=== PATIENT | female | born 1945 | race Caucasian/White ===

== ENCOUNTER → 2017-12-18 18:27 | Outpatient (CLI) | payer MEDICARE, OTHER, SELFPAY | PROVIDERS: Family Provider Internal Medicine; Visit Provider Physician Assistant Surgical | DX: J02.9 Acute pharyngitis, unspecified (principal) | CPT/HCPCS: 87081 ==

== ENCOUNTER → 2018-01-30 14:07 | Outpatient (CLI) | payer MEDICARE, OTHER, SELFPAY ==
--- NOTE | 2018-01-30 14:12 | RAD_ITS ---
STUDY: X-RAY - RIGHT HAND REASON FOR EXAM: Female, 72 years old. Right hand pain TECHNIQUE: 3 view(s) of the hand. COMPARISON: None. FINDINGS: No acute fracture or dislocation. Moderate to severe degenerative changes of the DIP joints throughout the hand with suggestion of erosive osteoarthritis. Degenerative change of the first carpometacarpal joint. Normal mineralization. Normal soft tissues. RAD/Hand Min 3 Views IMPRESSION: Significant degenerative changes as above Electronically Signed: Fernando Oliva DO at 9:08 EDT Tel , Service support ,
== END ==
PROVIDERS: Family Provider Internal Medicine; PCP Internal Medicine; Visit Provider Internal Medicine
DX: M79.641 Pain in right hand (principal)
CPT/HCPCS: 73130

== ENCOUNTER → 2018-04-09 14:56 | Outpatient (CLI) | payer MEDICARE, OTHER, SELFPAY ==
--- NOTE | 2018-04-09 14:56 | DT_ITS ---
This patient was seen during an EMR downtime April 02, 2018 - April 09, 2018. This patient may have a combination of paper and electronic documentation or all paper documentation. All documentation is viewable within the e-chart portion of [facility] for each patient visit.
--- NOTE | 2018-04-09 14:59 | BI_ITS ---
MAMMOGRAPHY - BILATERAL SCREENING REASON FOR EXAM: Female, 72 years old. Routine annual screening examination. PERTINENT HISTORY: JULIET HESTER GMA AGE 79 LOST 10# NO SX RT CYST ASPIRATION IN DR MORROW OFFICE 2013 TECHNIQUE: Digital bilateral breast starr (3D mammographic acquisition) in the CC and MLO projections. 2-D mediolateral oblique (MLO) and craniocaudad (CC) views of both breasts were obtained. CAD: Full Field Digital Mammography with Computer Added Detection was performed. COMPARISON: 03/22/2017, 10/28/2015 and 10/27/2014 FINDINGS: Breast Composition: The breasts are heterogeneously dense, which may obscure small masses. There are no dominant masses or suspicious calcifications. No other significant abnormalities are identified. BI/SCREENING MAMM (CAD), BILAT IMPRESSION: Stable bilateral screening mammogram. Yearly follow-up mammogram recommended. (A) ASSESSMENT CATEGORY: BIRADS Category 2: Benign. A letter regarding these results will be sent to the patient by the facility within 30 days. Approximately 10% of breast cancers are not detected by mammography. A normal mammogram should not delay biopsy of a clinically suspicious abnormality. [id number] Electronically Signed: Valentín Gross MD at 14:15 EDT Tel , Service support ,
== END ==
PROVIDERS: Family Provider Internal Medicine; PCP Internal Medicine; Visit Provider Internal Medicine
DX: Z12.31 Encounter for screening mammogram for malignant neoplasm of breast (principal)
CPT/HCPCS: 77063; 77067

== ENCOUNTER → 2018-04-17 13:22 | Outpatient (CLI) | payer MEDICARE, OTHER, SELFPAY ==
[2018-04-17 13:45] VITALS: BP 139/52; PULSE 63; RESP 16; O2SAT 94
--- NOTE | 2018-04-17 14:05 | CT_ITS ---
STUDY: CT CHEST WITHOUT CONTRAST REASON FOR EXAM: Female, 72 years old. Calcium scoring. This is a CT chest over read. RADIATION DOSAGE (If Supplied By Facility): CTDIvol = ( 8.99 ) mGy, DLP = ( 179.71 ) mGycm TECHNIQUE: Transaxial imaging was performed without the administration of intravenous contrast material. Individualized dose optimization techniques were used for this CT. COMPARISON: None. FINDINGS: There is a 2.1 cm x 2.2 cm rounded mass in the left upper lobe. A linear soft tissue density most likely a scar is seen emanating from the anterior portion of this nodular density. Correlation with a PET scan is recommended and tissue diagnosis is recommended as well. There is no demonstrated pleural abnormality. There are calcifications of the coronary arteries. Normal mediastinum. Normal hilar regions. Normal unenhanced pulmonary arteries. There is atherosclerotic calcification of the aortic arch. There are multi-level degenerative changes of the thoracic spine. Gallstones. CT/Limited Chest CT w/CCTA IMPRESSION: 2.1 cm x 2.2 cm mass in the left upper lobe. Correlation with a PET scan is recommended. Electronically Signed: Mikey Pierre MD at 15:38 EDT Tel [phone], Service support ,
[2018-04-17 14:39] VITALS: BP 132/78; PULSE 64; RESP 16; O2SAT 96
--- NOTE | 2018-04-18 09:38 | CA.SCORE ---
Calcium Scoring Date of Study:: 04/18/18 Coronary Calcium Scoring: Coronary calcium scoring. High-resolution computed tomography imaging of the chest was performed on 04/17/2018 with particular attention paid to the coronary arteries. Images from the examination were analyzed for the presence and extent of coronary artery calcification using coronary calcifications software. The patient tolerated the procedure well there were no complications. The results demonstrated evidence of mild calcification noted in the left anterior descending artery and the right coronary artery the total Wilton score was 30.4 which ranked the patient between the 25th and 50th percentile. The above is suggestive of mild plaque burden which suggests mild or minimal coronary stenosis based on the standard calcium score interpretation. Conclusion: Mild coronary calcification involving the right coronary artery predominantly.
== END ==
PROVIDERS: Family Provider Internal Medicine; PCP Internal Medicine; Visit Provider Internal Medicine
DX: E78.5 Hyperlipidemia, unspecified (principal); R89.2 Abnormal level of other drugs, medicaments and biological substances in specimens from other organs, systems and tissues
CPT/HCPCS: 75571; 76380

== ENCOUNTER → 2018-04-24 12:24 | Outpatient (CLI) | payer MEDICARE, OTHER, SELFPAY ==
--- NOTE | 2018-04-24 12:29 | BD_ITS ---
STUDY: DUAL ENERGY X-RAY ABSORPTIOMETRY / DXA REASON FOR EXAM: Female, 72 years old. The patient is postmenopausal. Loss of height. TECHNIQUE: Bone Mineral Density (BMD) measurements of lumbar spine and bilateral hips were obtained. COMPARISON: Comparison is made with prior study dated October 28, 2015. FINDINGS: Lumbar Spine (L1-L4): g/cm2 (1.445) / T-score (2.2) / Z-score (3.9) Findings are suggestive of normal bone density with a low fracture risk. Left Femur Total: g/cm2 (0.994) / T-score (0.1) / Z-score (1.5) Left Femoral Neck: g/cm2 (0.867) / T-score (-1.2) / Z-score (0.6) Right Femur Total: g/cm2 (1.006) / T-score (0.0) / Z-score (1.6) Right Femoral Neck: g/cm2 (0.895) / T-score (-1.0) / Z-score (0.8) The T-Scores on the most recent prior examination were: Lumbar Spine (L1-L4): There has been worsening of bone density since the previous examination. Left Femur Total: which represents a worsening of 9.2%. Right Femur Total: which represents a worsening of 80%. BD/Dexa Bone Density Study IMPRESSION: The patient is considered osteopenic as outlined below according to World [place] Organization (WHO) criteria with a moderate fracture risk. There has been worsening of bone density since the previous examination. Reference Information: The T-score is the number of standard deviations above or below the standard which is normal for young adults at their peak bone mineral density. The World Health Organization (WHO) interprets the T-scores as follows: Above -1 Normal bone density Between -1 and -2.5 Osteopenia Equal to / or below -2.5 Osteoporosis As a practical clinical guideline, osteopenia may be graded as follows: Mild -1 through -1.5 Moderate -1.6 through -2.0 Severe -2.1 through -2.4 The Z-score is the number of standard deviations above or below age-matched controls. A Z-score of less than -1.5 would be considered abnormal. References: 1. NIH Osteoporosis and Related Bone Diseases http://www.osteo.org 2. International Society for Clinical Densitometry http://www.iscd.org 3. National Osteoporosis Foundation http://www.nof.org Electronically Signed: Mikey Pierre MD at 14:05 EDT Tel [phone], Service support ,
== END ==
PROVIDERS: Family Provider Internal Medicine; PCP Internal Medicine; Visit Provider Internal Medicine
DX: Z78.0 Asymptomatic menopausal state (principal)
CPT/HCPCS: 77080

== ENCOUNTER → 2018-04-30 09:30 | Outpatient (CLI) | payer MEDICARE, OTHER, SELFPAY ==
--- NOTE | 2018-04-30 09:00 | PET_ITS ---
EXAMINATION: FDG PET/CT INDICATIONS: A 72-year-old female with reported history of pulmonary nodularity. COMPARISON EXAMINATION: CT of the chest report dated 04/17/18 INDEX LESION SIZE SUV INTERPRETATION Left upper hemithorax pulmonary parenchyma, left upper lobe 22.8 x 26.5-mm (frame 186) 1.1 Quantitative criteria for viable neoplasm are not fulfilled, sequential radiologic investigation recommended TECHNIQUE: Following the intravenous administration of 15.76 mCi of F-18 deoxyglucose via the left antecubital fossa, multiplanar image acquisitions of the neck, chest, abdomen and pelvis to level of mid thigh, obtained at one hour post radiopharmaceutical administration contemporaneously interpreted with the current CT of the neck, chest, abdomen and pelvis to level of mid thigh, dated 04/30/[address] of the chest report dated 04/17/18 reveal: SERUM GLUCOSE LEVEL: 112 mg/dl. HEIGHT: 61 inches. WEIGHT: 167 lbs. FINDINGS: 1. Mild increased glucose metabolism is defined in the left upper anterior hemithorax pulmonary parenchyma, left upper lobe, generating a corrected maximum calculated standard uptake value of 1.1. The maximal axial diameter of the corresponding non-calcified parenchymal density on review of CT of the thorax dated 04/30/18 is 22.8-mm (transverse) x 26.5-mm (AP). 2. Normal physiologic distribution of the radiopharmaceutical is apparent in the hepatic (3.3) and splenic parenchyma, both renal units, bladder and visualized intestinal tract. The visualized portion of the cerebral cortex, cerebellar hemispheres and basal ganglia demonstrates uniform and preserved glucose metabolism. Diffuse radiopharmaceutical concentration is noted in all four quadrants of the abdomen and pelvis. Prominent glucose concentration is observed in the anterior neck, laryngeal structures contiguous to the cricoids cartilage, cricopharyngeus musculature without evidence of soft tissue thickening most consistent with physiologic distribution of the radiopharmaceutical. Prominent glucose metabolism is defined in the descending thoracic aorta. Pertinent CT findings are as follows: CHEST: There are no additional parenchymal densities-nodules noted in the right-left hemithorax demonstrating discernible increased glucose metabolism. There is atherosclerotic calcification defined in the thoracic aorta without evidence of dilatation-aneurysm formation. Right-left subcentimeter axillary soft tissue densities are ametabolic. ABDOMEN AND PELVIS: Cholelithiasis is defined. There is atherosclerotic calcification defined in the abdominal aorta without evidence of dilatation-aneurysm formation. Pelvic arterial calcification is observed. Right-left inguinal soft tissue densities with fatty hilus formation are ametabolic. SKELETAL: Degenerative changes are noted in the cervical, thoracic and lumbar spine. PET/PET/CT Tumor Base -Thigh Init IMPRESSION: 1. NEGATIVE EXAMINATION. There is no definitive quantitative scintigraphic evidence of viable neoplasm. 2. Increased glucose concentration observed in the left upper hemithorax pulmonary parenchyma, left upper lobe, does not fulfill quantitative criteria for viable neoplasm. (Álvarez et al, Annals of Internal Medicine, 138:724, 2003). 3. Metabolic and/or anatomic stability may be ensured in the left hemithorax mild metabolic pulmonary parenchymal abnormality with repeat FDG PET study and/or CT of the thorax in three months. (Xiu, Journal of Nuclear Medicine 45:88, P2004 [place]illa, Seminars in Thoracic and Cardiovascular Surgery 14:292, 2002). 4. Prominent glucose concentration observed in the descending thoracic aorta is commensurate with activated leukocytes associated with atherosclerotic plaque formation. ([place] et al, Clinical Nuclear Medicine 29:93, 2004). Electronic Signature Blane Monzon D.O. Electronically Signed: Blane Monzon DO at 23:12 EDT Tel , Service support ,
== END ==
PROVIDERS: Family Provider Internal Medicine; PCP Internal Medicine; Visit Provider Internal Medicine
DX: R91.8 Other nonspecific abnormal finding of lung field (principal)
CPT/HCPCS: 78815; A9552

== ENCOUNTER → 2018-05-24 14:20 | Outpatient (CLI) | payer MEDICARE, OTHER, SELFPAY ==
--- NOTE | 2018-05-24 14:46 | RAD_ITS ---
STUDY: X-RAY CHEST REASON FOR EXAM: Female, 72 years old. Substernal chest pain TECHNIQUE: PA and lateral views of the chest. COMPARISON: CT scan from 04/17/2018 FINDINGS: There is a 2.19 x 2.27 cm nodule in the left suprahilar region. The lungs are clear and expanded. There is no demonstrated pleural abnormality. Normal size heart. Normal mediastinum and solo. Normal visualized pulmonary arteries. Normal visualized aortic arch and descending thoracic aorta. Normal visualized thoracic spine. Normal visualized ribs, clavicles, and shoulders. There is no demonstrated abnormality of the visualized soft tissue structures of the upper abdomen. RAD/Chest PA and Lateral IMPRESSION: No acute pulmonary process Stable 2.2 cm left suprahilar nodule Electronically Signed: Elijah Campbell MD at 15:19 EDT , Service support ,
[2018-05-24 16:14] LABS: CRP 5.31 mg/L (0.0-3.0)
[2018-05-24 16:16] LABS: Erythrocyte Sedimentation Rate 3 mm/hr (0-30)
[2018-05-29 08:24] LABS: Carcinoembryonic Antigen 1.4 ng/mL (0.0-4.7)
== END ==
PROVIDERS: Family Provider Internal Medicine; PCP Internal Medicine; Visit Provider Internal Medicine Pulmonary Disease
DX: R91.1 Solitary pulmonary nodule (principal); I10 Essential (primary) hypertension
CPT/HCPCS: 36415; 71046; 82378; 85652; 86140; 87385

== ENCOUNTER → 2018-09-03 09:54 | Outpatient (CLI) | payer MEDICARE, OTHER, SELFPAY ==
[2018-09-03 13:03] LABS: Triglycerides 117 mg/dL
[2018-09-04 13:39] LABS: LDL, Direct 120295 147 mg/dL (0-99)
== END ==
PROVIDERS: Family Provider Internal Medicine; PCP Internal Medicine; Referring Provider Internal Medicine; Visit Provider Internal Medicine
DX: E78.00 Pure hypercholesterolemia, unspecified (principal)
CPT/HCPCS: 36415; 83721; 84478

== ENCOUNTER → 2018-09-19 14:27 | Outpatient (CLI) | payer MEDICARE, OTHER, SELFPAY ==
--- NOTE | 2018-09-19 14:31 | US_ITS ---
STUDY: THYROID ULTRASOUND REASON FOR EXAM: Female, 72 years old. Difficulty swallowing TECHNIQUE: Ultrasound evaluation of the thyroid was performed with real-time and static rashid-scale imaging. COMPARISON: None. FINDINGS: RIGHT LOBE: The right lobe of the thyroid gland measures 5.3 x 2.1 x 2.0 cm. There is a homogeneous echotexture. Solitary calcification of the upper right thyroid lobe measures 3 mm. No soft tissue nodules. LEFT LOBE: The left lobe of the thyroid gland measures 4.3 x 2.1 x 1.5 cm. There is a homogeneous echotexture. There are no demonstrated solid, cystic or complex lesions. ISTHMUS: The isthmus measures 3.0 mm. The regional lymph nodes are normal. US/Thyroid IMPRESSION: 1. No solid or cystic nodules. 2. Enlarged right thyroid lobe. 3. Probable dystrophic calcification of the right thyroid lobe, doubtful significance. Electronically Signed: Hugo Ventura MD at 9:15 EST , Service support ,
== END ==
PROVIDERS: Family Provider Internal Medicine; PCP Internal Medicine; Referring Provider Internal Medicine; Visit Provider Internal Medicine
DX: M54.2 Cervicalgia (principal)
CPT/HCPCS: 76536

== ENCOUNTER → 2018-10-16 08:50 | Outpatient (CLI) | payer MEDICARE, OTHER, SELFPAY ==
--- NOTE | 2018-10-16 08:52 | RAD_ITS ---
STUDY: X-RAY - ESOPHAGUS (BARIUM SWALLOW) WITH FLUOROSCOPY REASON FOR EXAM: Female, 72 years old. Dysphagia. Goiter. TECHNIQUE: 16 view(s) of the esophagus were obtained following swallowing of barium. FLUOROSCOPY TIME (if supplied): (0:34) minutes/seconds COMPARISON: None. FINDINGS: There is no demonstrated esophageal foreign body. There is no demonstrated stricture or mucosal abnormality. Normal gastroesophageal junction, without a demonstrated hiatal hernia. The patient ingested a 12 mm tablet of barium. The tablet is trapped at the gastroesophageal junction. Normal visualized aortic arch and descending thoracic aorta. Normal visualized pulmonary parenchyma. There are diffuse degenerative changes of the visualized thoracic spine. RAD/Esophagus Only IMPRESSION: Normal plain film x-ray examination (barium swallow) of the esophagus. The 12 mm tablet of barium is trapped at the gastroesophageal junction. Electronically Signed: Mikey Pierre MD at 13:36 EST Tel [phone], Service support ,
--- OUTSIDE RECORDS SUMMARY | 2019-01-17 14:42 | XMS RPT_ITS | Continuity of Care Document ---
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 [address] Downtime Report MR#: [id number] Acct: [id number] Name: SACHIN SCHUSTER Rep #: [id number] : 1945 72 From: Donte De Jesus PCP: Sade Ocampo MD Status: REG CLI This patient was seen during an EMR downtime April 02, 2018 - April 09, 2018. This patient may have a combination of p aper and electronic documentation or all paper documentation. All documentation is viewable within the e-chart portion of [employer] for each patient visit. 17-Apr-[address] w/CCTA Result: Comments: See Note; NOTES: [facility] Imaging Services [address] [place] [address] w/CCTA MR#: [id number] Acct: [id number] Name: SACHIN SCHUSTER Rep #: [id number] : 1945 F 72 From: Mikey Pierre MD PCP: Sade Ocampo MD Status: REG CLI Study: Limited Chest CT w/CCTA Date of Exam: 04/17/18 Exam# [id number] Ordering Dr: Sade Ocampo MD STUDY: CT CHEST WITHOUT CONTRAST REASON FOR EXAM: Female, 72 years old. Calcium scoring. This is a CT chest over read. RADIATION DOSAGE (If Supplied By Facility): CTDIvol = ( 8.99 ) mGy, DLP = ( 179.71 ) mGy cm TECHNIQUE: Transaxial imaging was performed without the administration of intravenous contrast material. Individualized dose optimization techniques were used for this CT. COMPARISON: None. FINDINGS: There is a 2.1 cm x 2.2 cm rounded mass in the left upper lobe. A linear soft tissue density most likely a scar is seen emanating from the anterior portion of t his nodular density. Correlation with a PET scan is recommended and tissue diagnosis is recommended as well. There is no demonstrated pleural abnormality. There are calcifications of the coronary arter ies. Normal mediastinum. Normal hilar regions. Normal unenhanced pulmonary arteries. There is atherosclerotic calcification of the aortic arch. There are multi- level degenerative changes of the thorac ic spine. Gallstones. CT/Limited Chest CT w/CCTA IMPRESSION: 2.1 cm x 2.2 cm mass in the left upper lobe. Correlation with a PET scan is recomme nded. Electronically Signed: Mikey Pierre MD at 15:38 EDT Tel [phone], Service support , CC: Sade Ocampo MD Paradi Tender: Signed 09-Apr-2018 SCREENING MAMM (CAD), BILAT Result: Comments: See Note; NOTES: [facility] Imaging Services [address] [place] [address] SCREENING MAMM (CAD), BILAT MR#: [id number] Acct: [id number] Name: SACHIN SCHUSTER Rep #: [id number] : 1945 F 72 From: Valentín Gross MD PCP: Sade Ocampo MD Status: REG CLI Study: SCREENING MAMM (CAD), BILAT Date of Exam: 04/09/18 Exam# [id number] Ordering Dr: Sade Ocampo MD MAMM OGRAPHY - BILATERAL SCREENING REASON FOR EXAM: Female, 72 years old. Routine annual screening examination. PERTINENT HISTORY: FAM HX PAT GMA AGE 79 LOST 10# NO SX RT CYST ASPIRATION IN DR MORROW OFFIC E 2013 TECHNIQUE: Digital bilateral breast starr (3D mammographic acquisition) in the CC and MLO projections. 2-D mediolateral oblique (MLO) and craniocaudad (CC) views of both breasts were obtained. CA D: Full Field Digital Mammography with Computer Added Detection was performed. COMPARISON: 03/22/2017, 10/28/2015 and 10/27/2014 FINDINGS: Breast Composition: The br easts are heterogeneously dense, which may obscure small masses. There are no dominant masses or suspicious calcifications. No other significant abnormalities are identified. BI/SCREENING MAMM (CAD), BILAT IMPRESSION: Stable bilateral screening mammogram. Yearly follow-up mammogram recommended. (A) ASSESSM ENT CATEGORY: BIRADS Category 2: Benign. A letter regarding these results will be sent to the patient by the facility within 30 days. Approximately 10% of breast cancers are not detected by mammography . A normal mammogram should not delay biopsy of a clinically suspicious abnormality. [id number] Electronically Signed: Valentín Gross MD at 14:15 EDT Tel , Service support [phone], CC: Sade Ocampo MD Paradi Tender: Signed 30-Jan-2018 Hand Min 3 Views Result: Comments: See Note; NOTES: [facility] Imaging Services [address] [place] [id number] Hand Min 3 Views MR#: [id number] Acct: [id number] Name: SACHIN SCHUSTER Rosana Rep #: [id number] D OB: 1945 F 72 From: Fernando Oliva DO PCP: Sade Ocampo MD Status: REG CLI Study: Hand Min 3 Views Date of Exam: 01/30/18 Exam# [id number] Ordering Dr: Sade Ocampo MD STUDY: X-RAY - RIGHT HAND R KEON FOR EXAM: Female, 72 years old. Right hand pain TECHNIQUE: 3 view(s) of the hand. COMPARISON: None. FINDINGS: No acute fracture or dislocation. Moderate to s evere degenerative changes of the DIP joints throughout the hand with suggestion of erosive osteoarthritis. Degenerative change of the first carpometacarpal joint. Normal mineralization. Normal soft tis sues. RAD/Hand Min 3 Views IMPRESSION: Significant degenerative changes as above Electronically Signed: Fernando Oliva DO at 9:08 EDT T el , Service support , CC: Sade Ocampo MD Paradi Tender: Signed 18-Dec-2017 Urgent Care Visit Report Result: Comments: See Note; NOTES: [facility] [address] [place] [address] OFFICE VISIT Date of Service: 12/18/17 MR#: [id number] Acct: [id number] Name: SACHIN SCHUSTER Rosana braga #: [id number] : 1945 Provider: Kyle JIMENEZ Age/Sex: 72/F Location: [facility] Status: Signed Intake Vital Signs12/18/17 Height 5 ft 2 in 12/18/17 Weight: 170 lb 8 oz Intake Visit Reasons: SO RE THROAT Health Science Specialist Required: No Accompanied by: None Is patient in pain?: No Allergies No Known Allergies Allergy (Unverified 12/18/17 11:08) Medications losartan 100 mg-hydrochlorothiazide 12. 5 mg tablet PO 60 Days #60 12/18/17 [History Confirmed 12/18/17] pantoprazole 40 mg tablet,delayed release PO 60 Days #60 12/18/17 [History Confirmed 12/18/17] PFSH Medical History Arthritis (Acute) knee pain (Acute) HTN (hypertension) (Chronic) Surgical History History of hysterectomy (Acute) History of tonsillectomy (Acute) Family History Father Parkinson disease Social History Smoking St atus: Never smoker alcohol intake: never HPI HPI Details: SACHIN SCHUSTER, is a 72 F who presents to the office today for sore throat and nasal congestion for the past 2 days. Patient states that he r sore throat has been increasingly worsening and describes it as feeling like raw meat. She denies fever, chills, sweats. No known ill contacts. No nausea, vomiting, diarrhea. No other associated sympt oms or alleviating/aggravating factors. ROS Const Constitutional: No fever(s), headache(s), anorexia, chills or abnormal sleep pattern ENT ENT: Positive for post nasal drip and sore throat; no headach e(s) Resp Respiratory: No shortness of breath Cardio Cardiology: No irregular heart rhythm or palpitations Gastro GI: No nausea/dyspepsia Neuro Neurology: No headache(s) or behavioral changes Psych Psyc hiatric: No behavioral changes, No abnormal sleep pattern Exam Const General: cooperative, healthy appearing HENMT Head: normal to inspection Ears: hearing grossly normal bilaterally, TM's normal bila terally Nose: external nose normal, nasal discharge clear Mouth: oral mucosae normal Throat: abnormal tonsil bilaterally Resp Effort AND Inspection: normal respiratory effort Auscultation: Bilateral: Cl ear to Auscultation Cardio Palpation: normal PMI Rate: regular rate Rhythm: regular rhythm Neuro General: CN's II-XI intact bilaterally Psych Appearance: grossly normal Mental Status: mental status patricio sly normal Assessment AND Plan Problems 1. Acute pharyngitis, unspecified etiology J02.9 Status Acute Plan A strep test in the office today was negative. Encouraged to get plenty of rest, drink lots of clear liquids, and use Tylenol or Ibuprofen (unless contraindicated) for fever and comfort. Patient also educated on other symptomatic management techniques. To be seen in 7-10 days if no improvement ; sooner if worsening of symptoms. Patient advised of potential red flags and when appropriate report to the ED. Patient verbalized understanding of all the above. This note was generated with [employer] software. It may contain incorrect words, spelling, and punctuation that were not noted in checking the note before signing. Coding Level of Care Code Off vis,new,level 3 Diagnoses Acute ph aryngitis, unspecified etiology J02.9 Pharyngitis/tonsillitis etiology: unspecified etiology 12/18/17 1154 <Electronically signed by Kyle JIMENEZ> Date Kyle JIMENEZ Cosigner Signature: Date (if applicable) CC: 12-May-2017 Hip 2-3 Views with Pelvis Result: Comments: See Note; NOTES: [facility] Imaging Services [address] [place] [address] Verdana 4d Hip 2-3 Views with Pelvis MR#: [id number] Acct: [id number] Name: LEAHSACHIN J Rep #: [id number] : 1945 F 71 From: Mikey Pierre MD PCP: Sade Ocampo MD Status: [facility] CLI Study: Hip 2-3 Views with Pelvis Date of Exam: 05/12/17 Exam# [id number] Ordering Dr: Kodi Ocampo MD STUDY: X-RAY - PELVIS AND LEFT HIP REASON FOR EXAM: Female, 71 years old. Left hip pain. TECHNIQUE: Radiological exam, hip, unilateral, with pelvis when performed; 2 or 3 views. COMPARISON: N one. FINDINGS: There is a non-specific bowel gas pattern. There are multiple calcified phleboliths. Normal bilateral iliac wings, sacroiliac joints and visualized s acrum. Normal bilateral superior and inferior pubic rami. Normal pubic symphysis. Normal bilateral ischial tuberosities. Normal visualized femoral head. Normal acetabulum. Normal hip joint. RAD/Hip 2-3 Views with Pelvis IMPRESSION: Normal x-ray examination of the pelvis and hip. Electronically Signed: Mikey Pierre MD at 12:44 EDT Tel [phone], Service support , CC: Sade Ocampo MD Paradi Tender: Signed 12-May-2017 L/S Spine Min 4 Views Result: Comments: See Note; NOTES: [facility] Imaging Services [address] [place] [address] Verdana 4d L/S Spine Min 4 Views MR#: [id number] Acct: [id number] Name: SACHIN SCHUSTER p #: [id number] : 1945 F 71 From: Mikey Pierre MD PCP: Sade Ocampo MD Status: REG CLI Study: L/S Spine Min 4 Views Date of Exam: 05/12/17 Exam# [id number] Ordering Dr: Sade Ocampo MD STUDY: X-RAY - LUMBAR SPINE REASON FOR EXAM: Female, 71 years old. Low back and left leg pain. TECHNIQUE: 5 view(s) of the lumbar spine were obtained including oblique views. COMPARISON: None FINDINGS: Normal lumbar lordosis. There is no substantial scoliosis. Minimal anterior listhesis of L4 on L5. Normal vertebral bodies and endplates. Mild degree of disc spa ce narrowing at the L4-L5 and L5-S1 levels. Facet joint osteoarthritis. Facet joint osteoarthritis. There is atherosclerotic calcification of the abdominal aorta without a demonstrated aneurysm. RAD/L/S Spine Min 4 Views IMPRESSION: Degenerative changes of the spine, as detailed above. Electronically Signed: Mikey Pierre MD a t 12:43 EDT Tel [phone], Service support , CC: Sade Ocampo MD Paradi Tender: Signed 29-Mar-2017 Breast Limited Unilateral Result: Comments: See Note; NOTES: [facility] Imaging Services [address] [place] [address] Lillie 4d Breast Limited Unilateral MR#: [id number] Acct: [id number] Name: SACHIN SCHUSTER Rep #: [id number] : 1945 F 71 From: Mikey Pierre MD PCP: Sade Ocampo MD Status: REG CLI Study: Breast Limited Unilateral Date of Exam: 03/29/17 Exam# [id number] Ordering Dr: Kodi Ocampo MD STUDY: ULTRASOUND BREAST - RIGHT REASON FOR EXAM: Female, 71 years old. Abnormal screening mammogram. TECHNIQUE: Axial and longitudinal images of the RIGHT breast were performed with a high re solution ultrasound transducer. COMPARISON: Comparison is made with prior mammogram dated March 22, 2017 and prior right breast ultrasound dated May 21, 2014. FINDIN GS: RIGHT Breast: There is evidence of a retroareolar ductal dilatation. Adjacent to the nipple, there is an 8 mm x 3 mm x 2 mm hypoechoic nodule. This may be a dilated duct with debris within it. This is unchanged. US/Breast Limited Unilateral IMPRESSION: Mildly dilated retroareolar ducts. Stable 8 mm x 2 mm x 2 mm hypoechoic nodule most likel y representing a dilated duct with debris within it. This is unchanged. ASSESSMENT CATEGORY: BIRADS Category 2: Benign. A letter regarding these results will be sent to the patient by the facility within 30 days. Electronically Signed: Mikey Pierre MD at 15:51 EDT Tel [phone], Service support , CC: Sade Ocampo MD Paradi Tender: Signed 22-Mar-2017 SCREENING MAMM (CAD), BILAT Result: Comments: See Note; NOTES: [facility] Imaging Services [address] [place] [address] Florindana 4d SCREENING MAMM (CAD), BILAT MR#: [id number] Acct: [id number] Name: HELLEN SCHUSTER Rep #: [id number] : 1945 F 71 From: Mikey Pierre MD PCP: Sade Ocampo MD Status: REG CLI Study: SCREENING MAMM (CAD), BILAT Date of Exam: 03/22/17 Exam# [id number] Ordering Dr: Sade Ocampo MD MAMMOGRAPHY - BILATERAL SCREENING REASON FOR EXAM: Female, 71 years old. Routine annual screening examination. PERTINENT HISTORY: Grandmother with breast cancer. TECHNIQUE: Digital bilate ral breast starr (3D mammographic acquisition) in the CC and MLO projections. 2- D mediolateral oblique (MLO) and craniocaudad (CC) views of both breasts were obtained. CAD: Full Field Digital Mammography with Computer Added Detection was performed. COMPARISON: Comparison is made with prior study dated October 28, 2015 and October 27, 2014. FINDINGS: Breast Compos ition: There are scattered areas of fibroglandular density. I suspect a 1 cm nodular density along the inferior medial portion of the right breast. Correlation with ultrasound is recommended. No other significant abnormalities are identified. HPBI/SCREENING MAMM (CAD), BILAT IMPRESSION: I suspect a 1 cm nodular density along the inferior media l portion of the right breast as described. Correlation with ultrasound is recommended. ASSESSMENT CATEGORY: BIRADS Category 0: Incomplete. Need additional imaging evaluation. A letter regarding these results will be sent to the patient by the facility within 30 days. Approximately 10% of breast cancers are not detected by mammography. A normal mammogram should n ot delay biopsy of a clinically suspicious abnormality. [id number] Electronically Signed: Mikey Pierre MD at 8:05 EDT Tel [phone], Service support , CC: Sade Ocampo MD Paradi Tender: Signed 21-Jun-2016 PT D/C Summary (1) Result: Comments: See Note; NOTES: [facility] [address] [place] [address] Fax REHABILITATION SERVICES [employer] JOSE SUMMARY MR#: [id number] Acct: [id number] Name: SACHIN SCHUSTER Rep #: [id number] : 1945 70 From: Dora Cunningham MPT Referring Dr.: OUT OF TOWN DOCTOR Status: REG RCR Insurance: MEDICARE P ART A B AETNA HP - PT D/C Summary It has been my pleasure to treat SACHIN SCHUSTER under orders from Out of Town Doctor, RADHA COTTRELL for the diagnosis of Chondroplasty and medial menisectomy for a total of 13 visit(s). Discharge Date: Please see the following information for a summary of their discharge status. - Subjective Subjective: Pt reports that she has been having less pain sinc e walking better with heel to toe pattern. said to continue with PT for another 4 weeks. Pt conmplains of a little bit of burning below the incision. If pt stands very long it bothers her still but t hat is still much better. Has done 2 round of the exercises today. - Pain R knee pain Pain Intensity (Out of 10): 1 - Objective Objective/Function: Pt had increase discomfort with foam rolling and palpation on the R Quad. Improved knee ext with gait - Goals Goal 1:: I HEP Goal Progress: Goal Met Goal 2:: Stand long enough to get her hair done or complete meal prep without having to sit down. Goa l Progress: Goal Met Goal 3:: Up and down stairs recip with 1 rail with ease and no pain Goal Progress: Progressing Goal 4:: Increase R hip and knee strength by 1/2 muscle. Goal Progress: Progressing Go al 5:: Decrease pain and stiffness to 1/10 by DC and walk normally. Goal Progress: Not Progressing - Plan Plan: Continue to progress R knee ROM AND STRENGTH AND KNEE EXT. ENCOURAGE PROPER GAIT VISION REHABILITATION THERAPIST S - D/C Information If there are questions or concerns regarding this patient's physical therapy, please feel free to call me at [phone]. Thank you for the referral of this patient. Sincerely, An carmel Cunningham <Electronically signed by Dora DODSON> 06/21/16 9928 CC: RADHA COTTRELL; Sade Ocampo MD; OUT OF TOWN DOCTOR Signed 25-May-2016 Re-Evaluation - PT (1) Result: Comments: See Note; NOTES: [facility] [place] [address] Fax REEVALUATION / ME DICARE RECERTIFICATION [place] [facility] PHYSICAL THERAPY MR#: [id number] Acct: [id number] Name: SACHIN SCHUSTER Rep #: [id number] : 1945 70 From: Dora DODSON Referring : OUT OF TOWN DOCTOR Status: REG RCR Insurance: MEDICARE PART A B AETNA Out of Town Doctor, RADHA COTTRELL It has been my pleasure to treat SACHIN SCHUSTER over the last 11 visits for Chondroplasty an d medial menisectomy. Please see the progress note below for an update on the physical therapy plan of care! Subjective: I could not sleep on Monday after PT and this morning every step I take it is painful along the joint and under the patella. I think we ar doing something here to aggrevate it. Objective/Function: Pt still walks with a bent knee. Feels that could be why she is having infra pa tellar pain Plan Plan: Pt willcontinue to do SLR etc at home. and rest until next Monday and resume PT. Goals Goal 1:: I HEP Goal Time Frame: 4-6 Weeks Goal Progress: Goal Met Goal 2:: Stand lo ng enough to get her hair done or complete meal prep without having to sit down. Goal Time Frame: 4-6 Weeks Goal Progress: Goal Met Goal 3:: Up and down stairs recip with 1 rail with ease and no clara n Goal Time Frame: 4-6 Weeks Goal Progress: Progressing Goal 4:: Increase R hip and knee strength by 1/2 muscle. Goal Time Frame: 4-6 Weeks Goal Progress: Progressing Goal 5:: Decrease pain and st iffness to 1/10 by DC and walk normally. Goal Time Frame: 4-6 Weeks Goal Progress: Not Progressing Anticipated Interventions Therapeutic Exercise to Include: Strength training, Flexibilty training, Gait and locomotor training, Active ROM Functional Training to Include: Gait training Comments: stairs Cryotherapy (ice pack, ice massage): Yes Ultrasound (thermal/non thermal): Yes Please do not hesitate to contact me at [phone] by phone or if you have questions or concerns regarding this new plan of care! Sincerely, Dora Cunningham <Electronically signed by Dora Cunningham MPT> 05/25/161916 CC: RADHA COTTRELL; Sade Ocampo MD; OUT OF TOWN DOCTOR Signed For Medicare only, by signing this I certify the pl an of care. Physicians Signature Date 29-Apr-2016 Inital Evaluation (1) - PT Result: Comments: See Note; NOTES: [facility] [address] [place] [address] Rd[address] [place] [address] Fax REHABILITATION SE RVICES INITIAL EVALUATION MR#: [id number] Acct: [id number] Name: SACHIN SCHUSTER Rep #: [id number] : 1945 70 From: Dora DODSON Referring Dr.: OUT OF TOWN DOCTOR Status: REG RCR Insurance: MEDICARE PART A B AETNA Patient's Visit Information SACHIN SCHUSTER is a 70 year old F referred to Physical Therapy by Out of Town Doctor RADHA COTTRELL with a diagnosis of Kevyn droplasty and medial menisectomy. Date of Evaluation: 04/29/16 Physical Therapist: Dora Cunningham - Visit Plan Frequency: 3x /Week Duration: 4 Weeks - Subjective Subjective: Pt likes to go by [place]. Pt reports that 3 weeks ago toagnesshelley pt had menisuc surgery. Pt reports that she has a lot of arthritis and Dr suggested PT. She reports that her knee is still sore and stiff. Pt has trouble with s tanding for long periods of time and causes increase stiffness and pain. Pt has not tried stairs. Pt [place]. Pt had trouble going down stairs before the meniscal tear. Pt reports that her R knee is full or arthritis. Pt is no longer using her walker. Pt had a chondroplasty and menisectomy 3 weeks ago. - Pain R knee pain Pain Intensity (Out of 10): 3 - Objective R LE girth measurements: 36.5 Tibial tuberosity, 37.7, 43. L LE girth measurements: 36.4 cm , 38.6, 41cm. R knee AROM: -3 degrees to 92 degrees. L knee AROM: 0-115 degrees. SLR R knee 2 X 10 with slight lag and weakness present. Increase discomfort for QS under the knee cap. Stairs: up and down recip with 2 handrails with slight antalgic gait. Gait: ambulates with slight de creased stance time on the R. - Goals Goal 1:: I HEP Goal Time Frame: 4-6 Weeks Goal 2:: Stand long enough to get her hair done or complete meal prep without having to sit down. Goal Time Frame: 4-6 Weeks Goal 3:: Up and down stairs recip with 1 rail with ease and no pain Goal Time Frame: 4-6 Weeks Goal 4:: Increase R hip and knee strength by 1/2 muscle. Goal Time Frame: 4-6 Weeks Goal 5:: Decrease pain and stiffness to 1/10 by DC and walk normally. Goal Time Frame: 4-6 Weeks - Rehabilitation Potential Rehabilitation Potential: Good - Anticipated Interventions Therapeutic Exercise to Include: Strength training, Flexibilty training, Gait and locomotor training, Active ROM For the Purpose of:: To decrease pain, To decrease swelling/inflammation, To increase ROM, To improve nutr ient delivery to tissue, To improve muscle performance and motor function, To improve ability to perform ADL's, To improve ability of physical actions for home/community/ work/leisure, To improve gait and locomotor functions, To improve health of tissue, To decrease soft tissue restriction, To increase flexibility/ROM Functional Training to Include: Gait training Comments: stairs For the Purpose o f:: To improve ability of physical actions for home/community/work/leisure, To improve gait and locomotor functions Cryotherapy (ice pack, ice massage): Yes Ultrasound (thermal/non thermal): Yes For the Purpose of:: To decrease pain, To decrease swelling/inflammation, To increase ROM, To improve nutrient delivery to tissue, To increase oxygenation perfusion Thank you for the opportunity to ev aluate your patient. For Medicare and Medicare HMO plans, please review the plan of care and approve it. It will need to be FAXED BACK to us at [phone] for Medicare purposes. Please let me kn ow if there are questions or concerns regarding this plan of care. Physician Signature: Date: <Electronically signed by Dora coyle MPT> 04/29/16 1338 CC: RADHA COTTRELL; Sade Ocampo MD; OUT OF TOWN DOCTOR Signed For Medicare only, by signing this I certify the plan of care . Physicians Signature Date 09-Mar-2016 Lower Ext Joint Only (Routine) Result: Comments: See Note; NOTES: [facility] Imaging Services [address] [place] [address] Verdana 4d Lower Ext Joint Only (Routine) MR#: [id number] Acct: [id number] Na me: SACHIN SCHUSTER Rep #: [id number] : 1945 F 70 From: Hermann Inman MD PCP: Sade Ocampo MD Status: REG CLI Study: Lower Ext Joint Only (Routine) Date of Exam: 03/09/16 Exam# [id number] O rdering Dr: Marck Armendariz STUDY: MRI RIGHT KNEE REASON FOR EXAM: Female, 70 years old. Right knee pain, swelling and difficulty bearing weight TECHNIQUE: Standardized fat and water weighted pu lse sequences were obtained in all 3 orthogonal planes. COMPARISON: None. FINDINGS: There is a horizontal tear of the posterior horn of the medial meniscus, e xtending to the inferior articular surface sagittal proton density series 3 image 3). There is no displaced fragment. There is meniscal extrusion The body and anterior horn of the medial meniscus are normal. Normal meniscal root ligaments.. There is diffuse, greater than 50% thickness articular cartilage loss of the medial femorotibial compartment. Normal medial femoral condyle and tibial plateau . Normal medial collateral ligamentous complex (MCL). Normal distal semimembranosus, gracilis and semitendinosus tendons. Normal lateral meniscus. Normal hyaline cartilage of the lateral femorotib ial compartment. Normal lateral femoral condyle and tibial plateau. Normal proximal tibiofibular articulation. Normal lateral collateral (fibular) ligament. Normal popliteus tendon . Normal biceps femoris tendon. Normal anterior cruciate ligament (ACL). Normal posterior cruciate ligament (PCL). Normal congruent patellofemoral articulation. There is diffuse, greater than 50% thickness articular cartilage loss of the patellofemoral compartment. Normal medial and lateral patellar retinaculum. Normal quadriceps tendon. Normal patellar tendon. Normal Hoffa's fat pad. Ther e is a small volume joint effusion. There is a small popliteal cyst The soft tissues are unremarkable. The otherwise visualized osseous structures are unremarkable. __ IMPRESSION: Horizontal tear of the posterior horn of the medial meniscus with meniscal extrusion. 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 Small volume joint eff usion with small popliteal cyst. Electronically Signed: Hermann Inman MD, FACR at 8:04 EDT , Service support [phone], CC: MARCK ARMENDARIZ; Sade Ocampo MD Paradi Tender: Signed 28-Oct-2015 Bilat Scrn Digital AND CAD Result: Comments: See Note; NOTES: [facility] Imaging Services [address] [place] [address] Verdana 4d Bilat Scrn Digital AND CAD MR#: [id number] Acct: [id number] Name: SACHIN SCHUSTER Rep #: [id number] : 1945 F 69 From: Jose Elias Campbell MD PCP: Sade Ocampo MD Status: REG CLI Study: Bilat Scrn Digital AND CAD Date of Exam: 10/28/15 Exam# [id number] Ordering Dr: Sade Ocampo MD MAMMOGRAPHY - BILATERAL SCREENING REASON FOR EXAM: Female, 69 years old. Routine annual screening examination. PERTINENT HISTORY: Grandmother with breast cancer. TECHNIQUE: Digital examination. Mediolateral oblique (MLO) and craniocaudad (CC) views of both breasts were obtained. CAD: CAD was performed on this study. COMPARISON: 10/27/14 ____ FINDINGS: Breast Composition: There are scattered areas of fibroglandular density. There are no dominant masses or suspicious calcifications. Scattered benign punctate calcifications No oth er significant abnormalities are identified. There has been no significant change since the prior study. IMPRESSION: Stable bilateral screening mammogram. Yearly follow-up recommended. (A) ASSESSMENT CATEGORY: BIRADS Category 2: Benign. A letter regarding these results will be sent to the patient by the facility within 30 days. BR2 Approximately 10% of breast cancers are not detected by mammography. A normal mammogram should not delay biopsy of a clinically suspicious abnormality. [id number] Electronically Betsy d: Elijah Campbell MD at 11:23 EST Tel , Service support [phone], CC: Sade Ocampo MD Paradi Tender: Signed 28-Oct-2015 Dexa Bone Density Study (HP) Result: Comments: See Note; NOTES: [facility] Imaging Services [address] [place] [address] Verdana 4d Dexa Bone Density Study (HP) MR#: [id number] Acct: [id number] Name : SACHIN SCHUSTER Rep #: [id number] : 1945 F 69 From: Mikey Pierre MD PCP: Sade Ocampo MD Status: REG CLI Study: Dexa Bone Density Study (HP) Date of Exam: 10/28/15 Exam# [id number] Ella staples Dr: Sade Ocampo MD STUDY: DUAL ENERGY X-RAY ABSORPTIOMETRY / DXA REASON FOR EXAM: Female, 69 years old. The patient is postmenopausal. Loss of height. TECHNIQUE: Bone Mineral Density (BMD) measurements of lumbar spine and bilateral hips were obtained. COMPARISON: Comparison is made with prior study dated May 06, 2004. FINDINGS: Lumbar Spin e (L1-L4): g/cm2 (1.490) / T-score (2.6) / Z-score (4.2) Findings are suggestive of normal bone density with a low fracture risk. Left Femur Total: g/cm2 (1.095) / T-score (0.7) / Z-score (2.1) Left Femoral Neck: g/cm2 (0.950) / T-score (-0.6) / Z-score (1.0) Right Femur Total: g/cm2 (1.093) / T-score (0.7) / Z-score (2.1) Right Femoral Neck: g/cm2 (0.945) / T-score (-0.7) / Z-score (1.0) The T-Scores on the most recent prior examination were: Lumbar Spine (L1-L4): There has been improvement of bone density since the previous examination. Left Femur Total: which represents a worsening o f 0.5%. IMPRESSION: The patient is considered normal as outlined below according to World Bal[place] Organization (WHO) criteria with a low fracture risk. There has been improvement of bone density since the previous examination. Reference Information: The T-score is the number of standard deviations above or below the sta ndard which is normal for young adults at their peak bone mineral density. The World Health Organization (WHO) interprets the T-scores as follows: Above -1 Normal bone density Between -1 and -2.5 O steopenia Equal to / or below -2.5 Osteoporosis As a practical clinical guideline, osteopenia may be graded as follows: Mild -1 through -1.5 Moderate -1.6 through -2.0 Severe -2.1 through -2.4 T he Z-score is the number of standard deviations above or below age-matched controls. A Z-score of less than -1.5 would be considered abnormal. References: 1. NIH Osteoporosis and Related Bone Diseas es http://www.osteo.org 2. International Society for Clinical Densitometry http://www.iscd.org 3. National Osteoporosis Foundation http://www.nof.org Electronically Signed: Mikey Pierre MD at 8:33 EST Tel [phone], Service support [phone], CC: Sade Ocampo MD Paradi Tender: Signed 27-Oct-2014 Bilat Scrn Digital AND CAD Result: Comments: See Note; NOTES: [facility] Imaging Services [address] [place] [address] Breast Imaging Report MR#: [id number] Acct: [id number] Name: Leigh Ann SCHUSTER Rep #: [id number] : 1945 F 68 From: Jose Elias Campbell MD PCP: Sade Ocampo MD Status: REG CLI Study: Elizabeth Kuldip Digital AND CAD Date of Exam: 10/27/14 Exam# [id number] Ordering Dr: Sade Ocampo MD MAMM OGRAPHY - BILATERAL SCREENING REASON FOR EXAM: Female, 68 years old. Routine annual screening examination. PERTINENT HISTORY: Grandmother with breast cancer. TECHNIQUE: Digital examination. Medio lateral oblique (MLO) and craniocaudad (CC) views of both breasts were obtained. CAD: CAD was performed on this study. COMPARISON: 10/11/13 FINDINGS: Breast C omposition: There are scattered areas of fibroglandular density. There are no dominant masses or suspicious calcifications. No other significant abnormalities are identified. There has been no sign ificant change since the prior study. IMPRESSION: Stable bilateral screening mammogram. Yearly follow-up recommended. (A) A SSESSMENT CATEGORY: BIRADS Category 2: Benign. A letter regarding these results will be sent to the patient by the facility within 30 days. BR2 Approximately 10% of breast cancers are not detected by mammography. A normal mammogram should not delay biopsy of a clinically suspicious abnormality. Electronically Signed: Elijah Campbell MD at 14:42 EST Tel [phone], Service supp ort [phone], CC: Sade Ocampo MD Paradi Tender: Signed 17-Oct-2014 EKG (40037) Comments: see scanned document of test done to see results reviewed today with patient Result: [MEASUREMENTS ANALYSIS] Date of Test: 10/17/2014 10:58:06; Heart Rate: 77; [place] Interval: 142; QRS: 96; QT Interval: 382; Corrected QT Interval (QTc): 411; P Wave Gardner: 43; QRS Wave Gardner: 10; T Wave Gardner: -1; Blood Pressure: 120/80 [ECG DIAGNOSTIC STATEMENTS] Date of Test: 10/17/2014 10:58:06; Summary: Sinus Rhythm WITHIN NORMAL LIMITS 21-May-2014 Breast Unilateral Result: Comments: See Note; NOTES: [facility] Imaging Services [address] [place] [address] Ultrasound Report MR#: [id number] Acct: [id number] Name: Leigh Ann SCHUSTER Rep #: [id number] : 1945 F 68 From: Valentín Gross MD PCP: Sade Ocampo MD Status: REG CLI Study: Breast Unilateral Date of Exam: 05/21/14 Exam# [id number] Ordering Dr: Teodoro Humphries MD STUDY: ULTRAS OUND BREAST(S) - RIGHT REASON FOR EXAM: Female, 68 years old. TECHNIQUE: Axial and longitudinal images of the RIGHT breast were performed with a high resolution ultrasound transducer. COMPARISON: None. FINDINGS: RIGHT BREAST: The lower inner aspect of the right breast was examined. There is a 0.4x0.7x0.4 cm hypo- echoic lesion has decreased in size sinc e the previous study it measured previously 1.2 cm x 1.3 cm x 0.4 cm at the 6:00 position of the breast at 2 cm from nipple. There is also evidence of a 5x5x4 mm hypoechoic probably cystic structure in that has remained stable in size since earlier study it measured previously 5 mm x 6 mm x 4 mm this may represent focally dilated ducts with debris within it. Diagnostic aspiration is recommended . IMPRESSION: Findings in the inferior medial aspect of the right breast as described. These may represent dilated ducts with debris the lesion at 6:00 N+2 has decreased in size. The lesion at 3:00 N +1 remains stable ASSESSMENT CATEGORY: BIRADS Category 3: Probably Benign Finding - Initial Short-Interval Follow-up Granados ggested. Electronically Signed: Bree Gross MD at 17:35 EDT Tel , Service support [phone], CC: Sade Ocampo MD; Teodoro Humphries MD Paradi Tender: Signed 25-Feb-2014 Upper Ext Joint Only(Routine) Result: Comments: See Note; NOTES: [facility] Services [address] [place] [address] MRI Report MR#: [id number] Acct: [id number] Name: Leigh Ann SCHUSTER Rep #: [id number] : 1945 F 68 From: Hossein Matos MD PCP: Sade Ocampo MD Status: REG CLI Study: Upper Ext Joint Only(Routine) Date of Exam: 02/25/14 Exam# [id number] Ordering Dr: Christian Beard DO STUDY: MRI L EFT SHOULDER REASON FOR EXAM: Female, 68 years old. Shoulder pain. TECHNIQUE: Standardized fat and water weighted pulse sequences were obtained in all 3 orthogonal planes. COMPARISON: Radiographs dated February 14, 2014 showing osteoarthritic changes. FINDINGS: There is supraspinatus tendinosis with articular surface fraying of the anterior fibers and thin nidia/attenuation of the mid and posterior fibers (coronal series 4 images 9-13). There is infraspinatus tendinosis with a small partial articular surface tear of the tendon measuring 6 mm in diameter and occupying approximately 30% of tendon thickness (coronal series 4 image 8). There is mild subscapularis tendinosis with thickening without a full- thickness tear (axial series 3 images 9-14). Norm al teres minor tendon. Normal supraspinatus muscle. Normal infraspinatus muscle. Normal subscapularis muscle. Normal teres minor muscle. There is moderate glenohumeral joint arthrosis with loss of articular cartilage and osteophyte formation and a small glenohumeral joint effusion (axial series 3 images 8-14). There is cystic change in the lateral aspect of the humeral head (axial series 3 im age 8). Normal biceps labral complex. Normal intracapsular long biceps tendon. Normal labrum. Normal capsulo- ligamentous complex. Normal rotator interval. There is acromioclavicular joint hypertrop hy with marked narrowing of the subacromial space (sagittal series 6 images 4- 10). There is a Type II morphology (curved), with a neutral orientation. There is a small amount of fluid in the subacrom ial-subdeltoid bursa (coronal series 4 images 8-10). Normal visualized coracohumeral and coracoacromial ligaments. Normal quadrilateral space. Normal axillary space. Normal deltoid muscle. Normal t rapezius muscle. IMPRESSION: Supraspinatus and subscapularis tendinosis without a full-thickness tear. Infraspinatus tendinosis with a partial articular surface tear as described. Moderate glenohumeral joint arthrosis. Cystic change in the humeral head. Acromioclavicular joint hypertrophy with marked narrowing of the subacromial space. Small glenohum eral joint effusion with fluid in the subacromial-subdeltoid bursa. Electronically Signed: Hossein Matos MD at 11:58 EDT , Service support [phone], CC: Sade Ocampo MD; Christian Beard Paradi Tender: Signed 14-Feb-2014 Shoulder min 2 Views Result: Comments: See Note; NOTES: [facility] Imaging Services [facility] [place] [address] Radiology Report MR#: [id number] Acct: [id number] Name: Leigh Ann SCHUSTER Rep #: [id number] : 1945 F 68 From: Mikey Pierre MD PCP: Sade Ocampo MD Status: REG CLI Study: Shoulder min 2 Views Date of Exam: 02/14/14 Exam# [id number] Ordering Dr: Christian Beard DO STUDY: X -RAY - LEFT SHOULDER REASON FOR EXAM: Female, 68 years old. History of shoulder dislocations. TECHNIQUE: 3 view(s) of the shoulder. COMPARISON: None. FINDING S: Normal glenohumeral articulation. There is degenerative arthrosis of the acromioclavicular joint without inferior osseous spur formation. Normal acromion. There is an enthesopathic erosion of th e humeral head. The soft tissue structures are unremarkable. Normal visualized pulmonary apex. IMPRESSION: Degenerative changes of the acromioclavicular joint . Electronically Signed: Mikey Pierre MD at 14:06 EDT Tel [phone], Service support [phone], 0055 RAD/Shoulder min 2 Views IMPRESSION: Degenerative changes of the acromioclavicular joint. Electronically Signed: Mikey Pierre MD at 14:06 EDT Tel [phone], Service support [phone], CC : Sade Ocampo MD; Christian Beadr Paradi Tender: Signed 16-Oct-2013 Breast Unilateral Result: Comments: See Note; NOTES: [facility] Imaging Services [address] [place] [address] Ultrasound Report MR#: [id number] Acct: [id number] Name: LEAHLeigh AnnAN Rep #: [id number] : 1945 F 67 From: Mikey Pierre MD PCP: Sade Ocampo MD Status: REG CLI Study: Breast Unilateral Date of Exam: 10/16/13 Exam# [id number] Ordering Dr: Sade Ocampo MD STUDY: ULT RASOUND BREAST(S) - RIGHT REASON FOR EXAM: Female, 67 years old. Asymmetrical breast tissue in the right breast. TECHNIQUE: Axial and longitudinal images of the RIGHT breast were performed with a high resolution ultrasound transducer. COMPARISON: Comparison is made with prior mammogram dated October 11, 2013. FINDINGS: RIGHT BREAST: The lower inner a spect of the right breast was examined. There is a 1.2 cm x 1.3 cm x 0.4 cm hypoechoic nearly cystic structure with low-level echoes within the at the 6:00 position of the breast at 2 cm from nipple. A linear lucent extension is seen. There is also evidence of a 5 mm x 6 mm x 4 mm hypoechoic mostly cystic structure at the 3:00 position of the breast at 1 cm from the nipple. These may represent fo emy dilated ducts with debris within it. Diagnostic aspiration is recommended. IMPRESSION: Findings in the inferior medial aspect of the right breast as descr ibed. These may represent dilated ducts with debris within them. Diagnostic aspiration is recommended. ASSESSMENT CATEGORY: BIRADS Category 4: Suspicious Abnorm ality - Biopsy Should Be Considered. Electronically Signed: Mikey Pierre M.D. at 16:45 EST , Service support [phone], CC: Sade Ocampo MD Paradi Tender: Signed 11-Oct-2013 Bilat Scrn Digital & CAD Result: Comments: See Note; NOTES: [facility] Imaging Services [address] [place] [address] Breast Imaging Report MR#: [id number] Acct: [id number] Name: Leigh Ann SCHUSTER Rep #: [id number] : 1945 F 67 From: Mikey Pierre MD PCP: Sade Ocampo MD Status: REG CLI Exam# [id number] Ordering Dr: Sade Ocampo MD MAMMOGRAPHY - BILATERAL SCREENING REASON FOR EXAM: Nader gutiérrez, 67 years old. Routine annual screening examination. PERTINENT HISTORY: Grandmother with breast cancer. TECHNIQUE: Digital examination. Mediolateral oblique (MLO) and craniocaudad (CC) views of both breasts were obtained. CAD: CAD was performed on this study. COMPARISON: Comparison is made with prior examination dated October 09, 2012 and October 04, 2011. FINDINGS: The breast composition is composed of scattered fibroglandular tissues ranging from 25% to 50% of the breast. Asymmetry of breast tissue in the inferior medial aspect of the rig ht breast. Correlation with ultrasound is recommended. No other significant abnormalities are identified. There has been no significant change since the prior study. ____ IMPRESSION: Asymmetry of breast tissue along the inferior medial aspect of the right breast. This was visualized on prior studies. Correlation with ultrasound is recommended. ASSESSMENT CATEGORY: BIRADS Category 0: Incomplete. Need additional imaging evaluation. A letter regarding these results will be sent to the patient by the facility within 30 da ys. Approximately 10% of breast cancers are not detected by mammography. A normal mammogram should not delay biopsy of a clinically suspicious abnormality. Electronically Signed: Mikey hernandez M.D. at 15:33 EST , Service support [phone], CC: Sade Ocampo MD Paradi Tender: Signed Immunization Name Dates Details Influenza (3 years and up) on: 13-Oct-2006 Influenza (3 years and up) on: 22-Aug-2007 Comments: lot #[id number] exp- 02/04 RDLT patient tolerated well Pneumococcal (2 years and up) on: 22-Aug-2007 Comments: lot # [id number] exp- 09/06 LDLT patient tolerated well Family History Unknown Family Member Name Dates Details Daughter 1 Status: Active Daughter 2 Status: Active Father Comments: carotid artery disease, Parkinson's, dementia 2009 91 yo Status: Active Maternal Grandfather Comments: 69 yo emphysema. sudden . nonsmoker but chew tobacco Status: Active Maternal Grandmother Comments: cancer of jaw from snuff. 80's Status: Active Mother Comments: Arthritis, severe PVD/stent dx 87yo when had knee replacemetn, stage IV CKD. dementia now stillalive in [place] 92 yo. Status: Active paternal cousins breast cancer ( late 40's) Status: Active Paternal Grandfather Comments: strokes late 60's Status: Active Paternal Grandmother Comments: lung cancer. breast cancer. 81 yo nonsmoker snuff Status: Active Social History Name Dates Details Current Work/Study Status: Unemployed not looking for work. Status: Active Exercise History: Exercises occasionally. Status: Active Living Situation: Lives with spouse. Comments: , [employer] SARA schuster [phone] Status: Active No Caffeine Use Status: Active No Drug Use Status: Active Non Drinker/No Alcohol Use Status: Active Non Smoker/No Tobacco Use Status: Active nutrition Comments: does 4-5 water a day. stopped her sweet tea. not alot sweets. veggie at lunch and dinner.2 serving of fruit Status: Active Tobacco use: Never smoker. Status: Active Tobacco Use: Never smoker. Status: Inactive Smoking Status Name Dates Details Never smoker Vital Signs Date Test Result Details :48 Temperature 97.6 f Comments: Method: Temporal Pulse 104 /min Comments: Pattern: Regular Respiration Rate 16 /min Comments: Pattern: Unlabored BP Systolic 152 mm[Hg] Comments: Patient Position: Sitting; Cuff Location: Left Arm; Cuff Size: Standard BP Diastolic 80 mm[Hg] Comments: Patient Position: Sitting; Cuff Location: Left Arm; Cuff Size: Standard Weight 168 lb Height 62 in Body Mass Index Calculated 30.73 kg/m2 Body Surface Area Calculated 1.78 m2 :58 Temperature 98.1 f Comments: Method: Temporal Pulse 87 /min Comments: Pattern: Regular Respiration Rate 16 /min Comments: Pattern: Unlabored O2 SAT 98 % Comments: Room air BP Systolic 140 mm[Hg] Comments: Patient Position: Sitting; Cuff Location: Left Arm; Cuff Size: Standard BP Diastolic 80 mm[Hg] Comments: Patient Position: Sitting; Cuff Location: Left Arm; Cuff Size: Standard Weight 168 lb Height 62 in Body Mass Index Calculated 30.73 kg/m2 Body Surface Area Calculated 1.78 m2 :58 Temperature 97.4 f Comments: Method: Temporal Pulse 100 /min Comments: Pattern: Regular Respiration Rate 20 /min Comments: Pattern: Unlabored O2 SAT 98 % Comments: Room air BP Systolic 142 mm[Hg] Comments: Patient Position: Sitting; Cuff Location: Left Arm; Cuff Size: Standard BP Diastolic 80 mm[Hg] Comments: Patient Position: Sitting; Cuff Location: Left Arm; Cuff Size: Standard Weight 167 lb Height 62 in Body Mass Index Calculated 30.54 kg/m2 Body Surface Area Calculated 1.77 m2 :32 Temperature 97.6 f Comments: Method: Temporal Pulse 62 /min Comments: Pattern: Regular Respiration Rate 20 /min Comments: Pattern: Unlabored O2 SAT 97 % Comments: Room air BP Systolic 136 mm[Hg] Comments: Patient Position: Sitting; Cuff Location: Left Arm; Cuff Size: Standard BP Diastolic 80 mm[Hg] Comments: Patient Position: Sitting; Cuff Location: Left Arm; Cuff Size: Standard Weight 177 lb Height 62 in Body Mass Index Calculated 32.37 kg/m2 Body Surface Area Calculated 1.81 m2 :24 Temperature 97.6 f Comments: Method: Temporal Pulse 74 /min Comments: Pattern: Regular Respiration Rate 18 /min Comments: Pattern: Unlabored O2 SAT 97 % Comments: Room air BP Systolic 126 mm[Hg] Comments: Patient Position: Sitting; Cuff Location: Left Arm; Cuff Size: Standard BP Diastolic 80 mm[Hg] Comments: Patient Position: Sitting; Cuff Location: Left Arm; Cuff Size: Standard Weight 177 lb Height 62 in Body Mass Index Calculated 32.37 kg/m2 Body Surface Area Calculated 1.81 m2 :45 Temperature 97.6 f Comments: Method: Temporal Pulse 84 /min Comments: Pattern: Regular Respiration Rate 22250 /min Comments: Pattern: Unlabored O2 SAT 98 % Comments: Room air BP Systolic 140 mm[Hg] Comments: Patient Position: Sitting; Cuff Location: Left Arm; Cuff Size: Standard BP Diastolic 80 mm[Hg] Comments: Patient Position: Sitting; Cuff Location: Left Arm; Cuff Size: Standard Weight 177 lb Height 62 in Body Mass Index Calculated 32.37 kg/m2 Body Surface Area Calculated 1.81 m2 :06 Temperature 97.2 f Pulse 84 /min Comments: Pattern: Regular Respiration Rate 16 /min Comments: Pattern: Unlabored O2 SAT 97 % Comments: Room air BP Systolic 136 mm[Hg] Comments: Patient Position: Sitting; Cuff Location: Left Arm; Cuff Size: Standard BP Diastolic 82 mm[Hg] Comments: Patient Position: Sitting; Cuff Location: Left Arm; Cuff Size: Standard Weight 185.125 lb Height 62 in Body Mass Index Calculated 33.86 kg/m2 Body Surface Area Calculated 1.85 m2 :31 Pulse 97 /min Comments: Pattern: Regular Respiration Rate 20 /min Comments: Pattern: Unlabored O2 SAT 97 % Comments: Room air BP Systolic 148 mm[Hg] Comments: Patient Position: Sitting; Cuff Location: Left Arm; Cuff Size: Large BP Diastolic 82 mm[Hg] Comments: Patient Position: Sitting; Cuff Location: Left Arm; Cuff Size: Large Weight 185.125 lb Height 62 in Body Mass Index Calculated 33.86 kg/m2 Body Surface Area Calculated 1.85 m2 :09 Temperature 97.6 f Comments: Method: Temporal Pulse 80 /min Comments: Pattern: Regular Respiration Rate 20 /min Comments: Pattern: Unlabored O2 SAT 97 % Comments: Room air BP Systolic 160 mm[Hg] Comments: Patient Position: Sitting; Cuff Location: Left Arm; Cuff Size: Standard BP Diastolic 100 mm[Hg] Comments: Patient Position: Sitting; Cuff Location: Left Arm; Cuff Size: Standard Weight 185 lb Height 62 in Body Mass Index Calculated 33.84 kg/m2 Body Surface Area Calculated 1.85 m2 [id number] Temperature 97.6 f Comments: Method: Temporal Pulse 86 /min Comments: Pattern: Regular Respiration Rate 18 /min Comments: Pattern: Unlabored O2 SAT 97 % Comments: Room air BP Systolic 120 mm[Hg] Comments: Patient Position: Sitting; Cuff Location: Left Arm; Cuff Size: Standard BP Diastolic 80 mm[Hg] Comments: Patient Position: Sitting; Cuff Location: Left Arm; Cuff Size: Standard Weight 178 lb Height 62 in Body Mass Index Calculated 32.56 kg/m2 Body Surface Area Calculated 1.82 m2 :36 Temperature 97.8 f Comments: Method: Oral Pulse 72 /min Comments: Pattern: Regular Respiration Rate 18 /min Comments: Pattern: Unlabored BP Systolic 122 mm[Hg] Comments: Patient Position: Sitting; Cuff Location: Left Arm; Cuff Size: Standard BP Diastolic 78 mm[Hg] Comments: Patient Position: Sitting; Cuff Location: Left Arm; Cuff Size: Standard Weight 178 lb Height 62 in Body Mass Index Calculated 32.56 kg/m2 Body Surface Area Calculated 1.82 m2 :00 Temperature 98 f Comments: Method: Oral Pulse 70 /min Comments: Pattern: Regular Respiration Rate 18 /min Comments: Pattern: Unlabored BP Systolic 122 mm[Hg] Comments: Patient Position: Sitting; Cuff Location: Left Arm; Cuff Size: Standard BP Diastolic 78 mm[Hg] Comments: Patient Position: Sitting; Cuff Location: Left Arm; Cuff Size: Standard Weight 178 lb Height 62 in Body Mass Index Calculated 32.56 kg/m2 Body Surface Area Calculated 1.82 m2 :22 Temperature 98.2 f :33 Temperature 97.8 f Comments: Method: Oral Pulse 74 /min Comments: Pattern: Regular Respiration Rate 20 /min Comments: Pattern: Unlabored BP Systolic 120 mm[Hg] Comments: Patient Position: Sitting; Cuff Location: Left Arm; Cuff Size: Standard BP Diastolic 78 mm[Hg] Comments: Patient Position: Sitting; Cuff Location: Left Arm; Cuff Size: Standard Weight 178 lb Height 62 in Body Mass Index Calculated 32.56 kg/m2 Body Surface Area Calculated 1.82 m2 :14 Temperature 97.1 f Comments: Method: Oral Pulse 80 /min Comments: Pattern: Regular Respiration Rate 17 /min BP Systolic 122 mm[Hg] Comments: Patient Position: Sitting; Cuff Location: Left Arm; Cuff Size: Standard BP Diastolic 84 mm[Hg] Comments: Patient Position: Sitting; Cuff Location: Left Arm; Cuff Size: Standard Weight 177 lb Height 62 in Body Mass Index Calculated 32.37 kg/m2 Body Surface Area Calculated 1.81 m2 :07 Comments: pt refused weight/height today Temperature 97.6 f Comments: Method: Oral Pulse 80 /min Comments: Pattern: Regular Respiration Rate 16 /min Comments: Pattern: Unlabored BP Systolic 140 mm[Hg] Comments: Patient Position: Sitting; Cuff Location: Left Arm; Cuff Size: Large BP Diastolic 82 mm[Hg] Comments: Patient Position: Sitting; Cuff Location: Left Arm; Cuff Size: Large :14 Temperature 97.2 f Comments: Method: Oral Pulse 68 /min Comments: Pattern: Regular Respiration Rate 18 /min Comments: Pattern: Unlabored BP Systolic 140 mm[Hg] Comments: Patient Position: Sitting; Cuff Location: Left Arm; Cuff Size: Standard BP Diastolic 78 mm[Hg] Comments: Patient Position: Sitting; Cuff Location: Left Arm; Cuff Size: Standard Weight 177 lb Height 62 in Body Mass Index Calculated 32.37 kg/m2 Body Surface Area Calculated 1.81 m2 :45 Temperature 97.7 f Comments: Method: Oral Pulse 68 /min Comments: Pattern: Regular Respiration Rate 18 /min Comments: Pattern: Unlabored BP Systolic 124 mm[Hg] Comments: Patient Position: Sitting; Cuff Location: Left Arm; Cuff Size: Standard BP Diastolic 80 mm[Hg] Comments: Patient Position: Sitting; Cuff Location: Left Arm; Cuff Size: Standard Weight 177 lb Height 62 in Body Mass Index Calculated 32.37 kg/m2 Body Surface Area Calculated 1.81 m2 : Temperature 97.9 f Comments: Method: Oral Pulse 64 /min Comments: Pattern: Regular Respiration Rate 18 /min Comments: Pattern: Unlabored BP Systolic 126 mm[Hg] Comments: Patient Position: Sitting; Cuff Location: Left Arm; Cuff Size: Standard BP Diastolic 86 mm[Hg] Comments: Patient Position: Sitting; Cuff Location: Left Arm; Cuff Size: Standard Weight 176 lb Height 62 in Body Mass Index Calculated 32.19 kg/m2 Body Surface Area Calculated 1.81 m2 :56 Temperature 98.2 f Comments: Method: Oral Pulse 72 /min Comments: Pattern: Regular Respiration Rate 18 /min Comments: Pattern: Unlabored BP Systolic 124 mm[Hg] Comments: Patient Position: Sitting; Cuff Location: Left Arm; Cuff Size: Standard BP Diastolic 80 mm[Hg] Comments: Patient Position: Sitting; Cuff Location: Left Arm; Cuff Size: Standard Weight 176 lb Height 62 in Body Mass Index Calculated 32.19 kg/m2 Body Surface Area Calculated 1.81 m2 :36 Temperature 98.2 f Comments: Method: Oral Pulse 72 /min Comments: Pattern: Regular Respiration Rate 18 /min Comments: Pattern: Unlabored BP Systolic 120 mm[Hg] Comments: Patient Position: Sitting; Cuff Location: Left Arm; Cuff Size: Standard BP Diastolic 80 mm[Hg] Comments: Patient Position: Sitting; Cuff Location: Left Arm; Cuff Size: Standard Weight 176 lb :21 Pulse 70 /min Comments: Pattern: Regular Respiration Rate 16 /min Comments: Pattern: Unlabored BP Systolic 134 mm[Hg] Comments: Patient Position: Sitting; Cuff Location: Left Arm; Cuff Size: Standard BP Diastolic 78 mm[Hg] Comments: Patient Position: Sitting; Cuff Location: Left Arm; Cuff Size: Standard Weight 0 lb Height 0 in Head Circumference 0.00 cm :48 Pulse 68 /min Comments: Pattern: Regular Respiration Rate 20 /min Comments: Pattern: Unlabored BP Systolic 124 mm[Hg] Comments: Patient Position: Sitting; Cuff Location: Left Arm; Cuff Size: Large BP Diastolic 80 mm[Hg] Comments: Patient Position: Sitting; Cuff Location: Left Arm; Cuff Size: Large Weight 180 lb Height 0 in Head Circumference 0.00 cm :38 Temperature 97.6 f Comments: Method: Oral Pulse 80 /min Comments: Pattern: Regular Respiration Rate 20 /min Comments: Pattern: Unlabored BP Systolic 136 mm[Hg] Comments: Patient Position: Sitting; Cuff Location: Left Arm; Cuff Size: Large BP Diastolic 84 mm[Hg] Comments: Patient Position: Sitting; Cuff Location: Left Arm; Cuff Size: Large Weight 180 lb Height 0 in Head Circumference 0.00 cm :14 Pulse 66 /min Comments: Pattern: Regular Respiration Rate 16 /min Comments: Pattern: Unlabored Weight 180 lb Height 0 in Head Circumference 0.00 cm :37 Temperature 98.1 f Comments: Method: Oral Pulse 96 /min Comments: Pattern: Regular Respiration Rate 16 /min Comments: Pattern: Unlabored BP Systolic 140 mm[Hg] Comments: Patient Position: Sitting; Cuff Location: Right Arm; Cuff Size: Standard BP Diastolic 66 mm[Hg] Comments: Patient Position: Sitting; Cuff Location: Right Arm; Cuff Size: Standard Weight 0 lb Height 0 in Head Circumference 0.00 cm :49 Pulse 80 /min Comments: Pattern: Regular Respiration Rate 17 /min Comments: Pattern: Unlabored BP Systolic 132 mm[Hg] Comments: Patient Position: Sitting; Cuff Location: Left Arm; Cuff Size: Standard BP Diastolic 78 mm[Hg] Comments: Patient Position: Sitting; Cuff Location: Left Arm; Cuff Size: Standard Weight 180 lb Height 0 in Head Circumference 0.00 cm :42 Temperature 98.2 f Comments: Method: Oral Pulse 80 /min Comments: Pattern: Regular Respiration Rate 20 /min Comments: Pattern: Unlabored O2 SAT 98 % Comments: Room air BP Systolic 140 mm[Hg] Comments: Patient Position: Sitting; Cuff Location: Left Arm; Cuff Size: Standard BP Diastolic 80 mm[Hg] Comments: Patient Position: Sitting; Cuff Location: Left Arm; Cuff Size: Standard Weight 0 lb Height 0 in Head Circumference 0.00 cm :24 Temperature 97.2 f Comments: Method: Oral Pulse 82 /min Comments: Pattern: Regular Respiration Rate 18 /min Comments: Pattern: Unlabored BP Systolic 118 mm[Hg] Comments: Patient Position: Sitting; Cuff Location: Left Arm; Cuff Size: Standard BP Diastolic 74 mm[Hg] Comments: Patient Position: Sitting; Cuff Location: Left Arm; Cuff Size: Standard Weight 180 lb Height 0 in Head Circumference 0.00 cm :07 Temperature 97 f Comments: Method: Oral Pulse 76 /min Comments: Pattern: Regular Respiration Rate 17 /min Comments: Pattern: Unlabored BP Systolic 120 mm[Hg] Comments: Patient Position: Sitting; Cuff Location: Left Arm; Cuff Size: Standard BP Diastolic 82 mm[Hg] Comments: Patient Position: Sitting; Cuff Location: Left Arm; Cuff Size: Standard Weight 180 lb Height 0 in Head Circumference 0.00 cm :32 Temperature 98.5 f Comments: Method: Oral Pulse 84 /min Comments: Pattern: Regular Respiration Rate 18 /min Comments: Pattern: Unlabored O2 SAT 97 % Comments: Room air BP Systolic 124 mm[Hg] Comments: Patient Position: Sitting; Cuff Location: Right Arm; Cuff Size: Standard BP Diastolic 84 mm[Hg] Comments: Patient Position: Sitting; Cuff Location: Right Arm; Cuff Size: Standard Weight 0 lb Height 0 in Head Circumference 0.00 cm :41 Temperature 97.6 f Comments: Method: Oral Pulse 80 /min Comments: Pattern: Regular Respiration Rate 20 /min Comments: Pattern: Unlabored BP Systolic 124 mm[Hg] Comments: Patient Position: Sitting; Cuff Location: Left Arm; Cuff Size: Standard BP Diastolic 84 mm[Hg] Comments: Patient Position: Sitting; Cuff Location: Left Arm; Cuff Size: Standard Weight 180 lb Height 0 in Head Circumference 0.00 cm 29-Ckr-[id number]:13 Temperature 98.6 f Comments: Method: Oral Pulse 76 /min Comments: Pattern: Regular Respiration Rate 20 /min Comments: Pattern: Unlabored BP Systolic 126 mm[Hg] Comments: Patient Position: Sitting; Cuff Location: Left Arm; Cuff Size: Standard BP Diastolic 78 mm[Hg] Comments: Patient Position: Sitting; Cuff Location: Left Arm; Cuff Size: Standard Weight 180 lb Height 0 in Head Circumference 0.00 cm Results Date Description Value Details :27 Carcinoembryonic Antigen Comments: [facility] (refer to report for specific site)refer to report for address and phone number CEA 1.4 ng/mL (Normal) Range: 0.0-4.7 Comments: Caroline ECLIA methodology Nonsmokers <3.9 Smokers <5.6Performed at: [facility] [id number] Director: Steve Carey PhD, Phone: [phone] 31-Ynv-736090:27 CRP Comments: [facility] [address] [facility] [place], [address] C-REACTIVE PROT 5.31 mg/L (Abnormal) Range: 0.0-3.0 Comments: C-Reactive Protein (CRP) provides useful information for thediagnosis, therapy and monitoring of inflammatory processesand associated diseases. For the evaluation of Relative Riskfor Cardiovascular Dise ase, a High Sensitivity CRP (HSCRP)should be ordered. :27 Erythrocyte Sed Rate Comments: [facility] [address] [facility] [place], [address] SED RATE 3 mm/h (Normal) Range: 0-30 :27 URINE HISTOPLASMA ANTIGEN Comments: [facility] (refer to report for specific site)refer to report for address and phone number UR Comments: TEST RESULT LIMITSHistoplasma Gal'krys Ag Ur <0.5 <0.5 ng/mLDisclaimer: This test was developed and its performance characteristics determined by [facility] Ackerman (Normal). It has not been cleared or approved by the Food and Drug Administration. TESTING PERFORMED AT [facility]. ORIGINAL REPORT ON FILE IN LAB AG CONTAINS ADDITIONAL TEST SITE INFORMATION. 4-Tio-172306:26 Metabolic Panel, Basic (44952) Comments: PATIENT NOT FASTINGPERFORMED BY: [employer] Nyyiag9634 CesarThe Frankfurt Group & HoldingsAtrium Health Union [id number] Calcium 10.0 mg/dL (Normal) Range: 8.7-10.3 Carbon Dioxide, Total 28 mmol/L (Normal) Range: 18-29 Chloride 99 mmol/L (Normal) Range: 96-106 Potassium 4.4 mmol/L (Normal) Range: 3.5-5.2 Sodium 143 mmol/L (Normal) Range: 134-144 BUN/Creatinine Ratio 28 (Normal) Range: 12-28 eGFR If Africn Am 79 mL/min/1.73 (Normal) eGFR If NonAfricn Am 69 mL/min/1.73 (Normal) Creatinine 0.85 mg/dL (Normal) Range: 0.57-1.00 BUN 24 mg/dL (Normal) Range: 8-27 Glucose 113 mg/dL (Abnormal) Range: 65-99 22-Ieb-610591:23 Metabolic Panel, Comprehensive Comments: PATIENT NOT FASTINGPERFORMED BY: [employer] Msmzpl7082 [facility]ristonesAt[facility] Union [id number] ([id number]) ALT (SGPT) 23 [iU]/L (Normal) Range: 0-32 AST (SGOT) 22 [iU]/L (Normal) Range: 0-40 Alkaline Phosphatase 89 [iU]/L (Normal) Range: 39-117 Bilirubin, Total 0.5 mg/dL (Normal) Range: 0.0-1.2 A/G Ratio 2.4 (Abnormal) Range: 1.2-2.2 Globulin, Total 2.0 g/dL (Normal) Range: 1.5-4.5 Albumin 4.7 g/dL (Normal) Range: 3.5-4.8 Protein, Total 6.7 g/dL (Normal) Range: 6.0-8.5 Calcium 9.5 mg/dL (Normal) Range: 8.7-10.3 Carbon Dioxide, Total 25 mmol/L (Normal) Range: 18-29 Chloride 101 mmol/L (Normal) Range: 96-106 Potassium 3.9 mmol/L (Normal) Range: 3.5-5.2 Sodium 144 mmol/L (Normal) Range: 134-144 BUN/Creatinine Ratio 28 (Normal) Range: 12-28 eGFR If Africn Am 101 mL/min/1.73 (Normal) eGFR If NonAfricn Am 88 mL/min/1.73 (Normal) Creatinine 0.68 mg/dL (Normal) Range: 0.57-1.00 BUN 19 mg/dL (Normal) Range: 8-27 Glucose 94 mg/dL (Normal) Range: 65-99 25-Mxg-141337:23 CBC WITH MANUAL DIFF Comments: PATIENT NOT FASTINGPERFORMED BY: [facility] Ipavxr0401 [facility] [id number] Information: NURSE DRAW; fu DB 6-8 ([id number]) Immature Grans (Abs) 0.0 {x10E3/uL} (Normal) Range: 0.0-0.1 Immature Granulocytes 0 % (Normal) Baso (Absolute) 0.0 {x10E3/uL} (Normal) Range: 0.0-0.2 Eos (Absolute) 0.0 {x10E3/uL} (Normal) Range: 0.0-0.4 Monocytes(Absolute) 0.2 {x10E3/uL} (Normal) Range: 0.1-0.9 Lymphs (Absolute) 1.2 {x10E3/uL} (Normal) Range: 0.7-3.1 Neutrophils (Absolute) 1.8 {x10E3/uL} (Normal) Range: 1.4-7.0 Basos 0 % (Normal) Eos 1 % (Normal) Monocytes 7 % (Normal) Lymphs 36 % (Normal) Neutrophils 56 % (Normal) Platelets 182 {x10E3/uL} (Normal) Range: 150-379 RDW 13.1 % (Normal) Range: 12.3-15.4 MCHC 35.2 g/dL (Normal) Range: 31.5-35.7 MCH 33.8 pg (Abnormal) Range: 26.6-33.0 MCV 96 fL (Normal) Range: 79-97 Hematocrit 42.0 % (Normal) Range: 34.0-46.6 Hemoglobin 14.8 g/dL (Normal) Range: 11.1-15.9 RBC 4.38 {x10E6/uL} (Normal) Range: 3.77-5.28 WBC 3.2 {x10E3/uL} (Abnormal) Range: 3.4-10.8 52-Hlb-929829:23 MICROALBUMIN: CREATININE RATIO Comments: PATIENT NOT FASTINGPERFORMED BY: [employer] [id number] [facility] [id number] ([id number]) AND (23720) Alb/Creat Ratio 5.3 {mg/g_creat} (Normal) Range: 0.0-30.0 Albumin, Urine 3.7 ug/mL (Normal) Creatinine, Urine 70.0 mg/dL (Normal) 82-Ogr-097318:23 URINALYSIS (74187) Comments: PATIENT NOT FASTINGPERFORMED BY: HII TechnologiesGallup Indian Medical CenterGjbqef1206 [facility] [id number] Microscopic Examination MICNIP (Normal) Comments: Microscopic not indicated and not performed. Nitrite, Urine Negative (Normal) Urobilinogen,Semi-Qn 0.2 mg/dL (Normal) Range: 0.2-1.0 Bilirubin Negative (Normal) Occult Blood Negative (Normal) Ketones Negative (Normal) Glucose Negative (Normal) Protein Negative (Normal) WBC Esterase Negative (Normal) Appearance Clear (Normal) Urine-Color Yellow (Normal) pH 6.5 (Normal) Range: 5.0-7.5 Specific Brutus 1.018 (Normal) Range: 1.005-1.030 20-Ssp-749231:30 Culture, R/O Strep A Comments: [facility] [address] [place], [place], [address] CUSTREPA See Note (Normal) Comments: AVERY CultureNo Group A Beta Streptococcus isolated. * This cultures intended use is to screen for Beta Streptococcus A only. All other pathogens and potential pathogens will not be screened for or rep orted. If a complete workup of all potential pathogens is indicated an order for a routine throat culture is required. 6-Lvi-393937:10 ANTINUCLEAR ANTIBODIES DIRECT Comments: [facility] (refer to report for specific site)refer to report for address and phone number MILTON-DIRECT Negative (Normal) Comments: Performed at: [facility] [employer] [id number] Director: Steve Carey PhD, Phone: [phone] 5-Axv-506502:10 Ferritin Comments: [facility] [address] [place], [address] FERRITIN 251 ng/mL (Normal) Range: 8-252 04-Huj-919380:40 Methymalonic Acid, Serum Comments: today; PATIENT NOT FASTINGPERFORMED BY: [employer] [id number] BY: Artifact TechnologiesRiverview Medical CenterUcqqwn8528[address] [place] [address] [id number] ([id number]) Methylmalonic Acid, Serum 198 nmol/L (Normal) Range: 0-378 37-Jrq-677989:40 Vitamin B-12 Comments: today; PATIENT NOT FASTINGPERFORMED BY: [employer] [address] [id number] BY: Artifact TechnologiesRiverview Medical CenterBvuoug939[address] [place] [address] [id number] (cyanocobalamin) (54976) Vitamin B12 353 pg/mL (Normal) Range: 211-946 20-Ery-453773:23 HEPATITIS C ANTIBODY Comments: PATIENT NOT FASTINGPERFORMED BY: Artifact TechnologiesRiverview Medical CenterAukmpv9909[address] [place] [address] [id number] Information: NURSE DRAW (43507) Hep C Virus Ab <0.1 {s/co_ratio} (Normal) Range: 0.0-0.9 Comments: Negative: < 0.8 Indeterminate: 0.8 - 0.9 Positive: > 0.9 . The CDC recommends that a positive HCV antibody result be followed up with a HCV Nucleic Acid Amplification test (603070). :57 Alanine Aminotransferas (SGPT) Comments: DR.CHARLICK VERDIN.[facility] [address] [place], [address] ALT 32 U/L (Normal) Range: 12-78 :57 ALB/GLOB Ratio Comments: DR.CHARLICK VERDIN.[facility] [address] [place], [address] A/G 1.2 {RATIO} (Normal) Range: 0.9-2.4 :57 Albumin, Serum Comments: DR.CHARLICK VERDIN.[facility] [address] [place], [address] ALB 3.7 g/dL (Normal) Range: 3.4-5.0 :57 Alkaline Phosphatase Comments: DR.CHARLICK VERDIN.[facility] [address] [place], [address] ALK P 93 U/L (Normal) Range: 50-136 :57 AST(SGOT) Comments: DR.CHARLICK VERDIN.[facility] [address] [place], [address] AST 22 U/L (Normal) Range: 15-37 :57 Basic Metabolic Profile (BMP) Comments: DR.CHARLICK VERDIN.[facility] [address] [place], [address] GAP 8 (Normal) Range: 5-15 CO2 26.0 mmol/L (Normal) Range: 21.0-32.0 CL 105 mmol/L (Normal) Range: 98-107 K 3.8 mmol/L (Normal) Range: 3.5-5.1 NA 139 mmol/L (Normal) Range: 136-145 CA 8.9 mg/dL (Normal) Range: 8.5-10.1 BUN/CRE 26.1 {RATIO} (Abnormal) Range: 10-20 EST GFR - AA 108 mL/min (Normal) Comments: GFR Calc EST GFR 89 mL/min (Normal) Comments: Non- GFR Calc CREAT,SERUM 0.69 mg/dL (Normal) Range: 0.55-1.20 Comments: The validity of the calculated GFR AND GFRAA in patients over70 years has not been determined. Clinical correlation isessential. BUN 18 mg/dL (Normal) Range: 7-18 GLU 85 mg/dL (Normal) Range: 70-110 :57 Bilirubin, Total Comments: DR.CHARLICK VERDIN.[facility] [address] [place] [address], [address] T BILI 0.50 mg/dL (Normal) Range: 0.20-1.00 :57 Globulin Comments: DR.CHARLICK VERDIN.[facility] [address]qcji[address] [place], [place], [id number] GLOB 3.1 g/dL (Normal) Range: 2.3-3.5 :57 Lipid Profile Comments: DR.CHARLICK VERDIN.[facility] [address] [place], [place], [phone]) VLDL 17 mg/dL (Normal) Range: 5-40 LDL 117 mg/dL (Normal) Range: 0-130 HDL 57 mg/dL (Normal) Comments: Reference Range HDL <40 mg/dL Low HDL Cholesterol HDL >or= 60 mg/dL High HDL Cholesterol TRIG 83 mg/dL (Normal) Comments: Serum Triglycerides Reference Interval Normal <150 mg/dL Borderline high 150 - 199 mg/dL High 200 - 499 mg/dL Very High > or = 500 mg/dL CHOL 191 mg/dL (Normal) Comments: <200 mg/dL Desirable 200-240 mg/dL Borderline >240 mg/dL High Risk :57 Protein, Total Comments: DR.CHARLICK VERDIN.[facility] [address] [place], [place], [id number] T PROT 6.8 g/dL (Normal) Range: 6.4-8.2 21-Ceo-95981:57 Thyroid Stim Hormone (TSH) Comments: DR.CHARLICK VERDIN.[facility] [address] [place], [address] TSH 1.36 {uIU/mL} (Normal) Range: 0.358-3.74 90-Anr-333280:40 Rapid Flu (79232 x 2) Comments: neg Influenza A Ag negative (Normal) :47 CBC W/Diff, Automated Comments: [facility] [address] [place], [place], [phone] ; [address] Absolute Lymph 1.25 {X10_3/ul} (Normal) Range: 0.83-4.51 Absolute Neut 1.9 {X10_3/uL} (Abnormal) Range: 2.0-7.7 IM GRAN % 0.000 % (Normal) Range: 0.0-0.9 Comments: IG% - Immature Granulocytes (promyelocytes, myelocytes andmetamyelocytes) > 1% indicates that a LEFT SHIFT is Present. BASO% 0.6 % (Normal) Range: 0-1 EO% 2.0 % (Normal) Range: 0-5 MONO% 8.0 % (Normal) Range: 0-10 LY% 35.8 % (Normal) Range: 19-41 NEUT% 53.6 % (Normal) Range: 47-70 MPV 10.5 fL (Normal) Range: 6.2-12.0 PLT 184 K/mm3 (Normal) Range: 150-450 RDW SD 43.8 fL (Normal) Range: 35.1-43.9 RDW CV 12.1 % (Normal) Range: 11.6-14.6 MCHC 34.9 {g/gl} (Normal) Range: 32-36 MCH 34.4 pg (Abnormal) Range: 27.0-32.0 MCV 98.6 fL (Normal) Range: 81-99 HCT 43.6 % (Normal) Range: 37-47 HGB 15.2 g/dL (Abnormal) Range: 12.0-15.0 RBC 4.42 {M/mm3} (Normal) Range: 4.2-5.4 WBC 3.5 K/mm3 (Abnormal) Range: 4.4-11.0 06-Spr-01763:47 Comprehensive Metabolic Profil Comments: [facility] [address] [place], [place], [phone] GAP 9 (Normal) Range: 5-15 CO2 25.0 mmol/L (Normal) Range: 21.0-32.0 CL 106 mmol/L (Normal) Range: 98-107 K 3.9 mmol/L (Normal) Range: 3.5-5.1 NA 140 mmol/L (Normal) Range: 136-145 T BILI 0.40 mg/dL (Normal) Range: 0.20-1.00 ALT 57 U/L (Normal) Range: 12-78 ALK P 101 U/L (Normal) Range: 50-136 AST 32 U/L (Normal) Range: 15-37 CA 8.5 mg/dL (Normal) Range: 8.5-10.1 A/G 1.2 {RATIO} (Normal) Range: 0.9-2.4 GLOB 3.1 g/dL (Normal) Range: 2.3-3.5 ALB 3.7 g/dL (Normal) Range: 3.4-5.0 T PROT 6.8 g/dL (Normal) Range: 6.4-8.2 BUN/CRE 26.2 {RATIO} (Abnormal) Range: 10-20 EST GFR - AA 109 mL/min (Normal) Comments: GFR Calc EST GFR 90 mL/min (Normal) Comments: Non- GFR Calc CREAT,SERUM 0.69 mg/dL (Normal) Range: 0.55-1.20 Comments: The validity of the calculated GFR AND GFRAA in patients over70 years has not been determined. Clinical correlation isessential. BUN 18 mg/dL (Normal) Range: 7-18 GLU 95 mg/dL (Normal) Range: 70-110 :47 Lipid Profile Comments: [facility] [address] [place], [phone] VLDL 28 mg/dL (Normal) Range: 5-40 LDL 109 mg/dL (Normal) Range: 0-130 HDL 45 mg/dL (Normal) Comments: Reference Range HDL <40 mg/dL Low HDL Cholesterol HDL >or= 60 mg/dL High HDL Cholesterol TRIG 141 mg/dL (Normal) Comments: Serum Triglycerides Reference Interval Normal <150 mg/dL Borderline high 150 - 199 mg/dL High 200 - 499 mg/dL Very High > or = 500 mg/dL CHOL 182 mg/dL (Normal) Comments: <200 mg/dL Desirable 200-240 mg/dL Borderline >240 mg/dL High Risk :47 Thyroid Stim Hormone (TSH) Comments: [facility] [address] [place], [id number] TSH 1.13 {uIU/mL} (Normal) Range: 0.358-3.74 :47 Vitamin D,25 Hydroxy Comments: [facility] [address] [place], [id number] Vitamin D 25-OH 41.2 ng/mL (Normal) Comments: Vitamin D 25(OH) Status Range Deficiency <20 ng/mL (50nmol/L) Insuffciency 20 - 30 ng/mL (50 - 75 nmol/L) Sufficiency 30 - 100 ng/mL (75 - 250 nmol/L) Toxicity >100 ng/mL (>250 nmol/L) 9-Vho-242909:53 URINALYSIS (97634) Comments: PATIENT NOT FASTINGPERFORMED BY: [facility]CoRiverview Medical CenterPlftsd5422 [facility] [id number] Information: [id number] Microscopic Examination MICNIP (Normal) Comments: Microscopic not indicated and not performed. Nitrite, Urine Negative (Normal) Urobilinogen,Semi-Qn 0.2 mg/dL (Normal) Range: 0.0-1.9 Bilirubin Negative (Normal) Occult Blood Negative (Normal) Ketones Negative (Normal) Glucose Negative (Normal) Protein Negative (Normal) WBC Esterase Negative (Normal) Appearance Clear (Normal) Urine-Color Yellow (Normal) pH 7.5 (Normal) Range: 5.0-7.5 Specific Brutus 1.015 (Normal) Range: 1.005-1.030 0-Kjt-990301:53 URINE LIBBY CULTURE-IDENTIFICATN Comments: PATIENT NOT FASTINGPERFORMED BY: [facility] [id number] [facility] [id number] ([id number]) Result 1 NG36 (Normal) Comments: No growth in 36 - 48 hours. Urine Culture,Comprehensive Final report (Normal) 12-For-96741:22 CBC W/Diff, Automated Comments: Test performed at:[facility] [address] [place] [address] Absolute Lymph 1.45 {X10_3/ul} (Normal) Range: 0.83-4.51 Absolute Neut 2.8 {X10_3/uL} (Normal) Range: 2.0-7.7 IM GRAN % 0.000 % (Normal) Range: 0.0-0.9 Comments: IG% - Immature Granulocytes (promyelocytes, myelocytes andmetamyelocytes) > 1% indicates that a LEFT SHIFT is Present. BASO% 0.4 % (Normal) Range: 0-1 EO% 1.1 % (Normal) Range: 0-5 MONO% 8.1 % (Normal) Range: 0-10 LY% 30.7 % (Normal) Range: 19-41 NEUT% 59.7 % (Normal) Range: 47-70 MPV 10.4 fL (Normal) Range: 6.2-12.0 PLT 181 K/mm3 (Normal) Range: 150-450 RDW SD 40.5 fL (Normal) Range: 35.1-43.9 RDW CV 12.0 % (Normal) Range: 11.6-14.6 MCHC 35.4 {g/gl} (Normal) Range: 32-36 MCH 33.9 pg (Abnormal) Range: 27.0-32.0 MCV 95.9 fL (Normal) Range: 81-99 HCT 42.1 % (Normal) Range: 37-47 HGB 14.9 g/dL (Normal) Range: 12.0-15.0 RBC 4.39 {M/mm3} (Normal) Range: 4.2-5.4 WBC 4.7 K/mm3 (Normal) Range: 4.4-11.0 :22 Comprehensive Metabolic Profil Comments: Test performed at:[facility] [address] [place] [address] GAP 6 (Normal) Range: 5-15 CO2 28.0 mmol/L (Normal) Range: 21.0-32.0 CL 104 mmol/L (Normal) Range: 98-107 K 3.6 mmol/L (Normal) Range: 3.5-5.1 NA 138 mmol/L (Normal) Range: 136-145 T BILI 0.50 mg/dL (Normal) Range: 0.00-4.00 ALT 35 U/L (Normal) Range: 12-78 ALK P 106 U/L (Normal) Range: 50-136 AST 18 U/L (Normal) Range: 15-37 CA 8.6 mg/dL (Normal) Range: 8.5-10.1 A/G 1.1 {RATIO} (Normal) Range: 0.9-2.4 GLOB 3.3 g/dL (Normal) Range: 2.7-4.2 ALB 3.6 g/dL (Normal) Range: 3.4-5.0 T PROT 6.9 g/dL (Normal) Range: 6.4-8.2 BUN/CRE 22.5 {RATIO} (Abnormal) Range: 10-20 EST GFR - AA 92 mL/min (Normal) EST GFR 76 mL/min (Normal) CREAT,SERUM 0.8 mg/dL (Normal) Range: 0.6-1.0 BUN 18 mg/dL (Normal) Range: 7-18 GLU 100 mg/dL (Normal) Range: 70-110 :22 Lipid Profile Comments: Test performed at:[facility] [address] [place] [address] VLDL 27 mg/dL (Normal) Range: 5-40 LDL 128 mg/dL (Normal) Range: 0-130 HDL 47 mg/dL (Normal) Comments: Reference Range HDL <40 mg/dL Low HDL Cholesterol HDL >or= 60 mg/dL High HDL Cholesterol TRIG 134 mg/dL (Normal) Range: 0-199 Comments: Serum Triglycerides Reference Interval Normal <150 mg/dL Borderline high 150 - 199 mg/dL High 200 - 499 mg/dL Very High > or = 500 mg/dL CHOL 202 mg/dL (Abnormal) Comments: <200 mg/dL Desirable 200-240 mg/dL Borderline >240 mg/dL High Risk :22 Microalb:Creat Ratio,Random UR Comments: Test performed at:[facility] [address] [place] [address] MALB:CREAT 7.1 {mg/g_CRE} (Normal) MICROALBUMIN,UR 18.2 mg/L (Normal) UR CREAT 256.0 mg/dL (Normal) :22 Urinalysis, Complete Comments: How was Urine Obtained? CLEAN CATCHTest performed at:[facility] [address] [facility] [place] [address] CA OX CRYSTAL 1+ {/hpf} (Normal) MUCUS, URINE 0 SEEN {/hpf} (Normal) BACTERIA 2+ {/hpf} (Normal) SQUAM EPI 5-10 SEEN {/hpf} (Normal) Range: 5-10 RBC-UA 0-5 SEEN {/hpf} (Normal) Range: 0-5 WBC 0-5 SEEN {/hpf} (Normal) Range: 0-5 LEUK ESTERASE 25 /ul (Abnormal) OCCULT BLOOD-UR 25 /ul (Abnormal) NITRITE UR Negative (Normal) UROBILI 1 mg/dL (Abnormal) PROT DIPSTX Negative mg/dL (Normal) pH UR 6.0 (Normal) Range: 5.0 - 8.0 SP.GR. DIPSTX 1.025 (Normal) Range: 1.002-1.030 KETONE UR Negative mg/dL (Normal) BILIRUBIN URINE Negative mg/dL (Normal) GLUCOSE, UR Normal mg/dL (Normal) CLARITY Sl. Cloudy (Normal) COLOR Yellow (Normal) :22 Vitamin D,25 Hydroxy Comments: Test performed at:[facility] [address] [place] [address] Vitamin D 25-OH 44.6 ng/mL (Normal) Comments: Vitamin D 25(OH) Status Range Deficiency <20 ng/mL (50nmol/L) Insuffciency 20 - 30 ng/mL (50 - 75 nmol/L) Sufficiency 30 - 100 ng/mL (75 - 250 nmol/L) Toxicity >100 ng/mL (>250 nmol/L) :55 CBCD ANC 2.4 {X10_3/uL} (Normal) Range: 2.0-7.7 B% 0.2 % (Normal) Range: 0-1 IG% 0.200 % (Normal) Range: 0.0-0.9 Comments: IG% - Immature Granulocytes (promyelocytes, myelocytes andmetamyelocytes) > 1% indicates that a LEFT SHIFT is Present. E% 1.1 % (Normal) Range: 0-5 M% 8.3 % (Normal) Range: 0-10 L% 36.0 % (Normal) Range: 19-41 N% 54.2 % (Normal) Range: 47-70 MPV 10.6 fL (Normal) Range: 6.2-12.0 PLT 182 K/mm3 (Normal) Range: 150-450 RDWSD 41.5 fL (Normal) Range: 35.1-43.9 RDWCV 12.1 % (Normal) Range: 11.6-14.6 MCHC 35.3 {g/gl} (Normal) Range: 32-36 MCH 33.6 pg (Abnormal) Range: 27.0-32.0 HCT 41.4 % (Normal) Range: 37-47 MCV 95.4 fL (Normal) Range: 81-99 HGB 14.6 g/dL (Normal) Range: 12.0-15.0 RBC 4.34 {M/mm3} (Normal) Range: 4.2-5.4 WBC 4.4 K/mm3 (Normal) Range: 4.4-11.0 :55 CMP GAP 8 (Normal) Range: 5-15 CL 104 mmol/L (Normal) Range: 98-107 CO2 29.0 mmol/L (Normal) Range: 21.0-32.0 K 3.8 mmol/L (Normal) Range: 3.5-5.1 NA 141 mmol/L (Normal) Range: 136-145 BIT 0.40 mg/dL (Normal) Range: 0.00-1.00 ALT 39 U/L (Normal) Range: 12-78 ALK 109 U/L (Normal) Range: 50-136 AST 24 U/L (Normal) Range: 15-37 CA 9.2 mg/dL (Normal) Range: 8.5-10.1 AG 1.7 {RATIO} (Normal) Range: 0.9-2.4 GLOB 2.5 g/dL (Abnormal) Range: 2.7-4.2 ALB 4.3 g/dL (Normal) Range: 3.4-5.0 TPROT 6.8 g/dL (Normal) Range: 6.4-8.2 BC 28.6 {RATIO} (Abnormal) Range: 10-20 GFRAA 108 mL/min (Normal) GFR 89 mL/min (Normal) CREAT 0.7 mg/dL (Normal) Range: 0.6-1.0 BUN 20 mg/dL (Abnormal) Range: 7-18 GLU 94 mg/dL (Normal) Range: 70-110 41-Pjf-[id number]:55 UA Comments: How was Urine Obtained? CLEAN CATCH ANA 100 /ul (Abnormal) UOB 10 /ul (Abnormal) PRATEEK Negative (Normal) UROBU Normal mg/dL (Normal) VASQUEZ 6.0 (Normal) Range: 5.0 - 8.0 uPROTU Negative mg/dL (Normal) SGU 1.020 (Normal) Range: 1.002-1.030 KETU Negative mg/dL (Normal) BILIU Negative mg/dL (Normal) GLUR Normal mg/dL (Normal) UCLAR Clear (Normal) UCOL Yellow (Normal) 20-Jqn-186791:23 Microscopic Examination Comments: PATIENT WAS FASTINGPERFORMED BY: [facility] [id number] [facility] [id number] Bacteria None seen (Normal) Mucus Threads Present (Normal) Epithelial Cells (non renal) 0-10 {/hpf} (Normal) Range: 0 - 10 RBC None seen {/hpf} (Normal) Range: 0 - 3 WBC 0-5 {/hpf} (Normal) Range: 0 - 5 21-Qcl-319748:51 BILAT SCRN DIGITAL & CAD Radiology Report See Note (Normal) Comments: MAMMOGRAPHY - BILATERAL SCREENING REASON FOR EXAM: Female, 66 years old. Routine annual screeningexamination. PERTINENT HISTORY: Grandmother with breast cancer. TECHNIQUE: Digital exa mination. M ediolateral oblique (MLO) andcraniocaudad (CC) views of both breasts were obtained. CAD: CAD wasperformed on this study. COMPARISON: Comparison is made with prior studies dated October 04 Dece mb2009. FINDINGS:The breast composition is composed of scattered fibroglandular densities. There are no dominant masses or suspicious calcifications. No other significant abnormalities are identif ied. There has been nosignificant change since the prior study. IMPRESSION:Stable bilateral screening mammogram. Yearly follow-up recommended. (A) ASSESSMENT CATEGORY:BIRADS Category 2: Benign find ing(s). A letter regarding these resultswill be sent to the patient by the facility within 30 days. Approximately 10% of breast cancers are not detected by mammography. Anormal mammogram should not de lay biopsy of a clinically suspiciousabnormality. Signed:Mikey Pierre M.D.October 09, 2012 at 12:29:05 PM [phone] Signed GP/GP If you are the referring physician and would like to consult with theradiologist who provided this interpretation, please contact Santos Chatterjee at [phone]. If this radiologist is unavailable, youwill be directed to another radiologi st to assist. If you are a patient with a question regarding this report, pleasecontactyour referring physician directly. Professional Interpretation Provided By: [email or web address], Phone ,Fax These documents contain legally protected and confidential healthinformation intended only for the use of the individual or entity namedabove. If you are not the intended recipient, you are hereby notifiedthatany disclosure, copying, distribution, or other use of these documents isstrictly prohibited. If you have received this information in error,pleasenotify the sender immediately and ar range for the return or destructionofthese documents. Dictated on 10/09/12 1152 by Gabby TERRY,Nishascribed on 10/09/12 1234 by ITS IMPORTSign by Mikey Pierre MD on 10/09/12 1235 Si gn by: Mikey Pierre MD [id number]-Vux-[id number]:23 URINALYSIS, W/ MICRO ([id number]) Comments: PATIENT WAS FASTINGPERFORMED BY: [employer] [id number] [facility] [id number] Microscopic Examination See below: (Normal) Microscopic Examination MICRON (Normal) Comments: Microscopic follows if indicated. Nitrite, Urine Negative (Normal) Urobilinogen,Semi-Qn 1.0 mg/dL (Normal) Range: 0.0-1.9 Bilirubin Negative (Normal) Occult Blood Negative (Normal) Ketones Negative (Normal) Glucose Negative (Normal) Protein Negative (Normal) WBC Esterase Negative (Normal) Appearance Clear (Normal) Urine-Color Yellow (Normal) pH 7.5 (Normal) Range: 5.0-7.5 Specific Brutus 1.021 (Normal) Range: 1.005-1.030 27-Mxc-648381:23 MICROALBUMIN: CREATININE RATIO Comments: PATIENT WAS FASTINGPERFORMED BY: [employer] [id number] [facility] [id number] ([id number]) AND ([id number]) Microalb/Creat Ratio 3.0 {mg/g_creat} (Normal) Range: 0.0-30.0 Microalbumin, Urine 2.5 ug/mL (Normal) Range: 0.0-17.0 Creatinine, Urine 82.1 mg/dL (Normal) Range: 15.0-278.0 93-Hpn-879353:23 METABOLIC PANEL, COMPREHENSIVE Comments: PATIENT WAS FASTINGPERFORMED BY: [employer] [id number] [facility] [id number] ([id number]) ALT (SGPT) 29 [iU]/L (Normal) Range: 0-32 AST (SGOT) 24 [iU]/L (Normal) Range: 0-40 Alkaline Phosphatase, S 87 [iU]/L (Normal) Range: 25-165 Bilirubin, Total 0.5 mg/dL (Normal) Range: 0.0-1.2 A/G Ratio 2.2 (Normal) Range: 1.1-2.5 Globulin, Total 2.1 g/dL (Normal) Range: 1.5-4.5 Albumin, Serum 4.6 g/dL (Normal) Range: 3.6-4.8 Protein, Total, Serum 6.7 g/dL (Normal) Range: 6.0-8.5 Calcium, Serum 9.4 mg/dL (Normal) Range: 8.6-10.2 Carbon Dioxide, Total 23 mmol/L (Normal) Range: 20-32 Chloride, Serum 101 mmol/L (Normal) Range: 97-108 Potassium, Serum 4.3 mmol/L (Normal) Range: 3.5-5.2 Sodium, Serum 140 mmol/L (Normal) Range: 134-144 BUN/Creatinine Ratio 35 (Abnormal) Range: 11-26 eGFR If Africn Am 105 mL/min/1.73 (Normal) eGFR If NonAfricn Am 91 mL/min/1.73 (Normal) Creatinine, Serum 0.69 mg/dL (Normal) Range: 0.57-1.00 BUN 24 mg/dL (Normal) Range: 8-27 Glucose, Serum 93 mg/dL (Normal) Range: 65-99 91-Lng-199031:23 LIPID PANEL ([id number]) Comments: PATIENT WAS FASTINGPERFORMED BY: [employer] [facility] [id number] LDL/HDL Ratio 3.0 {ratio_units} (Normal) Range: 0.0-3.2 LDL Cholesterol Calc 145 mg/dL (Abnormal) Range: 0-99 HDL Cholesterol 49 mg/dL (Normal) Comments: According to ATP-III Guidelines, HDL-C >59 mg/dL is considered anegative risk factor for CHD. VLDL Cholesterol Brayden 22 mg/dL (Normal) Range: 5-40 Triglycerides 110 mg/dL (Normal) Range: 0-149 Cholesterol, Total 216 mg/dL (Abnormal) Range: 100-199 54-Vyc-242031:23 CBC WITH MANUAL DIFF Comments: PATIENT WAS FASTINGPERFORMED BY: [employer] [id number] Information: [id number] ([id number]) Immature Grans (Abs) 0.0 {x10E3/uL} (Normal) Range: 0.0-0.1 Immature Granulocytes 0 % (Normal) Range: 0-2 Baso (Absolute) 0.0 {x10E3/uL} (Normal) Range: 0.0-0.2 Eos (Absolute) 0.1 {x10E3/uL} (Normal) Range: 0.0-0.4 Monocytes(Absolute) 0.3 {x10E3/uL} (Normal) Range: 0.1-1.0 Lymphs (Absolute) 1.4 {x10E3/uL} (Normal) Range: 0.7-4.5 Neutrophils (Absolute) 1.8 {x10E3/uL} (Normal) Range: 1.8-7.8 Basos 1 % (Normal) Range: 0-3 Eos 1 % (Normal) Range: 0-7 Monocytes 8 % (Normal) Range: 4-13 Lymphs 39 % (Normal) Range: 14-46 Neutrophils 51 % (Normal) Range: 40-74 Platelets 186 {x10E3/uL} (Normal) Range: 140-415 RDW 12.7 % (Normal) Range: 12.3-15.4 MCHC 35.5 g/dL (Normal) Range: 31.5-35.7 MCH 34.4 pg (Abnormal) Range: 26.6-33.0 MCV 97 fL (Normal) Range: 79-97 Hematocrit 41.7 % (Normal) Range: 34.0-46.6 Hemoglobin 14.8 g/dL (Normal) Range: 11.1-15.9 RBC 4.30 {x10E6/uL} (Normal) Range: 3.77-5.28 WBC 3.6 {x10E3/uL} (Abnormal) Range: 4.0-10.5 1-Yfe-931372:23 KNEE,4 OR MORE VIEWS Radiology Report See Note (Normal) Comments: PROCEDURES: X-RAY - LEFT KNEE REASON FOR EXAM: Female, 66 years old. Anterior and medial pain. TECHNIQUE: Four views of the knee. COMPARISON: None. FINDINGS:There is mild degenerati ve arthrosis of the medial femorotibialcompartment. Normal lateral femorotibial compartment. Normalpatellofemoral articulation. Normal visualized distal femur. Small osteophytes at the tibial spines.There also a ppears to be an osteophyte extending posteriorly andsuperiorlyfrom the tibial plateau on the lateral view. Normal proximal tibiofibulararticulation. IMPRESSION:Degenerative arthrosis. To consult with a radiologist regarding this report, please call our [id number] line @ Dictated on 12/30/11 1234 by WALTER KAY MDTranscribed on 12/30/115 by ITS IMPORTSign by WALTER KAY MD on 12/30/111655 Sign by: WALTER KAY MD 86-Yik-542424:59 Microscopic Examination Comments: PATIENT WAS FASTINGPERFORMED BY: [employer] [place] [id number] Bacteria None seen (Normal) Mucus Threads Present (Normal) Epithelial Cells (non renal) 0-10 {/hpf} (Normal) Range: 0 - 10 RBC 0-3 {/hpf} (Normal) Range: 0 - 3 WBC 0-5 {/hpf} (Normal) Range: 0 - 5 21-Ysl-578446:59 URINALYSIS, W/ MICRO ([id number]) Comments: PATIENT WAS FASTINGPERFORMED BY: [employer] [place] [id number] Microscopic Examination See below: (Normal) Microscopic Examination MICRON (Normal) Comments: Microscopic follows if indicated. Nitrite, Urine Negative (Normal) Urobilinogen,Semi-Qn 0.2 mg/dL (Normal) Range: 0.0-1.9 Bilirubin Negative (Normal) Occult Blood Negative (Normal) Ketones Negative (Normal) Glucose Negative (Normal) Protein Negative (Normal) WBC Esterase Negative (Normal) Appearance Clear (Normal) Urine-Color Yellow (Normal) pH 6.0 (Normal) Range: 5.0-7.5 Specific Brutus 1.018 (Normal) Range: 1.005-1.030 09-Tjp-103612:59 MICROALBUMIN: CREATININE RATIO Comments: PATIENT WAS FASTINGPERFORMED BY: [employer] [place] [id number] ([id number]) AND ([id number]) Microalb/Creat Ratio 4.3 {mg/g_creat} (Normal) Range: 0.0-30.0 Creatinine, Urine 98.4 mg/dL (Normal) Range: 15.0-278.0 Microalbumin, Urine 4.2 ug/mL (Normal) Range: 0.0-17.0 85-Ftk-451093:59 METABOLIC PANEL, COMPREHENSIVE Comments: PATIENT WAS FASTINGPERFORMED BY: [facility] [id number] ([id number]) ALT (SGPT) 29 [iU]/L (Normal) Range: 0-40 AST (SGOT) 25 [iU]/L (Normal) Range: 0-40 Alkaline Phosphatase, S 90 [iU]/L (Normal) Range: 25-165 Bilirubin, Total 0.5 mg/dL (Normal) Range: 0.0-1.2 A/G Ratio 2.5 (Normal) Range: 1.1-2.5 Globulin, Total 2.0 g/dL (Normal) Range: 1.5-4.5 Albumin, Serum 4.9 g/dL (Abnormal) Range: 3.6-4.8 Protein, Total, Serum 6.9 g/dL (Normal) Range: 6.0-8.5 Calcium, Serum 9.4 mg/dL (Normal) Range: 8.6-10.2 Carbon Dioxide, Total 22 mmol/L (Normal) Range: 20-32 Chloride, Serum 104 mmol/L (Normal) Range: 97-108 Potassium, Serum 4.1 mmol/L (Normal) Range: 3.5-5.2 Sodium, Serum 140 mmol/L (Normal) Range: 134-144 Comments: Please note reference interval change BUN/Creatinine Ratio 31 (Abnormal) Range: 11-26 eGFR If Africn Am 108 mL/min/1.73 (Normal) Comments: Note: A persistent eGFR <60 mL/min/1.73 m2 (3 months or more) mayindicate chronic kidney disease. An eGFR >59 mL/min/1.73 m2 with anelevated urine protein also may indicate chronic kidney disease.Calculated using CKD-EPI formula. eGFR If NonAfricn Am 93 mL/min/1.73 (Normal) Creatinine, Serum 0.65 mg/dL (Normal) Range: 0.57-1.00 BUN 20 mg/dL (Normal) Range: 8-27 Glucose, Serum 99 mg/dL (Normal) Range: 65-99 :59 LIPID PANEL ([id number]) Comments: PATIENT WAS FASTINGPERFORMED BY: [employer] [facility] [id number] LDL/HDL Ratio 3.0 {ratio_units} (Normal) Range: 0.0-3.2 LDL Cholesterol Calc 146 mg/dL (Abnormal) Range: 0-99 VLDL Cholesterol Brayden 20 mg/dL (Normal) Range: 5-40 HDL Cholesterol 48 mg/dL (Normal) Comments: According to ATP-III Guidelines, HDL-C >59 mg/dL is considered anegative risk factor for CHD. Cholesterol, Total 214 mg/dL (Abnormal) Range: 100-199 Triglycerides 102 mg/dL (Normal) Range: 0-149 :59 CBC WITH MANUAL DIFF ([id number]) Comments: PATIENT WAS FASTINGPERFORMED BY: [employer]370 [facility] [id number] Immature Grans (Abs) 0.0 {x10E3/uL} (Normal) Range: 0.0-0.1 Immature Granulocytes 0 % (Normal) Range: 0-2 Baso (Absolute) 0.0 {x10E3/uL} (Normal) Range: 0.0-0.2 Eos (Absolute) 0.1 {x10E3/uL} (Normal) Range: 0.0-0.4 Monocytes(Absolute) 0.3 {x10E3/uL} (Normal) Range: 0.1-1.0 Lymphs (Absolute) 1.4 {x10E3/uL} (Normal) Range: 0.7-4.5 Neutrophils (Absolute) 1.9 {x10E3/uL} (Normal) Range: 1.8-7.8 Basos 0 % (Normal) Range: 0-3 Eos 2 % (Normal) Range: 0-7 Monocytes 7 % (Normal) Range: 4-13 Lymphs 38 % (Normal) Range: 14-46 Neutrophils 53 % (Normal) Range: 40-74 Platelets 193 {x10E3/uL} (Normal) Range: 140-415 RDW 12.6 % (Normal) Range: 11.7-15.0 MCHC 34.6 g/dL (Normal) Range: 32.0-36.0 MCH 33.6 pg (Normal) Range: 27.0-34.0 MCV 97 fL (Normal) Range: 80-98 Hematocrit 42.5 % (Normal) Range: 34.0-44.0 Hemoglobin 14.7 g/dL (Normal) Range: 11.5-15.0 RBC 4.37 {x10E6/uL} (Normal) Range: 3.80-5.10 WBC 3.7 {x10E3/uL} (Abnormal) Range: 4.0-10.5 1-Pvj-519458:15 BILAT SCRN DIGITAL & CAD Radiology Report See Note (Normal) Comments: MAMMOGRAPHY - BILATERAL SCREENING REASON FOR EXAM: Female, 65 years old. Routine annual screeningexamination. PERTINENT HISTORY: Grandmother with breast cancer. TECHNIQUE: Digital exa mination. M ediolateral oblique (MLO) andcraniocaudad (CC) views of both breasts were obtained. CAD: CAD wasperformed on this study. COMPARISON: Comparison is made with prior study dated October 01, 2010. FINDING S:The breast composition is composed of scattered fibroglandular densities. There are no masses or suspicious microcalcifications. No other significant abnormalities are identified. There has been nosi gnificant change since the prior study. IMPRESSION:Normal bilateral screening mammogram. One year follow-up recommended. (A) ASSESSMENT CATEGORY:BIRADS Category 2: Benign finding(s). A letter regardi ng these resultswill be sent to the patient by the facility within 30 days. Approximately 10% of breast cancers are not detected by mammography. Anormal mammogram should not delay biopsy of a clinicall y suspiciousabnormality. Dictated on 10/04/11 1137 by Kanchan Pierre MDranscribed on 10/04/11 1601 by ITS IMPORTSign by Mikey Pierre MD on 10/04/11 1602 Sign by: Mikey Pierre MD 23-Xyb-751840:06 BMP Comments: appt 04/12/11 GAP 8 (Normal) Range: 5-15 CL 102 mmol/L (Normal) Range: 98-107 CO2 30.0 mmol/L (Normal) Range: 21.0-32.0 K 4.0 mmol/L (Normal) Range: 3.5-5.1 NA 140 mmol/L (Normal) Range: 136-145 BUN/CRE 31.4 {RATIO} (Abnormal) Range: 10-20 CA 9.4 mg/dL (Normal) Range: 8.5-10.1 EST GFR 89 mL/min (Normal) EST GFR - AA 108 mL/min (Normal) BUN 22 mg/dL (Abnormal) Range: 7-18 CREAT,SERUM 0.7 mg/dL (Normal) Range: 0.6-1.0 GLU 84 mg/dL (Normal) Range: 70-110 01-Oct-20100:00 BILAT SCRN DIGITAL & CAD Radiology Report See Note (Normal) Comments: MAMMOGRAPHY - BILATERAL SCREENING INDICATION:Routine annual screening examination. PERTINENT HISTORY:This examination. Mediolateral oblique (MLO) and craniocaudad (CC)viewsof both breasts were obtained . CAD was performed on this study. COMPARISON:September 26, 2008, October 05, 2009FINDINGS:The breast composition is heterogeneously dense.There are areas of asymmetric parenchymal density which have no tsignificantly changed.There are no new masses or suspicious microcalcifications. No other significant abnormalities are identified. IMPRESSION:Normal bilateral screening mammogram. Yearly follow-up re commended. ASSESSMENT CATEGORY:Category 2: Benign finding(s) Approximately 10% of breast cancers are not detected by mammography. Anormal mammogram should not delay biopsy of a clinically suspiciousab normality. Dictated on 10/01/101533 by ANANYA ORTIZTranscribed on 10/01/101533 by MAIN WAGNERSicain by ANANYA ORTIZ on 10/04/10 1405 Sign by: ANANYA ORTIZ :40 CBCD ABSOLUTE NEUT 1.8 3/uL (Abnormal) Range: 2.0-7.7 BASO% 0.6 % (Normal) Range: 0-1 EO% 1.6 % (Normal) Range: 0-5 LY% 39.0 % (Normal) Range: 19-41 MONO% 7.3 % (Normal) Range: 0-10 NEUT% 51.5 % (Normal) Range: 47-70 MPV 8.7 fL (Normal) Range: 6.5-12.0 PLT 171 K/mm3 (Normal) Range: 150-450 MCH 35.8 pg (Abnormal) Range: 27.0-32.0 MCHC 36.3 g/dL (Abnormal) Range: 32-36 RDW 12.6 % (Normal) Range: 11.6-14.6 HCT 39.7 % (Normal) Range: 37-47 HGB 14.4 g/dL (Normal) Range: 12.0-16.0 MCV 98.8 fL (Normal) Range: 81-99 RBC 4.06 {M/mm3} (Abnormal) Range: 4.2-5.4 WBC 3.5 K/mm3 (Abnormal) Range: 4.4-11.0 :40 COMP METABOLIC CO2 30.0 mmol/L (Normal) Range: 21.0-32.0 GAP 8 (Normal) Range: 5-15 CL 104 mmol/L (Normal) Range: 98-107 K 4.2 mmol/L (Normal) Range: 3.5-5.1 ALT 36 U/L (Normal) Range: 12-78 NA 142 mmol/L (Normal) Range: 136-145 T BILI 0.50 mg/dL (Normal) Range: 0.00-1.00 ALK P 97 U/L (Normal) Range: 50-136 AST 16 U/L (Normal) Range: 15-37 CA 9.9 mg/dL (Normal) Range: 8.5-10.1 A/G 1.3 {RATIO} (Normal) Range: 0.9-2.4 GLOB 3.0 g/dL (Normal) Range: 2.7-4.2 ALB 4.0 g/dL (Normal) Range: 3.4-5.0 BUN/CRE 34.0 {RATIO} (Abnormal) Range: 10-20 T PROT 7.0 g/dL (Normal) Range: 6.4-8.2 EST GFR - AA 160 mL/min (Normal) EST GFR 132 mL/min (Normal) CREAT,SERUM 0.5 mg/dL (Abnormal) Range: 0.6-1.0 BUN 17 mg/dL (Normal) Range: 7-18 GLU 92 mg/dL (Normal) Range: 70-110 :40 LIPID VLDL 25 mg/dL (Normal) Range: 5-40 HDL 44 mg/dL (Normal) Comments: Reference Range HDL <40 mg/dL Low HDL Cholesterol HDL >or= 60 mg/dL High HDL Cholesterol LDL 145 mg/dL (Abnormal) Range: 0-130 TRIG 126 mg/dL (Normal) Comments: Serum Triglycerides Reference Interval Normal <150 mg/dL Borderline high 150 - 199 mg/dL High 200 - 499 mg/dL Very High > or = 500 mg/dL CHOL 214 mg/dL (Abnormal) Comments: <200 mg/dL Desirable 200-240 mg/dL Borderline >240 mg/dL High Risk :40 MICROALB:CRE UR MALB:CREAT 6.5 {mg/g_CRE} (Normal) MICROALBUMIN,UR 7.0 mg/L (Normal) UR CREAT 107.3 mg/dL (Normal) :40 ROUTINE UA LEUK ESTERASE SeeNote (Normal) Comments: Result: NEGATIVE OCCULT BLOOD-UR SeeNote (Abnormal) Comments: Result: TRACE-INTACT NITRITE UR SeeNote (Normal) Comments: Result: NEGATIVE PROT DIPSTX SeeNote (Normal) Comments: Result: NEGATIVE UROBILI 1.0 EU/dl (Normal) Range: 0.2 - 1.0 pH UR 6.0 (Normal) Range: 5.0-8.0 SP.GR. DIPSTX 1.015 (Normal) Range: 1.002-1.030 KETONE UR SeeNote mg/dL (Normal) Comments: Result: NEGATIVE BILIRUBIN URINE SeeNote (Normal) Comments: Result: NEGATIVE CLARITY CLEAR (Normal) GLUCOSE, UR SeeNote (Normal) Comments: Result: NEGATIVE COLOR YELLOW (Normal) 64-Kpr-824008:54 CBCD,SMEAR DIFF RED CELL MORPH SeeNote {NORMAL} (Normal) Comments: Result: NORM C+C CELLS COUNTED 100 (Normal) EOS 3 % (Normal) Range: 0-5 HCT 42.0 % (Normal) Range: 37-47 HGB 14.5 g/dL (Normal) Range: 12.0-16.0 LYMPH 42 % (Abnormal) Range: 19-41 MCH 34.2 pg (Abnormal) Range: 27.0-32.0 MCHC 34.5 g/dL (Normal) Range: 32-36 MCV 99.1 fL (Abnormal) Range: 81-99 MONOCYTE 9 % (Normal) Range: 0-10 PLT 161 K/mm3 (Normal) Range: 150-450 PLT EST SeeNote (Normal) Comments: Result: ADEQUATE RBC 4.23 {M/mm3} (Normal) Range: 4.2-5.4 RDW 12.4 % (Normal) Range: 11.6-14.6 SEGS 46 % (Abnormal) Range: 47-70 WBC 3.2 K/mm3 (Abnormal) Range: 4.4-11.0 :54 COMP METABOLIC GAP 12 (Normal) Range: 5-15 A/G 1.4 {RATIO} (Normal) Range: 0.9-2.4 ALB 3.9 g/dL (Normal) Range: 3.4-5.0 ALK P 79 U/L (Normal) Range: 50-136 ALT 37 U/L (Normal) Range: 12-78 AST 18 U/L (Normal) Range: 15-37 CA 8.9 mg/dL (Normal) Range: 8.5-10.1 CL 104 mmol/L (Normal) Range: 98-107 CO2 25.0 mmol/L (Normal) Range: 21.0-32.0 GLOB 2.7 g/dL (Normal) Range: 2.7-4.2 K 3.7 mmol/L (Normal) Range: 3.5-5.1 NA 141 mmol/L (Normal) Range: 136-145 T BILI 0.30 mg/dL (Normal) Range: 0.00-1.00 T PROT 6.6 g/dL (Normal) Range: 6.4-8.2 BUN 17 mg/dL (Normal) Range: 7-18 BUN/CRE 28.3 {RATIO} (Abnormal) Range: 10-20 CREAT,SERUM 0.6 mg/dL (Normal) Range: 0.6-1.0 EST GFR 107 mL/min (Normal) EST GFR - AA 130 mL/min (Normal) GLU 89 mg/dL (Normal) Range: 70-110 :54 COMPLETE UA BACTERIA 0 SEEN {/hpf} (Normal) LEUK ESTERASE SeeNote (Normal) Comments: Result: NEGATIVE MUCUS, URINE 0 SEEN {/hpf} (Normal) OCCULT BLOOD-UR SeeNote (Normal) Comments: Result: NEGATIVE RBC-UA 0 SEEN {/hpf} (Normal) Range: 0-5 SQUAM EPI SeeNote {/hpf} (Normal) Range: 5-10 Comments: Result: 0-5 SEEN WBC SeeNote {/hpf} (Normal) Range: 0-5 Comments: Result: 0-5 SEEN BILIRUBIN URINE SeeNote (Normal) Comments: Result: NEGATIVE CLARITY CLEAR (Normal) COLOR YELLOW (Normal) GLUCOSE, UR SeeNote (Normal) Comments: Result: NEGATIVE KETONE UR SeeNote mg/dL (Normal) Comments: Result: NEGATIVE NITRITE UR SeeNote (Normal) Comments: Result: NEGATIVE pH UR 7.0 (Normal) Range: 5.0-8.0 PROT DIPSTX SeeNote (Normal) Comments: Result: NEGATIVE SP.GR. DIPSTX <=1.005 (Normal) Range: 1.002-1.030 UROBILI 0.2 EU/dl (Normal) Range: 0.2 - 1.0 :54 LIPID CHOL 207 mg/dL (Abnormal) Comments: <200 mg/dL [id number] mg/dL Borderline>240 mg/dL High Risk HDL 46 mg/dL (Normal) Comments: Reference RangeHDL <40 mg/dL Low HDL CholesterolHDL >or= 60 mg/dL High HDL Cholesterol LDL 124 mg/dL (Normal) Range: 0-130 TRIG 186 mg/dL (Normal) Comments: Serum Triglycerides Reference IntervalNormal <150 mg/dLBorderline high 150 - 199 mg/dLHigh 200 - 499 mg/ dLVery High > or = 500 mg/dL VLDL 37 mg/dL (Normal) Range: 5-40 :54 MICROALB:CRE UR MALB:CREAT <TEST NOT PERFORMED> {mg/g_CRE} (Normal) MICROALBUMIN,UR < 5.0 mg/L (Normal) UR CREAT 27.6 mg/dL (Normal) [id number] BILAT SCRN DIGITAL & CAD Radiology Report See Note (Normal) Comments: Exam Number: [id number] MAMMOGRAM, BILATERAL SCREENING DIGITAL AND CAD HISTORYRoutine screening. Full field digital images were obtained in mediolateral oblique andcraniocaudal projections. CAD images w ere reviewed. The current study is compared to the examinations of September, October 22, 2007 and September 26, 2008. There is a moderate extent of fibroglandular parenchyma present.There is no skin thickening or retraction, architectural distortion,or cluster of suspicious microcalcifications. There is an unusualappearing density in the lower inner quadrant of the right breastwhich has been stable compared to the previous examinations. There susan somewhat similar though smaller density in the lower inner quadrantof the left breast. There is no skin thickening or retraction,architectural d istortion or cluster of suspicious microcalcifications.There are a few scattered benign calcifications present.If there is no suspicious palpable abnormality, followup mammogram in1 year is recommended. IMPRESSIONThere is no radiographic evidence of malignancy identified. FINAL ASSESSMENTBenign findings. BIRADS Category 2. A letter regarding these results has been sent to the patient. This interpret ation was rendered by a radiologist certified under theMammography Quality Standards Act of 1992 (MQSA). The mammograms werealso examined with computer- aided detection software (Lumavita.). Reported By: ANANYA ORTIZ M.D. 50-Rmy-533714:28 LOWER EXT/JT ONLY (ROUTINE) Radiology Report See Note (Normal) Comments: Exam Number: [id number] CLINICAL:63-year-old female with a 5-week history of anterior and medial right knee pain post fall. MRI RIGHT KNEE COMPARISON:None. TECHNIQUE: Standardized fat and water weighted pulse sequences were obtained in all 3 orthogonal planes. FINDINGS: There is prominent intrasubstance degeneration and surface irregularity of the medial meniscus without a discrete surfacing meniscal t ear. There is greater than a 50% loss of hyaline cartilage thickness, without exposure of the subchondral bone of the medial femorotibial compartment (Grade III, Outerbridge classification). There is mi ld osteoarthritic spur formation of the medial femoral condyle and medial tibial plateau. The medial collateral ligamentous complex is normal without a ligamentous sprain. Normal distal semimembranosus, gracilis and semitendinosus tendons. Normal lateral meniscus without a meniscal tear. There is abnormal intrachondral signal (signal increase on the T2 weighted images), but a normal chondral surface o f the hyaline cartilage of the lateral femorotibial compartment (Grade I, Outerbridge classification). There is mild osteoarthritic spur formation of the lateral femoral condyle and lateral tibial plate au. There is a normal iliotibial band. The lateral collateral fibular ligament is normal without a ligamentous sprain. The popliteus tendon is normal. Normal biceps femoris tendon. The proximal tibiof ibular articulation is normal. The anterior cruciate ligament is normal without a sprain. Normal posterior cruciate ligament. Normal congruent patellofemoral articulation with subchondral reactive edema . There is greater than a 50% loss of hyaline cartilage thickness, without exposure of the subchondral bone of the medial and lateral patellar facets (Grade III, Outerbridge classification). Normal hyal ine cartilage of the medial and lateral trochlear condyles. The medial and lateral patellar retinaculum are normal. There is enthesophyte formation the superior pole of the patella. Normal patellar tend on. Normal Hoffa's infrapatellar fat pad. There is no joint effusion. There is no popliteal cyst. There is no extravasated joint effusion. The visualized osseous structures, including the distal femur, proximal tibia and fibula are otherwise normal. The visualized muscle groups of the distal thigh and proximal leg are normal. IMPRESSION:Degeneration and surface irregularity of the medial meniscus with out a surfacing tear. Tricompartmental chondromalacia and degenerative arthrosis. Reported By: ISABELLA ROLLE M.D. 01-Oct-20089:26 CBCD BASO% 0.3 % (Normal) Range: 0-1 EO% 1.6 % (Normal) Range: 0-5 HCT 40.8 % (Normal) Range: 37-47 HGB 14.6 g/dL (Normal) Range: 12.0-16.0 LY% 35.4 % (Normal) Range: 19-41 MCH 34.6 pg (Abnormal) Range: 27.0-32.0 MCHC 35.7 g/dL (Normal) Range: 32-36 MCV 96.9 fL (Normal) Range: 81-99 MONO% 5.8 % (Normal) Range: 0-10 MPV 8.6 fL (Normal) Range: 6.5-12.0 NEUT% 56.9 % (Normal) Range: 47-70 PLT 179 K/mm3 (Normal) Range: 150-450 RBC 4.21 {M/mm3} (Normal) Range: 4.2-5.4 RDW 12.7 % (Normal) Range: 11.6-14.6 WBC 3.6 K/mm3 (Abnormal) Range: 4.4-11.0 :26 COMP METABOLIC A/G 1.5 {RATIO} (Normal) Range: 0.9-2.4 ALB 4.1 g/dL (Normal) Range: 3.4-5.0 ALK P 105 U/L (Normal) Range: 50-136 ALT 53 U/L (Normal) Range: 30-65 AST 31 U/L (Normal) Range: 15-37 BUN 16 mg/dL (Normal) Range: 7-18 BUN/CRE 40.0 {RATIO} (Abnormal) Range: 10-20 CA 9.2 mg/dL (Normal) Range: 8.5-10.1 CL 107 mmol/L (Normal) Range: 98-107 CO2 26.1 mmol/L (Normal) Range: 21.0-32.0 CREAT,SERUM 0.4 mg/dL (Abnormal) Range: 0.6-1.0 GAP 7 (Normal) Range: 5-15 GLOB 2.8 g/dL (Normal) Range: 2.7-4.2 GLU 92 mg/dL (Normal) Range: 70-110 K 3.7 mmol/L (Normal) Range: 3.5-5.1 NA 140 mmol/L (Normal) Range: 136-145 T BILI 0.52 mg/dL (Normal) Range: 0.00-1.00 T PROT 6.9 g/dL (Normal) Range: 6.4-8.2 :26 LIPID CHOL 224 mg/dL (Abnormal) Comments: <200 mg/dL Desirable 200-240 mg/dL Borderline >240 mg/dL High Risk HDL 47 mg/dL (Normal) Comments: Reference Range HDL <40 mg/dL Low HDL Cholesterol HDL >or= 60 mg/dL High HDL Cholesterol LDL 157 mg/dL (Abnormal) Range: 0-130 TRIG 99 mg/dL (Normal) Comments: Serum Triglycerides Reference Interval Normal <150 mg/dL Borderline high 150 - 199 mg/dL High 200 - 499 mg/dL Very High > or = 500 mg/dL VLDL 20 mg/dL (Normal) Range: 5-40 27-Qzf-624147:00 BILAT SCRN DIGITAL & CAD Radiology Report See Note (Normal) Comments: Exam Number: [id number] MAMMOGRAM, BILATERAL SCREENING DIGITAL AND CAD HISTORYRoutine screening. Full field digital images were obtained in mediolateral oblique andcraniocaudal projections. CAD images w ere reviewed. The current study is compared to the examinations of September 2006 andSeptember 2007. There is moderately dense fibroglandular parenchyma present. There isno skin thickening or retraction , architectural distortion, or clusterof suspicious microcalcifications. There are areas of asymmetricparenchymal density which have not significantly changed. There arealso scattered benign-appearing calcifications. There is no dominantmass or significant interval change identified. If there is nosuspicious palpable abnormality, followup mammogram in 1 year isrecommended. IMPRESSIONThere is no rad iographic evidence of malignancy identified. FINAL ASSESSMENTBenign findings. BIRADS Category 2. A letter regarding these results has been sent to the patient. This interpretation was rendered by a ra diologist certified under theMammography Quality Standards Act of 1992 (MQSA). The mammograms werealso examined with computer-aided detection software ([employer].). Reported By: ANANYA ORTIZ M.D. 02-Nov-20078:51 BMP BUN 18 mg/dL (Normal) Range: 7-18 BUN/CRE 30.0 {RATIO} (Abnormal) Range: 10-20 CA 8.8 mg/dL (Normal) Range: 8.5-10.1 CL 104 mmol/L (Normal) Range: 98-107 CO2 27.6 mmol/L (Normal) Range: 21.0-32.0 Comments: Please Note Reference Interval Change CREAT,SERUM 0.6 mg/dL (Normal) Range: 0.6-1.0 GAP 10 (Normal) Range: 5-15 GLU 89 mg/dL (Normal) Range: 70-110 K 3.9 mmol/L (Normal) Range: 3.5-5.1 NA 142 mmol/L (Normal) Range: 136-145 39-Uwk-805445:13 Urinalysis, Office ([id number]) UA - BILIRUBIN Negative (Normal) UA - BLOOD Non Hemolyzed Trace (Normal) UA - GLUCOSE Negative (Normal) UA - KETONES Negative mg/dL (Normal) UA - LEUKOCYTE ESTERASE Trace (Normal) UA - NITRITE Negative (Normal) UA - PH 6.0 (Normal) UA - PROTEIN Negative mg/dL (Normal) UA - SPECIFIC GRAVITY 1.020 (Normal) URINE UROBILINGN PAKO TIMED 2 mg/dL (Normal) 17-Sab-529778:11 BILAT SCRN DIGITAL & CAD Radiology Report See Note (Normal) Comments: Exam Number: [id number] MAMMOGRAM, BILATERAL SCREENING DIGITAL AND CAD HISTORYRoutine screening. Full field digital images were obtained in mediolateral oblique andcraniocaudal projections. CAD images w ere reviewed. The current study is compared to the examinations of August 2005 andSeptember 2006. There is moderately dense fibroglandular parenchyma present. There isno skin thickening or retraction, architectural distortion, or clusterof suspicious microcalcifications. There are areas of asymmetricparenchymal density which have not significantly changed. If there isno suspicious palpable abnorma lity, follow-up mammogram in 1 year isrecommended. IMPRESSIONThere is no radiographic evidence of malignancy identified. FINAL ASSESSMENT: Benign findings.BIRADS Category 2. A letter regarding these re sults has been sent to the patient. This interpretation was rendered by a radiologist certified under theMammography Quality Standards Act of 1992 (MQSA). The mammograms werealso examined with compute r-aided detection software (Lumavita.). Reported By: ANANYA ORTIZ M.D. 58-Shd-256417:24 Microscopic Examination Comments: PATIENT NOT FASTINGPERFORMED BY: [facility] [id number] [facility] [id number] Bacteria Moderate (Abnormal) Crystal Type Calcium Oxalate (Normal) Comments: Amorphous Sediment Crystals Present (Abnormal) Epithelial Cells (non renal) >10 {/hpf} (Abnormal) Range: 0 - 10 Mucus Threads Present (Abnormal) RBC None seen {/hpf} (Normal) Range: 0 - 3 WBC 0-5 {/hpf} (Normal) Range: 0 - 5 Yeast Present (Abnormal) 57-Zou-731736:24 URINALYSIS W/O MICRO ([id number]) Comments: PATIENT NOT FASTINGPERFORMED BY: [facility] [id number] Appearance Clear (Normal) Bilirubin Negative (Normal) Glucose Negative (Normal) Ketones Negative (Normal) Microscopic Examination See below: (Normal) Nitrite, Urine Negative (Normal) Occult Blood Negative (Normal) pH 5.5 (Normal) Range: 5.0-7.5 Protein Negative (Normal) Specific Brutus 1.023 (Normal) Range: 1.005-1.030 Urine-Color Yellow (Normal) Urobilinogen,Semi-Qn 0.2 mg/dL (Normal) Range: 0.0-1.9 WBC Esterase 1+ (Abnormal) 81-Zhb-481407:24 METABOLIC PANEL, COMPREHENSIVE Comments: PATIENT NOT FASTINGPERFORMED BY: [facility] Pwhylf5451 [facility] [id number] ([id number]) A/G Ratio 2.0 (Normal) Range: 1.1-2.5 Albumin, Serum 4.5 g/dL (Normal) Range: 3.6-4.8 Alkaline Phosphatase, S 129 [iU]/L (Normal) Range: 25-165 ALT (SGPT) 33 [iU]/L (Normal) Range: 0-40 AST (SGOT) 21 [iU]/L (Normal) Range: 0-40 Bilirubin, Total 0.3 mg/dL (Normal) Range: 0.1-1.2 BUN 14 mg/dL (Normal) Range: 5-26 BUN/Creatinine Ratio 23 (Normal) Range: 8-27 Calcium, Serum 9.2 mg/dL (Normal) Range: 8.5-10.6 Carbon Dioxide, Total 27 mmol/L (Normal) Range: 20-32 Chloride, Serum 105 mmol/L (Normal) Range: 96-109 Creatinine, Serum 0.6 mg/dL (Normal) Range: 0.5-1.5 Globulin, Total 2.3 g/dL (Normal) Range: 1.5-4.5 Glucose, Serum 104 mg/dL (Abnormal) Range: 65-99 Potassium, Serum 4.1 mmol/L (Normal) Range: 3.5-5.5 Protein, Total, Serum 6.8 g/dL (Normal) Range: 6.0-8.5 Sodium, Serum 143 mmol/L (Normal) Range: 135-148 82-Hmd-601291:24 CBC WITH MANUAL DIFF ([id number]) Comments: PATIENT NOT FASTINGClinical Information: ADD DRAW FEE [id number] ADD J 38020 PERFORMED BY: [facility] [id number] [facility] [id number] Baso (Absolute) 0.0 {x10E3/uL} (Normal) Range: 0.0-0.2 Basos 0 % (Normal) Range: 0-3 Eos 3 % (Normal) Range: 0-7 Eos (Absolute) 0.1 {x10E3/uL} (Normal) Range: 0.0-0.4 Hematocrit 41.8 % (Normal) Range: 34.0-44.0 Hemoglobin 14.8 g/dL (Normal) Range: 11.5-15.0 Lymphs 32 % (Normal) Range: 14-46 Lymphs (Absolute) 1.0 {x10E3/uL} (Normal) Range: 0.7-4.5 MCH 34.2 pg (Abnormal) Range: 27.0-34.0 MCHC 35.5 g/dL (Normal) Range: 32.0-36.0 MCV 96 fL (Normal) Range: 80-98 Monocytes 6 % (Normal) Range: 4-13 Monocytes(Absolute) 0.2 {x10E3/uL} (Normal) Range: 0.1-1.0 Neutrophils 59 % (Normal) Range: 40-74 Neutrophils (Absolute) 1.8 {x10E3/uL} (Normal) Range: 1.8-7.8 Platelets 198 {x10E3/uL} (Normal) Range: 140-415 RBC 4.34 {x10E6/uL} (Normal) Range: 3.80-5.10 RDW 12.5 % (Normal) Range: 11.7-15.0 WBC 3.1 {x10E3/uL} Range: 4.0-10.5 (Abnormal) 37-Ztq-52883:00 CULTURE, THROAT See Note (Normal) Comments: Normal throat fredo isolated. No beta-hemolyticstreptococcus isolated. 74-Lbr-547800:20 CHEST, PA AND LATERAL Radiology Report See Note (Normal) Comments: Exam Number: [id number] PA AND LATERAL CHEST HISTORYShortness of breath, chest heaviness. Cardiac configuration is normal. No acute infiltrate, effusion orpneumothorax is noted. There is spur formatio n in the mid dorsalspine. There is mild overinflation of the lungs. Further clinicalcorrelation needed. IMPRESSION1. No acute change noted in the lungs. Reported By: TRU SUNSHINE M.D. :01 CBCD,SMEAR DIFF CELLS COUNTED 100 (Normal) EOS 2 % (Normal) Range: 0-5 LYMPH 42 % (Abnormal) Range: 19-41 MONOCYTE 7 % (Normal) Range: 0-10 PLT EST SeeNote (Normal) Comments: Result: ADEQUATE RED CELL MORPH SeeNote {NORMAL} (Normal) Comments: Result: NORM C&C SEGS 49 % (Normal) Range: 47-70 HCT 40.5 % (Normal) Range: 37-47 HGB 14.5 g/dL (Normal) Range: 12.0-16.0 MCH 34.3 pg (Abnormal) Range: 27.0-32.0 MCHC 35.8 g/dL (Normal) Range: 32-36 MCV 95.9 fL (Normal) Range: 81-99 PLT 202 K/mm3 (Normal) Range: 150-450 RBC 4.22 {M/mm3} (Normal) Range: 4.2-5.4 RDW 12.3 % (Normal) Range: 11.6-14.6 WBC 3.3 K/mm3 (Abnormal) Range: 4.4-11.0 :01 COMP METABOLIC A/G 1.5 {RATIO} (Normal) Range: 0.9-2.4 ALB 4.3 g/dL (Normal) Range: 3.4-5.0 ALK P 117 U/L (Normal) Range: 50-136 ALT 39 [iU]/L (Normal) Range: 30-65 AST 17 U/L (Normal) Range: 15-37 BUN 16 mg/dL (Normal) Range: 7-18 BUN/CRE 26.7 {RATIO} (Abnormal) Range: 10-20 CA 9.1 mg/dL (Normal) Range: 8.5-10.1 CL 105 mmol/L (Normal) Range: 98-107 CO2 28.6 mmol/L (Normal) Range: 22.0-29.0 CREAT,SERUM 0.6 mg/dL (Normal) Range: 0.6-1.0 GAP 8 (Normal) Range: 5-15 GLOB 2.8 g/dL (Normal) Range: 2.3-3.5 GLU 84 mg/dL (Normal) Range: 70-110 K 3.9 mmol/L (Normal) Range: 3.5-5.1 NA 142 mmol/L (Normal) Range: 136-145 T BILI 0.55 mg/dL (Normal) Range: 0.00-1.00 T PROT 7.1 g/dL (Normal) Range: 6.4-8.2 80-Voc-38325:01 PFLIP CHOL 219 mg/dL (Abnormal) Comments: <200 mg/dL Desirable 200-240 mg/dL Borderline >240 mg/dL High Risk HDL 43 mg/dL (Normal) Comments: Reference Range HDL <40 mg/dL Low HDL Cholesterol HDL >or= 60 mg/dL High HDL Cholesterol LDL 153 mg/dL (Abnormal) Range: 0-130 TRIG 116 mg/dL (Normal) Comments: Serum Triglycerides Reference Interval Normal <150 mg/dL Borderline high 150 - 199 mg/dL High 200 - 499 mg/dL Very High > or = 500 mg/dL VLDL 23 mg/dL (Normal) Range: 5-40 Plan of Care Name Dates Details Instructions Mass of left lung : Eprescribed prescriptions (G8553) Indication: Mass of left lung Inflamed skin tag : Skin Tags Indication: Inflamed skin tag Encounter for Medicare annual wellness exam : Eprescribed prescriptions (G8553) Indication: Encounter for Medicare annual wellness exam Alteration of body temperature : Follow up if no improvement or if symptoms worsen Indication: Alteration of body temperature Laryngitis : Laryngitis Education Indication: Laryngitis Acute bronchitis due to other specified organisms : *URI Symptoms Indication: Acute bronchitis due to other specified organisms Acute bronchitis due to other specified organisms : *Antibiotic Usage Education - Female Indication: Acute bronchitis due to other specified organisms Hypertension : Follow up in 2 week Indication: Hypertension Hypertension : BP MONITORING - SELF Indication: Hypertension Allergic rhinitis : Allergic Rhinitis *: allergic rhinitis Indication: Allergic rhinitis Knee pain : Follow up in 2 weeks Indication: Knee pain Other sites of candidiasis : Follow up as needed Indication: Other sites of candidiasis Acute sinusitis, unspecified : URI Symptoms Indication: Acute sinusitis, unspecified Acute sinusitis, unspecified : URI treament Indication: Acute sinusitis, unspecified Acute sinusitis, unspecified : Antibiotic Usage Education - Female Indication: Acute sinusitis, unspecified Pharyngitis, acute : URI treament Indication: Pharyngitis, acute Bronchitis : Solu Medrol Injection/ Education Indication: Bronchitis Wheezing : Follow up monday Indication: Wheezing Acute sinusitis, unspecified : URI treament Indication: Acute sinusitis, unspecified Wheezing : MDI Education Indication: Wheezing Bronchitis : Antibiotic Usage Education - Female Indication: Bronchitis Bronchitis : URI Symptoms Indication: Bronchitis Planned Observations TRIGLYCERIDES ([id number])Indication: Hypercholesterolemia On: 3-Kcm-902020:21 Request LDL CHOLESTEROL-DIRECT (72594)Indication: Hypercholesterolemia On: 6-Wqw-050886:21 Request Metabolic Panel, Basic (66161)Indication: Hypertension On: 25-Fsj-110275:19 Request Metabolic Panel, Comprehensive (83606)Indication: Hypertension On: 53-Fzy-918802:05 Request Comments: in six months (approximately) CBC, Platelets & Auto Diff (29031)Indication: Hypertension On: : Request CALCIFIDIOL (78268) VIT D 25Indication: Preoperative clearance On: :32 Request Lipid Panel (81350)Indication: Preoperative clearance On: :32 Request Metabolic Panel, Comprehensive (86018)Indication: Preoperative clearance On: 45-Buj-423089:32 Request TSH (37092)Indication: Preoperative clearance On: :32 Request CBC WITH MANUAL DIFF (07391)Indication: Preoperative clearance On: :32 Request CBC, Platelets & Auto Diff (85530)Indication: Alteration of body temperature On: 04-Rhv-414107:02 Request Metabolic Panel, Basic (54892)Indication: Hypertension On: :43 Request URINALYSIS, W/ MICRO (65543)Indication: Hypertension On: :03 Request METABOLIC PANEL, COMPREHENSIVE (16629)Indication: Hypertension On: :03 Request LIPID PANEL (37460)Indication: Hypertension On: :02 Request CBC with auto diff (44253)Indication: Hypertension On: :02 Request CALCIFEDIOL (94077)Indication: Hypertension On: 26-Jji-045821:17 Request TSH (13620)Indication: Hypertension On: 01-Rdq-857156:16 Request CBC WITH MANUAL DIFF (47640)Indication: Hypertension On: 31-Asw-498262:16 Request Lipid Panel (55589)Indication: Hypercholesterolemia On: 74-Bum-509477:16 Request Metabolic Panel, Comprehensive (95854)Indication: Hypertension On: 45-Tbl-643030:16 Request CALCIFIDIOL (58737) VIT D 25Indication: Benign breast cyst in female On: :39 Request URINALYSIS, W/ MICRO (58789)Indication: Hypertension On: :38 Request MICROALBUMIN: CREATININE RATIO (88174) AND ([id number])Indication: Hypertension On: :38 Request METABOLIC PANEL, COMPREHENSIVE (31830)Indication: Hypertension On: :38 Request LIPID PANEL (12470)Indication: Hypertension On: :38 Request CBC WITH MANUAL DIFF (05916)Indication: Hypertension On: :38 Request URINALYSIS (80262)Indication: Hypertension On: 75-Zkd-618841:12 Request CBC with manual diff ([id number])Indication: Hypertension On: :53 Request Lipid Panel (05121)Indication: Hypertension On: :52 Request Metabolic Panel, Comprehensive (91152)Indication: Hypertension On: :52 Request Metabolic Panel, Basic (42706)Indication: Hypertension On: 97-Ueq-091868:12 Request METABOLIC PANEL, BASIC (17392)Indication: Hypertension On: 13-Jza-407309:27 Request MICROALBUMIN: CREATININE RATIO (60437) AND ([id number])Indication: Hypercholesterolemia On: :39 Request CBC, PLATELETS & AUT DIFF ([id number])Indication: Hypercholesterolemia On: :39 Request URINALYSIS (13384)Indication: Hypercholesterolemia On: :39 Request LIPID PANEL ([id number])Indication: Hypercholesterolemia On: :39 Request METABOLIC PANEL, COMPREHENSIVE (31485)Indication: Hypercholesterolemia On: :39 Request URINALYSIS, W/ MICRO (62711)Indication: Hypertension On: :58 Request MICROALBUMIN: CREATININE RATIO (01924) AND (63782)Indication: Hypertension On: 67-Qri-453327:58 Request METABOLIC PANEL, COMPREHENSIVE (32714)Indication: Hypertension On: 22-Ysq-902599:58 Request LIPID PANEL (40548)Indication: Hypertension On: 72-Aso-491169:58 Request CBC WITH MANUAL DIFF ([id number])Indication: Hypertension On: 25-Fwo-535642:58 Request Rapid Strep Test, Office (25671)Indication: Pharyngitis, acute On: :54 Request LIBBY CULTURE-OTHER ([id number])Indication: Pharyngitis, acute On: :54 Request LIPID PANEL ([id number])Indication: Hypercholesterolemia On: 9-Dhn-256780:11 Request HEPATIC FUNCTION PANEL ([id number])Indication: Hypercholesterolemia On: 3-Vwz-430054:11 Request Comments: in six months CBC WITH MANUAL DIFF ([id number])Indication: Hypertension On: 48-Mom-629336:35 Request LIPID PANEL (19089)Indication: Hypertension On: 73-Hkx-877078:34 Request METABOLIC PANEL, COMPREHENSIVE (70412)Indication: Hypertension On: 80-Xix-635188:34 Request Planned Encounters Medical; [facility] 3 Month FU - On: 11-Sep-2018 11:30 [facility] Damaris TERRY, Sade Butt MD Planned Procedures DEXA SCAN AXIAL SKELETON (58873)By: On: 06-Apr-2018 Intent Sade Ocampo MD, MD, Dana M MAMMOGRAM BREAST BILATERAL On: 16-Mar-2018 Intent SCREENING DIGITAL (27312)By: Sade Ocampo MD, MD, Dana M EKG (67340)By: Sade Ocampo MD On: 13-Feb-2018 Intent Sade Ocampo MD Radiology - Hand - RightBy: Damaris On: 29-Jan-2018 Intent Sade TERRY MD, Dana M Radiology - Hip - LeftBy: Damaris On: 12-May-2017 Intent Sade TERRY MD, Dana M Radiology - Lumbar SpineBy: Damaris On: 12-May-2017 Intent Sade TERRY MD, Dana M MAMMOGRAM BREAST BILATERAL On: 13-Mar-2017 Intent SCREENING DIGITAL (60437)By: Sade Ocampo MD, MD, Dana M Aerosol Treatment (35142)By: Lydiarb On: 20-Jan-2016 Intent Dora RG MAMMOGRAM, SCREENING, BOTH BREAST On: 02-Oct-2015 Intent (43972)By: Sade Ocampo MD, MD, Dana M Bone Density StudyBy: Damaris TERRY, On: 02-Oct-2015 Intent Sade Butt MD BILATERAL MAMMOGRAMS (53823)By: On: 21-Sep-2015 Intent Sade Ocampo MD, MD, Dana M Prevnar 13 (23872)By: Damaris TERRY, On: 17-Oct-2014 Intent Sade Butt MD BILATERAL MAMMOGRAMS (48915)By: On: 16-Sep-2014 Intent Sade Ocampo MD, MD, Dana M Breast Screening - BilateralBy: On: 16-Sep-2013 Intent Sade Ocampo MD, MD, Dana M Rocephon Injection, 1 Gm On: 20-Nov-2012 Intent (J0696)By: Sade Ocampo MD Comments: Lot #[id number]-bilateral hipsDose- 2 gramsgiven by: IFRAH Anderson MD, Dana M THER/PROPH/DIAG INJ, SC/IM On: 20-Nov-2012 Intent (52306)By: Sade Ocampo MD, MD, Dana M Eprescribed prescriptions On: 08-Nov-2012 Intent (G8553)By: Sade Ocampo MD, MD, Dana M PNEUM VAC ADLT/IMUMNOSPR, SBC/INTRM On: 15-Oct-2012 Intent (26707)By: Jacquelyn Steven LPN Comments: Lot: [id number]: [id number]: 0.5mlRoute: IMSite: L deltoidGiven by: IFRAH Suh IMMUNIZ ADMNIN, 1 VAC, SNGL/COMBO On: 15-Oct-2012 Intent (42019)By: Jacquelyn Steven LPN Breast Screening - BilateralBy: On: 08-Oct-2012 Intent Sade Ocampo MD, MD, Sade CORONA ADMNIN, 1 VAC, SNGL/COMBO On: 08-Oct-2012 Intent (50476)By: Sade Ocampo MD, MD, Sade Barbosa PNEUM VAC ADLT/IMUMNOSPR, SBC/INTRM On: 08-Oct-2012 Intent (78989)By: Sade Ocampo MD, MD, Sade CORONA ADMNIN, 1 VAC, SNGL/COMBO On: 08-Oct-2012 Intent (27634)By: DAVID Nina FLU VAC, SPLIT, >3 YEARS, INTRAMUSC On: 08-Oct-2012 Intent (56024)By: DAVID Nina MRI - Knee(s) - LeftBy: Donovan KIDD, On: 30-Dec-2011 Intent Alissa Garcia PHYSICAL THERAPY EVALUATION On: 30-Dec-2011 Intent (71541)By: Alissa Man CNP Doppler Ultrasound OtherBy: Donovan On: 30-Dec-2011 Intent Alissa KIDD Radiology - Knee - LeftBy: Donovan On: 30-Dec-2011 Intent Alissa KIDD Breast Screening - BilateralBy: On: 04-Aug-2011 Intent Sade Ocampo MD, MD, Dana M Eprescribed prescriptions On: 10-Jan-2011 Intent (G8553)By: Sade Ocampo MD, MD, Dana M EKG (50461)By: DAVID Nina On: 12-Oct-2010 Intent MAMMOGRAM, SCREENING, BOTH BREASTS On: 20-Sep-2010 Intent (62558)By: Haley Chaparro DO EKG (11431)By: Sade Ocampo MD On: 17-Sep-2009 Intent Sade Ocampo MD MAMMOGRAM, SCREENING, BOTH BREASTS On: 17-Sep-2009 Intent (90618)By: Sade Ocampo MD, MD, Dana M MAMMOGRAM, SCREENING, BOTH BREASTS On: 23-Sep-2008 Intent (79173)By: Lara Iglesias Nuclear Stress Test/Stress On: 19-Oct-2007 Intent SPECT/TreadmillBy: Haley Chaparro DO A EKG (27824)By: Haley Chaparro DO On: 19-Oct-2007 Intent Comments: ekg showed normal sinus rhythym, normal axis, no acute st/t wave changes nsivcd Bio Z ([id number])By: Haley Chaparro DO On: 19-Oct-2007 Intent Comments: good paremeterss IMMUNIZ ADMNIN, 1 VAC, SNGL/COMBO On: 22-Aug-2007 Intent ([id number])By: Shruthi Louis LPN PNEUM VAC ADLT/IMUMNOSPR, SBC/INTRM On: 22-Aug-2007 Intent ([id number])By: Shruthi Louis LPN Comments: lot # [id number] exp- 09/06 LDLT patient tolerated well Flu Vaccine, Split IM ([id number])By: On: 22-Aug-2007 Intent Shruthi Louis LPN Comments: lot #[id number] exp- 02/04 RDLT patient tolerated well SPECIMEN HNDLNG/TRNSPRT, OFFC > LAB On: 18-Jun-2007 Intent ([id number])By: NAYELI DIAMOND CNP Pulse Oximetry ([id number])By: [place] On: 18-Jun-2007 Intent DAVID Radiology - Chest- PA and LatBy: On: 09-Feb-2007 Intent Lacey Sherman DO Aerosol Treatment ([id number])By: Lane On: 09-Feb-2007 Intent Lacey SALAZAR Comments: more air exchange-- softer rhonchi no wheeze Solu- Medrol Injection, 125mg On: 09-Feb-2007 Intent ([id number])By: Lacey Sherman DO Comments: lot # [id number] 08/07 LGLT Radiology - ChestBy: Lane SALAZAR, On: 07-Feb-2007 Intent Lacey Solu -Medrol Injection, 125 mg On: 07-Feb-2007 Intent ([id number])By: Wanda Kaur RN Comments: Lot #: [id number] date:08/07Amount given: 125 mg/2 mlRoute: IMSite given: Right glutealGiven by: Magalys Michael LPN Inhaler Demo ([id number])By: DARA KIDD, On: 07-Feb-2007 Intent NAYELI Aerosol Treatment ([id number])By: DARA On: 07-Feb-2007 Intent MARTINAYELI Comments: moderate improvement after treatment--still tons of wheezing diffuse inspir and exp IMMUNIZ ADMNIN, 1 VAC, SNGL/COMBO On: 13-Oct-2006 Intent ([id number])By: Sade Ocampo MD, MD, Dana M FLU VAC, SPLIT, >3 YEARS, INTRAMUSC On: 13-Oct-2006 Intent ([id number])By: Sade Ocampo MD, MD, Dana M MAMMOGRAM, SCREENING, BOTH BREASTS On: 13-Oct-2006 Intent ([id number])By: Sade Ocampo MD, MD, Dana M EKG ([id number])By: Sade Ocampo MD On: 13-Oct-2006 Intent Sade Ocampo MD Bio Z ([id number])By: Sade Ocampo MD On: 13-Oct-2006 Intent Sade Ocampo MD Planned Medications INJECTION, CEFTRIAXONE SODIUM, PER 250 MG Ordered: 20-Nov-2012 Pending Sade Ocampo MD, MD, Dana M Instructions Name Dates Details Mass of left lung : How to access health information online Indication: Mass of left lung Mass of left lung : How to access health information online - Detail Indication: Mass of left lung Mass of left lung : Patient Instructions Indication: Mass of left lung Encounter for Medicare annual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 The sinusitis/ has no relieving factors. Associated features include The symptoms have been associated with End: 18-Jun-2007 9:18 cough ,nasal discharge/stuffy nose ,sinus pain and sore throat. Note for Sinusitis/: throat is burning- no exposure. Mild coughEncounter Diagnosis: SOB (786.05), ACUTE PHARYNGITIS (462.), Acute sinusitis, unspecified (461.9) [facility] Office Visit On: 12-Feb-2007 13:19 Encounter Reason: Follow up acute care visit - The patient feels the same and has decreased energy level. Patient has been compliant with instructions. Current medication use: no side effects ,compliant with dosing regim End: 12-Feb-2007 13:32 en and considered effective by patient. Patient sleeps 6 (monday, last night awake every hour) hours per night. Nutrition: balanced diet. The medical issues the patient is following up for include All identified problems below and other (bronchitis/sinusitis). Encounter Diagnosis: Wheezing (786.07), BRONCHITIS, NOT SPECIFIED ACUTE OR CHRONIC (490.) [facility] Office Visit On: 09-Feb-2007 13:05 Encounter Reason: Follow up acute care visit - The patient feeling better since last seen (tired, myalgia) and improving. Patient has been compliant with instructions. Current medication use: no side effects ,compliant w End: 09-Feb-2007 14:04 ith dosing regimen and considered effective by patient. Patient sleeps 6 (with tylenol PM) hours per night. Impact of disease: no overall impact. Nutrition: balanced diet. The medical issues the patient is following up for include other (sinitis). Encounter Diagnosis: Wheezing (786.07), BRONCHITIS, NOT SPECIFIED ACUTE OR CHRONIC (490.) [facility] Office Visit On: 07-Feb-2007 8:32 Encounter Reason: Cough - The onset of the cough has been acute (10 days). The cough is characterized as productive of mucoid sputum. The amount of sputum produced is scanty. The cough occurs mainly at night. The symptom End: 07-Feb-2007 10:00 s are aggravated by supine posture. The symptoms have been associated with runny nose and wheezing. the color of the sputum is yellowish. Encounter Diagnosis: BRONCHITIS, NOT SPECIFIED ACUTE OR CHRONIC (490.), Wheezing (786.07), Acute sinusitis, unspecified (461.9) [facility] Refill Request On: 31-Jan-2007 11:29 Encounter Diagnosis: Unspecified Diagnosis End: 31-Jan-2007 11:32 [facility] Office Visit On: 02-Nov-2006 14:41 Encounter Reason: Follow up, Laboratory Test Results - Lab results: abnormal blood lipids and abnormal CBC. Date: (10-04). Current symptoms/reason for visit include/s Follow up visit with no current symptoms. Past medica End: 02-Nov-2006 15:13 l history includes cardiovascular disease ,elevated cholesterol ,elevated triglycerides and other (osteoarthiritis, IBS, DDD). Encounter Diagnosis: Hypercholesterolemia (272.0), SOB (786.05) [facility] Office Visit On: 13-Oct-2006 13:06 Encounter Diagnosis: Need for prophylactic vaccination and inoculation against influenza (V04.81) End: 13-Oct-2006 19:40 [facility] Office Visit On: 13-Oct-2006 12:12 Encounter Reason: Follow up for chronic medical issues - The patient feels well with no complaints. Patient has been compliant with instructions. Current medication use: no side effects. Patient sleeps 7 hours per night. End: 13-Oct-2006 12:49 Impact of disease: no overall impact. Nutrition: balanced diet. The medical issues the patient is following up for include gastric reflux ,high blood pressure ,high cholesterol ,osteoarthritis and othe r (DDD, IBS ). 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
--- OUTSIDE RECORDS SUMMARY | 2019-01-17 14:43 | XMS RPT_ITS | Continuity of Care Document ---
:1945 Author Organization [facility] Address [address] [place] [address] Phone Care Team Providers Name Role Phone Saed Ocampo MD Unavailable Sade Ocampo MD Unavailable Teodoro Sanchez Unavailable Josefina Parsons Unavailable DAVID Nina Unavailable Unavailable Unavailable Unavailable Problems Name Dates Details Abnormal RBC indices (R71.8, 790.09) Comments: MCV elevated...will check vitamin b12 Status: Active Allergic rhinitis (J30.9, 477.9) Comments: use saline nasa anita Status: Active BMI 30.0-30.9,adult (Z68.30, V85.30) Status: Active Carotid stenosis (I65.29, 433.10) Comments: mild-mod 7-18 Status: Active Coronary artery disease (I25.10, 414.00) Comments: mild in RCA and LAD by calcium coronary score Status: Active Current nonsmoker (Renamed from Current non-smoker) (Z78.9, V49.89) Status: Active Encounter for Medicare annual wellness exam (Z00.00, V70.0) Comments: 04/06/18 [facility] Wellness physical. colonoscopy 6-17 3 polyps recheck 3 years, mammogram due [...] patient recent tests and LDL up 145. she had atherosclerosis asa a day. want her on statin and tell side effects but she worry about aches so talk about zetia talk about vegan. will read Dr. sharri de leon reversing heart disease and zetia Status: Active Hypertension (I10, 401.9) Comments: had weight loss will check at home over 140/90 call. Status: Active Inflamed skin tag (L91.8, 701.9) Comments: has 4 around neck that get caught in necklace so removeed Status: Active Influenza vaccination declined (Renamed from Refused influenza vaccine) (Z28.21, V64.06) Status: Active Irritable bowel syndrome (K58.9, 564.1) [...] degenerative disc disease (M53.9, 722.6) Status: Active Neck discomfort (M54.2, 723.1) Comments: when touch and swallow on right side of throat feel get caught. years ago EGD because had this signs and symptoms and okay Status: Active Obesity, unspecified (E66.9, 278.00) Comments: done well loosing weight. takl about this and diet increase exercise cn log will get fitbit Status: Active Osteoarthritis, chronic (M19.90, 715.90) Comments: see Dr. noble white and not psoriatic. limit walking her knees. [...] out. Status: Active Medications Name Dates Details Losartan Potassium-HCTZ 100-25 MG Oral Tablet 1 (one) Tablet qd for 0 days Quantity: 60 {Tablet} Refills: 6 Ordered:11-Sep-2018 Damaris TERRY, Sade Vasquez MD Start : 11-Sep-2018 Active Pantoprazole Sodium 40 MG Oral Tablet Delayed Release 1 (one) Tablet DR qd for 0 days Quantity: 60 {Tablet} Refills: 4 Ordered:05-Mar-2018 Damaris TERRY, Sade Vasquez MD Start : 05-Mar-2018 Active Zetia 10 MG Oral Tablet 1 (one) Tablet in am for 0 days Quantity: 30 {Tablet} Refills: 5 Ordered:11-Sep-2018 Damaris TERRY, Sade Vasquez MD Start : 11-Sep-2018 Active ALTACE, 10MG (Oral Capsule) 1 Capsule [...] days Quantity: 60 {Tablet} Refills: 4 Ordered:01-Oct-2012 Long PATTERN CHECKER, Karly L Start : 07-Sep-2012 End : 01-Oct-2012 Inactive DIOVAN HCT, 80-12.5MG (Oral Tablet) 1 Tablet qd for 0 days Quantity: 30 {Tablet} Refills: 6 Ordered:01-Oct-2012 Long PATTERN CHECKER, Karly L Start : 07-Sep-2012 End : 01-Oct-2012 Inactive [...] : 27-Jun-2017 Inactive Comments:can use cheaper generic Lidoderm 5 % External Patch uad Patch on 12 hours off 12 hours to affected area(s) for 0 days Quantity: 1 {Box} Refills: 3 Ordered:11-Sep-2018 DAVID Nina Start : 15-May-2018 End : 11-Sep-2018 Inactive LOPRESSOR, 50MG (Oral Tablet) 1/2 Tablet bid [...] : 06-Nov-2008 End : 30-Mar-2009 Inactive NYSTATIN, [id number]/GM (External Powder) uad Powder bid to affected area (s) prn for 0 days Quantity: 1 {Bottle} Refills: 2 Ordered:17-Oct-2014 DAVID Nina Start : 01-Jul-2014 End : 17-Oct-2014 Inactive Olmesartan Medoxomil-HCTZ 40-25 MG Oral Tablet 1 (one) Tablet qd for 0 days Quantity: 60 {Tablet} Refills: 4 Ordered:04-Jun-2018 Damaris TERRY, Sade Olson MD, Sade Barbosa Start : 04-Jun-2018 End [...] (R68.89, 780.99) Status: Inactive as of 12-May-2017 Benign breast cyst in female (N60.09, 610.0) Comments: getting biopsy 11-12Referral for Dr. humphries Status: Resolved as of 11-Sep-2018 BMI 32.0-32.9,adult (Z68.32, V85.32) Status: Resolved as of 11-Sep-2018 BMI 33.0-33.9,adult (Z68.33, V85.33) Status: Resolved as of 11-Sep-2018 Bronchitis (J40, 490) Status: Inactive as of [...] Unspecified Diagnosis Status: Inactive as of 17-Oct-2014 Urinary frequency (R35.0, 788.41) Status: Resolved as [...] and Lateral Result: Comments: See Note; NOTES: [facility] Imaging Services [address] [place] [address] Chest PA and Lateral MR#: [id number] Acct: [id number] Name: SACHIN SCHUSTER Rosana Rep #: [id number] : 1945 F 72 From: Jose Elias Campbell MD PCP: Sade Ocampo MD Status: REG CLI Study: Chest PA and Lateral Date of Exam: 05/24/18 Exam# [id number] Ordering Dr: Teodoro Sanchez MD STUDY: X-RAY TROY REASON FOR EXAM: Female, 72 years old. [...] CC: Sade Ocampo MD; Teodoro Sanchez MD Executive Cyber Leader: Signed 30-Apr-2018 PET/CT Tumor Base -Thigh Init Result: Comments: See Note; NOTES: [facility] Imaging Services [address] [place] [address] PET/CT Tumor Base -Thigh Init MR#: [id number] Acct: [id number] Name: SACHIN SCHUSTER Rep # : [id number] : 1945 F 72 From: Walter Monzon DO PCP: Sade Ocampo MD Status: REG CLI Study: PET/CT Tumor Base -Thigh Init Date of Exam: 04/30/18 Exam# [id number] Ordering Dr: Sade Ocampo MD EXAMINATION: FDG [...] Nuclear Medicine 29:93, 2003). Electronic Signature [facility] Signed: Walter Monzon DO at 23:12 EDT Tel , Service support , CC: Sade Ocampo MD Executive Cyber Leader: Signed 24-Apr-2018 Dexa Bone Density Study Result: Comments: See Note; NOTES: [facility] Imaging Services [address] [place] [address] Dexa Bone Density Study MR#: [id number] Acct: [id number] Name: SACHIN SCHUSTER Rep #: [id number] : 1945 F 72 From: Mikey Pierre MD PCP: Sade Ocampo MD Status: REG CLI Study: Dexa Bone Density Study Date of Exam: 04/24/18 Exam# [id number] Ordering Dr: Sade Ocampo MD STUDY: DUAL [...] Mikey Pierre MD at 14:05 EDT Tel [phone], Service support , CC: Sade Ocampo MD Executive Cyber Leader: Signed 19-Apr-2018 Downtime Report Result: Comments: See Note; NOTES: [facility] Medical Records Department [address] [place] [address] Downtime Report MR#: [id number] Acct: [id number] Name: LEAHSCAHIN J Rep #: [id number] : 1945 72 From: Donte De Jesus PCP: Sade Ocampo MD Status: REG CLI This patient was seen during an EMR downtime April 02, 2018 - April 09, 2018. This patient may have a combination of p aper and electronic documentation or all paper documentation. All documentation is viewable within the e-chart portion of [employer] for each patient visit. 17-Apr-[address] w/CCTA Result: Comments: See Note; NOTES: [facility] Imaging Services [address] [place] [address] w/CCTA MR#: [id number] Acct: [id number] Name: SACHIN SCHUSTER Rep #: [id number] : 1945 F 72 From: Mikey Pierre MD PCP: Sade Ocampo MD Status: REG CLI Study: Limited Chest CT w/CCTA Date of Exam: 04/17/18 Exam# [id number] Ordering Dr: Sade Ocampo MD STUDY: CT [...] Mikey Pierre MD at 15:38 EDT Tel [phone], Service support , CC: Sade Ocampo MD Executive Cyber Leader: Signed 09-Apr-2018 SCREENING MAMM (CAD), BILAT Result: Comments: See Note; NOTES: [facility] Imaging Services [address] [place] [address] SCREENING MAMM (CAD), BILAT MR#: [id number] Acct: [id number] Name: SACHIN SCHUSTER Rep #: [id number] : 1945 F 72 From: Valentín Gross MD PCP: Sade Ocampo MD Status: REG CLI Study: SCREENING MAMM (CAD), BILAT Date of Exam: 04/09/18 Exam# [id number] Ordering Dr: Sade Ocampo MD MAMM OGRAPHY - BILATERAL SCREENING REASON FOR EXAM: Female, 72 years old. Routine annual screening examination. PERTINENT HISTORY: FAM HX PAT GMA AGE 79 LOST 10# NO SX RT CYST ASPIRATION IN DR MORROW OFFIC 2013 TECHNIQUE: Digital bilateral breast starr (3D [...] delay biopsy of a clinically suspicious abnormality. [id number] Electronically Signed: Valentín Gross MD at 14:15 EDT Tel , Service support [phone], CC: Sade Ocampo MD Executive Cyber Leader: Signed 30-Jan-2018 Hand Min 3 Views Result: Comments: See Note; NOTES: [facility] Imaging Services [address] [place] [address] [place] [address] Hand Min 3 Views MR#: [id number] Acct: [id number] Name: SACHIN SCHUSTER Rep #: [id number] D OB: 1945 F 72 From: Fernando Oliva DO PCP: Sade Ocampo MD Status: REG CLI Study: Hand Min 3 Views Date of Exam: 01/30/18 Exam# [id number] Ordering Dr: Sade Ocampo MD STUDY: X-RAY [...] Service support , CC: Sade Ocampo MD Executive Cyber Leader: Signed 18-Dec-2017 Urgent Care Visit Report Result: Comments: See Note; NOTES: [facility] [address] [place] [address] OFFICE VISIT Date of Service: 12/18/17 MR#: [id number] Acct: [id number] Name: SACHIN SCHUSTER Re p #: [id number] : 1945 Provider: Kyle JIMENEZ Age/Sex: 72/F Location: [facility] [place] Status: Signed Intake Vital Signs12/18/17 Height 5 ft 2 in 12/18/17 Weight: 170 lb 8 oz Intake Visit Reasons: SO RE THROAT Pattern Maker Required: No Accompanied by: None Is patient [...] pattern Exam Const General: cooperative, healthy appearing HENUT Head: normal to inspection Ears: hearing grossly [...] the above. This note was generated with NanoGram software. It may contain incorrect words, spelling, [...] with Pelvis Result: Comments: See Note; NOTES: [facility] Imaging Services [address] [place] [address] Verdana 4d Hip 2-3 Views with Pelvis MR#: [id number] Acct: [id number] Name: SACHIN SCHUSTER Rep #: [id number] : 1945 F 71 From: Mikey Pierre MD PCP: Sade Ocampo MD Status: [facility] Study: Hip 2-3 Views with Pelvis Date of Exam: 05/12/17 Exam# [id number] Ordering Dr: Kodi Ocampo MD STUDY: X-RAY [...] Mikey Pierre MD at 12:44 EDT Tel [phone], Service support , CC: Sade Ocampo MD Executive Cyber Leader: Signed 12-May-2017 L/S Spine Min 4 Views Result: Comments: See Note; NOTES: [facility] Imaging Services [address] [place] [address] Verwoolrich 4d L/S Spine Min 4 Views MR#: [id number] Acct: [id number] Name: SACHIN SCHUSTER p #: [id number] : 1945 F 71 From: Mikey Pierre MD PCP: Sade Ocampo MD Status: REG CLI Study: L/S Spine Min 4 Views Date of Exam: 05/12/17 Exam# [id number] Ordering Dr: Sade Ocampo MD STUDY: X-RAY [...] Pierre MD a t 12:43 EDT Tel [phone], Service support , CC: Sade Ocampo MD Executive Cyber Leader: Signed 29-Mar-2017 Breast Limited Unilateral Result: Comments: See Note; NOTES: [facility] Imaging Services [address] [place] [address] Verdasonia 4d Breast Limited Unilateral MR#: [id number] Acct: [id number] Name: SACHIN SCHUSTER Rep #: [id number] : 1945 F 71 From: Mikey Pierre MD PCP: Sade Ocampo MD Status: REG CLI Study: Breast Limited Unilateral Date of Exam: 03/29/17 Exam# [id number] Ordering Dr: Kodi Ocampo MD STUDY: ULTRASOUND [...] Mikey Pierre MD at 15:51 EDT Tel [phone], Service support , CC: Sade Ocampo MD Executive Cyber Leader: Signed 22-Mar-2017 SCREENING MAMM (CAD), BILAT Result: Comments: See Note; NOTES: [facility] Imaging Services [address] [place] [address] Verda 4d SCREENING MAMM (CAD), BILAT MR#: [id number] Acct: [id number] Name: HELLEN SCHUSTER Rep #: [id number] : 1945 F 71 From: Mieky Pierre MD PCP: Sade Ocampo MD Status: REG CLI Study: SCREENING MAMM (CAD), BILAT Date of Exam: 03/22/17 Exam# [id number] Ordering Dr: Sade Ocampo MD MAMMOGRAPHY - [...] delay biopsy of a clinically suspicious abnormality. [id number] Electronically Signed: Mikey Pierre MD at 8:05 EDT Tel [phone], Service support , CC: Sade Ocampo MD Executive Cyber Leader: Signed 21-Jun-2016 PT D/C Summary (1) Result: Comments: See Note; NOTES: [facility] Physical Therapy [facility] [facility]. [address] [place] [address] Fax REHABILITATION SERVICES [place]ISS JOSE SUMMARY MR#: [id number] Acct: [id number] Name: SACHIN SCHUSTER Rep #: [id number] : 1945 70 From: Dora Cunningham MPT Referring DrHien: OUT OF TOWN DOCTOR Status: REG RCR [...] walking better with heel to toe pattern. Dr said to continue with PT for another [...] STRENGTH AND KNEE EXT. 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 Thank you for the referral of this patient. Sincerely, An carmel Cunningham <Electronically signed by Dora DODSON> 06/21/16 3700 CC: RADHA COTTRELL; Sade Ocampo MD; OUT OF TOWN DOCTOR Signed 25-May-2016 Re-Evaluation - PT (1) Result: Comments: See Note; NOTES: [facility] Physical Therapy [facility] [address] [place] [address]. [address] [place] [address] Fax REEVALUATION / ME DICARE RECERTIFICATION [place] 4d PHYSICAL THERAPY MR#: [id number] Acct: [id number] Name: SACHIN SCHUSTER Rep #: [id number] : 1945 70 From: Dora DODSON Referring DrHien: OUT OF TOWN DOCTOR Status: REG RCR [...] do not hesitate to contact me at [phone] by phone or if you have questions or concerns regarding this new plan of care! Sincerely, Dora Cunningham <Electronically signed by Dora Cunningham MPT> 05/25/16 1917 CC: RADHA COTTRELL; Sade Ocampo MD; OUT OF TOWN DOCTOR Signed For Medicare only, by signing this I certify the pl an of care. Physicians Signature Date 29-Apr-2016 Inital Evaluation (1) - PT Result: Comments: See Note; NOTES: [facility] Physical Therapy [facility] [address] [facility] [place] [address] Fax REHABILITATION [place]ADE INITIAL EVALUATION MR#: [id number] Acct: [id number] Name: SACHIN SCHUSTER Rep #: [id number] : 1945 70 From: Dora Cunningham MPT Referring Dr.: OUT OF [facility] DOCTOR Status: REG RCR Insurance: MEDICARE PART A B AETNA Patient's Visit Information SACHIN SCHUSTER is a 70 year old F referred to Physical Therapy by Out of [facility] Doctor RADHA COTTRELL with a diagnosis of Kevyn droplasty and medial menisectomy. Date of Evaluation: 04/29/16 Physical Therapist: Dora Cunningham - Visit Plan Frequency: 3x /Week Duration: 4 Weeks - Subjective Subjective: Pt likes to go by Danyelle. Pt reports that 3 weeks ago torigo pt had menisuc surgery. Pt reports that she has a lot of arthritis and Dr suggested PT. She reports that her knee is still sore and stiff. Pt has trouble with s tanding for long periods of time and causes increase stiffness and pain. Pt has not tried stairs. Pt has been walking in the [place] or at the [place] to see her mom. Pt had trouble [...] to be FAXED BACK to us at [phone] for Medicare purposes. Please let me kn [...] Only (Routine) Result: Comments: See Note; NOTES: [facility] Imaging Services [address] [place] [address] Verdana 4d Lower Ext Joint Only (Routine) MR#: [id number] Acct: [id number] Na me: SACHIN SCHUSTER Rosana Rep #: [id number] : 1945 F 70 From: Hermann Inman MD PCP: Sade Ocampo MD Status: REG CLI Study: Lower Ext Joint Only (Routine) Date of Exam: 03/09/16 Exam# [id number] O jhoan Dr: Marck Armendariz STUDY: MRI RIGHT KNEE [...] FACR at 8:04 EDT , Service support [phone], CC: MARCK ARMENDARIZ; Sade Ocampo MD Executive Cyber Leader: Signed 28-Oct-2015 Bilat Scrn Digital AND CAD Result: Comments: See Note; NOTES: [facility] Imaging Services [address] [place] [address] Verdana 4d Bilat Scrn Digital AND CAD MR#: [id number] Acct: [id number] Name: SACHIN SCHUSTER Rep #: [id number] : 1945 F 69 From: Jose Elias Campbell MD PCP: Sade Ocampo MD Status: REG CLI Study: Bilat Scrn Digital AND CAD Date of Exam: 10/28/15 Exam# [id number] Ordering Dr: Sade Ocampo MD MAMMOGRAPHY - [...] delay biopsy of a clinically suspicious abnormality. [id number] Electronically Betsy d: Elijah Campbell MD at 11:23 EST Tel , Service support [phone], CC: Sade Ocampo MD Executive Cyber Leader: Signed 28-Oct-2015 Dexa Bone Density Study (HP) Result: Comments: See Note; NOTES: [facility] Imaging Services [address] [place] [address] Verdana 4d Dexa Bone Density Study (HP) MR#: [id number] Acct: [id number] Name : SACHIN SCHUSTER Rep #: [id number] : 1945 F 69 From: Mikey Pierre MD PCP: Sade Ocampo MD Status: [facility] Study: Dexa Bone Density Study (HP) Date of Exam: 10/28/15 Exam# [id number] Ella staples Dr: Sade Ocampo MD STUDY: [...] Mikey Pierre MD at 8:33 EST Tel [phone], Service support [phone], CC: Sade Ocampo MD Executive Cyber Leader: Signed 27-Oct-2014 Bilnubia Scrn Digital AND CAD Result: Comments: See Note; NOTES: [facility] Imaging Services [address] [place] [address] Breast Imaging Report MR#: [id number] Acct: [id number] Name: Leigh Ann SCHUSTER Rep #: [id number] : 1945 F 68 From: Jose Elias Campbell MD PCP: Sade Ocampo MD Status: REG CLI Study: Elizabeth Christiansen Digital AND CAD Date of Exam: 10/27/14 Exam# [id number] Ordering Dr: Sade Ocampo MD MAMM OGRAPHY [...] Elijah Campbell MD at 14:42 EST Tel [phone], Service supp ort [phone], CC: Sade Ocampo MD Executive Cyber Leader: Signed 17-Oct-2014 EKG (37731) Comments: see scanned document of test done to see results reviewed today with patient Result: [MEASUREMENTS ANALYSIS] Date of Test: 10/17/2014 10:58:06; Heart Rate: 77; FL Interval: 142; QRS: 96; QT Interval: 382; Corrected QT Interval (QTc): 411; P Wave [place]: 43; QRS Wave [place]: 10; T Wave [place]: -1; Blood Pressure: 120/80 [ECG DIAGNOSTIC STATEMENTS] Date of Test: 10/17/2014 10:58:06; Summary: Sinus Rhythm WITHIN NORMAL LIMITS 21-May-2014 Breast Unilateral Result: Comments: See Note; NOTES: [facility] Imaging Services [address] [place] [address] Ultrasound Report MR#: [id number] Acct: [id number] Name: Leigh Ann SCHUSTER Rep #: [id number] : 1945 F 68 From: Valentín Gross MD PCP: Sade Ocampo MD Status: REG CLI Study: Breast Unilateral Date of Exam: 05/21/14 Exam# [id number] Ordering Dr: Teodoro Humphries MD STUDY: ULTRAS [...] at 17:35 EDT Tel , Service support [phone], CC: Sade Ocampo MD; Teodoro Humphries MD Executive Cyber Leader: Signed 25-Feb-2014 Upper Ext Joint Only(Routine) Result: Comments: See Note; NOTES: [facility] Imaging Services [address] [place] [address] MRI Report MR#: [id number] Acct: [id number] Name: Leigh Ann SCHUSTER Rep #: [id number] : 1945 F 68 From: Hossein Matos MD PCP: Sade Ocampo MD Status: REG CLI Study: Upper Ext Joint Only(Routine) Date of Exam: 02/25/14 Exam# [id number] Ordering Dr: Christian Beard DO STUDY: MRI [...] MD at 11:58 EDT , Service support [phone], CC: Sade Ocampo MD; Christian Beard Executive Cyber Leader: Signed 14-Feb-2014 Shoulder min 2 Views Result: Comments: See Note; NOTES: [facility] Imaging Services [address] [place] [address] Radiology Report MR#: [id number] Acct: [id number] Name: Leigh Ann SCHUSTER Rep #: [id number] : 1945 F 68 From: Mikey Pierre MD PCP: Sade Ocampo MD Status: REG CLI Study: Shoulder min 2 Views Date of Exam: 02/14/14 Exam# [id number] Ordering Dr: Christian Beard DO STUDY: X [...] Mikey Pierre MD at 14:06 EDT Tel [phone], Service support [phone], 0055 RAD/Shoulder min 2 Views IMPRESSION: Degenerative changes of the acromioclavicular joint. Electronically Signed: Mikey Pierre MD at 14:06 EDT Tel [phone], Service support [phone], CC : Sade Ocampo MD; Christian Beard Executive Cyber Leader: Signed 16-Oct-2013 Breast Unilateral Result: Comments: See Note; NOTES: [facility] Imaging Services [address] [place] [address] Ultrasound Report MR#: [id number] Acct: [id number] Name: Leigh Ann SCHUSTER Rep #: [id number] : 1945 F 67 From: Mikey Pierre MD PCP: Sade Ocampo MD Status: REG CLI Study: Breast Unilateral Date of Exam: 10/16/13 Exam# [id number] Ordering Dr: Sade Ocampo MD STUDY: ULT [...] M.D. at 16:45 EST , Service support [phone], CC: Sade Ocampo MD Executive Cyber Leader: Signed 11-Oct-2013 Elizabeth Christiansen Digital & CAD Result: Comments: See Note; NOTES: [facility] Imaging Services [address] [place] [address] Breast Imaging Report MR#: [id number] Acct: [id number] Name: Leigh Ann SCHUSTER Rep #: [id number] : 1945 F 67 From: Mikey Pierre MD PCP: Sade Ocampo MD Status: REG CLI Exam# [id number] Ordering Dr: Sade Ocampo MD MAMMOGRAPHY - [...] M.D. at 15:33 EST , Service support [phone], CC: Sade Ocampo MD Executive Cyber Leader: Signed Immunization Name Dates Details Influenza (3 years and up) on: 13-Oct-2006 Influenza (3 years and up) on: 22-Aug-2007 Comments: lot #[id number] exp- 02/04 RDLT patient tolerated well Pneumococcal [...] Living Situation: Lives with spouse. Comments: , [employer]ology andimportant DPSHAMEKA schuster [phone] Status: Active No Caffeine Use Status: Active [...] smoker Vital Signs Date Test Result Details 04-Zhn-702224:30 Comments: 130/70's at home Temperature 97.9 f Comments: Method: Temporal Pulse 86 /min Comments: Pattern: Regular Respiration Rate 18 /min Comments: Pattern: Unlabored O2 SAT 98 % Comments: Room air BP Systolic 155 mm[Hg] Comments: Patient Position: Sitting; Cuff Location: Left Arm; Cuff Size: Standard BP Diastolic 84 mm[Hg] Comments: Patient Position: Sitting; Cuff Location: Left Arm; Cuff Size: Standard Weight 168 lb Height 62 in Body Mass Index Calculated 30.73 kg/m2 Body Surface Area Calculated 1.78 m2 :48 Temperature 97.6 f Comments: Method: Temporal [...] 84 /min Comments: Pattern: Regular Respiration Rate 38022 /min Comments: Pattern: Unlabored O2 SAT 98 [...] kg/m2 Body Surface Area Calculated 1.85 m2 35-Uin-497471:05 Temperature 97.6 f Comments: Method: Temporal Pulse [...] kg/m2 Body Surface Area Calculated 1.81 m2 :01 Temperature 97.9 f Comments: Method: Oral Pulse [...] Height 0 in Head Circumference 0.00 cm 8-Rxf-184074:38 Temperature 97.6 f Comments: Method: Oral Pulse [...] Height 0 in Head Circumference 0.00 cm :13 Temperature 98.6 f Comments: Method: Oral Pulse [...] 0.00 cm Results Date Description Value Details 0-Kyb-681088:09 LDL, Direct Comments: Comments: [facility] (refer to report for specific site)refer to report for address and phone number; 09-11-18 db COMMENT Test not performed (Normal) LDL,DIR 826771 147 mg/dL (Abnormal) Range: 0-99 Comments: Performed at: [address] [place], [place] [id number] Director: Steve Carey PhD, Phone: [phone] 5-Kss-650066:09 Triglycerides Comments: Comments: [facility] [id number] [place], [address] TRIG 117 mg/dL (Normal) Comments: The drugs N-Acetylcysteine and Metamizole may falselydepress this assay.Serum Triglycerides Reference Interval Normal <150 mg/dL Borderline high 150 - 199 mg/dL High 200 - 499 mg/dL Very High > or = 500 mg/dL 14-Mep-441583:27 Carcinoembryonic Antigen Comments: [facility] (refer to report for specific site)refer to report for address and phone number CEA 1.4 ng/mL (Normal) Range: 0.0-4.7 Comments: Caroline ECLIA methodology Nonsmokers <3.9 Smokers <5.6Performed at: [address] [id number] Director: Steve Carey PhD, Phone: [phone] 24-Kwb-836539:27 CRP Comments: [facility] [id number] [place], [address] C-REACTIVE PROT 5.31 mg/L (Abnormal) Range: 0.0-3.0 Comments: C-Reactive Protein (CRP) provides useful information for thediagnosis, therapy and monitoring of inflammatory processesand associated diseases. For the evaluation of Relative Riskfor Cardiovascular Dise ase, a High Sensitivity CRP (HSCRP)should be ordered. 97-Jip-324456:27 Erythrocyte Sed Rate Comments: [facility] [facility] [address] [place], [place], [id number] SED RATE 3 mm/h (Normal) Range: 0-30 64-Uiq-639299:27 URINE HISTOPLASMA ANTIGEN Comments: [facility] (refer to report for specific site)refer to report for address and phone number UR Comments: TEST RESULT LIMITSHistoplasma Gal'krys Ag Ur <0.5 <0.5 ng/mLDisclaimer: This test was developed and its performance characteristics determined by [facility] (Normal) [facility]. It has not been cleared or approved by the Food and Drug Administration. TESTING PERFORMED AT [facility]. ORIGINAL REPORT ON FILE IN LAB AG CONTAINS ADDITIONAL TEST SITE INFORMATION. 0-Ovd-681981:26 Metabolic Panel, Basic (26148) Comments: PATIENT NOT FASTINGPERFORMED BY: [facility] HoldingsM[facility]6370 [facility] [id number] Calcium 10.0 mg/dL (Normal) Range: 8.7-10.3 Carbon [...] 8-27 Glucose 113 mg/dL (Abnormal) Range: 65-99 82-Idc-153142:23 Metabolic Panel, Comprehensive Comments: PATIENT NOT FASTINGPERFORMED BY: [facility]6370 [facility] [id number] (05168) ALT (SGPT) 23 [iU]/L (Normal) Range: 0-32 [...] 8-27 Glucose 94 mg/dL (Normal) Range: 65-99 52-Pea-020423:23 CBC WITH MANUAL DIFF Comments: PATIENT NOT FASTINGPERFORMED BY: [facility]Mxswuj9935 [facility] [id number] Information: NURSE DRAW; fu DB 6-8 (24975) Immature Grans (Abs) 0.0 {x10E3/uL} (Normal) Range: [...] 3.77-5.28 WBC 3.2 {x10E3/uL} (Abnormal) Range: 3.4-10.8 09-Vjk-015788:23 MICROALBUMIN: CREATININE RATIO Comments: PATIENT NOT FASTINGPERFORMED BY: [address] [id number] (59740) AND (42597) Alb/Creat Ratio 5.3 {mg/g_creat} (Normal) Range: 0.0-30.0 Albumin, Urine 3.7 ug/mL (Normal) Creatinine, Urine 70.0 mg/dL (Normal) 46-Puf-853600:23 URINALYSIS (12318) Comments: PATIENT NOT FASTINGPERFORMED BY: [facility] HoldingsM[facility]6370 [facility] [id number] Microscopic Examination MICNIP (Normal) Comments: Microscopic not indicated and not performed. Nitrite, Urine Negative (Normal) Urobilinogen,Semi-Qn 0.2 mg/dL (Normal) Range: 0.2-1.0 Bilirubin Negative (Normal) Occult Blood Negative (Normal) Ketones Negative (Normal) Glucose Negative (Normal) Protein Negative (Normal) WBC Esterase Negative (Normal) Appearance Clear (Normal) Urine-Color Yellow (Normal) pH 6.5 (Normal) Range: 5.0-7.5 Specific Laporte 1.018 (Normal) Range: 1.005-1.030 23-Flr-444616:30 Culture, R/O Strep A Comments: [facility] [address] [place], [address] CUSTREPA See Note (Normal) Comments: AVERY CultureNo Group A Beta Streptococcus isolated. * This cultures intended use is to screen for Beta Streptococcus A only. All other pathogens and potential pathogens will not be screened for or rep orted. If a complete workup of all potential pathogens is indicated an order for a routine throat culture is required. 7-Dpt-900906:10 ANTINUCLEAR ANTIBODIES DIRECT Comments: [facility] (refer to report for specific site)refer to report for address and phone number MILTON-DIRECT Negative (Normal) Comments: Performed at: [address] [id number] Director: Steve Carey PhD, Phone: [phone] 9-Mkv-808679:10 Ferritin Comments: [facility] [address] [place], [place], [address] FERRITIN 251 ng/mL (Normal) Range: 8-252 15-Ino-002264:40 Methymalonic Acid, Serum Comments: today; PATIENT NOT FASTINGPERFORMED BY: [address]el[address] [id number] BY: [address] [id number] (25403) Methylmalonic Acid, Serum 198 nmol/L (Normal) Range: 0-378 31-Vkb-271106:40 Vitamin B-12 Comments: today; PATIENT NOT FASTINGPERFORMED BY: [employer] [id number] BY: [address] [id number] (cyanocobalamin) (03548) Vitamin B12 353 pg/mL (Normal) Range: 211-946 47-Gbo-827065:23 HEPATITIS C ANTIBODY Comments: PATIENT NOT FASTINGPERFORMED BY: [address] [id number] Information: NURSE DRAW (44712) Hep C Virus Ab <0.1 {s/co_ratio} (Normal) Range: 0.0-0.9 Comments: Negative: < 0.8 Indeterminate: 0.8 - 0.9 Positive: > 0.9 . The CDC recommends that a positive HCV antibody result be followed up with a HCV Nucleic Acid Amplification test (047958). :57 Alanine Aminotransferas (SGPT) Comments: DR.CHARLICK VERDIN.[facility] [address] [place], [address] ALT 32 U/L (Normal) Range: 12-78 :57 ALB/GLOB Ratio Comments: DR.CHARLICK VERDIN.[facility] [address] [place], [address] A/G 1.2 {RATIO} (Normal) Range: 0.9-2.4 :57 Albumin, Serum Comments: DR.CHARLICK VERDIN.[facility] [address] [place], [address] ALB 3.7 g/dL (Normal) Range: 3.4-5.0 :57 Alkaline Phosphatase Comments: DR.CHARLICK VERDIN.[facility] [address] [place], [address] ALK P 93 U/L (Normal) Range: 50-136 :57 AST(SGOT) Comments: DR.CHARLICK VERDIN.[facility] [address] [place], [address] AST 22 U/L (Normal) Range: 15-37 :57 Basic Metabolic Profile (BMP) Comments: DR.CHARLICK VREDIN.[facility] [address] [place], [address] GAP 8 (Normal) Range: 5-15 CO2 26.0 [...] Range: 70-110 :57 Bilirubin, Total Comments: DR.CHARLICK VERDIN.[facility] [address] [place], [place], [id number](180) T BILI 0.50 mg/dL (Normal) Range: 0.20-1.00 :57 Globulin Comments: DR.CHARLICK VERDIN.[facility] [address] [place], [place], [id number] GLOB 3.1 g/dL (Normal) Range: 2.3-3.5 :57 Lipid Profile Comments: DR.CHARLICK VERDIN.[facility] Lvihbrwyjo8264 [facility] [place], [place], [address] VLDL 17 mg/dL (Normal) Range: 5-40 LDL [...] High Risk :57 Protein, Total Comments: DR.CHARLICK VERDIN.[facility] [address] [place], [address] T PROT 6.8 g/dL (Normal) Range: 6.4-8.2 15-Beo-81609:57 Thyroid Stim Hormone (TSH) Comments: DR.CHARLICK VERDIN.[facility] [address] [place], [address] TSH 1.36 {uIU/mL} (Normal) Range: 0.358-3.74 42-Fii-682217:40 Rapid Flu (04343 x 2) Comments: neg Influenza A Ag negative (Normal) :47 CBC W/Diff, Automated Comments: [facility] [address] [place], [address] ; [address] Absolute Lymph 1.25 {X10_3/ul} [...] 4.2-5.4 WBC 3.5 K/mm3 (Abnormal) Range: 4.4-11.0 :47 Comprehensive Metabolic Profil Comments: [facility] [address] [place], [place], [address] GAP 9 (Normal) Range: 5-15 CO2 25.0 [...] (Normal) Range: 70-110 :47 Lipid Profile Comments: [facility] [address] [place] [address], [address] VLDL 28 mg/dL (Normal) Range: 5-40 LDL [...] Risk :47 Thyroid Stim Hormone (TSH) Comments: [facility] [address] [place] [address], [address] TSH 1.13 {uIU/mL} (Normal) Range: 0.358-3.74 :47 Vitamin D,25 Hydroxy Comments: [facility] [address] [place] [address], [id number] Vitamin D 25-OH 41.2 ng/mL (Normal) Comments: Vitamin D 25(OH) Status Range Deficiency <20 ng/mL (50nmol/L) Insuffciency 20 - 30 ng/mL (50 - 75 nmol/L) Sufficiency 30 - 100 ng/mL (75 - 250 nmol/L) Toxicity >100 ng/mL (>250 nmol/L) 2-Nhe-052453:53 URINALYSIS (40229) Comments: PATIENT NOT FASTINGPERFORMED BY: [facility]Ztmpnr1148 [facility] [id number] Information: [id number] Microscopic Examination MICNIP (Normal) Comments: Microscopic not indicated and not performed. Nitrite, Urine Negative (Normal) Urobilinogen,Semi-Qn 0.2 mg/dL (Normal) Range: 0.0-1.9 Bilirubin Negative (Normal) Occult Blood Negative (Normal) Ketones Negative (Normal) Glucose Negative (Normal) Protein Negative (Normal) WBC Esterase Negative (Normal) Appearance Clear (Normal) Urine-Color Yellow (Normal) pH 7.5 (Normal) Range: 5.0-7.5 Specific Laporte 1.015 (Normal) Range: 1.005-1.030 8-Tqp-068485:53 URINE LIBBY CULTURE-IDENTIFICATN Comments: PATIENT NOT FASTINGPERFORMED BY: [facility] [address] [place] [id number] ([address]) Result 1 NG36 (Normal) Comments: No growth in 36 - 48 hours. Urine Culture,Comprehensive Final report (Normal) :22 CBC W/Diff, Automated Comments: Test performed at:[facility] [address] [place] [address] Absolute Lymph 1.45 {X10_3/ul} (Normal) Range: 0.83-4.51 [...] :22 Comprehensive Metabolic Profil Comments: Test performed at:[facility] [address] [place] [address] GAP 6 (Normal) Range: 5-15 [...] 70-110 :22 Lipid Profile Comments: Test performed at:[facility] [address] [place], [place] [id number] VLDL 27 mg/dL (Normal) Range: 5-40 LDL [...] :22 Microalb:Creat Ratio,Random UR Comments: Test performed at:[facility] [address] [place] [address] MALB:CREAT 7.1 {mg/g_CRE} (Normal) MICROALBUMIN,UR 18.2 mg/L (Normal) UR CREAT 256.0 mg/dL (Normal) :22 Urinalysis, Complete Comments: How was Urine Obtained? CLEAN CATCHTest performed at:[facility] [address] [place] [address] CA OX CRYSTAL 1+ {/hpf} (Normal) [...] :22 Vitamin D,25 Hydroxy Comments: Test performed at:[facility] [address] [place] [address] Vitamin D 25-OH 44.6 ng/mL (Normal) Comments: [...] 7-18 GLU 94 mg/dL (Normal) Range: 70-110 79-Gyz-413130:55 UA Comments: How was Urine Obtained? CLEAN CATCH ANA 100 /ul (Abnormal) UOB 10 /ul (Abnormal) PRATEEK Negative (Normal) UROBU Normal mg/dL (Normal) VASQUEZ 6.0 (Normal) Range: 5.0 - 8.0 uPROTU Negative mg/dL (Normal) SGU 1.020 (Normal) Range: 1.002-1.030 KETU Negative mg/dL (Normal) BILIU Negative mg/dL (Normal) GLUR Normal mg/dL (Normal) UCLAR Clear (Normal) UCOL Yellow (Normal) 22-Wju-599587:23 Microscopic Examination Comments: PATIENT WAS FASTINGPERFORMED BY: [facility]6370 [facility] [id number] Bacteria None seen (Normal) Mucus Threads Present (Normal) Epithelial Cells (non renal) 0-10 {/hpf} (Normal) Range: 0 - 10 RBC None seen {/hpf} (Normal) Range: 0 - 3 WBC 0-5 {/hpf} (Normal) Range: 0 - 5 47-Llg-307349:51 BILAT SCRN DIGITAL & CAD Radiology Report See Note (Normal) Comments: MAMMOGRAPHY - BILATERAL SCREENING REASON FOR EXAM: Female, 66 years old. Routine annual screeningexamination. PERTINENT HISTORY: Grandmother with breast cancer. TECHNIQUE: Digital exa mination. M ediolateral oblique (MLO) andcraniocaudad (CC) views of both breasts were obtained. CAD: CAD wasperformed on this study. COMPARISON: Comparison is made with prior studies dated October 04nd Dece mb2009. FINDINGS:The breast composition is composed [...] Pierre M.D.October 09, 2012 at 12:29:05 PM [id number] Signed GP/GP If you are the referring physician and would like to consult with theradiologist who provided this interpretation, please contact Santos Chatterjee at [phone]. If this radiologist is unavailable, youwill be directed to another radiologi st to assist. If you are a patient with a question regarding this report, pleasecontactyour referring physician directly. Professional Interpretation Provided By: Yorder, Phone ,Fax These documents contain legally protected [...] destructionofthese documents. Dictated on 10/09/12 1152 by Kanchan Pierre MDranscribed on 10/09/12 1234 by ITS IMPORTSign by Mikey Pierre MD on 10/09/12 1235 Si gn by: Gabby TERRY,Mikey 34-Lkh-265369:23 URINALYSIS, W/ MICRO (56074) Comments: PATIENT WAS FASTINGPERFORMED BY: [facility] Zquyhq7932 [facility] [id number] Microscopic Examination See below: (Normal) Microscopic Examination MICRON (Normal) Comments: Microscopic follows if indicated. Nitrite, Urine Negative (Normal) Urobilinogen,Semi-Qn 1.0 mg/dL (Normal) Range: 0.0-1.9 Bilirubin Negative (Normal) Occult Blood Negative (Normal) Ketones Negative (Normal) Glucose Negative (Normal) Protein Negative (Normal) WBC Esterase Negative (Normal) Appearance Clear (Normal) Urine-Color Yellow (Normal) pH 7.5 (Normal) Range: 5.0-7.5 Specific Lap[place] 1.021 (Normal) Range: 1.005-1.030 52-Vde-450691:23 MICROALBUMIN: CREATININE RATIO Comments: PATIENT WAS FASTINGPERFORMED BY: [employer]6370 [facility] [id number] (76777) AND (79262) Microalb/Creat Ratio 3.0 {mg/g_creat} (Normal) Range: 0.0-30.0 Microalbumin, Urine 2.5 ug/mL (Normal) Range: 0.0-17.0 Creatinine, Urine 82.1 mg/dL (Normal) Range: 15.0-278.0 69-Ceh-141680:23 METABOLIC PANEL, COMPREHENSIVE Comments: PATIENT WAS FASTINGPERFORMED BY: GRUZOBZORlin6370 [facility] [id number] (98869) ALT (SGPT) 29 [iU]/L (Normal) Range: 0-32 [...] Glucose, Serum 93 mg/dL (Normal) Range: 65-99 77-Yoh-515578:23 LIPID PANEL (98459) Comments: PATIENT WAS FASTINGPERFORMED BY: [employer]70 [facility] [id number] LDL/HDL Ratio 3.0 {ratio_units} (Normal) Range: 0.0-3.2 LDL Cholesterol Calc 145 mg/dL (Abnormal) Range: 0-99 HDL Cholesterol 49 mg/dL (Normal) Comments: According to ATP-III Guidelines, HDL-C >59 mg/dL is considered anegative risk factor for CHD. VLDL Cholesterol Brayden 22 mg/dL (Normal) Range: 5-40 Triglycerides 110 mg/dL (Normal) Range: 0-149 Cholesterol, Total 216 mg/dL (Abnormal) Range: 100-199 14-Equ-985851:23 CBC WITH MANUAL DIFF Comments: PATIENT WAS FASTINGPERFORMED BY: [facility]Atgezn4025 [facility] [id number] Information: [id number] (52559) Immature Grans (Abs) 0.0 {x10E3/uL} (Normal) Range: [...] 3.77-5.28 WBC 3.6 {x10E3/uL} (Abnormal) Range: 4.0-10.5 6-Qhl-102912:23 KNEE,4 OR MORE VIEWS Radiology Report See [...] radiologist regarding this report, please call our 65G5orwzgvy line @ Dictated on 12/30/11 1234 by WALTER KAY MDTranscribed on 12/30/115 by ITS IMPORTSign by WALTER KAY MD on 12/30/111655 Sign by: WALTER KAY MD 32-Hpn-532376:59 Microscopic Examination Comments: PATIENT WAS FASTINGPERFORMED BY: [employer]70 [facility] [id number] Bacteria None seen (Normal) Mucus Threads Present (Normal) Epithelial Cells (non renal) 0-10 {/hpf} (Normal) Range: 0 - 10 RBC 0-3 {/hpf} (Normal) Range: 0 - 3 WBC 0-5 {/hpf} (Normal) Range: 0 - 5 :59 URINALYSIS, W/ MICRO (02317) Comments: PATIENT WAS FASTINGPERFORMED BY: [employer]70 [facility] [id number] Microscopic Examination See below: (Normal) Microscopic Examination MICRON (Normal) Comments: Microscopic follows if indicated. Nitrite, Urine Negative (Normal) Urobilinogen,Semi-Qn 0.2 mg/dL (Normal) Range: 0.0-1.9 Bilirubin Negative (Normal) Occult Blood Negative (Normal) Ketones Negative (Normal) Glucose Negative (Normal) Protein Negative (Normal) WBC Esterase Negative (Normal) Appearance Clear (Normal) Urine-Color Yellow (Normal) pH 6.0 (Normal) Range: 5.0-7.5 Specific Laporte 1.018 (Normal) Range: 1.005-1.030 :59 MICROALBUMIN: CREATININE RATIO Comments: PATIENT WAS FASTINGPERFORMED BY: [employer] [id number] (67232) AND (12170) Microalb/Creat Ratio 4.3 {mg/g_creat} (Normal) Range: 0.0-30.0 Creatinine, Urine 98.4 mg/dL (Normal) Range: 15.0-278.0 Microalbumin, Urine 4.2 ug/mL (Normal) Range: 0.0-17.0 :59 METABOLIC PANEL, COMPREHENSIVE Comments: PATIENT WAS FASTINGPERFORMED BY: [facility]Orxrxj2698 [facility] [id number] (72645) ALT (SGPT) 29 [iU]/L (Normal) Range: 0-40 [...] mg/dL (Normal) Range: 65-99 :59 LIPID PANEL (98964) Comments: PATIENT WAS FASTINGPERFORMED BY: [facility]Nawjyr6837 [facility] [id number] LDL/HDL Ratio 3.0 {ratio_units} (Normal) Range: 0.0-3.2 LDL Cholesterol Calc 146 mg/dL (Abnormal) Range: 0-99 VLDL Cholesterol Brayden 20 mg/dL (Normal) Range: 5-40 HDL Cholesterol 48 mg/dL (Normal) Comments: According to ATP-III Guidelines, HDL-C >59 mg/dL is considered anegative risk factor for CHD. Cholesterol, Total 214 mg/dL (Abnormal) Range: 100-199 Triglycerides 102 mg/dL (Normal) Range: 0-149 28-Lwr-855133:59 CBC WITH MANUAL DIFF (15980) Comments: PATIENT WAS FASTINGPERFORMED BY: [facility]Dqjrxk1737 [facility] [id number] Immature Grans (Abs) 0.0 {x10E3/uL} (Normal) Range: [...] 3.80-5.10 WBC 3.7 {x10E3/uL} (Abnormal) Range: 4.0-10.5 9-Hau-929862:15 BILAT SCRN DIGITAL & CAD Radiology Report [...] 10/04/11 1602 Sign by: Mikey Pierre MD 18-Yen-832815:06 BMP Comments: appt 04/12/11 GAP 8 (Normal) [...] Dictated on 10/01/101533 by ANANYA ORTIZTranscribed on 10/01/10 153 by INTERFACE,MCKESSONSign by ANANYA ORTIZ on 10/04/10 1405 Sign by: ANANYA ORTIZ 86-Xmm-17733:40 CBCD ABSOLUTE NEUT 1.8 3/uL (Abnormal) Range: [...] (Normal) Comments: Result: NEGATIVE COLOR YELLOW (Normal) 67-Gwr-248399:54 CBCD,SMEAR DIFF RED CELL MORPH SeeNote {NORMAL} [...] 0.2 EU/dl (Normal) Range: 0.2 - 1.0 66-Nge-550014:54 LIPID CHOL 207 mg/dL (Abnormal) Comments: <200 mg/dL Ipitohahm456-803 mg/dL Borderline>240 mg/dL High Risk HDL 46 mg/dL (Normal) Comments: Reference RangeHDL <40 mg/dL Low HDL CholesterolHDL >or= 60 mg/dL High HDL Cholesterol LDL 124 mg/dL (Normal) Range: 0-130 TRIG 186 mg/dL (Normal) Comments: Serum Triglycerides Reference IntervalNormal <150 mg/dLBorderline high 150 - 199 mg/dLHigh 200 - 499 mg/ dLVery High > or = 500 mg/dL VLDL 37 mg/dL (Normal) Range: 5-40 39-Png-607503:54 MICROALB:CRE UR MALB:CREAT <TEST NOT PERFORMED> {mg/g_CRE} (Normal) MICROALBUMIN,UR < 5.0 mg/L (Normal) UR CREAT 27.6 mg/dL (Normal) 6-Qjd-208081:53 BILAT SCRN DIGITAL & CAD Radiology Report See Note (Normal) Comments: Exam Number: [id number] MAMMOGRAM, BILATERAL SCREENING DIGITAL AND CAD HISTORYRoutine [...] werealso examined with computer- aided detection software (ImageJ[employer].). Reported By: ANANYA ORTIZ M.D. 04-Mhv-591340:28 LOWER EXT/JT ONLY (ROUTINE) Radiology Report See Note (Normal) Comments: Exam Number: [id number] CLINICAL:63-year-old female with a 5-week history of [...] degenerative arthrosis. Reported By: ISABELLA ROLLE M.D. :26 CBCD BASO% 0.3 % (Normal) Range: 0-1 [...] mg/dL VLDL 20 mg/dL (Normal) Range: 5-40 52-Zou-142524:00 BILAT SCRN DIGITAL & CAD Radiology Report See Note (Normal) Comments: Exam Number: [id number] MAMMOGRAM, BILATERAL SCREENING DIGITAL AND CAD HISTORYRoutine [...] mammograms werealso examined with computer-aided detection software ([employer], [employer].). Reported By: ANANYA ORTIZ M.D. 02-Nov-20078:51 BMP [...] 3.5-5.1 NA 142 mmol/L (Normal) Range: 136-145 18-Zkk-113791:13 Urinalysis, Office (03246) UA - BILIRUBIN Negative (Normal) UA - BLOOD Non Hemolyzed Trace (Normal) UA - GLUCOSE Negative (Normal) UA - KETONES Negative mg/dL (Normal) UA - LEUKOCYTE ESTERASE Trace (Normal) UA - NITRITE Negative (Normal) UA - PH 6.0 (Normal) UA - PROTEIN Negative mg/dL (Normal) UA - SPECIFIC GRAVITY 1.020 (Normal) URINE UROBILINGN PAKO TIMED 2 mg/dL (Normal) 58-Snv-573125:11 BILAT SCRN DIGITAL & CAD Radiology Report See Note (Normal) Comments: Exam Number: [id number] MAMMOGRAM, BILATERAL SCREENING DIGITAL AND CAD HISTORYRoutine [...] werealso examined with compute r-aided detection software ([employer].). Reported By: ANANYA ORTIZ M.D. 23-Kbt-299859:24 Microscopic Examination Comments: PATIENT NOT FASTINGPERFORMED BY: [facility]6370 [facility] [id number] Bacteria Moderate (Abnormal) Crystal Type Calcium Oxalate (Normal) Comments: Amorphous Sediment Crystals Present (Abnormal) Epithelial Cells (non renal) >10 {/hpf} (Abnormal) Range: 0 - 10 Mucus Threads Present (Abnormal) RBC None seen {/hpf} (Normal) Range: 0 - 3 WBC 0-5 {/hpf} (Normal) Range: 0 - 5 Yeast Present (Abnormal) 55-Tph-710344:24 URINALYSIS W/O MICRO (19115) Comments: PATIENT NOT FASTINGPERFORMED BY: GRUZOBZORlin6370 [facility] [id number] Appearance Clear (Normal) Bilirubin Negative (Normal) Glucose Negative (Normal) Ketones Negative (Normal) Microscopic Examination See below: (Normal) Nitrite, Urine Negative (Normal) Occult Blood Negative (Normal) pH 5.5 (Normal) Range: 5.0-7.5 Protein Negative (Normal) Specific Laporte 1.023 (Normal) Range: 1.005-1.030 Urine-Color Yellow (Normal) Urobilinogen,Semi-Qn 0.2 mg/dL (Normal) Range: 0.0-1.9 WBC Esterase 1+ (Abnormal) 58-Eom-804230:24 METABOLIC PANEL, COMPREHENSIVE Comments: PATIENT NOT FASTINGPERFORMED BY: [facility] Bnzucd2623 [facility] [id number] (07253) A/G Ratio 2.0 (Normal) Range: 1.1-2.5 Albumin, [...] Sodium, Serum 143 mmol/L (Normal) Range: 135-148 87-Fvg-442239:24 CBC WITH MANUAL DIFF (81401) Comments: PATIENT NOT FASTINGClinical Information: ADD DRAW FEE [id number] ADD J 79405 PERFORMED BY: [facility]Mwcmvo4676 [facility] [id number] Baso (Absolute) 0.0 {x10E3/uL} (Normal) Range: 0.0-0.2 [...] 11.7-15.0 WBC 3.1 {x10E3/uL} Range: 4.0-10.5 (Abnormal) :00 CULTURE, THROAT See Note (Normal) Comments: Normal throat fredo isolated. No beta-hemolyticstreptococcus isolated. 55-Hsx-120275:20 CHEST, PA AND LATERAL Radiology Report See Note (Normal) Comments: Exam Number: [id number] PA AND LATERAL CHEST HISTORYShortness of breath, [...] T PROT 7.1 g/dL (Normal) Range: 6.4-8.2 28-Fpk-86130:01 PFLIP CHOL 219 mg/dL (Abnormal) Comments: <200 [...] Plan of Care Name Dates Details Instructions Hypertension : Eprescribed prescriptions (G8553) Indication: Hypertension Mass of left lung : Eprescribed prescriptions [...] : URI Symptoms Indication: Bronchitis Planned Observations LIPID PANEL (02730)Indication: Hypercholesterolemia On: 77-Abt-620552:09 Request METABOLIC PANEL, COMPREHENSIVE (60442)Indication: Hypercholesterolemia On: :09 Request TRIGLYCERIDES (41528)Indication: Hypercholesterolemia On: : Request LDL CHOLESTEROL-DIRECT (85229)Indication: Hypercholesterolemia On: : Request Metabolic Panel, Basic (73484)Indication: Hypertension On: 80-Acz-435560:19 Request Metabolic Panel, Comprehensive (02439)Indication: Hypertension On: 93-Hmn-214097:05 Request Comments: in six months (approximately) CBC, Platelets & Auto Diff (82659)Indication: Hypertension On: : Request CALCIFIDIOL (41149) VIT D 25Indication: Preoperative clearance On: :32 Request Lipid Panel (17732)Indication: Preoperative clearance On: 51-Ggo-764998:32 Request Metabolic Panel, Comprehensive (70284)Indication: Preoperative clearance On: :32 Request TSH (55720)Indication: Preoperative clearance On: :32 Request CBC WITH MANUAL DIFF (70304)Indication: Preoperative clearance On: :32 Request CBC, Platelets & Auto Diff (72394)Indication: Alteration of body temperature On: :02 Request Metabolic Panel, Basic (72923)Indication: Hypertension On: :43 Request URINALYSIS, W/ MICRO (83917)Indication: Hypertension On: :03 Request METABOLIC PANEL, COMPREHENSIVE (46075)Indication: Hypertension On: 5-Bfe-929378:03 Request LIPID PANEL (32114)Indication: Hypertension On: :02 Request CBC with auto diff (39376)Indication: Hypertension On: 5-Zfu-806586:02 Request CALCIFEDIOL (27243)Indication: Hypertension On: 56-Guh-851344:17 Request TSH (49376)Indication: Hypertension On: 27-Vhn-473766:16 Request CBC WITH MANUAL DIFF (51164)Indication: Hypertension On: 79-Cos-067890:16 Request Lipid Panel (14699)Indication: Hypercholesterolemia On: 83-Cmj-804474:16 Request Metabolic Panel, Comprehensive (45853)Indication: Hypertension On: 59-Kxr-243537:16 Request CALCIFIDIOL (41715) VIT D 25Indication: Benign breast cyst in female On: :39 Request URINALYSIS, W/ MICRO (06158)Indication: Hypertension On: :38 Request MICROALBUMIN: CREATININE RATIO (70332) AND (04530)Indication: Hypertension On: :38 Request METABOLIC PANEL, COMPREHENSIVE (30464)Indication: Hypertension On: :38 Request LIPID PANEL (89850)Indication: Hypertension On: :38 Request CBC WITH MANUAL DIFF (91572)Indication: Hypertension On: :38 Request URINALYSIS ([id number])Indication: Hypertension On: 44-Nop-355634:12 Request CBC with manual diff ([id number])Indication: Hypertension On: :53 Request Lipid Panel ([id number])Indication: Hypertension On: :52 Request Metabolic Panel, Comprehensive ([id number])Indication: Hypertension On: :52 Request Metabolic Panel, Basic ([id number])Indication: Hypertension On: 02-Liv-382885:12 Request METABOLIC PANEL, BASIC ([id number])Indication: Hypertension On: 10-Nvh-798714:27 Request MICROALBUMIN: CREATININE RATIO ([id number]) AND ([id number])Indication: Hypercholesterolemia On: :39 Request CBC, PLATELETS & AUT DIFF ([id number])Indication: Hypercholesterolemia On: :39 Request URINALYSIS ([id number])Indication: Hypercholesterolemia On: :39 Request LIPID PANEL ([id number])Indication: Hypercholesterolemia On: :39 Request METABOLIC PANEL, COMPREHENSIVE ([id number])Indication: Hypercholesterolemia On: :39 Request URINALYSIS, W/ MICRO ([id number])Indication: Hypertension On: 76-Fxj-919834:58 Request MICROALBUMIN: CREATININE RATIO ([id number]) AND ([id number])Indication: Hypertension On: 35-Dnh-158506:58 Request METABOLIC PANEL, COMPREHENSIVE ([id number])Indication: Hypertension On: 56-Alj-265775:58 Request LIPID PANEL ([id number])Indication: Hypertension On: 61-Tkv-953569:58 Request CBC WITH MANUAL DIFF ([id number])Indication: Hypertension On: 64-Tti-480350:58 Request Rapid Strep Test, Office ([id number])Indication: Pharyngitis, acute On: :54 Request LIBBY CULTURE-OTHER ([id number])Indication: Pharyngitis, acute On: 35-Djo-80009:54 Request LIPID PANEL ([id number])Indication: Hypercholesterolemia On: 5-Pno-935878:11 Request HEPATIC FUNCTION PANEL ([id number])Indication: Hypercholesterolemia On: :11 Request Comments: in six months CBC WITH MANUAL DIFF ([id number])Indication: Hypertension On: 23-Ftb-028825:35 Request LIPID PANEL ([id number])Indication: Hypertension On: :34 Request METABOLIC PANEL, COMPREHENSIVE ([id number])Indication: Hypertension On: 74-Sif-701229:34 Request Planned Encounters Medical; [facility] - On: 15-Jan-2019 11:30 [facility] Damaris TERRY, Sade Butt MD Planned Procedures Ultrasound - ThyroidBy: Damaris TERRY, On: 11-Sep-2018 Intent Sade Butt MD DEXA SCAN AXIAL SKELETON ([id number])By: On: 06-Apr-2018 Intent Sade Ocampo MD, MD, Dana M MAMMOGRAM BREAST BILATERAL On: 16-Mar-2018 Intent SCREENING DIGITAL ([id number])By: Sade Ocampo MD, MD, Dana M EKG ([id number])By: Sade Ocampo MD On: 13-Feb-2018 Intent Sade Ocampo MD Radiology - Hand - RightBy: Damaris On: 29-Jan-2018 Intent Sade TERRY MD, Dana M Radiology - Hip - LeftBy: Damaris On: 12-May-2017 Intent Sade TERRY MD, Dana M Radiology - Lumbar SpineBy: Damaris On: 12-May-2017 Intent Sade TERRY MD, Dana M MAMMOGRAM BREAST BILATERAL On: 13-Mar-2017 Intent SCREENING DIGITAL ([id number])By: Damaris TERRY, Sade Butt MD Aerosol Treatment ([id number])By: Slarb On: 20-Jan-2016 Intent Dora RG MAMMOGRAM, SCREENING, BOTH BREAST On: 02-Oct-2015 Intent ([id number])By: Sade Ocampo MD, MD, Dana M Bone Density StudyBy: Damaris TERRY, On: 02-Oct-2015 Intent Sade Butt MD BILATERAL MAMMOGRAMS ([id number])By: On: 21-Sep-2015 Intent Sade Ocampo MD, MD, Dana M Prevnar 13 ([id number])By: Damaris TERRY, On: 17-Oct-2014 Intent Sade Butt MD BILATERAL MAMMOGRAMS ([id number])By: On: 16-Sep-2014 Intent Sade Ocampo MD, MD, Dana M Breast Screening - BilateralBy: On: 16-Sep-2013 Intent Sade Ocampo MD, MD, Dana M Rocephon Injection, 1 Gm On: 20-Nov-2012 Intent ([id number])By: Sade Ocampo MD Comments: Lot #[id number]-bilateral hipsDose- 2 gramsgiven by: IFRAH Anderson MD, Dana M THER/PROPH/DIAG INJ, SC/IM On: 20-Nov-2012 Intent ([id number])By: Sade Ocampo MD, MD, Dana M Eprescribed prescriptions On: 08-Nov-2012 Intent ([id number])By: Sade Ocampo MD, MD, Dana M PNEUM VAC ADLT/IMUMNOSPR, SBC/INTRM On: 15-Oct-2012 Intent ([id number])By: Jacquelyn Steven LPN Comments: Lot: [id number]: 32Gbl05Xos: 0.5mlRoute: IMSite: L deltoidGiven by: IFRAH Suh IMMUNIZ ADMNIN, 1 VAC, SNGL/COMBO On: 15-Oct-2012 Intent ([id number])By: Jacquelyn Steven LPN Breast Screening - BilateralBy: On: 08-Oct-2012 Intent Sade Ocampo MD, MD, Sade Barbosa IMMUNIZ ADMNIN, 1 VAC, SNGL/COMBO On: 08-Oct-2012 Intent ([id number])By: Sade Ocampo MD, MD, Sade Barbosa PNEUM VAC ADLT/IMUMNOSPR, SBC/INTRM On: 08-Oct-2012 Intent ([id number])By: Sade Ocampo MD, MD, Sade Barbosa IMMUNIZ ADMNIN, 1 VAC, SNGL/COMBO On: 08-Oct-2012 Intent ([id number])By: DAVID Nina FLU VAC, SPLIT, >3 YEARS, INTRAMUSC On: 08-Oct-2012 Intent ([id number])By: DAVID Nina MRI - Knee(s) - LeftBy: Donovan KIDD, On: 30-Dec-2011 Intent Alissa Garcia PHYSICAL THERAPY EVALUATION On: 30-Dec-2011 Intent ([id number])By: Alissa Man CNP Doppler Ultrasound OtherBy: Donovan On: 30-Dec-2011 Intent Alissa KIDD Radiology - Knee - LeftBy: Donovan On: 30-Dec-2011 Intent Alissa KIDD Breast Screening - BilateralBy: On: 04-Aug-2011 Intent Sade Ocampo MD, MD, Dana M Eprescribed prescriptions On: 10-Jan-2011 Intent ([id number])By: Sade Ocampo MD, MD, Dana M EKG ([id number])By: DAVID Nina On: 12-Oct-2010 Intent MAMMOGRAM, SCREENING, BOTH BREASTS On: 20-Sep-2010 Intent ([id number])By: Haley Chaparro DO EKG ([id number])By: Sade Ocampo MD On: 17-Sep-2009 Intent Sade Ocampo MD MAMMOGRAM, SCREENING, BOTH BREASTS On: 17-Sep-2009 Intent ([id number])By: Sade Ocampo MD, MD, Dana M MAMMOGRAM, SCREENING, BOTH BREASTS On: 23-Sep-2008 Intent ([id number])By: Lara Iglesias Nuclear Stress Test/Stress On: 19-Oct-2007 Intent SPECT/TreadmillBy: Haley Chaparro DO EKG ([id number])By: Haley Chaparro DO On: 19-Oct-2007 Intent Comments: ekg showed normal sinus rhythym, normal axis, no acute st/t wave changes nsivcd Bio Z ([id number])By: Haley Chaparro DO On: 19-Oct-2007 Intent Comments: good paremeterss IMMUNIZ ADMNIN, 1 VAC, SNGL/COMBO On: 22-Aug-2007 Intent ([id number])By: Shruthi Louis LPN PNEUM VAC ADLT/IMUMNOSPR, SBC/INTRM On: 22-Aug-2007 Intent ([id number])By: Shruthi Louis LPN Comments: lot # [id number] exp- 09/06 LDLT patient tolerated well Flu Vaccine, Split IM ([id number])By: On: 22-Aug-2007 Intent Shruthi Louis LPN Comments: lot #[id number] exp- 02/04 RDLT patient tolerated well SPECIMEN HNDLNG/TRNSPRT, OFFC > LAB On: 18-Jun-2007 Intent ([id number])By: NAYELI DIAMOND CNP Pulse Oximetry ([id number])By: Maico On: 18-Jun-2007 Intent DAVID Radiology - Chest- PA and LatBy: On: 09-Feb-2007 Intent Lacey Sherman DO Aerosol Treatment ([id number])By: Lane On: 09-Feb-2007 Lacey Walker DO Comments: more air exchange-- softer rhonchi no [...] glutealGiven by: Magalys Michael LPN Inhaler Demo ([id number])By: DARA KIDD, On: 07-Feb-2007 Intent NAYELI Aerosol Treatment ([id number])By: DARA On: 07-Feb-2007 Intent NAYELI KIDD Comments: moderate improvement after treatment--still tons of wheezing diffuse inspir and exp IMMUNIZ ADMNIN, 1 VAC, SNGL/COMBO On: 13-Oct-2006 Intent ([id number])By: Sade Ocampo MD, MD, Dana M FLU VAC, SPLIT, >3 YEARS, INTRAMUSC On: 13-Oct-2006 Intent ([id number])By: Sade Ocampo MD, MD, Dana M MAMMOGRAM, SCREENING, BOTH BREASTS On: 13-Oct-2006 Intent ([id number])By: Sade Ocampo MD, MD, Dana M EKG ([id number])By: Sade Ocampo MD On: 13-Oct-2006 Intent Sade Ocampo MD Bio Z ([id number])By: Sade Ocampo MD On: 13-Oct-2006 Intent Sade Ocampo MD Planned Medications INJECTION, CEFTRIAXONE SODIUM, PER 250 MG Ordered: 20-Nov-2012 Pending Sade Ocampo MD, MD, Dana M Instructions Name Dates Details Hypertension : How to access health information online Indication: Hypertension Hypertension : How to access health information online - Detail Indication: Hypertension Hypertension : Patient Instructions Indication: Hypertension Mass of left lung : How to [...] diagnosis and treatment Indication: Pharyngitis, acute Encounters Office Visit On: 11-Sep-2018 11:29 Encounter Reason: Follow up for chronic medical issues - The patient feels well with minor complaints and has decreased energy level. Patient has been compliant with instructions. Current medication use: no side effects End: 11-Sep-2018 13:13 and compliant with dosing regimen. Patient sleeps 7 hours per night. Impact of disease: emotional impact-mild. Nutrition: balanced diet and supplemental vitamins. The medical issues the patient is follo wing up for include cardiac issues, gastric reflux, high blood pressure, osteoarthritis and other (DDD, IBS, hx. mass of lung).Encounter Diagnosis: BMI 30.0- 30.9,adult, Current nonsmoker (Renamed from Current non-smoker), Hypertension, Leukopenia, unspecified type, Multilevel degenerative disc disease, Family history of dementia, Abnormal RBC indices, GERD (gastroesophageal reflux disease), Irritable bowel syndrome (564.1), Osteoarthritis, chronic, Allergic rhinitis, Mass of left lung, Coronary artery disease, Carotid stenosis, Obesity, unspecified, Postmenopausal (Renamed from Postmenopausal status), Hypercholesterolemia, Inflamed skin tag, Rash, Neck discomfort, Influenza vaccination declined (Renamed from Refused influenza vaccine) [facility] Phone Encounter On: 04-Jun-2018 14:40 Encounter Diagnosis: [...] 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 The patient h as noticed nothing from the geriatic depression scale. Other providers contributing to the patient's care are beam machine operator, gastrologist (Dr. Pabon ) and other: ([facility]Encounter Diagnosis: Encounter for Medicare annual wellness [...] Nutrition: balanced diet and supplemental vitamins. The ri dical issues the patient is following up [...] [facility] End: 13-Sep-2006 7:17 Payers MedicareAetna/mcare supplement Harmeet garcia guarantor
--- OUTSIDE RECORDS SUMMARY | 2019-01-17 14:45 | XMS RPT_ITS | Continuity of Care Document ---
:1945 Author Organization [facility] Address [address] [facility] [address] [place] [address] Phone Care Team Providers Name Role Phone Sade Ocampo MD Unavailable Sade Oacmpo MD Unavailable Teodoro Sanchez Unavailable Josefina Parsons [...] 0 days Quantity: 60 {Tablet} Refills: 6 Ordered:24-Sep-2018 Damaris TERRY, Sade Vasquez MD Start : 24-Sep-2018 Active Pantoprazole Sodium 40 MG Oral Tablet Delayed Release 1 (one) Tablet DR qd for 0 days Quantity: 60 {Tablet} Refills: 4 Ordered:05-Mar-2018 Damaris TERRY, Sade Vasquez MD Start : 05-Mar-2018 Active Zetia 10 MG Oral Tablet 1 (one) Tablet in am for 0 days Quantity: 60 {Tablet} Refills: 6 Ordered:24-Sep-2018 Damaris TERRY, Sade Vasquez MD Start : 24-Sep-2018 Active ALTACE, 10MG (Oral Capsule) 1 Capsule [...] Quantity: 30 {Tablet} Refills: 6 Ordered:01-Oct-2012 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, 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 L Start : 07-Sep-2012 End : 01-Oct-2012 Inactive Comments:LEONARDO DIOVAN HCT, 80-12.5MG (Oral Tablet) 1 Tablet qd for 0 days Quantity: 60 {Tablet} Refills: 4 Ordered:01-Oct-2012 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, 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 L Start : 07-Sep-2012 End : 01-Oct-2012 Inactive DRYSOL, 20% (External Solution) apply once daily [...] days Quantity: 30 {Capsule} Refills: 0 Ordered:19-Nov-2013 DAIVD Nina Start : 20-Nov-2012 End : 19-Nov-2013 [...] : 06-Nov-2008 End : 30-Mar-2009 Inactive NYSTATIN, [id number]/GM (External Powder) uad Powder bid to affected [...] Comments: repaired Tonsillectomy Completed Date Value Details 19-Sep-2018 Thyroid Result: Comments: See Note; NOTES: [facility] Imaging Services [address] [place] [address] Thyroid MR#: [id number] Acct: [id number] Name: SACHIN SCHUSTER Rep #: [id number] : [birth year] F 72 From: Hugo Ventura MD PCP: Sade Ocampo MD Status: REG CLI Study: Thyroid Date of Exam: 09/19/18 Exam# [id number] Ordering Dr: Sade Ocampo MD STUDY: THYROID ULTRASOUND REASON FOR EXAM: Female, 72 years old. Difficulty swallowing TECHNIQUE: Ultrasound evaluation of the thyroid was performed with real-time and static rashid-scale imaging. COMPARISON: None. FINDINGS: RIGHT LOBE: The right lobe of the thyroid gland measures 5.3 x 2.1 x 2.0 cm. There is a homogeneous echotexture. Solitary calcification of the upper right thyroid lobe measures 3 mm. N o soft tissue nodules. LEFT LOBE: The left lobe of the thyroid gland measures 4.3 x 2.1 x 1.5 cm. There is a homogeneous echotexture. There are no demonstrated solid, cystic or complex lesions. ISTHMU S: The isthmus measures 3.0 mm. The regional lymph nodes are normal. US/Thyroid IMPRESSION: 1. No solid or cystic nodules. 2. Enlarged right th yroid lobe. 3. Probable dystrophic calcification of the right thyroid lobe, doubtful significance. Electronically Signed: Hugo Ventura MD at 9:15 EST , Service support [phone], CC: Sade Ocampo MD Bay Stocker: Signed 24-May-2018 Chest PA and Lateral Result: Comments: See Note; NOTES: [facility] Imaging Services [address] [place] [address] Chest PA and Lateral MR#: [id number] Acct: [id number] Name: SACHIN SCHUSTER Rep #: [id number] : 1945 F 72 From: Jose Elias Campbell MD PCP: Sade Ocampo MD Status: REG CLI Study: Chest PA and Lateral Date of Exam: 05/24/18 Exam# [id number] Ordering Dr: Teodoro Sanchez MD STUDY: X-RAY TROY ST REASON FOR EXAM: Female, 72 years old. [...] CC: Sade Ocampo MD; Teodoro Sanchez MD Bay Stocker: Signed 30-Apr-2018 PET/CT Tumor Base -Thigh Init Result: Comments: See Note; NOTES: [facility] Imaging Services [address] [place] [address] PET/CT Tumor Base -Thigh Init MR#: [id number] Acct: [id number] Name: SACHIN SCHUSTER Rep # : [id number] : 1945 F 72 From: Walter Monzon DO PCP: Sade Ocampo MD Status: REG CLI Study: PET/CT Tumor Base -Thigh Init Date of Exam: 04/30/18 Exam# [id number] Ordering Dr: Sade Ocampo MD EXAMINATION: FDG [...] not fulfill quantitative criteria for viable neoplasm. (Álvarez et al, Annals of Internal Medicin e, [...] leukocytes associated with atherosclerotic plaque formation. (Virginia cruz al, Clinical Nuclear Medicine 29:93, 2003). Electronic Signature Prerna Chanel Signed: Walter Monzon DO at 23:12 EDT Tel , Service support , CC: Sade Ocampo MD Bay Stocker: Signed 24-Apr-2018 Dexa Bone Density Study Result: Comments: See Note; NOTES: [facility] Imaging Services [address] [place] [address] Dexa Bone Density Study MR#: [id number] Acct: [id number] Name: SACHIN SCHUSTER Rep #: [id number] : 1945 F 72 From: Mikey Pierre MD PCP: Sade Ocampo MD Status: REG CLI Study: Dexa Bone Density Study Date of Exam: 04/24/18 Exam# [id number] Ordering Dr: Sade Ocampo MD STUDY: DUAL [...] Mikey Pierre MD at 14:05 EDT Tel [phone], Service support , CC: Sade Ocampo MD Bay Stocker: Signed 19-Apr-2018 Downtime Report Result: Comments: See Note; NOTES: [facility] Medical Records Department [address] [place] [address] Downtime Report MR#: [id number] Acct: [id number] Name: SACHIN SCHUSTER Rep #: [id number] : 1945 72 From: Donte De Jesus PCP: Sade Ocampo MD Status: REG CLI This patient was seen during an EMR downtime April 02, 2018 - April 09, 2018. This patient may have a combination of p aper and electronic documentation or all paper documentation. All documentation is viewable within the e-chart portion of [employer] for each patient visit. 17-Apr-[address] w/CCTA Result: Comments: See Note; NOTES: [facility] Imaging Services [address] [place] [address] w/CCTA MR#: [id number] Acct: [id number] Name: SACHIN SCHUSTER Rep #: [id number] : 1945 F 72 From: Mikey Pierre MD PCP: Sade Ocampo MD Status: REG CLI Study: Limited Chest CT w/CCTA Date of Exam: 04/17/18 Exam# [id number] Ordering Dr: Sade Ocampo MD STUDY: CT [...] Mikey Pierre MD at 15:38 EDT Tel [phone], Service support , CC: Sade Ocampo MD Bay Stocker: Signed 09-Apr-2018 SCREENING MAMM (CAD), BILAT Result: Comments: See Note; NOTES: [facility] Imaging Services [address] [place] [address] SCREENING MAMM (CAD), BILAT MR#: [id number] Acct: [id number] Name: SACHIN SCHUSTER Rep #: [id number] : 1945 F 72 From: Valentín Gross MD PCP: Sade Ocampo MD Status: [facility] Study: SCREENING MAMM (CAD), BILAT Date of Exam: 04/09/18 Exam# [id number] Ordering Dr: Sade Ocampo MD MAMM OGRAPHY - BILATERAL SCREENING REASON FOR EXAM: Female, 72 years old. Routine annual screening examination. PERTINENT HISTORY: FAM HX PAT GMA AGE 79 LOST 10# NO SX RT CYST ASPIRATION IN DR MORROW 2013 TECHNIQUE: Digital bilateral breast starr (3D [...] delay biopsy of a clinically suspicious abnormality. [id number] Electronically Signed: Valentín Gross MD at 14:15 EDT Tel , Service support [phone], CC: Sade Ocampo MD Bay Stocker: Signed 30-Jan-2018 Hand Min 3 Views Result: Comments: See Note; NOTES: [facility] Imaging Services [address] [place] [address] Hand Min 3 Views MR#: [id number] Acct: [id number] Name: SACHIN SCHUSTER Rep #: [id number] D OB: 1945 F 72 From: Fernando Oliva DO PCP: Sade Ocampo MD Status: REG CLI Study: Hand Min 3 Views Date of Exam: 01/30/18 Exam# [id number] Ordering Dr: Sade Ocampo MD STUDY: X-RAY [...] Service support , CC: Sade Ocampo MD Bay Stocker: Signed 18-Dec-2017 Urgent Care Visit Report Result: Comments: See Note; NOTES: [facility] [address] [place] [address] OFFICE VISIT Date of Service: 12/18/17 MR#: [id number] Acct: [id number] Name: SACHIN SCHUSTER Kendra p #: [id number] : 1945 Provider: Kyle JIMENEZ Age/Sex: 72/F Location: [facility] Status: Signed Intake Vital Signs12/18/17 Height 5 ft 2 in 12/18/17 Weight: 170 lb 8 oz Intake Visit Reasons: SO RE THROAT Ladler Required: No Accompanied by: None Is patient in pain?: No Allergies No Known Allergies Allergy (Unverified 12/18/17 11:08) Medications losartan 100 mg-hydrochlorothiazide 12. 5 mg tablet PO 60 Days #60 12/18/17 [History Confirmed 12/18/17] pantoprazole 40 mg tablet,delayed release PO 60 Days #60 12/18/17 [History Confirmed 12/18/17] PFS Medical History Arthritis (Acute) knee pain (Acute) [...] pattern Exam Const General: cooperative, healthy appearing [facility] Head: normal to inspection Ears: hearing grossly [...] the above. This note was generated with [employer] software. It may contain incorrect words, spelling, [...] with Pelvis Result: Comments: See Note; NOTES: [facility] Imaging Services [address] [place] [address] Verdana 4d Hip 2-3 Views with Pelvis MR#: [id number] Acct: [id number] Name: SACHIN SCHUSTER Rep #: [id number] : 1945 F 71 From: Mikey Pierre MD PCP: Sade Ocampo MD Status: REG CLI Study: Hip 2-3 Views with Pelvis Date of Exam: 05/12/17 Exam# [id number] Ordering Dr: Kodi Ocampo MD STUDY: X-RAY [...] Mikey Pierre MD at 12:44 EDT Tel [phone], Service support , CC: Sade Ocampo MD Bay Stocker: Signed 12-May-2017 L/S Spine Min 4 Views Result: Comments: See Note; NOTES: [facility] Imaging Services [address] [place] [address] Verdana 4d L/S Spine Min 4 Views MR#: [id number] Acct: [id number] Name: SACHIN SCHUSTER Kendra p #: [id number] : 1945 F 71 From: Mikey Pierre MD PCP: Sade Ocampo MD Status: REG CLI Study: L/S Spine Min 4 Views Date of Exam: 05/12/17 Exam# [id number] Ordering Dr: Sade Ocampo MD STUDY: X-RAY [...] Pierre MD a t 12:43 EDT Tel [phone], Service support , CC: Sade Ocampo MD Bay Stocker: Signed 29-Mar-2017 Breast Limited Unilateral Result: Comments: See Note; NOTES: [facility] Imaging Services [address] [place] [address] Verdana 4d Breast Limited Unilateral MR#: [id number] Acct: [id number] Name: SACHIN SCHUSTER Rep #: [id number] : 1945 F 71 From: Mikey Pierre MD PCP: Sade Ocampo MD Status: REG CLI Study: Breast Limited Unilateral Date of Exam: 03/29/17 Exam# [id number] Ordering Dr: Kodi Ocampo MD STUDY: ULTRASOUND [...] Mikey Pierre MD at 15:51 EDT Tel [phone], Service support , CC: Sade Ocampo MD Bay Stocker: Signed 22-Mar-2017 SCREENING MAMM (CAD), BILAT Result: Comments: See Note; NOTES: [facility] Imaging Services [address] [place] [address] Verdana 4d SCREENING MAMM (CAD), BILAT MR#: [id number] Acct: [id number] Name: HELLEN SCHUSTER Rep #: [id number] : 1945 F 71 From: Mikey Pierre MD PCP: Sade Ocampo MD Status: REG CLI Study: SCREENING MAMM (CAD), BILAT Date of Exam: 03/22/17 Exam# [id number] Ordering Dr: Sade Ocampo MD MAMMOGRAPHY - [...] delay biopsy of a clinically suspicious abnormality. [id number] Electronically Signed: Mikey Pierre MD at 8:05 EDT Tel [phone], Service support , CC: Sade Ocampo MD Bay Stocker: Signed 21-Jun-2016 PT D/C Summary (1) Result: Comments: See Note; NOTES: [facility] [address] [place] [address]. 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 Thank you for the referral of this patient. Sincerely, An carmel Cunningham <Electronically signed by Dora Cunningham MPT> 06/21/16 6660 CC: RADHA COTTRELL; Sade Ocampo MD; OUT OF [facility] DOCTOR Signed 25-May-2016 Re-Evaluation - PT (1) Result: Comments: See Note; NOTES: [facility] [facility] [place] [address] Fax REEVALUATION / ME DICARE RECERTIFICATION [place] 4d PHYSICAL THERAPY MR#: [id number] Acct: [id number] Name: SACHIN SCHUSTER Rep #: [id number] : 1945 70 From: Dora DODSON Referring [...] do not hesitate to contact me at [phone] by phone or if you have questions [...] - PT Result: Comments: See Note; NOTES: [facility] [address] [place] [address]. [address] [place] [address] Fax REHABILITATION SE RVICES INITIAL EVALUATION MR#: [id number] Acct: [id number] Name: SACHIN SCHUSTER Rep #: [id number] : 1945 70 From: Dora Cunningham MPT [...] Danyelle. Pt reports that 3 weeks ago long pt had menisuc surgery. Pt reports that she has a lot of arthritis and suggested PT. She reports that her knee is still sore and stiff. Pt has trouble with s tanding for long periods of time and causes increase stiffness and pain. Pt has not tried stairs. Pt has been walking in the house or at the MD to see her mom. Pt had trouble [...] to be FAXED BACK to us at [phone] for Medicare purposes. Please let me kn [...] Only (Routine) Result: Comments: See Note; NOTES: [facility] Imaging Services [address] [place] [address] Verdana 4d Lower Ext Joint Only (Routine) MR#: [id number] Acct: [id number] Na me: SACHIN SCHUSTER Rep #: [id number] : 1945 F 70 From: Hermann Inman MD PCP: Sade Ocampo MD Status: REG CLI Study: Lower Ext Joint Only (Routine) Date of Exam: 03/09/16 Exam# [id number] O jhoan Dr: Marck Armendariz STUDY: MRI [...] FACR at 8:04 EDT , Service support [phone], CC: MARCK ARMENDARIZ; Sade Ocampo MD Bay Stocker: Signed 28-Oct-2015 Bilat Scrn Digital AND CAD Result: Comments: See Note; NOTES: [facility] Imaging Services [address] [place] [address] Verdana 4d Bilat Scrn Digital AND CAD MR#: [id number] Acct: [id number] Name: SACHIN SCHUSTER Rep #: [id number] : 1945 F 69 From: Jose Elias Campbell MD PCP: Sade Ocampo MD Status: REG CLI Study: Bilat Scrn Digital AND CAD Date of Exam: 10/28/15 Exam# [id number] Ordering Dr: Sade Ocampo MD MAMMOGRAPHY - [...] delay biopsy of a clinically suspicious abnormality. [id number] Electronically Betsy d: Elijah Campbell MD at 11:23 EST Tel , Service support [phone], CC: Sade Ocampo MD Bay Stocker: Signed 28-Oct-2015 Dexa Bone Density Study (HP) Result: Comments: See Note; NOTES: [facility] Imaging Services [address] [place] [address] Verdana 4d Dexa Bone Density Study () MR#: [id number] Acct: [id number] Name : SACHIN SCHUSTER Rep #: [id number] : 1945 F 69 From: Mikey Pierre MD PCP: Sade Ocampo MD Status: REG CLI Study: Dexa Bone Density Study (HP) Date of Exam: 10/28/15 Exam# [id number] O lori Dr: Sade Ocampo MD STUDY: DUAL ENERGY [...] Mikey Pierre MD at 8:33 EST Tel [phone], Service support [phone], CC: Sade Ocampo MD Bay Stocker: Signed 27-Oct-2014 Elizabeth Christiansen Digital AND CAD Result: Comments: See Note; NOTES: [facility] Imaging Services [address] [place] [address] Breast Imaging Report MR#: [id number] Acct: [id number] Name: Leigh Ann SCHUSTER Rep #: [id number] : 1945 F 68 From: Jose Elias Campbell MD PCP: Sade Ocampo MD Status: REG CLI Study: Elizabeth Christiansen Digital AND CAD Date of Exam: 10/27/14 Exam# [id number] Ordering Dr: Sade Ocampo MD MAMM OGRAPHY [...] Elijah Campbell MD at 14:42 EST Tel [phone], Service supp ort [phone], CC: Sade Ocampo MD Bay Stocker: Signed 17-Oct-2014 EKG (17238) Comments: see scanned document of test done to see results reviewed today with patient Result: [MEASUREMENTS ANALYSIS] Date of Test: 10/17/2014 10:58:06; Heart Rate: 77; ID Interval: 142; QRS: 96; QT Interval: 382; Corrected QT Interval (QTc): 411; P Wave Dyer: 43; QRS Wave Dyer: 10; T Wave Dyer: -1; Blood Pressure: 120/80 [ECG DIAGNOSTIC STATEMENTS] Date of Test: 10/17/2014 10:58:06; Summary: Sinus Rhythm WITHIN NORMAL LIMITS 21-May-2014 Breast Unilateral Result: Comments: See Note; NOTES: [facility] Imaging Services [address] [place] [address] Ultrasound Report MR#: [id number] Acct: [id number] Name: Leigh Ann SCHUSTER Rep #: [id number] : 1945 F 68 From: Valentín Gross MD PCP: Sade Ocampo MD Status: REG CLI Study: Breast Unilateral Date of Exam: 05/21/14 Exam# [id number] Ordering Dr: Teodoro Humphries MD STUDY: ULTRAS [...] at 17:35 EDT Tel , Service support [phone], CC: Sade Ocampo MD; Teodoro Humphries MD Bay Stocker: Signed 25-Feb-2014 Upper Ext Joint Only(Routine) Result: Comments: See Note; NOTES: [facility] Imaging Services [address] [place] [address] MRI Report MR#: [id number] Acct: [id number] Name: Leigh Ann SCHUSTER Rep #: [id number] : 1945 F 68 From: Hossein Matos MD PCP: Sade Ocampo MD Status: REG CLI Study: Upper Ext Joint Only(Routine) Date of Exam: 02/25/14 Exam# [id number] Ordering Dr: Christian Beard DO STUDY: MRI [...] MD at 11:58 EDT , Service support [phone], CC: Sade Ocampo MD; Christian Beard Bay Stocker: Signed 14-Feb-2014 Shoulder min 2 Views Result: Comments: See Note; NOTES: [facility] Imaging Services [address] [place] [address] Radiology Report MR#: [id number] Acct: [id number] Name: Leigh Ann SCHUSTER Rep #: [id number] : 1945 F 68 From: Mikey Pierre MD PCP: Sade Ocampo MD Status: REG CLI Study: Shoulder min 2 Views Date of Exam: 02/14/14 Exam# [id number] Ordering Dr: Christian Beard DO STUDY: X [...] Mikey Pierre MD at 14:06 EDT Tel [phone], Service support [phone], 0055 RAD/Shoulder min 2 Views IMPRESSION: Degenerative changes of the acromioclavicular joint. Electronically Signed: Mikey Pierre MD at 14:06 EDT Tel [phone], Service support [phone], CC : Sade Ocampo MD; Christian Beard Bay Stocker: Signed 16-Oct-2013 Breast Unilateral Result: Comments: See Note; NOTES: [facility] Imaging Services [address] [place] [address] Ultrasound Report MR#: [id number] Acct: [id number] Name: Leigh Ann SCHUSTER Rep #: [id number] : 1945 F 67 From: Mikey Pierre MD PCP: Sade Ocampo MD Status: REG CLI Study: Breast Unilateral Date of Exam: 10/16/13 Exam# [id number] Ordering Dr: Sade Ocampo MD STUDY: ULT [...] M.D. at 16:45 EST , Service support [phone], CC: Sade Ocampo MD Bay Stocker: Signed 11-Oct-2013 Bilat Scrn Digital & CAD Result: Comments: See Note; NOTES: [facility] Imaging Services [address] [place] [address] Breast Imaging Report MR#: [id number] Acct: [id number] Name: Leigh Ann SCHUSTER Rep #: [id number] : 1945 F 67 From: Mikey Pierre MD PCP: Sade Ocampo MD Status: REG CLI Exam# [id number] Ordering Dr: Sade Ocampo MD MAMMOGRAPHY - [...] M.D. at 15:33 EST , Service support [phone], CC: Sade Ocampo MD Bay Stocker: Signed Immunization Name Dates Details Influenza (3 years and up) on: 13-Oct-2006 Influenza (3 years and up) on: 22-Aug-2007 Comments: lot #[id number] exp- 02/04 RDLT patient tolerated well Pneumococcal [...] Living Situation: Lives with spouse. Comments: , Cheondoism andimportant SARA schuster [phone] Status: Active No Caffeine Use Status: Active [...] smoker Vital Signs Date Test Result Details 86-Exe-187501:30 Comments: 130/70's at home Temperature 97.9 f [...] 84 /min Comments: Pattern: Regular Respiration Rate 04026 /min Comments: Pattern: Unlabored O2 SAT 98 [...] kg/m2 Body Surface Area Calculated 1.85 m2 26-Ees-976467:05 Temperature 97.6 f Comments: Method: Temporal Pulse [...] 0.00 cm Results Date Description Value Details :09 LDL, Direct Comments: Comments: [facility] (refer to report for specific site)refer to report for address and phone number; 09-11-18 db COMMENT Test not performed (Normal) LDL,DIR 307133 147 mg/dL (Abnormal) Range: 0-99 Comments: Performed at: [facility] [address] [id number] Director: Steve Carey PhD, Phone: [phone] 2-Stc-875057:09 Triglycerides Comments: Comments: [facility] [address] [place], [address] TRIG 117 mg/dL (Normal) Comments: The drugs N-Acetylcysteine and Metamizole may falselydepress this assay.Serum Triglycerides Reference Interval Normal <150 mg/dL Borderline high 150 - 199 mg/dL High 200 - 499 mg/dL Very High > or = 500 mg/dL 65-Vjm-278798:27 Carcinoembryonic Antigen Comments: [facility] (refer to report for specific site)refer to report for address and phone number CEA 1.4 ng/mL (Normal) Range: 0.0-4.7 Comments: Caroline ECLIA methodology Nonsmokers <3.9 Smokers <5.6Performed at: [address] [id number] Director: Steve Carey PhD, Phone: [phone] 84-Fqj-488322:27 CRP Comments: [facility] [address] [place], [address] C-REACTIVE PROT 5.31 mg/L (Abnormal) Range: 0.0-3.0 Comments: C-Reactive Protein (CRP) provides useful information for thediagnosis, therapy and monitoring of inflammatory processesand associated diseases. For the evaluation of Relative Riskfor Cardiovascular Dise ase, a High Sensitivity CRP (HSCRP)should be ordered. :27 Erythrocyte Sed Rate Comments: [facility] [address] [place], [place], [id number] SED RATE 3 mm/h (Normal) Range: 0-30 16-Lwu-574239:27 URINE HISTOPLASMA ANTIGEN Comments: [facility] (refer to report for specific site)refer to report for address and phone number UR Comments: TEST RESULT LIMITSHistoplasma Gal'krys Ag Ur <0.5 <0.5 ng/mLDisclaimer: This test was developed and its performance characteristics determined by [facility] (Normal). It has not been cleared or approved by the Food and Drug Administration. TESTING PERFORMED AT [facility]. ORIGINAL REPORT ON FILE IN LAB AG CONTAINS ADDITIONAL TEST SITE INFORMATION. 3-Jox-733568:26 Metabolic Panel, Basic (79112) Comments: PATIENT NOT FASTINGPERFORMED BY: [facility] [id number] Calcium 10.0 mg/dL (Normal) Range: 8.7-10.3 Carbon [...] 8-27 Glucose 113 mg/dL (Abnormal) Range: 65-99 46-Voy-570654:23 Metabolic Panel, Comprehensive Comments: PATIENT NOT FASTINGPERFORMED BY: [facility] [id number] (74324) ALT (SGPT) 23 [iU]/L (Normal) Range: 0-32 [...] 8-27 Glucose 94 mg/dL (Normal) Range: 65-99 09-Zxt-021819:23 CBC WITH MANUAL DIFF Comments: PATIENT NOT FASTINGPERFORMED BY: [facility] [id number] Information: NURSE DRAW; fu DB 6-8 (18276) Immature Grans (Abs) 0.0 {x10E3/uL} (Normal) Range: [...] 3.77-5.28 WBC 3.2 {x10E3/uL} (Abnormal) Range: 3.4-10.8 01-Gvo-171456:23 MICROALBUMIN: CREATININE RATIO Comments: PATIENT NOT FASTINGPERFORMED BY: [facility] [id number] (56265) AND (05056) Alb/Creat Ratio 5.3 {mg/g_creat} (Normal) Range: 0.0-30.0 Albumin, Urine 3.7 ug/mL (Normal) Creatinine, Urine 70.0 mg/dL (Normal) 52-Sln-001858:23 URINALYSIS (62946) Comments: PATIENT NOT FASTINGPERFORMED BY: [facility] [id number] Microscopic Examination MICNIP (Normal) Comments: Microscopic not indicated and not performed. Nitrite, Urine Negative (Normal) Urobilinogen,Semi-Qn 0.2 mg/dL (Normal) Range: 0.2-1.0 Bilirubin Negative (Normal) Occult Blood Negative (Normal) Ketones Negative (Normal) Glucose Negative (Normal) Protein Negative (Normal) WBC Esterase Negative (Normal) Appearance Clear (Normal) Urine-Color Yellow (Normal) pH 6.5 (Normal) Range: 5.0-7.5 Specific Douds 1.018 (Normal) Range: 1.005-1.030 84-Lfs-602760:30 Culture, R/O Strep A Comments: [facility] [address] [place], [place], [address] CUSTREPA See Note (Normal) Comments: AVERY CultureNo Group A Beta Streptococcus isolated. * This cultures intended use is to screen for Beta Streptococcus A only. All other pathogens and potential pathogens will not be screened for or rep orted. If a complete workup of all potential pathogens is indicated an order for a routine throat culture is required. 4-Yln-000386:10 ANTINUCLEAR ANTIBODIES DIRECT Comments: [facility] (refer to report for specific site)refer to report for address and phone number MILTON-DIRECT Negative (Normal) Comments: Performed at: [address] [id number] Director: Steve Carey PhD, Phone: [phone] 2-Ged-991499:10 Ferritin Comments: [facility] [address] [place], [place], [address] FERRITIN 251 ng/mL (Normal) Range: 8-252 85-Lku-690758:40 Methymalonic Acid, Serum Comments: today; PATIENT NOT FASTINGPERFORMED BY: [address] [id number] BY: [address] [id number] (24048) Methylmalonic Acid, Serum 198 nmol/L (Normal) Range: 0-378 72-Ovt-130609:40 Vitamin B-12 Comments: today; PATIENT NOT FASTINGPERFORMED BY: [address] [id number] BY: [address] [id number] (cyanocobalamin) (13315) Vitamin B12 353 pg/mL (Normal) Range: 211-946 80-Dfh-023442:23 HEPATITIS C ANTIBODY Comments: PATIENT NOT FASTINGPERFORMED BY: [address] [id number] Information: NURSE DRAW (08558) Hep C Virus Ab <0.1 {s/co_ratio} (Normal) Range: 0.0-0.9 Comments: Negative: < 0.8 Indeterminate: 0.8 - 0.9 Positive: > 0.9 . The CDC recommends that a positive HCV antibody result be followed up with a HCV Nucleic Acid Amplification test (506848). 54-Asa-37992:57 Alanine Aminotransferas (SGPT) Comments: DR.CHARLICK VERDIN.[facility] [address] [place], [address] ALT 32 U/L (Normal) Range: 12-78 :57 ALB/GLOB Ratio Comments: DR.CHARLICK VERDIN.[facility] [address] [place], [address] A/G 1.2 {RATIO} (Normal) Range: 0.9-2.4 :57 Albumin, Serum Comments: DR.CHARLICK VERDIN.[facility] [address] [place], [address] ALB 3.7 g/dL (Normal) Range: 3.4-5.0 :57 Alkaline Phosphatase Comments: DR.CHARLICK VERDIN.[facility] [address] [place], [address] ALK P 93 U/L (Normal) Range: 50-136 :57 AST(SGOT) Comments: DR.CHARLICK VERDIN.[facility] [address] [place], [address] AST 22 U/L (Normal) Range: 15-37 :57 Basic Metabolic Profile (BMP) Comments: DR.CHARLICK VERDIN.[facility] [address] [place], [address] GAP 8 (Normal) Range: 5-15 CO2 26.0 [...] Range: 70-110 :57 Bilirubin, Total Comments: DR.CHARLICK VERDIN.[facility] [address] [place], [place], [address] T BILI 0.50 mg/dL (Normal) Range: 0.20-1.00 :57 Globulin Comments: DR.CHARLICK VERDIN.[facility] [address] [place], [place], [address] GLOB 3.1 g/dL (Normal) Range: 2.3-3.5 :57 Lipid Profile Comments: [facility]ADRAAden[facility] [address] [place], [place], [address] VLDL 17 mg/dL (Normal) Range: 5-40 LDL [...] High Risk :57 Protein, Total Comments: DR.CHARLICK VERDIN.[facility] Kw[address]ap[address] [place], [place], [address] T PROT 6.8 g/dL (Normal) Range: 6.4-8.2 :57 Thyroid Stim Hormone (TSH) Comments: DR.CHARLICK VERDIN.[facility] [address] [place], [address] TSH 1.36 {uIU/mL} (Normal) Range: 0.358-3.74 17-Nzc-029018:40 Rapid Flu (09308 x 2) Comments: neg Influenza A Ag negative (Normal) :47 CBC W/Diff, Automated Comments: [facility] [address] [place], [address] ; [address] Absolute Lymph 1.25 [...] Range: 4.4-11.0 :47 Comprehensive Metabolic Profil Comments: [facility] [address] [place], [place], [address] GAP 9 (Normal) Range: 5-15 CO2 25.0 [...] (Normal) Range: 70-110 :47 Lipid Profile Comments: [facility] [address] [place], [place], [address] VLDL 28 mg/dL (Normal) Range: 5-40 LDL [...] Risk :47 Thyroid Stim Hormone (TSH) Comments: [facility] [address] [place], [place], [address] TSH 1.13 {uIU/mL} (Normal) Range: 0.358-3.74 :47 Vitamin D,25 Hydroxy Comments: [facility] [address] [place], [place], [address] Vitamin D 25-OH 41.2 ng/mL (Normal) Comments: Vitamin D 25(OH) Status Range Deficiency <20 ng/mL (50nmol/L) Insuffciency 20 - 30 ng/mL (50 - 75 nmol/L) Sufficiency 30 - 100 ng/mL (75 - 250 nmol/L) Toxicity >100 ng/mL (>250 nmol/L) :53 URINALYSIS (48114) Comments: PATIENT NOT FASTINGPERFORMED BY: [facility]CoThe [facility] HospitalEysyxi4222 [facility] [id number] Information: [id number] Microscopic Examination MICNIP (Normal) Comments: Microscopic not indicated and not performed. Nitrite, Urine Negative (Normal) Urobilinogen,Semi-Qn 0.2 mg/dL (Normal) Range: 0.0-1.9 Bilirubin Negative (Normal) Occult Blood Negative (Normal) Ketones Negative (Normal) Glucose Negative (Normal) Protein Negative (Normal) WBC Esterase Negative (Normal) Appearance Clear (Normal) Urine-Color Yellow (Normal) pH 7.5 (Normal) Range: 5.0-7.5 Specific Douds 1.015 (Normal) Range: 1.005-1.030 :53 URINE LIBBY CULTURE-IDENTIFICATN Comments: PATIENT NOT FASTINGPERFORMED BY: [facility] [address] [place] [id number] ([id number]) Result 1 NG36 (Normal) Comments: No growth in 36 - 48 hours. Urine Culture,Comprehensive Final report (Normal) :22 CBC W/Diff, Automated Comments: Test performed at:[facility] [address] [place] [address] Absolute Lymph 1.45 {X10_3/ul} (Normal) Range: 0.83-4.51 [...] 4.2-5.4 WBC 4.7 K/mm3 (Normal) Range: 4.4-11.0 85-Kpq-25282:22 Comprehensive Metabolic Profil Comments: Test performed at:[facility] [address] [place] [address] GAP 6 (Normal) Range: 5-15 [...] 7-18 GLU 100 mg/dL (Normal) Range: 70-110 70-Dzw-06562:22 Lipid Profile Comments: Test performed at:[facility] [address]xsq[address] [place], [place] [address] VLDL 27 mg/dL (Normal) Range: 5-40 LDL [...] :22 Microalb:Creat Ratio,Random UR Comments: Test performed at:[facility] [address] [place] [address] MALB:CREAT 7.1 {mg/g_CRE} (Normal) MICROALBUMIN,UR 18.2 mg/L (Normal) UR CREAT 256.0 mg/dL (Normal) :22 Urinalysis, Complete Comments: How was Urine Obtained? CLEAN CATCHTest performed at:[facility] [address] [place] [address] CA OX CRYSTAL 1+ {/hpf} [...] :22 Vitamin D,25 Hydroxy Comments: Test performed at:[facility] [address] [place] [address] Vitamin D 25-OH 44.6 ng/mL (Normal) Comments: Vitamin D 25(OH) Status Range Deficiency <20 ng/mL (50nmol/L) Insuffciency 20 - 30 ng/mL (50 - 75 nmol/L) Sufficiency 30 - 100 ng/mL (75 - 250 nmol/L) Toxicity >100 ng/mL (>250 nmol/L) 66-Qhe-607281:55 CBCD ANC 2.4 {X10_3/uL} (Normal) Range: 2.0-7.7 [...] 7-18 GLU 94 mg/dL (Normal) Range: 70-110 91-Adm-378760:55 UA Comments: How was Urine Obtained? CLEAN CATCH ANA 100 /ul (Abnormal) UOB 10 /ul (Abnormal) PRATEEK Negative (Normal) UROBU Normal mg/dL (Normal) VASQUEZ 6.0 (Normal) Range: 5.0 - 8.0 uPROTU Negative mg/dL (Normal) SGU 1.020 (Normal) Range: 1.002-1.030 KETU Negative mg/dL (Normal) BILIU Negative mg/dL (Normal) GLUR Normal mg/dL (Normal) UCLAR Clear (Normal) UCOL Yellow (Normal) 46-Vhn-792839:23 Microscopic Examination Comments: PATIENT WAS FASTINGPERFORMED BY: [facility]CoThe [facility] HospitalHpjrna2961 [facility] [id number] Bacteria None seen (Normal) Mucus Threads Present (Normal) Epithelial Cells (non renal) 0-10 {/hpf} (Normal) Range: 0 - 10 RBC None seen {/hpf} (Normal) Range: 0 - 3 WBC 0-5 {/hpf} (Normal) Range: 0 - 5 83-Hif-381682:51 BILAT SCRN DIGITAL & CAD Radiology Report [...] Pierre M.D.October 09, 2012 at 12:29:05 PM [id number] Signed GP/GP If you are the referring physician and would like to consult with theradiologist who provided this interpretation, please contact Santos Chatterjee at [phone]. If this radiologist is unavailable, youwill be directed to another radiologi st to assist. If you are a patient with a question regarding this report, pleasecontactyour referring physician directly. Professional Interpretation Provided By: [employer], Phone ,Fax These documents contain legally protected [...] destructionofthese documents. Dictated on 10/09/12 1152 by Nisha Pierre MDscribed on 10/09/12 1234 by ITS IMPORTSign by Mikey Pierre MD on 10/09/12 1235 Si gn by: Mikey Pierre MD 68-Gpp-736745:23 URINALYSIS, W/ MICRO (02928) Comments: PATIENT WAS FASTINGPERFORMED BY: [facility]6370 [facility] [id number] Microscopic Examination See below: (Normal) Microscopic Examination MICRON (Normal) Comments: Microscopic follows if indicated. Nitrite, Urine Negative (Normal) Urobilinogen,Semi-Qn 1.0 mg/dL (Normal) Range: 0.0-1.9 Bilirubin Negative (Normal) Occult Blood Negative (Normal) Ketones Negative (Normal) Glucose Negative (Normal) Protein Negative (Normal) WBC Esterase Negative (Normal) Appearance Clear (Normal) Urine-Color Yellow (Normal) pH 7.5 (Normal) Range: 5.0-7.5 Specific Douds 1.021 (Normal) Range: 1.005-1.030 :23 MICROALBUMIN: CREATININE RATIO Comments: PATIENT WAS FASTINGPERFORMED BY: [facility] [id number] ([id number]) AND (36020) Microalb/Creat Ratio 3.0 {mg/g_creat} (Normal) Range: 0.0-30.0 Microalbumin, Urine 2.5 ug/mL (Normal) Range: 0.0-17.0 Creatinine, Urine 82.1 mg/dL (Normal) Range: 15.0-278.0 32-Amt-085774:23 METABOLIC PANEL, COMPREHENSIVE Comments: PATIENT WAS FASTINGPERFORMED BY: [place] 9336070 [facility] [id number] (67391) ALT (SGPT) 29 [iU]/L (Normal) Range: 0-32 [...] Glucose, Serum 93 mg/dL (Normal) Range: 65-99 77-Lzv-026410:23 LIPID PANEL (11421) Comments: PATIENT WAS FASTINGPERFORMED BY: [facility]70 [facility] [id number] LDL/HDL Ratio 3.0 {ratio_units} (Normal) Range: 0.0-3.2 LDL Cholesterol Calc 145 mg/dL (Abnormal) Range: 0-99 HDL Cholesterol 49 mg/dL (Normal) Comments: According to ATP-III Guidelines, HDL-C >59 mg/dL is considered anegative risk factor for CHD. VLDL Cholesterol Brayden 22 mg/dL (Normal) Range: 5-40 Triglycerides 110 mg/dL (Normal) Range: 0-149 Cholesterol, Total 216 mg/dL (Abnormal) Range: 100-199 17-Khv-489146:23 CBC WITH MANUAL DIFF Comments: PATIENT WAS FASTINGPERFORMED BY: Mgv70 [facility] [id number] Information: [id number] (97163) Immature Grans (Abs) 0.0 {x10E3/uL} (Normal) Range: [...] 3.77-5.28 WBC 3.6 {x10E3/uL} (Abnormal) Range: 4.0-10.5 7-Mdi-989493:23 KNEE,4 OR MORE VIEWS Radiology Report See [...] radiologist regarding this report, please call our 14X1ocfwlsz line @ Dictated on 03/02/12 1234 by Yessi KAY MDcribed on 12/30/11 1655 by ITS IMPORTSign by WALTER KAY MD on 12/30/11 1656 Sign by: WALTER KAY MD :59 Microscopic Examination Comments: PATIENT WAS FASTINGPERFORMED BY: Mgv70 [facility] [id number] Bacteria None seen (Normal) Mucus Threads Present (Normal) Epithelial Cells (non renal) 0-10 {/hpf} (Normal) Range: 0 - 10 RBC 0-3 {/hpf} (Normal) Range: 0 - 3 WBC 0-5 {/hpf} (Normal) Range: 0 - 5 :59 URINALYSIS, W/ MICRO (76147) Comments: PATIENT WAS FASTINGPERFORMED BY: Mgv70 [facility] [id number] Microscopic Examination See below: (Normal) Microscopic Examination MICRON (Normal) Comments: Microscopic follows if indicated. Nitrite, Urine Negative (Normal) Urobilinogen,Semi-Qn 0.2 mg/dL (Normal) Range: 0.0-1.9 Bilirubin Negative (Normal) Occult Blood Negative (Normal) Ketones Negative (Normal) Glucose Negative (Normal) Protein Negative (Normal) WBC Esterase Negative (Normal) Appearance Clear (Normal) Urine-Color Yellow (Normal) pH 6.0 (Normal) Range: 5.0-7.5 Specific Douds 1.018 (Normal) Range: 1.005-1.030 :59 MICROALBUMIN: CREATININE RATIO Comments: PATIENT WAS FASTINGPERFORMED BY: [facility]6370 [facility] [id number] (21377) AND (53547) Microalb/Creat Ratio 4.3 {mg/g_creat} (Normal) Range: 0.0-30.0 Creatinine, Urine 98.4 mg/dL (Normal) Range: 15.0-278.0 Microalbumin, Urine 4.2 ug/mL (Normal) Range: 0.0-17.0 :59 METABOLIC PANEL, COMPREHENSIVE Comments: PATIENT WAS FASTINGPERFORMED BY: wufoo [facility]CR[facility]SRO[facility] SYSTEMS6370 [facility] [id number] (95146) ALT (SGPT) 29 [iU]/L (Normal) Range: 0-40 [...] Glucose, Serum 99 mg/dL (Normal) Range: 65-99 12-Wyn-916654:59 LIPID PANEL (75155) Comments: PATIENT WAS FASTINGPERFORMED BY: LabSoevolvedThe Valley HospitalTubgcb2763 [facility] [id number] LDL/HDL Ratio 3.0 {ratio_units} (Normal) Range: 0.0-3.2 LDL Cholesterol Calc 146 mg/dL (Abnormal) Range: 0-99 VLDL Cholesterol Brayden 20 mg/dL (Normal) Range: 5-40 HDL Cholesterol 48 mg/dL (Normal) Comments: According to ATP-III Guidelines, HDL-C >59 mg/dL is considered anegative risk factor for CHD. Cholesterol, Total 214 mg/dL (Abnormal) Range: 100-199 Triglycerides 102 mg/dL (Normal) Range: 0-149 61-Vuk-240696:59 CBC WITH MANUAL DIFF (76162) Comments: PATIENT WAS FASTINGPERFORMED BY: LabCo Rroqtj7563 [facility] [id number] Immature Grans (Abs) 0.0 {x10E3/uL} (Normal) Range: [...] 3.80-5.10 WBC 3.7 {x10E3/uL} (Abnormal) Range: 4.0-10.5 2-Pay-577377:15 [facility]ELLE [facility]ERE[facility] DIGITAL & CAD Radiology Report See Note [...] 10/04/11 1602 Sign by: Mikey Pierre MD 23-Klh-911270:06 BMP Comments: appt 04/12/11 GAP 8 (Normal) [...] by ANANYA ORTIZTranscribed on 10/01/101533 by MAIN WAGNERSign by ANANYA ORTIZ on 10/04/10 1405 Sign by: ANANYA ORTIZ 94-Fni-79721:40 CBCD ABSOLUTE NEUT 1.8 3/uL (Abnormal) Range: [...] (Normal) Comments: Result: NEGATIVE COLOR YELLOW (Normal) 70-Lug-478705:54 CBCD,SMEAR DIFF RED CELL MORPH SeeNote {NORMAL} [...] 0.2 EU/dl (Normal) Range: 0.2 - 1.0 22-Jnw-239458:54 LIPID CHOL 207 mg/dL (Abnormal) Comments: <200 mg/dL Obgmlfodj931-635 mg/dL Borderline>240 mg/dL High Risk HDL 46 [...] mg/L (Normal) UR CREAT 27.6 mg/dL (Normal) 1-Zvt-232360:53 BILAT SCRN DIGITAL & CAD Radiology Report See Note (Normal) Comments: Exam Number: [id number] MAMMOGRAM, BILATERAL SCREENING DIGITAL AND CAD HISTORYRoutine [...] werealso examined with computer- aided detection software ([employer].). Reported By: ANANYA ORTIZ M.D. 47-Aia-358265:28 LOWER EXT/JT ONLY (ROUTINE) Radiology Report See Note (Normal) Comments: Exam Number: [id number] CLINICAL:63-year-old female with a 5-week history of [...] T PROT 6.9 g/dL (Normal) Range: 6.4-8.2 01-Oct-20089:26 LIPID CHOL 224 mg/dL (Abnormal) Comments: <200 [...] mg/dL VLDL 20 mg/dL (Normal) Range: 5-40 60-Uoe-863857:00 BILAT SCRN DIGITAL & CAD Radiology Report See Note (Normal) Comments: Exam Number: [id number] MAMMOGRAM, BILATERAL SCREENING DIGITAL AND CAD HISTORYRoutine [...] mammograms werealso examined with computer-aided detection software ([employer].). Reported By: ANANYA ORTIZ M.D. 02-Nov-20078:51 BMP [...] 3.5-5.1 NA 142 mmol/L (Normal) Range: 136-145 06-Vqu-501344:13 Urinalysis, Office (68039) UA - BILIRUBIN Negative (Normal) UA - BLOOD Non Hemolyzed Trace (Normal) UA - GLUCOSE Negative (Normal) UA - KETONES Negative mg/dL (Normal) UA - LEUKOCYTE ESTERASE Trace (Normal) UA - NITRITE Negative (Normal) UA - PH 6.0 (Normal) UA - PROTEIN Negative mg/dL (Normal) UA - SPECIFIC GRAVITY 1.020 (Normal) URINE UROBILINGN PAKO TIMED 2 mg/dL (Normal) 39-Eiq-764798:11 BILAT SCRN DIGITAL & CAD Radiology Report See Note (Normal) Comments: Exam Number: [id number] MAMMOGRAM, BILATERAL SCREENING DIGITAL AND CAD HISTORYRoutine [...] werealso examined with compute r-aided detection software ([employer].). Reported By: ANANYA ORTIZ M.D. 76-Wtn-445773:24 Microscopic Examination Comments: PATIENT NOT FASTINGPERFORMED BY: wufoo [facility] Mlvust9204 [facility] [id number] Bacteria Moderate (Abnormal) Crystal Type Calcium Oxalate (Normal) Comments: Amorphous Sediment Crystals Present (Abnormal) Epithelial Cells (non renal) >10 {/hpf} (Abnormal) Range: 0 - 10 Mucus Threads Present (Abnormal) RBC None seen {/hpf} (Normal) Range: 0 - 3 WBC 0-5 {/hpf} (Normal) Range: 0 - 5 Yeast Present (Abnormal) 71-Wgp-517544:24 URINALYSIS W/O MICRO (27942) Comments: PATIENT NOT FASTINGPERFORMED BY: wufoo LabCoThe Valley HospitalIkjfch8011 [facility] [id number] Appearance Clear (Normal) Bilirubin Negative (Normal) Glucose Negative (Normal) Ketones Negative (Normal) Microscopic Examination See below: (Normal) Nitrite, Urine Negative (Normal) Occult Blood Negative (Normal) pH 5.5 (Normal) Range: 5.0-7.5 Protein Negative (Normal) Specific Douds 1.023 (Normal) Range: 1.005-1.030 Urine-Color Yellow (Normal) Urobilinogen,Semi-Qn 0.2 mg/dL (Normal) Range: 0.0-1.9 WBC Esterase 1+ (Abnormal) 27-Kfm-798520:24 METABOLIC PANEL, COMPREHENSIVE Comments: PATIENT NOT FASTINGPERFORMED BY: PAYAL LabCoThe Valley HospitalAacvez4711 [facility] [id number] (98076) A/G Ratio 2.0 (Normal) Range: 1.1-2.5 Albumin, [...] Sodium, Serum 143 mmol/L (Normal) Range: 135-148 12-Oye-004565:24 CBC WITH MANUAL DIFF (93577) Comments: PATIENT NOT FASTINGClinical Information: ADD DRAW FEE [id number] ADD J 71031 PERFORMED BY: PAYAL CellmemoreCoThe Valley HospitalErulqe5836 [facility] [id number] Baso (Absolute) 0.0 {x10E3/uL} (Normal) Range: 0.0-0.2 [...] 11.7-15.0 WBC 3.1 {x10E3/uL} Range: 4.0-10.5 (Abnormal) 87-Byc-72634:00 CULTURE, THROAT See Note (Normal) Comments: Normal throat fredo isolated. No beta-hemolyticstreptococcus isolated. 88-Egv-886651:20 CHEST, PA AND LATERAL Radiology Report See Note (Normal) Comments: Exam Number: [id number] PA AND LATERAL CHEST HISTORYShortness of breath, chest heaviness. Cardiac configuration is normal. No acute infiltrate, effusion orpneumothorax is noted. There is spur formatio n in the mid dorsalspine. There is mild overinflation of the lungs. Further clinicalcorrelation needed. IMPRESSION1. No acute change noted in the lungs. Reported By: TRU SUNSHINE M.D. 24-Wpm-45079:01 CBCD,SMEAR DIFF CELLS COUNTED 100 (Normal) EOS [...] T PROT 7.1 g/dL (Normal) Range: 6.4-8.2 90-Cnd-93034:01 PFLIP CHOL 219 mg/dL (Abnormal) Comments: <200 [...] Symptoms Indication: Bronchitis Planned Observations LIPID PANEL (35681)Indication: Hypercholesterolemia On: 58-Tkd-706208:09 Request METABOLIC PANEL, COMPREHENSIVE (25113)Indication: Hypercholesterolemia On: :09 Request TRIGLYCERIDES (84192)Indication: Hypercholesterolemia On: 3-Ile-530943: Request LDL CHOLESTEROL-DIRECT (68052)Indication: Hypercholesterolemia On: 4-Wnj-389116: Request Metabolic Panel, Basic (33700)Indication: Hypertension On: 16-Gcn-645928:19 Request Metabolic Panel, Comprehensive (62486)Indication: Hypertension On: 95-Zxu-199222:05 Request Comments: in six months (approximately) CBC, Platelets & Auto Diff (92716)Indication: Hypertension On: 68-Dij-343564: Request CALCIFIDIOL (67241) VIT D 25Indication: Preoperative clearance On: :32 Request Lipid Panel (31797)Indication: Preoperative clearance On: :32 Request Metabolic Panel, Comprehensive (34934)Indication: Preoperative clearance On: :32 Request TSH (58389)Indication: Preoperative clearance On: :32 Request CBC WITH MANUAL DIFF (65741)Indication: Preoperative clearance On: :32 Request CBC, Platelets & Auto Diff (95173)Indication: Alteration of body temperature On: 71-Iac-371322:02 Request Metabolic Panel, Basic (12553)Indication: Hypertension On: 06-Oct-20158:43 Request URINALYSIS, W/ MICRO (15441)Indication: Hypertension On: :03 Request METABOLIC PANEL, COMPREHENSIVE (49160)Indication: Hypertension On: 7-Irq-267891:03 Request LIPID PANEL (66702)Indication: Hypertension On: :02 Request CBC with auto diff (57092)Indication: Hypertension On: :02 Request CALCIFEDIOL (14982)Indication: Hypertension On: 08-Erw-392171:17 Request TSH (52512)Indication: Hypertension On: :16 Request CBC WITH MANUAL DIFF (73294)Indication: Hypertension On: :16 Request Lipid Panel (16838)Indication: Hypercholesterolemia On: 21-Gqk-155921:16 Request Metabolic Panel, Comprehensive (24311)Indication: Hypertension On: 41-Daz-316465:16 Request CALCIFIDIOL (61220) VIT D 25Indication: Benign breast cyst in female On: 59-Vke-241130:39 Request URINALYSIS, W/ MICRO (24604)Indication: Hypertension On: :38 Request MICROALBUMIN: CREATININE RATIO (67577) AND (91863)Indication: Hypertension On: :38 Request METABOLIC PANEL, COMPREHENSIVE (43620)Indication: Hypertension On: :38 Request LIPID PANEL (08902)Indication: Hypertension On: :38 Request CBC WITH MANUAL DIFF (67791)Indication: Hypertension On: :38 Request URINALYSIS (87628)Indication: Hypertension On: 47-Uvq-577930:12 Request CBC with manual diff (02157)Indication: Hypertension On: :53 Request Lipid Panel (94361)Indication: Hypertension On: :52 Request Metabolic Panel, Comprehensive (71118)Indication: Hypertension On: :52 Request Metabolic Panel, Basic (98494)Indication: Hypertension On: 14-Yak-747968:12 Request METABOLIC PANEL, BASIC (10760)Indication: Hypertension On: 64-Ney-627942:27 Request MICROALBUMIN: CREATININE RATIO (64597) AND (23737)Indication: Hypercholesterolemia On: :39 Request CBC, PLATELETS & AUT DIFF (42479)Indication: Hypercholesterolemia On: :39 Request URINALYSIS (97541)Indication: Hypercholesterolemia On: :39 Request LIPID PANEL (34680)Indication: Hypercholesterolemia On: :39 Request METABOLIC PANEL, COMPREHENSIVE (53948)Indication: Hypercholesterolemia On: :39 Request URINALYSIS, W/ MICRO (66099)Indication: Hypertension On: :58 Request MICROALBUMIN: CREATININE RATIO (02758) AND (70289)Indication: Hypertension On: :58 Request METABOLIC PANEL, COMPREHENSIVE (54030)Indication: Hypertension On: 35-Qnz-022702:58 Request LIPID PANEL (94927)Indication: Hypertension On: 64-Yia-076466:58 Request CBC WITH MANUAL DIFF (27764)Indication: Hypertension On: 35-Eha-544196:58 Request Rapid Strep Test, Office (01380)Indication: Pharyngitis, acute On: :54 Request LIBBY CULTURE-OTHER (83172)Indication: Pharyngitis, acute On: :54 Request LIPID PANEL (28653)Indication: Hypercholesterolemia On: :11 Request HEPATIC FUNCTION PANEL (11934)Indication: Hypercholesterolemia On: 3-Wra-551738:11 Request Comments: in six months CBC WITH MANUAL DIFF (12923)Indication: Hypertension On: :35 Request LIPID PANEL (49781)Indication: Hypertension On: :34 Request METABOLIC PANEL, COMPREHENSIVE (63870)Indication: Hypertension On: :34 Request Planned Encounters Medical; [facility] 4 Month Fu - On: 15-Jan-2019 11:30 [facility] Damaris TERRY, Sade Butt MD Planned Procedures Ultrasound - ThyroidBy: Damaris TERRY, On: 11-Sep-2018 Intent Sade Butt MD DEXA SCAN AXIAL SKELETON (07736)By: On: 06-Apr-2018 Intent Sade Ocampo MD, MD, Dana M MAMMOGRAM BREAST BILATERAL On: 16-Mar-2018 Intent SCREENING DIGITAL (81491)By: Sade Ocampo MD, MD, Dana M EKG (32636)By: Sade Ocampo MD On: 13-Feb-2018 Intent Sade Ocampo MD Radiology - Hand - RightBy: Damaris On: 29-Jan-2018 Intent Sade TERRY MD, Dana M Radiology - Hip - LeftBy: Damaris On: 12-May-2017 Intent Sade TERRY MD, Dana M Radiology - Lumbar SpineBy: Damaris On: 12-May-2017 Intent Sade TERRY MD, Dana M MAMMOGRAM BREAST BILATERAL On: 13-Mar-2017 Intent SCREENING DIGITAL (04505)By: Sade Ocampo MDi MD, Sade M Aerosol Treatment (66160)By: Lydiarb On: 20-Jan-2016 Intent Dora RG MAMMOGRAM, SCREENING, BOTH BREAST On: 02-Oct-2015 Intent (37524)By: Damaris TERRY, Sade Butt MD Bone Density StudyBy: Damaris TERRY, On: 02-Oct-2015 Intent Sade Butt MD BILATERAL MAMMOGRAMS (05866)By: On: 21-Sep-2015 Intent Damaris TERRY, Sade Butt MD Prevnar 13 (34267)By: Damaris TERRY, On: 17-Oct-2014 Intent Sade Butt MD BILATERAL MAMMOGRAMS (76894)By: On: 16-Sep-2014 Intent Sade Ocampo MD, MD, Dana M Breast Screening - BilateralBy: On: 16-Sep-2013 Intent Sade Ocampo MD, MD, Dana M Rocephon Injection, 1 Gm On: 20-Nov-2012 Intent (J0696)By: Sade Ocampo MD Comments: Lot #[id number]-bilateral hipsDose- 2 gramsgiven by: IFRAH Anderson MD, Dana M THER/PROPH/DIAG INJ, SC/IM On: 20-Nov-2012 Intent ([id number])By: Sade Ocampo MD, MD, Dana M Eprescribed prescriptions On: 08-Nov-2012 Intent ([id number])By: Sade Ocampo MD, MD, Dana M PNEUM VAC ADLT/IMUMNOSPR, SBC/INTRM On: 15-Oct-2012 Intent ([id number])By: Jacquelyn Steven LPN Comments: Lot: [id number]: [id number]: 0.5mlRoute: IMSite: L deltoidGiven by: IFRAH Suh IMMUNIZ ADMNIN, 1 VAC, SNGL/COMBO On: 15-Oct-2012 Intent ([id number])By: Jacquelyn Steven LPN Breast Screening - BilateralBy: On: 08-Oct-2012 Intent Sade Ocampo MD, MD, Sade CORONA ADMNIN, 1 VAC, SNGL/COMBO On: 08-Oct-2012 Intent ([id number])By: Sade Ocampo MD, MD, Dana M PNEUM VAC ADLT/IMUMNOSPR, SBC/INTRM On: 08-Oct-2012 Intent ([id number])By: Sade Ocampo MD, MD, Sade CORONA ADMNIN, 1 VAC, SNGL/COMBO On: 08-Oct-2012 Intent ([id number])By: DAVID Nina FLU VAC, SPLIT, >3 YEARS, INTRAMUSC On: 08-Oct-2012 Intent ([id number])By: DAVID Nina MRI - Knee(s) - LeftBy: Donovan KIDD, On: 30-Dec-2011 Intent Alissa Garcia PHYSICAL THERAPY EVALUATION On: 30-Dec-2011 Intent ([id number])By: Alissa Mna CNP Doppler Ultrasound OtherBy: Donovan On: 30-Dec-2011 Intent Alissa KIDD Radiology - Knee - LeftBy: Donovan On: 30-Dec-2011 Intent Alissa KIDD Breast Screening - BilateralBy: On: 04-Aug-2011 Intent Sade Ocampo MD, MD, Dana M Eprescribed prescriptions On: 10-Jan-2011 Intent ([id number])By: Sade Ocampo MD, MD, Dana M EKG ([id number])By: DAVID Nina On: 12-Oct-2010 Intent MAMMOGRAM, SCREENING, BOTH BREASTS On: 20-Sep-2010 Intent ([id number])By: Haley Chaparro DO EKG ([id number])By: Sade Ocampo MD On: 17-Sep-2009 Intent Sade Ocampo MD MAMMOGRAM, SCREENING, BOTH BREASTS On: 17-Sep-2009 Intent ([id number])By: Sade Ocampo MD, MD, Dana M MAMMOGRAM, SCREENING, BOTH BREASTS On: 23-Sep-2008 Intent ([id number])By: Lara Iglesias Nuclear Stress Test/Stress On: 19-Oct-2007 Intent SPECT/TreadmillBy: Haley Chaparro DO EKG ([id number])By: Haley Chaparro DO On: 19-Oct-2007 Intent Comments: ekg showed normal sinus rhythym, normal axis, no acute st/t wave changes nsivcd Bio Z ([id number])By: Haley Chaparro DO On: 19-Oct-2007 Intent Comments: good paremeterss IMMUNIZ ADMNIN, 1 VAC, SNGL/COMBO On: 22-Aug-2007 Intent ([id number])By: Shruthi Louis LPN PNEUM VAC ADLT/IMUMNOSPR, SBC/INTRM On: 22-Aug-2007 Intent ([id number])By: Shruthi Louis LPN Comments: lot # [id number] exp- 09/06 LDLT patient tolerated well Flu Vaccine, Split IM ([id number])By: On: 22-Aug-2007 Intent Shruthi Louis LPN Comments: lot #[id number] exp- 02/04 RDLT patient tolerated well SPECIMEN HNDLNG/TRNSPRT, OFFC > LAB On: 18-Jun-2007 Intent ([id number])By: NAYELI DIAMOND CNP Pulse Oximetry ([id number])By: Maico On: 18-Jun-2007 Intent DAVID Radiology - Chest- PA and LatBy: On: 09-Feb-2007 Intent Lacey Sherman DO Aerosol Treatment ([id number])By: Lane On: 09-Feb-2007 Intent Lacey SALAZAR Comments: [...] glutealGiven by: Magalys Michael LPN Inhaler Demo ([id number])By: DARA KIDD, On: 07-Feb-2007 Intent NAYELI Aerosol Treatment ([id number])By: DARA On: 07-Feb-2007 Intent NAYELI KIDD Comments: moderate improvement after treatment--still tons of wheezing diffuse inspir and exp IMMUNIZ ADMNIN, 1 VAC, SNGL/COMBO On: 13-Oct-2006 Intent ([id number])By: Sade Ocampo MD, MD, Dana M FLU VAC, SPLIT, >3 YEARS, INTRAMUSC On: 13-Oct-2006 Intent ([id number])By: Sade Ocampo MD, MD, Dana M MAMMOGRAM, SCREENING, BOTH BREASTS On: 13-Oct-2006 Intent ([id number])By: Sade Ocampo MD, MD, Dana M EKG ([id number])By: Sade Ocampo MD On: 13-Oct-2006 Intent Sade Ocampo MD Bio Z ([id number])By: Sade Ocampo MD On: 13-Oct-2006 Intent Sade [...] The patient does have durable power of privacy attorney and living will. The patient h as noticed nothing from the geriatic depression scale. Other providers contributing to the patient's care are oiler and greaser, gastrologist (Dr. Pabon ) and other: [facility]Encounter Diagnosis: Encounter for Medicare annual wellness [...] [facility] End: 13-Sep-2006 7:17 Payers MedicareLynette/shraddha supplement Harmeet garcia guarantor
--- OUTSIDE RECORDS SUMMARY | 2019-01-17 14:46 | XMS RPT_ITS | Continuity of Care Document ---
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 [id number] Information: SRC:TH Result 1 RRF (Normal) Comments: Routine respiratory fredo Upper Respiratory Culture Final report (Normal) 82-Nly-588328:52 Rapid Strep Test, Office (03017) Rapid Strep Test, Office Negative (Normal) :51 FLU A+B DIRECT AG, (RAPID) (54361) FLU A+B DIRECT AG, (RAPID) negative (Normal) 6-Ral-253853:09 LDL, Direct Comments: Comments: [facility] (refer to report for specific site)refer to report for address and phone number; fu 18 db COMMENT Test not performed (Normal) LDL,DIR 908846 147 mg/dL (Abnormal) Range: 0-99 Comments: Performed at: [facility] [employer] [id number] Director: Steve Carey PhD, Phone: [phone] Triglycerides Comments: Comments: [facility] [address] [place], [address] TRIG 117 mg/dL (Normal) Comments: The drugs N-Acetylcysteine and Metamizole may falselydepress this assay.Serum Triglycerides Reference Interval Normal <150 mg/dL Borderline high 150 - 199 mg/dL High 200 - 499 mg/dL Very High > or = 500 mg/dL :27 Carcinoembryonic Antigen Comments: [facility] (refer to report for specific site)refer to report for address and phone number CEA 1.4 ng/mL (Normal) Range: 0.0-4.7 Comments: Caroline ECLIA methodology Nonsmokers <3.9 Smokers <5.6Performed at: [employer] [id number] Director: Steve Carey PhD, Phone: [phone] 49-Otv-325092:27 CRP Comments: [facility] [address] [place], [address] C-REACTIVE PROT 5.31 mg/L (Abnormal) Range: 0.0-3.0 Comments: C-Reactive Protein (CRP) provides useful information for thediagnosis, therapy and monitoring of inflammatory processesand associated diseases. For the evaluation of Relative Riskfor Cardiovascular Dise ase, a High Sensitivity CRP (HSCRP)should be ordered. 42-Yzd-273331:27 Erythrocyte Sed Rate Comments: [facility] [address] [place], [place], [id number] SED RATE 3 mm/h (Normal) Range: 0-30 91-Szb-814496:27 URINE HISTOPLASMA ANTIGEN Comments: [facility] (refer to report for specific site)refer to report for address and phone number UR Comments: TEST RESULT LIMITSHistoplasma Gal'krys Ag Ur <0.5 <0.5 ng/mLDisclaimer: This test was developed and its performance characteristics determined by Sagar RIZO (Ana) Tyron. It has not been cleared or approved by the Food and Drug Administration. [facility]. ORIGINAL REPORT ON FILE IN LAB AG CONTAINS ADDITIONAL TEST SITE INFORMATION. 7-Nsf-895393:26 Metabolic Panel, Basic (61718) Comments: PATIENT NOT FASTINGPERFORMED BY: [facility] Ejwnne1290 [facility] [id number] Calcium 10.0 mg/dL (Normal) Range: 8.7-10.3 Carbon [...] 8-27 Glucose 113 mg/dL (Abnormal) Range: 65-99 22-Cdr-302772:23 Metabolic Panel, Comprehensive Comments: PATIENT NOT FASTINGPERFORMED BY: CommitChangeAcuteCare Health SystemTukkrm7769 [facility] [id number] (78156) ALT (SGPT) 23 [iU]/L (Normal) Range: 0-32 [...] 8-27 Glucose 94 mg/dL (Normal) Range: 65-99 56-Ybj-517230:23 CBC WITH MANUAL DIFF Comments: PATIENT NOT FASTINGPERFORMED BY: [facility]CoAc[facility]Care Health SystemPscwgs6874 [facility] [id number] Information: NURSE DRAW; fu DB 6-8 (95482) Immature Grans (Abs) 0.0 {x10E3/uL} (Normal) Range: [...] 3.77-5.28 WBC 3.2 {x10E3/uL} (Abnormal) Range: 3.4-10.8 07-Jip-719098:23 MICROALBUMIN: CREATININE RATIO Comments: PATIENT NOT FASTINGPERFORMED BY: [facility] Wcrroz9975 [facility] [id number] (17683) AND (53139) Alb/Creat Ratio 5.3 {mg/g_creat} (Normal) Range: 0.0-30.0 Albumin, Urine 3.7 ug/mL (Normal) Creatinine, Urine 70.0 mg/dL (Normal) 33-Ikn-888648:23 URINALYSIS (26719) Comments: PATIENT NOT FASTINGPERFORMED BY: [facility] Bokztp3470 [facility] [id number] Microscopic Examination MICNIP (Normal) Comments: Microscopic not indicated and not performed. Nitrite, Urine Negative (Normal) Urobilinogen,Semi-Qn 0.2 mg/dL (Normal) Range: 0.2-1.0 Bilirubin Negative (Normal) Occult Blood Negative (Normal) Ketones Negative (Normal) Glucose Negative (Normal) Protein Negative (Normal) WBC Esterase Negative (Normal) Appearance Clear (Normal) Urine-Color Yellow (Normal) pH 6.5 (Normal) Range: 5.0-7.5 Specific [place] 1.018 (Normal) Range: 1.005-1.030 90-Kys-544005:30 Culture, R/O Strep A Comments: [facility] [address] [place], [place], [address] CUSTREPA See Note (Normal) Comments: AVERY CultureNo Group A Beta Streptococcus isolated. * This cultures intended use is to screen for Beta Streptococcus A only. All other pathogens and potential pathogens will not be screened for or rep orted. If a complete workup of all potential pathogens is indicated an order for a routine throat culture is required. 9-Wkr-552725:10 ANTINUCLEAR ANTIBODIES DIRECT Comments: [facility] (refer to report for specific site)refer to report for address and phone number MILTON-DIRECT Negative (Normal) Comments: Performed at: [address] [id number] Director: Steve Carey PhD, Phone: [phone] 0-Tzh-898043:10 Ferritin Comments: [facility] [address] [place], [place], [address] FERRITIN 251 ng/mL (Normal) Range: 8-252 48-Ygj-559173:40 Methymalonic Acid, Serum Comments: today; PATIENT NOT FASTINGPERFORMED BY: CommitChange[address] [id number] BY: [address] [id number] (21100) Methylmalonic Acid, Serum 198 nmol/L (Normal) Range: 0-378 93-Dij-975454:40 Vitamin B-12 Comments: today; PATIENT NOT FASTINGPERFORMED BY: CommitChange[address] [id number] BY: CommitChange[address] [id number] (cyanocobalamin) (82968) Vitamin B12 353 pg/mL (Normal) Range: 211-946 27-Hkm-502969:23 HEPATITIS C ANTIBODY Comments: PATIENT NOT FASTINGPERFORMED BY: PAYAL [facility] Fzesfc4697 [facility] [id number] Information: NURSE DRAW (89633) Hep C Virus Ab <0.1 {s/co_ratio} (Normal) Range: 0.0-0.9 Comments: Negative: < 0.8 Indeterminate: 0.8 - 0.9 Positive: > 0.9 . The CDC recommends that a positive HCV antibody result be followed up with a HCV Nucleic Acid Amplification test (012352). :57 Alanine Aminotransferas (SGPT) Comments: DR.CHARLICK VERDIN.[facility] [address] [place], [address] ALT 32 U/L (Normal) Range: 12-78 :57 ALB/GLOB Ratio Comments: DR.CHARLICK VERDIN.[facility] [address]pzc45[address] [place], [address] A/G 1.2 {RATIO} (Normal) Range: 0.9-2.4 :57 Albumin, Serum Comments: DR.CHARLICK VERDIN.[facility] M[address]fs[address]xdxlx[address] [place], [address] ALB 3.7 g/dL (Normal) Range: 3.4-5.0 :57 Alkaline Phosphatase Comments: DR.CHARLICK VERDIN.[facility] Ityarestoc[address] [place], [address] ALK P 93 U/L (Normal) Range: 50-136 :57 AST(SGOT) Comments: DR.CHARLICK VERDIN.[facility] [address]yxi[address] [place], [place], [address] AST 22 U/L (Normal) Range: 15-37 :57 Basic Metabolic Profile (BMP) Comments: DR.CHARLICK VERDIN.[facility] [address]azzr[address] [place], [place], [address] GAP 8 (Normal) Range: 5-15 CO2 26.0 [...] Range: 70-110 :57 Bilirubin, Total Comments: DR.CHARLICK VERDIN.[facility] [address] [place], [place], [address] T BILI 0.50 mg/dL (Normal) Range: 0.20-1.00 :57 Globulin Comments: DR.CHARLICK VERDIN.[facility] Wiiwufjmsp34[address] [place], [place], [address] GLOB 3.1 g/dL (Normal) Range: 2.3-3.5 :57 Lipid Profile Comments: DR.CHARLICK VERDIN.[facility] [address]yrjviv[address] [place], [place], [phone]) VLDL 17 mg/dL (Normal) Range: 5-40 LDL [...] High Risk :57 Protein, Total Comments: DR.CHARLICK VERDIN.[facility] Txnmdqjpxd3905 [facility] [place], [address] T PROT 6.8 g/dL (Normal) Range: 6.4-8.2 :57 Thyroid Stim Hormone (TSH) Comments: DR.CHARLICK VERDIN.[facility] [address]hwvez24[address] [place], [address] TSH 1.36 {uIU/mL} (Normal) Range: 0.358-3.74 10-Xpa-613990:40 Rapid Flu (55186 x 2) Comments: neg Influenza A Ag negative (Normal) 45-Yal-75223:47 CBC W/Diff, Automated Comments: [facility] [address] [place] [address], [address] ; [address] Absolute Lymph 1.25 [...] 4.2-5.4 WBC 3.5 K/mm3 (Abnormal) Range: 4.4-11.0 53-Pir-88602:47 Comprehensive Metabolic Profil Comments: [facility] [address] [place], [address] GAP 9 (Normal) Range: 5-15 CO2 25.0 [...] (Normal) Range: 70-110 :47 Lipid Profile Comments: [facility] [address] [place], [place], [address] VLDL 28 mg/dL (Normal) Range: 5-40 LDL [...] Risk :47 Thyroid Stim Hormone (TSH) Comments: [facility] [address] [place], [address] TSH 1.13 {uIU/mL} (Normal) Range: 0.358-3.74 :47 Vitamin D,25 Hydroxy Comments: [facility] [address] [place], [address] Vitamin D 25-OH 41.2 ng/mL (Normal) Comments: Vitamin D 25(OH) Status Range Deficiency <20 ng/mL (50nmol/L) Insuffciency 20 - 30 ng/mL (50 - 75 nmol/L) Sufficiency 30 - 100 ng/mL (75 - 250 nmol/L) Toxicity >100 ng/mL (>250 nmol/L) 5-Nac-352924:53 URINALYSIS (68872) Comments: PATIENT NOT FASTINGPERFORMED BY: [facility]6370 [facility] [id number] Information: [id number] Microscopic Examination MICNIP (Normal) Comments: Microscopic not indicated and not performed. Nitrite, Urine Negative (Normal) Urobilinogen,Semi-Qn 0.2 mg/dL (Normal) Range: 0.0-1.9 Bilirubin Negative (Normal) Occult Blood Negative (Normal) Ketones Negative (Normal) Glucose Negative (Normal) Protein Negative (Normal) WBC Esterase Negative (Normal) Appearance Clear (Normal) Urine-Color Yellow (Normal) pH 7.5 (Normal) Range: 5.0-7.5 Specific [place] 1.015 (Normal) Range: 1.005-1.030 2-Nvn-782678:53 URINE LIBBY CULTURE-IDENTIFICATN Comments: PATIENT NOT FASTINGPERFORMED BY: [facility]6370 [facility] [id number] (06475) Result 1 NG36 (Normal) Comments: No growth in 36 - 48 hours. Urine Culture,Comprehensive Final report (Normal) 54-Zdy-17310:22 CBC W/Diff, Automated Comments: Test performed at:[facility] [address] [place], [place] [address] Absolute Lymph 1.45 {X10_3/ul} (Normal) Range: 0.83-4.51 [...] :22 Comprehensive Metabolic Profil Comments: Test performed at:[facility] [address] [place] [address] GAP 6 (Normal) Range: 5-15 CO2 28.0 [...] 70-110 :22 Lipid Profile Comments: Test performed at:[facility] [address] [place] [address] VLDL 27 mg/dL (Normal) Range: [...] :22 Microalb:Creat Ratio,Random UR Comments: Test performed at:[facility] [address] [place] [address] MALB:CREAT 7.1 {mg/g_CRE} (Normal) MICROALBUMIN,UR 18.2 mg/L (Normal) UR CREAT 256.0 mg/dL (Normal) :22 Urinalysis, Complete Comments: How was Urine Obtained? CLEAN CATCHTest performed at:[facility] [address]kot[address] [place] [address] CA OX CRYSTAL 1+ {/hpf} [...] CLARITY Sl. Cloudy (Normal) COLOR Yellow (Normal) 10-Bfe-36225:22 Vitamin D,25 Hydroxy Comments: Test performed at:[facility] [address] [place] [address] Vitamin D 25-OH 44.6 ng/mL (Normal) Comments: Vitamin D 25(OH) Status Range Deficiency <20 ng/mL (50nmol/L) Insuffciency 20 - 30 ng/mL (50 - 75 nmol/L) Sufficiency 30 - 100 ng/mL (75 - 250 nmol/L) Toxicity >100 ng/mL (>250 nmol/L) 43-Wfp-660642:55 CBCD ANC 2.4 {X10_3/uL} (Normal) Range: 2.0-7.7 [...] 4.2-5.4 WBC 4.4 K/mm3 (Normal) Range: 4.4-11.0 93-Vlp-687684:55 CMP GAP 8 (Normal) Range: 5-15 CL [...] 7-18 GLU 94 mg/dL (Normal) Range: 70-110 39-Xxd-446957:55 UA Comments: How was Urine Obtained? CLEAN CATCH ANA 100 /ul (Abnormal) UOB 10 /ul (Abnormal) PRATEEK Negative (Normal) UROBU Normal mg/dL (Normal) VASQUEZ 6.0 (Normal) Range: 5.0 - 8.0 uPROTU Negative mg/dL (Normal) SGU 1.020 (Normal) Range: 1.002-1.030 KETU Negative mg/dL (Normal) BILIU Negative mg/dL (Normal) GLUR Normal mg/dL (Normal) UCLAR Clear (Normal) UCOL Yellow (Normal) 99-Fgc-420099:23 Microscopic Examination Comments: PATIENT WAS FASTINGPERFORMED BY: [facility] SystemQyeiuv5539 [facility] [id number] Bacteria None seen (Normal) Mucus Threads Present (Normal) Epithelial Cells (non renal) 0-10 {/hpf} (Normal) Range: 0 - 10 RBC None seen {/hpf} (Normal) Range: 0 - 3 WBC 0-5 {/hpf} (Normal) Range: 0 - 5 42-Jdf-407180:51 BILAT SCRN DIGITAL & CAD Radiology Report [...] Pierre M.D.October 09, 2012 at 12:29:05 PM [id number] Signed GP/GP If you are the referring physician and would like to consult with theradiologist who provided this interpretation, please contact Santos Chatterjee at [phone]. If this radiologist is unavailable, youwill be directed to another radiologi st to assist. If you are a patient with a question regarding this report, pleasecontactyour referring physician directly. Professional Interpretation Provided By: [employer], Phone ,Fax These documents contain legally protected [...] documents. Dictated on 10/09/12 1152 by Gabby TERRY,MatiasriJeannineranscribed on 10/09/12 1234 by ITS IMPORTSign by Gabby TERRY,Mikey on 10/09/12 1235 Si gn by: Mikey Pierre MD 89-Fjf-489158:23 URINALYSIS, W/ MICRO (84739) Comments: PATIENT WAS FASTINGPERFORMED BY: [facility] [id number] Microscopic Examination See below: (Normal) Microscopic Examination MICRON (Normal) Comments: Microscopic follows if indicated. Nitrite, Urine Negative (Normal) Urobilinogen,Semi-Qn 1.0 mg/dL (Normal) Range: 0.0-1.9 Bilirubin Negative (Normal) Occult Blood Negative (Normal) Ketones Negative (Normal) Glucose Negative (Normal) Protein Negative (Normal) WBC Esterase Negative (Normal) Appearance Clear (Normal) Urine-Color Yellow (Normal) pH 7.5 (Normal) Range: 5.0-7.5 Specific [place] 1.021 (Normal) Range: 1.005-1.030 77-Imc-709851:23 MICROALBUMIN: CREATININE RATIO Comments: PATIENT WAS FASTINGPERFORMED BY: [facility]6370 [facility] [id number] ([id number]) AND (40629) Microalb/Creat Ratio 3.0 {mg/g_creat} (Normal) Range: 0.0-30.0 Microalbumin, Urine 2.5 ug/mL (Normal) Range: 0.0-17.0 Creatinine, Urine 82.1 mg/dL (Normal) Range: 15.0-278.0 07-Cce-466976:23 METABOLIC PANEL, COMPREHENSIVE Comments: PATIENT WAS FASTINGPERFORMED BY: [employer]70 [facility] [id number] (50547) ALT (SGPT) 29 [iU]/L (Normal) Range: 0-32 [...] Glucose, Serum 93 mg/dL (Normal) Range: 65-99 08-Uwt-273172:23 LIPID PANEL (31121) Comments: PATIENT WAS FASTINGPERFORMED BY: PAYAL [facility] Smzhhb1281 [facility] [id number] LDL/HDL Ratio 3.0 {ratio_units} (Normal) Range: 0.0-3.2 LDL Cholesterol Calc 145 mg/dL (Abnormal) Range: 0-99 HDL Cholesterol 49 mg/dL (Normal) Comments: According to ATP-III Guidelines, HDL-C >59 mg/dL is considered anegative risk factor for CHD. VLDL Cholesterol Brayden 22 mg/dL (Normal) Range: 5-40 Triglycerides 110 mg/dL (Normal) Range: 0-149 Cholesterol, Total 216 mg/dL (Abnormal) Range: 100-199 49-Syg-815441:23 CBC WITH MANUAL DIFF Comments: PATIENT WAS FASTINGPERFORMED BY: [facility] SystemXxospq4069 [facility] [id number] Information: [id number] (53173) Immature Grans (Abs) 0.0 {x10E3/uL} (Normal) Range: [...] 3.77-5.28 WBC 3.6 {x10E3/uL} (Abnormal) Range: 4.0-10.5 6-Mjp-878547:23 KNEE,4 OR MORE VIEWS Radiology Report See [...] radiologist regarding this report, please call our 35P7mwnqdoi line @ Dictated on 12/30/11 1234 by WALTER KAY MDTranscribed on 12/30/11 1655 by ITS IMPORTSign by WALTER KAY MD on 12/30/111655 Sign by: WALTER KAY MD 18-Bxm-817622:59 Microscopic Examination Comments: PATIENT WAS FASTINGPERFORMED BY: [facility]6370 [facility] [id number] Bacteria None seen (Normal) Mucus Threads Present (Normal) Epithelial Cells (non renal) 0-10 {/hpf} (Normal) Range: 0 - 10 RBC 0-3 {/hpf} (Normal) Range: 0 - 3 WBC 0-5 {/hpf} (Normal) Range: 0 - 5 38-Zax-374163:59 URINALYSIS, W/ MICRO (99030) Comments: PATIENT WAS FASTINGPERFORMED BY: [facility]ama6370 [facility] [id number] Microscopic Examination See below: (Normal) Microscopic Examination MICRON (Normal) Comments: Microscopic follows if indicated. Nitrite, Urine Negative (Normal) Urobilinogen,Semi-Qn 0.2 mg/dL (Normal) Range: 0.0-1.9 Bilirubin Negative (Normal) Occult Blood Negative (Normal) Ketones Negative (Normal) Glucose Negative (Normal) Protein Negative (Normal) WBC Esterase Negative (Normal) Appearance Clear (Normal) Urine-Color Yellow (Normal) pH 6.0 (Normal) Range: 5.0-7.5 Specific [place] 1.018 (Normal) Range: 1.005-1.030 :59 MICROALBUMIN: CREATININE RATIO Comments: PATIENT WAS FASTINGPERFORMED BY: CommitChangeAcuteCare Health SystemRenqir6735 [facility] [id number] (33863) AND (56317) Microalb/Creat Ratio 4.3 {mg/g_creat} (Normal) Range: 0.0-30.0 Creatinine, Urine 98.4 mg/dL (Normal) Range: 15.0-278.0 Microalbumin, Urine 4.2 ug/mL (Normal) Range: 0.0-17.0 :59 METABOLIC PANEL, COMPREHENSIVE Comments: PATIENT WAS FASTINGPERFORMED BY: CommitChangeAcuteCare Health SystemQgnkdb9708 [facility] [id number] (58344) ALT (SGPT) 29 [iU]/L (Normal) Range: 0-40 [...] mg/dL (Normal) Range: 65-99 :59 LIPID PANEL (43248) Comments: PATIENT WAS FASTINGPERFORMED BY: [employer]70 [facility] [id number] LDL/HDL Ratio 3.0 {ratio_units} (Normal) Range: 0.0-3.2 LDL Cholesterol Calc 146 mg/dL (Abnormal) Range: 0-99 VLDL Cholesterol Brayden 20 mg/dL (Normal) Range: 5-40 HDL Cholesterol 48 mg/dL (Normal) Comments: According to ATP-III Guidelines, HDL-C >59 mg/dL is considered anegative risk factor for CHD. Cholesterol, Total 214 mg/dL (Abnormal) Range: 100-199 Triglycerides 102 mg/dL (Normal) Range: 0-149 :59 CBC WITH MANUAL DIFF (68076) Comments: PATIENT WAS FASTINGPERFORMED BY: [employer] [facility] Nidzit5067 [facility] [id number] Immature Grans (Abs) 0.0 {x10E3/uL} (Normal) Range: [...] 3.80-5.10 WBC 3.7 {x10E3/uL} (Abnormal) Range: 4.0-10.5 9-Abr-372139:15 BILAT SCRN DIGITAL & CAD Radiology Report [...] y suspiciousabnormality. Dictated on 10/04/11 1137 by Gabby TERRY,GabrieleTranscribed on 10/04/11 1601 by ITS IMPORTSign by Mikey Pierre MD on 10/04/11 1602 Sign by: Mikey Pierre MD 43-Jyq-054899:06 BMP Comments: appt 04/12/11 GAP 8 (Normal) [...] 10/01/101533 by ANANYA ORTIZTranscribed on 10/01/101533 by INTERFACE,MCKESSONSign by ANANYA ORTIZ on 10/04/10 [...] (Normal) Comments: Result: NEGATIVE COLOR YELLOW (Normal) 76-Isj-761332:54 CBCD,SMEAR DIFF RED CELL MORPH SeeNote {NORMAL} [...] 47-70 WBC 3.2 K/mm3 (Abnormal) Range: 4.4-11.0 29-Dmt-076701:54 COMP METABOLIC GAP 12 (Normal) Range: 5-15 [...] CHOL 207 mg/dL (Abnormal) Comments: <200 mg/dL Avwnodkmy341-909 mg/dL Borderline>240 mg/dL High Risk HDL 46 [...] mg/L (Normal) UR CREAT 27.6 mg/dL (Normal) 5-Kos-934636:53 BILAT SCRN DIGITAL & CAD Radiology Report See Note (Normal) Comments: Exam Number: [id number] MAMMOGRAM, BILATERAL SCREENING DIGITAL AND CAD HISTORYRoutine [...] werealso examined with computer- aided detection software (Image[employer], [employer] Reported By: ANANYA ORTIZ M.D. 98-Ygb-330489:28 LOWER EXT/JT ONLY (ROUTINE) Radiology Report See Note (Normal) Comments: Exam Number: [id number] CLINICAL:63-year-old female with a 5-week history of [...] mg/dL VLDL 20 mg/dL (Normal) Range: 5-40 63-Oce-288499:00 BILAT SCRN DIGITAL & CAD Radiology Report See Note (Normal) Comments: Exam Number: [id number] MAMMOGRAM, BILATERAL SCREENING DIGITAL AND CAD HISTORYRoutine [...] mammograms werealso examined with computer-aided detection software (V[employer]ch, [employer] Reported By: ANANYA ORTIZ M.D. 02-Nov-20078:51 BMP [...] 3.5-5.1 NA 142 mmol/L (Normal) Range: 136-145 28-Ltk-078256:13 Urinalysis, Office (50799) UA - BILIRUBIN Negative (Normal) UA - BLOOD Non Hemolyzed Trace (Normal) UA - GLUCOSE Negative (Normal) UA - KETONES Negative mg/dL (Normal) UA - LEUKOCYTE ESTERASE Trace (Normal) UA - NITRITE Negative (Normal) UA - PH 6.0 (Normal) UA - PROTEIN Negative mg/dL (Normal) UA - SPECIFIC GRAVITY 1.020 (Normal) URINE UROBILINGN PAKO TIMED 2 mg/dL (Normal) 50-Tne-842518:11 BILAT SCRN DIGITAL & CAD Radiology Report See Note (Normal) Comments: Exam Number: [id number] MAMMOGRAM, BILATERAL SCREENING DIGITAL AND CAD HISTORYRoutine [...] werealso examined with compute r-aided detection software ([employer], [employer] Reported By: ANANYA ORTIZ M.D. 62-Mwg-861958:24 Microscopic Examination Comments: PATIENT NOT FASTINGPERFORMED BY: [facility] Mhlneo4385 [facility] [id number] Bacteria Moderate (Abnormal) Crystal Type Calcium Oxalate (Normal) Comments: Amorphous Sediment Crystals Present (Abnormal) Epithelial Cells (non renal) >10 {/hpf} (Abnormal) Range: 0 - 10 Mucus Threads Present (Abnormal) RBC None seen {/hpf} (Normal) Range: 0 - 3 WBC 0-5 {/hpf} (Normal) Range: 0 - 5 Yeast Present (Abnormal) 19-Xlm-683695:24 URINALYSIS W/O MICRO (21368) Comments: PATIENT NOT FASTINGPERFORMED BY: [facility]6370 [facility] [id number] Appearance Clear (Normal) Bilirubin Negative (Normal) Glucose Negative (Normal) Ketones Negative (Normal) Microscopic Examination See below: (Normal) Nitrite, Urine Negative (Normal) Occult Blood Negative (Normal) pH 5.5 (Normal) Range: 5.0-7.5 Protein Negative (Normal) Specific [place] 1.023 (Normal) Range: 1.005-1.030 Urine-Color Yellow (Normal) Urobilinogen,Semi-Qn 0.2 mg/dL (Normal) Range: 0.0-1.9 WBC Esterase 1+ (Abnormal) 76-Vbh-706245:24 METABOLIC PANEL, COMPREHENSIVE Comments: PATIENT NOT FASTINGPERFORMED BY: CommitChangeAcuteCare Health SystemXdigod2812 [facility] [id number] (29858) A/G Ratio 2.0 (Normal) Range: 1.1-2.5 Albumin, [...] Sodium, Serum 143 mmol/L (Normal) Range: 135-148 10-Grb-179140:24 CBC WITH MANUAL DIFF (01876) Comments: PATIENT NOT FASTINGClinical Information: ADD DRAW FEE [id number] ADD J 20454 PERFORMED BY: LabCoPeter Ville 9706770 [facility] [id number] Baso (Absolute) 0.0 {x10E3/uL} (Normal) Range: 0.0-0.2 [...] Normal throat fredo isolated. No beta-hemolyticstreptococcus isolated. 76-Jus-664192:20 CHEST, PA AND LATERAL Radiology Report See Note (Normal) Comments: Exam Number: [id number] PA AND LATERAL CHEST HISTORYShortness of breath, [...] T PROT 7.1 g/dL (Normal) Range: 6.4-8.2 42-Rvh-04495:01 PFLIP CHOL 219 mg/dL (Abnormal) Comments: <200 [...] Symptoms Indication: Bronchitis Planned Observations LIPID PANEL (39939)Indication: Hypercholesterolemia On: 32-Kjc-415984:09 Request METABOLIC PANEL, COMPREHENSIVE (96405)Indication: Hypercholesterolemia On: 52-Csz-607427:09 Request TRIGLYCERIDES (96376)Indication: Hypercholesterolemia On: 6-Aeg-086134:21 Request LDL CHOLESTEROL-DIRECT (14620)Indication: Hypercholesterolemia On: 4-Bmh-421891:21 Request Metabolic Panel, Basic ([id number])Indication: Hypertension On: 75-Frf-044419:19 Request Metabolic Panel, Comprehensive ([id number])Indication: Hypertension On: 43-Ljh-099079:05 Request Comments: in six months (approximately) CBC, Platelets & Auto Diff ([id number])Indication: Hypertension On: 88-Xzf-023398:05 Request CALCIFIDIOL ([id number]) VIT D 25Indication: Preoperative clearance On: :32 Request Lipid Panel ([id number])Indication: Preoperative clearance On: :32 Request Metabolic Panel, Comprehensive ([id number])Indication: Preoperative clearance On: :32 Request TSH ([id number])Indication: Preoperative clearance On: :32 Request CBC WITH MANUAL DIFF ([id number])Indication: Preoperative clearance On: :32 Request CBC, Platelets & Auto Diff ([id number])Indication: Alteration of body temperature On: 38-Fhb-276747:02 Request Metabolic Panel, Basic ([id number])Indication: Hypertension On: 8-Dec-96434:43 Request URINALYSIS, W/ MICRO ([id number])Indication: Hypertension On: :03 Request METABOLIC PANEL, COMPREHENSIVE ([id number])Indication: Hypertension On: :03 Request LIPID PANEL ([id number])Indication: Hypertension On: :02 Request CBC with auto diff ([id number])Indication: Hypertension On: :02 Request CALCIFEDIOL ([id number])Indication: Hypertension On: :17 Request TSH ([id number])Indication: Hypertension On: :16 Request CBC WITH MANUAL DIFF ([id number])Indication: Hypertension On: :16 Request Lipid Panel ([id number])Indication: Hypercholesterolemia On: :16 Request Metabolic Panel, Comprehensive ([id number])Indication: Hypertension On: :16 Request CALCIFIDIOL ([id number]) VIT D 25Indication: Benign breast cyst in female On: 03-Uwi-114892:39 Request URINALYSIS, W/ MICRO ([id number])Indication: Hypertension On: 48-Mnf-583542:38 Request MICROALBUMIN: CREATININE RATIO ([id number]) AND ([id number])Indication: Hypertension On: 41-Hlj-400583:38 Request METABOLIC PANEL, COMPREHENSIVE ([id number])Indication: Hypertension On: 87-Zrv-852514:38 Request LIPID PANEL ([id number])Indication: Hypertension On: :38 Request CBC WITH MANUAL DIFF ([id number])Indication: Hypertension On: :38 Request URINALYSIS ([id number])Indication: Hypertension On: 87-Gks-964072:12 Request CBC with manual diff ([id number])Indication: Hypertension On: :53 Request Lipid Panel ([id number])Indication: Hypertension On: :52 Request Metabolic Panel, Comprehensive ([id number])Indication: Hypertension On: :52 Request Metabolic Panel, Basic ([id number])Indication: Hypertension On: 53-Lto-057555:12 Request METABOLIC PANEL, BASIC ([id number])Indication: Hypertension On: 73-Dbn-996626:27 Request MICROALBUMIN: CREATININE RATIO ([id number]) AND ([id number])Indication: Hypercholesterolemia On: :39 Request CBC, PLATELETS & AUT DIFF ([id number])Indication: Hypercholesterolemia On: :39 Request URINALYSIS ([id number])Indication: Hypercholesterolemia On: :39 Request LIPID PANEL ([id number])Indication: Hypercholesterolemia On: :39 Request METABOLIC PANEL, COMPREHENSIVE ([id number])Indication: Hypercholesterolemia On: :39 Request URINALYSIS, W/ MICRO ([id number])Indication: Hypertension On: 95-Ait-417582:58 Request MICROALBUMIN: CREATININE RATIO ([id number]) AND ([id number])Indication: Hypertension On: :58 Request METABOLIC PANEL, COMPREHENSIVE ([id number])Indication: Hypertension On: :58 Request LIPID PANEL ([id number])Indication: Hypertension On: :58 Request CBC WITH MANUAL DIFF ([id number])Indication: Hypertension On: :58 Request Rapid Strep Test, Office ([id number])Indication: Pharyngitis, acute On: 07-Jdc-81391:54 Request LIBBY CULTURE-OTHER ([id number])Indication: Pharyngitis, acute On: 41-Szw-94319:54 Request LIPID PANEL ([id number])Indication: Hypercholesterolemia On: :11 Request HEPATIC FUNCTION PANEL ([id number])Indication: Hypercholesterolemia On: 5-Iio-645399:11 Request Comments: in six months CBC WITH MANUAL DIFF ([id number])Indication: Hypertension On: 03-Opw-742834:35 Request LIPID PANEL ([id number])Indication: Hypertension On: 37-Vvc-884111:34 Request METABOLIC PANEL, COMPREHENSIVE ([id number])Indication: Hypertension On: 37-Awp-563126:34 Request Planned Encounters Medical; [facility] 4 Month Fu - On: 15-Jan-2019 11:30 [facility] Damaris TERRY, Sade Butt MD Planned Procedures EsophagramBy: Sade Ocampo MD On: 26-Sep-2018 Intent Sade Ocampo MD Comments: with a 12 mm tablet swallow Ultrasound - ThyroidBy: Damaris TERRY, On: 11-Sep-2018 Intent Sade Butt MD DEXA SCAN AXIAL SKELETON ([id number])By: On: 06-Apr-2018 Intent Sade Ocampo MD, MD, Dana M MAMMOGRAM BREAST BILATERAL On: 16-Mar-2018 Intent SCREENING DIGITAL ([id number])By: Sade Ocampo MD, MD, Dana M EKG ([id number])By: Sade Ocampo MD On: 13-Feb-2018 Intent Sade Ocampo MD Radiology - Hand - RightBy: Damaris On: 29-Jan-2018 Intent Sade TERRY MD, Dana M Radiology - Hip - LeftBy: Damaris On: 12-May-2017 Intent Sade TERRY MD, Dana M Radiology - Lumbar SpineBy: Damaris On: 12-May-2017 Intent Sade TERYR MD, Dana M MAMMOGRAM BREAST BILATERAL On: 13-Mar-2017 Intent SCREENING DIGITAL ([id number])By: Sade Ocampo MD, MD, Dana M Aerosol Treatment ([id number])By: Bianca On: 20-Jan-2016 Intent IFRAH Dora MAMMOGRAM, SCREENING, BOTH BREAST On: 02-Oct-2015 Intent ([id number])By: Sade Ocampo MD, MD, Dana M Bone Density StudyBy: Damaris TERRY, On: 02-Oct-2015 Intent Sade Butt MD BILATERAL MAMMOGRAMS ([id number])By: On: 21-Sep-2015 Intent Sade Ocampo MD, MD, Dana M Prevnar 13 ([id number])By: Damaris TERRY, On: 17-Oct-2014 Intent Sade Butt MD BILATERAL MAMMOGRAMS ([id number])By: On: 16-Sep-2014 Intent Sade Ocampo MD, MD, Dana M Breast Screening - BilateralBy: On: 16-Sep-2013 Intent Sade Ocampo MD, MD, Dana M Rocephon Injection, 1 Gm On: 20-Nov-2012 Intent ([id number])By: Sade Ocampo MD Comments: Lot #[id number]-bilateral hipsDose- 2 gramsgiven by: IFRAH Anderson MD, Dana M THER/PROPH/DIAG INJ, SC/IM On: 20-Nov-2012 Intent ([id number])By: Damaris TERRY, Sade Ocampo MD, Sade Barbosa Eprescribed prescriptions On: 08-Nov-2012 Intent ([id number])By: Damaris TERRY, Sade Ocampo MD, Sade Barbosa PNEUM VAC ADLT/IMUMNOSPR, SBC/INTRM On: 15-Oct-2012 Intent ([id number])By: Jacquelyn Steven LPN Comments: Lot: [id number]: [id number]: 0.5mlRoute: IMSite: L deltoidGiven by: IFRAH Suh IMMUNIZ ADMNIN, 1 VAC, SNGL/COMBO On: 15-Oct-2012 Intent ([id number])By: Jacquelyn Steven LPN Breast Screening - BilateralBy: On: 08-Oct-2012 Intent Damaris TERRY, Sade Ocampo MD, Sade Barbosa IMMUNIZ ADMNIN, 1 VAC, SNGL/COMBO On: 08-Oct-2012 Intent ([id number])By: Damrais TERRY, Sade Ocampo MD, Sade Barbosa PNEUM VAC ADLT/IMUMNOSPR, SBC/INTRM On: 08-Oct-2012 Intent ([id number])By: Sade Ocampo MD, MD, Sade Barbosa IMMUNIZ ADMNIN, 1 VAC, SNGL/COMBO On: 08-Oct-2012 Intent ([id number])By: DAVID Nina FLU VAC, SPLIT, >3 YEARS, INTRAMUSC On: 08-Oct-2012 Intent ([id number])By: DAVID Nina MRI - Knee(s) - LeftBy: Donovan KIDD, On: 30-Dec-2011 Intent Alissa Garcia PHYSICAL THERAPY EVALUATION On: 30-Dec-2011 Intent ([id number])By: Alissa Man CNP Doppler Ultrasound OtherBy: Donovan On: 30-Dec-2011 Intent Alissa KIDD Radiology - Knee - LeftBy: Donovan On: 30-Dec-2011 Intent Alissa KIDD Breast Screening - BilateralBy: On: 04-Aug-2011 Intent Damaris TERRY, Sade Butt MD Eprescribed prescriptions On: 10-Jan-2011 Intent ([id number])By: Sade Ocampo MD, MD, Dana M EKG ([id number])By: DAVID Nina On: 12-Oct-2010 Intent MAMMOGRAM, SCREENING, BOTH BREASTS On: 20-Sep-2010 Intent ([id number])By: Haley Chaparro DO EKG ([id number])By: Sade Ocampo MD On: 17-Sep-2009 Intent Sade Ocampo MD MAMMOGRAM, SCREENING, BOTH BREASTS On: 17-Sep-2009 Intent ([id number])By: Sade Ocampo MD, MD, Dana M MAMMOGRAM, SCREENING, BOTH BREASTS On: 23-Sep-2008 Intent ([id number])By: Lara Iglesias Nuclear Stress Test/Stress On: 19-Oct-2007 Intent SPECT/TreadmillBy: Haley Chaparro DO EKG ([id number])By: Haley Chaparro DO On: 19-Oct-2007 Intent Comments: ekg showed normal sinus rhythym, normal axis, no acute st/t wave changes nsivcd Bio Z ([id number])By: Haley Chaparro DO On: 19-Oct-2007 Intent Comments: good paremeterss IMMUNIZ ADMNIN, 1 VAC, SNGL/COMBO On: 22-Aug-2007 Intent ([id number])By: Shruthi Louis LPN PNEUM VAC ADLT/IMUMNOSPR, SBC/INTRM On: 22-Aug-2007 Intent ([id number])By: Shruthi Louis LPN Comments: lot # [id number] exp- 09/06 LDLT patient tolerated well Flu Vaccine, Split IM ([id number])By: On: 22-Aug-2007 Intent Shruthi Louis LPN Comments: lot #[id number] exp- 02/04 RDLT patient tolerated well SPECIMEN HNDLNG/TRNSPRT, OFFC > LAB On: 18-Jun-2007 Intent ([id number])By: NAYELI DIAMOND CNP Pulse Oximetry ([id number])By: Maico, On: 18-Jun-2007 Intent DAVID Radiology - Chest- PA and LatBy: On: 09-Feb-2007 Intent Lacey Sherman DO Aerosol Treatment ([id number])By: Lane On: 09-Feb-2007 Intent Lacey SALAZAR Comments: more air exchange-- softer rhonchi no wheeze Solu- Medrol Injection, 125mg On: 09-Feb-2007 Intent ([id number])By: Lacey Sherman DO Comments: lot # [id number] 08/07 LGLT Radiology - ChestBy: Lane SALAZAR, On: 07-Feb-2007 Intent Lacey Solu -Medrol Injection, 125 mg On: 07-Feb-2007 Intent ([id number])By: Mast RNWanda Comments: Lot #: [id number] date:08/07Amount given: 125 mg/2 mlRoute: IMSite given: Right glutealGiven by: Magalys Michael LPN Inhaler Demo ([id number])By: DARA KIDD, On: 07-Feb-2007 Intent NAYELI Aerosol Treatment ([id number])By: DARA On: 07-Feb-2007 Intent NAYELI KIDD Comments: moderate improvement after treatment--still tons of wheezing diffuse inspir and exp IMMUNIZ ADMNIN, 1 VAC, SNGL/COMBO On: 13-Oct-2006 Intent ([id number])By: Sade Ocampo MD, MD, Dana M FLU VAC, SPLIT, >3 YEARS, INTRAMUSC On: 13-Oct-2006 Intent ([id number])By: Sade Ocampo MD, MD, Dana M MAMMOGRAM, SCREENING, BOTH BREASTS On: 13-Oct-2006 Intent ([id number])By: Sade Ocampo MD, MD, Dana M EKG ([id number])By: Sade Ocampo MD On: 13-Oct-2006 Intent Sade Ocampo MD Bio Z ([id number])By: Sade Ocampo MD On: 13-Oct-2006 Intent Sade [...] Indication: Pharyngitis, acute Encounters Office Visit On: 16-Oct-2018 17:23 Encounter Diagnosis: Abnormality of esophagus End: 16-Oct-2018 20:01 [facility] Office Visit On: 26-Sep-2018 10:47 Encounter Diagnosis: Alteration of body temperature, Pharyngitis, acute, BMI 30.0- 30.9,adult, Current nonsmoker (Renamed from Current non-smoker), Goiter, Dysphagia, Obesity, unspecified End: 26-Sep-2018 11:18 [facility] Office Visit On: 11-Sep-2018 11:29 Encounter Reason: [...] The patient does have durable power of customer engineer and living will. The patient h as noticed nothing from the geriatic depression scale. Other providers contributing to the patient's care are diesel engine i pipe fitter, gastrologist (Dr. Pabon ) and other: [facility]Encounter Diagnosis: Encounter for Medicare [...] Nutrition: balanced diet and supplemental vitamins. The ma dical issues the patient is following up [...] (150's/70's). Note for high blood pressure: got bells palsey and parents are not healthy so she [...] for neck and DDD using traction machine, lizbeth santiago Encounter Diagnosis: Hypertension (401.0), GERD (530.81), Hypercholesterolemia (272.0), Degenerative Disc Disease (722.6), Irritable bowel syndrome (564.1), Osteoarthritis (715.96), AGRANULOCYTOSIS (288.0), SOB (786.05), Well Women Exam, No Pap (V72.31) (Mammo) [facility] Historical Summary On: 13-Sep-2006 7:09 [facility] End: 13-Sep-2006 7:17 [place] Harmeet garcia guarantor
--- OUTSIDE RECORDS SUMMARY | 2019-01-17 14:47 | XMS RPT_ITS | Continuity of Care Document ---
:1945 Author Organization [facility] Address [address] [facility] [address] [place] [address] Phone Care Team Providers Name Role Phone [...] annual wellness exam (Z00.00, V70.0) Comments: [facility]. colonoscopy 6-17 3 polyps recheck [...] out. Status: Active Medications Name Dates Details Biaxin 500 MG Oral Tablet 1 (one) Tablet bid for 10 days Quantity: 20 {Tablet} Refills: 0 Ordered:28-Sep-2018 Damaris TERRY, Sade Vasquez MD Start : 28-Sep-2018 Active Cyclobenzaprine HCl 10 MG Oral Tablet 1 (one) Tablet tid prn for 0 days Quantity: 60 {Tablet} Refills: 1 Ordered:02-Oct-2018 Damaris TERRY, Sade Vasquez MD Start : 02-Oct-2018 End : 15-May-2018 Active Losartan Potassium-HCTZ 100-25 MG Oral Tablet 1 (one) Tablet qd for 0 days Quantity: 60 {Tablet} Refills: 6 Ordered:24-Sep-2018 Damaris TERRY, Sade Olson MD, Sade Barbosa Start : 24-Sep-2018 Active Pantoprazole Sodium 40 MG Oral Tablet Delayed Release 1 (one) Tablet DR qd for 0 days Quantity: 60 {Tablet} Refills: 4 Ordered:05-Mar-2018 Damaris TERRY, Sade Olson MD, Sade Barbosa Start : 05-Mar-2018 Active Zetia 10 MG Oral Tablet 1 (one) Tablet Tablet in am for 0 days Quantity: 60 {Tablet} Refills: 6 Ordered:24-Sep-2018 Damaris TERRY, Sade Olson MD, Sade Barbosa Start : 24-Sep-2018 Active ALTACE, 10MG (Oral [...] : 07-Sep-2012 End : 01-Oct-2012 Inactive Comments:LEONARDO DIODENVER HCT, 80-12.5MG (Oral Tablet) 1 Tablet qd for 0 days Quantity: 60 {Tablet} Refills: 4 Ordered:01-Oct-2012 Long Karly RG Start : 07-Sep-2012 End : 01-Oct-2012 Inactive [...] : 06-Nov-2008 End : 30-Mar-2009 Inactive NYSTATIN, 304728BRLY/GM (External Powder) uad Powder bid to affected [...] days Quantity: 60 {Tablet} Refills: 6 Ordered:12-Oct-2010 BonezzSade flynn MD, MD, Dana M Start : 12-Oct-2010 End : 12-Oct-2010 Discontinued LEVAQUIN, 500MG (Oral Tablet) 1 (one) Tablet daily for 0 days Quantity: 10 {Tablet} Refills: 0 Ordered:17-Oct-2011 Mast RORYWanda Start : 17-Oct-2011 End : 16-Nov-2011 Discontinued [...] OF FACE WITHOUT INFECTION (910.0) Comments: warren owHien fell at movie theater Status: Resolved as [...] 19-Mar-2009 Well woman exam (Z01.419, V72.31) Comments: [facility] BSO bd 2012 good. mamm 7-14 with [...] 19-Sep-2018 Thyroid Result: Comments: See Note; NOTES: [facility] Imaging Services [address] [place] [address] Thyroid MR#: [id number] Acct: [id number] Name: SACHIN SCHUSTER Rep #: [id number] : [birth year] F 72 From: Hugo Ventura MD PCP: Sade Ocampo MD Status: REG CLI Study: Thyroid Date of Exam: 09/19/18 Exam# [id number] Ordering Dr: Sade Ocampo MD STUDY: THYROID [...] MD at 9:15 EST , Service support [phone], CC: Sade Ocampo MD Bioinformatics Team Member: Signed 24-May-2018 Chest PA and Lateral Result: Comments: See Note; NOTES: [facility] Imaging Services [address] [place] [address] Chest PA and Lateral MR#: [id number] Acct: [id number] Name: SACHIN SCHUSTER Rep #: [id number] : 1945 F 72 From: Jose Elias Campbell MD PCP: Sade Ocampo MD Status: REG CLI Study: Chest PA and Lateral Date of Exam: 05/24/18 Exam# [id number] Ordering Dr: Teodoro Sanchez MD STUDY: X-RAY [...] CC: Sade Ocampo MD; Teodoro Sanchez MD Bioinformatics Team Member: Signed 30-Apr-2018 PET/CT Tumor Base -Thigh Init Result: Comments: See Note; NOTES: [facility] Imaging Services [address] [place] [address] PET/CT Tumor Base -Thigh Init MR#: [id number] Acct: [id number] Name: SACHIN SCHUSTER Rep # : [id number] : 1945 F 72 From: Walter Monzon DO PCP: Sade Ocampo MD Status: REG CLI Study: PET/CT Tumor Base -Thigh Init Date of Exam: 04/30/18 Exam# [id number] Ordering Dr: Sade Ocampo MD EXAMINATION: FDG [...] Service support , CC: Sade Ocampo MD Bioinformatics Team Member: Signed 24-Apr-2018 Dexa Bone Density Study Result: Comments: See Note; NOTES: [facility] Imaging Services [address] [place] [address] Dexa Bone Density Study MR#: [id number] Acct: [id number] Name: SACHIN SCHUSTER Rep #: [id number] : 1945 F 72 From: Mkiey Pierre MD PCP: Sade Ocampo MD Status: REG CLI Study: Dexa Bone Density Study Date of Exam: 04/24/18 Exam# [id number] Ordering Dr: Sade Ocampo MD STUDY: DUAL [...] Mikey Pierre MD at 14:05 EDT Tel [phone], Service support , CC: Sade Ocampo MD Bioinformatics Team Member: Signed 19-Apr-2018 Downtime Report Result: Comments: See Note; NOTES: [facility] Medical Records Department [address] [place] [address] Downtime Report MR#: [id number] Acct: [id number] Name: SACHIN SCHUSTER Rep #: [id number] : 1945 72 From: Donte De Jesus PCP: Sade Ocampo MD Status: REG CLI This patient was seen during an EMR downtime April 02, 2018 - April 09, 2018. This patient may have a combination of p aper and electronic documentation or all paper documentation. All documentation is viewable within the e-chart portion of [employer] for each patient visit. 17-Apr-[address] w/CCTA Result: Comments: See Note; NOTES: [facility] Imaging Services [address] [place] [address] w/CCTA MR#: [id number] Acct: [id number] Name: SACHIN SCHUSTER Rep #: [id number] : 1945 F 72 From: Mikey Pierre MD PCP: Sade Ocampo MD Status: REG CLI Study: Limited Chest CT w/CCTA Date of Exam: 04/17/18 Exam# [id number] Ordering Dr: Sade Ocampo MD STUDY: CT [...] Mikey Pierre MD at 15:38 EDT Tel [phone], Service support , CC: Sade Ocampo MD Bioinformatics Team Member: Signed 09-Apr-2018 SCREENING MAMM (CAD), BILAT Result: Comments: See Note; NOTES: [facility] Imaging Services [address] [place] [address], [place] [address] SCREENING MAMM (CAD), BILAT MR#: [id number] Acct: [id number] Name: SACHIN SCHUSTER Rep #: [id number] : 1945 F 72 From: Valentín Gross MD PCP: Sade Ocampo MD Status: REG CLI Study: SCREENING MAMM (CAD), BILAT Date of Exam: 04/09/18 Exam# [id number] Ordering Dr: Sade Ocampo MD MAMM OGRAPHY [...] delay biopsy of a clinically suspicious abnormality. [id number] Electronically Signed: Valentín Gross MD at 14:15 EDT Tel , Service support [phone], CC: Sade Ocampo MD Bioinformatics Team Member: Signed 30-Jan-2018 Hand Min 3 Views Result: Comments: See Note; NOTES: [facility] Imaging Services [address] [place] [address] Hand Min 3 Views MR#: [id number] Acct: [id number] Name: SACHIN SCHUSTER Rep #: [id number] D OB: 1945 F 72 From: Fernando Oliva DO PCP: Sade Ocampo MD Status: REG CLI Study: Hand Min 3 Views Date of Exam: 01/30/18 Exam# [id number] Ordering Dr: Sade Ocampo MD STUDY: X-RAY [...] Service support , CC: Sade Ocampo MD Bioinformatics Team Member: Signed 18-Dec-2017 Urgent Care Visit Report Result: Comments: See Note; NOTES: [address] [place], [place] [address] OFFICE VISIT Date of Service: 12/18/17 MR#: [id number] Acct: [id number] Name: SACHIN SCHUSTER p #: [id number] : 1945 Provider: Kyle JIMENEZ Age/Sex: 72/F Location: [facility] Status: Signed Intake Vital Signs12/18/17 Height 5 ft 2 in 12/18/17 Weight: 170 lb 8 oz 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 This note was generated with [employer] software. It may contain incorrect words, spelling, [...] with Pelvis Result: Comments: See Note; NOTES: [facility] Imaging Services [address] [place] [address] Verdana 4d Hip 2-3 Views with Pelvis MR#: [id number] Acct: [id number] Name: SACHIN SCHUSTER Rep #: [id number] : 1945 F 71 From: Mikey Pierre MD PCP: Sade Ocampo MD Status: [facility] CL Study: Hip 2-3 Views with Pelvis Date of Exam: 05/12/17 Exam# [id number] Ordering Dr: Kodi Ocampo MD STUDY: X-RAY [...] Mikey Pierre MD at 12:44 EDT Tel [phone], Service support , CC: Sade Ocampo MD Bioinformatics Team Member: Signed 12-May-2017 L/S Spine Min 4 Views Result: Comments: See Note; NOTES: [facility] Imaging Services [address] [place] [address] Verdana 4d L/S Spine Min 4 Views MR#: [id number] Acct: [id number] Name: SACHIN SCHUSTER p #: [id number] : 1945 F 71 From: Mkiey Pierre MD PCP: Sade Ocampo MD Status: REG CLI Study: L/S Spine Min 4 Views Date of Exam: 05/12/17 Exam# [id number] Ordering Dr: Sade Ocampo MD STUDY: X-RAY [...] Pierre MD a t 12:43 EDT Tel [phone], Service support , CC: Sade Ocampo MD Bioinformatics Team Member: Signed 29-Mar-2017 Breast Limited Unilateral Result: Comments: See Note; NOTES: [facility] Imaging Services [address] [place] [address] Verdana 4d Breast Limited Unilateral MR#: [id number] Acct: [id number] Name: SACHIN SCHUSTER Rep #: [id number] : 1945 F 71 From: Mikey Pierre MD PCP: Sade Ocampo MD Status: REG CLI Study: Breast Limited Unilateral Date of Exam: 03/29/17 Exam# [id number] Ordering Dr: Kodi Ocampo MD STUDY: ULTRASOUND [...] Mikey Pierre MD at 15:51 EDT Tel [phone], Service support , CC: Sade Ocampo MD Bioinformatics Team Member: Signed 22-Mar-2017 SCREENING MAMM (CAD), BILAT Result: Comments: See Note; NOTES: [facility] Imaging Services [address] [place] [address] Verdana 4d SCREENING MAMM (CAD), BILAT MR#: [id number] Acct: [id number] Name: HELLEN SCHUSTER Rep #: [id number] : 1945 F 71 From: Mikey Pierre MD PCP: Sade Ocampo MD Status: REG CLI Study: SCREENING MAMM (CAD), BILAT Date of Exam: 03/22/17 Exam# [id number] Ordering Dr: Sade Ocampo MD MAMMOGRAPHY - [...] delay biopsy of a clinically suspicious abnormality. [id number] Electronically Signed: Mikey Pierre MD at 8:05 EDT Tel [phone], Service support , CC: Sade Ocampo MD Bioinformatics Team Member: Signed 21-Jun-2016 PT D/C Summary (1) Result: Comments: See Note; NOTES: [facility] Physical Therapy Health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 Thank you for the referral of this patient. Sincerely, An carmel Cunningham <Electronically signed by Dora DODSON> 06/21/16 1695 CC: RADHA COTTRELL; Sade Ocampo MD; OUT OF TOWN DOCTOR Signed 25-May-2016 Re-Evaluation - PT (1) Result: Comments: See Note; NOTES: [facility] Physical Therapy [facility] [address] [place] [address] Fax [facility] MR#: [id number] Acct: [id number] Name: SACHIN SCHUSTER Rep #: [id number] : 1945 70 From: Dora DODSON Referring DrHien: OUT OF TOWN DOCTOR Status: REG RCR Insurance: MEDICARE PART A B AETNA Out of [facility] Doctor, RADHA COTTRELL It has been my [...] do not hesitate to contact me at [phone] by phone or if you have questions or concerns regarding this new plan of care! Sincerely, Dora Cunningham <Electronically signed by Dora Cunningham MPT> 05/25/16 191 CC: RADHA COTTRELL; Sade Ocampo MD; OUT OF [facility] DOCTOR Signed For Medicare only, by signing this I certify the pl an of care. Physicians Signature Date 29-Apr-2016 Inital Evaluation (1) - PT Result: Comments: See Note; NOTES: [facility] Physical Therapy [facility] [address] [place], [place] [address] Fax REHABILITATION SE RVICES INITIAL EVALUATION MR#: [id number] Acct: [id number] Name: SACHIN SCHUSTER Rep #: [id number] : 1945 70 From: Dora Cunningham MPT [...] walking in the house or at the [place] to see her mom. Pt had trouble [...] to be FAXED BACK to us at [phone] for Medicare purposes. Please let me kn [...] Only (Routine) Result: Comments: See Note; NOTES: [facility] Imaging Services [address] [facility] [place] [place] [address] Verdana 4d Lower Ext Joint Only (Routine) MR#: [id number] Acct: [id number] Na me: SACHIN SCHUSTER Rep #: [id number] : 1945 F 70 From: Hermann Inman MD PCP: Sade Ocampo MD Status: REG CLI Study: Lower Ext Joint Only (Routine) Date of Exam: 03/09/16 Exam# [id number] O jhoan Dr: Marck Armendariz STUDY: MRI [...] FACR at 8:04 EDT , Service support [phone], CC: MARCK ARMENDARIZ; Sade Ocampo MD Bioinformatics Team Member: Signed 28-Oct-2015 Bilat Scrn Digital AND CAD Result: Comments: See Note; NOTES: [facility] Imaging Services [address] [place] [address] Verdana 4d Bilat Scrn Digital AND CAD MR#: [id number] Acct: [id number] Name: SACHIN SCHUSTER Rep #: [id number] : 1945 F 69 From: Jose Elias Campbell MD PCP: Sade Ocampo MD Status: REG CLI Study: Bilat Scrn Digital AND CAD Date of Exam: 10/28/15 Exam# [id number] Ordering Dr: Sade Ocampo MD MAMMOGRAPHY - [...] delay biopsy of a clinically suspicious abnormality. [id number] Electronically Betsy d: Elijah Campbell MD at 11:23 EST Tel , Service support [phone], CC: Sade Ocampo MD Bioinformatics Team Member: Signed 28-Oct-2015 Dexa Bone Density Study (HP) Result: Comments: See Note; NOTES: [facility] Imaging Services [address] [place] [address] Verdana 4d Dexa Bone Density Study (HP) MR#: [id number] Acct: [id number] Name : SACHIN SCHUSTER Rep #: [id number] : 1945 F 69 From: Mikey Pierre MD PCP: Sade Ocampo MD Status: [facility] CL Study: Dexa Bone Density Study (HP) Date of Exam: 10/28/15 Exam# [id number] Ella lori Dr: Sade Ocampo MD STUDY: DUAL [...] Mikey Pierre MD at 8:33 EST Tel [phone], Service support [phone], CC: Sade Ocampo MD Bioinformatics Team Member: Signed 27-Oct-2014 Bilat Scrn Digital AND CAD Result: Comments: See Note; NOTES: [facility] Imaging Services [address] [place] [address] Breast Imaging Report MR#: [id number] Acct: [id number] Name: Leigh Ann SCHUSTER Rep #: [id number] : 1945 F 68 From: Jose Elias Campbell MD PCP: Sade Ocampo MD Status: REG CLI Study: Bilat Scrn Digital AND CAD Date of Exam: 10/27/14 Exam# [id number] Ordering Dr: Sade Ocampo MD MAMM OGRAPHY [...] Elijah Campbell MD at 14:42 EST Tel [phone], Service supp ort [phone], CC: Sade Ocampo MD Bioinformatics Team Member: Signed 17-Oct-2014 EKG (95857) Comments: see scanned document of test done to see results reviewed today with patient Result: [MEASUREMENTS ANALYSIS] Date of Test: 10/17/2014 10:58:06; Heart Rate: 77; MT Interval: 142; QRS: 96; QT Interval: 382; Corrected QT Interval (QTc): 411; P Wave [place]: 43; QRS Wave [place]: 10; T Wave [place]: -1; Blood Pressure: 120/80 [ECG DIAGNOSTIC STATEMENTS] Date of Test: 10/17/2014 10:58:06; Summary: Sinus Rhythm WITHIN NORMAL LIMITS 21-May-2014 Breast Unilateral Result: Comments: See Note; NOTES: [facility] Imaging Services [address] [place] [address] Ultrasound Report MR#: [id number] Acct: [id number] Name: Leigh Ann SCHUSTER Rep #: [id number] : 1945 F 68 From: Valentín Gross MD PCP: Sade Ocampo MD Status: REG CLI Study: Breast Unilateral Date of Exam: 05/21/14 Exam# [id number] Ordering Dr: Teodoro Humphries MD STUDY: ULTRAS [...] at 17:35 EDT Tel , Service support [phone], CC: Sade Ocampo MD; Teodoro Humphries MD Bioinformatics Team Member: Signed 25-Feb-2014 Upper Ext Joint Only(Routine) Result: Comments: See Note; NOTES: [facility] Imaging Services [address] [place] [address] MRI Report MR#: [id number] Acct: [id number] Name: Leigh Ann SCHUSTER Rep #: [id number] : 1945 F 68 From: Hossein Matos MD PCP: Sade Ocampo MD Status: REG CLI Study: Upper Ext Joint Only(Routine) Date of Exam: 02/25/14 Exam# [id number] Ordering Dr: Christian Beard DO STUDY: MRI [...] MD at 11:58 EDT , Service support [phone], CC: Sade Ocampo MD; Christian Beard Bioinformatics Team Member: Signed 14-Feb-2014 Shoulder min 2 Views Result: Comments: See Note; NOTES: [facility] Imaging Services [address] [facility] [address] Radiology Report MR#: [id number] Acct: [id number] Name: Leigh Ann SCHUSTER Rep #: [id number] : 1945 F 68 From: Mikey Pierre MD PCP: Sade Ocampo MD Status: REG CLI Study: Shoulder min 2 Views Date of Exam: 02/14/14 Exam# [id number] Ordering Dr: Christian Beard DO STUDY: X [...] Mikey Pierre MD at 14:06 EDT Tel [phone], Service support [phone], 0055 RAD/Shoulder min 2 Views IMPRESSION: Degenerative changes of the acromioclavicular joint. Electronically Signed: Mikey Pierre MD at 14:06 EDT Tel [phone], Service support [phone], CC : Sade Ocampo MD; Christian Beard Bioinformatics Team Member: Signed 16-Oct-2013 Breast Unilateral Result: Comments: See Note; NOTES: [facility] Imaging Services [address] [place] [address] Ultrasound Report MR#: [id number] Acct: [id number] Name: Leigh Ann SCHUSTER Rep #: [id number] : 1945 F 67 From: Mikey Pierre MD PCP: Sade Ocampo MD Status: REG CLI Study: Breast Unilateral Date of Exam: 10/16/13 Exam# [id number] Ordering Dr: Sade Ocampo MD STUDY: ULT [...] M.D. at 16:45 EST , Service support [phone], CC: Sade Ocampo MD Bioinformatics Team Member: Signed 11-Oct-2013 Bilat Scrn Digital & CAD Result: Comments: See Note; NOTES: [facility] Imaging Services [address] [place] [address] Breast Imaging Report MR#: [id number] Acct: [id number] Name: Leigh Ann SCHUSTER Rep #: [id number] : 1945 F 67 From: Mikey Pierre MD PCP: Sade Ocampo MD Status: REG CLI Exam# [id number] Ordering Dr: Sade Ocampo MD MAMMOGRAPHY - [...] M.D. 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 Comments: , Pentecostalism andimportant DPSHAMEKA schuster [phone] Status: Active No Caffeine Use Status: Active [...] 84 /min Comments: Pattern: Regular Respiration Rate 71247 /min Comments: Pattern: Unlabored O2 SAT 98 [...] 0.00 cm Results Date Description Value Details 00-Zeh-697375:55 Anti TPO Antibody (11807) Comments: PATIENT NOT FASTINGPERFORMED BY: [employer] [facility] OuiPeak Behavioral Health ServicesDddwid3944 [facility] [id number] Thyroid Peroxidase (TPO) Ab 21 {IU/mL} (Normal) Range: 0-34 60-Wnq-163933:55 TSH (18732) Comments: PATIENT NOT FASTINGPERFORMED BY: Flared3DMorristown Medical CenterJczlzg9657 [facility] [id number] TSH 0.967 {uIU/mL} (Normal) Range: 0.450-4.500 19-Wqz-140582:55 T4, FREE (THYROXINE) (14631) Comments: PATIENT NOT FASTINGPERFORMED BY: [employer] Nmwsuh5137 [facility] [id number] T4,Free(Direct) 1.50 ng/dL (Normal) Range: 0.82-1.77 04-Chd-746615:55 T3, FREE (TRIDOTHYRONINE) (73647) Comments: PATIENT NOT FASTINGPERFORMED BY: [facility] TechnologiesBe[facility] Hospital6370 [facility] [id number] Triiodothyronine (T3), Free 3.3 pg/mL (Normal) Range: 2.0-4.4 :08 LIBBY CULTURE-OTHER (59820) Comments: PATIENT NOT FASTINGPERFORMED BY: [facility] Technologies[facility] Hospital6370 [facility] [id number] Information: SRC: Result 1 RRF (Normal) Comments: Routine respiratory fredo Upper Respiratory Culture Final report (Normal) 10-Fdu-211539:52 Rapid Strep Test, Office (29964) Rapid Strep Test, Office Negative (Normal) 74-Mqi-537611:51 FLU A+B DIRECT AG, (RAPID) (32258) FLU A+B DIRECT AG, (RAPID) negative (Normal) 6-Mua-477560:09 LDL, Direct Comments: Comments: [facility] (refer to report for specific site)refer to report for address and phone number; fu 18 db COMMENT Test not performed (Normal) LDL,DIR 600491 147 mg/dL (Abnormal) Range: 0-99 Comments: Performed at: [facility] [employer] [id number] Director: Steve Carey PhD, Phone: [phone] Triglycerides Comments: Comments: [facility] [address] [place], [address] TRIG 117 mg/dL (Normal) Comments: [...] ECLIA methodology Nonsmokers <3.9 Smokers <5.6Performed at: [employer] [id number] Director: Steve Carey PhD, Phone: [phone] 21-Tfm-992139:27 CRP Comments: [facility] [address] [place], [address] C-REACTIVE PROT 5.31 mg/L (Abnormal) Range: 0.0-3.0 Comments: C-Reactive Protein (CRP) provides useful information for thediagnosis, therapy and monitoring of inflammatory processesand associated diseases. For the evaluation of Relative Riskfor Cardiovascular Dise ase, a High Sensitivity CRP (HSCRP)should be ordered. 50-Twg-029269:27 Erythrocyte Sed Rate Comments: [facility] [address] [place], [place], [address] SED RATE 3 mm/h (Normal) Range: 0-30 42-Dhh-444065:27 URINE HISTOPLASMA ANTIGEN Comments: [facility] (refer to report for specific site)refer to report for address and phone number UR Comments: TEST RESULT LIMITSHistoplasma Gal'krys Ag Ur <0.5 <0.5 ng/mLDisclaimer: This test was developed and its performance characteristics determined by [employer]IZO (Ana) Tyron. It has not been cleared or approved by the Food and Drug Administration. [facility] ORIGINAL REPORT ON FILE IN LAB AG CONTAINS ADDITIONAL TEST SITE INFORMATION. 1-Uyj-783861:26 Metabolic Panel, Basic (31432) Comments: PATIENT NOT FASTINGPERFORMED BY: [facility] Tqyous1677 [facility] [id number] Calcium 10.0 mg/dL (Normal) Range: 8.7-10.3 Carbon [...] 8-27 Glucose 113 mg/dL (Abnormal) Range: 65-99 93-Xln-115089:23 Metabolic Panel, Comprehensive Comments: PATIENT NOT FASTINGPERFORMED BY: [facility]CoMor[facility] CenterVyvvur8537 [facility] [id number] (73810) ALT (SGPT) 23 [iU]/L (Normal) Range: 0-32 [...] 8-27 Glucose 94 mg/dL (Normal) Range: 65-99 65-Gst-105938:23 CBC WITH MANUAL DIFF Comments: PATIENT NOT FASTINGPERFORMED BY: [facility]CoMor[facility] CenterIpsfys1884 [facility] [id number] Information: NURSE DRAW; fu DB 6-8 (49930) Immature Grans (Abs) 0.0 {x10E3/uL} (Normal) Range: [...] 3.77-5.28 WBC 3.2 {x10E3/uL} (Abnormal) Range: 3.4-10.8 48-Len-808130:23 MICROALBUMIN: CREATININE RATIO Comments: PATIENT NOT FASTINGPERFORMED BY: [employer] Seujvy9158 [facility] [id number] (07032) AND (46667) Alb/Creat Ratio 5.3 {mg/g_creat} (Normal) Range: 0.0-30.0 Albumin, Urine 3.7 ug/mL (Normal) Creatinine, Urine 70.0 mg/dL (Normal) 52-Gwz-293241:23 URINALYSIS (78292) Comments: PATIENT NOT FASTINGPERFORMED BY: [facility] dit OuiMorristown Medical CenterVswidy8771 [facility] [id number] Microscopic Examination MICNIP (Normal) Comments: Microscopic not indicated and not performed. Nitrite, Urine Negative (Normal) Urobilinogen,Semi-Qn 0.2 mg/dL (Normal) Range: 0.2-1.0 Bilirubin Negative (Normal) Occult Blood Negative (Normal) Ketones Negative (Normal) Glucose Negative (Normal) Protein Negative (Normal) WBC Esterase Negative (Normal) Appearance Clear (Normal) Urine-Color Yellow (Normal) pH 6.5 (Normal) Range: 5.0-7.5 Specific [place] 1.018 (Normal) Range: 1.005-1.030 18-Bqg-158455:30 Culture, R/O Strep A Comments: [facility] [address] [place], [place], [id number] CUSTREPA See Note (Normal) Comments: AVERY CultureNo Group A Beta Streptococcus isolated. * This cultures intended use is to screen for Beta Streptococcus A only. All other pathogens and potential pathogens will not be screened for or rep orted. If a complete workup of all potential pathogens is indicated an order for a routine throat culture is required. 4-Mcd-654813:10 ANTINUCLEAR ANTIBODIES DIRECT Comments: [facility] (refer to report for specific site)refer to report for address and phone number MILTON-DIRECT Negative (Normal) Comments: Performed at: [address] [id number] Director: Steve Carey PhD, Phone: [phone] 2-Gkm-666243:10 Ferritin Comments: [facility] [address] [place], [place], [address] FERRITIN 251 ng/mL (Normal) Range: 8-252 09-Dbg-775573:40 Methymalonic Acid, Serum Comments: today; PATIENT NOT FASTINGPERFORMED BY: [employer] [id number] BY: [address] [id number] ([id number]) Methylmalonic Acid, Serum 198 nmol/L (Normal) Range: 0-378 03-Kqj-944621:40 Vitamin B-12 Comments: today; PATIENT NOT FASTINGPERFORMED BY: [employer] [id number] BY: [employer] [id number] (cyanocobalamin) (77275) Vitamin B12 353 pg/mL (Normal) Range: 211-946 70-Tpi-907812:23 HEPATITIS C ANTIBODY Comments: PATIENT NOT FASTINGPERFORMED BY: [facility] Ovewxk4049 Arsenio PrestonAtrium Health Steele Creek [id number] Information: NURSE DRAW (31753) Hep C Virus Ab <0.1 {s/co_ratio} (Normal) Range: 0.0-0.9 Comments: Negative: < 0.8 Indeterminate: 0.8 - 0.9 Positive: > 0.9 . The CDC recommends that a positive HCV antibody result be followed up with a HCV Nucleic Acid Amplification test (122189). :57 Alanine Aminotransferas (SGPT) Comments: DR.CHARLICK VERDIN.[facility] [address] [place], [address] ALT 32 U/L (Normal) Range: 12-78 :57 ALB/GLOB Ratio Comments: DR.CHARLICK VERDIN.[facility] [address] [place], [address] A/G 1.2 {RATIO} (Normal) Range: 0.9-2.4 :57 Albumin, Serum Comments: DR.CHARLICK VERDIN.[facility] [address] [place], [address] ALB 3.7 g/dL (Normal) Range: 3.4-5.0 :57 Alkaline Phosphatase Comments: DR.CHARLICK VERDIN.[facility] [address] [place], [address] ALK P 93 U/L (Normal) Range: 50-136 :57 AST(SGOT) Comments: DR.CHARLICK VERDIN.[facility] [address] [place], [place], [address] AST 22 U/L (Normal) Range: 15-37 :57 Basic Metabolic Profile (BMP) Comments: DR.CHARLICK VERDIN.[facility] [address] [place], [place], [address] GAP 8 (Normal) Range: 5-15 CO2 26.0 [...] Range: 70-110 :57 Bilirubin, Total Comments: DR.CHARLICK VERDIN.[facility] [address] [place], [place], [address] T BILI 0.50 mg/dL (Normal) Range: 0.20-1.00 :57 Globulin Comments: DR.CHARLICK VERDIN.[facility] [address] [place], [place], [address] GLOB 3.1 g/dL (Normal) Range: 2.3-3.5 :57 Lipid Profile Comments: DR.CHARLICK VERDIN.[facility] [address] [place], [address](465) VLDL 17 mg/dL (Normal) Range: 5-40 LDL [...] High Risk :57 Protein, Total Comments: DR.CHARLICK VERDIN.[facility] Lchrxmvirt1856 [facility] [place], [address] T PROT 6.8 g/dL (Normal) Range: 6.4-8.2 :57 Thyroid Stim Hormone (TSH) Comments: DR.CHARLICK VERDIN.[facility] Qygprfuwgu8067 [facility] [place], [address] TSH 1.36 {uIU/mL} (Normal) Range: 0.358-3.74 85-Kzl-836483:40 Rapid Flu (26542 x 2) Comments: neg Influenza A Ag negative (Normal) 66-Emc-80260:47 CBC W/Diff, Automated Comments: [facility] [address] [place] [address], [address] ; [address] Absolute Lymph 1.25 [...] 4.2-5.4 WBC 3.5 K/mm3 (Abnormal) Range: 4.4-11.0 27-Njy-72211:47 Comprehensive Metabolic Profil Comments: [facility] [address] [place], [address] GAP 9 (Normal) Range: 5-15 CO2 25.0 [...] (Normal) Range: 70-110 :47 Lipid Profile Comments: [facility] [address] [place], [place], [address] VLDL 28 mg/dL (Normal) Range: 5-40 LDL [...] Risk :47 Thyroid Stim Hormone (TSH) Comments: [facility] [address] [place], [address] TSH 1.13 {uIU/mL} (Normal) Range: 0.358-3.74 :47 Vitamin D,25 Hydroxy Comments: [facility] [address] [place], [place], [address] Vitamin D 25-OH 41.2 ng/mL (Normal) Comments: Vitamin D 25(OH) Status Range Deficiency <20 ng/mL (50nmol/L) Insuffciency 20 - 30 ng/mL (50 - 75 nmol/L) Sufficiency 30 - 100 ng/mL (75 - 250 nmol/L) Toxicity >100 ng/mL (>250 nmol/L) :53 URINALYSIS (92860) Comments: PATIENT NOT FASTINGPERFORMED BY: [facility] [id number] Information: [id number] Microscopic Examination MICNIP (Normal) Comments: Microscopic not indicated and not performed. Nitrite, Urine Negative (Normal) Urobilinogen,Semi-Qn 0.2 mg/dL (Normal) Range: 0.0-1.9 Bilirubin Negative (Normal) Occult Blood Negative (Normal) Ketones Negative (Normal) Glucose Negative (Normal) Protein Negative (Normal) WBC Esterase Negative (Normal) Appearance Clear (Normal) Urine-Color Yellow (Normal) pH 7.5 (Normal) Range: 5.0-7.5 Specific Clinton 1.015 (Normal) Range: 1.005-1.030 7-Knx-236945:53 URINE LIBBY CULTURE-IDENTIFICATN Comments: PATIENT NOT FASTINGPERFORMED BY: [facility]CoMor[facility]own Medical CenterZkvxjj2747 [facility] [id number] ([id number]) Result 1 NG36 (Normal) Comments: No growth in 36 - 48 hours. Urine Culture,Comprehensive Final report (Normal) 70-Qiz-86188:22 CBC W/Diff, Automated Comments: Test performed at:[facility] [address] [place], [place] [address] Absolute Lymph 1.45 {X10_3/ul} (Normal) Range: 0.83-4.51 [...] :22 Comprehensive Metabolic Profil Comments: Test performed at:[facility] [address] [place] [address] GAP 6 (Normal) Range: 5-15 CO2 28.0 [...] 70-110 :22 Lipid Profile Comments: Test performed at:[facility] [address] [place] [address] VLDL 27 mg/dL (Normal) Range: [...] :22 Microalb:Creat Ratio,Random UR Comments: Test performed at:[facility] [address] [place] [address] MALB:CREAT 7.1 {mg/g_CRE} (Normal) MICROALBUMIN,UR 18.2 mg/L (Normal) UR CREAT 256.0 mg/dL (Normal) :22 Urinalysis, Complete Comments: How was Urine Obtained? CLEAN CATCHTest performed at:[facility] [address] [place] [address] CA OX CRYSTAL 1+ {/hpf} [...] CLARITY Sl. Cloudy (Normal) COLOR Yellow (Normal) 04-Wbc-08219:22 Vitamin D,25 Hydroxy Comments: Test performed at:[facility] [address] [place] [address] Vitamin D 25-OH 44.6 ng/mL (Normal) Comments: Vitamin D 25(OH) Status Range Deficiency <20 ng/mL (50nmol/L) Insuffciency 20 - 30 ng/mL (50 - 75 nmol/L) Sufficiency 30 - 100 ng/mL (75 - 250 nmol/L) Toxicity >100 ng/mL (>250 nmol/L) 77-Yii-614593:55 CBCD ANC 2.4 {X10_3/uL} (Normal) Range: 2.0-7.7 [...] 4.2-5.4 WBC 4.4 K/mm3 (Normal) Range: 4.4-11.0 32-Ygp-029490:55 CMP GAP 8 (Normal) Range: 5-15 CL [...] 7-18 GLU 94 mg/dL (Normal) Range: 70-110 03-Umq-900120:55 UA Comments: How was Urine Obtained? CLEAN CATCH ANA 100 /ul (Abnormal) UOB 10 /ul (Abnormal) PRATEEK Negative (Normal) UROBU Normal mg/dL (Normal) VASQUEZ 6.0 (Normal) Range: 5.0 - 8.0 uPROTU Negative mg/dL (Normal) SGU 1.020 (Normal) Range: 1.002-1.030 KETU Negative mg/dL (Normal) BILIU Negative mg/dL (Normal) GLUR Normal mg/dL (Normal) UCLAR Clear (Normal) UCOL Yellow (Normal) 99-Rxn-957750:23 Microscopic Examination Comments: PATIENT WAS FASTINGPERFORMED BY: [facility]CoMorristown Medical CenterDczicg1551 [facility] [id number] Bacteria None seen (Normal) Mucus Threads Present (Normal) Epithelial Cells (non renal) 0-10 {/hpf} (Normal) Range: 0 - 10 RBC None seen {/hpf} (Normal) Range: 0 - 3 WBC 0-5 {/hpf} (Normal) Range: 0 - 5 56-Xpx-969457:51 BILAT SCRN DIGITAL & CAD Radiology Report [...] Pierre M.D.October 09, 2012 at 12:29:05 PM [id number] Signed GP/GP If you are the referring physician and would like to consult with theradiologist who provided this interpretation, please contact Santos Chatterjee at [phone]. If this radiologist is unavailable, youwill be directed to another radiologi st to assist. If you are a patient with a question regarding this report, pleasecontactyour referring physician directly. Professional Interpretation Provided By: [employer], Phone ,Fax These documents contain legally protected [...] documents. Dictated on 10/09/12 1152 by Gabby TERRY,GabrieleTranscribed on 10/09/12 1234 by ITS IMPORTSign by Gabby TERRY,Mikey on 10/09/12 1235 Si gn by: Mikey Pierre MD 99-Rur-809177:23 URINALYSIS, W/ MICRO (53958) Comments: PATIENT WAS FASTINGPERFORMED BY: UtiliDataAt[facility] [id number] Microscopic Examination See below: (Normal) Microscopic Examination MICRON (Normal) Comments: Microscopic follows if indicated. Nitrite, Urine Negative (Normal) Urobilinogen,Semi-Qn 1.0 mg/dL (Normal) Range: 0.0-1.9 Bilirubin Negative (Normal) Occult Blood Negative (Normal) Ketones Negative (Normal) Glucose Negative (Normal) Protein Negative (Normal) WBC Esterase Negative (Normal) Appearance Clear (Normal) Urine-Color Yellow (Normal) pH 7.5 (Normal) Range: 5.0-7.5 Specific [place] 1.021 (Normal) Range: 1.005-1.030 17-Ere-441226:23 MICROALBUMIN: CREATININE RATIO Comments: PATIENT WAS FASTINGPERFORMED BY: [employer]6370 [facility] [id number] ([id number]) AND (69352) Microalb/Creat Ratio 3.0 {mg/g_creat} (Normal) Range: 0.0-30.0 Microalbumin, Urine 2.5 ug/mL (Normal) Range: 0.0-17.0 Creatinine, Urine 82.1 mg/dL (Normal) Range: 15.0-278.0 81-Zpk-968771:23 METABOLIC PANEL, COMPREHENSIVE Comments: PATIENT WAS FASTINGPERFORMED BY: [facility] [id number] ([id number]) ALT (SGPT) 29 [iU]/L (Normal) Range: 0-32 [...] Glucose, Serum 93 mg/dL (Normal) Range: 65-99 94-Qel-290145:23 LIPID PANEL (70596) Comments: PATIENT WAS FASTINGPERFORMED BY: [facility] Tstekm4323 [facility] [id number] LDL/HDL Ratio 3.0 {ratio_units} (Normal) Range: 0.0-3.2 LDL Cholesterol Calc 145 mg/dL (Abnormal) Range: 0-99 HDL Cholesterol 49 mg/dL (Normal) Comments: According to ATP-III Guidelines, HDL-C >59 mg/dL is considered anegative risk factor for CHD. VLDL Cholesterol Brayden 22 mg/dL (Normal) Range: 5-40 Triglycerides 110 mg/dL (Normal) Range: 0-149 Cholesterol, Total 216 mg/dL (Abnormal) Range: 100-199 44-Gtp-776223:23 CBC WITH MANUAL DIFF Comments: PATIENT WAS FASTINGPERFORMED BY: [facility]6370 [facility] [id number] Information: [id number] (14030) Immature Grans (Abs) 0.0 {x10E3/uL} (Normal) Range: [...] 3.77-5.28 WBC 3.6 {x10E3/uL} (Abnormal) Range: 4.0-10.5 1-Tos-762614:23 KNEE,4 OR MORE VIEWS Radiology Report See [...] radiologist regarding this report, please call our [id number] line @ Dictated on 12/30/11 1234 by WALTER KAY MDTranscribed on 12/30/11 1655 by ITS IMPORTSign by WALTER KAY MD on 12/30/111655 Sign by: WALTER KAY MD 51-Vvd-847990:59 Microscopic Examination Comments: PATIENT WAS FASTINGPERFORMED BY: [employer]6370 [facility] CenterSolidmationAtrium Health [facility] [id number] Bacteria None seen (Normal) Mucus Threads Present (Normal) Epithelial Cells (non renal) 0-10 {/hpf} (Normal) Range: 0 - 10 RBC 0-3 {/hpf} (Normal) Range: 0 - 3 WBC 0-5 {/hpf} (Normal) Range: 0 - 5 39-Euw-458572:59 URINALYSIS, W/ MICRO (77154) Comments: PATIENT WAS FASTINGPERFORMED BY: [employer]6370 Cesar [facility]arFirstHealth [facility] [id number] Microscopic Examination See below: (Normal) Microscopic Examination MICRON (Normal) Comments: Microscopic follows if indicated. Nitrite, Urine Negative (Normal) Urobilinogen,Semi-Qn 0.2 mg/dL (Normal) Range: 0.0-1.9 Bilirubin Negative (Normal) Occult Blood Negative (Normal) Ketones Negative (Normal) Glucose Negative (Normal) Protein Negative (Normal) WBC Esterase Negative (Normal) Appearance Clear (Normal) Urine-Color Yellow (Normal) pH 6.0 (Normal) Range: 5.0-7.5 Specific Clinton 1.018 (Normal) Range: 1.005-1.030 :59 MICROALBUMIN: CREATININE RATIO Comments: PATIENT WAS FASTINGPERFORMED BY: Flared3DMorristown Medical CenterHebtod6168 [facility] [id number] (10188) AND (06710) Microalb/Creat Ratio 4.3 {mg/g_creat} (Normal) Range: 0.0-30.0 Creatinine, Urine 98.4 mg/dL (Normal) Range: 15.0-278.0 Microalbumin, Urine 4.2 ug/mL (Normal) Range: 0.0-17.0 :59 METABOLIC PANEL, COMPREHENSIVE Comments: PATIENT WAS FASTINGPERFORMED BY: [employer]6370 [facility] [id number] (88359) ALT (SGPT) 29 [iU]/L (Normal) Range: 0-40 [...] Glucose, Serum 99 mg/dL (Normal) Range: 65-99 66-Vxf-652657:59 LIPID PANEL (70476) Comments: PATIENT WAS FASTINGPERFORMED BY: [employer]70 [facility]esarSaint [facility] System [id number] LDL/HDL Ratio 3.0 {ratio_units} (Normal) Range: 0.0-3.2 LDL Cholesterol Calc 146 mg/dL (Abnormal) Range: 0-99 VLDL Cholesterol Brayden 20 mg/dL (Normal) Range: 5-40 HDL Cholesterol 48 mg/dL (Normal) Comments: According to ATP-III Guidelines, HDL-C >59 mg/dL is considered anegative risk factor for CHD. Cholesterol, Total 214 mg/dL (Abnormal) Range: 100-199 Triglycerides 102 mg/dL (Normal) Range: 0-149 :59 CBC WITH MANUAL DIFF (09024) Comments: PATIENT WAS FASTINGPERFORMED BY: [employer]6370 [facility] [id number] Immature Grans (Abs) 0.0 {x10E3/uL} (Normal) Range: [...] 3.80-5.10 WBC 3.7 {x10E3/uL} (Abnormal) Range: 4.0-10.5 8-Tig-579327:15 BILAT SCRN DIGITAL & CAD Radiology Report [...] a clinicall y suspiciousabnormality. Dictated on 10/04/11 4447 by Gabby TERRY,GabrieleTranscribed on 10/04/11 1601 by ITS IMPORTSign by Mikey Pierre MD on 10/04/11 1602 Sign by: Mikey Pierre MD 44-Wkb-797324:06 BMP Comments: appt 04/12/11 GAP 8 (Normal) [...] (Normal) Comments: Result: NEGATIVE COLOR YELLOW (Normal) 84-Wba-414348:54 CBCD,SMEAR DIFF RED CELL MORPH SeeNote {NORMAL} [...] 47-70 WBC 3.2 K/mm3 (Abnormal) Range: 4.4-11.0 96-Clr-121632:54 COMP METABOLIC GAP 12 (Normal) Range: 5-15 [...] CHOL 207 mg/dL (Abnormal) Comments: <200 mg/dL Aygimyvxi371-555 mg/dL Borderline>240 mg/dL High Risk HDL 46 [...] mg/L (Normal) UR CREAT 27.6 mg/dL (Normal) 0-Dip-385001:53 BILAT SCRN DIGITAL & CAD Radiology Report See Note (Normal) Comments: Exam Number: [id number] MAMMOGRAM, BILATERAL SCREENING DIGITAL AND CAD HISTORYRoutine [...] werealso examined with computer- aided detection software ([employer], [employer] Reported By: ANANYA ORTIZ M.D. 80-Fnu-490961:28 LOWER EXT/JT ONLY (ROUTINE) Radiology Report See Note (Normal) Comments: Exam Number: [id number] CLINICAL:63-year-old female with a 5-week history of [...] mg/dL VLDL 20 mg/dL (Normal) Range: 5-40 22-Cnx-172850:00 BILAT SCRN DIGITAL & CAD Radiology Report See Note (Normal) Comments: Exam Number: [id number] MAMMOGRAM, BILATERAL SCREENING DIGITAL AND CAD HISTORYRoutine [...] mammograms werealso examined with computer-aided detection software ([employer], [employer] Reported By: ANANYA ORTIZ M.D. 02-Nov-20078:51 [...] 3.5-5.1 NA 142 mmol/L (Normal) Range: 136-145 87-Ebr-725316:13 Urinalysis, Office (35957) UA - BILIRUBIN Negative (Normal) UA - BLOOD Non Hemolyzed Trace (Normal) UA - GLUCOSE Negative (Normal) UA - KETONES Negative mg/dL (Normal) UA - LEUKOCYTE ESTERASE Trace (Normal) UA - NITRITE Negative (Normal) UA - PH 6.0 (Normal) UA - PROTEIN Negative mg/dL (Normal) UA - SPECIFIC GRAVITY 1.020 (Normal) URINE UROBILINGN PAKO TIMED 2 mg/dL (Normal) 16-Jbv-251539:11 BILAT SCRN DIGITAL & CAD Radiology Report See Note (Normal) Comments: Exam Number: [id number] MAMMOGRAM, BILATERAL SCREENING DIGITAL AND CAD HISTORYRoutine [...] werealso examined with compute r-aided detection software ([employer], Inc.). Reported By: ANANYA ORTIZ M.D. 76-Cpw-202050:24 Microscopic Examination Comments: PATIENT NOT FASTINGPERFORMED BY: LabCoMorristown Medical CenterLblslw2142 [facility] [id number] Bacteria Moderate (Abnormal) Crystal Type Calcium Oxalate (Normal) Comments: Amorphous Sediment Crystals Present (Abnormal) Epithelial Cells (non renal) >10 {/hpf} (Abnormal) Range: 0 - 10 Mucus Threads Present (Abnormal) RBC None seen {/hpf} (Normal) Range: 0 - 3 WBC 0-5 {/hpf} (Normal) Range: 0 - 5 Yeast Present (Abnormal) 97-Twl-204534:24 URINALYSIS W/O MICRO (36589) Comments: PATIENT NOT FASTINGPERFORMED BY: Jaba TechnologiesBeaumont Hospital6370 [facility] [id number] Appearance Clear (Normal) Bilirubin Negative (Normal) Glucose Negative (Normal) Ketones Negative (Normal) Microscopic Examination See below: (Normal) Nitrite, Urine Negative (Normal) Occult Blood Negative (Normal) pH 5.5 (Normal) Range: 5.0-7.5 Protein Negative (Normal) Specific Clinton 1.023 (Normal) Range: 1.005-1.030 Urine-Color Yellow (Normal) Urobilinogen,Semi-Qn 0.2 mg/dL (Normal) Range: 0.0-1.9 WBC Esterase 1+ (Abnormal) 63-Syn-724325:24 METABOLIC PANEL, COMPREHENSIVE Comments: PATIENT NOT FASTINGPERFORMED BY: Flared3DMorristown Medical CenterCybleg6884 [facility] [id number] (21436) A/G Ratio 2.0 (Normal) Range: 1.1-2.5 Albumin, [...] Sodium, Serum 143 mmol/L (Normal) Range: 135-148 66-Vzx-472001:24 CBC WITH MANUAL DIFF (78515) Comments: PATIENT NOT FASTINGClinical Information: ADD DRAW FEE [id number] ADD J 06774 PERFORMED BY: PAYAL LabCoKristen Ville 8127170 [facility] [id number] Baso (Absolute) 0.0 {x10E3/uL} (Normal) Range: 0.0-0.2 [...] Normal throat fredo isolated. No beta-hemolyticstreptococcus isolated. 69-Aao-996231:20 CHEST, PA AND LATERAL Radiology Report See Note (Normal) Comments: Exam Number: [id number] PA AND LATERAL CHEST HISTORYShortness of breath, [...] T PROT 7.1 g/dL (Normal) Range: 6.4-8.2 17-Blu-53522:01 PFLIP CHOL 219 mg/dL (Abnormal) Comments: <200 [...] Symptoms Indication: Bronchitis Planned Observations LIPID PANEL (23898)Indication: Hypercholesterolemia On: 42-Tcz-069797:09 Request METABOLIC PANEL, COMPREHENSIVE (75193)Indication: Hypercholesterolemia On: 23-Dtu-079890:09 Request TRIGLYCERIDES (26756)Indication: Hypercholesterolemia On: 8-Gil-855236:21 Request LDL CHOLESTEROL-DIRECT (46033)Indication: Hypercholesterolemia On: 3-Rue-523664:21 Request Metabolic Panel, Basic (73895)Indication: Hypertension On: 60-Fzc-590841:19 Request Metabolic Panel, Comprehensive (70138)Indication: Hypertension On: 90-Cog-783090:05 Request Comments: in six months (approximately) CBC, Platelets & Auto Diff (58849)Indication: Hypertension On: 69-Yra-596966:05 Request CALCIFIDIOL (47733) VIT D 25Indication: Preoperative clearance On: :32 Request Lipid Panel (29171)Indication: Preoperative clearance On: 40-Rue-731759:32 Request Metabolic Panel, Comprehensive (34503)Indication: Preoperative clearance On: :32 Request TSH (83632)Indication: Preoperative clearance On: :32 Request CBC WITH MANUAL DIFF (35351)Indication: Preoperative clearance On: :32 Request CBC, Platelets & Auto Diff (63214)Indication: Alteration of body temperature On: 69-Fhg-001490:02 Request Metabolic Panel, Basic (21838)Indication: Hypertension On: 06-Oct-20158:43 Request URINALYSIS, W/ MICRO (39917)Indication: Hypertension On: 0-Jgt-246358:03 Request METABOLIC PANEL, COMPREHENSIVE (55988)Indication: Hypertension On: :03 Request LIPID PANEL (89983)Indication: Hypertension On: :02 Request CBC with auto diff (70946)Indication: Hypertension On: :02 Request CALCIFEDIOL (81804)Indication: Hypertension On: :17 Request TSH (11828)Indication: Hypertension On: :16 Request CBC WITH MANUAL DIFF (28669)Indication: Hypertension On: 37-Rzk-111737:16 Request Lipid Panel (56510)Indication: Hypercholesterolemia On: :16 Request Metabolic Panel, Comprehensive (41989)Indication: Hypertension On: 39-Dfc-746030:16 Request CALCIFIDIOL (94483) VIT D 25Indication: Benign breast cyst in female On: 29-Izh-240253:39 Request URINALYSIS, W/ MICRO (85203)Indication: Hypertension On: 02-Mab-402568:38 Request MICROALBUMIN: CREATININE RATIO (79390) AND (64291)Indication: Hypertension On: 31-Ztd-632732:38 Request METABOLIC PANEL, COMPREHENSIVE (86272)Indication: Hypertension On: 14-Azn-051774:38 Request LIPID PANEL (81555)Indication: Hypertension On: 97-Mtl-931234:38 Request CBC WITH MANUAL DIFF (50672)Indication: Hypertension On: :38 Request URINALYSIS (83884)Indication: Hypertension On: 54-Ozf-225038:12 Request CBC with manual diff (11385)Indication: Hypertension On: :53 Request Lipid Panel (58303)Indication: Hypertension On: :52 Request Metabolic Panel, Comprehensive (62449)Indication: Hypertension On: :52 Request Metabolic Panel, Basic (48230)Indication: Hypertension On: 59-Pjc-361833:12 Request METABOLIC PANEL, BASIC (90352)Indication: Hypertension On: 39-Lip-638326:27 Request MICROALBUMIN: CREATININE RATIO (52255) AND (81177)Indication: Hypercholesterolemia On: :39 Request CBC, PLATELETS & AUT DIFF (53283)Indication: Hypercholesterolemia On: :39 Request URINALYSIS (98555)Indication: Hypercholesterolemia On: :39 Request LIPID PANEL (81061)Indication: Hypercholesterolemia On: :39 Request METABOLIC PANEL, COMPREHENSIVE (39092)Indication: Hypercholesterolemia On: :39 Request URINALYSIS, W/ MICRO (69456)Indication: Hypertension On: :58 Request MICROALBUMIN: CREATININE RATIO (58401) AND (66510)Indication: Hypertension On: :58 Request METABOLIC PANEL, COMPREHENSIVE (86494)Indication: Hypertension On: :58 Request LIPID PANEL (87923)Indication: Hypertension On: :58 Request CBC WITH MANUAL DIFF (21069)Indication: Hypertension On: :58 Request Rapid Strep Test, Office (16473)Indication: Pharyngitis, acute On: 88-Mws-71129:54 Request LIBBY CULTURE-OTHER (78172)Indication: Pharyngitis, acute On: 27-Fxi-88033:54 Request LIPID PANEL (29125)Indication: Hypercholesterolemia On: :11 Request HEPATIC FUNCTION PANEL (31911)Indication: Hypercholesterolemia On: 6-Pmh-862055:11 Request Comments: in six months CBC WITH MANUAL DIFF (80496)Indication: Hypertension On: 15-Ykn-828791:35 Request LIPID PANEL (20249)Indication: Hypertension On: 81-Rwf-556436:34 Request METABOLIC PANEL, COMPREHENSIVE (63399)Indication: Hypertension On: 21-Jbp-778206:34 Request Planned Encounters Medical; [facility] 4 Month Fu - On: 15-Jan-2019 11:30 [facility] Damaris TERRY, Sade Butt MD Planned Procedures EsophagramBy: Sade Ocampo MD On: 26-Sep-2018 Intent Sade Ocampo MD Comments: with a 12 mm tablet swallow Ultrasound - ThyroidBy: Damaris TERRY, On: 11-Sep-2018 Intent Sade Butt MD DEXA SCAN AXIAL SKELETON (77475)By: On: 06-Apr-2018 Intent Sade Ocampo MD, MD, Dana M MAMMOGRAM BREAST BILATERAL On: 16-Mar-2018 Intent SCREENING DIGITAL (70449)By: Sade Ocampo MD, MD, Dana M EKG (56531)By: Sade Ocampo MD On: 13-Feb-2018 Intent Sade Ocampo MD Radiology - Hand - RightBy: Damaris On: 29-Jan-2018 Intent Sade TERRY MD, Dana M Radiology - Hip - LeftBy: Damaris On: 12-May-2017 Intent Sade TERRY MD, Dana M Radiology - Lumbar SpineBy: Damaris On: 12-May-2017 Intent Sade TERRY MD, Dana M MAMMOGRAM BREAST BILATERAL On: 13-Mar-2017 Intent SCREENING DIGITAL (82356)By: Sade Ocampo MD, MD, Dana M Aerosol Treatment (26325)By: Bianca On: 20-Jan-2016 Intent Dora RG MAMMOGRAM, SCREENING, BOTH BREAST On: 02-Oct-2015 Intent (50396)By: Sade Ocampo MD, MD, Dana M Bone Density StudyBy: Damaris TERRY, On: 02-Oct-2015 Intent Sade Butt MD BILATERAL MAMMOGRAMS ([id number])By: On: 21-Sep-2015 Intent Sade Ocampo MD, MD, Dana M Prevnar 13 ([id number])By: Damaris TERRY, On: 17-Oct-2014 Intent Sade Butt MD BILATERAL MAMMOGRAMS ([id number])By: On: 16-Sep-2014 Intent Sade Ocampo MD, MD, Dana M Breast Screening - BilateralBy: On: 16-Sep-2013 Intent Sade Ocampo MD, MD, Dana M Rocephon Injection, 1 Gm On: 20-Nov-2012 Intent ([id number])By: Sade Ocampo MD Comments: Lot #[id number]-bilateral hipsDose- 2 gramsgiven by: IFRAH Anderson MD, Dana M THER/PROPH/DIAG INJ, SC/IM On: 20-Nov-2012 Intent ([id number])By: Damaris TERRY, Sade Ocampo MD, Sade Barbosa Eprescribed prescriptions On: 08-Nov-2012 Intent ([id number])By: Damaris TERRY, Sade Ocampo MD, Sade Barbosa PNEUM VAC ADLT/IMUMNOSPR, SBC/INTRM On: 15-Oct-2012 Intent ([id number])By: Jacquelyn Steven LPN Comments: Lot: [id number]: [id number]: 0.5mlRoute: IMSite: L deltoidGiven by: IFRAH Suh IMMUNIZ ADMNIN, 1 VAC, SNGL/COMBO On: 15-Oct-2012 Intent ([id number])By: Jacquelyn Steven LPN Breast Screening - BilateralBy: On: 08-Oct-2012 Intent Damaris TERRY, Sade Ocampo MD, Sade Barbosa IMMUNIZ ADMNIN, 1 VAC, SNGL/COMBO On: 08-Oct-2012 Intent ([id number])By: Damaris TERRY, Sade Ocampo MD, Sade Barbosa PNEUM VAC ADLT/IMUMNOSPR, SBC/INTRM On: 08-Oct-2012 Intent ([id number])By: Sade Ocampo MD, MD, Sade Barbosa IMMUNIZ ADMNIN, 1 VAC, SNGL/COMBO On: 08-Oct-2012 Intent ([id number])By: DAVID Nina FLU VAC, SPLIT, >3 YEARS, INTRAMUSC On: 08-Oct-2012 Intent ([id number])By: DAVID Nina MRI - Knee(s) - LeftBy: Donovan KIDD, On: 30-Dec-2011 Intent Alissa Garcia PHYSICAL THERAPY EVALUATION On: 30-Dec-2011 Intent ([id number])By: Alissa Man CNP Doppler Ultrasound OtherBy: Donovan On: 30-Dec-2011 Intent Alissa KIDD Radiology - Knee - LeftBy: Donovan On: 30-Dec-2011 Intent Alissa KIDD Breast Screening - BilateralBy: On: 04-Aug-2011 Intent Sade Ocampo MD, MD, Sade M Eprescribed prescriptions On: 10-Jan-2011 Intent ([id number])By: Sade Ocampo MD, MD, Dana M EKG ([id number])By: DAVID Nina On: 12-Oct-2010 Intent MAMMOGRAM, SCREENING, BOTH BREASTS On: 20-Sep-2010 Intent ([id number])By: Haley Chaparro DO EKG ([id number])By: Sade Ocampo MD On: 17-Sep-2009 Intent Sade Ocampo MD MAMMOGRAM, SCREENING, BOTH BREASTS On: 17-Sep-2009 Intent ([id number])By: Sade Ocampo MD, MD, Dana M MAMMOGRAM, SCREENING, BOTH BREASTS On: 23-Sep-2008 Intent ([id number])By: Lara Iglesias Nuclear Stress Test/Stress On: 19-Oct-2007 Intent SPECT/TreadmillBy: Haley Chaparro DO EKG ([id number])By: Haley Chaparro DO On: 19-Oct-2007 Intent Comments: ekg showed normal sinus rhythym, normal axis, no acute st/t wave changes nsivcd Bio Z ([id number])By: Haley Chaparro DO On: 19-Oct-2007 Intent Comments: good paremeterss IMMUNIZ ADMNIN, 1 VAC, SNGL/COMBO On: 22-Aug-2007 Intent ([id number])By: Shruthi Louis LPN PNEUM VAC ADLT/IMUMNOSPR, SBC/INTRM On: 22-Aug-2007 Intent ([id number])By: Shruthi Louis LPN Comments: lot # [id number] exp- 09/06 LDLT patient tolerated well Flu Vaccine, Split IM ([id number])By: On: 22-Aug-2007 Intent Shruthi Louis LPN Comments: lot #[id number] exp- 02/04 RDLT patient tolerated well SPECIMEN HNDLNG/TRNSPRT, OFFC > LAB On: 18-Jun-2007 Intent ([id number])By: NAYELI DIAMOND CNP Pulse Oximetry ([id number])By: Maico, On: 18-Jun-2007 Intent DVAID Radiology - Chest- PA and LatBy: On: 09-Feb-2007 Intent Lacey Sherman DO Aerosol Treatment ([id number])By: Lane On: 09-Feb-2007 Intent Lacey SALAZAR Comments: more air exchange-- softer rhonchi no wheeze Solu- Medrol Injection, 125mg On: 09-Feb-2007 Intent ([id number])By: Lacey Sherman DO Comments: lot # [id number] 08/07 LGLT Radiology - ChestBy: Lane SALAZAR, On: 07-Feb-2007 Intent Lacey Solu -Medrol Injection, 125 mg On: 07-Feb-2007 Intent ([id number])By: Mast Wanda VALADEZ Comments: Lot #: [id number] date:08/07Amount given: 125 mg/2 mlRoute: IMSite given: Right glutealGiven by: Magalys Michael LPN Inhaler Demo ([id number])By: DARA KIDD, On: 07-Feb-2007 Intent NAYELI Aerosol Treatment ([id number])By: DARA On: 07-Feb-2007 Intent NAYELI KIDD Comments: moderate improvement after treatment--still tons of wheezing diffuse inspir and exp IMMUNIZ ADMNIN, 1 VAC, SNGL/COMBO On: 13-Oct-2006 Intent ([id number])By: Sade Ocampo MD, MD, Dana M FLU VAC, SPLIT, >3 YEARS, INTRAMUSC On: 13-Oct-2006 Intent ([id number])By: Sade Ocampo MD, MD, Dana M MAMMOGRAM, SCREENING, BOTH BREASTS On: 13-Oct-2006 Intent ([id number])By: Sade Ocampo MD, MD, Dana M EKG ([id number])By: Sade Ocampo MD On: 13-Oct-2006 Intent Sade Ocampo MD Bio Z ([id number])By: Sade Ocampo MD On: 13-Oct-2006 Intent Sade [...] Indication: Pharyngitis, acute Encounters Office Visit On: 26-Sep-2018 10:47 Encounter Diagnosis: [...] The patient does have durable power of associate attorney and living will. The patient h as noticed nothing from the geriatic depression scale. Other providers contributing to the patient's care are utility bag assembler, gastrologist (Dr. Pabon ) and other: [facility]Encounter Diagnosis: Encounter for Medicare annual [...] Nutrition: balanced diet and supplemental vitamins. The wa dical issues the patient is following up [...] note: (fell at movie [place] [place] in [place] on sat. I just went face down [...] [facility] End: 13-Sep-2006 7:17 [place] Harmeet garcia guarantor
--- OUTSIDE RECORDS SUMMARY | 2019-01-17 14:48 | XMS RPT_ITS | Continuity of Care Document ---
:1945 Author Organization [facility] Address [address] [facility] [address] [place] [address] Phone Care Team Providers Name Role Phone [...] annual wellness exam (Z00.00, V70.0) Comments: [facility]18 [facility]. colonoscopy 6-17 3 [...] Quantity: 30 {Capsule} Refills: 0 Ordered:19-Nov-2013 DAVID Nian Start : 20-Nov-2012 End : 19-Nov-2013 Inactive [...] : 06-Nov-2008 End : 30-Mar-2009 Inactive NYSTATIN, [id number]/GM (External Powder) uad Powder bid to affected area (s) prn for 0 days Quantity: 1 {Bottle} Refills: 2 Ordered:17-Oct-2014 DAVID Nina Start : 01-Jul-2014 End : 17-Oct-2014 Inactive Olmesartan Medoxomil-HCTZ 40-25 MG Oral Tablet 1 (one) Tablet qd for 0 days Quantity: 60 {Tablet} Refills: 4 Ordered:04-Jun-2018 Damaris TERRY, Sade Olson MD, Saed Barbosa Start : 04-Jun-2018 End : 04-Jun-2018 [...] 19-Mar-2009 Well woman exam (Z01.419, V72.31) Comments: [facility] BSO bd 2012 good. mamm [...] 19-Sep-2018 Thyroid Result: Comments: See Note; NOTES: [facility] Imaging Services [address] [place] [address] Thyroid MR#: [id number] Acct: [id number] Name: SACHIN SCHUSTER Rep #: [id number] : [birth year] F 72 From: Hugo Ventura MD PCP: Sade Ocampo MD Status: REG CLI Study: Thyroid Date of Exam: 09/19/18 Exam# [id number] Ordering Dr: Sade Ocampo MD STUDY: THYROID [...] MD at 9:15 EST , Service support [phone], CC: Sade Ocampo MD Biophysics Teacher: Signed 24-May-2018 Chest PA and Lateral Result: Comments: See Note; NOTES: [facility] Imaging Services [address] [place] [address] Chest PA and Lateral MR#: [id number] Acct: [id number] Name: SACHIN SCHUSTER Rep #: [id number] : 1945 F 72 From: Jose Elias Campbell MD PCP: Sade Ocampo MD Status: REG CLI Study: Chest PA and Lateral Date of Exam: 05/24/18 Exam# [id number] Ordering Dr: Teodoro Sanchez MD STUDY: X-RAY [...] CC: Sade Ocampo MD; Teodoro Sanchez MD Biophysics Teacher: Signed 30-Apr-2018 PET/CT Tumor Base -Thigh Init Result: Comments: See Note; NOTES: [facility] Imaging Services [address] [place] [address] PET/CT Tumor Base -Thigh Init MR#: [id number] Acct: [id number] Name: SACHIN SCHUSTER Rep # : [id number] : 1945 F 72 From: Walter Monzon DO PCP: Sade Ocampo MD Status: REG CLI Study: PET/CT Tumor Base -Thigh Init Date of Exam: 04/30/18 Exam# [id number] Ordering Dr: Sade Ocampo MD EXAMINATION: FDG [...] Service support , CC: Sade Ocampo MD Biophysics Teacher: Signed 24-Apr-2018 Dexa Bone Density Study Result: Comments: See Note; NOTES: [facility] Imaging Services [address] [place] [address] Dexa Bone Density Study MR#: [id number] Acct: [id number] Name: SACHIN SCHUSTER Rep #: [id number] : 1945 F 72 From: Mikey Pierre MD PCP: Sade Ocampo MD Status: REG CLI Study: Dexa Bone Density Study Date of Exam: 04/24/18 Exam# [id number] Ordering Dr: Sade Ocampo MD STUDY: DUAL [...] Mikey Pierre MD at 14:05 EDT Tel [phone], Service support , CC: Sade Ocampo MD Biophysics Teacher: Signed 19-Apr-2018 Downtime Report Result: Comments: See Note; NOTES: [facility] Medical Records Department [address] [place] [address] Downtime Report MR#: [id number] Acct: [id number] Name: SACHIN SCHUSTER Rep #: [id number] : 1945 72 From: Donte De Jesus PCP: Sade Ocampo MD Status: REG CLI This patient was seen during an EMR downtime April 02, 2018 - April 09, 2018. This patient may have a combination of p aper and electronic documentation or all paper documentation. All documentation is viewable within the e-chart portion of [employer] for each patient visit. 17-Apr-[address] w/CCTA Result: Comments: See Note; NOTES: [facility] Imaging Services [address] [place] [address] w/CCTA MR#: [id number] Acct: [id number] Name: SACHIN SCHUSTER Rep #: [id number] : 1945 F 72 From: Mikey Pierre MD PCP: Sade Ocampo MD Status: REG CLI Study: Limited Chest CT w/CCTA Date of Exam: 04/17/18 Exam# [id number] Ordering Dr: Sade Ocampo MD STUDY: CT [...] Mikey Pierre MD at 15:38 EDT Tel [phone], Service support , CC: Sade Ocampo MD Biophysics Teacher: Signed 09-Apr-2018 SCREENING MAMM (CAD), BILAT Result: Comments: See Note; NOTES: [facility] Imaging Services [address] [place] [address], [place] [address] SCREENING MAMM (CAD), BILAT MR#: [id number] Acct: [id number] Name: SACHIN SCHUSTER Rep #: [id number] : 1945 F 72 From: Valentín Gross MD PCP: Sade Ocampo MD Status: REG CLI Study: SCREENING MAMM (CAD), BILAT Date of Exam: 04/09/18 Exam# [id number] Ordering Dr: Sade Ocampo MD MAMM OGRAPHY [...] delay biopsy of a clinically suspicious abnormality. [id number] Electronically Signed: Valentín Gross MD at 14:15 EDT Tel , Service support [phone], CC: Sade Ocampo MD Biophysics Teacher: Signed 30-Jan-2018 Hand Min 3 Views Result: Comments: See Note; NOTES: [facility] Imaging Services [address] [place] [address] Hand Min 3 Views MR#: [id number] Acct: [id number] Name: SACHIN SCHUSTER Rep #: [id number] D OB: 1945 F 72 From: Fernando Oliva DO PCP: Sade Ocampo MD Status: REG CLI Study: Hand Min 3 Views Date of Exam: 01/30/18 Exam# [id number] Ordering Dr: Sade Ocampo MD STUDY: X-RAY [...] Service support , CC: Sade Ocampo MD Biophysics Teacher: Signed 18-Dec-2017 Urgent Care Visit Report Result: Comments: See Note; NOTES: [address] [place], [place] [address] OFFICE VISIT Date of Service: 12/18/17 MR#: [id number] Acct: [id number] Name: SACHIN SCHUSTER p #: [id number] : 1945 Provider: Kyle JIMENEZ Age/Sex: 72/F Location[facility] Status: Signed Intake Vital Signs12/18/17 Height 5 ft 2 in 12/18/17 Weight: 170 lb 8 oz Intake Visit Reasons: SO RE THROAT [employer] Required: No Accompanied by: None Is patient [...] the above. This note was generated with [employer] software. It may contain incorrect words, spelling, [...] with Pelvis Result: Comments: See Note; NOTES: [facility] Imaging Services [address] [place] [address] Verdana 4d Hip 2-3 Views with Pelvis MR#: [id number] Acct: [id number] Name: SACHIN SCHUSTER Rep #: [id number] : 1945 F 71 From: Mikey Pierre MD PCP: Sade Ocampo MD Status: [facility] Study: Hip 2-3 Views with Pelvis Date of Exam: 05/12/17 Exam# [id number] Ordering Dr: Kodi Ocampo MD STUDY: X-RAY [...] Mikey Pierre MD at 12:44 EDT Tel [phone], Service support , CC: Sade Ocampo MD Biophysics Teacher: Signed 12-May-2017 L/S Spine Min 4 Views Result: Comments: See Note; NOTES: [facility] Imaging Services [address] [place] [address] Verdana 4d L/S Spine Min 4 Views MR#: [id number] Acct: [id number] Name: SACHIN SCHUSTER p #: [id number] : 1945 F 71 From: Mikey Pierre MD PCP: Sade Ocampo MD Status: REG CLI Study: L/S Spine Min 4 Views Date of Exam: 05/12/17 Exam# [id number] Ordering Dr: Sade Ocampo MD STUDY: X-RAY [...] Pierre MD a t 12:43 EDT Tel [phone], Service support , CC: Sade Ocampo MD Biophysics Teacher: Signed 29-Mar-2017 Breast Limited Unilateral Result: Comments: See Note; NOTES: [facility] Imaging Services [address] [place] [address] Verdana 4d Breast Limited Unilateral MR#: [id number] Acct: [id number] Name: SACHIN SCHUSTER Rep #: [id number] : 1945 F 71 From: Mikey Pierre MD PCP: Sade Ocampo MD Status: REG CLI Study: Breast Limited Unilateral Date of Exam: 03/29/17 Exam# [id number] Ordering Dr: Kodi Ocampo MD STUDY: ULTRASOUND [...] Mikey Pierre MD at 15:51 EDT Tel [phone], Service support , CC: Sade Ocampo MD Biophysics Teacher: Signed 22-Mar-2017 SCREENING MAMM (CAD), BILAT Result: Comments: See Note; NOTES: [facility] Imaging Services [address] [place] [address] Verdana 4d SCREENING MAMM (CAD), BILAT MR#: [id number] Acct: [id number] Name: HELLEN SCHUSTER Rep #: [id number] : 1945 F 71 From: Mikey Pierre MD PCP: Sade Ocampo MD Status: REG CLI Study: SCREENING MAMM (CAD), BILAT Date of Exam: 03/22/17 Exam# [id number] Ordering Dr: Sade Ocampo MD MAMMOGRAPHY - [...] delay biopsy of a clinically suspicious abnormality. [id number] Electronically Signed: Mikey Pierre MD at 8:05 EDT Tel [phone], Service support , CC: Sade Ocampo MD Biophysics Teacher: Signed 21-Jun-2016 PT D/C Summary (1) Result: Comments: See Note; NOTES: [facility] Physical Therapy Health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 Thank you for the referral of this patient. Sincerely, An carmel Cunningham <Electronically signed by Dora DODSON> 06/21/16 1910 CC: RADHA COTTRELL; Sade Ocampo MD; OUT OF TOWN DOCTOR Signed 25-May-2016 Re-Evaluation - PT (1) Result: Comments: See Note; NOTES: [facility] Physical Therapy [facility] [address] [facility] [address] [place] [address] Fax [facility]EEVALUATION / [facility]ERAPY MR#: [id number] Acct: [id number] Name: SACHIN SCHUSTER Rep #: [id number] : 1945 70 From: Dora DODSON Referring DrHien: OUT OF TOWN DOCTOR Status: REG RCR Insurance: MEDICARE PART A B AETNA Out of [facility] Doctor, RADHA COTTRELL It has been my [...] do not hesitate to contact me at [phone] by phone or if you have questions or concerns regarding this new plan of care! Sincerely, Dora Cunningham <Electronically signed by Dora Cunningham MPT> 05/25/16 191 CC: RADHA COTTRELL; Sade Ocampo MD; OUT OF [facility] DOCTOR Signed For Medicare only, by signing this I certify the pl an of care. Physicians Signature Date 29-Apr-2016 Inital Evaluation (1) - PT Result: Comments: See Note; NOTES: [facility] Physical Therapy [facility] [address] [place], [place] [address] Fax REHABILITATION SE RVICES INITIAL EVALUATION MR#: [id number] Acct: [id number] Name: SACHIN SCHUSTER Rep #: [id number] : 1945 70 From: Dora Cunningham MPT [...] [facility]. Pt had trouble [...] to be FAXED BACK to us at [phone] for Medicare purposes. Please let me kn [...] Only (Routine) Result: Comments: See Note; NOTES: [facility] Imaging Services [address] [facility] [place] [address] Verdana 4d Lower Ext Joint Only (Routine) MR#: [id number] Acct: [id number] Na me: SACHIN SCHUSTER Rep #: [id number] : 1945 F 70 From: Hermann Inman MD PCP: Sade Ocampo MD Status: REG CLI Study: Lower Ext Joint Only (Routine) Date of Exam: 03/09/16 Exam# [id number] O jhoan Dr: Marck Armendariz STUDY: MRI [...] FACR at 8:04 EDT , Service support [phone], CC: MARCK ARMENDARIZ; Sade Ocampo MD Biophysics Teacher: Signed 28-Oct-2015 Bilat Scrn Digital AND CAD Result: Comments: See Note; NOTES: [facility] Imaging Services [address] [place] [address] Verdana 4d Bilat Scrn Digital AND CAD MR#: [id number] Acct: [id number] Name: SACHIN SCHUSTER Rep #: [id number] : 1945 F 69 From: Jose Elias Campbell MD PCP: Sade Ocampo MD Status: REG CLI Study: Bilat Scrn Digital AND CAD Date of Exam: 10/28/15 Exam# [id number] Ordering Dr: Sade Ocampo MD MAMMOGRAPHY - [...] delay biopsy of a clinically suspicious abnormality. LS1990 Electronically Betsy d: Elijah Campbell MD at 11:23 EST Tel , Service support [phone], CC: Sade Ocampo MD Biophysics Teacher: Signed 28-Oct-2015 Dexa Bone Density Study (HP) Result: Comments: See Note; NOTES: [facility] Imaging Services [address] [place] [address] Verdana 4d Dexa Bone Density Study (HP) MR#: [id number] Acct: [id number] Name : SACHIN SCHUSTER Rep #: [id number] : 1945 F 69 From: Mikey Pierre MD PCP: Sade Ocampo MD Status: [facility] Study: Dexa Bone Density Study (HP) Date of Exam: 10/28/15 Exam# [id number] Ella lori Dr: Sade Ocampo MD STUDY: [...] Mikey Pierre MD at 8:33 EST Tel [phone], Service support [phone], CC: Sade Ocampo MD Biophysics Teacher: Signed 27-Oct-2014 Bilat Scrn Digital AND CAD Result: Comments: See Note; NOTES: [facility] Imaging Services [address] [place] [address] Breast Imaging Report MR#: [id number] Acct: [id number] Name: Leigh Ann SCHUSTER Rep #: [id number] : 1945 F 68 From: Jose Elias Campbell MD PCP: Sade Ocampo MD Status: REG CLI Study: Bilat Scrn Digital AND CAD Date of Exam: 10/27/14 Exam# [id number] Ordering Dr: Sade Ocampo MD MAMM OGRAPHY [...] Elijah Campbell MD at 14:42 EST Tel [phone], Service supp ort [phone], CC: Sade Ocampo MD Biophysics Teacher: Signed 17-Oct-2014 EKG (69246) Comments: see scanned document of test done to see results reviewed today with patient Result: [MEASUREMENTS ANALYSIS] Date of Test: 10/17/2014 10:58:06; Heart Rate: 77; NH Interval: 142; QRS: 96; QT Interval: 382; Corrected QT Interval (QTc): 411; P [place]: 43; QRS [place]: 10; T [place]: -1; Blood Pressure: 120/80 [ECG DIAGNOSTIC STATEMENTS] Date of Test: 10/17/2014 10:58:06; Summary: Sinus Rhythm WITHIN NORMAL LIMITS 21-May-2014 Breast Unilateral Result: Comments: See Note; NOTES: [facility] Imaging Services [address] [place] [address] Ultrasound Report MR#: [id number] Acct: [id number] Name: Leigh Ann SCHUSTER Rep #: [id number] : 1945 F 68 From: Valentín Gross MD PCP: Sade Ocampo MD Status: REG CLI Study: Breast Unilateral Date of Exam: 05/21/14 Exam# [id number] Ordering Dr: Teodoro Humphries MD STUDY: ULTRAS [...] at 17:35 EDT Tel , Service support [phone], CC: Sade Ocampo MD; Teodoro Humphries MD Biophysics Teacher: Signed 25-Feb-2014 Upper Ext Joint Only(Routine) Result: Comments: See Note; NOTES: [facility] Imaging Services [address] [place] [address] MRI Report MR#: [id number] Acct: [id number] Name: Leigh Ann SCHUSTER Rep #: [id number] : 1945 F 68 From: Hossein Matos MD PCP: Sade Ocampo MD Status: REG CLI Study: Upper Ext Joint Only(Routine) Date of Exam: 02/25/14 Exam# [id number] Ordering Dr: Christian Beard DO STUDY: MRI [...] MD at 11:58 EDT , Service support [phone], CC: Sade Ocampo MD; Christian Beard Biophysics Teacher: Signed 14-Feb-2014 Shoulder min 2 Views Result: Comments: See Note; NOTES: [facility] Imaging Services [address] [place] [address] Radiology Report MR#: [id number] Acct: [id number] Name: Leigh Ann SCHUSTER Rep #: [id number] : 1945 F 68 From: Mikey Pierre MD PCP: Sade Ocampo MD Status: REG CLI Study: Shoulder min 2 Views Date of Exam: 02/14/14 Exam# [id number] Ordering Dr: Christian Beard DO STUDY: X [...] Mikey Pierre MD at 14:06 EDT Tel [phone], Service support [phone], 0055 RAD/Shoulder min 2 Views IMPRESSION: Degenerative changes of the acromioclavicular joint. Electronically Signed: Mikey Pierre MD at 14:06 EDT Tel [phone], Service support [phone], CC : Sade Ocampo MD; Christian Beard Biophysics Teacher: Signed 16-Oct-2013 Breast Unilateral Result: Comments: See Note; NOTES: [facility] Imaging Services [address] [place] [address] Ultrasound Report MR#: [id number] Acct: [id number] Name: Leigh Ann SCHUSTER Rep #: [id number] : 1945 F 67 From: Mikey Pierre MD PCP: Sade Ocampo MD Status: REG CLI Study: Breast Unilateral Date of Exam: 10/16/13 Exam# [id number] Ordering Dr: Sade Ocampo MD STUDY: ULT [...] M.D. at 16:45 EST , Service support [phone], CC: Sade Ocampo MD Biophysics Teacher: Signed 11-Oct-2013 Bilat Scrn Digital & CAD Result: Comments: See Note; NOTES: [facility] Imaging Services [address] [place] [address] Breast Imaging Report MR#: [id number] Acct: [id number] Name: Leigh Ann SCHUSTER Rep #: [id number] : 1945 F 67 From: Mikey Pierre MD PCP: Sade Ocampo MD Status: REG CLI Exam# [id number] Ordering Dr: Sade Ocampo MD MAMMOGRAPHY - [...] M.D. at 15:33 EST , Service support [phone], CC: Sade Ocampo MD Biophysics Teacher: Signed Immunization Name Dates Details Influenza (3 years and up) on: 13-Oct-2006 Influenza (3 years and up) on: 22-Aug-2007 Comments: lot #[id number] exp- 02/04 RDLT patient tolerated well Pneumococcal [...] Living Situation: Lives with spouse. 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 [id number] Thyroid Peroxidase (TPO) Ab 21 {IU/mL} (Normal) Range: 0-34 75-Tdp-428744:55 TSH (12172) Comments: PATIENT NOT FASTINGPERFORMED BY: [facility]Holy [facility] CenterAaaqqq6083 [facility] [id number] TSH 0.967 {uIU/mL} (Normal) Range: 0.450-4.500 35-Ube-373149:55 T4, FREE (THYROXINE) (65011) Comments: PATIENT NOT FASTINGPERFORMED BY: [facility] Utjpry5090 [facility] [id number] T4,Free(Direct) 1.50 ng/dL (Normal) Range: 0.82-1.77 35-Dxg-560314:55 T3, FREE (TRIDOTHYRONINE) (44004) Comments: PATIENT NOT FASTINGPERFORMED BY: [facility]6[address] [facility] [id number] Triiodothyronine (T3), Free 3.3 pg/mL (Normal) Range: 2.0-4.4 :08 LIBBY CULTURE-OTHER (56317) Comments: PATIENT NOT FASTINGPERFORMED BY: [facility] [facility] [id number] Information: SRC: Result 1 RRF (Normal) Comments: Routine respiratory fredo Upper Respiratory Culture Final report (Normal) 63-Tuy-255203:52 Rapid Strep Test, Office (12431) Rapid Strep Test, Office Negative (Normal) 58-Ybq-839866:51 FLU A+B DIRECT AG, (RAPID) (04893) FLU A+B DIRECT AG, (RAPID) negative (Normal) 8-Kbh-272669:09 LDL, Direct Comments: Comments: [facility] (refer to report for specific site)refer to report for address and phone number; fu 18 db COMMENT Test not performed (Normal) LDL,DIR 063258 147 mg/dL (Abnormal) Range: 0-99 Comments: Performed at: [facility] [id number] Director: Steve Carey PhD, Phone: [phone] :09 Triglycerides Comments: Comments: [facility] [address] [place], [address] TRIG 117 mg/dL (Normal) Comments: [...] ECLIA methodology Nonsmokers <3.9 Smokers <5.6Performed at: [address] [id number] Director: Steve Carey PhD, Phone: [phone] 49-Mhv-390414:27 CRP Comments: [facility] [address] [place], [address] C-REACTIVE PROT 5.31 mg/L (Abnormal) Range: 0.0-3.0 Comments: C-Reactive Protein (CRP) provides useful information for thediagnosis, therapy and monitoring of inflammatory processesand associated diseases. For the evaluation of Relative Riskfor Cardiovascular Dise ase, a High Sensitivity CRP (HSCRP)should be ordered. 12-Mwl-355665:27 Erythrocyte Sed Rate Comments: [facility] [address] [place], [place], [address] SED RATE 3 mm/h (Normal) Range: 0-30 86-Ivv-037401:27 URINE HISTOPLASMA ANTIGEN Comments: [facility] (refer to report for specific site)refer to report for address and phone number UR Comments: TEST RESULT LIMITSHistoplasma Gal'krys Ag Ur <0.5 <0.5 ng/mLDisclaimer: This test was developed and its performance characteristics determined by [facility]agar RIZO (Ana) Tyron. It has not been cleared or approved by the Food and Drug Administration. [facility] AT [facility]. ORIGINAL REPORT ON FILE IN LAB AG CONTAINS ADDITIONAL TEST SITE INFORMATION. 7-Fqp-071657:26 Metabolic Panel, Basic (59462) Comments: PATIENT NOT FASTINGPERFORMED BY: [facility] Lghooz3289 [facility] [id number] Calcium 10.0 mg/dL (Normal) Range: 8.7-10.3 Carbon [...] 8-27 Glucose 113 mg/dL (Abnormal) Range: 65-99 50-Iya-194122:23 Metabolic Panel, Comprehensive Comments: PATIENT NOT FASTINGPERFORMED BY: [facility]CoHoly [facility] CenterCrtbbk1203 [facility] [id number] (72982) ALT (SGPT) 23 [iU]/L (Normal) Range: 0-32 [...] 8-27 Glucose 94 mg/dL (Normal) Range: 65-99 91-Obs-293534:23 CBC WITH MANUAL DIFF Comments: PATIENT NOT FASTINGPERFORMED BY: [facility]CoHoly [facility] CenterAkwfwo2294 [facility] [id number] Information: NURSE DRAW; fu DB 6-8 (08287) Immature Grans (Abs) 0.0 {x10E3/uL} (Normal) Range: [...] 3.77-5.28 WBC 3.2 {x10E3/uL} (Abnormal) Range: 3.4-10.8 09-Bpa-179228:23 MICROALBUMIN: CREATININE RATIO Comments: PATIENT NOT FASTINGPERFORMED BY: [facility] Xgxsof[address] [facility] [id number] (74283) AND (43893) Alb/Creat Ratio 5.3 {mg/g_creat} (Normal) Range: 0.0-30.0 Albumin, Urine 3.7 ug/mL (Normal) Creatinine, Urine 70.0 mg/dL (Normal) 84-Ong-585332:23 URINALYSIS (06734) Comments: PATIENT NOT FASTINGPERFORMED BY: [facility] CenterUrfwkk2380 [facility] [id number] Microscopic Examination MICNIP (Normal) Comments: Microscopic not indicated and not performed. Nitrite, Urine Negative (Normal) Urobilinogen,Semi-Qn 0.2 mg/dL (Normal) Range: 0.2-1.0 Bilirubin Negative (Normal) Occult Blood Negative (Normal) Ketones Negative (Normal) Glucose Negative (Normal) Protein Negative (Normal) WBC Esterase Negative (Normal) Appearance Clear (Normal) Urine-Color Yellow (Normal) pH 6.5 (Normal) Range: 5.0-7.5 Specific [place] 1.018 (Normal) Range: 1.005-1.030 76-Tof-504231:30 Culture, R/O Strep A Comments: [facility] [address] [place], [place], [address] CUSTREPA See Note (Normal) Comments: AVERY CultureNo Group A Beta Streptococcus isolated. * This cultures intended use is to screen for Beta Streptococcus A only. All other pathogens and potential pathogens will not be screened for or rep orted. If a complete workup of all potential pathogens is indicated an order for a routine throat culture is required. 0-Rfh-854862:10 ANTINUCLEAR ANTIBODIES DIRECT Comments: [facility] (refer to report for specific site)refer to report for address and phone number MILTON-DIRECT Negative (Normal) Comments: Performed at: [address] [id number] Director: Steve Carey PhD, Phone: [phone] 2-Bjs-292951:10 Ferritin Comments: [facility] [address] [place], [place], [address] FERRITIN 251 ng/mL (Normal) Range: 8-252 80-Osz-664979:40 Methymalonic Acid, Serum Comments: today; PATIENT NOT FASTINGPERFORMED BY: Foodfly[address] [id number] BY: [address] [id number] ([address]) Methylmalonic Acid, Serum 198 nmol/L (Normal) Range: 0-378 95-Kvx-114322:40 Vitamin B-12 Comments: today; PATIENT NOT FASTINGPERFORMED BY: [facility]com[address] [id number] BY: [facility] [id number] (cyanocobalamin) (44099) Vitamin B12 353 pg/mL (Normal) Range: 211-946 95-Spo-733220:23 HEPATITIS C ANTIBODY Comments: PATIENT NOT FASTINGPERFORMED BY: [facility] Latbkd6292 Arsenio PrestonAt[facility] Health Providence [id number] Information: NURSE DRAW (64900) Hep C Virus Ab <0.1 {s/co_ratio} (Normal) Range: 0.0-0.9 Comments: Negative: < 0.8 Indeterminate: 0.8 - 0.9 Positive: > 0.9 . The CDC recommends that a positive HCV antibody result be followed up with a HCV Nucleic Acid Amplification test (446538). :57 Alanine Aminotransferas (SGPT) Comments: DR.CHARLICK VERDIN.[facility] [address] [place], [address] ALT 32 U/L (Normal) Range: 12-78 :57 ALB/GLOB Ratio Comments: DR.CHARLICK VERDIN.[facility] [address] [place], [address] A/G 1.2 {RATIO} (Normal) Range: 0.9-2.4 :57 Albumin, Serum Comments: DR.CHARLICK VERDIN.[facility] [address] [place], [address] ALB 3.7 g/dL (Normal) Range: 3.4-5.0 :57 Alkaline Phosphatase Comments: DR.CHARLICK VERDIN.[facility] [address] [place], [address] ALK P 93 U/L (Normal) Range: 50-136 :57 AST(SGOT) Comments: DR.CHARLICK VERDIN.[facility] [address] [place], [place], [id number] AST 22 U/L (Normal) Range: 15-37 :57 Basic Metabolic Profile (BMP) Comments: DR.CHARLICK VERDIN.[facility] [address] [place], [place], [id number] GAP 8 (Normal) Range: 5-15 CO2 26.0 [...] Range: 70-110 :57 Bilirubin, Total Comments: DR.CHARLICK VERDIN.[facility] [address] [place], [place], [id number] T BILI 0.50 mg/dL (Normal) Range: 0.20-1.00 :57 Globulin Comments: DR.CHARLICK VERDIN.[facility] [address] [place], [place], [id number] GLOB 3.1 g/dL (Normal) Range: 2.3-3.5 :57 Lipid Profile Comments: DR.CHARLICK VERDIN.[facility] [address] [place], [address](236) VLDL 17 mg/dL (Normal) Range: 5-40 LDL [...] High Risk :57 Protein, Total Comments: DR.CHARLICK VERDIN.[facility] Vvudngtzta3453 [facility] [place], [address] T PROT 6.8 g/dL (Normal) Range: 6.4-8.2 :57 Thyroid Stim Hormone (TSH) Comments: DR.CHARLICK VERDIN.[facility] Rsrnflakhb5962 [facility] [place], [address] TSH 1.36 {uIU/mL} (Normal) Range: 0.358-3.74 27-Uok-268258:40 Rapid Flu (77560 x 2) Comments: neg Influenza A Ag negative (Normal) 58-Ehp-23027:47 CBC W/Diff, Automated Comments: [facility] [address] [place] [address], [address] ; [address] Absolute Lymph 1.25 [...] 4.2-5.4 WBC 3.5 K/mm3 (Abnormal) Range: 4.4-11.0 42-Xfa-95819:47 Comprehensive Metabolic Profil Comments: [facility] [address] [place], [address] GAP 9 (Normal) Range: 5-15 CO2 25.0 [...] (Normal) Range: 70-110 :47 Lipid Profile Comments: [facility] [address] [place], [place], [id number] VLDL 28 mg/dL (Normal) Range: 5-40 LDL [...] Risk :47 Thyroid Stim Hormone (TSH) Comments: [facility] [address] [place], [address] TSH 1.13 {uIU/mL} (Normal) Range: 0.358-3.74 :47 Vitamin D,25 Hydroxy Comments: [facility] [address] [place], [place], [id number] Vitamin D 25-OH 41.2 ng/mL (Normal) Comments: Vitamin D 25(OH) Status Range Deficiency <20 ng/mL (50nmol/L) Insuffciency 20 - 30 ng/mL (50 - 75 nmol/L) Sufficiency 30 - 100 ng/mL (75 - 250 nmol/L) Toxicity >100 ng/mL (>250 nmol/L) :53 URINALYSIS (99373) Comments: PATIENT NOT FASTINGPERFORMED BY: [facility]6[address] [facility] [id number] Information: [id number] Microscopic Examination MICNIP (Normal) Comments: Microscopic not indicated and not performed. Nitrite, Urine Negative (Normal) Urobilinogen,Semi-Qn 0.2 mg/dL (Normal) Range: 0.0-1.9 Bilirubin Negative (Normal) Occult Blood Negative (Normal) Ketones Negative (Normal) Glucose Negative (Normal) Protein Negative (Normal) WBC Esterase Negative (Normal) Appearance Clear (Normal) Urine-Color Yellow (Normal) pH 7.5 (Normal) Range: 5.0-7.5 Specific [place] 1.015 (Normal) Range: 1.005-1.030 0-Tvl-180824:53 URINE LIBBY CULTURE-IDENTIFICATN Comments: PATIENT NOT FASTINGPERFORMED BY: [facility]CoHoly [facility] CenterUjmfea4286 [facility] [id number] ([id number]) Result 1 NG36 (Normal) Comments: No growth in 36 - 48 hours. Urine Culture,Comprehensive Final report (Normal) 07-Ybm-46362:22 CBC W/Diff, Automated Comments: Test performed at:[facility] [address] [place], [place] [address] Absolute Lymph 1.45 {X10_3/ul} (Normal) Range: 0.83-4.51 [...] :22 Comprehensive Metabolic Profil Comments: Test performed at:[facility] [address] [place] [address] GAP 6 (Normal) Range: 5-15 CO2 28.0 [...] 70-110 :22 Lipid Profile Comments: Test performed at:[facility] [address] [place] [address] VLDL 27 mg/dL (Normal) Range: [...] :22 Microalb:Creat Ratio,Random UR Comments: Test performed at:[facility] [address] [place] [address] MALB:CREAT 7.1 {mg/g_CRE} (Normal) MICROALBUMIN,UR 18.2 mg/L (Normal) UR CREAT 256.0 mg/dL (Normal) :22 Urinalysis, Complete Comments: How was Urine Obtained? CLEAN CATCHTest performed at:[facility] [address] [place] [address] CA OX CRYSTAL 1+ {/hpf} [...] CLARITY Sl. Cloudy (Normal) COLOR Yellow (Normal) 86-Pgm-04333:22 Vitamin D,25 Hydroxy Comments: Test performed at:[facility] [address] [place] [address] Vitamin D 25-OH 44.6 ng/mL (Normal) Comments: Vitamin D 25(OH) Status Range Deficiency <20 ng/mL (50nmol/L) Insuffciency 20 - 30 ng/mL (50 - 75 nmol/L) Sufficiency 30 - 100 ng/mL (75 - 250 nmol/L) Toxicity >100 ng/mL (>250 nmol/L) 81-Mnm-984670:55 CBCD ANC 2.4 {X10_3/uL} (Normal) Range: 2.0-7.7 [...] 4.2-5.4 WBC 4.4 K/mm3 (Normal) Range: 4.4-11.0 97-Xxl-072859:55 CMP GAP 8 (Normal) Range: 5-15 CL [...] 7-18 GLU 94 mg/dL (Normal) Range: 70-110 58-Xtd-875042:55 UA Comments: How was Urine Obtained? CLEAN CATCH ANA 100 /ul (Abnormal) UOB 10 /ul (Abnormal) PRATEEK Negative (Normal) UROBU Normal mg/dL (Normal) VASQUEZ 6.0 (Normal) Range: 5.0 - 8.0 uPROTU Negative mg/dL (Normal) SGU 1.020 (Normal) Range: 1.002-1.030 KETU Negative mg/dL (Normal) BILIU Negative mg/dL (Normal) GLUR Normal mg/dL (Normal) UCLAR Clear (Normal) UCOL Yellow (Normal) 27-Maq-964710:23 Microscopic Examination Comments: PATIENT WAS FASTINGPERFORMED BY: [facility]CoHoly Name [facility] CenterLuxfny5274 [facility] [id number] Bacteria None seen (Normal) Mucus Threads Present (Normal) Epithelial Cells (non renal) 0-10 {/hpf} (Normal) Range: 0 - 10 RBC None seen {/hpf} (Normal) Range: 0 - 3 WBC 0-5 {/hpf} (Normal) Range: 0 - 5 86-Tdk-483173:51 BILAT SCRN DIGITAL & CAD Radiology Report [...] Pierre M.D.October 09, 2012 at 12:29:05 PM [id number] Signed GP/GP If you are the referring physician and would like to consult with theradiologist who provided this interpretation, please contact Santos Chatterjee at [phone]. If this radiologist is unavailable, youwill be directed to another radiologi st to assist. If you are a patient with a question regarding this report, pleasecontactyour referring physician directly. Professional Interpretation Provided By: [employer], Phone ,Fax These documents contain legally protected [...] 1235 Si gn by: Mikey Pierre MD 69-Hxj-991085:23 URINALYSIS, W/ MICRO (84607) Comments: PATIENT WAS FASTINGPERFORMED BY: [facility] [id number] Microscopic Examination See below: (Normal) Microscopic Examination MICRON (Normal) Comments: Microscopic follows if indicated. Nitrite, Urine Negative (Normal) Urobilinogen,Semi-Qn 1.0 mg/dL (Normal) Range: 0.0-1.9 Bilirubin Negative (Normal) Occult Blood Negative (Normal) Ketones Negative (Normal) Glucose Negative (Normal) Protein Negative (Normal) WBC Esterase Negative (Normal) Appearance Clear (Normal) Urine-Color Yellow (Normal) pH 7.5 (Normal) Range: 5.0-7.5 Specific [place] 1.021 (Normal) Range: 1.005-1.030 66-Nfh-738615:23 MICROALBUMIN: CREATININE RATIO Comments: PATIENT WAS FASTINGPERFORMED BY: [employer] [facility] [id number] ([id number]) AND (29126) Microalb/Creat Ratio 3.0 {mg/g_creat} (Normal) Range: 0.0-30.0 Microalbumin, Urine 2.5 ug/mL (Normal) Range: 0.0-17.0 Creatinine, Urine 82.1 mg/dL (Normal) Range: 15.0-278.0 26-Jtq-785352:23 METABOLIC PANEL, COMPREHENSIVE Comments: PATIENT WAS FASTINGPERFORMED BY: [facility] [id number] (75871) ALT (SGPT) 29 [iU]/L (Normal) Range: 0-32 [...] Glucose, Serum 93 mg/dL (Normal) Range: 65-99 73-Ixq-429185:23 LIPID PANEL (04698) Comments: PATIENT WAS FASTINGPERFORMED BY: [facility] Ovhaml5154 [facility] [id number] LDL/HDL Ratio 3.0 {ratio_units} (Normal) Range: 0.0-3.2 LDL Cholesterol Calc 145 mg/dL (Abnormal) Range: 0-99 HDL Cholesterol 49 mg/dL (Normal) Comments: According to ATP-III Guidelines, HDL-C >59 mg/dL is considered anegative risk factor for CHD. VLDL Cholesterol Brayden 22 mg/dL (Normal) Range: 5-40 Triglycerides 110 mg/dL (Normal) Range: 0-149 Cholesterol, Total 216 mg/dL (Abnormal) Range: 100-199 74-Pbv-517179:23 CBC WITH MANUAL DIFF Comments: PATIENT WAS FASTINGPERFORMED BY: [facility]6[address] [facility] [id number] Information: [id number] (13184) Immature Grans (Abs) 0.0 {x10E3/uL} (Normal) Range: [...] 3.77-5.28 WBC 3.6 {x10E3/uL} (Abnormal) Range: 4.0-10.5 9-Whi-947378:23 KNEE,4 OR MORE VIEWS Radiology Report See [...] radiologist regarding this report, please call our [id number] line @ Dictated on 12/30/11 1234 by WALTER KAY MDTranscribed on 12/30/11 1655 by ITS IMPORTSign by WALTER KAY MD on 12/30/111655 Sign by: WALTER KAY MD 33-Lce-710943:59 Microscopic Examination Comments: PATIENT WAS FASTINGPERFORMED BY: [employer]6370 [facility] HospitalQu [employer] [id number] Bacteria None seen (Normal) Mucus Threads Present (Normal) Epithelial Cells (non renal) 0-10 {/hpf} (Normal) Range: 0 - 10 RBC 0-3 {/hpf} (Normal) Range: 0 - 3 WBC 0-5 {/hpf} (Normal) Range: 0 - 5 39-Vzr-814102:59 URINALYSIS, W/ MICRO (78971) Comments: PATIENT WAS FASTINGPERFORMED BY: [employer]6370 [facility] [id number] Microscopic Examination See below: (Normal) Microscopic Examination MICRON (Normal) Comments: Microscopic follows if indicated. Nitrite, Urine Negative (Normal) Urobilinogen,Semi-Qn 0.2 mg/dL (Normal) Range: 0.0-1.9 Bilirubin Negative (Normal) Occult Blood Negative (Normal) Ketones Negative (Normal) Glucose Negative (Normal) Protein Negative (Normal) WBC Esterase Negative (Normal) Appearance Clear (Normal) Urine-Color Yellow (Normal) pH 6.0 (Normal) Range: 5.0-7.5 Specific [place] 1.018 (Normal) Range: 1.005-1.030 :59 MICROALBUMIN: CREATININE RATIO Comments: PATIENT WAS FASTINGPERFORMED BY: FoodflyHoly Name Medical CenterSgtebi5142 [facility] [id number] (52792) AND (76349) Microalb/Creat Ratio 4.3 {mg/g_creat} (Normal) Range: 0.0-30.0 Creatinine, Urine 98.4 mg/dL (Normal) Range: 15.0-278.0 Microalbumin, Urine 4.2 ug/mL (Normal) Range: 0.0-17.0 :59 METABOLIC PANEL, COMPREHENSIVE Comments: PATIENT WAS FASTINGPERFORMED BY: [facility]6[address] [facility] [id number] (55940) ALT (SGPT) 29 [iU]/L (Normal) Range: 0-40 [...] Glucose, Serum 99 mg/dL (Normal) Range: 65-99 36-Hpy-244039:59 LIPID PANEL (01507) Comments: PATIENT WAS FASTINGPERFORMED BY: [employer] [id number] LDL/HDL Ratio 3.0 {ratio_units} (Normal) Range: 0.0-3.2 LDL Cholesterol Calc 146 mg/dL (Abnormal) Range: 0-99 VLDL Cholesterol Brayden 20 mg/dL (Normal) Range: 5-40 HDL Cholesterol 48 mg/dL (Normal) Comments: According to ATP-III Guidelines, HDL-C >59 mg/dL is considered anegative risk factor for CHD. Cholesterol, Total 214 mg/dL (Abnormal) Range: 100-199 Triglycerides 102 mg/dL (Normal) Range: 0-149 :59 CBC WITH MANUAL DIFF (74327) Comments: PATIENT WAS FASTINGPERFORMED BY: [employer] [facility] [id number] Immature Grans (Abs) 0.0 {x10E3/uL} (Normal) Range: [...] 3.80-5.10 WBC 3.7 {x10E3/uL} (Abnormal) Range: 4.0-10.5 8-Ozb-714318:15 BILAT SCRN DIGITAL & CAD Radiology Report [...] a clinicall y suspiciousabnormality. Dictated on 10/04/11 2177 by Gabby TERRY,GabrieleTranscribed on 10/04/11 1601 by ITS IMPORTSign by Mikey Pierre MD on 10/04/11 1602 Sign by: Mikey Pierre MD 21-Rsj-318973:06 BMP Comments: appt 04/12/11 GAP 8 (Normal) [...] (Normal) Comments: Result: NEGATIVE COLOR YELLOW (Normal) 23-Epm-798750:54 CBCD,SMEAR DIFF RED CELL MORPH SeeNote {NORMAL} [...] 47-70 WBC 3.2 K/mm3 (Abnormal) Range: 4.4-11.0 02-Dkb-093782:54 COMP METABOLIC GAP 12 (Normal) Range: 5-15 [...] CHOL 207 mg/dL (Abnormal) Comments: <200 mg/dL Fqdeprjso534-612 mg/dL Borderline>240 mg/dL High Risk HDL 46 [...] mg/L (Normal) UR CREAT 27.6 mg/dL (Normal) 2-Lae-263021:53 BILAT SCRN DIGITAL & CAD Radiology Report See Note (Normal) Comments: Exam Number: [id number] MAMMOGRAM, BILATERAL SCREENING DIGITAL AND CAD HISTORYRoutine [...] werealso examined with computer- aided detection software ([employer], [employer] Inc[employer] Reported By: ANANYA ORTIZ M.D. 69-Sky-771789:28 LOWER EXT/JT ONLY (ROUTINE) Radiology Report See Note (Normal) Comments: Exam Number: [id number] CLINICAL:63-year-old female with a 5-week history of [...] mg/dL VLDL 20 mg/dL (Normal) Range: 5-40 05-Smq-085674:00 BILAT SCRN DIGITAL & CAD Radiology Report See Note (Normal) Comments: Exam Number: [id number] MAMMOGRAM, BILATERAL SCREENING DIGITAL AND CAD HISTORYRoutine [...] mammograms werealso examined with computer-aided detection software ([employer], [employer] Inc[employer] Reported By: ANANYA ORTIZ M.D. 02-Nov-20078:51 [...] 3.5-5.1 NA 142 mmol/L (Normal) Range: 136-145 36-Vsm-263126:13 Urinalysis, Office (40163) UA - BILIRUBIN Negative (Normal) UA - BLOOD Non Hemolyzed Trace (Normal) UA - GLUCOSE Negative (Normal) UA - KETONES Negative mg/dL (Normal) UA - LEUKOCYTE ESTERASE Trace (Normal) UA - NITRITE Negative (Normal) UA - PH 6.0 (Normal) UA - PROTEIN Negative mg/dL (Normal) UA - SPECIFIC GRAVITY 1.020 (Normal) URINE UROBILINGN PAKO TIMED 2 mg/dL (Normal) 40-Yex-858857:11 BILAT SCRN DIGITAL & CAD Radiology Report See Note (Normal) Comments: Exam Number: [id number] MAMMOGRAM, BILATERAL SCREENING DIGITAL AND CAD HISTORYRoutine [...] werealso examined with compute r-aided detection software ([employer], Inc.). Reported By: ANANYA ORTIZ M.D. 88-Ewm-081431:24 Microscopic Examination Comments: PATIENT NOT FASTINGPERFORMED BY: [facility]CoHoly Name Medical CenterBlwepg9204 [facility] [id number] Bacteria Moderate (Abnormal) Crystal Type Calcium Oxalate (Normal) Comments: Amorphous Sediment Crystals Present (Abnormal) Epithelial Cells (non renal) >10 {/hpf} (Abnormal) Range: 0 - 10 Mucus Threads Present (Abnormal) RBC None seen {/hpf} (Normal) Range: 0 - 3 WBC 0-5 {/hpf} (Normal) Range: 0 - 5 Yeast Present (Abnormal) 39-Omf-793955:24 URINALYSIS W/O MICRO (81389) Comments: PATIENT NOT FASTINGPERFORMED BY: [facility]6[address] [facility] [id number] Appearance Clear (Normal) Bilirubin Negative (Normal) Glucose Negative (Normal) Ketones Negative (Normal) Microscopic Examination See below: (Normal) Nitrite, Urine Negative (Normal) Occult Blood Negative (Normal) pH 5.5 (Normal) Range: 5.0-7.5 Protein Negative (Normal) Specific [place] 1.023 (Normal) Range: 1.005-1.030 Urine-Color Yellow (Normal) Urobilinogen,Semi-Qn 0.2 mg/dL (Normal) Range: 0.0-1.9 WBC Esterase 1+ (Abnormal) 75-Ixl-131270:24 METABOLIC PANEL, COMPREHENSIVE Comments: PATIENT NOT FASTINGPERFORMED BY: FoodflyHoly Name Medical CenterTzwaqq1085 [facility] [id number] (36372) A/G Ratio 2.0 (Normal) Range: 1.1-2.5 Albumin, [...] Sodium, Serum 143 mmol/L (Normal) Range: 135-148 52-Fyw-898696:24 CBC WITH MANUAL DIFF (80223) Comments: PATIENT NOT FASTINGClinical Information: ADD DRAW FEE [id number] ADD J 88583 PERFORMED BY: PAYAL [facility]CoMary [facility] [id number] [facility] [id number] Baso (Absolute) 0.0 {x10E3/uL} (Normal) Range: 0.0-0.2 [...] Normal throat fredo isolated. No beta-hemolyticstreptococcus isolated. 56-Hwy-598935:20 CHEST, PA AND LATERAL Radiology Report See Note (Normal) Comments: Exam Number: [id number] PA AND LATERAL CHEST HISTORYShortness of breath, [...] T PROT 7.1 g/dL (Normal) Range: 6.4-8.2 66-Jbj-34096:01 PFLIP CHOL 219 mg/dL (Abnormal) Comments: <200 [...] Symptoms Indication: Bronchitis Planned Observations LIPID PANEL (41198)Indication: Hypercholesterolemia On: 89-Fcr-892224:09 Request METABOLIC PANEL, COMPREHENSIVE (85239)Indication: Hypercholesterolemia On: 09-Uda-956069:09 Request TRIGLYCERIDES (60838)Indication: Hypercholesterolemia On: 0-Izg-549579:21 Request LDL CHOLESTEROL-DIRECT (41629)Indication: Hypercholesterolemia On: 7-Jja-298656:21 Request Metabolic Panel, Basic (47447)Indication: Hypertension On: 86-Dbk-727149:19 Request Metabolic Panel, Comprehensive (12569)Indication: Hypertension On: 18-Lni-449550:05 Request Comments: in six months (approximately) CBC, Platelets & Auto Diff (83576)Indication: Hypertension On: 77-Xom-167329:05 Request CALCIFIDIOL (95167) VIT D 25Indication: Preoperative clearance On: :32 Request Lipid Panel (04193)Indication: Preoperative clearance On: 68-Xko-466801:32 Request Metabolic Panel, Comprehensive (33511)Indication: Preoperative clearance On: :32 Request TSH (48984)Indication: Preoperative clearance On: :32 Request CBC WITH MANUAL DIFF (55439)Indication: Preoperative clearance On: :32 Request CBC, Platelets & Auto Diff (70596)Indication: Alteration of body temperature On: 05-Hic-755484:02 Request Metabolic Panel, Basic (41561)Indication: Hypertension On: 06-Oct-20158:43 Request URINALYSIS, W/ MICRO (42426)Indication: Hypertension On: 4-Pdu-715638:03 Request METABOLIC PANEL, COMPREHENSIVE (39127)Indication: Hypertension On: :03 Request LIPID PANEL (94301)Indication: Hypertension On: :02 Request CBC with auto diff (53062)Indication: Hypertension On: :02 Request CALCIFEDIOL (72377)Indication: Hypertension On: :17 Request TSH (18740)Indication: Hypertension On: :16 Request CBC WITH MANUAL DIFF (86780)Indication: Hypertension On: 86-Qbz-479184:16 Request Lipid Panel (14228)Indication: Hypercholesterolemia On: :16 Request Metabolic Panel, Comprehensive (32490)Indication: Hypertension On: 16-Nzz-035681:16 Request CALCIFIDIOL (49993) VIT D 25Indication: Benign breast cyst in female On: 92-Zlg-847907:39 Request URINALYSIS, W/ MICRO (14305)Indication: Hypertension On: 07-Mhv-227816:38 Request MICROALBUMIN: CREATININE RATIO (52622) AND (33765)Indication: Hypertension On: 63-Bzo-102600:38 Request METABOLIC PANEL, COMPREHENSIVE (58991)Indication: Hypertension On: 67-Ppk-472281:38 Request LIPID PANEL (19397)Indication: Hypertension On: 22-Uca-229601:38 Request CBC WITH MANUAL DIFF (10709)Indication: Hypertension On: :38 Request URINALYSIS (06460)Indication: Hypertension On: 32-Fdg-462776:12 Request CBC with manual diff (94622)Indication: Hypertension On: :53 Request Lipid Panel (67712)Indication: Hypertension On: :52 Request Metabolic Panel, Comprehensive (98386)Indication: Hypertension On: :52 Request Metabolic Panel, Basic (66483)Indication: Hypertension On: 09-Hjw-806653:12 Request METABOLIC PANEL, BASIC (38735)Indication: Hypertension On: 61-Nda-139271:27 Request MICROALBUMIN: CREATININE RATIO (58913) AND (57053)Indication: Hypercholesterolemia On: :39 Request CBC, PLATELETS & AUT DIFF (78317)Indication: Hypercholesterolemia On: :39 Request URINALYSIS (32538)Indication: Hypercholesterolemia On: :39 Request LIPID PANEL (57831)Indication: Hypercholesterolemia On: :39 Request METABOLIC PANEL, COMPREHENSIVE (77952)Indication: Hypercholesterolemia On: :39 Request URINALYSIS, W/ MICRO (07843)Indication: Hypertension On: :58 Request MICROALBUMIN: CREATININE RATIO (68834) AND (49753)Indication: Hypertension On: :58 Request METABOLIC PANEL, COMPREHENSIVE (08091)Indication: Hypertension On: :58 Request LIPID PANEL (44027)Indication: Hypertension On: :58 Request CBC WITH MANUAL DIFF (16165)Indication: Hypertension On: :58 Request Rapid Strep Test, Office (52248)Indication: Pharyngitis, acute On: 65-Tpp-48063:54 Request LIBBY CULTURE-OTHER (48510)Indication: Pharyngitis, acute On: 65-Xxk-11543:54 Request LIPID PANEL (28204)Indication: Hypercholesterolemia On: :11 Request HEPATIC FUNCTION PANEL (68898)Indication: Hypercholesterolemia On: 1-Ttu-376320:11 Request Comments: in six months CBC WITH MANUAL DIFF (51449)Indication: Hypertension On: 45-Mfq-126329:35 Request LIPID PANEL (11937)Indication: Hypertension On: 21-Zhp-837283:34 Request METABOLIC PANEL, COMPREHENSIVE (57480)Indication: Hypertension On: 67-Rxw-133863:34 Request Planned Encounters Medical; [facility] 4 Month Fu - On: 15-Jan-2019 11:30 [facility] Damaris TERRY, Sade Butt MD Planned Procedures EsophagramBy: Sade Ocampo MD On: 26-Sep-2018 Intent Sade Ocampo MD Comments: with a 12 mm tablet swallow Ultrasound - ThyroidBy: Damaris TERRY, On: 11-Sep-2018 Intent Sade Butt MD DEXA SCAN AXIAL SKELETON (02532)By: On: 06-Apr-2018 Intent Sade Ocampo MD, MD, Dana M MAMMOGRAM BREAST BILATERAL On: 16-Mar-2018 Intent SCREENING DIGITAL (00841)By: Sade Ocampo MD, MD, Dana M EKG (70787)By: Sade Ocampo MD On: 13-Feb-2018 Intent Sade Ocampo MD Radiology - Hand - RightBy: Damaris On: 29-Jan-2018 Intent Sade TERRY MD, Dana M Radiology - Hip - LeftBy: Damaris On: 12-May-2017 Intent Sade TERRY MD, Dana M Radiology - Lumbar SpineBy: Dmaaris On: 12-May-2017 Intent Sade TERRY MD, Dana M MAMMOGRAM BREAST BILATERAL On: 13-Mar-2017 Intent SCREENING DIGITAL (52460)By: Sade Ocampo MD, MD, Dana M Aerosol Treatment (38746)By: Bianca On: 20-Jan-2016 Intent Dora RG MAMMOGRAM, SCREENING, BOTH BREAST On: 02-Oct-2015 Intent (75068)By: Sade Ocampo MD, MD, Dana M Bone Density StudyBy: Damaris TERRY, On: 02-Oct-2015 Intent Sade Butt MD BILATERAL MAMMOGRAMS (90298)By: On: 21-Sep-2015 Intent Sade Ocampo MD, MD, Dana M Prevnar 13 (35252)By: Damaris TERRY, On: 17-Oct-2014 Intent Sade Butt MD BILATERAL MAMMOGRAMS (62328)By: On: 16-Sep-2014 Intent Sade Ocampo MD, MD, Dana M Breast Screening - BilateralBy: On: 16-Sep-2013 Intent Sade Ocampo MD, MD, Dana M Rocephon Injection, 1 Gm On: 20-Nov-2012 Intent (J0696)By: Sade Ocampo MD Comments: Lot #[id number]-8/14Site-bilateral hipsDose- 2 gramsgiven by: IFRAH Anderson MD, Dana M THER/PROPH/DIAG INJ, SC/IM On: 20-Nov-2012 Intent (16874)By: Damaris TERRY, Sade Ocampo MD, Sade Barbosa Eprescribed prescriptions On: 08-Nov-2012 Intent (G8553)By: Damaris TERRY, Sade Ocampo MD, Sade Barbosa PNEUM VAC ADLT/IMUMNOSPR, SBC/INTRM On: 15-Oct-2012 Intent (58819)By: Jacquelyn Steven LPN Comments: Lot: [id number]: 63Mxo87Oer: 0.5mlRoute: IMSite: L deltoidGiven by: IFRAH Suh IMMUNIZ ADMNIN, 1 VAC, SNGL/COMBO On: 15-Oct-2012 Intent (89411)By: Jacquelyn Steven LPN Breast Screening - BilateralBy: On: 08-Oct-2012 Intent Damaris TERRY, Sade Ocampo MD, Sade Barbosa IMMUNIZ ADMNIN, 1 VAC, SNGL/COMBO On: 08-Oct-2012 Intent (99354)By: Damaris TERRY, Sade Ocampo MD, Sade Barbosa PNEUM VAC ADLT/IMUMNOSPR, SBC/INTRM On: 08-Oct-2012 Intent (02935)By: Sade Ocampo MD, MD, Sade Barbosa IMMUNIZ ADMNIN, 1 VAC, SNGL/COMBO On: 08-Oct-2012 Intent (16443)By: DAVID Nina FLU VAC, SPLIT, >3 YEARS, INTRAMUSC On: 08-Oct-2012 Intent (22941)By: DAVID Nina MRI - Knee(s) - LeftBy: Donovan KIDD, On: 30-Dec-2011 Intent Alissa Garcia PHYSICAL THERAPY EVALUATION On: 30-Dec-2011 Intent (71096)By: Alissa Man CNP Doppler Ultrasound OtherBy: Doonvan On: 30-Dec-2011 Intent Alissa KIDD Radiology - Knee - LeftBy: Donovan On: 30-Dec-2011 Intent Alissa KIDD Breast Screening - BilateralBy: On: 04-Aug-2011 Intent Sade Ocampo MD, MD, Sade M Eprescribed prescriptions On: 10-Jan-2011 Intent ([id number])By: Sade Ocampo MD, MD, Dana M EKG ([id number])By: DAVID Nina On: 12-Oct-2010 Intent MAMMOGRAM, SCREENING, BOTH BREASTS On: 20-Sep-2010 Intent ([id number])By: Haley Chaparro DO EKG ([id number])By: Sade Ocampo MD On: 17-Sep-2009 Intent Sade Ocampo MD MAMMOGRAM, SCREENING, BOTH BREASTS On: 17-Sep-2009 Intent ([id number])By: Sade Ocampo MD, MD, Dana M MAMMOGRAM, SCREENING, BOTH BREASTS On: 23-Sep-2008 Intent ([id number])By: Lara Iglesias Nuclear Stress Test/Stress On: 19-Oct-2007 Intent SPECT/TreadmillBy: Haley Chaparro DO EKG ([id number])By: Haley Chaparro DO On: 19-Oct-2007 Intent Comments: ekg showed normal sinus rhythym, normal axis, no acute st/t wave changes nsivcd Bio Z ([id number])By: Haley Chaparro DO On: 19-Oct-2007 Intent Comments: good paremeterss IMMUNIZ ADMNIN, 1 VAC, SNGL/COMBO On: 22-Aug-2007 Intent ([id number])By: Shruthi Louis LPN PNEUM VAC ADLT/IMUMNOSPR, SBC/INTRM On: 22-Aug-2007 Intent ([id number])By: Shruthi Louis LPN Comments: lot # [id number] exp- 09/06 LDLT patient tolerated well Flu Vaccine, Split IM ([id number])By: On: 22-Aug-2007 Intent Shruthi Louis LPN Comments: lot #[id number] exp- 02/04 RDLT patient tolerated well SPECIMEN HNDLNG/TRNSPRT, OFFC > LAB On: 18-Jun-2007 Intent ([id number])By: NAYELI DIAMOND CNP Pulse Oximetry ([id number])By: Maico, On: 18-Jun-2007 Intent DAVID Radiology - Chest- PA and LatBy: On: 09-Feb-2007 Intent Lacey Sherman DO Aerosol Treatment ([id number])By: Lane On: 09-Feb-2007 Intent Lacey SALAZAR Comments: [...] glutealGiven by: Magalys Michael LPN Inhaler Demo ([id number])By: DARA KIDD, On: 07-Feb-2007 Intent NAYELI Aerosol Treatment ([id number])By: DARA On: 07-Feb-2007 Intent NAYELI KIDD Comments: moderate improvement after treatment--still tons of wheezing diffuse inspir and exp IMMUNIZ ADMNIN, 1 VAC, SNGL/COMBO On: 13-Oct-2006 Intent ([id number])By: Sade Ocampo MD, MD, Dana M FLU VAC, SPLIT, >3 YEARS, INTRAMUSC On: 13-Oct-2006 Intent ([id number])By: Sade Ocampo MD, MD, Dana M MAMMOGRAM, SCREENING, BOTH BREASTS On: 13-Oct-2006 Intent ([id number])By: Sade Ocampo MD, MD, Dana M EKG ([id number])By: Sade Ocampo MD On: 13-Oct-2006 Intent Sade Ocampo MD Bio Z ([id number])By: Sade Ocampo MD On: 13-Oct-2006 Intent Sade [...] The patient does have durable 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 The patient h as noticed nothing from the geriatic depression scale. Other providers contributing to the patient's care are equal opportunity director, gastrologist (Dr. Pabon ) and other: [facility]Encounter Diagnosis: Encounter for Medicare annual [...] Nutrition: balanced diet and supplemental vitamins. The ne dical issues the patient is following up [...] [facility] End: 13-Sep-2006 7:17 [place] Harmeet garcia guarantor
--- OUTSIDE RECORDS SUMMARY | 2019-01-17 14:49 | XMS RPT_ITS | Continuity of Care Document ---
:1945 Author Organization [facility] Address [address] [facility] [address] [place] [address] Phone Care Team Providers Name Role Phone [...] annual wellness exam (Z00.00, V70.0) Comments: [facility] colon[facility]-17 3 polyps recheck [...] days Quantity: 90 {Syrup} Refills: 0 Ordered:06-Nov-2008 DVAID Nina Start : 06-Nov-2008 End : 30-Mar-2009 [...] : 06-Nov-2008 End : 30-Mar-2009 Inactive [place]STATIN, [id number]/GM (External Powder) uad Powder bid to affected [...] 19-Mar-2009 Well woman exam (Z01.419, V72.31) Comments: [facility] BSO bd 2012 good. mamm 7-14 with [...] Result: Comments: See Note; NOTES: [facility] Imaging Services [address] [place] [address] Thyroid MR#: [id number] Acct: [id number] Name: SACHIN SCHUSTER Rep #: [id number] : [birth year] F 72 From: Hugo Ventura MD PCP: Sade Ocampo MD Status: REG CLI Study: Thyroid Date of Exam: 09/19/18 Exam# [id number] Ordering Dr: Sade Ocampo MD STUDY: THYROID [...] MD at 9:15 EST , Service support [phone], CC: Sade Ocampo MD Student Development Specialist: Signed 24-May-2018 Chest PA and Lateral Result: Comments: See Note; NOTES: [facility] Imaging Services [address] [place] [address] Chest PA and Lateral MR#: [id number] Acct: [id number] Name: SACHIN SCHUSTER Rep #: [id number] : 1945 F 72 From: Jose Elias Campbell MD PCP: Sade Ocampo MD Status: REG CLI Study: Chest PA and Lateral Date of Exam: 05/24/18 Exam# [id number] Ordering Dr: Teodoro Sanchez MD STUDY: X-RAY [...] CC: Sade Ocampo MD; Teodoro Sanchez MD Student Development Specialist: Signed 30-Apr-2018 PET/CT Tumor Base -Thigh Init Result: Comments: See Note; NOTES: [facility] Imaging Services [address] [place] [address] PET/CT Tumor Base -Thigh Init MR#: [id number] Acct: [id number] Name: SACHIN SCHUSTER Rep # : [id number] : 1945 F 72 From: Walter Monzon DO PCP: Sade Ocampo MD Status: REG CLI Study: PET/CT Tumor Base -Thigh Init Date of Exam: 04/30/18 Exam# [id number] Ordering Dr: Sade Ocamop MD EXAMINATION: FDG PET/CT INDICATIONS: A 72-year-old [...] Service support , CC: Sade Ocampo MD Student Development Specialist: Signed 24-Apr-2018 Dexa Bone Density Study Result: Comments: See Note; NOTES: [facility] Imaging Services [address] [place] [address] Dexa Bone Density Study MR#: [id number] Acct: [id number] Name: SACHIN SCHUSTER Rep #: [id number] : 1945 F 72 From: Mikey Pierre MD PCP: Sade Ocampo MD Status: REG CLI Study: Dexa Bone Density Study Date of Exam: 04/24/18 Exam# [id number] Ordering Dr: Sade Ocampo MD STUDY: DUAL [...] Mikey Pierre MD at 14:05 EDT Tel [phone], Service support , CC: Sade Ocampo MD Student Development Specialist: Signed 19-Apr-2018 Downtime Report Result: Comments: See Note; NOTES: [facility] Medical Records Department [address] [place] [address] Downtime Report MR#: [id number] Acct: [id number] Name: SACHIN SCHUSTER Rep #: [id number] : 1945 72 From: Donte De Jesus PCP: Sade Ocampo MD Status: REG CLI This patient was seen during an EMR downtime April 02, 2018 - April 09, 2018. This patient may have a combination of p aper and electronic documentation or all paper documentation. All documentation is viewable within the e-chart portion of [employer] for each patient visit. 17-Apr-[address] w/CCTA Result: Comments: See Note; NOTES: [facility] Imaging Services [address] [place] [address] w/CCTA MR#: [id number] Acct: [id number] Name: SACHIN SCHUSTER Rep #: [id number] : 1945 F 72 From: Mikey Pierre MD PCP: Sade Ocampo MD Status: REG CLI Study: Limited Chest CT w/CCTA Date of Exam: 04/17/18 Exam# [id number] Ordering Dr: Sade Ocampo MD STUDY: CT [...] Mikey Pierre MD at 15:38 EDT Tel [phone], Service support , CC: Sade Ocampo MD Student Development Specialist: Signed 09-Apr-2018 SCREENING MAMM (CAD), BILAT Result: Comments: See Note; NOTES: [facility] Imaging Services [address] [place] [address], [place] [address] SCREENING MAMM (CAD), BILAT MR#: [id number] Acct: [id number] Name: SACHIN SCHUSTER Rep #: [id number] : 1945 F 72 From: Valentín Gross MD PCP: Sade Ocampo MD Status: REG CLI Study: SCREENING MAMM (CAD), BILAT Date of Exam: 04/09/18 Exam# [id number] Ordering Dr: Sade Ocampo MD MAMM OGRAPHY [...] delay biopsy of a clinically suspicious abnormality. [id number] Electronically Signed: Valentín Gross MD at 14:15 EDT Tel , Service support [phone], CC: Sade Ocampo MD Student Development Specialist: Signed 30-Jan-2018 Hand Min 3 Views Result: Comments: See Note; NOTES: [facility] Imaging Services [address] [place] [address] Hand Min 3 Views MR#: [id number] Acct: [id number] Name: SACHIN SCHUSTER Rep #: [id number] D OB: 1945 F 72 From: Fernando Oliva DO PCP: Sade Ocampo MD Status: REG CLI Study: Hand Min 3 Views Date of Exam: 01/30/18 Exam# [id number] Ordering Dr: Sade Ocampo MD STUDY: X-RAY [...] Service support , CC: Sade Ocampo MD Student Development Specialist: Signed 18-Dec-2017 Urgent Care Visit Report Result: Comments: See Note; NOTES: [address] [place], [place] [address] OFFICE VISIT Date of Service: 12/18/17 MR#: [id number] Acct: [id number] Name: SACHIN SCHUSTER p #: [id number] : 1945 Provider: Kyle JIMENEZ Age/Sex: 72/F Location: [facility] Status: Signed Intake Vital Signs12/18/17 Height 5 ft 2 in 12/18/17 Weight: 170 lb 8 oz Intake Visit 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 This note was generated with [employer] software. It may contain incorrect words, spelling, [...] Result: Comments: See Note; NOTES: [facility] Imaging Services [address] [place] [address] Verdana 4d Hip 2-3 Views with Pelvis MR#: [id number] Acct: [id number] Name: SACHIN SCHUSTER Rep #: [id number] : 1945 F 71 From: Mikey Pierre MD PCP: Sade Ocampo MD Status: [facility] CL Study: Hip 2-3 Views with Pelvis Date of Exam: 05/12/17 Exam# [id number] Ordering Dr: Kodi Ocampo MD STUDY: X-RAY [...] Mikey Pierre MD at 12:44 EDT Tel [phone], Service support , CC: Sade Ocampo MD Student Development Specialist: Signed 12-May-2017 L/S Spine Min 4 Views Result: Comments: See Note; NOTES: [facility] Imaging Services [address] [place] [address] Verdana 4d L/S Spine Min 4 Views MR#: [id number] Acct: [id number] Name: SACHIN SCHUSTER p #: [id number] : 1945 F 71 From: Mikey Pierre MD PCP: Sade Ocampo MD Status: REG CLI Study: L/S Spine Min 4 Views Date of Exam: 05/12/17 Exam# [id number] Ordering Dr: Sade Ocampo MD STUDY: X-RAY [...] Pierre MD a t 12:43 EDT Tel [phone], Service support , CC: Sade Ocampo MD Student Development Specialist: Signed 29-Mar-2017 Breast Limited Unilateral Result: Comments: See Note; NOTES: [facility] Imaging Services [address] [place] [address] Verdana 4d Breast Limited Unilateral MR#: [id number] Acct: [id number] Name: SACHIN SCHUSTER Rep #: [id number] : 1945 F 71 From: Mikey Pierre MD PCP: Sade Ocampo MD Status: REG CLI Study: Breast Limited Unilateral Date of Exam: 03/29/17 Exam# [id number] Ordering Dr: Kodi Ocampo MD STUDY: ULTRASOUND [...] Mikey Pierre MD at 15:51 EDT Tel [phone], Service support , CC: Sade Ocampo MD Student Development Specialist: Signed 22-Mar-2017 SCREENING MAMM (CAD), BILAT Result: Comments: See Note; NOTES: [facility] Imaging Services [address] [place] [address] Verdana 4d SCREENING MAMM (CAD), BILAT MR#: [id number] Acct: [id number] Name: HELLEN SCHUSTER Rep #: [id number] : 1945 F 71 From: Mikey Pierre MD PCP: Sade Ocampo MD Status: REG CLI Study: SCREENING MAMM (CAD), BILAT Date of Exam: 03/22/17 Exam# [id number] Ordering Dr: Sade Ocampo MD MAMMOGRAPHY - [...] delay biopsy of a clinically suspicious abnormality. [id number] Electronically Signed: Mikey Pierre MD at 8:05 EDT Tel [phone], Service support , CC: Sade Ocampo MD Student Development Specialist: Signed 21-Jun-2016 PT D/C Summary (1) Result: Comments: See Note; NOTES: [facility] Physical Therapy Health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 Thank you for the referral of this patient. Sincerely, An carmel Cunningham <Electronically signed by Dora DODSON> 06/21/16 9017 CC: RADHA COTTRELL; Sade Ocampo MD; OUT OF TOWN DOCTOR Signed 25-May-2016 Re-Evaluation - PT (1) Result: Comments: See Note; NOTES: [facility] [address] [place] [address] Fax [facility]EEVALUATION / [facility] MR#: [id number] Acct: [id number] Name: SACHIN SCHUSTER Rep #: [id number] : 1945 70 From: Dora DODSON Referring DrHien: OUT OF TOWN DOCTOR Status: REG RCR Insurance: MEDICARE PART A B AET[employer] Out of [facility] Doctor, RADHA COTTRELL It has been my [...] do not hesitate to contact me at [phone] by phone or if you have questions or concerns regarding this new plan of care! Sincerely, Dora Cunningham <Electronically signed by Dora Cunningham MPT> 05/25/16 191 CC: RADHA COTTRELL; Sade Ocampo MD; OUT OF [facility] DOCTOR Signed For Medicare only, by signing this I certify the pl an of care. Physicians Signature Date 29-Apr-2016 Inital Evaluation (1) - PT Result: Comments: See Note; NOTES: [facility] [address] [place], [place] [address] Fax REHABILITATION SE RVICES INITIAL EVALUATION MR#: [id number] Acct: [id number] Name: SACHIN SCHUSTER Rep #: [id number] : 1945 70 From: Dora Cunningham MPT [...] walking in the house or at the [place] to see her mom. Pt had trouble [...] to be FAXED BACK to us at [phone] for Medicare purposes. Please let me kn [...] Result: Comments: See Note; NOTES: [facility] Imaging Services [address] [facility] [place] [address] Verdana 4d Lower Ext Joint Only (Routine) MR#: [id number] Acct: [id number] Na me: SACHIN SCHUSTER Rep #: [id number] : 1945 F 70 From: Hermann Inman MD PCP: Sade Ocampo MD Status: REG CLI Study: Lower Ext Joint Only (Routine) Date of Exam: 03/09/16 Exam# [id number] O jhoan Dr: Marck Armendariz STUDY: MRI [...] FACR at 8:04 EDT , Service support [phone], CC: MARCK ARMENDARIZ; Sade Ocampo MD Student Development Specialist: Signed 28-Oct-2015 Bilat Scrn Digital AND CAD Result: Comments: See Note; NOTES: [facility] Imaging Services [address] [place] [address] Verdana 4d Bilat Scrn Digital AND CAD MR#: [id number] Acct: [id number] Name: SACHIN SCHUSTER Rep #: [id number] : 1945 F 69 From: Jose Elias Campbell MD PCP: Sade Ocampo MD Status: REG CLI Study: Bilat Scrn Digital AND CAD Date of Exam: 10/28/15 Exam# [id number] Ordering Dr: Sade Ocampo MD MAMMOGRAPHY - [...] delay biopsy of a clinically suspicious abnormality. [id number] Electronically Betsy d: Elijah Campbell MD at 11:23 EST Tel , Service support [phone], CC: Sade Ocampo MD Student Development Specialist: Signed 28-Oct-2015 Dexa Bone Density Study (HP) Result: Comments: See Note; NOTES: [facility] Imaging Services [address] [place] [address] Verdana 4d Dexa Bone Density Study (HP) MR#: [id number] Acct: [id number] Name : SACHIN SCHUSTER Rep #: [id number] : 1945 F 69 From: Mikey Pierre MD PCP: Sade Ocampo MD Status: [facility] CL Study: Dexa Bone Density Study (HP) Date of Exam: 10/28/15 Exam# [id number] Ella lori Dr: Sade Ocampo MD STUDY: [...] Mikey Pierre MD at 8:33 EST Tel [phone], Service support [phone], CC: Sade Ocampo MD Student Development Specialist: Signed 27-Oct-2014 Bilat Scrn Digital AND CAD Result: Comments: See Note; NOTES: [facility] Imaging Services [address] [place] [address] Breast Imaging Report MR#: [id number] Acct: [id number] Name: Leigh Ann SCHUSTER Rep #: [id number] : 1945 F 68 From: Jose Elias Campbell MD PCP: Sade Ocampo MD Status: REG CLI Study: Bilat Scrn Digital AND CAD Date of Exam: 10/27/14 Exam# [id number] Ordering Dr: Sade Ocampo MD MAMM OGRAPHY [...] Elijah Campbell MD at 14:42 EST Tel [phone], Service supp ort [phone], CC: Sade Ocampo MD Student Development Specialist: Signed 17-Oct-2014 EKG (61263) Comments: see scanned document of test done to see results reviewed today with patient Result: [MEASUREMENTS ANALYSIS] Date of Test: 10/17/2014 10:58:06; Heart Rate: 77; WA Interval: 142; QRS: 96; QT Interval: 382; Corrected QT Interval (QTc): 411; P Wave [place]: 43; QRS Wave [place]: 10; T Wave [place]: -1; Blood Pressure: 120/80 [ECG DIAGNOSTIC STATEMENTS] Date of Test: 10/17/2014 10:58:06; Summary: Sinus Rhythm WITHIN NORMAL LIMITS 21-May-2014 Breast Unilateral Result: Comments: See Note; NOTES: [facility] Imaging Services [address] [place] [address] Ultrasound Report MR#: [id number] Acct: [id number] Name: Leigh Ann SCHUSTER Rep #: [id number] : 1945 F 68 From: Valentín Gross MD PCP: Sade Ocampo MD Status: REG CLI Study: Breast Unilateral Date of Exam: 05/21/14 Exam# [id number] Ordering Dr: Teodoro Humphries MD STUDY: ULTRAS [...] at 17:35 EDT Tel , Service support [phone], CC: Sade Ocampo MD; Teodoro Humphries MD Student Development Specialist: Signed 25-Feb-2014 Upper Ext Joint Only(Routine) Result: Comments: See Note; NOTES: [facility] Imaging Services [address] [place] [address] MRI Report MR#: [id number] Acct: [id number] Name: Leigh Ann SCHUSTER Rep #: [id number] : 1945 F 68 From: Hossein Matos MD PCP: Sade Ocampo MD Status: REG CLI Study: Upper Ext Joint Only(Routine) Date of Exam: 02/25/14 Exam# [id number] Ordering Dr: Christian Beard DO STUDY: MRI [...] MD at 11:58 EDT , Service support [phone], CC: Sade Ocampo MD; Christian Beard Student Development Specialist: Signed 14-Feb-2014 Shoulder min 2 Views Result: Comments: See Note; NOTES: [facility] Imaging Services [address] [place] [address] Radiology Report MR#: [id number] Acct: [id number] Name: Leigh Ann SCHUSTER Rep #: [id number] : 1945 F 68 From: Mikey Pierre MD PCP: Sade Ocampo MD Status: REG CLI Study: Shoulder min 2 Views Date of Exam: 02/14/14 Exam# [id number] Ordering Dr: Christian Beard DO STUDY: X [...] Mikey Pierre MD at 14:06 EDT Tel [phone], Service support [phone], 0055 RAD/Shoulder min 2 Views IMPRESSION: Degenerative changes of the acromioclavicular joint. Electronically Signed: Mikey Pierre MD at 14:06 EDT Tel [phone], Service support [phone], CC : Sade Ocampo MD; Christian Beard Student Development Specialist: Signed 16-Oct-2013 Breast Unilateral Result: Comments: See Note; NOTES: [facility] Imaging Services [address] [place] [address] Ultrasound Report MR#: [id number] Acct: [id number] Name: Leigh Ann SCHUSTER Rep #: [id number] : 1945 F 67 From: Mikey Pierre MD PCP: Sade Ocampo MD Status: REG CLI Study: Breast Unilateral Date of Exam: 10/16/13 Exam# [id number] Ordering Dr: Sade Ocampo MD STUDY: ULT [...] M.D. at 16:45 EST , Service support [phone], CC: Sade Ocampo MD Student Development Specialist: Signed 11-Oct-2013 Bilat Scrn Digital & CAD Result: Comments: See Note; NOTES: [facility] Imaging Services [address] [place] [address] Breast Imaging Report MR#: [id number] Acct: [id number] Name: Leigh Ann SCHUSTER Rep #: [id number] : 1945 F 67 From: Mikey Pierre MD PCP: Sade Ocampo MD Status: REG CLI Exam# [id number] Ordering Dr: Sade Ocampo MD MAMMOGRAPHY - [...] M.D. at 15:33 EST , Service support [phone], CC: Sade Ocampo MD Student Development Specialist: Signed Immunization Name Dates Details Influenza (3 years and up) on: 13-Oct-2006 Influenza (3 years and up) on: 22-Aug-2007 Comments: lot #[id number] exp- 02/04 RDLT patient tolerated well Pneumococcal [...] Living Situation: Lives with spouse. Comments: , Catholic andimportant DPSHAMEKA schuster [phone] Status: Active No Caffeine Use Status: Active [...] 84 /min Comments: Pattern: Regular Respiration Rate 35687 /min Comments: Pattern: Unlabored O2 SAT 98 [...] 0.00 cm Results Date Description Value Details 17-Uap-589984:55 Anti TPO Antibody (11335) Comments: PATIENT NOT FASTINGPERFORMED BY: [facility]reetTsaile Health CenterDzktio1612 [facility] [id number] Thyroid Peroxidase (TPO) Ab 21 {IU/mL} (Normal) Range: 0-34 66-Xtj-473169:55 TSH (71011) Comments: PATIENT NOT FASTINGPERFORMED BY: [facility] InstituteKhzpaw8970 [facility] [id number] TSH 0.967 {uIU/mL} (Normal) Range: 0.450-4.500 16-Pcn-982682:55 T4, FREE (THYROXINE) (00136) Comments: PATIENT NOT FASTINGPERFORMED BY: [employer] Raqzec4656 [facility] [id number] T4,Free(Direct) 1.50 ng/dL (Normal) Range: 0.82-1.77 54-Oyu-101835:55 T3, FREE (TRIDOTHYRONINE) (14330) Comments: PATIENT NOT FASTINGPERFORMED BY: [facility] Hospital6370 [facility] [id number] Triiodothyronine (T3), Free 3.3 pg/mL (Normal) Range: 2.0-4.4 :08 LIBBY CULTURE-OTHER (22752) Comments: PATIENT NOT FASTINGPERFORMED BY: [facility] Hospital6370 [facility] [id number] Information: SRC: Result 1 RRF (Normal) Comments: Routine respiratory fredo Upper Respiratory Culture Final report (Normal) 53-Eft-511588:52 Rapid Strep Test, Office (23417) Rapid Strep Test, Office Negative (Normal) 93-Znz-706160:51 FLU A+B DIRECT AG, (RAPID) (69707) FLU A+B DIRECT AG, (RAPID) negative (Normal) 9-Xks-523635:09 LDL, Direct Comments: Comments: [facility] (refer to report for specific site)refer to report for address and phone number; fu 18 db COMMENT Test not performed (Normal) LDL,DIR 074343 147 mg/dL (Abnormal) Range: 0-99 Comments: Performed at: [facility] [id number] Director: Steve Carey PhD, Phone: [phone] :09 Triglycerides Comments: Comments: [facility] [address] [place], [address] TRIG 117 mg/dL (Normal) Comments: [...] ECLIA methodology Nonsmokers <3.9 Smokers <5.6Performed at: [facility] [id number] Director: Steve Carey PhD, Phone: [phone] 50-Jxb-295234:27 CRP Comments: [facility] [address] [place], [address] C-REACTIVE PROT 5.31 mg/L (Abnormal) Range: 0.0-3.0 Comments: C-Reactive Protein (CRP) provides useful information for thediagnosis, therapy and monitoring of inflammatory processesand associated diseases. For the evaluation of Relative Riskfor Cardiovascular Dise ase, a High Sensitivity CRP (HSCRP)should be ordered. 41-Liy-516357:27 Erythrocyte Sed Rate Comments: [facility] [address] [place], [place], [id number] SED RATE 3 mm/h (Normal) Range: 0-30 25-Xpa-893666:27 URINE HISTOPLASMA ANTIGEN Comments: [facility] (refer to report for specific site)refer to report for address and phone number UR Comments: TEST RESULT LIMITSHistoplasma Gal'krys Ag Ur <0.5 <0.5 ng/mLDisclaimer: This test was developed and its performance characteristics determined by [facility] RIZO (Ana) Tyron. It has not been cleared or approved by the Food and Drug Administration. [facility]. ORIGINAL REPORT ON FILE IN LAB AG CONTAINS ADDITIONAL TEST SITE INFORMATION. 2-Khj-074242:26 Metabolic Panel, Basic (21940) Comments: PATIENT NOT FASTINGPERFORMED BY: [facility] Pzpmwt7520 [facility] [id number] Calcium 10.0 mg/dL (Normal) Range: 8.7-10.3 Carbon [...] 8-27 Glucose 113 mg/dL (Abnormal) Range: 65-99 11-Eys-961470:23 Metabolic Panel, Comprehensive Comments: PATIENT NOT FASTINGPERFORMED BY: [facility]CoAtl[facility] InstituteIfkdvj9156 [facility] [id number] (14077) ALT (SGPT) 23 [iU]/L (Normal) Range: 0-32 [...] 8-27 Glucose 94 mg/dL (Normal) Range: 65-99 50-Inj-059024:23 CBC WITH MANUAL DIFF Comments: PATIENT NOT FASTINGPERFORMED BY: [facility]CoAtl[facility] InstituteWdrwav7852 [facility] [id number] Information: NURSE DRAW; fu DB 6-8 (25025) Immature Grans (Abs) 0.0 {x10E3/uL} (Normal) Range: [...] 3.77-5.28 WBC 3.2 {x10E3/uL} (Abnormal) Range: 3.4-10.8 26-Tna-741645:23 MICROALBUMIN: CREATININE RATIO Comments: PATIENT NOT FASTINGPERFORMED BY: Mo[facility]reet Knlmif2138 [facility] [id number] (93754) AND (87889) Alb/Creat Ratio 5.3 {mg/g_creat} (Normal) Range: 0.0-30.0 Albumin, Urine 3.7 ug/mL (Normal) Creatinine, Urine 70.0 mg/dL (Normal) 64-Bvv-077462:23 URINALYSIS (80996) Comments: PATIENT NOT FASTINGPERFORMED BY: [facility]reetAtl[facility] Rehabilitation InstituteTvtskj0468 [facility] [id number] Microscopic Examination MICNIP (Normal) Comments: Microscopic not indicated and not performed. Nitrite, Urine Negative (Normal) Urobilinogen,Semi-Qn 0.2 mg/dL (Normal) Range: 0.2-1.0 Bilirubin Negative (Normal) Occult Blood Negative (Normal) Ketones Negative (Normal) Glucose Negative (Normal) Protein Negative (Normal) WBC Esterase Negative (Normal) Appearance Clear (Normal) Urine-Color Yellow (Normal) pH 6.5 (Normal) Range: 5.0-7.5 Specific [place] 1.018 (Normal) Range: 1.005-1.030 52-Woi-469653:30 Culture, R/O Strep A Comments: [facility] [address] [place], [place], [address] CUSTREPA See Note (Normal) Comments: AVERY CultureNo Group A Beta Streptococcus isolated. * This cultures intended use is to screen for Beta Streptococcus A only. All other pathogens and potential pathogens will not be screened for or rep orted. If a complete workup of all potential pathogens is indicated an order for a routine throat culture is required. 4-Mtl-496713:10 ANTINUCLEAR ANTIBODIES DIRECT Comments: [facility] (refer to report for specific site)refer to report for address and phone number MILTON-DIRECT Negative (Normal) Comments: Performed at: [address] [id number] Director: Steve Craey PhD, Phone: [phone] 2-Gso-279913:10 Ferritin Comments: [facility] [address] [place], [place], [address] FERRITIN 251 ng/mL (Normal) Range: 8-252 70-Fyr-528671:40 Methymalonic Acid, Serum Comments: today; PATIENT NOT FASTINGPERFORMED BY: [facility] [id number] BY: [address] [id number] (387[address]) Methylmalonic Acid, Serum 198 nmol/L (Normal) Range: 0-378 80-Tgk-131157:40 Vitamin B-12 Comments: today; PATIENT NOT FASTINGPERFORMED BY: [facility] [id number] BY: [facility] [id number] (cyanocobalamin) (04618) Vitamin B12 353 pg/mL (Normal) Range: 211-946 90-Nfy-126601:23 HEPATITIS C ANTIBODY Comments: PATIENT NOT FASTINGPERFORMED BY: [facility] Mwfoen2412 [facility] [id number] Information: NURSE DRAW (99041) Hep C Virus Ab <0.1 {s/co_ratio} (Normal) Range: 0.0-0.9 Comments: Negative: < 0.8 Indeterminate: 0.8 - 0.9 Positive: > 0.9 . The CDC recommends that a positive HCV antibody result be followed up with a HCV Nucleic Acid Amplification test (336870). :57 Alanine Aminotransferas (SGPT) Comments: DR.CHARLICK VERDIN.[facility] [address] [place], [address] ALT 32 U/L (Normal) Range: 12-78 :57 ALB/GLOB Ratio Comments: DR.CHARLICK VERDIN.[facility] [facility] [address] [place], [address] A/G 1.2 {RATIO} (Normal) Range: 0.9-2.4 :57 Albumin, Serum Comments: DR.CHARLICK VERDIN.[facility] [address] [place], [address] ALB 3.7 g/dL (Normal) Range: 3.4-5.0 :57 Alkaline Phosphatase Comments: DR.CHARLICK VERDIN.[facility] [address] [place], [address] ALK P 93 U/L (Normal) Range: 50-136 :57 AST(SGOT) Comments: DR.CHARLICK VERDIN.[facility] [address] [place], [place], [id number] AST 22 U/L (Normal) Range: 15-37 :57 Basic Metabolic Profile (BMP) Comments: DR.CHARLICK VERDIN.[facility] [address] [place], [place], [address] GAP 8 (Normal) Range: 5-15 CO2 26.0 [...] Range: 70-110 :57 Bilirubin, Total Comments: DR.CHARLICK VERDIN.[facility] [address] [place], [place], [id number] T BILI 0.50 mg/dL (Normal) Range: 0.20-1.00 :57 Globulin Comments: DR.CHARLICK VERDIN.[facility] [address] [place], [place], [id number] GLOB 3.1 g/dL (Normal) Range: 2.3-3.5 :57 Lipid Profile Comments: DR.CHARLICK VERDIN.[facility] [address] [place], [address](124) VLDL 17 mg/dL (Normal) Range: 5-40 LDL [...] High Risk :57 Protein, Total Comments: DR.CHARLICK VERDIN.[facility] [address] [facility] [place], [address] T PROT 6.8 g/dL (Normal) Range: 6.4-8.2 :57 Thyroid Stim Hormone (TSH) Comments: DR.CHARLICK VERDIN.[facility] [address] [facility] [place], [address] TSH 1.36 {uIU/mL} (Normal) Range: 0.358-3.74 19-Mno-579796:40 Rapid Flu (84224 x 2) Comments: neg Influenza A Ag negative (Normal) 50-Kgm-31182:47 CBC W/Diff, Automated Comments: [facility] [address] [place] [address], [address] ; [address] Absolute Lymph 1.25 [...] 4.2-5.4 WBC 3.5 K/mm3 (Abnormal) Range: 4.4-11.0 78-Ilk-12045:47 Comprehensive Metabolic Profil Comments: [facility] [address] [place], [address] GAP 9 (Normal) Range: 5-15 CO2 25.0 [...] Range: 70-110 :47 Lipid Profile Comments: [facility] [address] [place], [place], [id number] VLDL 28 mg/dL (Normal) Range: 5-40 LDL [...] :47 Thyroid Stim Hormone (TSH) Comments: [facility] [address] [place], [address] TSH 1.13 {uIU/mL} (Normal) Range: 0.358-3.74 :47 Vitamin D,25 Hydroxy Comments: [facility] [address] [place], [place], [address] Vitamin D 25-OH 41.2 ng/mL (Normal) Comments: Vitamin D 25(OH) Status Range Deficiency <20 ng/mL (50nmol/L) Insuffciency 20 - 30 ng/mL (50 - 75 nmol/L) Sufficiency 30 - 100 ng/mL (75 - 250 nmol/L) Toxicity >100 ng/mL (>250 nmol/L) :53 URINALYSIS (71691) Comments: PATIENT NOT FASTINGPERFORMED BY: [facility] [id number] Information: [id number] Microscopic Examination MICNIP (Normal) Comments: Microscopic not indicated and not performed. Nitrite, Urine Negative (Normal) Urobilinogen,Semi-Qn 0.2 mg/dL (Normal) Range: 0.0-1.9 Bilirubin Negative (Normal) Occult Blood Negative (Normal) Ketones Negative (Normal) Glucose Negative (Normal) Protein Negative (Normal) WBC Esterase Negative (Normal) Appearance Clear (Normal) Urine-Color Yellow (Normal) pH 7.5 (Normal) Range: 5.0-7.5 Specific Erie 1.015 (Normal) Range: 1.005-1.030 2-Xwo-436255:53 URINE LIBBY CULTURE-IDENTIFICATN Comments: PATIENT NOT FASTINGPERFORMED BY: [facility]CoAtl[facility] InstituteAnrosk0328 [facility] [id number] ([id number]) Result 1 NG36 (Normal) Comments: No growth in 36 - 48 hours. Urine Culture,Comprehensive Final report (Normal) 85-Idi-35416:22 CBC W/Diff, Automated Comments: Test performed at:[facility] [address] [place], [place] [address] Absolute Lymph 1.45 {X10_3/ul} (Normal) Range: 0.83-4.51 [...] Comprehensive Metabolic Profil Comments: Test performed at:[facility] [address] [place] [address] GAP 6 (Normal) Range: 5-15 CO2 28.0 [...] :22 Lipid Profile Comments: Test performed at:[facility] [address] [place] [address] VLDL 27 mg/dL (Normal) Range: [...] Microalb:Creat Ratio,Random UR Comments: Test performed at:[facility] [address] [place] [address] MALB:CREAT 7.1 {mg/g_CRE} (Normal) MICROALBUMIN,UR 18.2 mg/L (Normal) UR CREAT 256.0 mg/dL (Normal) :22 Urinalysis, Complete Comments: How was Urine Obtained? CLEAN CATCHTest performed at:[facility] [address] [place] [address] CA OX CRYSTAL 1+ {/hpf} [...] CLARITY Sl. Cloudy (Normal) COLOR Yellow (Normal) 64-Lcj-20158:22 Vitamin D,25 Hydroxy Comments: Test performed at:[facility] [address] [place] [address] Vitamin D 25-OH 44.6 ng/mL (Normal) Comments: Vitamin D 25(OH) Status Range Deficiency <20 ng/mL (50nmol/L) Insuffciency 20 - 30 ng/mL (50 - 75 nmol/L) Sufficiency 30 - 100 ng/mL (75 - 250 nmol/L) Toxicity >100 ng/mL (>250 nmol/L) 33-Pyn-303415:55 CBCD ANC 2.4 {X10_3/uL} (Normal) Range: 2.0-7.7 [...] 4.2-5.4 WBC 4.4 K/mm3 (Normal) Range: 4.4-11.0 74-Bei-602945:55 CMP GAP 8 (Normal) Range: 5-15 CL [...] 7-18 GLU 94 mg/dL (Normal) Range: 70-110 79-Qgs-141013:55 UA Comments: How was Urine Obtained? CLEAN CATCH ANA 100 /ul (Abnormal) UOB 10 /ul (Abnormal) PRATEEK Negative (Normal) UROBU Normal mg/dL (Normal) VASQUEZ 6.0 (Normal) Range: 5.0 - 8.0 uPROTU Negative mg/dL (Normal) SGU 1.020 (Normal) Range: 1.002-1.030 KETU Negative mg/dL (Normal) BILIU Negative mg/dL (Normal) GLUR Normal mg/dL (Normal) UCLAR Clear (Normal) UCOL Yellow (Normal) 48-Htq-558421:23 Microscopic Examination Comments: PATIENT WAS FASTINGPERFORMED BY: [facility]CoAtl[facility] InstituteGsttfy8948 [facility] [id number] Bacteria None seen (Normal) Mucus Threads Present (Normal) Epithelial Cells (non renal) 0-10 {/hpf} (Normal) Range: 0 - 10 RBC None seen {/hpf} (Normal) Range: 0 - 3 WBC 0-5 {/hpf} (Normal) Range: 0 - 5 53-Irf-384226:51 BILAT SCRN DIGITAL & CAD Radiology Report [...] Pierre M.D.October 09, 2012 at 12:29:05 PM [phone] Signed GP/GP If you are the referring physician and would like to consult with theradiologist who provided this interpretation, please contact Santos Chatterjee at [phone]. If this radiologist is unavailable, youwill be directed to another radiologi st to assist. If you are a patient with a question regarding this report, pleasecontactyour referring physician directly. Professional Interpretation Provided By: Row44, Phone ,Fax These documents contain legally protected [...] 1235 Si gn by: Mikey Pierre MD 35-Xjv-342349:23 URINALYSIS, W/ MICRO (67274) Comments: PATIENT WAS FASTINGPERFORMED BY: [facility] [id number] Microscopic Examination See below: (Normal) Microscopic Examination MICRON (Normal) Comments: Microscopic follows if indicated. Nitrite, Urine Negative (Normal) Urobilinogen,Semi-Qn 1.0 mg/dL (Normal) Range: 0.0-1.9 Bilirubin Negative (Normal) Occult Blood Negative (Normal) Ketones Negative (Normal) Glucose Negative (Normal) Protein Negative (Normal) WBC Esterase Negative (Normal) Appearance Clear (Normal) Urine-Color Yellow (Normal) pH 7.5 (Normal) Range: 5.0-7.5 Specific Erie 1.021 (Normal) Range: 1.005-1.030 00-Huc-402493:23 MICROALBUMIN: CREATININE RATIO Comments: PATIENT WAS FASTINGPERFORMED BY: [employer]6370 [facility] [id number] ([id number]) AND (73614) Microalb/Creat Ratio 3.0 {mg/g_creat} (Normal) Range: 0.0-30.0 Microalbumin, Urine 2.5 ug/mL (Normal) Range: 0.0-17.0 Creatinine, Urine 82.1 mg/dL (Normal) Range: 15.0-278.0 83-Rha-775582:23 METABOLIC PANEL, COMPREHENSIVE Comments: PATIENT WAS FASTINGPERFORMED BY: [facility] [facility] [id number] ([id number]) ALT (SGPT) 29 [iU]/L (Normal) Range: 0-32 [...] Glucose, Serum 93 mg/dL (Normal) Range: 65-99 32-Jsx-825500:23 LIPID PANEL (04740) Comments: PATIENT WAS FASTINGPERFORMED BY: [facility] [address]fh6994 [facility] [id number] LDL/HDL Ratio 3.0 {ratio_units} (Normal) Range: 0.0-3.2 LDL Cholesterol Calc 145 mg/dL (Abnormal) Range: 0-99 HDL Cholesterol 49 mg/dL (Normal) Comments: According to ATP-III Guidelines, HDL-C >59 mg/dL is considered anegative risk factor for CHD. VLDL Cholesterol Brayden 22 mg/dL (Normal) Range: 5-40 Triglycerides 110 mg/dL (Normal) Range: 0-149 Cholesterol, Total 216 mg/dL (Abnormal) Range: 100-199 50-Prg-187761:23 CBC WITH MANUAL DIFF Comments: PATIENT WAS FASTINGPERFORMED BY: [facility] Hospital6370 [facility] [id number] Information: [id number] ([id number]) Immature Grans (Abs) 0.0 {x10E3/uL} (Normal) Range: [...] 3.77-5.28 WBC 3.6 {x10E3/uL} (Abnormal) Range: 4.0-10.5 2-Jbn-695434:23 KNEE,4 OR MORE VIEWS Radiology Report See [...] radiologist regarding this report, please call our [id number] line @ Dictated on 12/30/11 1234 by WALTER KAY MDTranscribed on 12/30/11 1655 by ITS IMPORTSign by WALTER KAY MD on 12/30/111655 Sign by: WALTER KAY MD 24-Fwr-207868:59 Microscopic Examination Comments: PATIENT WAS FASTINGPERFORMED BY: [employer]6370 [place] [facility] [id number] Bacteria None seen (Normal) Mucus Threads Present (Normal) Epithelial Cells (non renal) 0-10 {/hpf} (Normal) Range: 0 - 10 RBC 0-3 {/hpf} (Normal) Range: 0 - 3 WBC 0-5 {/hpf} (Normal) Range: 0 - 5 37-Lii-099200:59 URINALYSIS, W/ MICRO (56387) Comments: PATIENT WAS FASTINGPERFORMED BY: [employer]6370 [facility] [id number] Microscopic Examination See below: (Normal) Microscopic Examination MICRON (Normal) Comments: Microscopic follows if indicated. Nitrite, Urine Negative (Normal) Urobilinogen,Semi-Qn 0.2 mg/dL (Normal) Range: 0.0-1.9 Bilirubin Negative (Normal) Occult Blood Negative (Normal) Ketones Negative (Normal) Glucose Negative (Normal) Protein Negative (Normal) WBC Esterase Negative (Normal) Appearance Clear (Normal) Urine-Color Yellow (Normal) pH 6.0 (Normal) Range: 5.0-7.5 Specific Erie 1.018 (Normal) Range: 1.005-1.030 :59 MICROALBUMIN: CREATININE RATIO Comments: PATIENT WAS FASTINGPERFORMED BY: [facility]JobConnectAtl[facility] Rehabilitation InstituteGjmrfb8372 [facility] [id number] ([id number]) AND (93342) Microalb/Creat Ratio 4.3 {mg/g_creat} (Normal) Range: 0.0-30.0 Creatinine, Urine 98.4 mg/dL (Normal) Range: 15.0-278.0 Microalbumin, Urine 4.2 ug/mL (Normal) Range: 0.0-17.0 :59 METABOLIC PANEL, COMPREHENSIVE Comments: PATIENT WAS FASTINGPERFORMED BY: [employer]6370 [facility] [id number] (74177) ALT (SGPT) 29 [iU]/L (Normal) Range: 0-40 [...] Glucose, Serum 99 mg/dL (Normal) Range: 65-99 18-Jqg-528726:59 LIPID PANEL (19154) Comments: PATIENT WAS FASTINGPERFORMED BY: [employer]70 [facility] [id number] LDL/HDL Ratio 3.0 {ratio_units} (Normal) Range: 0.0-3.2 LDL Cholesterol Calc 146 mg/dL (Abnormal) Range: 0-99 VLDL Cholesterol Brayden 20 mg/dL (Normal) Range: 5-40 HDL Cholesterol 48 mg/dL (Normal) Comments: According to ATP-III Guidelines, HDL-C >59 mg/dL is considered anegative risk factor for CHD. Cholesterol, Total 214 mg/dL (Abnormal) Range: 100-199 Triglycerides 102 mg/dL (Normal) Range: 0-149 :59 CBC WITH MANUAL DIFF (02607) Comments: PATIENT WAS FASTINGPERFORMED BY: [employer]6370 [facility] [id number] Immature Grans (Abs) 0.0 {x10E3/uL} (Normal) Range: [...] 3.80-5.10 WBC 3.7 {x10E3/uL} (Abnormal) Range: 4.0-10.5 7-Meq-588329:15 BILAT SCRN DIGITAL & CAD Radiology Report [...] a clinicall y suspiciousabnormality. Dictated on 10/04/11 3397 by Gabby TERRY,GabrieleTranscribed on 10/04/11 1601 by ITS IMPORTSign by Mikey Pierre MD on 10/04/11 1602 Sign by: Mikey Pierre MD 77-Oyg-722654:06 BMP Comments: appt 04/12/11 GAP 8 (Normal) [...] (Normal) Comments: Result: NEGATIVE COLOR YELLOW (Normal) 23-Odz-319576:54 CBCD,SMEAR DIFF RED CELL MORPH SeeNote {NORMAL} [...] 47-70 WBC 3.2 K/mm3 (Abnormal) Range: 4.4-11.0 25-Igu-320097:54 COMP METABOLIC GAP 12 (Normal) Range: 5-15 [...] CHOL 207 mg/dL (Abnormal) Comments: <200 mg/dL Saspvqmjh580-009 mg/dL Borderline>240 mg/dL High Risk HDL 46 [...] mg/L (Normal) UR CREAT 27.6 mg/dL (Normal) 5-Rtr-198522:53 BILAT SCRN DIGITAL & CAD Radiology Report See Note (Normal) Comments: Exam Number: [id number] MAMMOGRAM, BILATERAL SCREENING DIGITAL AND CAD HISTORYRoutine [...] werealso examined with computer- aided detection software (Image1calendar, [employer] Reported By: ANANYA ORTIZ M.D. 92-Jqe-997013:28 LOWER EXT/JT ONLY (ROUTINE) Radiology Report See Note (Normal) Comments: Exam Number: [id number] CLINICAL:63-year-old female with a 5-week history of [...] mg/dL VLDL 20 mg/dL (Normal) Range: 5-40 17-Yxc-924244:00 BILAT SCRN DIGITAL & CAD Radiology Report See Note (Normal) Comments: Exam Number: [id number] MAMMOGRAM, BILATERAL SCREENING DIGITAL AND CAD HISTORYRoutine [...] mammograms werealso examined with computer-aided detection software (Image1calendar, [employer] Reported By: ANANYA ORTIZ M.D. 02-Nov-20078:51 [...] 3.5-5.1 NA 142 mmol/L (Normal) Range: 136-145 83-Lwx-766815:13 Urinalysis, Office (66565) UA - BILIRUBIN Negative (Normal) UA - BLOOD Non Hemolyzed Trace (Normal) UA - GLUCOSE Negative (Normal) UA - KETONES Negative mg/dL (Normal) UA - LEUKOCYTE ESTERASE Trace (Normal) UA - NITRITE Negative (Normal) UA - PH 6.0 (Normal) UA - PROTEIN Negative mg/dL (Normal) UA - SPECIFIC GRAVITY 1.020 (Normal) URINE UROBILINGN PAKO TIMED 2 mg/dL (Normal) 98-Nyb-071059:11 BILAT SCRN DIGITAL & CAD Radiology Report See Note (Normal) Comments: Exam Number: [id number] MAMMOGRAM, BILATERAL SCREENING DIGITAL AND CAD HISTORYRoutine [...] werealso examined with compute r-aided detection software ([employer], Inc[employer] Reported By: ANANYA ORTIZ M.D. 63-Pgi-475990:24 Microscopic Examination Comments: PATIENT NOT FASTINGPERFORMED BY: [facility]CoAtl[facility] Rehabilitation InstituteJfiyvq7038 [facility] [id number] Bacteria Moderate (Abnormal) Crystal Type Calcium Oxalate (Normal) Comments: Amorphous Sediment Crystals Present (Abnormal) Epithelial Cells (non renal) >10 {/hpf} (Abnormal) Range: 0 - 10 Mucus Threads Present (Abnormal) RBC None seen {/hpf} (Normal) Range: 0 - 3 WBC 0-5 {/hpf} (Normal) Range: 0 - 5 Yeast Present (Abnormal) 67-Psr-220810:24 URINALYSIS W/O MICRO (25521) Comments: PATIENT NOT FASTINGPERFORMED BY: [facility] Hospital6370 [facility] [id number] Appearance Clear (Normal) Bilirubin Negative (Normal) Glucose Negative (Normal) Ketones Negative (Normal) Microscopic Examination See below: (Normal) Nitrite, Urine Negative (Normal) Occult Blood Negative (Normal) pH 5.5 (Normal) Range: 5.0-7.5 Protein Negative (Normal) Specific Erie 1.023 (Normal) Range: 1.005-1.030 Urine-Color Yellow (Normal) Urobilinogen,Semi-Qn 0.2 mg/dL (Normal) Range: 0.0-1.9 WBC Esterase 1+ (Abnormal) 98-Yql-810948:24 METABOLIC PANEL, COMPREHENSIVE Comments: PATIENT NOT FASTINGPERFORMED BY: CollegeJobConnectAtl[facility] Rehabilitation InstituteQujrqd0299 [facility] [id number] ([id number]) A/G Ratio 2.0 (Normal) Range: 1.1-2.5 Albumin, [...] Sodium, Serum 143 mmol/L (Normal) Range: 135-148 14-Prs-323868:24 CBC WITH MANUAL DIFF (96642) Comments: PATIENT NOT FASTINGClinical Information: ADD DRAW FEE [id number] ADD J 50636 PERFORMED BY: [facility] [id number] [facility] [id number] Baso (Absolute) 0.0 {x10E3/uL} (Normal) Range: 0.0-0.2 [...] Normal throat fredo isolated. No beta-hemolyticstreptococcus isolated. 48-Wwr-770323:20 CHEST, PA AND LATERAL Radiology Report See Note (Normal) Comments: Exam Number: [id number] PA AND LATERAL CHEST HISTORYShortness of breath, [...] T PROT 7.1 g/dL (Normal) Range: 6.4-8.2 43-Ayi-08581:01 PFLIP CHOL 219 mg/dL (Abnormal) Comments: <200 [...] Symptoms Indication: Bronchitis Planned Observations LIPID PANEL (92106)Indication: Hypercholesterolemia On: 69-Pml-349226:09 Request METABOLIC PANEL, COMPREHENSIVE (17664)Indication: Hypercholesterolemia On: 57-Iem-138116:09 Request TRIGLYCERIDES (58713)Indication: Hypercholesterolemia On: 4-Njm-127424:21 Request LDL CHOLESTEROL-DIRECT (64991)Indication: Hypercholesterolemia On: 9-Xhh-993054:21 Request Metabolic Panel, Basic (41558)Indication: Hypertension On: 05-Xkd-216684:19 Request Metabolic Panel, Comprehensive (05400)Indication: Hypertension On: 13-Luw-394817:05 Request Comments: in six months (approximately) CBC, Platelets & Auto Diff (50821)Indication: Hypertension On: 52-Vlf-250082:05 Request CALCIFIDIOL (97939) VIT D 25Indication: Preoperative clearance On: :32 Request Lipid Panel (30941)Indication: Preoperative clearance On: 71-Abq-718298:32 Request Metabolic Panel, Comprehensive (71871)Indication: Preoperative clearance On: :32 Request TSH (91644)Indication: Preoperative clearance On: :32 Request CBC WITH MANUAL DIFF (29884)Indication: Preoperative clearance On: :32 Request CBC, Platelets & Auto Diff (80154)Indication: Alteration of body temperature On: 86-Sie-615234:02 Request Metabolic Panel, Basic (66036)Indication: Hypertension On: 06-Oct-20158:43 Request URINALYSIS, W/ MICRO (90881)Indication: Hypertension On: 0-Mtd-033574:03 Request METABOLIC PANEL, COMPREHENSIVE (98083)Indication: Hypertension On: :03 Request LIPID PANEL (39653)Indication: Hypertension On: :02 Request CBC with auto diff (75518)Indication: Hypertension On: :02 Request CALCIFEDIOL (94215)Indication: Hypertension On: :17 Request TSH (40989)Indication: Hypertension On: :16 Request CBC WITH MANUAL DIFF (98920)Indication: Hypertension On: 69-Tza-189370:16 Request Lipid Panel (87289)Indication: Hypercholesterolemia On: :16 Request Metabolic Panel, Comprehensive (58600)Indication: Hypertension On: 53-Jig-882048:16 Request CALCIFIDIOL (89873) VIT D 25Indication: Benign breast cyst in female On: 01-Ban-926211:39 Request URINALYSIS, W/ MICRO (89591)Indication: Hypertension On: 41-Aay-511571:38 Request MICROALBUMIN: CREATININE RATIO (59438) AND (56125)Indication: Hypertension On: 94-Ssm-144517:38 Request METABOLIC PANEL, COMPREHENSIVE (54838)Indication: Hypertension On: 97-Gpk-133921:38 Request LIPID PANEL (92113)Indication: Hypertension On: 46-Mvi-774664:38 Request CBC WITH MANUAL DIFF (51211)Indication: Hypertension On: :38 Request URINALYSIS (21833)Indication: Hypertension On: 55-Kxq-652060:12 Request CBC with manual diff (96749)Indication: Hypertension On: :53 Request Lipid Panel (77083)Indication: Hypertension On: :52 Request Metabolic Panel, Comprehensive (49293)Indication: Hypertension On: :52 Request Metabolic Panel, Basic (28185)Indication: Hypertension On: 14-Dha-169906:12 Request METABOLIC PANEL, BASIC (28159)Indication: Hypertension On: 12-Ryk-596305:27 Request MICROALBUMIN: CREATININE RATIO (09864) AND (46116)Indication: Hypercholesterolemia On: :39 Request CBC, PLATELETS & AUT DIFF (56846)Indication: Hypercholesterolemia On: :39 Request URINALYSIS (02164)Indication: Hypercholesterolemia On: :39 Request LIPID PANEL (69207)Indication: Hypercholesterolemia On: :39 Request METABOLIC PANEL, COMPREHENSIVE (48803)Indication: Hypercholesterolemia On: :39 Request URINALYSIS, W/ MICRO (05666)Indication: Hypertension On: :58 Request MICROALBUMIN: CREATININE RATIO (11921) AND (17329)Indication: Hypertension On: :58 Request METABOLIC PANEL, COMPREHENSIVE (04644)Indication: Hypertension On: :58 Request LIPID PANEL (77109)Indication: Hypertension On: :58 Request CBC WITH MANUAL DIFF (08257)Indication: Hypertension On: :58 Request Rapid Strep Test, Office (97898)Indication: Pharyngitis, acute On: 04-Yhe-98835:54 Request LIBBY CULTURE-OTHER (41045)Indication: Pharyngitis, acute On: 86-Yti-20400:54 Request LIPID PANEL (00789)Indication: Hypercholesterolemia On: :11 Request HEPATIC FUNCTION PANEL (28614)Indication: Hypercholesterolemia On: 2-Cdu-766855:11 Request Comments: in six months CBC WITH MANUAL DIFF (67334)Indication: Hypertension On: 60-Aer-652958:35 Request LIPID PANEL (99629)Indication: Hypertension On: 47-Ple-114560:34 Request METABOLIC PANEL, COMPREHENSIVE (59560)Indication: Hypertension On: 20-Swh-624269:34 Request Planned Encounters Medical; [facility] 4 Month Fu - On: 15-Jan-2019 11:30 [facility] Damaris TERRY, Sade Butt MD Planned Procedures EsophagramBy: Sade Ocampo MD On: 26-Sep-2018 Intent Sade Ocampo MD Comments: with a 12 mm tablet swallow Ultrasound - ThyroidBy: Damaris TERRY, On: 11-Sep-2018 Intent Sade Butt MD DEXA SCAN AXIAL SKELETON (49061)By: On: 06-Apr-2018 Intent Sade Ocampo MD, MD, Dana M MAMMOGRAM BREAST BILATERAL On: 16-Mar-2018 Intent SCREENING DIGITAL (15684)By: Sade Ocampo MD, MD, Dana M EKG (51142)By: Sade Ocampo MD On: 13-Feb-2018 Intent Sade Ocampo MD Radiology - Hand - RightBy: Damaris On: 29-Jan-2018 Intent Sade TERRY MD, Dana M Radiology - Hip - LeftBy: Damaris On: 12-May-2017 Intent Sade TERRY MD, Dana M Radiology - Lumbar SpineBy: Damaris On: 12-May-2017 Intent Sade TERRY MD, Dana M MAMMOGRAM BREAST BILATERAL On: 13-Mar-2017 Intent SCREENING DIGITAL (32838)By: Sade Ocampo MD, MD, Dana M Aerosol Treatment (23696)By: Bianca On: 20-Jan-2016 Intent Dora RG MAMMOGRAM, SCREENING, BOTH BREAST On: 02-Oct-2015 Intent (08898)By: Sade Ocampo MD, MD, Dana M Bone Density StudyBy: Damaris TERRY, On: 02-Oct-2015 Intent Sade Butt MD BILATERAL MAMMOGRAMS (94403)By: On: 21-Sep-2015 Intent Sade Ocampo MD, MD, Dana M Prevnar 13 (92075)By: Damaris TERRY, On: 17-Oct-2014 Intent Sade Butt MD BILATERAL MAMMOGRAMS (39335)By: On: 16-Sep-2014 Intent Sade Ocampo MD, MD, Dana M Breast Screening - BilateralBy: On: 16-Sep-2013 Intent Sade Ocampo MD, MD, Dana M Rocephon Injection, 1 Gm On: 20-Nov-2012 Intent (J0696)By: Sade Ocampo MD Comments: Lot #[id number]-bilateral hipsDose- 2 gramsgiven by: IFRAH Anderson MD, Dana M THER/PROPH/DIAG INJ, SC/IM On: 20-Nov-2012 Intent (56259)By: Damaris TERRY, Sade Ocampo MD, Sade Barbosa Eprescribed prescriptions On: 08-Nov-2012 Intent (G8553)By: Damaris TERRY, Sade Ocampo MD, Sade Barbosa PNEUM VAC ADLT/IMUMNOSPR, SBC/INTRM On: 15-Oct-2012 Intent (94169)By: Jacquelyn Steven LPN Comments: Lot: [id number]: [id number]: 0.5mlRoute: IMSite: L deltoidGiven by: IFRAH Suh IMMUNIZ ADMNIN, 1 VAC, SNGL/COMBO On: 15-Oct-2012 Intent (07830)By: Jacquelyn Steven LPN Breast Screening - BilateralBy: On: 08-Oct-2012 Intent Damaris TERRY, Sade Ocampo MD, Sade Barbosa IMMUNIZ ADMNIN, 1 VAC, SNGL/COMBO On: 08-Oct-2012 Intent (55713)By: Damaris TERRY, Sade Ocampo MD, Sade Barbosa PNEUM VAC ADLT/IMUMNOSPR, SBC/INTRM On: 08-Oct-2012 Intent (29828)By: Sade Ocampo MD, MD, Sade Barbosa IMMUNIZ ADMNIN, 1 VAC, SNGL/COMBO On: 08-Oct-2012 Intent (26125)By: DAVID Nina FLU VAC, SPLIT, >3 YEARS, INTRAMUSC On: 08-Oct-2012 Intent (85123)By: DAVID Nina MRI - Knee(s) - LeftBy: Donovan KIDD, On: 30-Dec-2011 Intent Alissa Garcia PHYSICAL THERAPY EVALUATION On: 30-Dec-2011 Intent (78316)By: Alissa Man CNP Doppler Ultrasound OtherBy: Donovan On: 30-Dec-2011 Intent Alissa KIDD Radiology - Knee - LeftBy: Donovan On: 30-Dec-2011 Intent Alissa KIDD Breast Screening - BilateralBy: On: 04-Aug-2011 Intent Sade Ocampo MD, MD, Sade M Eprescribed prescriptions On: 10-Jan-2011 Intent ([id number])By: Sade Ocampo MD, MD, Dana M EKG ([id number])By: DAVID Nina On: 12-Oct-2010 Intent MAMMOGRAM, SCREENING, BOTH BREASTS On: 20-Sep-2010 Intent ([id number])By: Haley Chaparro DO EKG ([id number])By: Sade Ocampo MD On: 17-Sep-2009 Intent Sade Ocampo MD MAMMOGRAM, SCREENING, BOTH BREASTS On: 17-Sep-2009 Intent ([id number])By: Sade Ocampo MD, MD, Dana M MAMMOGRAM, SCREENING, BOTH BREASTS On: 23-Sep-2008 Intent ([id number])By: Lara Iglesias Nuclear Stress Test/Stress On: 19-Oct-2007 Intent SPECT/TreadmillBy: Haley Chaparro DO EKG ([id number])By: Haley Chaparro DO On: 19-Oct-2007 Intent Comments: ekg showed normal sinus rhythym, normal axis, no acute st/t wave changes nsivcd Bio Z ([id number])By: Haley Chaparro DO On: 19-Oct-2007 Intent Comments: good paremeterss IMMUNIZ ADMNIN, 1 VAC, SNGL/COMBO On: 22-Aug-2007 Intent ([id number])By: Shruthi Louis LPN PNEUM VAC ADLT/IMUMNOSPR, SBC/INTRM On: 22-Aug-2007 Intent (52309)By: Shruthi Louis LPN Comments: lot # [id number] exp- 09/06 LDLT patient tolerated well Flu Vaccine, Split IM ([id number])By: On: 22-Aug-2007 Intent Shruthi Louis LPN Comments: lot #[id number] exp- 02/04 RDLT patient tolerated well SPECIMEN HNDLNG/TRNSPRT, OFFC > LAB On: 18-Jun-2007 Intent ([id number])By: NAYELI DIAMOND CNP Pulse Oximetry ([id number])By: Maico, On: 18-Jun-2007 Intent DAVID Radiology - Chest- PA and LatBy: On: 09-Feb-2007 Intent Lacey Sherman DO Aerosol Treatment ([id number])By: Lane On: 09-Feb-2007 Intent Lacey SALAZAR Comments: [...] glutealGiven by: Magalys Michael LPN Inhaler Demo ([id number])By: DARA KIDD, On: 07-Feb-2007 Intent NAYELI Aerosol Treatment ([id number])By: DARA On: 07-Feb-2007 Intent NAYELI KIDD Comments: moderate improvement after treatment--still tons of wheezing diffuse inspir and exp IMMUNIZ ADMNIN, 1 VAC, SNGL/COMBO On: 13-Oct-2006 Intent ([id number])By: Sade Ocampo MD, MD, Dana M FLU VAC, SPLIT, >3 YEARS, INTRAMUSC On: 13-Oct-2006 Intent ([id number])By: Sade Ocampo MD, MD, Dana M MAMMOGRAM, SCREENING, BOTH BREASTS On: 13-Oct-2006 Intent ([id number])By: Sade Ocampo MD, MD, Dana M EKG ([id number])By: Sade Ocampo MD On: 13-Oct-2006 Intent Sade Ocampo MD Bio Z ([id number])By: Sade Ocampo MD On: 13-Oct-2006 Intent Sade [...] The patient does have durable power of city attorney and living will. The patient h as noticed nothing from the geriatic depression scale. Other providers contributing to the patient's care are kitchen worker, gastrologist (Dr. Pabon ) and other[facility]Encounter Diagnosis: Encounter for Medicare annual [...] Nutrition: balanced diet and supplemental vitamins. The or dical issues the patient is following up [...] [facility] End: 13-Sep-2006 7:17 [place] Harmeet garcia guarantor
--- OUTSIDE RECORDS SUMMARY | 2019-01-17 14:50 | XMS RPT_ITS | Continuity of Care Document ---
:1945 Author Organization [facility] Address [address] [facility] [address] [place] [address] Phone Care Team Providers Name Role Phone [...] annual wellness exam (Z00.00, V70.0) Comments: [facility] colonoscopy 6-17 3 polyps [...] {Tablet} Refills: 0 Ordered:28-Sep-2018 Damaris TERRY, Sade Olson MD, Sade Barbosa Start : 28-Sep-2018 Active Losartan Potassium-HCTZ 100-25 MG Oral Tablet 1 (one) Tablet qd for 0 days Quantity: 60 {Tablet} Refills: 6 Ordered:24-Sep-2018 Damaris TERRY, Sade Vasqeuz MD Start : 24-Sep-2018 Active Pantoprazole Sodium [...] : 07-Sep-2012 End : 01-Oct-2012 Inactive Comments:LEONARDO LINDA HCT, 80-12.5MG (Oral Tablet) 1 Tablet qd [...] : 06-Nov-2008 End : 30-Mar-2009 Inactive NYSTATIN, 000595NTFK/GM (External Powder) uad Powder bid to affected [...] Refills: 6 Ordered:10-Jan-2011 Sade Ocampo MD, MD, Sade Barbosa Start : 10-Jan-2011 End : 10-Jan-2011 Discontinued ASPIRIN, 81MG (Oral Tablet) 1 qd for 0 days Refills: 0 Ordered:13-Feb-2018 DAVID Nina End : 13-Feb-2018 Discontinued Comments:This order discontinued per [facility]. DIOVAN, 80MG (Oral Tablet) 1 (one) Tablet qd for 0 days Quantity: 60 {Tablet} Refills: 6 Ordered:12-Oct-2010 Damaris TERRY, SadeSade Gibson MD Start : 12-Oct-2010 End : 12-Oct-2010 Discontinued [...] OF FACE WITHOUT INFECTION (910.0) Comments: warren leiHien fell at movie theater Status: Resolved as [...] 19-Mar-2009 Well woman exam (Z01.419, V72.31) Comments: [facility] BSO bd 2012 good. mamm 7-14 with [...] 19-Sep-2018 Thyroid Result: Comments: See Note; NOTES: [facility] Imaging Services [address] [place] [address] Thyroid MR#: [id number] Acct: [id number] Name: SACHIN SCHUSTER Rep #: [id number] : [birth year] F 72 From: Hugo Ventura MD PCP: Sade Ocampo MD Status: REG CLI Study: Thyroid Date of Exam: 09/19/18 Exam# [id number] Ordering Dr: Sade Ocampo MD STUDY: THYROID [...] MD at 9:15 EST , Service support [phone], CC: Sade Ocampo MD Culinary Director: Signed 24-May-2018 Chest PA and Lateral Result: Comments: See Note; NOTES: [facility] Imaging Services [address] [place] [address] Chest PA and Lateral MR#: [id number] Acct: [id number] Name: SACHIN SCHUSTER Rep #: [id number] : 1945 F 72 From: Jose Elias Campbell MD PCP: Sade Ocampo MD Status: REG CLI Study: Chest PA and Lateral Date of Exam: 05/24/18 Exam# [id number] Ordering Dr: Teodoro Sanchez MD STUDY: X-RAY [facility] REASON FOR EXAM: Female, 72 years [...] CC: Sade Ocampo MD; Teodoro Sanchez MD Culinary Director: Signed 30-Apr-2018 PET/CT Tumor Base -Thigh Init Result: Comments: See Note; NOTES: [facility] Imaging Services [address] [place] [address] PET/CT Tumor Base -Thigh Init MR#: [id number] Acct: [id number] Name: SACHIN SCHUSTER Rep # : [id number] : 1945 F 72 From: Walter Monzon DO PCP: Sade Ocampo MD Status: REG CLI Study: PET/CT Tumor Base -Thigh Init Date of Exam: 04/30/18 Exam# [id number] Ordering Dr: Sade Ocampo MD EXAMINATION: FDG [...] ([place] et al, Clinical Nuclear Medicine 29:93, 2004). Electronic Signature Prerna Chanel emy Signed: Walter Monzon DO at 23:12 EDT Tel , Service support , CC: Sade Ocampo MD Culinary Director: Signed 24-Apr-2018 Dexa Bone Density Study Result: Comments: See Note; NOTES: [facility] Imaging Services [address] [place] [address] Dexa Bone Density Study MR#: [id number] Acct: [id number] Name: SACHIN SCHUSTER Rep #: [id number] : 1945 F 72 From: Mikey Pierre MD PCP: Sade Ocampo MD Status: REG CLI Study: Dexa Bone Density Study Date of Exam: 04/24/18 Exam# [id number] Ordering Dr: Sade Ocampo MD STUDY: DUAL [...] Mikey Pierre MD at 14:05 EDT Tel [phone], Service support , CC: Sade Ocampo MD Culinary Director: Signed 19-Apr-2018 Downtime Report Result: Comments: See Note; NOTES: [facility] Medical Records Department [address] [place] [address] Downtime Report MR#: [id number] Acct: [id number] Name: SACHIN SCHUSTER Rep #: [id number] : 1945 72 From: Donte De Jesus PCP: Damaris TERRY,Sade Status: REG CLI This patient was seen during an EMR downtime April 02, 2018 - April 09, 2018. This patient may have a combination of p aper and electronic documentation or all paper documentation. All documentation is viewable within the e-chart portion of [employer] for each patient visit. 17-Apr-[address] w/CCTA Result: Comments: See Note; NOTES: [facility] Imaging Services [address] [place] [address] w/CCTA MR#: [id number] Acct: [id number] Name: SACHIN SCHUSTER Rep #: [id number] : 1945 F 72 From: Mikey Pierre MD PCP: Sade Ocampo MD Status: REG CLI Study: Limited Chest CT w/CCTA Date of Exam: 04/17/18 Exam# [id number] Ordering Dr: Sade Ocampo MD STUDY: CT [...] Mikey Pierre MD at 15:38 EDT Tel [phone], Service support , CC: Sade Ocampo MD Culinary Director: Signed 09-Apr-2018 SCREENING MAMM (CAD), BILAT Result: Comments: See Note; NOTES: [facility] Imaging Services [address] [place] [address] SCREENING MAMM (CAD), BILAT MR#: [id number] Acct: [id number] Name: SACHIN SCHUSTER Rep #: [id number] : 1945 F 72 From: Valentín Gross MD PCP: Sade Ocampo MD Status: REG CLI Study: SCREENING MAMM (CAD), BILAT Date of Exam: 04/09/18 Exam# [id number] Ordering Dr: Sade Ocampo MD MAMM OGRAPHY [...] delay biopsy of a clinically suspicious abnormality. [id number] Electronically Signed: Valentín Gross MD at 14:15 EDT Tel , Service support [phone], CC: Sade Ocampo MD Culinary Director: Signed 30-Jan-2018 Hand Min 3 Views Result: Comments: See Note; NOTES: [facility] Imaging Services [address] [place] [address] Hand Min 3 Views MR#: [id number] Acct: [id number] Name: SACHIN SCHUSTER Rep #: [id number] D OB: 1945 F 72 From: Fernando Oliva DO PCP: Sade Ocampo MD Status: REG CLI Study: Hand Min 3 Views Date of Exam: 01/30/18 Exam# [id number] Ordering Dr: Sade Ocampo MD STUDY: X-RAY [...] Service support , CC: Sade Ocampo MD Culinary Director: Signed 18-Dec-2017 Urgent Care Visit Report Result: Comments: See Note; NOTES: [address] [place] [address] OFFICE VISIT Date of Service: 12/18/17 MR#: [id number] Acct: [id number] Name: SACHIN SCHUSTER Re p #: [id number] : 1945 Provider: Kyle JIMENEZ Age/Sex: 72/F Location: [facility] Status: Signed Intake Vital Signs12/18/17 Height 5 ft 2 in 12/18/17 Weight: 170 lb 8 oz Intake Visit 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 This note was generated with [employer] software. It may contain incorrect words, [...] with Pelvis Result: Comments: See Note; NOTES: [facility] Imaging Services [address] [place] [address] Verdana 4d Hip 2-3 Views with Pelvis MR#: [id number] Acct: [id number] Name: SACHIN SCHUSTER Rep #: [id number] : 1945 F 71 From: Mikey Pierre MD PCP: Sade Ocampo MD Status: REG CLI Study: Hip 2-3 Views with Pelvis Date of Exam: 05/12/17 Exam# [id number] Ordering Dr: Kodi Ocampo MD STUDY: X-RAY [...] Mikey Pierre MD at 12:44 EDT Tel [phone], Service support , CC: Sade Ocampo MD Culinary Director: Signed 12-May-2017 L/S Spine Min 4 Views Result: Comments: See Note; NOTES: [facility] Imaging Services [address] [place] [address] Verdana 4d L/S Spine Min 4 Views MR#: [id number] Acct: [id number] Name: LEAHSACHIN Rosana Gardner p #: [id number] : 1945 F 71 From: Mikey Pierre MD PCP: Sade Ocampo MD Status: REG CLI Study: L/S Spine Min 4 Views Date of Exam: 05/12/17 Exam# [id number] Ordering Dr: Sade Ocampo MD STUDY: X-RAY [...] Pierre MD a t 12:43 EDT Tel [phone], Service support , CC: Sade Ocampo MD Culinary Director: Signed 29-Mar-2017 Breast Limited Unilateral Result: Comments: See Note; NOTES: [facility] Imaging Services [address] [place] [address] [place] [address] 4d Breast Limited Unilateral MR#: [id number] Acct: [id number] Name: SACHIN SCHUSTER Rep #: [id number] : 1945 F 71 From: Mikey Pierre MD PCP: Sade Ocampo MD Status: REG CLI Study: Breast Limited Unilateral Date of Exam: 03/29/17 Exam# [id number] Ordering Dr: Kodi Ocampo MD STUDY: ULTRASOUND [...] Mikey Pierre MD at 15:51 EDT Tel [phone], Service support , CC: Sade Ocampo MD Culinary Director: Signed 22-Mar-2017 SCREENING MAMM (CAD), BILAT Result: Comments: See Note; NOTES: [facility] Imaging Services [address] [place] [address] Verdana 4d SCREENING MAMM (CAD), BILAT MR#: [id number] Acct: [id number] Name: HELLEN SCHUSTER Rep #: [id number] : 1945 F 71 From: Mikey Pierre MD PCP: Sade Ocampo MD Status: REG CLI Study: SCREENING MAMM (CAD), BILAT Date of Exam: 03/22/17 Exam# [id number] Ordering Dr: Sade Ocampo MD MAMMOGRAPHY - [...] delay biopsy of a clinically suspicious abnormality. [id number] Electronically Signed: Mikey Pierre MD at 8:05 EDT Tel [phone], Service support , CC: Sade Ocampo MD Culinary Director: Signed 21-Jun-2016 PT D/C Summary (1) Result: Comments: See Note; NOTES: [facility] Physical Therapy [facility] [address] [place] [address]. 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 Thank you for the referral of this patient. Sincerely, An carmel Cunningham <Electronically signed by Dora DODSON> 06/21/16 9689 CC: RADHA COTTRELL; Sade Ocampo MD; OUT OF TOWN DOCTOR Signed 25-May-2016 Re-Evaluation - PT (1) Result: Comments: See Note; NOTES: [facility] Physical [facility] [facility] [place], [place] [address] Fax REEVALUATION / ME DEMI RECERTIFICATION [place] 4d PHYSICAL THERAPY MR#: [id number] Acct: [id number] Name: SACHIN SCHUSTER Rosana Rep #: [id number] : 1945 70 From: Dora DODSON Referring DrHien: OUT OF TOWN DOCTOR Status: REG RCR Insurance: MEDICARE PART A B AETNA Out of [facility] Doctor, RADHA COTTRELL It has been my [...] do not hesitate to contact me at [phone] by phone or if you have questions or concerns regarding this new plan of care! Sincerely, Dora Cunningham <Electronically signed by Dora Cunningham MPT> 05/25/16 191 CC: RADHA COTTRELL; Sade Ocampo MD; OUT OF [facility] DOCTOR Signed For Medicare only, by signing this I certify the pl an of care. Physicians Signature Date 29-Apr-2016 Inital Evaluation (1) - PT Result: Comments: See Note; NOTES: [facility] Physical Therapy [facility] [address] [facility] [place], [place] [address] Fax REHABILITATION RVICES INITIAL EVALUATION MR#: [id number] Acct: [id number] Name: SACHIN SCHUSTER Rep #: [id number] : 1945 70 From: Dora Cunningham MPT Referring Dr.: OUT OF [facility] DOCTOR Status: REG RCR Insurance: MEDICARE PART A B AETNA Patient's Visit Information SACHIN SCHUSTER is a 70 year old F referred to Physical Therapy by Out [facility] Doctor RADHA COTTRELL with a diagnosis of Kevyn droplasty and medial menisectomy. Date of Evaluation: 04/29/16 Physical Therapist: Dora Cunningham - Visit Plan Frequency: 3x /Week Duration: 4 Weeks - Subjective Subjective: Pt likes to go by [place]any[place]. Pt reports that 3 weeks ago toaday pt had menisuc surgery. Pt reports that she has a lot of arthritis and suggested PT. She reports that her knee is still sore and stiff. Pt has trouble with s tanding for long periods of time and causes increase stiffness and pain. Pt has not tried stairs. Pt has been walking in the [place] or [place] the [place] to see her mom. Pt had trouble [...] to be FAXED BACK to us at [phone] for Medicare purposes. Please let me kn [...] Only (Routine) Result: Comments: See Note; NOTES: [facility] Imaging Services [address] [place] [address] Verdana 4d Lower Ext Joint Only (Routine) MR#: [id number] Acct: [id number] Na me: SACHIN SCHUSTER Rep #: [id number] : 1945 F 70 From: Hermann Inman MD PCP: Sade Ocampo MD Status: REG CLI Study: Lower Ext Joint Only (Routine) Date of Exam: 03/09/16 Exam# [id number] O jhoan Dr: Marck Armendariz STUDY: MRI [...] FACR at 8:04 EDT , Service support [phone], CC: MARCK ARMENDARIZ; Sade Ocampo MD Culinary Director: Signed 28-Oct-2015 Bilat Scrn Digital AND CAD Result: Comments: See Note; NOTES: [facility] Imaging Services [address] [place] [address] Verdana 4d Bilat Scrn Digital AND CAD MR#: [id number] Acct: [id number] Name: SACHIN SCHUSTER Rep #: [id number] : 1945 F 69 From: Jose Elias Campbell MD PCP: Sade Ocampo MD Status: REG CLI Study: Bilat Scrn Digital AND CAD Date of Exam: 10/28/15 Exam# [id number] Ordering Dr: Sade Ocampo MD MAMMOGRAPHY - [...] delay biopsy of a clinically suspicious abnormality. [id number] Electronically Betsy d: Elijah Campbell MD at 11:23 EST Tel , Service support [phone], CC: Sade Ocampo MD Culinary Director: Signed 28-Oct-2015 Dexa Bone Density Study (HP) Result: Comments: See Note; NOTES: [facility] Imaging Services [address] [place] [address] Verdana 4d Dexa Bone Density Study (HP) MR#: [id number] Acct: [id number] Name : SACHIN SCHUSTER Rep #: [id number] : 1945 F 69 From: Mikey Pierre MD PCP: Sade Ocampo MD Status: REG CLI Study: Dexa Bone Density Study (HP) Date of Exam: 10/28/15 Exam# [id number] Ella staples Dr: Sade Ocampo MD STUDY: [...] Mikey Pierre MD at 8:33 EST Tel [phone], Service support [phone], CC: Sade Ocampo MD Culinary Director: Signed 27-Oct-2014 Bilat Scrn Digital AND CAD Result: Comments: See Note; NOTES: [facility] Imaging Services [address] [place] [address] Breast Imaging Report MR#: [id number] Acct: [id number] Name: Leigh Ann SCHUSTER Rep #: [id number] : 1945 F 68 From: Jose Elias Campbell MD PCP: Sade Ocampo MD Status: REG CLI Study: Bilat Scrn Digital AND CAD Date of Exam: 10/27/14 Exam# [id number] Ordering Dr: Sade Ocampo MD MAMM OGRAPHY [...] Elijah Campbell MD at 14:42 EST Tel [phone], Service supp ort [phone], CC: Sade Ocampo MD Culinary Director: Signed 17-Oct-2014 EKG (58467) Comments: see scanned document of test done to see results reviewed today with patient Result: [MEASUREMENTS ANALYSIS] Date of Test: 10/17/2014 10:58:06; Heart Rate: 77; NE Interval: 142; QRS: 96; QT Interval: 382; Corrected QT Interval (QTc): 411; P [place]: 43; QRS [place]: 10; T [place]: -1; Blood Pressure: 120/80 [ECG DIAGNOSTIC STATEMENTS] Date of Test: 10/17/2014 10:58:06; Summary: Sinus Rhythm WITHIN NORMAL LIMITS 21-May-2014 Breast Unilateral Result: Comments: See Note; NOTES: [facility] Imaging Services [address] [place] [address] Ultrasound Report MR#: [id number] Acct: [id number] Name: Leigh Ann SCHUSTER Rep #: [id number] : 1945 F 68 From: Valentín Gross MD PCP: Sade Ocampo MD Status: REG CLI Study: Breast Unilateral Date of Exam: 05/21/14 Exam# [id number] Ordering Dr: Teodoro Humphries MD STUDY: ULTRAS [...] at 17:35 EDT Tel , Service support [phone], CC: Sade Ocampo MD; Teodoro Humphries MD Culinary Director: Signed 25-Feb-2014 Upper Ext Joint Only(Routine) Result: Comments: See Note; NOTES: [facility] Imaging Services [address] [place] [address] MRI Report MR#: [id number] Acct: [id number] Name: Leigh Ann SCHUSTER Rep #: [id number] : 1945 F 68 From: Hossein Mtaos MD PCP: Sade Ocampo MD Status: REG CLI Study: Upper Ext Joint Only(Routine) Date of Exam: 02/25/14 Exam# [id number] Ordering Dr: Christian Beard DO STUDY: MRI [...] MD at 11:58 EDT , Service support [phone], CC: Sade Ocampo MD; Christian Beard Culinary Director: Signed 14-Feb-2014 Shoulder min 2 Views Result: Comments: See Note; NOTES: [facility] Imaging Services [address] [place] [address] Radiology Report MR#: [id number] Acct: [id number] Name: Leigh Ann SCHUSTER Rep #: [id number] : 1945 F 68 From: Mikey Pierre MD PCP: Sade Ocampo MD Status: REG CLI Study: Shoulder min 2 Views Date of Exam: 02/14/14 Exam# [id number] Ordering Dr: Christian Beard DO STUDY: X [...] Mikey Pierre MD at 14:06 EDT Tel [phone], Service support [phone], 0055 RAD/Shoulder min 2 Views IMPRESSION: Degenerative changes of the acromioclavicular joint. Electronically Signed: Mikey iPerre MD at 14:06 EDT Tel [phone], Service support [phone], CC : Sade Ocampo MD; Christian Beard Culinary Director: Signed 16-Oct-2013 Breast Unilateral Result: Comments: See Note; NOTES: [facility] Imaging Services [address] [place] [address] Ultrasound Report MR#: [id number] Acct: [id number] Name: Leigh Ann SCHUSTER Rep #: [id number] : 1945 F 67 From: Mikey Pierre MD PCP: Sade Ocampo MD Status: REG CLI Study: Breast Unilateral Date of Exam: 10/16/13 Exam# [id number] Ordering Dr: Sade Ocampo MD STUDY: ULT [...] - Biopsy Should Be Considered. Electronically Signed: iMkey Pierre M.D. at 16:45 EST , Service support [phone], CC: Sade Ocampo MD Culinary Director: Signed 11-Oct-2013 Bilat Scrn Digital & CAD Result: Comments: See Note; NOTES: [facility] Imaging Services [address] [place] [address] Breast Imaging Report MR#: [id number] Acct: [id number] Name: Leigh Ann SCHUSTER Rep #: [id number] : 1945 F 67 From: Mikey Pierre MD PCP: Sade Ocampo MD Status: REG CLI Exam# [id number] Ordering Dr: Sade Ocampo MD MAMMOGRAPHY - [...] M.D. at 15:33 EST , Service support [phone], CC: Sade Ocampo MD Culinary Director: Signed Immunization Name Dates Details Influenza (3 years and up) on: 13-Oct-2006 Influenza (3 years and up) on: 22-Aug-2007 Comments: lot #[id number] exp- 02/04 RDLT patient tolerated well Pneumococcal [...] Lives with spouse. Comments: , Cheondoism andimportant DPSHAMEKA schuster [phone] Status: Active No Caffeine Use Status: Active [...] kg/m2 Body Surface Area Calculated 1.78 m2 57-Syo-626886:30 Comments: 130/70's at home Temperature 97.9 f [...] 84 /min Comments: Pattern: Regular Respiration Rate 58181 /min Comments: Pattern: Unlabored O2 SAT 98 [...] Description Value Details :55 Anti TPO Antibody (27049) Comments: PATIENT NOT FASTINGPERFORMED BY: [employer] [facility] [id number] Thyroid Peroxidase (TPO) Ab 21 {IU/mL} (Normal) Range: 0-34 :55 TSH (38698) Comments: PATIENT NOT FASTINGPERFORMED BY: [employer] [facility] [id number] TSH 0.967 {uIU/mL} (Normal) Range: 0.450-4.500 :55 T4, FREE (THYROXINE) (10960) Comments: PATIENT NOT FASTINGPERFORMED BY: [employer] Nvcceu4927 [facility] [id number] T4,Free(Direct) 1.50 ng/dL (Normal) Range: 0.82-1.77 :55 T3, FREE (TRIDOTHYRONINE) (52333) Comments: PATIENT NOT FASTINGPERFORMED BY: [employer] Rquiao6604 [facility] [id number] Triiodothyronine (T3), Free 3.3 pg/mL (Normal) Range: 2.0-4.4 :52 Rapid Strep Test, Office (97118) Rapid Strep Test, Office Negative (Normal) :51 FLU A+B DIRECT AG, (RAPID) (66055) FLU A+B DIRECT AG, (RAPID) negative (Normal) :09 LDL, Direct Comments: Comments: [facility] (refer to report for specific site)refer to report for address and phone number; 18 db COMMENT Test not performed (Normal) LDL,DIR 635659 147 mg/dL (Abnormal) Range: 0-99 Comments: Performed at: [facility] [employer] [id number] Director: Steve Carey PhD, Phone: [phone] 0-Jol-141513:09 Triglycerides Comments: Comments: [facility] [address] [place], [address] TRIG 117 mg/dL (Normal) Comments: The drugs N-Acetylcysteine and Metamizole may falselydepress this assay.Serum Triglycerides Reference Interval Normal <150 mg/dL Borderline high 150 - 199 mg/dL High 200 - 499 mg/dL Very High > or = 500 mg/dL 22-Swr-739374:27 Carcinoembryonic Antigen Comments: [facility] (refer to report for specific site)refer to report for address and phone number CEA 1.4 ng/mL (Normal) Range: 0.0-4.7 Comments: CDC Software ECLIA methodology Nonsmokers <3.9 Smokers <5.6Performed at: [facility] [address] [id number] Director: Steve Carey PhD, Phone: [phone] 50-Ejy-476880:27 CRP Comments: [facility] [address] [place], [address] C-REACTIVE PROT 5.31 mg/L (Abnormal) Range: 0.0-3.0 Comments: C-Reactive Protein (CRP) provides useful information for thediagnosis, therapy and monitoring of inflammatory processesand associated diseases. For the evaluation of Relative Riskfor Cardiovascular Dise ase, a High Sensitivity CRP (HSCRP)should be ordered. 55-Lmc-862754:27 Erythrocyte Sed Rate Comments: [facility] [address] [place], [address] SED RATE 3 mm/h (Normal) Range: 0-30 91-Utr-487130:27 URINE HISTOPLASMA ANTIGEN Comments: [facility] (refer to report for specific site)refer to report for address and phone number UR Comments: TEST RESULT LIMITSHistoplasma Jeff Ag Ur <0.5 <0.5 ng/mLDisclaimer: This test was developed and its performance characteristics determined by [facility] (Normal). It has not been cleared or approved by the Food and Drug Administration. TESTING PERFORMED AT [facility]. ORIGINAL REPORT ON FILE IN LAB AG CONTAINS ADDITIONAL TEST SITE INFORMATION. 8-Vjf-402337:26 Metabolic Panel, Basic (57185) Comments: PATIENT NOT FASTINGPERFORMED BY: [employer] Pfgxlu3458 [facility] [id number] Calcium 10.0 mg/dL (Normal) Range: 8.7-10.3 Carbon [...] 8-27 Glucose 113 mg/dL (Abnormal) Range: 65-99 19-Hbf-956504:23 Metabolic Panel, Comprehensive Comments: PATIENT NOT FASTINGPERFORMED BY: [employer] Hptywi9171 [facility] [id number] (81198) ALT (SGPT) 23 [iU]/L (Normal) Range: 0-32 [...] 8-27 Glucose 94 mg/dL (Normal) Range: 65-99 12-Wif-797561:23 CBC WITH MANUAL DIFF Comments: PATIENT NOT FASTINGPERFORMED BY: [facility]Saint [facility] TownshipGckoir2387 [facility] [id number] Information: NURSE DRAW; fu DB 6-8 (21660) Immature Grans (Abs) 0.0 {x10E3/uL} (Normal) Range: [...] 3.77-5.28 WBC 3.2 {x10E3/uL} (Abnormal) Range: 3.4-10.8 32-Yqv-864626:23 MICROALBUMIN: CREATININE RATIO Comments: PATIENT NOT FASTINGPERFORMED BY: [facility] TechnologiesSaint [facility] Boonton TownshipWqkvmd6245 [facility] [id number] (17043) AND (69238) Alb/Creat Ratio 5.3 {mg/g_creat} (Normal) Range: 0.0-30.0 Albumin, Urine 3.7 ug/mL (Normal) Creatinine, Urine 70.0 mg/dL (Normal) 75-Gbu-239091:23 URINALYSIS (15833) Comments: PATIENT NOT FASTINGPERFORMED BY: in[facility] TechnologiesSaint [facility] Boont[facility] TownshipWacklc0936 [facility] [id number] Microscopic Examination MICNIP (Normal) Comments: Microscopic not indicated and not performed. Nitrite, Urine Negative (Normal) Urobilinogen,Semi-Qn 0.2 mg/dL (Normal) Range: 0.2-1.0 Bilirubin Negative (Normal) Occult Blood Negative (Normal) Ketones Negative (Normal) Glucose Negative (Normal) Protein Negative (Normal) WBC Esterase Negative (Normal) Appearance Clear (Normal) Urine-Color Yellow (Normal) pH 6.5 (Normal) Range: 5.0-7.5 Specific Magness 1.018 (Normal) Range: 1.005-1.030 03-Jno-888646:30 Culture, R/O Strep A Comments: [facility] [address] [place], [place], [address] CUSTREPA See Note (Normal) Comments: AVERY CultureNo Group A Beta Streptococcus isolated. * This cultures intended use is to screen for Beta Streptococcus A only. All other pathogens and potential pathogens will not be screened for or rep orted. If a complete workup of all potential pathogens is indicated an order for a routine throat culture is required. 3-Tqs-566181:10 ANTINUCLEAR ANTIBODIES DIRECT Comments: [facility] (refer to report for specific site)refer to report for address and phone number MILTON-DIRECT Negative (Normal) Comments: Performed at: [facility] [employer] [id number] Director: Steve Carey PhD, Phone: [phone] 2-Ubh-226555:10 Ferritin Comments: [facility] [address] [place], [place], [id number] FERRITIN 251 ng/mL (Normal) Range: 8-252 63-Jgy-010251:40 Methymalonic Acid, Serum Comments: today; PATIENT NOT FASTINGPERFORMED BY: [employer] [address] [id number] BY: Co[facility] SystemsSaint Clare's Hospital at Boonton TownshipGipkpm[address] [place] [address] [id number] (95846) Methylmalonic Acid, Serum 198 nmol/L (Normal) Range: 0-378 28-Awo-465950:40 Vitamin B-12 Comments: today; PATIENT NOT FASTINGPERFORMED BY: [employer] [id number] BY: Co[facility] SystemsSaint Clare's Hospital at Boonton TownshipHdzwue03[address] [place] [address] [id number] (cyanocobalamin) (03087) Vitamin B12 353 pg/mL (Normal) Range: 211-946 70-Hmi-840711:23 HEPATITIS C ANTIBODY Comments: PATIENT NOT FASTINGPERFORMED BY: Co[facility] SystemsSaint [facility] Hospital at Boont[facility] TownshipBrhadm[address] [place] [address] [id number] Information: NURSE DRAW (68891) Hep C Virus Ab <0.1 {s/co_ratio} (Normal) Range: 0.0-0.9 Comments: Negative: < 0.8 Indeterminate: 0.8 - 0.9 Positive: > 0.9 . The CDC recommends that a positive HCV antibody result be followed up with a HCV Nucleic Acid Amplification test (594595). :57 Alanine Aminotransferas (SGPT) Comments: DR.CHARLICK VERDIN.[facility] [address] [place], [address] ALT 32 U/L (Normal) Range: 12-78 :57 ALB/GLOB Ratio Comments: DR.CHARLICK VERDIN.[facility] [address] [place], [address] A/G 1.2 {RATIO} (Normal) Range: 0.9-2.4 :57 Albumin, Serum Comments: DR.CHARLICK VERDIN.[facility] [address] [place], [address] ALB 3.7 g/dL (Normal) Range: 3.4-5.0 :57 Alkaline Phosphatase Comments: DR.CHARLICK VERDIN.[facility] Ysr[address] [place], [address] ALK P 93 U/L (Normal) Range: 50-136 :57 AST(SGOT) Comments: DR.CHARLICK VERDIN.[facility] [address] [place], [address] AST 22 U/L (Normal) Range: 15-37 :57 Basic Metabolic Profile (BMP) Comments: DR.CHARLICK VERDIN.[facility] [address] [place], [address] GAP 8 (Normal) Range: 5-15 CO2 26.0 [...] Range: 70-110 :57 Bilirubin, Total Comments: DR.CHARLICK VERDIN.[facility] [address]hup18[address] [place], [place], [id number] T BILI 0.50 mg/dL (Normal) Range: 0.20-1.00 :57 Globulin Comments: DR.CHARLICK VERDIN.[facility] Kwj[address]ubxcr0072 [place], [place], [phone] GLOB 3.1 g/dL (Normal) Range: 2.3-3.5 :57 Lipid Profile Comments: DR.CHARLICK VERDIN.[facility] Wikzqehvjp1179 [place], [place], [address](323) VLDL 17 mg/dL (Normal) Range: 5-40 LDL [...] High Risk :57 Protein, Total Comments: DR.CHARLICK VERDIN.[facility] [address] [place], [address] T PROT 6.8 g/dL (Normal) Range: 6.4-8.2 :57 Thyroid Stim Hormone (TSH) Comments: DR.CHARLICK VREDIN.[facility] Zhmyzzqjxz6238 [facility] [place], [address] TSH 1.36 {uIU/mL} (Normal) Range: 0.358-3.74 53-Sdg-031601:40 Rapid Flu (65045 x 2) Comments: neg Influenza A Ag negative (Normal) :47 CBC W/Diff, Automated Comments: [facility] [address] [place], [place], [id number] ; apt. [address]-3-15 Absolute Lymph 1.25 {X10_3/ul} [...] 4.2-5.4 WBC 3.5 K/mm3 (Abnormal) Range: 4.4-11.0 89-The-60344:47 Comprehensive Metabolic Profil Comments: [facility] [address] [place], [place], [address] GAP 9 (Normal) Range: 5-15 CO2 25.0 [...] 70-110 :47 Lipid Profile Comments: [facility] [address] [place], [address] VLDL 28 mg/dL (Normal) Range: 5-40 LDL [...] Thyroid Stim Hormone (TSH) Comments: [facility] Zpilqbhlzx4732 [facility] [address]. [place], [address] TSH 1.13 {uIU/mL} (Normal) Range: 0.358-3.74 :47 Vitamin D,25 Hydroxy Comments: [facility] Bomvupiucm8936 [facility] [address]. [place], [address] Vitamin D 25-OH 41.2 ng/mL (Normal) Comments: Vitamin D 25(OH) Status Range Deficiency <20 ng/mL (50nmol/L) Insuffciency 20 - 30 ng/mL (50 - 75 nmol/L) Sufficiency 30 - 100 ng/mL (75 - 250 nmol/L) Toxicity >100 ng/mL (>250 nmol/L) 7-Zdu-010474:53 URINALYSIS (75279) Comments: PATIENT NOT FASTINGPERFORMED BY: [facility] [address] [place] [id number] Information: [id number] Microscopic Examination MICNIP (Normal) Comments: Microscopic not indicated and not performed. Nitrite, Urine Negative (Normal) Urobilinogen,Semi-Qn 0.2 mg/dL (Normal) Range: 0.0-1.9 Bilirubin Negative (Normal) Occult Blood Negative (Normal) Ketones Negative (Normal) Glucose Negative (Normal) Protein Negative (Normal) WBC Esterase Negative (Normal) Appearance Clear (Normal) Urine-Color Yellow (Normal) pH 7.5 (Normal) Range: 5.0-7.5 Specific Magness 1.015 (Normal) Range: 1.005-1.030 8-Lgc-329061:53 URINE LIBBY CULTURE-IDENTIFICATN Comments: PATIENT NOT FASTINGPERFORMED BY: [facility] Olbycf7293 [address] RoadDublin [place] [id number] ([id number]) Result 1 NG36 (Normal) Comments: No growth in 36 - 48 hours. Urine Culture,Comprehensive Final report (Normal) :22 CBC W/Diff, Automated Comments: Test performed at:[facility] [address] [place] [address] Absolute Lymph 1.45 {X10_3/ul} (Normal) Range: 0.83-4.51 [...] Metabolic Profil Comments: Test performed at:[facility] [address] [place] [address] GAP 6 (Normal) Range: 5-15 [...] Lipid Profile Comments: Test performed at:[facility] [address] [place] [address] VLDL 27 mg/dL (Normal) Range: [...] Ratio,Random UR Comments: Test performed at:[facility] Llpmnatvtq7021 [facility] [address] [place], [place] [address] MALB:CREAT 7.1 {mg/g_CRE} (Normal) MICROALBUMIN,UR 18.2 mg/L (Normal) UR CREAT 256.0 mg/dL (Normal) :22 Urinalysis, Complete Comments: How was Urine Obtained? CLEAN CATCHTest performed at:[facility] Qmwtjzlujm9777 [facility] [place], [place] [address] CA OX CRYSTAL 1+ {/hpf} (Normal) MUCUS, [...] :22 Vitamin D,25 Hydroxy Comments: Test performed at:[facility] Noagffwiyw9685 [facility] [place] [address] Vitamin D 25-OH 44.6 ng/mL (Normal) Comments: [...] 7-18 GLU 94 mg/dL (Normal) Range: 70-110 97-Gha-382312:55 UA Comments: How was Urine Obtained? CLEAN CATCH ANA 100 /ul (Abnormal) UOB 10 /ul (Abnormal) PRATEEK Negative (Normal) UROBU Normal mg/dL (Normal) VASQUEZ 6.0 (Normal) Range: 5.0 - 8.0 uPROTU Negative mg/dL (Normal) SGU 1.020 (Normal) Range: 1.002-1.030 KETU Negative mg/dL (Normal) BILIU Negative mg/dL (Normal) GLUR Normal mg/dL (Normal) UCLAR Clear (Normal) UCOL Yellow (Normal) 81-Qvl-890582:23 Microscopic Examination Comments: PATIENT WAS FASTINGPERFORMED BY: LabCoSaint [facility] Hospital [facility] Bo[facility] TownshipMszyuz3547 [facility] [id number] Bacteria None seen (Normal) Mucus Threads Present (Normal) Epithelial Cells (non renal) 0-10 {/hpf} (Normal) Range: 0 - 10 RBC None seen {/hpf} (Normal) Range: 0 - 3 WBC 0-5 {/hpf} (Normal) Range: 0 - 5 73-Wwb-180913:51 BILAT SCRN DIGITAL & CAD Radiology Report [...] Pierre M.D.October 09, 2012 at 12:29:05 PM [id number] Signed GP/GP If you are the referring physician and would like to consult with theradiologist who provided this interpretation, please contact Santos Chatterjee at [phone]. If this radiologist is unavailable, youwill be directed to another radiologi st to assist. If you are a patient with a question regarding this report, pleasecontactyour referring physician directly. Professional Interpretation Provided By: [employer], Phone ,Fax These documents contain legally protected [...] 1235 Si gn by: Mikey Pierre MD 46-Aqb-780937:23 URINALYSIS, W/ MICRO (89879) Comments: PATIENT WAS FASTINGPERFORMED BY: CloudBlue TechnologiesVid[facility]ung[facility] Hospital [id number] Microscopic Examination See below: (Normal) Microscopic Examination MICRON (Normal) Comments: Microscopic follows if indicated. Nitrite, Urine Negative (Normal) Urobilinogen,Semi-Qn 1.0 mg/dL (Normal) Range: 0.0-1.9 Bilirubin Negative (Normal) Occult Blood Negative (Normal) Ketones Negative (Normal) Glucose Negative (Normal) Protein Negative (Normal) WBC Esterase Negative (Normal) Appearance Clear (Normal) Urine-Color Yellow (Normal) pH 7.5 (Normal) Range: 5.0-7.5 Specific Magness 1.021 (Normal) Range: 1.005-1.030 46-Qry-624582:23 MICROALBUMIN: CREATININE RATIO Comments: PATIENT WAS FASTINGPERFORMED BY: [employer] CesarUniversity [facility] Medical CenterSponduuVidant Pungo Hospital [id number] (68110) AND (67628) Microalb/Creat Ratio 3.0 {mg/g_creat} (Normal) Range: 0.0-30.0 Microalbumin, Urine 2.5 ug/mL (Normal) Range: 0.0-17.0 Creatinine, Urine 82.1 mg/dL (Normal) Range: 15.0-278.0 45-Opk-566792:23 METABOLIC PANEL, COMPREHENSIVE Comments: PATIENT WAS FASTINGPERFORMED BY: [employer]70 CanvaceVidant P[facility] Hospital [id number] (55882) ALT (SGPT) 29 [iU]/L (Normal) Range: 0-32 [...] Glucose, Serum 93 mg/dL (Normal) Range: 65-99 71-Bmd-397494:23 LIPID PANEL (96231) Comments: PATIENT WAS FASTINGPERFORMED BY: [employer] [facility] [id number] LDL/HDL Ratio 3.0 {ratio_units} (Normal) Range: 0.0-3.2 LDL Cholesterol Calc 145 mg/dL (Abnormal) Range: 0-99 HDL Cholesterol 49 mg/dL (Normal) Comments: According to ATP-III Guidelines, HDL-C >59 mg/dL is considered anegative risk factor for CHD. VLDL Cholesterol Brayden 22 mg/dL (Normal) Range: 5-40 Triglycerides 110 mg/dL (Normal) Range: 0-149 Cholesterol, Total 216 mg/dL (Abnormal) Range: 100-199 62-Wyg-972094:23 CBC WITH MANUAL DIFF Comments: PATIENT WAS FASTINGPERFORMED BY: [employer]6370 [facility] [id number] Information: [id number] (66775) Immature Grans (Abs) 0.0 {x10E3/uL} (Normal) Range: [...] 3.77-5.28 WBC 3.6 {x10E3/uL} (Abnormal) Range: 4.0-10.5 1-Hgq-106107:23 KNEE,4 OR MORE VIEWS Radiology Report See [...] radiologist regarding this report, please call our 22D8aecoeco line @ Dictated on 12/30/11 1234 by WALTER KAY MDTranscribed on 12/30/111654 by ITS IMPORTSign by WALTER KAY MD on 12/30/111655 Sign by: WALTER KAY MD 70-Lpw-373314:59 Microscopic Examination Comments: PATIENT WAS FASTINGPERFORMED BY: CloudBlue TechnologiesVid[facility] P[facility] Hospital [id number] Bacteria None seen (Normal) Mucus Threads Present (Normal) Epithelial Cells (non renal) 0-10 {/hpf} (Normal) Range: 0 - 10 RBC 0-3 {/hpf} (Normal) Range: 0 - 3 WBC 0-5 {/hpf} (Normal) Range: 0 - 5 18-Byw-213451:59 URINALYSIS, W/ MICRO (77712) Comments: PATIENT WAS FASTINGPERFORMED BY: CloudBlue TechnologiesVid[facility] [id number] Microscopic Examination See below: (Normal) Microscopic Examination MICRON (Normal) Comments: Microscopic follows if indicated. Nitrite, Urine Negative (Normal) Urobilinogen,Semi-Qn 0.2 mg/dL (Normal) Range: 0.0-1.9 Bilirubin Negative (Normal) Occult Blood Negative (Normal) Ketones Negative (Normal) Glucose Negative (Normal) Protein Negative (Normal) WBC Esterase Negative (Normal) Appearance Clear (Normal) Urine-Color Yellow (Normal) pH 6.0 (Normal) Range: 5.0-7.5 Specific Magness 1.018 (Normal) Range: 1.005-1.030 70-Tfh-171238:59 MICROALBUMIN: CREATININE RATIO Comments: PATIENT WAS FASTINGPERFORMED BY: CloudBlue TechnologiesV[facility] [id number] (83189) AND (61618) Microalb/Creat Ratio 4.3 {mg/g_creat} (Normal) Range: 0.0-30.0 Creatinine, Urine 98.4 mg/dL (Normal) Range: 15.0-278.0 Microalbumin, Urine 4.2 ug/mL (Normal) Range: 0.0-17.0 65-Ixu-902097:59 METABOLIC PANEL, COMPREHENSIVE Comments: PATIENT WAS FASTINGPERFORMED BY: [facility] Ivqewd4635 [facility] [id number] (23252) ALT (SGPT) 29 [iU]/L (Normal) Range: 0-40 [...] mg/dL (Normal) Range: 65-99 :59 LIPID PANEL (56782) Comments: PATIENT WAS FASTINGPERFORMED BY: [employer]6370 [facility] [id number] LDL/HDL Ratio 3.0 {ratio_units} (Normal) Range: 0.0-3.2 LDL Cholesterol Calc 146 mg/dL (Abnormal) Range: 0-99 VLDL Cholesterol Brayden 20 mg/dL (Normal) Range: 5-40 HDL Cholesterol 48 mg/dL (Normal) Comments: According to ATP-III Guidelines, HDL-C >59 mg/dL is considered anegative risk factor for CHD. Cholesterol, Total 214 mg/dL (Abnormal) Range: 100-199 Triglycerides 102 mg/dL (Normal) Range: 0-149 :59 CBC WITH MANUAL DIFF (00519) Comments: PATIENT WAS FASTINGPERFORMED BY: [employer]6370 [facility] [id number] Immature Grans (Abs) 0.0 {x10E3/uL} (Normal) Range: [...] 3.80-5.10 WBC 3.7 {x10E3/uL} (Abnormal) Range: 4.0-10.5 5-Fnf-857657:15 BILAT SCRN DIGITAL & CAD Radiology Report [...] y suspiciousabnormality. Dictated on 10/04/11 1137 by Nisha Pierre MDscribed on 10/04/11 1601 by ITS IMPORTSign by Mikey Pierre MD on 10/04/11 1602 Sign by: Mikey Pierre MD 39-Vvu-425609:06 BMP Comments: appt 6/14/11 GAP 8 (Normal) Range: 5-15 CL 102 [...] of a clinically suspiciousab normality. Dictated on 10/01/10 153 by ANANYA ORTIZTranscribed on 10/01/10 153 by SWEETIE WAGNERSONSign by ANANYA ORTIZ on 10/04/10 1405 Sign [...] (Normal) Comments: Result: NEGATIVE COLOR YELLOW (Normal) 89-Uox-619411:54 CBCD,SMEAR DIFF RED CELL MORPH SeeNote {NORMAL} [...] CHOL 207 mg/dL (Abnormal) Comments: <200 mg/dL Pqmcfzoec901-214 mg/dL Borderline>240 mg/dL High Risk HDL 46 [...] mg/L (Normal) UR CREAT 27.6 mg/dL (Normal) :53 BILAT SCRN DIGITAL & CAD Radiology Report See Note (Normal) Comments: Exam Number: [id number] MAMMOGRAM, BILATERAL SCREENING DIGITAL AND CAD HISTORYRoutine [...] werealso examined with computer- aided detection software ([employer].). Reported By: ANANYA ORTIZ M.D. 42-Yyo-891703:28 LOWER EXT/JT ONLY (ROUTINE) Radiology Report See Note (Normal) Comments: Exam Number: [id number] CLINICAL:63-year-old female with a 5-week history of [...] mg/dL VLDL 20 mg/dL (Normal) Range: 5-40 42-Kbv-894630:00 BILAT SCRN DIGITAL & CAD Radiology Report See Note (Normal) Comments: Exam Number: [id number] MAMMOGRAM, BILATERAL SCREENING DIGITAL AND CAD HISTORYRoutine [...] mammograms werealso examined with computer-aided detection software ([employer], [employer] Reported By: ANANYA ORTIZ M.D. 02-Nov-20078:51 [...] 3.5-5.1 NA 142 mmol/L (Normal) Range: 136-145 77-Pml-714154:13 Urinalysis, Office (55241) UA - BILIRUBIN Negative (Normal) UA - BLOOD Non Hemolyzed Trace (Normal) UA - GLUCOSE Negative (Normal) UA - KETONES Negative mg/dL (Normal) UA - LEUKOCYTE ESTERASE Trace (Normal) UA - NITRITE Negative (Normal) UA - PH 6.0 (Normal) UA - PROTEIN Negative mg/dL (Normal) UA - SPECIFIC GRAVITY 1.020 (Normal) URINE UROBILINGN PAKO TIMED 2 mg/dL (Normal) 31-Zfc-891022:11 BILAT SCRN DIGITAL & CAD Radiology Report See Note (Normal) Comments: Exam Number: [id number] MAMMOGRAM, BILATERAL SCREENING DIGITAL AND CAD HISTORYRoutine [...] werealso examined with compute r-aided detection software ([employer], Inc[employer] Reported By: ANANYA ORTIZ M.D. 91-Olt-951005:24 Microscopic Examination Comments: PATIENT NOT FASTINGPERFORMED BY: PAYAL LabCloakroomrp Hymvrv0518 [facility] [id number] Bacteria Moderate (Abnormal) Crystal Type Calcium Oxalate (Normal) Comments: Amorphous Sediment Crystals Present (Abnormal) Epithelial Cells (non renal) >10 {/hpf} (Abnormal) Range: 0 - 10 Mucus Threads Present (Abnormal) RBC None seen {/hpf} (Normal) Range: 0 - 3 WBC 0-5 {/hpf} (Normal) Range: 0 - 5 Yeast Present (Abnormal) 90-Uba-079904:24 URINALYSIS W/O MICRO (08797) Comments: PATIENT NOT FASTINGPERFORMED BY: [facility] Gnnkqf2147 [facility] [id number] Appearance Clear (Normal) Bilirubin Negative (Normal) Glucose Negative (Normal) Ketones Negative (Normal) Microscopic Examination See below: (Normal) Nitrite, Urine Negative (Normal) Occult Blood Negative (Normal) pH 5.5 (Normal) Range: 5.0-7.5 Protein Negative (Normal) Specific Magness 1.023 (Normal) Range: 1.005-1.030 Urine-Color Yellow (Normal) Urobilinogen,Semi-Qn 0.2 mg/dL (Normal) Range: 0.0-1.9 WBC Esterase 1+ (Abnormal) :24 METABOLIC PANEL, COMPREHENSIVE Comments: PATIENT NOT FASTINGPERFORMED BY: LabCoSara [place] [id number] [facility] [id number] (13579) A/G Ratio 2.0 (Normal) Range: 1.1-2.5 Albumin, [...] Sodium, Serum 143 mmol/L (Normal) Range: 135-148 :24 CBC WITH MANUAL DIFF (46127) Comments: PATIENT NOT FASTINGClinical Information: ADD DRAW FEE 195835 ADD J 43406 PERFORMED BY: PAYAL LabCoSaint [facility] Hospital [facility] Boonton TownshipWbbxjx7166 [facility] [id number] Baso (Absolute) 0.0 {x10E3/uL} (Normal) Range: 0.0-0.2 [...] Normal throat fredo isolated. No beta-hemolyticstreptococcus isolated. 10-Kwo-627561:20 CHEST, PA AND LATERAL Radiology Report See Note (Normal) Comments: Exam Number: [id number] PA AND LATERAL CHEST HISTORYShortness of breath, [...] T PROT 7.1 g/dL (Normal) Range: 6.4-8.2 13-Xuz-48393:01 PFLIP CHOL 219 mg/dL (Abnormal) Comments: <200 [...] : URI Symptoms Indication: Bronchitis Planned Observations LIBBY CULTURE-OTHER (96625)Indication: Pharyngitis, acute On: 48-Tul-053508:52 Request LIPID PANEL (05326)Indication: Hypercholesterolemia On: :09 Request METABOLIC PANEL, COMPREHENSIVE (55323)Indication: Hypercholesterolemia On: :09 Request TRIGLYCERIDES (49090)Indication: Hypercholesterolemia On: 6-Ske-449189: Request LDL CHOLESTEROL-DIRECT (38010)Indication: Hypercholesterolemia On: 6-Azs-372845: Request Metabolic Panel, Basic (38329)Indication: Hypertension On: 01-Ntn-170396:19 Request Metabolic Panel, Comprehensive (30963)Indication: Hypertension On: 90-Sll-830731:05 Request Comments: in six months (approximately) CBC, Platelets & Auto Diff (37669)Indication: Hypertension On: 48-Uqj-738808:05 Request CALCIFIDIOL (88333) VIT D 25Indication: Preoperative clearance On: :32 Request Lipid Panel (46194)Indication: Preoperative clearance On: 04-Ale-653598:32 Request Metabolic Panel, Comprehensive (60351)Indication: Preoperative clearance On: :32 Request TSH (53693)Indication: Preoperative clearance On: :32 Request CBC WITH MANUAL DIFF (70747)Indication: Preoperative clearance On: 47-Ien-153864:32 Request CBC, Platelets & Auto Diff (41321)Indication: Alteration of body temperature On: :02 Request Metabolic Panel, Basic (61228)Indication: Hypertension On: 06-Oct-20158:43 Request URINALYSIS, W/ MICRO (89659)Indication: Hypertension On: 0-Imu-209448:03 Request METABOLIC PANEL, COMPREHENSIVE (37125)Indication: Hypertension On: 7-Aov-418007:03 Request LIPID PANEL (08344)Indication: Hypertension On: :02 Request CBC with auto diff (81565)Indication: Hypertension On: :02 Request CALCIFEDIOL (33743)Indication: Hypertension On: 27-Fux-810112:17 Request TSH (84506)Indication: Hypertension On: 39-Ilb-518676:16 Request CBC WITH MANUAL DIFF (11627)Indication: Hypertension On: 54-Xur-698090:16 Request Lipid Panel (00648)Indication: Hypercholesterolemia On: 51-Hda-498299:16 Request Metabolic Panel, Comprehensive (39733)Indication: Hypertension On: 64-Bxw-545255:16 Request CALCIFIDIOL (60367) VIT D 25Indication: Benign breast cyst in female On: :39 Request URINALYSIS, W/ MICRO (83398)Indication: Hypertension On: 58-Ilj-886889:38 Request MICROALBUMIN: CREATININE RATIO (35109) AND (23883)Indication: Hypertension On: 51-Rzo-885913:38 Request METABOLIC PANEL, COMPREHENSIVE (22501)Indication: Hypertension On: 08-Ntc-165952:38 Request LIPID PANEL (67378)Indication: Hypertension On: :38 Request CBC WITH MANUAL DIFF (28866)Indication: Hypertension On: :38 Request URINALYSIS (22858)Indication: Hypertension On: 52-Hfs-933154:12 Request CBC with manual diff (62206)Indication: Hypertension On: :53 Request Lipid Panel (57677)Indication: Hypertension On: :52 Request Metabolic Panel, Comprehensive (77824)Indication: Hypertension On: :52 Request Metabolic Panel, Basic (97973)Indication: Hypertension On: 07-Tiq-660125:12 Request METABOLIC PANEL, BASIC (18634)Indication: Hypertension On: 21-Gww-250654:27 Request MICROALBUMIN: CREATININE RATIO (75020) AND (66483)Indication: Hypercholesterolemia On: :39 Request CBC, PLATELETS & AUT DIFF (01469)Indication: Hypercholesterolemia On: :39 Request URINALYSIS (23795)Indication: Hypercholesterolemia On: :39 Request LIPID PANEL (13439)Indication: Hypercholesterolemia On: :39 Request METABOLIC PANEL, COMPREHENSIVE (92637)Indication: Hypercholesterolemia On: :39 Request URINALYSIS, W/ MICRO (27000)Indication: Hypertension On: :58 Request MICROALBUMIN: CREATININE RATIO (76713) AND (58676)Indication: Hypertension On: :58 Request METABOLIC PANEL, COMPREHENSIVE (52543)Indication: Hypertension On: :58 Request LIPID PANEL (97564)Indication: Hypertension On: :58 Request CBC WITH MANUAL DIFF (47488)Indication: Hypertension On: :58 Request Rapid Strep Test, Office (00147)Indication: Pharyngitis, acute On: :54 Request LIBBY CULTURE-OTHER (18698)Indication: Pharyngitis, acute On: :54 Request LIPID PANEL (06542)Indication: Hypercholesterolemia On: 5-Igz-031749:11 Request HEPATIC FUNCTION PANEL (36319)Indication: Hypercholesterolemia On: 3-Smz-777856:11 Request Comments: in six months CBC WITH MANUAL DIFF (79484)Indication: Hypertension On: :35 Request LIPID PANEL (80506)Indication: Hypertension On: :34 Request METABOLIC PANEL, COMPREHENSIVE (49122)Indication: Hypertension On: 70-Hmr-453700:34 Request Planned Encounters Medical; [facility] 4 Month Fu - On: 15-Jan-2019 11:30 [facility] Damaris TERRY, Sade Butt MD Planned Procedures EsophagramBy: Sade Ocampo MD On: 26-Sep-2018 Intent Sade Ocampo MD Comments: with a 12 mm tablet swallow Ultrasound - ThyroidBy: Damaris TERRY, On: 11-Sep-2018 Intent Sade Butt MD DEXA SCAN AXIAL SKELETON (96433)By: On: 06-Apr-2018 Intent Sade Ocampo MD, MD, Dana M MAMMOGRAM BREAST BILATERAL On: 16-Mar-2018 Intent SCREENING DIGITAL (43333)By: Bonezzi Sade TERRY MD, Dana M EKG (72550)By: Sade Ocampo MD On: 13-Feb-2018 Intent Sade Ocampo MD Radiology - Hand - RightBy: Damaris On: 29-Jan-2018 Intent Sade TERRY MD, Dana M Radiology - Hip - LeftBy: Damaris On: 12-May-2017 Intent Sade TERRY MD, Dana M Radiology - Lumbar SpineBy: Damaris On: 12-May-2017 Intent Saed TERRY MD, Dana M MAMMOGRAM BREAST BILATERAL On: 13-Mar-2017 Intent SCREENING DIGITAL (21516)By: Sade Ocampo MD, MD, Dana M Aerosol Treatment (92434)By: Slajosefina On: 20-Jan-2016 Intent Dora RG MAMMOGRAM, SCREENING, BOTH BREAST On: 02-Oct-2015 Intent (37050)By: Sade Ocampo MD, MD, Dana M Bone Density StudyBy: Damaris TERRY, On: 02-Oct-2015 Intent Sade Butt MD BILATERAL MAMMOGRAMS (56893)By: On: 21-Sep-2015 Intent Sade Ocampo MD, MD, Dana M Prevnar 13 (63696)By: Damaris TERRY, On: 17-Oct-2014 Intent Sade Butt MD BILATERAL MAMMOGRAMS (38481)By: On: 16-Sep-2014 Intent Sade Ocampo MD, MD, Dana M Breast Screening - BilateralBy: On: 16-Sep-2013 Intent Sade Ocampo MD, MD, Dana M Rocephon Injection, 1 Gm On: 20-Nov-2012 Intent ([id number])By: Sade Ocampo MD Comments: Lot #[id number]-bilateral hipsDose- 2 gramsgiven by: IFRAH Anderson MD, Dana M THER/PROPH/DIAG INJ, SC/IM On: 20-Nov-2012 Intent ([id number])By: Sade Ocampo MD, MD, Dana M Eprescribed prescriptions On: 08-Nov-2012 Intent ([id number])By: Sade Ocampo MD, MD, Sade Barbosa PNEUM VAC ADLT/IMUMNOSPR, SBC/INTRM On: 15-Oct-2012 Intent ([id number])By: Jacquelyn Steven LPN Comments: Lot: [id number]: [id number]: 0.5mlRoute: IMSite: L deltoidGiven by: IFRAH Suh IMMUNIZ ADMNIN, 1 VAC, SNGL/COMBO On: 15-Oct-2012 Intent ([id number])By: Jacquelyn Steven LPN Breast Screening - BilateralBy: On: 08-Oct-2012 Intent Damaris TERRY, Sade Ocampo MD, Sade Barbosa IMMUNIZ ADMNIN, 1 VAC, SNGL/COMBO On: 08-Oct-2012 Intent ([id number])By: Sade Ocampo MD, MD, Sade Barbosa PNEUM VAC ADLT/IMUMNOSPR, SBC/INTRM On: 08-Oct-2012 Intent ([id number])By: Sade Ocampo MD, MD, Sade Barbosa IMMUNIZ ADMNIN, 1 VAC, SNGL/COMBO On: 08-Oct-2012 Intent ([id number])By: DAVID Nina FLU VAC, SPLIT, >3 YEARS, INTRAMUSC On: 08-Oct-2012 Intent ([id number])By: DAVID Nina MRI - Knee(s) - LeftBy: Donovan KIDD, On: 30-Dec-2011 Intent Alissa Garcia PHYSICAL THERAPY EVALUATION On: 30-Dec-2011 Intent ([id number])By: Alissa Man CNP Doppler Ultrasound OtherBy: Donovan On: 30-Dec-2011 Intent Alissa KIDD Radiology - Knee - LeftBy: Donovan On: 30-Dec-2011 Intent Alissa KIDD Breast Screening - BilateralBy: On: 04-Aug-2011 Intent Damaris TERRY, Sade Butt MD Eprescribed prescriptions On: 10-Jan-2011 Intent ([id number])By: Sade Ocampo MD, MD, Sade Barbosa EKG ([id number])By: DAVID Nina On: 12-Oct-2010 Intent MAMMOGRAM, SCREENING, BOTH BREASTS On: 20-Sep-2010 Intent ([id number])By: Haley Chaparro DO EKG ([id number])By: Sade Ocampo MD On: 17-Sep-2009 Intent Sade Ocampo MD MAMMOGRAM, SCREENING, BOTH BREASTS On: 17-Sep-2009 Intent ([id number])By: Sade Ocampo MD, MD, Dana M MAMMOGRAM, SCREENING, BOTH BREASTS On: 23-Sep-2008 Intent ([id number])By: Lara Iglesias Nuclear Stress Test/Stress On: 19-Oct-2007 Intent SPECT/TreadmillBy: Haley Chaparro DO EKG ([id number])By: Haley Chaparro DO On: 19-Oct-2007 Intent Comments: ekg showed normal sinus rhythym, normal axis, no acute st/t wave changes nsivcd Bio Z ([id number])By: Haley Chaparro DO On: 19-Oct-2007 Intent Comments: good paremeterss IMMUNIZ ADMNIN, 1 VAC, SNGL/COMBO On: 22-Aug-2007 Intent ([id number])By: Shruthi Louis LPN PNEUM VAC ADLT/IMUMNOSPR, SBC/INTRM On: 22-Aug-2007 Intent ([id number])By: Shruthi Louis LPN Comments: lot # [id number] exp- 09/06 LDLT patient tolerated well Flu Vaccine, Split IM ([id number])By: On: 22-Aug-2007 Intent Shruthi Louis LPN Comments: lot #[id number] exp- 02/04 RDLT patient tolerated well SPECIMEN HNDLNG/TRNSPRT, OFFC > LAB On: 18-Jun-2007 Intent ([id number])By: NAYELI DIAMOND CNP Pulse Oximetry ([id number])By: Maico On: 18-Jun-2007 Intent DAVID Radiology - Chest- PA and LatBy: On: 09-Feb-2007 Intent Lacey Sherman DO Aerosol Treatment ([id number])By: Lane On: 09-Feb-2007 Intent Lacey SALAZAR Comments: more air exchange-- softer rhonchi no wheeze Solu- Medrol Injection, 125mg On: 09-Feb-2007 Intent ([id number])By: Lane SALAZAR Lacey Comments: lot # [id number] 08/07 LGLT Radiology - ChestBy: Lane SALAZAR, On: 07-Feb-2007 Intent Lacey Matamorosu -Medrol Injection, 125 mg On: 07-Feb-2007 Intent ([id number])By: Mast Wanda VALADEZ Comments: Lot #: [id number] date:08/07Amount given: 125 mg/2 mlRoute: IMSite given: Right glutealGiven by: Magalys Michael LPN Inhaler Demo ([id number])By: DARA KIDD, On: 07-Feb-2007 Intent NAYELI Aerosol Treatment ([id number])By: DARA On: 07-Feb-2007 Intent NAYELI KIDD Comments: moderate improvement after treatment--still tons of wheezing diffuse inspir and exp IMMUNIZ ADMNIN, 1 VAC, SNGL/COMBO On: 13-Oct-2006 Intent ([id number])By: Sade Ocampo MD, MD, Dana M FLU VAC, SPLIT, >3 YEARS, INTRAMUSC On: 13-Oct-2006 Intent ([id number])By: Sade Ocampo MD, MD, Dana M MAMMOGRAM, SCREENING, BOTH BREASTS On: 13-Oct-2006 Intent ([id number])By: Sade Ocampo MD, MD, Dana M EKG ([id number])By: Sade Ocampo MD On: 13-Oct-2006 Intent Sade Ocampo MD Bio Z ([id number])By: Sade Ocampo MD On: 13-Oct-2006 Intent Sade [...] The patient does have durable power of contract attorney and living will. The patient h as noticed nothing from the geriatic depression scale. Other providers contributing to the patient's care are client portfolio manager, gastrologist (Dr. Pabon ) and other: (Opthalm: [facility] ).Encounter Diagnosis: Encounter for Medicare [...]
--- OUTSIDE RECORDS SUMMARY | 2019-01-17 14:51 | XMS RPT_ITS ---
:1945 Author Organization OHIP Support Name Relationship Address Phone KACEY LYNN Unavailable [address] + [place] [address] R Unavailable Unavailable Unavailable GREEN, KACEY Unavailable [address] + [place] [address] R Unavailable Unavailable Unavailable GREEN, KACEY Unavailable [address] + [place] [address] R Unavailable Unavailable Unavailable GREEN, KACEY Unavailable [address] + [place] [address] R Unavailable Unavailable Unavailable GREEN, KACEY Unavailable [address] + [place] [address] R Unavailable Unavailable Unavailable GREEN, KACEY Unavailable [address] + [place] [address] R Unavailable Unavailable Unavailable GREEN, KACEY Unavailable [address] + [place] [address] R Unavailable Unavailable Unavailable GREEN, KACEY Unavailable [address] + [place] [address] R Unavailable Unavailable Unavailable GREEN, KACEY Unavailable [address] + [place] [address] R Unavailable Unavailable Unavailable GREEN, KACEY Unavailable [address] + [place] [address] R Unavailable Unavailable Unavailable GREEN, KACEY Unavailable [address] + [place] [address] R Unavailable Unavailable Unavailable GREEN, KACEY Unavailable [address] + [place] [address] R Unavailable Unavailable Unavailable GREEN, KACEY Unavailable [address] + [place] [address] R Unavailable Unavailable Unavailable GREEN, KACEY Unavailable [address] + [place] [address] R Unavailable Unavailable Unavailable Care Team Providers Name Role Phone Damaris TERRY, Sade Barbosa Attending Unavailable Bonezzi , Sade M Referring Unavailable Bonezzi , Sade Barbosa Consulting Unavailable Bonezzi, Sade Attending Unavailable Bonezzi, Sade Referring Unavailable Bonezzi, Sade Primary Care Unavailable Cebul, Teodoro Attending Unavailable Bonezzi, Sade Referring Unavailable Laurent, Kyle Attending Unavailable Bonezzi, Sade Referring Unavailable Bonezzi, Sade Primary Care Unavailable Laurent, Kyle Attending Unavailable Bonezzi, Sade Primary Care Unavailable Bonezzi, Sade Attending Unavailable Bonezzi, Sade Primary Care Unavailable Bonezzi, Sade Referring Unavailable Bonezzi, Sade Attending Unavailable Bonezzi, Sade Primary Care Unavailable Bonezzi, Sade Attending Unavailable Bonezzi, Sade Referring Unavailable Bonezzi, Sade Primary Care Unavailable Teetee, Mauricio Attending Unavailable Bonezzi, Sade Referring Unavailable Bonezzi, Sade Primary Care Unavailable Bonezzi, Sade Consulting Unavailable Bonezzi, Sade Attending Unavailable Bonezzi, Sade Primary Care Unavailable Bonezzi, Sade Attending Unavailable Bonezzi, Sade Primary Care Unavailable Bonezzi, Sade Attending Unavailable Bonezzi, Sade Primary Care Unavailable Sibilia, Teodoro Attending Unavailable Sibilia, Teodoro Referring Unavailable Bonezzi, Sade Primary Care Unavailable Bonezzi, Sade Attending Unavailable Bonezzi, Sade Referring Unavailable Bonezzi, Sade Primary Care Unavailable Bonezzi, Sade Attending Unavailable Bonezzi, Sade Referring Unavailable Bonezzi, Sade Primary Care Unavailable PROBLEMS PROBLEMS DATE TYPE CONDITION / CODE ATTENDING STATUS SOURCE 11/09/2018 Unknown R13.10 - CeTeodoro ferrell Active [place] Dysphagia, Community unspecified / Hospital R13.10(ICD-10) Repository 11/09/2018 Unknown F45.8 - Other Cebul, Teodoro Active [place] somatoform Community disorders / Hospital F45.8(ICD-10) Repository 09/03/2018 Unknown E78.00 - Pure Bonezzi, Sade Active [place] hypercholesterole Community mike, unspecified Hospital / E78.00(ICD-10) Repository 05/24/2018 Unknown R91.1 - Solitary Sibilia, Teodoro Active [place] pulmonary nodule Community / R91.1(ICD-10) Hospital Repository 04/25/2018 Unknown Z12.31 - Bonezzi, Sade Active [place] Encounter for [facility] mammogram for Repository malignant neoplasm of breast / Z12.31(ICD-10) PROCEDURES PROCEDURES No Procedure Records FoundRESULTS RESULTS SURGERY VISIT REPORT Observed: 11/09/2018 Status: F Source: [place] 1:27 PM [facility] REPOSITORY [facility] [address] [place] [address] OFFICE VISIT Date of Service: 11/09/18 MR#: [id number] Acct: [id number] Name: SACHIN LYNN Rep #: [id number] : 1945 Provider: Teodoro Humphries MD Age/Sex: 73/F Location: [facility] Status: Signed Intake Vital Signs11/09/18 Height 5 ft 2 in 11/09/18 Weight: 168 lb 4 oz 11/09/18 Body Mass Index (BMI) 30.7 11/09/18 Blood Pressure 129/80 H Intake Visit Reasons: Difficulty Swallowing Xray/US Chief Complaint: globus sensation throat, GERD Ep Technologist Required: No Is patient in pain?: No Allergies clavulanic acid [From Augmentin] Allergy (Mild, Verified 11/09/18 13:11) GI upset amoxicillin [From Augmentin] Adverse Reaction (Mild, Verified 11/09/18 13:11) GI upset levofloxacin [From Levaquin] Adverse Reaction (Mild, Verified 11/09/18 13:11) gi upset Medications losartan 100 mg-hydrochlorothiazide 12.5 mg tablet PO 60 Days #60 12/18/17 [History Confirmed 11/09/18] pantoprazole 40 mg tablet,delayed release PO 60 Days #60 12/18/17 [History Confirmed 11/09/18] cyclobenzaprine 10 mg tablet 10 mg PO TID 11/09/18 [History Confirmed 11/09/18] ezetimibe 10 mg tablet 10 mg PO DAILY 11/09/18 [History Confirmed 11/09/18] Is last menstrual period known: No Post menopausal: Yes Patient : No PFSH Medical History Globus sensation (Acute) Esophageal dysphagia (Acute) Carotid stenosis, bilateral (Acute) Dysphagia (Acute) GERD (gastroesophageal reflux disease) (Acute) Arthritis (Acute) knee pain (Acute) HTN (hypertension) (Chronic) Surgical History History of cataract extraction (Acute) History of esophagogastroduodenoscopy (EGD) (Acute) Status post debridement of bone spur (Acute) History of hysterectomy (Acute) History of tonsillectomy (Acute) Family History Father Parkinson disease Carotid stenosis, bilateral Grandfather CVA (cerebral vascular accident) Grandmother Cancer lung Social History Smoking Status: Never smoker alcohol intake: never HPI HPI HPI: SACHIN LYNN, is a 73 F who presents to the office today for surgical consultation regarding esophageal dysphasia. She also has a globus sensation. The patient was referred by her primary care's and Dr. Sade Ocampo and a written copy of my surgical consult recommendations will be returned to her. The patient does note that she has seen Dr. Bo Moreno ENT in the past for sinus issues. She also has allergies. More recently though she has been complaining of a constant pressure sensation in the anterior neck area. She states the only time it resolves is when she is asleep. As of September 19, 2018 she had a thyroid ultrasound performed at the [facility]. The right lobe measures to minimally enlarged at 5.3 x 2.1 x 2 cm. It has a homogeneous echotexture. There is a 3 mm calcification in the upper right lobe. No soft tissue nodules. The left lobe of the thyroid measures 4.3 x 2.1 x 1.5 cm. There were felt to be no clinically significant findings on this exam. On October 16, 2018 at the [facility] the patient had a barium esophagram. This demonstrated that with the barium the study was felt to be normal. No hiatal hernia. No reflux identified. However a barium tablet did become lodged at the EG junction. The patient has had a very remote upper endoscopy. She has not had any weight loss. There is been no nausea or vomiting. She does not complain of heartburn or water brash symptoms. Previously however she did report to Dr. Ocampo that food gets hung up in her lower esophagus. Her medications include a newer prescribed pantoprazole 40 mg daily ROS General General: No weight change, appetite, fatigue, colon cancer, breast cancer or weakness HEENT HEENT: No difficulty swallowing, eye injury, eye surgery, swollen glands or hoarseness Endo Endocrine: No thyroid disease, diabetes mellitus, thyroid cancer, Hair loss, heat intolerance or cold intolerance Musc Musculoskeletal: Yes arthritis; no back problems, rheumatoid arthritis, gout or joint pain Cardio Cardiovascular: Yes high blood pressure; no murmur, pacemaker, heart disease, atrial fibrillation, heart attack, heart stent, palpitations, shortness of breat with exertion or chest pain Gastro Gastrointestinal: No abdominal pain, No nausea or vomiting, No diarrhea, No constipation, No blood in stool, Yes acid reflux, No hemorrhoids, No ulcers, No gallbladder problem, No black,tarry stools Rony Hematologic: No blood thinners, No blood disorders, No bleeding, No anemia, No blood clots Neuro Neurologic: No weakness Exam Const General: cooperative, healthy appearing Nutritional Appearance: obese Orientation: alert, awake HENSC Head: normal to inspection Eyes General: appearance normal, both eyes and all related structures Resp Effort AND Inspection: normal respiratory effort Auscultation: clear to auscultation bilaterally Cardio Rate: regular rate Rhythm: regular rhythm Heart Sounds: no murmurs Other: Carotids are 2+. No carotid bruits. No cervical adenopathy The thyroid is not easily palpable GI Palpation: soft, no hepatosplenomegaly Auscultation: normal bowel sounds Skin General: no rashes or lesions noted Neuro Cranial Nerves: CN's II-XI intact bilaterally Extrem General: no calf tenderness bilaterally Psych Affect: normal affect Assessment AND Plan Problems 1. Esophageal dysphagia R13.10 2. Globus sensation F45.8 Plan 73-year-old female with a globus sensation and findings consistent with esophageal dysphasia. Barium tablet becomes lodged at the EG junction. The patient may very well have silent gastroesophageal reflux disease. The patient was appropriately initiated on a proton pump inhibitor. I do recommend to the patient a esophagogastroduodenoscopy with anticipated biopsy. Very careful inspection for possible H. pylori infection or eosinophilic esophagitis will be pursued. Evidence of any type of reflux and appropriate biopsies. If a Schatzki ring is identified then I have instructed the patient that we may pursue hydrostatic dilatation at that setting as well. She has had an opportunity to ask and have questions answered and is comfortable with this process. The globus sensation may be secondary to silent reflux. If the upper endoscopy is completely unremarkable then might consider future referral back to Dr. Bo Delgadillo ENT. I very much appreciate the kind opportunity of assisting with her surgical care CC: Dr. Sade Humphries M.D., F.A.C.S. Coding Level of Care Code Detailed, Low Diagnoses Esophageal dysphagia R13.10 Globus sensation F45.8 11/09/18 1327 <Electronically signed by Teodoro Humphries MD> Date Teodoro Humphries MD Cosigner Signature: Date (if applicable) CC: Sade Ocampo MD ESOPHAGUS ONLY Observed: 10/16/2018 Status: F Source: [place] 8:53 [facility] REPOSITORY [facility] Imaging Services [address] [place] [address] Esophagus Only MR#: [id number] Acct: [id number] Name: SACHIN LYNN Rep #: [id number] : 1945 F 72 From: Mikey Pierre MD PCP: Sade Ocampo MD Status: REG CLI Study: Esophagus Only Date of Exam: 10/16/18 Exam# [id number] Ordering Dr: Sade Ocampo MD STUDY: X-RAY - ESOPHAGUS (BARIUM SWALLOW) WITH FLUOROSCOPY REASON FOR EXAM: Female, 72 years old. Dysphagia. Goiter. TECHNIQUE: 16 view(s) of the esophagus were obtained following swallowing of barium. FLUOROSCOPY TIME (if supplied): (0:34) minutes/seconds COMPARISON: None. FINDINGS: There is no demonstrated esophageal foreign body. There is no demonstrated stricture or mucosal abnormality. Normal gastroesophageal junction, without a demonstrated hiatal hernia. The patient ingested a 12 mm tablet of barium. The tablet is trapped at the gastroesophageal junction. Normal visualized aortic arch and descending thoracic aorta. Normal visualized pulmonary parenchyma. There are diffuse degenerative changes of the visualized thoracic spine. RAD/Esophagus Only IMPRESSION: Normal plain film x-ray examination (barium swallow) of the esophagus. The 12 mm tablet of barium is trapped at the gastroesophageal junction. Electronically Signed: Mikey Pierre MD at 13:36 EST Tel [phone], Service support , CC: Sade Ocampo MD Netbackup Admin: Signed THYROID Observed: 09/19/2018 Status: F Source: [place] 2:31 PM [facility] REPOSITORY [facility] Imaging Services [address] [place] [address] Thyroid MR#: [id number] Acct: [id number] Name: SACHIN LYNN Rosana Rep #: [id number] : 1945 F 72 From: Hugo Ventura MD PCP: Sade Ocampo MD Status: REG CLI Study: Thyroid Date of Exam: 09/19/18 Exam# [id number] Ordering Dr: Sade Ocampo MD STUDY: THYROID [...] upper right thyroid lobe measures 3 mm. No soft tissue nodules. LEFT LOBE: The left lobe of the thyroid gland measures 4.3 x 2.1 x 1.5 cm. There is a homogeneous echotexture. There are no demonstrated solid, cystic or complex lesions. ISTHMUS: The isthmus measures 3.0 mm. The regional lymph nodes are normal. US/Thyroid IMPRESSION: 1. No solid or cystic nodules. 2. Enlarged right thyroid lobe. 3. Probable dystrophic calcification of the right thyroid lobe, doubtful significance. Electronically Signed: Hugo Ventura MD at 9:15 EST , Service support , CC: Sade Ocampo MD Netbackup Admin: Signed TRIGLYCERIDES Collected: 09/03/2018 Status: F Source: [place] 10:09 AM [facility] REPOSITORY Order Comment: Comments: Y TYPE CODE TESTS RESULT OUT OF RANGE REFERENCE UNITS LAB L501.5000 mg/dL Normal TRIG 117 Result Comment: The drugs N-Acetylcysteine and Metamizole may falsely depress this assay. Serum Triglycerides Reference Interval Normal <150 mg/dL Borderline high 150 - 199 mg/dL High 200 - 499 mg/dL Very High > or = 500 mg/dL Performed By: #### L501.5000 #### [facility] [address] [place], [address] LDL, DIRECT Collected: 09/03/2018 Status: F Source: [place] 10:09 AM [facility] REPOSITORY Order Comment: Comments: Y TYPE CODE TESTS RESULT OUT OF REFERENCE UNITS RANGE LAB L3300.4500 0-99 mg/dL High LDL,DIR 147 [id number] Result Comment: Performed at: [facility] [id number] Gold Miner: Steve Carey PhD, Phone: [phone] LAB L3300.7357 . Normal Test not COMMENT performed Performed By: #### L3300.4490 #### [facility] (refer to report for specific site) refer to report for address and phone number CRP Collected: 05/24/2018 Status: F Source: [place] 2:27 PM [facility] REPOSITORY TYPE CODE TESTS RESULT OUT OF RANGE REFERENCE UNITS LAB L501.6710 0.0-3.0 mg/L High 5.31 C-REACTIVE PROT Result Comment: C-Reactive Protein (CRP) provides useful information for the diagnosis, therapy and monitoring of inflammatory processes and associated diseases. For the evaluation of Relative Risk for Cardiovascular Disease, a High Sensitivity CRP (HSCRP) should be ordered. Performed By: #### L501.6710 #### [facility] [address] [place], [place], [address] ERYTHROCYTE SED RATE Collected: 05/24/2018 Status: F Source: [place] 2:27 PM [facility] REPOSITORY TYPE CODE TESTS RESULT OUT OF RANGE REFERENCE UNITS LAB L102.0000 0-30 mm/hr Normal SED RATE 3 Performed By: #### L101.9900 #### [facility] [address] [place], [place], [id number] CARCINOEMBRYONIC ANTIGEN Collected: 05/24/2018 Status: F Source: [place] 2:27 PM [facility] REPOSITORY TYPE CODE TESTS RESULT OUT OF RANGE REFERENCE UNITS LAB L3100.2300 0.0-4.7 ng/mL Normal CEA 1.4 Result Comment: Caroline ECLIA methodology Nonsmokers <3.9 Smokers <5.6 Performed at: [address] [id number] Gold Miner: Steve Carey PhD, Phone: [phone] Performed By: #### L3100.2300, L3100.0902 #### [facility] (refer to report for specific site) refer to report for address and phone number URINE HISTOPLASMA Collected: 05/24/2018 Status: F Source: [place] ANTIGEN 2:27 PM [facility] REPOSITORY TYPE CODE TESTS RESULT OUT OF RANGE REFERENCE UNITS LAB L3100.0902 Normal UR HISTO AG Result Comment: TEST RESULT LIMITS Histoplasma Gal'krys Ag Ur <0.5 <0.5 ng/mL Disclaimer: This test was developed and its performance characteristics determined by [employer]. It has not been cleared or approved by the Food and Drug Administration. TESTING PERFORMED AT [facility]. ORIGINAL REPORT ON FILE IN LAB CONTAINS ADDITIONAL TEST SITE INFORMATION. Performed By: #### L3100.2300, L3100.0902 #### [facility] (refer to report for specific site) refer to report for address and phone number CHEST PA AND LATERAL Observed: 05/24/2018 Status: F Source: [place] 2:26 PM [facility] REPOSITORY [facility] Imaging Services [address] [place] [address] Chest PA and Lateral MR#: [id number] Acct: [id number] Name: SACHIN LYNN Rep #: [id number] : 1945 F 72 From: Jose Elias Campbell MD PCP: Sade Ocampo MD Status: REG CLI Study: Chest PA and Lateral Date of Exam: 05/24/18 Exam# [id number] Ordering Dr: Teodoro Sanchez MD STUDY: X-RAY CHEST REASON FOR EXAM: Female, 72 years old. Substernal chest pain TECHNIQUE: PA and lateral views of the chest. COMPARISON: CT scan from 04/17/2018 FINDINGS: There is a 2.19 x 2.27 cm nodule in the left suprahilar region. The lungs are clear and expanded. There is no demonstrated pleural abnormality. Normal size heart. Normal mediastinum and solo. Normal visualized pulmonary arteries. Normal visualized aortic arch and descending thoracic aorta. Normal visualized thoracic spine. Normal visualized ribs, clavicles, and shoulders. There is no demonstrated abnormality of the visualized soft tissue structures of the upper abdomen. RAD/Chest PA and Lateral IMPRESSION: No acute pulmonary process Stable 2.2 cm left suprahilar nodule Electronically Signed: Elijah Campbell MD at 15:19 EDT , Service support , CC: Sade Ocampo MD; Teodoro Sanchez MD Netbackup Admin: Signed PET/CT TUMOR BASE Observed: 04/30/2018 Status: F Source: [place] -THIGH INIT 9:56 AM [facility] REPOSITORY [facility] Imaging Services [address] [place] [address] PET/CT Tumor Base -Thigh Init MR#: [id number] Acct: [id number] Name: SACHIN LYNN Rep #: [id number] : 1945 F 72 From: Blane Monzon DO PCP: Sade Ocampo MD Status: REG CLI Study: PET/CT Tumor Base -Thigh Init Date of Exam: 04/30/18 Exam# [id number] Ordering Dr: Sade Ocampo MD EXAMINATION: FDG PET/CT INDICATIONS: A 72-year-old female with reported history of pulmonary nodularity. COMPARISON EXAMINATION: CT of the chest report dated 04/17/18 INDEX LESION SIZE SUV INTERPRETATION Left upper hemithorax pulmonary parenchyma, left upper lobe 22.8 x 26.5-mm (frame 186) 1.1 Quantitative criteria for viable neoplasm are not fulfilled, sequential radiologic investigation recommended TECHNIQUE: Following the intravenous administration of 15.76 mCi of F-18 deoxyglucose via the left antecubital fossa, multiplanar image acquisitions of the neck, chest, abdomen and pelvis to level of mid thigh, obtained at one hour post radiopharmaceutical administration contemporaneously interpreted with the current CT of the neck, chest, abdomen and pelvis to level of mid thigh, dated 04/30/[address] of the chest report dated 04/17/18 reveal: SERUM GLUCOSE LEVEL: 112 mg/dl. HEIGHT: 61 inches. WEIGHT: 167 lbs. FINDINGS: 1. Mild increased glucose metabolism is defined in the left upper anterior hemithorax pulmonary parenchyma, left upper lobe, generating a corrected maximum calculated standard uptake value of 1.1. The maximal axial diameter of the corresponding non-calcified parenchymal density on review of CT of the thorax dated 04/30/18 is 22.8-mm (transverse) x 26.5-mm (AP). 2. Normal physiologic distribution of the radiopharmaceutical is apparent in the hepatic (3.3) and splenic parenchyma, both renal units, bladder and visualized intestinal tract. The visualized portion of the cerebral cortex, cerebellar hemispheres and basal ganglia demonstrates uniform and preserved glucose metabolism. Diffuse radiopharmaceutical concentration is noted in all four quadrants of the abdomen and pelvis. Prominent glucose concentration is observed in the anterior neck, laryngeal structures contiguous to the cricoids cartilage, cricopharyngeus musculature without evidence of soft tissue thickening most consistent with physiologic distribution of the radiopharmaceutical. Prominent glucose metabolism is defined in the descending thoracic aorta. Pertinent CT findings are as follows: CHEST: There are no additional parenchymal densities-nodules noted in the right-left hemithorax demonstrating discernible increased glucose metabolism. There is atherosclerotic calcification defined in the thoracic aorta without evidence of dilatation-aneurysm formation. Right-left subcentimeter axillary soft tissue densities are ametabolic. ABDOMEN AND PELVIS: Cholelithiasis is defined. There is atherosclerotic calcification defined in the abdominal aorta without evidence of dilatation-aneurysm formation. Pelvic arterial calcification is observed. Right-left inguinal soft tissue densities with fatty hilus formation are ametabolic. SKELETAL: Degenerative changes are noted in the cervical, thoracic and lumbar spine. PET/PET/CT Tumor Base -Thigh Init IMPRESSION: 1. NEGATIVE EXAMINATION. There is no definitive quantitative scintigraphic evidence of viable neoplasm. 2. Increased glucose concentration observed in the left upper hemithorax pulmonary parenchyma, left upper lobe, does not fulfill quantitative criteria for viable neoplasm. (Álvarez et al, Annals of Internal Medicine, 138:724, 2003). 3. Metabolic and/or anatomic stability may be ensured in the left hemithorax mild metabolic pulmonary parenchymal abnormality with repeat FDG PET study and/or CT of the thorax in three months. (Xiu, Journal of Nuclear Medicine 45:88, P2004 [place], Seminars in Thoracic and Cardiovascular Surgery 14:292, 2002). 4. Prominent glucose concentration observed in the descending thoracic aorta is commensurate with activated leukocytes associated with atherosclerotic plaque formation. ([place] et al, Clinical Nuclear Medicine 29:93, 2004). Electronic Signature Blane Monzon D.O. Electronically Signed: Blane Monzon DO at 23:12 EDT Tel , Service support , CC: Sade Ocampo MD Netbackup Admin: Signed DEXA BONE DENSITY Observed: 04/24/2018 Status: F Source: [place] STUDY 12:26 PM [facility] REPOSITORY [facility] Imaging Services [address] [place] [address] Dexa Bone Density Study MR#: [id number] Acct: [id number] Name: SACHIN LYNN Rep #: [id number] : 1945 F 72 From: Mikey Pierre MD PCP: Sade Ocampo MD Status: REG CLI Study: Dexa Bone Density Study Date of Exam: 04/24/18 Exam# [id number] Ordering Dr: Sade Ocampo MD STUDY: DUAL [...] Neck: g/cm2 (0.867) / T-score (-1.2) / Z- score (0.6) Right Femur Total: g/cm2 (1.006) / T-score (0.0) / Z- score (1.6) Right Femoral Neck: g/cm2 (0.895) / T-score (-1.0) / Z-score (0.8) The T-Scores on the most recent prior examination were: Lumbar Spine (L1-L4): There has been worsening of bone density since the previous examination. Left Femur Total: which represents a worsening of 9.2%. Right Femur Total: which represents a worsening of 80%. BD/Dexa Bone Density Study IMPRESSION: The patient is considered osteopenic as outlined below according to World Bal[place] Organization (WHO) criteria with a moderate fracture risk. There [...] -1.6 through -2.0 Severe -2.1 through -2.4 The Z-score is the number of standard deviations above or below age-matched controls. A Z-score of less than -1.5 would be considered abnormal. References: 1. NIH Osteoporosis and Related Bone Diseases http://www.osteo.org 2. International Society for Clinical Densitometry http://www.iscd.org 3. National Osteoporosis Foundation http://www.nof.org Electronically Signed: Mikey Pierre MD at 14:05 EDT Tel [phone], Service support , CC: Sade Ocampo MD Netbackup Admin: Signed DOWNTIME REPORT Observed: 04/19/2018 Status: F Source: [place] 12:13 PM [facility] REPOSITORY [facility] Medical Records Department [address] [place] [address] Downtime Report MR#: [id number] Acct: [id number] Name: SACHIN LYNN Rep #: [id number] : 1945 72 From: Donte De Jesus PCP: Sade Ocampo MD Status: REG CLI This patient was seen during an EMR downtime April 02, 2018 - April 09, 2018. This patient may have a combination of paper and electronic documentation or all paper documentation. All documentation is viewable within the e-chart portion of [employer] for each patient visit. LIMITED CHEST CT Observed: 04/17/2018 Status: F Source: [place]UL[place] W/CCTA 2:06 PM [facility] REPOSITORY [facility] Imaging Services [address] [place] [address] w/CCTA MR#: [id number] Acct: [id number] Name: SACHIN LYNN Rep #: [id number] : 1945 F 72 From: Mikey Pierre MD PCP: Sade Ocampo MD Status: REG CLI Study: Limited Chest CT w/CCTA Date of Exam: 04/17/18 Exam# [id number] Ordering Dr: Sade Ocampo MD STUDY: CT CHEST WITHOUT CONTRAST REASON FOR EXAM: Female, 72 years old. Calcium scoring. This is a CT chest over read. RADIATION DOSAGE (If Supplied By Facility): CTDIvol = ( 8.99 ) mGy, DLP = ( 179.71 ) mGycm TECHNIQUE: Transaxial imaging was performed without the administration of intravenous contrast material. Individualized dose optimization techniques were used for this CT. COMPARISON: None. FINDINGS: There is a 2.1 cm x 2.2 cm rounded mass in the left upper lobe. A linear soft tissue density most likely a scar is seen emanating from the anterior portion of this nodular density. Correlation with a PET scan is recommended and tissue diagnosis is recommended as well. There is no demonstrated pleural abnormality. There are calcifications of the coronary arteries. Normal mediastinum. Normal hilar regions. Normal unenhanced pulmonary arteries. There is atherosclerotic calcification of the aortic arch. There are multi-level degenerative changes of the thoracic spine. Gallstones. CT/Limited Chest CT w/CCTA IMPRESSION: 2.1 cm x 2.2 cm mass in the left upper lobe. Correlation with a PET scan is recommended. Electronically Signed: Mikey Pierre MD at 15:38 EDT Tel [phone], Service support , CC: Sade Ocampo MD Netbackup Admin: Signed SCREENING MAMM (CAD), Observed: 04/09/2018 Status: F Source: [place] BILAT 2:59 PM [facility] REPOSITORY [facility] Imaging Services [address] [place] [address] SCREENING MAMM (CAD), BILAT MR#: [id number] Acct: [id number] Name: SACHIN LYNN Rep #: [id number] : 1945 F 72 From: Valentín Gross MD PCP: Sade Ocampo MD Status: REG CLI Study: SCREENING MAMM (CAD), BILAT Date of Exam: 04/09/18 Exam# [id number] Ordering Dr: Sade Ocampo MD MAMMOGRAPHY - BILATERAL SCREENING REASON FOR EXAM: Female, 72 years old. Routine annual screening examination. PERTINENT HISTORY: FAM HX PAT GMA AGE 79 LOST 10# NO SX RT CYST ASPIRATION IN DR MORROW OFFICE 2013 TECHNIQUE: Digital bilateral breast starr (3D mammographic acquisition) in the CC and MLO projections. 2-D mediolateral oblique (MLO) and craniocaudad (CC) views of both breasts were obtained. CAD: Full Field Digital Mammography with Computer Added Detection was performed. COMPARISON: 03/22/2017, 10/28/2015 and 10/27/2014 FINDINGS: Breast Composition: The breasts are heterogeneously dense, which may obscure small masses. There are no dominant masses or suspicious calcifications. No other significant abnormalities are identified. BI/SCREENING MAMM (CAD), BILAT IMPRESSION: Stable bilateral screening mammogram. Yearly follow-up mammogram recommended. (A) ASSESSMENT CATEGORY: BIRADS Category 2: Benign. A letter regarding these results will be sent to the patient by the facility within 30 days. Approximately 10% of breast cancers are not detected by mammography. A normal mammogram should not delay biopsy of a clinically suspicious abnormality. [id number] Electronically Signed: Valentín Gross MD at 14:15 EDT Tel , Service support , CC: Sade Ocampo MD Netbackup Admin: Signed HAND MIN 3 VIEWS Observed: 01/30/2018 Status: F Source: [place] 2:12 PM [facility] REPOSITORY [facility] Imaging Services [address] [place] [address] Hand Min 3 Views MR#: [id number] Acct: [id number] Name: SACHIN LYNN Rosana Rep #: [id number] : 1945 F 72 From: Fernando Oliva DO PCP: Sade Ocampo MD Status: REG CLI Study: Hand Min 3 Views Date of Exam: 01/30/18 Exam# [id number] Ordering Dr: Sade Ocampo MD STUDY: X-RAY - RIGHT HAND REASON FOR EXAM: Female, 72 years old. Right hand pain TECHNIQUE: 3 view(s) of the hand. COMPARISON: None. FINDINGS: No acute fracture or dislocation. Moderate to severe degenerative changes of the DIP joints throughout the hand with suggestion of erosive osteoarthritis. Degenerative change of the first carpometacarpal joint. Normal mineralization. Normal soft tissues. RAD/Hand Min 3 Views IMPRESSION: Significant degenerative changes as above Electronically Signed: Fernando Oliva DO at 9:08 EDT Tel , Service support , CC: Sade Ocampo MD Netbackup Admin: Signed URGENT CARE VISIT Observed: 12/18/2017 Status: F Source: PAULA REPORT 11:54 AM [facility] REPOSITORY [facility] [address] [place] [address] [address] [place] [address] OFFICE VISIT Date of Service: 12/18/17 MR#: [id number] Acct: [id number] Name: SACHIN LYNN Rep #: [id number] : 1945 Provider: Kyle JIMENEZ Age/Sex: 72/F Location: [facility] Status: Signed Intake Vital Signs12/18/17 Height 5 ft 2 in 12/18/17 Weight: 170 lb 8 oz Intake Visit Reasons: SORE THROAT Ep Technologist Required: No Accompanied by: None Is patient in pain?: No Allergies No Known Allergies Allergy (Unverified 12/18/17 11:08) Medications losartan 100 mg-hydrochlorothiazide 12.5 mg tablet PO 60 Days #60 12/18/17 [History Confirmed 12/18/17] pantoprazole 40 mg tablet,delayed release PO 60 Days #60 12/18/17 [History Confirmed 12/18/17] PFSH Medical History Arthritis (Acute) knee pain (Acute) HTN (hypertension) (Chronic) Surgical History History of hysterectomy (Acute) History of tonsillectomy (Acute) Family History Father Parkinson disease Social History Smoking Status: Never smoker alcohol intake: never HPI HPI Details: SACHIN LYNN, is a 72 F who presents to the office today for sore throat and nasal congestion for the past 2 days. Patient states that her sore throat has been increasingly worsening and describes it as feeling like raw meat. She denies fever, chills, sweats. No known ill contacts. No nausea, vomiting, diarrhea. No other associated symptoms or alleviating/aggravating factors. ROS Const Constitutional: No fever(s), headache(s), anorexia, chills or abnormal sleep pattern ENT ENT: Positive for post nasal drip and sore throat; no headache(s) Resp Respiratory: No shortness of breath Cardio Cardiology: No irregular heart rhythm or palpitations Gastro GI: No nausea/dyspepsia Neuro Neurology: No headache(s) or behavioral changes Psych Psychiatric: No behavioral changes, No abnormal sleep pattern Exam Const General: cooperative, healthy appearing HENMT Head: normal to inspection Ears: hearing grossly normal bilaterally, TM's normal bilaterally Nose: external nose normal, nasal discharge clear Mouth: oral mucosae normal Throat: abnormal tonsil bilaterally Resp Effort AND Inspection: normal respiratory effort Auscultation: Bilateral: Clear to Auscultation Cardio Palpation: normal PMI Rate: regular rate Rhythm: regular rhythm Neuro General: CN's II-XI intact bilaterally Psych Appearance: grossly normal Mental Status: mental status grossly normal Assessment AND Plan Problems 1. Acute pharyngitis, unspecified etiology J02.9 Status Acute Plan A strep test in the office today was negative. Encouraged to get plenty of rest, drink lots of clear liquids, and use Tylenol or Ibuprofen (unless contraindicated) for fever and comfort. Patient also educated on other symptomatic management techniques. To be seen in 7-10 days if no improvement; sooner if worsening of symptoms. Patient advised of potential red flags and when appropriate report to the ED. Patient verbalized understanding of all the above. This note was generated with [facility] dictation software. It may contain incorrect words, spelling, and punctuation that were not noted in checking the note before signing. Coding Level of Care Code Off vis,new,level 3 Diagnoses Acute pharyngitis, unspecified etiology J02.9 Pharyngitis/tonsillitis etiology: unspecified etiology 12/18/17 1154 <Electronically signed by Kyle JIMENEZ> Date Kyle JIMENEZ Cosigner Signature: Date (if applicable) CC: Observed: 12/18/2017 Status: F Source: PAULA CULTURE, R/O STREP A 10:30 AM [facility] REPOSITORY [facility] Culture No Group A Beta Streptococcus isolated. * This cultures intended use is to screen for Beta Streptococcus A only. All other pathogens and potential pathogens will not be screened for or reported. If a complete workup of all potential pathogens is indicated an order for a routine throat culture is required. Performed By: #### M100.010 #### [facility] [address] [place], [address] ALLERGIES ALLERGIES DATE TYPE / CODE NAME / CODE REACTION SEVERITY SOURCE 11/09/2018 Drug clavulanic gi upset [place] Allergy/416 acid/[id number](R Community 351521([facility] ED CT) Repository 11/09/2018 Drug amoxicillin/F0060 gi upset [place] Allergy/416 76886(RXNORM) [facility] 998751([facility] ED CT) Repository 11/09/2018 Drug levofloxacin/F006 gi upset [place] Allergy/416 106889(RXNORM) [facility] 495178([facility] ED CT) Repository 12/18/2017 Drug No Known Unknown [place] Allergy/416 Allergies/G089354 [facility] 421234([facility]ository ENCOUNTERS ENCOUNTERS ADMIT/DISCHARGE ACCOUNT ADMITTING ENCOUNTER LOCATION SOURCE NUMBER CLASS 11/09/2018/ [id number] Ambulatory BMSBuilding:B [place] 9 2 MS.WSA [facility] Repository 10/16/2018 [id number] Ambulatory [place] 3 [facility] Hospital ing:RAD Repository 09/26/2018 1451 Ambulatory Building:[facility] Repository 09/19/2018 [id number] Amb[place] 0 [facility] Hospital ing:US Repository 09/03/2018 [id number] Ambulatory [place] 3 [facility] Hospital ing:MTLAB Repository 05/24/2018 [id number] Ambulatory [place] 1 [facility] Hospital ing:MTRAD Repository 05/08/2018 [id number] Ambulatory [place] 1 [facility] Hospital ing:CVS Repository 04/30/2018 [id number] Ambulatory [place] 1 [facility] Hospital ing:ONC Repository 04/24/2018 [id number] Ambulatory [place] 9 [facility] ing:OPBD Repository 04/18/2018 [id number] Ambulatory BMSBuilding:B [place] 1 MS.CF.G [facility] Repository 04/17/2018 [id number] Ambulatory [place] 6 [facility] ing:CT Repository 04/09/2018 [id number] Ambulatory [place] 9 [facility] ing:OPBI Repository 01/30/2018 [id number] Ambulatory [place] 4 [facility] ing:RAD.FUTUR Repository E 12/18/2017 [id number] Ambulatory [place] 3 [facility] ing:LABSPEC Repository 12/18/2017/ [id number] Ambulatory BMSBuilding:B [place] 8 2 MS.NOW [facility] Repository PAYERS PAYERS ENCOUNTER GUARANTOR PAYER SUBSCRIBER SOURCE 11/09/2018 SACHIN J Primary SACHIN J [place] [id number] Insurance:MEDICARE [place]: Community DIANA PART A [facility] [id number] Number: Repository [address]Wro: 330 [id number] [phone] (HP) Date:2018-10-17 11/09/2018 Secondary SACHIN J [place] Insurance:AETNA [place]: Community [facility] [id number] Hospital Number: Repository [id number] Date:9679-13-96BYHGC SENIOR SUPPLEMENT [address] [place] [address]OJ: 11/09/2018 Tertiary NOT GIVENUNK [place] Insurance:SELF PAY [facility] Number: Effective Repository Date:2018-11-07 10/16/2018 KACEY Barbosa Primary SACHIN J [place] [id number] Insurance:MEDICARE GRE[place]: Community DIANA PART A [facility] [id number] Number: Repository [id number]: [phone] [id number] [phone] (HP) Date:2018-09-26 10/16/2018 Secondary SACHIN J [place] Insurance:AETNA SR GREENDOB: Community SUPPLEMENT [facility] [id number] Hospital Number: Repository [id number] Date:5236-97-62BGPHK SENIOR SUPPLEMENT [address] [address], [place] [address]AM: 10/16/2018 Tertiary NOT GIVENUNK [place] Insurance:SELF PAY [facility] Number: Effective Repository Date:2018-09-26 09/26/2018 SACHIN J Primary SACHIN J OHIP Practices GREENDOB: Insurance:MedicarePol GREENDOB: Repository icy Number: [id number] Diana [id number] 2 [place], [place] Date:0708-53-70Nqfm [place], [place] [address]Mjh: (616) Name:[facility] [address]Eyp: 041414Vuttqjdj, [place] [phone] (HP) (HP)Tel: [phone]: [phone] 09/26/2018 Secondary SACHIN J OHIP Practices Insurance:Aetna/mcare GREENDOB: Repository supplement [facility] [id number] Number: 2 [place] [id number] [place], [place] Date:7807-33-00Vsdi [address]Gda: Name:[address] [place] [address] 30 (HP) [id number]: 09/19/2018 KACEY Barbosa Primary SACHIN J [place] [id number] Insurance:MEDICARE GRE[place]OB: Community DIANA PART A olicy [id number] Number: Repository [id number]: [phone] [id number] [phone] (HP) Date:2018-09-11 09/19/2018 Secondary SACHIN J [place] Insurance:AETNA SR GREENDOB: Community [facility] [id number] Hospital Number: Repository [id number] Date:8953-71-64DLTSX SENIOR SUPPLEMENT [address] [address], [place] [address]NU: 09/19/2018 Tertiary NOT GIVENUNK [place] Insurance:SELF PAY Community INSURANCEPolicy Hospital Number: Effective Repository Date:2018-09-11 09/03/2018 KACEY Barbosa Primary SACHIN J [place] [id number] Insurance:MEDICARE GRE[place]OB: Community DIANA PART A [facility] [id number] Number: Repository [address]Pul: 330 [id number] [phone] (HP) Date:2018-09-03 09/03/2018 Secondary SACHIN J [place] Insurance:AETNA SR GREENDOB: Community SUPPLEMENT INSPolicy [id number] Hospital Number: Repository [id number] Date:1093-18-61SWWRS SENIOR SUPPLEMENT [address] [place] [address]RY: 09/03/2018 Tertiary NOT GIVENUNK [place] Insurance:SELF PAY [facility] Number: Effective Repository Date:2018-09-03 05/24/2018 KACEY Barbosa Primary SACHIN J [place] [id number] Insurance:MEDICARE GRE[place]OB: Community DIANA PART A [facility] [id number] [facility] Number: Repository [address]Zmb: 330 [id number] [phone] (HP) Date:2018-05-24 05/24/2018 Secondary SACHIN J [place] Insurance:AETNA SR GRE[place]OB: Community SUPPLEMENT [facility] [id number] Hospital Number: Repository [id number] Date:7590-62-34SQCSA SENIOR SUPPLEMENT [address] [place] [address]IE: 05/24/2018 Tertiary NOT GIVENUNK [place] Insurance:SELF PAY [facility] Number: Effective Repository Date:2018-05-24 05/08/2018 KACEY Barbosa Primary NOT GIVENUNK [place] [id number] Insurance:SELF PAY Community DIANA [facility] Number: Effective Repository [id number]: 330) Date:2018-05-01 [phone] ([phone] 04/30/2018 KACEY Barbosa Primary SACHIN J [place] [id number] Insurance:MEDICARE GRE[place]OB: Community DIANA PART A [facility] [id number] Regional [facility] Number: Repository [address]Zqk: 330 [id number] [phone] (HP) Date:2018-04-27 04/30/2018 Secondary SACHIN J [place] Insurance:AETNA SR GREENDOB: Community SUPPLEMENT INSPolicy [id number] Hospital Number: Repository [id number] Date:7913-45-43IMNCZ SENIOR SUPPLEMENT [address] [address], [place] [address]UC: 04/30/2018 Tertiary NOT GIVENUNK [place] Insurance:SELF PAY [facility] Number: Effective Repository Date:2018-04-27 04/24/2018 KACEY Barbosa Primary SACHIN J [place] [id number] Insurance:MEDICARE GRE[place]OB: Community DIANA PART A [facility] [id number] [facility] [place] Number: Repository [address]Zoe: 330 [id number] [phone] (HP) Date:2018-04-06 04/24/2018 Secondary SACHIN J [place] Insurance:AETNA SR GREENDOB: Community SUPPLEMENT INSPolicy [id number] Hospital Number: Repository [id number] Date:2015-06-40BKQDR SENIOR SUPPLEMENT [address] [address], [place] [address]BI: 04/24/2018 Tertiary NOT GIVENUNK [place] Insurance:SELF PAY [facility] Number: Effective Repository Date:2018-04-06 04/18/2018 KACEY Barbosa Primary SACHIN J [place] [id number] Insurance:MEDICARE GRE[place]OB: Community DIANA PART A [facility] [id number] Regional [facility] Number: Repository [address]Voj: [phone]) [id number] [phone] (HP) Date:2018-04-06 04/18/2018 Secondary SACHIN J [place] Insurance:AETNA SR GREENDOB: Community SUPPLEMENT [facility] [id number] Hospital Number: Repository [id number] Date:2303-18-23CMEGI SENIOR SUPPLEMENT [address] [address], [place] [address]BF: 04/18/2018 Tertiary NOT GIVENUNK [place] Insurance:SELF PAY [facility] Number: Effective Repository Date:2018-04-18 04/17/2018 KACEY Barbosa Primary SACHIN J [place] [id number] Insurance:MEDICARE GRE[place]OB: Community DIANA PART A [facility] [id number] [facility] Number: Repository [address]Qxq: [phone] [id number] [phone] (HP) Date:2018-04-06 04/17/2018 Secondary SACHIN J [place] Insurance:AETNA SR GREENDOB: Community SUPPLEMENT [facility] [id number] Hospital Number: Repository [id number] Date:6922-32-10ACTXR SENIOR SUPPLEMENT [address] [place] [address]QQ: 04/17/2018 Tertiary NOT GIVENUNK [place] Insurance:SELF PAY [facility] Number: Effective Repository Date:2018-04-06 04/09/2018 KACEY Barbosa Primary SACHIN J [place] [id number] Insurance:MEDICARE GREENDOB: Community DIANA PART A [facility] [id number] [facility] [place] Number: Repository [address]Smy: 330 [id number] [phone] () Date:2018-03-16 04/09/2018 Secondary SACHIN J [place] Insurance:AETNA SR GREENDOB: Community SUPPLEMENT [facility] [id number] Hospital Number: Repository [id number] Date:4815-93-86AIHWL SENIOR SUPPLEMENT [address] [place] [address]CS: 04/09/2018 Tertiary NOT GIVENUNK [place] Insurance:SELF PAY [facility] Number: Effective Repository Date:2018-03-16 01/30/2018 KACEY Barbosa Primary SACHIN J [place] [id number] Insurance:MEDICARE GRE[place]OB: Community DIANA PART A [facility] [id number] Regional [facility] Number: Repository [address]Ysm: [phone]) [id number] [phone] (HP) Date:2018-01-30 01/30/2018 Secondary SACHIN J [place] Insurance:AETNA SR GREENDOB: Community SUPPLEMENT INSPolicy [id number] Hospital Number: Repository [id number] Date:1091-24-55XDWBS SENIOR SUPPLEMENT [address] [address]XTUQMRF, [place] [address]XX: 01/30/2018 Tertiary NOT GIVENUNK [place] Insurance:SELF PAY [facility] Number: Effective Repository Date:2018-01-30 12/18/2017 KACEY Barbosa Primary SACHIN J [place] [id number] Insurance:MEDICARE GREENDOB: Community DIANA PART A [facility] [id number] Number: Repository [address]Xrm: 330 [id number] [phone] () Date:2017-12-18 12/18/2017 Secondary SACHIN J [place] Insurance:AETNA SR GREENDOB: Community SUPPLEMENT [facility] [id number] Hospital Number: Repository [id number] Date:2650-53-07QJZYL SENIOR SUPPLEMENT [address] [address], [place] [address]BZ: 12/18/2017 Tertiary NOT GIVENUNK [place] Insurance:SELF PAY [facility] Number: Effective Repository Date:2017-12-18 12/18/2017 KACEY Barbosa Primary SACHIN J [place] [id number] Insurance:MEDICARE GREENDOB: Community DIANA PART A [facility] [id number], [place] Number: Repository [address]Cyn: 330 [id number] [phone] (HP) Date:2017-12-18 12/18/2017 Secondary SACHIN J [place] Insurance:AETNA SR GREENDOB: Community SUPPLEMENT [facility] [id number] Hospital Number: Repository [id number] Date:2897-38-37LKRYN SENIOR SUPPLEMENT [address] [address]TMMTSAIZ[place], [place] [address]JE: 12/18/2017 Tertiary NOT GIVENUNK [place] Insurance:SELF PAY [facility] Number: Effective Repository Date:2017-12-18
--- OUTSIDE RECORDS SUMMARY | 2019-01-17 14:51 | XMS RPT_ITS | Continuity of Care Document ---
:1945 Author Organization [facility] Address [address] [facility] [address] [place] [address] Phone Care Team Providers Name Role Phone [...] annual wellness exam (Z00.00, V70.0) Comments: 04/06/18 [facility]. colonoscopy 6-17 3 polyps recheck [...] : 06-Nov-2008 End : 30-Mar-2009 Inactive NYSTATIN, [id number]/GM (External Powder) uad Powder bid to affected [...] : 08-Sep-2016 Inactive Dispense as Written Comments:LEONARDO, ever[employer] gener[employer] Triamcinolone Acetonide 0.5 % External Cream [...] {Tablet} Refills: 6 Ordered:12-Oct-2010 Damaris TERRY, Sade Vasquez MD Start : 12-Oct-2010 End : 12-Oct-2010 [...] OF FACE WITHOUT INFECTION (910.0) Comments: warren mohr fell at movie theater Status: Resolved as [...] 19-Mar-2009 Well woman exam (Z01.419, V72.31) Comments: [facility] BSO bd 2012 good. mamm 7-14 with [...] 19-Sep-2018 Thyroid Result: Comments: See Note; NOTES: [facility] Imaging Services [address] [place] [address] Thyroid MR#: [id number] Acct: [id number] Name: SACHIN SCHUSTER Rep #: [id number] : [birth year] F 72 From: Hugo Ventura MD PCP: Sade Ocampo MD Status: REG CLI Study: Thyroid Date of Exam: 09/19/18 Exam# [id number] Ordering Dr: Sade Ocampo MD STUDY: THYROID [...] MD at 9:15 EST , Service support [phone], CC: Sade Ocampo MD Commercial Sales Consultant: Signed 24-May-2018 Chest PA and Lateral Result: Comments: See Note; NOTES: [facility] Imaging Services [address] [place] [address] Chest PA and Lateral MR#: [id number] Acct: [id number] Name: SACHIN SCHUSTER Rep #: [id number] : 1945 F 72 From: Jose Elias Campbell MD PCP: Sade Ocampo MD Status: REG CLI Study: Chest PA and Lateral Date of Exam: 05/24/18 Exam# [id number] Ordering Dr: Teodoro Sanchez MD STUDY: X-RAY [facility] REASON FOR EXAM: Female, 72 years old. [...] CC: Sade Ocampo MD; Teodoro Sanchez MD Commercial Sales Consultant: Signed 30-Apr-2018 PET/CT Tumor Base -Thigh Init Result: Comments: See Note; NOTES: [facility] Imaging Services [address] [place] [address] PET/CT Tumor Base -Thigh Init MR#: [id number] Acct: [id number] Name: SACHIN SCHUSTER Rep # : [id number] : 1945 F 72 From: Walter Monzon DO PCP: Sade Ocampo MD Status: REG CLI Study: PET/CT Tumor Base -Thigh Init Date of Exam: 04/30/18 Exam# [id number] Ordering Dr: Sade Ocampo MD EXAMINATION: FDG [...] Service support , CC: Sade Ocampo MD Commercial Sales Consultant: Signed 24-Apr-2018 Dexa Bone Density Study Result: Comments: See Note; NOTES: [facility] Imaging Services [address] [place] [address] Dexa Bone Density Study MR#: [id number] Acct: [id number] Name: SACHIN SCHUSTER Rep #: [id number] : 1945 F 72 From: Mikey Pierre MD PCP: Sade Ocampo MD Status: REG CLI Study: Dexa Bone Density Study Date of Exam: 04/24/18 Exam# [id number] Ordering Dr: Sade Ocampo MD STUDY: DUAL [...] Mikey Pierre MD at 14:05 EDT Tel [phone], Service support , CC: Sade Ocampo MD Commercial Sales Consultant: Signed 19-Apr-2018 Downtime Report Result: Comments: See Note; NOTES: [facility] Medical Records Department [address] [place] [address] Downtime Report MR#: [id number] Acct: [id number] Name: SACHIN SCHUSTER Rep #: [id number] : 1945 72 From: Donte De Jesus PCP: Damaris TERRY,Sade Status: REG CLI This patient was seen during an EMR downtime April 02, 2018 - April 09, 2018. This patient may have a combination of p aper and electronic documentation or all paper documentation. All documentation is viewable within the e-chart portion of [employer] for each patient visit. 17-Apr-[address] w/CCTA Result: Comments: See Note; NOTES: [facility] Imaging Services [address] [place] [address] w/CCTA MR#: [id number] Acct: [id number] Name: SACHIN SCHUSTER Rep #: [id number] : 1945 F 72 From: Mikey Pierre MD PCP: Sade Ocampo MD Status: REG CLI Study: Limited Chest CT w/CCTA Date of Exam: 04/17/18 Exam# [id number] Ordering Dr: Sade Ocampo MD STUDY: CT [...] Mikey Pierre MD at 15:38 EDT Tel [phone], Service support , CC: Sade Ocampo MD Commercial Sales Consultant: Signed 09-Apr-2018 SCREENING MAMM (CAD), BILAT Result: Comments: See Note; NOTES: [facility] Imaging Services [address] [place] [address] SCREENING MAMM (CAD), BILAT MR#: [id number] Acct: [id number] Name: SACHIN SCHUSTER Rep #: [id number] : 1945 F 72 From: Valentín Gross MD PCP: Sade Ocampo MD Status: REG CLI Study: SCREENING MAMM (CAD), BILAT Date of Exam: 04/09/18 Exam# [id number] Ordering Dr: Sade Ocampo MD MAMM OGRAPHY [...] delay biopsy of a clinically suspicious abnormality. [id number] Electronically Signed: Valentín Gross MD at 14:15 EDT Tel , Service support [phone], CC: Sade Ocampo MD Commercial Sales Consultant: Signed 30-Jan-2018 Hand Min 3 Views Result: Comments: See Note; NOTES: [facility] Imaging Services [address] [place] [address] Hand Min 3 Views MR#: [id number] Acct: [id number] Name: SACHIN SCHUSTER Rep #: [id number] D OB: 1945 F 72 From: Fernando Oliva DO PCP: Sade Ocampo MD Status: REG CLI Study: Hand Min 3 Views Date of Exam: 01/30/18 Exam# [id number] Ordering Dr: Sade Ocampo MD STUDY: X-RAY [...] Service support , CC: Sade Ocampo MD Commercial Sales Consultant: Signed 18-Dec-2017 Urgent Care Visit Report Result: Comments: See Note; NOTES: [address] [place] [address] OFFICE VISIT Date of Service: 12/18/17 MR#: [id number] Acct: [id number] Name: SACHIN SCHUSTER p #: [id number] : 1945 Provider: Kyle JIMENEZ Age/Sex: 72/F Location: [facility] Status: Signed Intake Vital Signs12/18/17 Height 5 ft 2 in 12/18/17 Weight: 170 lb 8 oz 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 This note was generated with [employer] software. It may contain incorrect words, spelling, and punctuation that were not noted in checking the note before signing. Coding Level of Care Code Off vis,new,level 3 Diagnoses Acute ph aryngitis, unspecified etiology J02.9 Pharyngitis/tonsillitis etiology: unspecified etiology 12/18/17 1154 <Electronically signed by Kyle JIMENEZ> Date Kyle IJMENEZ Cosigner Signature: Date (if applicable) CC: 12-May-2017 Hip 2-3 Views with Pelvis Result: Comments: See Note; NOTES: [facility] Imaging Services [address] [place] [address] Verdana 4d Hip 2-3 Views with Pelvis MR#: [id number] Acct: [id number] Name: SACHIN SCHUSTER Rep #: [id number] : 1945 F 71 From: Mikey Pierre MD PCP: Sade Ocampo MD Status: REG CLI Study: Hip 2-3 Views with Pelvis Date of Exam: 05/12/17 Exam# [id number] Ordering Dr: Kodi Ocampo MD STUDY: X-RAY [...] Mikey Pierre MD at 12:44 EDT Tel [phone], Service support , CC: Sade Ocampo MD Commercial Sales Consultant: Signed 12-May-2017 L/S Spine Min 4 Views Result: Comments: See Note; NOTES: [facility] Imaging Services [address] [place] [address] Verdana 4d L/S Spine Min 4 Views MR#: [id number] Acct: [id number] Name: SACHIN SCHUSTER Rosana Gardner p #: [id number] : 1945 F 71 From: Mikey Pierre MD PCP: Sade Ocampo MD Status: REG CLI Study: L/S Spine Min 4 Views Date of Exam: 05/12/17 Exam# [id number] Ordering Dr: Sade Ocampo MD STUDY: X-RAY [...] Pierre MD a t 12:43 EDT Tel [phone], Service support , CC: Sade Ocampo MD Commercial Sales Consultant: Signed 29-Mar-2017 Breast Limited Unilateral Result: Comments: See Note; NOTES: [facility] Imaging Services [address] [place] [address] [place] [address] 4d Breast Limited Unilateral MR#: [id number] Acct: [id number] Name: SACHIN SCHUSTER Rep #: [id number] : 1945 F 71 From: Mikey Pierre MD PCP: Sade Ocampo MD Status: REG CLI Study: Breast Limited Unilateral Date of Exam: 03/29/17 Exam# [id number] Ordering Dr: Kodi Ocampo MD STUDY: ULTRASOUND [...] Mikey Pierre MD at 15:51 EDT Tel [phone], Service support , CC: Sade Ocampo MD Commercial Sales Consultant: Signed 22-Mar-2017 SCREENING MAMM (CAD), BILAT Result: Comments: See Note; NOTES: [facility] Imaging Services [address] [place] [address] Verdana 4d SCREENING MAMM (CAD), BILAT MR#: [id number] Acct: [id number] Name: HELLEN SCHUSTER Rep #: [id number] : 1945 F 71 From: Mikey Pierre MD PCP: Sade Ocampo MD Status: REG CLI Study: SCREENING MAMM (CAD), BILAT Date of Exam: 03/22/17 Exam# [id number] Ordering Dr: Sade Ocampo MD MAMMOGRAPHY - [...] delay biopsy of a clinically suspicious abnormality. [id number] Electronically Signed: Mikey Pierre MD at 8:05 EDT Tel [phone], Service support , CC: Sade Ocampo MD Commercial Sales Consultant: Signed 21-Jun-2016 PT D/C Summary (1) Result: Comments: See Note; NOTES: [facility] Physical Therapy [facility] [address] [place] [address]. 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 Thank you for the referral of this patient. Sincerely, An carmel Cunningham <Electronically signed by Dora DODSON> 06/21/16 7822 CC: RADHA COTTRELL; Sade Ocampo MD; OUT OF TOWN DOCTOR Signed 25-May-2016 Re-Evaluation - PT (1) Result: Comments: See Note; NOTES: [facility] Physical Therapy [facility] [facility] [place], [place] [address] Fax REEVALUATION / ME DEMI RECERTIFICATION [place] 4d PHYSICAL THERAPY MR#: [id number] Acct: [id number] Name: SACHIN SCHUSTER Rep #: [id number] : 1945 70 From: Dora DODSON Referring DrHien: OUT OF TOWN DOCTOR Status: REG RCR Insurance: MEDICARE PART A B AETNA Out of [facility] Doctor, RADHA COTTRELL It has [...] do not hesitate to contact me at [phone] by phone or if you have questions or concerns regarding this new plan of care! Sincerely, Dora Cunningham <Electronically signed by Dora Cunningham MPT> 05/25/16 191 CC: RADHA COTTRELL; Sade Ocampo MD; OUT OF [facility] DOCTOR Signed For Medicare only, by signing this I certify the pl an of care. Physicians Signature Date 29-Apr-2016 Inital Evaluation (1) - PT Result: Comments: See Note; NOTES: [facility] Physical Therapy [facility] [address] [facility] [place], [place] [address] Fax REHABILITATION RVICES INITIAL EVALUATION MR#: [id number] Acct: [id number] Name: SACHIN SCHUSTER Rep #: [id number] : 1945 70 From: Dora Cunningham MPT Referring Dr.: OUT OF [facility] DOCTOR Status: REG RCR Insurance: MEDICARE PART A B AETNA Patient's Visit Information SACHIN SCHUSTER is a 70 year old F referred to Physical Therapy by Out [facility] Doctor RADHA COTTRELL with a diagnosis of [...] walking in the house or at the [place] to see her mom. Pt had trouble [...] to be FAXED BACK to us at [phone] for Medicare purposes. Please let me kn [...] Only (Routine) Result: Comments: See Note; NOTES: [facility] Imaging Services [address] [place] [address] Verdana 4d Lower Ext Joint Only (Routine) MR#: [id number] Acct: [id number] Na me: SACHIN SCHUSTER Rep #: [id number] : 1945 F 70 From: Hermann Inman MD PCP: Sade Ocampo MD Status: REG CLI Study: Lower Ext Joint Only (Routine) Date of Exam: 03/09/16 Exam# [id number] O lori Dr: Marck Armendariz STUDY: MRI [...] FACR at 8:04 EDT , Service support [phone], CC: MARCK ARMENDARIZ; Sade Ocampo MD Commercial Sales Consultant: Signed 28-Oct-2015 Bilat Scrn Digital AND CAD Result: Comments: See Note; NOTES: [facility] Imaging Services [address] [place] [address] Verdana 4d Bilat Scrn Digital AND CAD MR#: [id number] Acct: [id number] Name: SACHIN SCHUSTER Rep #: [id number] : 1945 F 69 From: Jose Elias Campbell MD PCP: Sade Ocampo MD Status: REG CLI Study: Bilat Scrn Digital AND CAD Date of Exam: 10/28/15 Exam# [id number] Ordering Dr: Sade Ocampo MD MAMMOGRAPHY - [...] delay biopsy of a clinically suspicious abnormality. [id number] Electronically Betsy d: Elijah Campbell MD at 11:23 EST Tel , Service support [phone], CC: Sade Ocampo MD Commercial Sales Consultant: Signed 28-Oct-2015 Dexa Bone Density Study (HP) Result: Comments: See Note; NOTES: [facility] Imaging Services [address] [place] [address] Verdana 4d Dexa Bone Density Study (HP) MR#: [id number] Acct: [id number] Name : SACHIN SCHUSTER Rep #: [id number] : 1945 F 69 From: Mikey Pierre MD PCP: Sade Ocampo MD Status: REG CLI Study: Dexa Bone Density Study (HP) Date of Exam: 10/28/15 Exam# [id number] Ella staples Dr: Sade Ocampo MD STUDY: [...] Mikey Pierre MD at 8:33 EST Tel [phone], Service support [phone], CC: Sade Ocampo MD Commercial Sales Consultant: Signed 27-Oct-2014 Bilat Scrn Digital AND CAD Result: Comments: See Note; NOTES: [facility] Imaging Services [address] [place] [address] Breast Imaging Report MR#: [id number] Acct: [id number] Name: Leigh Ann SCHUSTER Rep #: [id number] : 1945 F 68 From: Jose Elias Campbell MD PCP: Sade Ocampo MD Status: REG CLI Study: Bilat Scrn Digital AND CAD Date of Exam: 10/27/14 Exam# [id number] Ordering Dr: Sade Ocampo MD MAMM OGRAPHY [...] Elijah Campbell MD at 14:42 EST Tel [phone], Service supp ort [phone], CC: Sade Ocampo MD Commercial Sales Consultant: Signed 17-Oct-2014 EKG (55115) Comments: see scanned document of test done to see results reviewed today with patient Result: [MEASUREMENTS ANALYSIS] Date of Test: 10/17/2014 10:58:06; Heart Rate: 77; RI Interval: 142; QRS: 96; QT Interval: 382; Corrected QT Interval (QTc): 411; P Wave [place]: 43; QRS Wave [place]: 10; T Wave [place]: -1; Blood Pressure: 120/80 [ECG DIAGNOSTIC STATEMENTS] Date of Test: 10/17/2014 10:58:06; Summary: Sinus Rhythm WITHIN NORMAL LIMITS 21-May-2014 Breast Unilateral Result: Comments: See Note; NOTES: [facility] Imaging Services [address] [place] [address] Ultrasound Report MR#: [id number] Acct: [id number] Name: Leigh Ann SCHUSTER Rep #: [id number] : 1945 F 68 From: Valentín Gross MD PCP: Sade Ocampo MD Status: REG CLI Study: Breast Unilateral Date of Exam: 05/21/14 Exam# [id number] Ordering Dr: Teodoro Humphries MD STUDY: ULTRAS [...] at 17:35 EDT Tel , Service support [phone], CC: Sade Ocampo MD; Teodoro Humphries MD Commercial Sales Consultant: Signed 25-Feb-2014 Upper Ext Joint Only(Routine) Result: Comments: See Note; NOTES: [facility] Imaging Services [address] [place] [address] MRI Report MR#: [id number] Acct: [id number] Name: Leigh Ann SCHUSTER Rep #: [id number] : 1945 F 68 From: Hossein Matos MD PCP: Sade Ocampo MD Status: REG CLI Study: Upper Ext Joint Only(Routine) Date of Exam: 02/25/14 Exam# [id number] Ordering Dr: Christian Beard DO STUDY: MRI [...] MD at 11:58 EDT , Service support [phone], CC: Sade Ocampo MD; Christian Beard Commercial Sales Consultant: Signed 14-Feb-2014 Shoulder min 2 Views Result: Comments: See Note; NOTES: [facility] Imaging Services [address] [place] [address] Radiology Report MR#: [id number] Acct: [id number] Name: Leigh Ann SCHUSTER Rep #: [id number] : 1945 F 68 From: Mikey Pierre MD PCP: Sade Ocampo MD Status: REG CLI Study: Shoulder min 2 Views Date of Exam: 02/14/14 Exam# [id number] Ordering Dr: Christian Beard DO STUDY: X [...] Mikey Pierre MD at 14:06 EDT Tel [phone], Service support [phone], 0055 RAD/Shoulder min 2 Views IMPRESSION: Degenerative changes of the acromioclavicular joint. Electronically Signed: Mikey Pierre MD at 14:06 EDT Tel [phone], Service support [phone], CC : Sade Ocampo MD; Christian Beard Commercial Sales Consultant: Signed 16-Oct-2013 Breast Unilateral Result: Comments: See Note; NOTES: [facility] Imaging Services [address] [place] [address] Ultrasound Report MR#: [id number] Acct: [id number] Name: Leigh Ann SCHUSTER Rep #: [id number] : 1945 F 67 From: Mikey Pierre MD PCP: Sade Ocampo MD Status: REG CLI Study: Breast Unilateral Date of Exam: 10/16/13 Exam# [id number] Ordering Dr: Sade Ocampo MD STUDY: ULT [...] M.D. at 16:45 EST , Service support [phone], CC: Sade Ocampo MD Commercial Sales Consultant: Signed 11-Oct-2013 Bilat Scrn Digital & CAD Result: Comments: See Note; NOTES: [facility] Imaging Services [address] [place] [address] Breast Imaging Report MR#: [id number] Acct: [id number] Name: Leigh Ann SCHUSTER Rep #: [id number] : 1945 F 67 From: Mikey Pierre MD PCP: Sade Ocampo MD Status: REG CLI Exam# [id number] Ordering Dr: Sade Ocampo MD MAMMOGRAPHY - [...] M.D. 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 Comments: , Amish andimportant SARA schuster [phone] Status: Active No Caffeine Use Status: Active [...] 84 /min Comments: Pattern: Regular Respiration Rate 12039 /min Comments: Pattern: Unlabored O2 SAT 98 [...] Height 0 in Head Circumference 0.00 cm 79-Phc-374352:13 Temperature 98.6 f Comments: Method: Oral Pulse [...] 0.00 cm Results Date Description Value Details :52 Rapid Strep Test, Office (08315) Rapid Strep Test, Office Negative (Normal) :51 FLU A+B DIRECT AG, (RAPID) (80546) FLU A+B DIRECT AG, (RAPID) negative (Normal) 7-Foh-413212:09 LDL, Direct Comments: Comments: [facility] (refer to report for specific site)refer to report for address and phone number; 09-11-18 db COMMENT Test not performed (Normal) LDL,DIR 114645 147 mg/dL (Abnormal) Range: 0-99 Comments: Performed at: [facility] [address] [id number] Director: Steve Carey PhD, Phone: [phone] 1-Gab-288826:09 Triglycerides Comments: Comments: [facility] [address] [place], [address] TRIG 117 mg/dL (Normal) Comments: The drugs N-Acetylcysteine and Metamizole may falselydepress this assay.Serum Triglycerides Reference Interval Normal <150 mg/dL Borderline high 150 - 199 mg/dL High 200 - 499 mg/dL Very High > or = 500 mg/dL 47-Vsl-917178:27 Carcinoembryonic Antigen Comments: [facility] (refer to report for specific site)refer to report for address and phone number CEA 1.4 ng/mL (Normal) Range: 0.0-4.7 Comments: Caroline ECLIA methodology Nonsmokers <3.9 Smokers <5.6Performed at: [facility] [address] [place] [id number] Director: Steve Carey PhD, Phone: [phone] 14-Xlc-805953:27 CRP Comments: [facility] [address] [place], [address] C-REACTIVE PROT 5.31 mg/L (Abnormal) Range: 0.0-3.0 Comments: C-Reactive Protein (CRP) provides useful information for thediagnosis, therapy and monitoring of inflammatory processesand associated diseases. For the evaluation of Relative Riskfor Cardiovascular Dise ase, a High Sensitivity CRP (HSCRP)should be ordered. :27 Erythrocyte Sed Rate Comments: [facility] [address] [place], [address] SED RATE 3 mm/h (Normal) Range: 0-30 :27 URINE HISTOPLASMA ANTIGEN Comments: [facility] (refer to report for specific site)refer to report for address and phone number UR Comments: TEST RESULT LIMITSHistoplasma Gal'krys Ag Ur <0.5 <0.5 ng/mLDisclaimer: This test was developed and its performance characteristics determined by [facility]) [facility]. It has not been cleared or approved by the Food and Drug Administration. TESTING PERFORMED AT [facility]. ORIGINAL REPORT ON FILE IN [facility] CONTAINS ADDITIONAL TEST SITE INFORMATION. 3-Feh-811596:26 Metabolic Panel, Basic (00675) Comments: PATIENT NOT FASTINGPERFORMED BY: [facility] [address] [place] [id number] Calcium 10.0 mg/dL (Normal) Range: 8.7-10.3 Carbon [...] 8-27 Glucose 113 mg/dL (Abnormal) Range: 65-99 46-Nnb-536999:23 Metabolic Panel, Comprehensive Comments: PATIENT NOT FASTINGPERFORMED BY: [facility] HospitalRbdzmz6809 [facility] [id number] (72064) ALT (SGPT) 23 [iU]/L (Normal) Range: 0-32 [...] 8-27 Glucose 94 mg/dL (Normal) Range: 65-99 10-Mip-746618:23 CBC WITH MANUAL DIFF Comments: PATIENT NOT FASTINGPERFORMED BY: [facility] HospitalQbnyij9896 [facility] [id number] Information: NURSE DRAW; fu DB 6-8 (59307) Immature Grans (Abs) 0.0 {x10E3/uL} (Normal) Range: [...] 3.77-5.28 WBC 3.2 {x10E3/uL} (Abnormal) Range: 3.4-10.8 37-Ned-927192:23 MICROALBUMIN: CREATININE RATIO Comments: PATIENT NOT FASTINGPERFORMED BY: [facility] HospitalBqzvyt9845 [facility] [id number] (24244) AND (73314) Alb/Creat Ratio 5.3 {mg/g_creat} (Normal) Range: 0.0-30.0 Albumin, Urine 3.7 ug/mL (Normal) Creatinine, Urine 70.0 mg/dL (Normal) 49-Gbl-652295:23 URINALYSIS (41455) Comments: PATIENT NOT FASTINGPERFORMED BY: [facility] [id number] Microscopic Examination MICNIP (Normal) Comments: Microscopic not indicated and not performed. Nitrite, Urine Negative (Normal) Urobilinogen,Semi-Qn 0.2 mg/dL (Normal) Range: 0.2-1.0 Bilirubin Negative (Normal) Occult Blood Negative (Normal) Ketones Negative (Normal) Glucose Negative (Normal) Protein Negative (Normal) WBC Esterase Negative (Normal) Appearance Clear (Normal) Urine-Color Yellow (Normal) pH 6.5 (Normal) Range: 5.0-7.5 Specific [place] 1.018 (Normal) Range: 1.005-1.030 51-Ltj-742224:30 Culture, R/O Strep A Comments: [facility] [address] [place], [address] CUSTREPA See Note (Normal) Comments: AVERY CultureNo Group A Beta Streptococcus isolated. * This cultures intended use is to screen for Beta Streptococcus A only. All other pathogens and potential pathogens will not be screened for or rep orted. If a complete workup of all potential pathogens is indicated an order for a routine throat culture is required. 5-Ixw-591156:10 ANTINUCLEAR ANTIBODIES DIRECT Comments: [facility] (refer to report for specific site)refer to report for address and phone number MILTON-DIRECT Negative (Normal) Comments: Performed at: [address] [id number] Director: Steve Carey PhD, Phone: [phone] 8-Mzz-986298:10 Ferritin Comments: [facility] [address] [place], [address] FERRITIN 251 ng/mL (Normal) Range: 8-252 57-Mvz-701030:40 Methymalonic Acid, Serum Comments: today; PATIENT NOT FASTINGPERFORMED BY: [address] [id number] BY: [facility] HospitalKpdgas5611 [facility] [id number] (19196) Methylmalonic Acid, Serum 198 nmol/L (Normal) Range: 0-378 27-Bvq-144893:40 Vitamin B-12 Comments: today; PATIENT NOT FASTINGPERFORMED BY: [facility]1447 [facility] [id number] BY: [facility] HospitalEwkcxl2559 [facility] [id number] (cyanocobalamin) (23186) Vitamin B12 353 pg/mL (Normal) Range: 211-946 39-Uwv-967590:23 HEPATITIS C ANTIBODY Comments: PATIENT NOT FASTINGPERFORMED BY: [facility] HospitalQcynbk1184 [facility] [id number] Information: NURSE DRAW (48004) Hep C Virus Ab <0.1 {s/co_ratio} (Normal) Range: 0.0-0.9 Comments: Negative: < 0.8 Indeterminate: 0.8 - 0.9 Positive: > 0.9 . The CDC recommends that a positive HCV antibody result be followed up with a HCV Nucleic Acid Amplification test (330559). :57 Alanine Aminotransferas (SGPT) Comments: DR.CHARLICK VERDIN.[facility] [address] [place], [address] ALT 32 U/L (Normal) Range: 12-78 :57 ALB/GLOB Ratio Comments: DR.CHARLICK VERDIN.[facility] [address] [place], [address] A/G 1.2 {RATIO} (Normal) Range: 0.9-2.4 :57 Albumin, Serum Comments: DR.CHARLICK VERDIN.[facility] [address] [place], [address] ALB 3.7 g/dL (Normal) Range: 3.4-5.0 :57 Alkaline Phosphatase Comments: DR.CHARLICK VERDIN.[facility] [address] [place], [place], [address] ALK P 93 U/L (Normal) Range: 50-136 :57 AST(SGOT) Comments: DR.CHARLICK VERDIN.[facility] [address] [place], [place], [address] AST 22 U/L (Normal) Range: 15-37 :57 Basic Metabolic Profile (BMP) Comments: DR.CHARLICK VERDIN.[facility] [address] [place], [place], [address] GAP 8 (Normal) Range: 5-15 CO2 26.0 [...] Range: 70-110 :57 Bilirubin, Total Comments: DR.CHARLICK VERDIN.[facility] [address] [place], [place], [address] T BILI 0.50 mg/dL (Normal) Range: 0.20-1.00 :57 Globulin Comments: DR.CHARLICK VERDIN.[facility] [address] [place], [address] GLOB 3.1 g/dL (Normal) Range: 2.3-3.5 :57 Lipid Profile Comments: DR.CHARLICK VERDIN.[facility] [address] [place], [address] VLDL 17 mg/dL (Normal) Range: 5-40 LDL [...] High Risk :57 Protein, Total Comments: DR.CHARLICK VERDIN.[facility] [address] [place], [address] T PROT 6.8 g/dL (Normal) Range: 6.4-8.2 :57 Thyroid Stim Hormone (TSH) Comments: [facility] [address]ud[address] [place], [address] TSH 1.36 {uIU/mL} (Normal) Range: 0.358-3.74 16-Mrj-305366:40 Rapid Flu (63652 x 2) Comments: neg Influenza A Ag negative (Normal) 99-Fnd-24331:47 CBC W/Diff, Automated Comments: [facility] [address] [place], [address] ; [address] Absolute Lymph [...] 4.2-5.4 WBC 3.5 K/mm3 (Abnormal) Range: 4.4-11.0 83-Eue-18499:47 Comprehensive Metabolic Profil Comments: [facility] [address] [place], [address] GAP 9 (Normal) Range: 5-15 CO2 25.0 [...] (Normal) Range: 70-110 :47 Lipid Profile Comments: [facility] V[address]ocds[address]du[address]92 [facility]. [place], [place], [address] VLDL 28 mg/dL (Normal) Range: 5-40 LDL [...] Risk :47 Thyroid Stim Hormone (TSH) Comments: [facility] Y[address]qu[address] [facility]. [place], [place], [address] TSH 1.13 {uIU/mL} (Normal) Range: 0.358-3.74 :47 Vitamin D,25 Hydroxy Comments: [facility] Ingby[address] [facility]. [place], [place], [address] Vitamin D 25-OH 41.2 ng/mL (Normal) Comments: Vitamin D 25(OH) Status Range Deficiency <20 ng/mL (50nmol/L) Insuffciency 20 - 30 ng/mL (50 - 75 nmol/L) Sufficiency 30 - 100 ng/mL (75 - 250 nmol/L) Toxicity >100 ng/mL (>250 nmol/L) 0-Aic-577998:53 URINALYSIS (96834) Comments: PATIENT NOT FASTINGPERFORMED BY: LabCoLeslie [facility] [id number] [facility] [id number] Information: [id number] Microscopic Examination MICNIP (Normal) Comments: Microscopic not indicated and not performed. Nitrite, Urine Negative (Normal) Urobilinogen,Semi-Qn 0.2 mg/dL (Normal) Range: 0.0-1.9 Bilirubin Negative (Normal) Occult Blood Negative (Normal) Ketones Negative (Normal) Glucose Negative (Normal) Protein Negative (Normal) WBC Esterase Negative (Normal) Appearance Clear (Normal) Urine-Color Yellow (Normal) pH 7.5 (Normal) Range: 5.0-7.5 Specific [place] 1.015 (Normal) Range: 1.005-1.030 0-Dhi-460671:53 URINE LIBBY CULTURE-IDENTIFICATN Comments: PATIENT NOT FASTINGPERFORMED BY: [facility] Sdzpll8041 [facility] [id number] ([id number]) Result 1 NG36 (Normal) Comments: No growth in 36 - 48 hours. Urine Culture,Comprehensive Final report (Normal) 64-Jwk-33321:22 CBC W/Diff, Automated Comments: Test performed at:[facility] [address] [facility] [address] Absolute Lymph 1.45 {X10_3/ul} (Normal) [...] 4.2-5.4 WBC 4.7 K/mm3 (Normal) Range: 4.4-11.0 14-Zxk-05688:22 Comprehensive Metabolic Profil Comments: Test performed at:[facility] [address] [place] [address] GAP 6 (Normal) Range: 5-15 CO2 28.0 [...] 70-110 :22 Lipid Profile Comments: Test performed at:[facility] [address] [place] [address] VLDL 27 mg/dL (Normal) Range: 5-40 LDL [...] :22 Microalb:Creat Ratio,Random UR Comments: Test performed at:[facility] [address] [place] [address] MALB:CREAT 7.1 {mg/g_CRE} (Normal) MICROALBUMIN,UR 18.2 mg/L (Normal) UR CREAT 256.0 mg/dL (Normal) :22 Urinalysis, Complete Comments: How was Urine Obtained? CLEAN CATCHTest performed at:[facility] [address] [place] [address] CA OX CRYSTAL 1+ {/hpf} [...] CLARITY Sl. Cloudy (Normal) COLOR Yellow (Normal) 70-Sjq-03774:22 Vitamin D,25 Hydroxy Comments: Test performed at:[facility] [address] [place] [place], [place] [address] Vitamin D 25-OH 44.6 ng/mL (Normal) Comments: Vitamin D 25(OH) Status Range Deficiency <20 ng/mL (50nmol/L) Insuffciency 20 - 30 ng/mL (50 - 75 nmol/L) Sufficiency 30 - 100 ng/mL (75 - 250 nmol/L) Toxicity >100 ng/mL (>250 nmol/L) 26-Hae-650592:55 CBCD ANC 2.4 {X10_3/uL} (Normal) Range: 2.0-7.7 [...] 7-18 GLU 94 mg/dL (Normal) Range: 70-110 :55 UA Comments: How was Urine Obtained? CLEAN CATCH ANA 100 /ul (Abnormal) UOB 10 /ul (Abnormal) PRATEEK Negative (Normal) UROBU Normal mg/dL (Normal) VASQUEZ 6.0 (Normal) Range: 5.0 - 8.0 uPROTU Negative mg/dL (Normal) SGU 1.020 (Normal) Range: 1.002-1.030 KETU Negative mg/dL (Normal) BILIU Negative mg/dL (Normal) GLUR Normal mg/dL (Normal) UCLAR Clear (Normal) UCOL Yellow (Normal) 16-Tdl-463782:23 Microscopic Examination Comments: PATIENT WAS FASTINGPERFORMED BY: LabCoBristol-Myers Squibb Children's HospitalHkvhae7745 [facility] [id number] Bacteria None seen (Normal) Mucus Threads Present (Normal) Epithelial Cells (non renal) 0-10 {/hpf} (Normal) Range: 0 - 10 RBC None seen {/hpf} (Normal) Range: 0 - 3 WBC 0-5 {/hpf} (Normal) Range: 0 - 5 31-Rvo-443051:51 BILAT SCRN DIGITAL & CAD Radiology Report [...] Pierre M.D.October 09, 2012 at 12:29:05 PM [id number] Signed GP/GP If you are the referring physician and would like to consult with theradiologist who provided this interpretation, please contact Santos Chatterjee at [phone]. If this radiologist is unavailable, youwill be directed to another radiologi st to assist. If you are a patient with a question regarding this report, pleasecontactyour referring physician directly. Professional Interpretation Provided By: [employer], Phone ,Fax These documents contain legally protected [...] documents. Dictated on 10/09/12 1152 by Gabby TERRY,Kanchanranscribed on 10/09/12 1234 by ITS IMPORTSign by Mikey Pierre MD on 10/09/12 1235 Si gn by: Mikey Pierre MD 09-Ean-992338:23 URINALYSIS, W/ MICRO (48463) Comments: PATIENT WAS FASTINGPERFORMED BY: Shippable6370 [facility] [id number] Microscopic Examination See below: (Normal) Microscopic Examination MICRON (Normal) Comments: Microscopic follows if indicated. Nitrite, Urine Negative (Normal) Urobilinogen,Semi-Qn 1.0 mg/dL (Normal) Range: 0.0-1.9 Bilirubin Negative (Normal) Occult Blood Negative (Normal) Ketones Negative (Normal) Glucose Negative (Normal) Protein Negative (Normal) WBC Esterase Negative (Normal) Appearance Clear (Normal) Urine-Color Yellow (Normal) pH 7.5 (Normal) Range: 5.0-7.5 Specific [place] 1.021 (Normal) Range: 1.005-1.030 40-Uua-362211:23 MICROALBUMIN: CREATININE RATIO Comments: PATIENT WAS FASTINGPERFORMED BY: [employer] [employer]70 [facility] [id number] ([id number]) AND (44755) Microalb/Creat Ratio 3.0 {mg/g_creat} (Normal) Range: 0.0-30.0 Microalbumin, Urine 2.5 ug/mL (Normal) Range: 0.0-17.0 Creatinine, Urine 82.1 mg/dL (Normal) Range: 15.0-278.0 99-Zix-857116:23 METABOLIC PANEL, COMPREHENSIVE Comments: PATIENT WAS FASTINGPERFORMED BY: LabCoBristol-My[facility] Squibb Children's HospitalKofjzu0098 [facility] [id number] ([id number]) ALT (SGPT) 29 [iU]/L (Normal) Range: 0-32 [...] Glucose, Serum 93 mg/dL (Normal) Range: 65-99 08-Evl-483071:23 LIPID PANEL (97625) Comments: PATIENT WAS FASTINGPERFORMED BY: CloudVerticalBristol-Myers Squibb Children's HospitalJyzbwc2927 [facility] [id number] LDL/HDL Ratio 3.0 {ratio_units} (Normal) Range: 0.0-3.2 LDL Cholesterol Calc 145 mg/dL (Abnormal) Range: 0-99 HDL Cholesterol 49 mg/dL (Normal) Comments: According to ATP-III Guidelines, HDL-C >59 mg/dL is considered anegative risk factor for CHD. VLDL Cholesterol Brayden 22 mg/dL (Normal) Range: 5-40 Triglycerides 110 mg/dL (Normal) Range: 0-149 Cholesterol, Total 216 mg/dL (Abnormal) Range: 100-199 88-Dqq-877254:23 CBC WITH MANUAL DIFF Comments: PATIENT WAS FASTINGPERFORMED BY: CloudVerticalBristol-Myers Squib[facility] Children's HospitalWxsxas0739 [facility] [id number] Information: [id number] (91826) Immature Grans (Abs) 0.0 {x10E3/uL} (Normal) Range: [...] 3.77-5.28 WBC 3.6 {x10E3/uL} (Abnormal) Range: 4.0-10.5 7-Nwb-528617:23 KNEE,4 OR MORE VIEWS Radiology Report See [...] radiologist regarding this report, please call our 22V4gbvgqve line @ Dictated on 12/30/11 1234 by WALTER KAY MDTranscribed on 12/30/11 1655 by ITS IMPORTSign by WALTER KAY MD on 12/30/11 1656 Sign by: WALTER KAY MD 48-Wtj-505935:59 Microscopic Examination Comments: PATIENT WAS FASTINGPERFORMED BY: [employer]70 [facility] [id number] Bacteria None seen (Normal) Mucus Threads Present (Normal) Epithelial Cells (non renal) 0-10 {/hpf} (Normal) Range: 0 - 10 RBC 0-3 {/hpf} (Normal) Range: 0 - 3 WBC 0-5 {/hpf} (Normal) Range: 0 - 5 57-Jjo-368840:59 URINALYSIS, W/ MICRO (14163) Comments: PATIENT WAS FASTINGPERFORMED BY: Sparkplay Mediaox RoadDublin [place] [id number] Microscopic Examination See below: (Normal) Microscopic Examination MICRON (Normal) Comments: Microscopic follows if indicated. Nitrite, Urine Negative (Normal) Urobilinogen,Semi-Qn 0.2 mg/dL (Normal) Range: 0.0-1.9 Bilirubin Negative (Normal) Occult Blood Negative (Normal) Ketones Negative (Normal) Glucose Negative (Normal) Protein Negative (Normal) WBC Esterase Negative (Normal) Appearance Clear (Normal) Urine-Color Yellow (Normal) pH 6.0 (Normal) Range: 5.0-7.5 Specific [place] 1.018 (Normal) Range: 1.005-1.030 :59 MICROALBUMIN: CREATININE RATIO Comments: PATIENT WAS FASTINGPERFORMED BY: [facility]6370 [facility] [id number] (58506) AND (19231) Microalb/Creat Ratio 4.3 {mg/g_creat} (Normal) Range: 0.0-30.0 Creatinine, Urine 98.4 mg/dL (Normal) Range: 15.0-278.0 Microalbumin, Urine 4.2 ug/mL (Normal) Range: 0.0-17.0 :59 METABOLIC PANEL, COMPREHENSIVE Comments: PATIENT WAS FASTINGPERFORMED BY: [facility]6370 [facility] [id number] (45915) ALT (SGPT) 29 [iU]/L (Normal) Range: 0-40 [...] Glucose, Serum 99 mg/dL (Normal) Range: 65-99 46-Kbx-774518:59 LIPID PANEL (57487) Comments: PATIENT WAS FASTINGPERFORMED BY: [employer]70 [facility] [id number] LDL/HDL Ratio 3.0 {ratio_units} (Normal) Range: 0.0-3.2 LDL Cholesterol Calc 146 mg/dL (Abnormal) Range: 0-99 VLDL Cholesterol Brayden 20 mg/dL (Normal) Range: 5-40 HDL Cholesterol 48 mg/dL (Normal) Comments: According to ATP-III Guidelines, HDL-C >59 mg/dL is considered anegative risk factor for CHD. Cholesterol, Total 214 mg/dL (Abnormal) Range: 100-199 Triglycerides 102 mg/dL (Normal) Range: 0-149 :59 CBC WITH MANUAL DIFF (88099) Comments: PATIENT WAS FASTINGPERFORMED BY: Shipp[employer]6370 [facility]OnWayNov[facility] [id number] Immature Grans (Abs) 0.0 {x10E3/uL} (Normal) Range: [...] 3.80-5.10 WBC 3.7 {x10E3/uL} (Abnormal) Range: 4.0-10.5 6-Dbv-366855:15 [facility] Radiology Report See Note [...] 10/04/11 1602 Sign by: Mikey Pierre MD 84-Slu-865693:06 BMP Comments: appt 04/12/11 GAP 8 (Normal) [...] (Normal) Comments: Result: NEGATIVE COLOR YELLOW (Normal) 20-Lqa-407649:54 CBCD,SMEAR DIFF RED CELL MORPH SeeNote {NORMAL} [...] 47-70 WBC 3.2 K/mm3 (Abnormal) Range: 4.4-11.0 04-Lzf-816874:54 COMP METABOLIC GAP 12 (Normal) Range: 5-15 [...] CHOL 207 mg/dL (Abnormal) Comments: <200 mg/dL Aszmjzymo780-661 mg/dL Borderline>240 mg/dL High Risk HDL 46 mg/dL (Normal) Comments: Reference RangeHDL <40 mg/dL Low HDL CholesterolHDL >or= 60 mg/dL High HDL Cholesterol LDL 124 mg/dL (Normal) Range: 0-130 TRIG 186 mg/dL (Normal) Comments: Serum Triglycerides Reference IntervalNormal <150 mg/dLBorderline high 150 - 199 mg/dLHigh 200 - 499 mg/ dLVery High > or = 500 mg/dL VLDL 37 mg/dL (Normal) Range: 5-40 61-Yax-820911:54 MICROALB:CRE UR MALB:CREAT <TEST NOT PERFORMED> {mg/g_CRE} (Normal) MICROALBUMIN,UR < 5.0 mg/L (Normal) UR CREAT 27.6 mg/dL (Normal) 7-Xlt-953461:53 BILAT SCRN DIGITAL & CAD Radiology Report See Note (Normal) Comments: Exam Number: [id number] MAMMOGRAM, BILATERAL SCREENING DIGITAL AND CAD HISTORYRoutine [...] werealso examined with computer- aided detection software ([employer], [employer] Reported By: ANANYA ORTIZ M.D. 36-Rka-026627:28 LOWER EXT/JT ONLY (ROUTINE) Radiology Report See Note (Normal) Comments: Exam Number: [id number] CLINICAL:63-year-old female with a 5-week history of [...] mg/dL VLDL 20 mg/dL (Normal) Range: 5-40 50-Rxv-632764:00 BILAT SCRN DIGITAL & CAD Radiology Report See Note (Normal) Comments: Exam Number: [id number] MAMMOGRAM, BILATERAL SCREENING DIGITAL AND CAD HISTORYRoutine [...] mammograms werealso examined with computer-aided detection software ([employer], [employer] Reported By: ANANYA ORTIZ M.D. :51 BMP BUN 18 mg/dL (Normal) Range: 7-18 [...] 3.5-5.1 NA 142 mmol/L (Normal) Range: 136-145 76-Amk-214153:13 Urinalysis, Office (23934) UA - BILIRUBIN Negative (Normal) UA - BLOOD Non Hemolyzed Trace (Normal) UA - GLUCOSE Negative (Normal) UA - KETONES Negative mg/dL (Normal) UA - LEUKOCYTE ESTERASE Trace (Normal) UA - NITRITE Negative (Normal) UA - PH 6.0 (Normal) UA - PROTEIN Negative mg/dL (Normal) UA - SPECIFIC GRAVITY 1.020 (Normal) URINE UROBILINGN PAKO TIMED 2 mg/dL (Normal) 18-Uzj-565461:11 BILAT SCRN DIGITAL & CAD Radiology Report See Note (Normal) Comments: Exam Number: [id number] MAMMOGRAM, BILATERAL SCREENING DIGITAL AND CAD HISTORYRoutine [...] werealso examined with compute r-aided detection software ([employer] Reported By: ANANYA ORTIZ M.D. 21-Lpv-287021:24 Microscopic Examination Comments: PATIENT NOT FASTINGPERFORMED BY: CloudVerticalAdvanced Care Hospital of Southern New MexicoDaloyy8269 [facility] [id number] Bacteria Moderate (Abnormal) Crystal Type Calcium Oxalate (Normal) Comments: Amorphous Sediment Crystals Present (Abnormal) Epithelial Cells (non renal) >10 {/hpf} (Abnormal) Range: 0 - 10 Mucus Threads Present (Abnormal) RBC None seen {/hpf} (Normal) Range: 0 - 3 WBC 0-5 {/hpf} (Normal) Range: 0 - 5 Yeast Present (Abnormal) 69-Cng-484848:24 URINALYSIS W/O MICRO (97064) Comments: PATIENT NOT FASTINGPERFORMED BY: [facility] Ilzbqa8154 [facility] [id number] Appearance Clear (Normal) Bilirubin Negative (Normal) Glucose Negative (Normal) Ketones Negative (Normal) Microscopic Examination See below: (Normal) Nitrite, Urine Negative (Normal) Occult Blood Negative (Normal) pH 5.5 (Normal) Range: 5.0-7.5 Protein Negative (Normal) Specific [place] 1.023 (Normal) Range: 1.005-1.030 Urine-Color Yellow (Normal) Urobilinogen,Semi-Qn 0.2 mg/dL (Normal) Range: 0.0-1.9 WBC Esterase 1+ (Abnormal) 58-Yse-754900:24 METABOLIC PANEL, COMPREHENSIVE Comments: PATIENT NOT FASTINGPERFORMED BY: [facility]6370 [facility] [id number] (38357) A/G Ratio 2.0 (Normal) Range: 1.1-2.5 Albumin, [...] Sodium, Serum 143 mmol/L (Normal) Range: 135-148 18-Ryx-139121:24 CBC WITH MANUAL DIFF (92323) Comments: PATIENT NOT FASTINGClinical Information: ADD DRAW FEE [id number] ADD J 20488 PERFORMED BY: LabCoLeslie [facility] [id number] [facility] [id number] Baso (Absolute) 0.0 {x10E3/uL} (Normal) Range: 0.0-0.2 [...] 11.7-15.0 WBC 3.1 {x10E3/uL} Range: 4.0-10.5 (Abnormal) 27-Dzs-30900:00 CULTURE, THROAT See Note (Normal) Comments: Normal throat fredo isolated. No beta-hemolyticstreptococcus isolated. 67-Fqo-593237:20 CHEST, PA AND LATERAL Radiology Report See Note (Normal) Comments: Exam Number: [id number] PA AND LATERAL CHEST HISTORYShortness of breath, chest heaviness. Cardiac configuration is normal. No acute infiltrate, effusion orpneumothorax is noted. There is spur formatio n in the mid dorsalspine. There is mild overinflation of the lungs. Further clinicalcorrelation needed. IMPRESSION1. No acute change noted in the lungs. Reported By: TRU SUNSHINE M.D. 93-Joj-29460:01 CBCD,SMEAR DIFF CELLS COUNTED 100 (Normal) EOS [...] T PROT 7.1 g/dL (Normal) Range: 6.4-8.2 :01 PFLIP CHOL 219 mg/dL (Abnormal) Comments: <200 [...] : URI Symptoms Indication: Bronchitis Planned Observations Anti TPO Antibody (10863)Indication: Goiter On: 23-Duo-155527:06 Request TSH (91030)Indication: Goiter On: 58-How-901233:05 Request T4, FREE (THYROXINE) (41516)Indication: Goiter On: 10-Gna-283871:05 Request T3, FREE (TRIDOTHYRONINE) (34809)Indication: Goiter On: 55-Inb-951347:05 Request LIBBY CULTURE-OTHER (17796)Indication: Pharyngitis, acute On: 39-Nue-841672:52 Request LIPID PANEL (11553)Indication: Hypercholesterolemia On: 45-Drd-587833:09 Request METABOLIC PANEL, COMPREHENSIVE (29971)Indication: Hypercholesterolemia On: 16-Kik-136636:09 Request TRIGLYCERIDES (08950)Indication: Hypercholesterolemia On: 2-Ruf-702534:21 Request LDL CHOLESTEROL-DIRECT (45207)Indication: Hypercholesterolemia On: 4-Omt-480222:21 Request Metabolic Panel, Basic (59993)Indication: Hypertension On: 00-Hla-005493:19 Request Metabolic Panel, Comprehensive (98995)Indication: Hypertension On: 78-Exy-831355:05 Request Comments: in six months (approximately) CBC, Platelets & Auto Diff (40108)Indication: Hypertension On: 71-Nmb-646645:05 Request CALCIFIDIOL (07282) VIT D 25Indication: Preoperative clearance On: :32 Request Lipid Panel (87558)Indication: Preoperative clearance On: : Request Metabolic Panel, Comprehensive (09947)Indication: Preoperative clearance On: : Request TSH (10104)Indication: Preoperative clearance On: : Request CBC WITH MANUAL DIFF (27448)Indication: Preoperative clearance On: : Request CBC, Platelets & Auto Diff (36191)Indication: Alteration of body temperature On: 12-Pce-560615:02 Request Metabolic Panel, Basic (11160)Indication: Hypertension On: 06-Oct-20158:43 Request URINALYSIS, W/ MICRO (94175)Indication: Hypertension On: 3-Gjh-069667:03 Request METABOLIC PANEL, COMPREHENSIVE (40304)Indication: Hypertension On: 0-Snj-720410:03 Request LIPID PANEL (21295)Indication: Hypertension On: 0-Nit-389419:02 Request CBC with auto diff (81701)Indication: Hypertension On: 3-Dua-029097:02 Request CALCIFEDIOL (75511)Indication: Hypertension On: 76-Vpf-546569:17 Request TSH (99596)Indication: Hypertension On: 28-Usk-356858:16 Request CBC WITH MANUAL DIFF (79169)Indication: Hypertension On: 93-Iuv-233745:16 Request Lipid Panel (92577)Indication: Hypercholesterolemia On: :16 Request Metabolic Panel, Comprehensive (26020)Indication: Hypertension On: 00-Svv-090998:16 Request CALCIFIDIOL (78363) VIT D 25Indication: Benign breast cyst in female On: 30-Ugs-899439:39 Request URINALYSIS, W/ MICRO (25984)Indication: Hypertension On: 21-Npt-585571:38 Request MICROALBUMIN: CREATININE RATIO (88361) AND (51963)Indication: Hypertension On: 37-Tou-009520:38 Request METABOLIC PANEL, COMPREHENSIVE (16843)Indication: Hypertension On: :38 Request LIPID PANEL (03779)Indication: Hypertension On: :38 Request CBC WITH MANUAL DIFF (95678)Indication: Hypertension On: :38 Request URINALYSIS (82370)Indication: Hypertension On: 75-Bqz-389079:12 Request CBC with manual diff (20383)Indication: Hypertension On: :53 Request Lipid Panel (57149)Indication: Hypertension On: :52 Request Metabolic Panel, Comprehensive (45480)Indication: Hypertension On: :52 Request Metabolic Panel, Basic (52495)Indication: Hypertension On: 46-Aon-493252:12 Request METABOLIC PANEL, BASIC (01204)Indication: Hypertension On: 19-Ivb-623595:27 Request MICROALBUMIN: CREATININE RATIO (84893) AND (36444)Indication: Hypercholesterolemia On: :39 Request CBC, PLATELETS & AUT DIFF (76345)Indication: Hypercholesterolemia On: :39 Request URINALYSIS (26309)Indication: Hypercholesterolemia On: :39 Request LIPID PANEL (00813)Indication: Hypercholesterolemia On: :39 Request METABOLIC PANEL, COMPREHENSIVE (85192)Indication: Hypercholesterolemia On: :39 Request URINALYSIS, W/ MICRO (47014)Indication: Hypertension On: 65-Fko-914518:58 Request MICROALBUMIN: CREATININE RATIO (21090) AND (48028)Indication: Hypertension On: 80-Kcb-848929:58 Request METABOLIC PANEL, COMPREHENSIVE (15607)Indication: Hypertension On: 19-Zxb-493666:58 Request LIPID PANEL (27725)Indication: Hypertension On: 75-Lpc-511068:58 Request CBC WITH MANUAL DIFF (98012)Indication: Hypertension On: 86-Jya-730421:58 Request Rapid Strep Test, Office (68591)Indication: Pharyngitis, acute On: :54 Request LIBBY CULTURE-OTHER (57379)Indication: Pharyngitis, acute On: 62-Jer-68619:54 Request LIPID PANEL (48050)Indication: Hypercholesterolemia On: 7-Ugy-417707:11 Request HEPATIC FUNCTION PANEL (16397)Indication: Hypercholesterolemia On: 1-Vbv-978250:11 Request Comments: in six months CBC WITH MANUAL DIFF (60953)Indication: Hypertension On: 55-Qhr-050525:35 Request LIPID PANEL (53089)Indication: Hypertension On: :34 Request METABOLIC PANEL, COMPREHENSIVE (09316)Indication: Hypertension On: :34 Request Planned Encounters Medical; [facility] 4 Month Fu - On: 15-Jan-2019 11:30 [facility] Damaris TERRY, Sade Butt MD Planned Procedures EsophagramBy: Sade Ocampo MD On: 26-Sep-2018 Intent Sade Ocampo MD Comments: with a 12 mm tablet swallow Ultrasound - ThyroidBy: Damaris TERRY, On: 11-Sep-2018 Intent Sade Butt MD DEXA SCAN AXIAL SKELETON (17423)By: On: 06-Apr-2018 Intent Sade Ocampo MD, MD, Dana M MAMMOGRAM BREAST BILATERAL On: 16-Mar-2018 Intent SCREENING DIGITAL (73676)By: Sade Ocampo MD, MD, Dana M EKG (67685)By: Sade Ocampo MD On: 13-Feb-2018 Intent Sade Ocampo MD Radiology - Hand - RightBy: Damaris On: 29-Jan-2018 Intent Sade TERRY MD, Dana M Radiology - Hip - LeftBy: Damaris On: 12-May-2017 Intent Sade TERRY MD, Dana M Radiology - Lumbar SpineBy: Damaris On: 12-May-2017 Intent Sade TERRY MD, Dana M MAMMOGRAM BREAST BILATERAL On: 13-Mar-2017 Intent SCREENING DIGITAL ([id number])By: Sade Ocampo MD, MD, Dana M Aerosol Treatment ([id number])By: Bianca On: 20-Jan-2016 Intent Dora RG MAMMOGRAM, SCREENING, BOTH BREAST On: 02-Oct-2015 Intent ([id number])By: Sade Ocampo MD, MD, Dana M Bone Density StudyBy: Damaris TERRY, On: 02-Oct-2015 Intent Sade Butt MD BILATERAL MAMMOGRAMS ([id number])By: On: 21-Sep-2015 Intent Sade Ocampo MD, MD, Dana M Prevnar 13 ([id number])By: Damaris TERRY, On: 17-Oct-2014 Intent Sade Butt MD BILATERAL MAMMOGRAMS ([id number])By: On: 16-Sep-2014 Intent Sade Ocampo MD, MD, Dana M Breast Screening - BilateralBy: On: 16-Sep-2013 Intent Sade Ocampo MD, MD, Dana M Rocephon Injection, 1 Gm On: 20-Nov-2012 Intent ([id number])By: Sade Ocampo MD Comments: Lot #[id number]-bilateral hipsDose- 2 gramsgiven by: IFRAH Anderson MD, Dana M THER/PROPH/DIAG INJ, SC/IM On: 20-Nov-2012 Intent ([id number])By: Sade Ocampo MD, MD, Dana M Eprescribed prescriptions On: 08-Nov-2012 Intent ([id number])By: Sade Ocampo MD, MD, Dana M PNEUM VAC ADLT/IMUMNOSPR, SBC/INTRM On: 15-Oct-2012 Intent ([id number])By: Jacquelyn Steven LPN Comments: Lot: [id number]: [id number]: 0.5mlRoute: IMSite: L deltoidGiven by: IFRAH Suh IMMUNIZ ADMNIN, 1 VAC, SNGL/COMBO On: 15-Oct-2012 Intent ([id number])By: Jacquelyn Steven LPN Breast Screening - BilateralBy: On: 08-Oct-2012 Intent Sade Ocampo MD, MD, Sade Barbosa IMMUNIZ ADMNIN, 1 VAC, SNGL/COMBO On: 08-Oct-2012 Intent ([id number])By: Sade Ocampo MD, MD, Dana M PNEUM VAC ADLT/IMUMNOSPR, SBC/INTRM On: 08-Oct-2012 Intent ([id number])By: Sade Ocampo MD, MD, Dana M IMMUNIZ ADMNIN, 1 VAC, SNGL/COMBO On: 08-Oct-2012 Intent ([id number])By: DAVID Nina FLU VAC, SPLIT, >3 YEARS, INTRAMUSC On: 08-Oct-2012 Intent ([id number])By: DAVID Nina MRI - Knee(s) - LeftBy: Donovan KIDD, On: 30-Dec-2011 Intent Alissa Garcia PHYSICAL THERAPY EVALUATION On: 30-Dec-2011 Intent ([id number])By: Alissa Man CNP Doppler Ultrasound OtherBy: Donovan On: 30-Dec-2011 Intent Alissa KIDD Radiology - Knee - LeftBy: Donovan On: 30-Dec-2011 Intent Alissa KIDD Breast Screening - BilateralBy: On: 04-Aug-2011 Intent Sade Ocampo MD, MD, Dana M Eprescribed prescriptions On: 10-Jan-2011 Intent ([id number])By: Sade Ocampo MD, MD, Dana M EKG ([id number])By: DAVID Nina On: 12-Oct-2010 Intent MAMMOGRAM, SCREENING, BOTH BREASTS On: 20-Sep-2010 Intent ([id number])By: Haley Chaparro DO EKG ([id number])By: Sade Ocampo MD On: 17-Sep-2009 Intent Sade Ocampo MD MAMMOGRAM, SCREENING, BOTH BREASTS On: 17-Sep-2009 Intent ([id number])By: Sade Ocampo MD, MD, Dana M MAMMOGRAM, SCREENING, BOTH BREASTS On: 23-Sep-2008 Intent ([id number])By: Lara Iglesias Nuclear Stress Test/Stress On: 19-Oct-2007 Intent SPECT/TreadmillBy: Fast DO, Haley A EKG ([id number])By: Haley Chaparro DO On: 19-Oct-2007 Intent Comments: ekg showed normal sinus rhythym, normal axis, no acute st/t wave changes nsivcd Bio Z ([id number])By: Haley Chaparro DO On: 19-Oct-2007 Intent Comments: good paremeterss IMMUNIZ ADMNIN, 1 VAC, SNGL/COMBO On: 22-Aug-2007 Intent ([id number])By: Shruthi Louis LPN PNEUM VAC ADLT/IMUMNOSPR, SBC/INTRM On: 22-Aug-2007 Intent ([id number])By: Shruthi Louis LPN Comments: lot # [id number] exp- 09/06 LDLT patient tolerated well Flu Vaccine, Split IM ([id number])By: On: 22-Aug-2007 Intent Shruthi Louis LPN Comments: lot #[id number] exp- 02/04 RDLT patient tolerated well SPECIMEN HNDLNG/TRNSPRT, OFFC > LAB On: 18-Jun-2007 Intent ([id number])By: NAYELI DIAMOND CNP Pulse Oximetry ([id number])By: Maico On: 18-Jun-2007 Intent DAVID Radiology - Chest- PA and LatBy: On: 09-Feb-2007 Intent Lacey Sherman DO Aerosol Treatment ([id number])By: Lane On: 09-Feb-2007 Lacey Walker DO Comments: [...] glutealGiven by: Magalys Michael LPN Inhaler Demo ([id number])By: DARA KIDD, On: 07-Feb-2007 Intent NAYELI Aerosol Treatment ([id number])By: DARA On: 07-Feb-2007 Intent NAYELI KIDD Comments: moderate improvement after treatment--still tons of wheezing diffuse inspir and exp IMMUNIZ ADMNIN, 1 VAC, SNGL/COMBO On: 13-Oct-2006 Intent ([id number])By: Sade Ocampo MD, MD, Dana M FLU VAC, SPLIT, >3 YEARS, INTRAMUSC On: 13-Oct-2006 Intent ([id number])By: Sade Ocampo MD, MD, Dana M MAMMOGRAM, SCREENING, BOTH BREASTS On: 13-Oct-2006 Intent ([id number])By: Sade Ocampo MD, MD, Dana M EKG ([id number])By: Sade Ocampo MD On: 13-Oct-2006 Intent Sade Ocampo MD Bio Z ([id number])By: Sade Ocampo MD On: 13-Oct-2006 Intent Sade [...] The patient does have durable power of commonwealth attorney and living will. The patient h as noticed nothing from the geriatic depression scale. Other providers contributing to the patient's care are bioinformatics engineer, gastrologist (Dr. Pabon ) and other: ([facility]: [facility] ).Encounter Diagnosis: Encounter for Medicare annual [...] Nutrition: balanced diet and supplemental vitamins. The ks dical issues the patient is following up [...]
== END ==
PROVIDERS: Family Provider Internal Medicine; PCP Internal Medicine; Referring Provider Internal Medicine; Visit Provider Internal Medicine
DX: R13.10 Dysphagia, unspecified (principal)
CPT/HCPCS: 74220

== ENCOUNTER → 2019-01-09 09:47 | Outpatient (CLI) | payer MEDICARE, OTHER, SELFPAY ==
[2018-11-09 13:09] VITALS: BMI 30.7
[2019-01-09 12:51] LABS: ALB/GLOB Ratio 1.3 RATIO (0.9-2.4); AST(SGOT) 25 U/L (15-37); Alanine Aminotransfer ALT/SGPT 38 U/L (13-56); Albumin, Serum 3.9 g/dL (3.2-5.0); Alkaline Phosphatase 99 U/L (45-117); Anion Gap 8 (5-15); BUN 20 mg/dL (7-18); BUN/Creat Ratio 29.8 RATIO (10-20); Calcium,Total 8.8 mg/dL (8.5-10.1); Chloride 105 mmol/L (98-107); Cholesterol 181 mg/dL (200); Creatinine, Serum 0.67 mg/dL (0.55-1.02); EST Glomerular Filtration Rate 92 mL/min (>60); Est Glom Filt Rate - Afr Amer 111 mL/min (>60); Globulin 3.1 g/dL (2.2-4.2); Glucose 88 mg/dL (74-106); High Density Lipoprotein 52 mg/dL; Potassium 3.7 mmol/L (3.5-5.1); Sodium Level 142 mmol/L (136-145); Triglycerides 145 mg/dL; Very Low Density Lipoprotein 29 mg/dL (5-40)
== END ==
PROVIDERS: Family Provider Internal Medicine; PCP Internal Medicine; Referring Provider Internal Medicine; Visit Provider Internal Medicine
DX: E78.00 Pure hypercholesterolemia, unspecified (principal)
CPT/HCPCS: 36415; 80053; 80061

== ENCOUNTER 2019-01-22 05:58 | Day surgery (SDC) | payer MEDICARE, OTHER, SELFPAY ==
[2018-11-09 13:09] VITALS: BMI 30.7
[2019-01-22] VITALS (13 sets, daily range): BP systolic 109–162; BP diastolic 45–77; PULSE 74–84; RESP 14–16; TEMP 35.8–36.7; O2SAT 92–99; BMI 31.8
--- NOTE | 2019-01-22 06:10 | PCM.HP.STD ---
Problem List (1) Esophageal dysphagia Status: Acute History of Present Illness Date of Admission: 01/22/19 The patient is a 73 year old F who I had previously seen in the office on November 09, 2018. We previously had her scheduled for an upper endoscopy however last minute she canceled. She has now rescheduled for a esophageal gastroduodenoscopy. She is been complaining of a globus sensation and difficulty swallowing and food getting stuck. She has already been seen by Dr. Juan Moreno ENT for sinus issues. She had a thyroid ultrasound performed September 19, 2018 which did not demonstrate a focal lesion. On October 16 she had a barium esophagram which was felt to be normal. No hiatal hernia and no reflux a barium tablet however became lodged at the EG junction. She states that she has had a very remote upper GI endoscopy as well. She does not complain of heartburn or water brash. She does complain that food gets hung up in the lower esophagus. She was more recently prescribed pantoprazole by Dr. Ocampo. Past Medical History Medical History: Medical History (Last Updated 11/09/18 @ 13:08 by Michelle Martinez) Globus sensation (Acute) F45.8 Esophageal dysphagia (Acute) R13.10 Arthritis M19.90 Carotid stenosis, bilateral I65.23 Dysphagia R13.10 GERD (gastroesophageal reflux disease) K21.9 knee pain HTN (hypertension) I10 Allergies clavulanic acid [From Augmentin] Allergy (Mild, Verified 11/09/18 13:11) GI upset amoxicillin [From Augmentin] Adverse Reaction (Mild, Verified 11/09/18 13:11) GI upset levofloxacin [From Levaquin] Adverse Reaction (Mild, Verified 11/09/18 13:11) gi upset Home Medications: Ambulatory Orders Medication Instructions Recorded losartan 100 PO 60 Days #60 12/18/17 mg-hydrochlorothiazide 12.5 mg tablet pantoprazole 40 mg tablet,delayed PO 60 Days #60 12/18/17 release cyclobenzaprine 10 mg tablet 10 mg PO TID 11/09/18 ezetimibe 10 mg tablet 10 mg PO DAILY 11/09/18 Surgical History: Surgical History (Last Updated 11/09/18 @ 13:08 by Michelle Martinez) History of cataract extraction Z98.49 History of esophagogastroduodenoscopy (EGD) Z98.890 History of hysterectomy Z98.890, Z90.710 History of tonsillectomy Z98.890, Z90.89 Status post debridement of bone spur Z98.890 Smoking Status: Never smoker Review of Systems Constitutional: Denies: Anorexia HEENT: Reports: Difficulty Swallowing, Dysphasia Cardiovascular: Denies: Chest Pain Gastrointestinal: Denies: Abdominal Pain Endocrine: Denies: Change in Body Habitus VTE Information - Inpt Only VTE Present on Admission: No - Physical Exam General: Alert, Oriented x3, Cooperative HEENT: Atraumatic Oral: Moist Mucosa Lungs: Clear to auscultation, Normal air movement Cardiovascular: Regular rate, Regular Rhythm Abdomen: Bowel Sounds Present, Soft, Non Tender Body Mass Index (BMI) 30.7 Assessment/Plan All Active Problems (Last Updated 11/09/18 @ 13:08 by Michelle Martinez) Globus sensation (Acute) Esophageal dysphagia (Acute) Pharyngitis, acute (Acute) I anticipate a esophagogastroduodenoscopy with careful inspection for possible H. pylori or eosinophilic esophagitis or Schatzki's ring. If a Schatzki ring is identified and the patient has consented to pursue hydrostatic dilatation. If no acute findings are identified and recommendations referral back to Dr. Juan Moreno ENT would be made. She has had an opportunity to ask and have questions answered. We will proceed as noted. Teodoro Humphries M.D., F.A.C.S.
--- NOTE | 2019-01-22 07:00 | IMM_PTH ---
PATIENT: SACHIN LYNN LOC: EN U#:[id number] AGE/SX: 73/F ROOM: RE01/22/[address]: Dr. Teodoro Humphries MD : 1945 BED: DIS: 01/22/2019 SPEC #: [id number] RECD: 01/22/19 11:49 STATUS: RONALD CYNTHIA #: [id number] BRISEIDA: 01/22/19 07:[address]: Teodoro Humphries DEPT: IMMUNOHISTOCHEMISTRY RECD BY: Sosa Alan ENTERED: 01/22/19 11:50 SP TYPE: IMMUNO OTHR DR: Dr. Sade Ocampo MD Tissues: B - Stomach, NOS Procedures: H Pylori (initial) PHYSICIAN & INSTITUTION [place] [address] SPECIMEN INFORMATION: Tissue Source: B - Gastric antrum biopsy Clinical Info: Possible dilatation Specimen Number: [id number] CPT code: 57280 METHODOLOGY: Deparaffinized sections of prefer/formalin-fixed tissue or PAP/DQ stained slides are incubated with monoclonal/polyclonal antibodies/oligonucleotide probes. Localization is made via biotin free immunoperoxidase method. Appropriate controls are performed and reacted as expected. Results on target cell population are indicated in the following table: RESULTS: ANTIBODY / CLONE RESULT Block B H Pylori (polyclonal) negative These tests were developed and their performance characteristics determined by [facility]. They may not have been cleared or approved by the U.S. Food and Drug Administration. The FDA has determined that such clearance or approval is not necessary. INTERPRETATION: B. Gastric antrum, biopsy: Negative for Helicobacter pylori organisms. AM:mendy 01/23/19
--- NOTE | 2019-01-22 07:00 | EGD_PTH ---
PATIENT: SACHIN LYNN LOC: EN U#:[id number] AGE/SX: 73/F ROOM: RE01/22/[address]: Dr. Teodoro Humphries MD : 1945 BED: DIS: 01/22/2019 SPEC #: [id number] RECD: 01/22/19 09:21 STATUS: RONALD CYNTHIA #: [id number] BRISEIDA: 01/22/19 07:[address]: Teodoro Humphries DEPT: SURGICAL PATHOLOGY RECD BY: Sadie Arango ENTERED: 01/22/19 11:28 SP TYPE: EGD BIOPSY OTHR DR: Dr. Sade Ocampo MD Tissues: A - Duodenum, NOS B - Gastric mucous membrane C - Gastric mucous membrane D - Gastric mucous membrane E - Esophagus, NOS Procedures: Special Stain Group II Surgery Specimen Level IV Alcian Blue/PAS (control) HEADER OPERATION: EGD (MOD), possible dilation PRE-OP DIAGNOSIS: Possible dilation TISSUE SUBMITTED: A. Biopsy duodenum, B. Biopsy gastric antrum, H. pylori and path, C. Biopsy polyp body of stomach, D. Biopsy E-G junction, E. Biopsy mid esophagus MICROSCOPIC DIAGNOSIS A. Duodenum, biopsy: No significant pathologic change. No evidence of enteritis. B. Gastric antrum, biopsy: Minimal chronic inflammation. See comment. C. Gastric polyp, biopsy: Fundic gland polyp. D. Gastroesophageal junction, biopsy: Chronic inflammation. No evidence of dysplasia. See comment. E. Mid esophagus, biopsy: Fragments of benign squamous mucosa. No evidence of inflammation. AM:mendy 01/23/19 COMMENT B. The results of immunohistochemistry for Helicobacter pylori will be reported separately ([id number]). D. Alcian blue/PAS stain with matched control supports the above diagnosis. MICROSCOPIC DESCRIPTION Slides are reviewed. GROSS DESCRIPTION A - Received in fixative is one container labeled with the patient's name and designated duodenum biopsy. The specimen consists of one irregular fragment of light solo soft tissue that measures 0.5 x 0.2 x 0.1 cm. The specimen is totally submitted in one cassette. B - Received in fixative is one container labeled with the patient's name and designated biopsy gastric antrum. The specimen consists of one irregular fragment of light solo soft tissue that measures 0.3 x 0.3 x 0.1 cm. The specimen is totally submitted in one cassette. C - Received in fixative is one container labeled with the patient's name and designated polyp body of stomach. The specimen consists of two irregular fragments of light solo soft tissue that in aggregate measure 0.3 x 0.3 x 0.1 cm and 0.1 cm in greatest dimension. The specimen is totally submitted in one cassette. D - Received in fixative is one container labeled with the patient's name and designated EG junction. The specimen consists of multiple irregular fragments of light solo soft tissue that in aggregate measure 1 x 0.4 x 0.1 cm. The specimen is totally submitted in one cassette. E - Received in fixative is one container labeled with the patient's name and designated biopsy mid esophagus. The specimen consists of multiple irregular fragments of light solo soft tissue that in aggregate measure 0.7 x 0.2 x 0.1 cm. The specimen is totally submitted in one cassette. / SJ:rg 01/22/19 TC:3 CPT: 33710 x5, 33377
--- NOTE | 2019-01-22 07:20 | OP.ENDO_ITS ---
01/22/2019 Sade Ocampo Re : Upper GI endoscopy procedure for Emeli Rojas Damaris This procedure was performed on Tuesday, January 22, 2019. My impressions and recommendations are as follows: Impressions : - Z-line regular, 36 cm from the incisors. Biopsied. - Normal mid esophagus. Biopsied. - Erythematous mucosa in the antrum. Biopsied. - Multiple gastric polyps. Resected and retrieved. - Normal examined duodenum. Biopsied. Recommendations : - Discharge patient to home. - Resume previous diet. - Continue present medications. - Telephone my office for pathology results in 1 week. My findings are described in the full procedure note, which is enclosed. If I can be of further assistance, please feel free to contact me at Doctor phone number(s): Work: . Sincerely, Teodoro Humphries MD 01/22/2019 7:19:51 AM This report has been signed electronically.
[2019-01-22] MEDS: Ondansetron ODT 4 MG Tablet PO (08:39)
== END 2019-01-22 09:27 | disposition home or self-care (01) ==
LOC: EN 05:59 → AC 05:59
PROVIDERS: Family Provider Internal Medicine; PCP Internal Medicine; Referring Provider Surgery; Visit Provider Surgery
PROC: (CPT 43239; principal; 2019-01-22 06:55)
DX: K29.50 Unspecified chronic gastritis without bleeding (principal); K31.7 Polyp of stomach and duodenum; Z79.899 Other long term (current) drug therapy
CPT/HCPCS: 43239; 88305; 88313; 88342; 99152; 99153; J7120

== ENCOUNTER → 2019-01-29 13:29 | Outpatient (CLI) | payer MEDICARE, OTHER, SELFPAY ==
[2018-11-09 13:09] VITALS: BMI 30.7
[2019-01-22 06:29] VITALS: BMI 31.8
--- NOTE | 2019-01-29 13:31 | CT_ITS ---
STUDY: CT CHEST WITHOUT CONTRAST REASON FOR EXAM: Female, 73 years old. Follow-up for left upper lobe mass. RADIATION DOSAGE (If Supplied By Facility): CTDIvol = ( 15.78 ) mGy, DLP = ( 556.13 ) mGycm TECHNIQUE: Transaxial imaging was performed without the administration of intravenous contrast material. Multiplanar coronal and sagittal images were reformatted. Individualized dose optimization techniques were used for this CT. COMPARISON: Comparison is made with prior examination dated April 17, 2018. FINDINGS: There is a 2.3 cm x 2.3 cm mass once again seen in the left upper lobe. Linear stranding is seen along its anterior aspect. This is essentially unchanged. There is no demonstrated pleural abnormality. There are calcifications of the coronary arteries. Normal mediastinum. Normal hilar regions. Normal unenhanced pulmonary arteries. There is atherosclerotic calcification of the aortic arch . There are multi-level degenerative changes of the thoracic spine. Multiple gallstones. Fatty infiltration of the liver. CT/Chest without Contrast IMPRESSION: Stable 2.3 cm x 2.3 cm rounded soft tissue mass in the left upper lobe with anterior stranding. There has been essentially no change since prior study. Electronically Signed: Mikey Pierre, at 9:10 EDT , Service support ,
== END ==
PROVIDERS: Family Provider Internal Medicine; PCP Internal Medicine; Referring Provider Internal Medicine; Visit Provider Internal Medicine
DX: R91.8 Other nonspecific abnormal finding of lung field (principal)
CPT/HCPCS: 71250

== ENCOUNTER → 2019-04-11 | Outpatient (CLI) | payer MEDICARE, OTHER, SELFPAY ==
[2019-01-22 06:29] VITALS: BMI 31.8
--- NOTE | 2019-04-11 11:55 | BI_ITS ---
MAMMOGRAPHY - BILATERAL SCREENING REASON FOR EXAM: Female, 73 years old. Routine annual screening examination. PERTINENT HISTORY: Grandmother with breast cancer. TECHNIQUE: Digital bilateral breast lj (3D mammographic acquisition) in the CC and MLO projections. 2-D mediolateral oblique (MLO) and craniocaudad (CC) views of both breasts were obtained. CAD: Full Field Digital Mammography with Computer Added Detection was performed. COMPARISON: Comparison is made with the prior examination dated April 09, 2018 and March 22, 2017. FINDINGS: Breast Composition: The breasts are heterogeneously dense, which may obscure small masses. There are no dominant masses or suspicious calcifications. No other significant abnormalities are identified. There has been no significant change since the prior study. BI/SCREEN MAMM (CAD) W/LJ BILAT IMPRESSION: Stable bilateral screening mammogram. Yearly follow-up mammogram recommended. (A) ASSESSMENT CATEGORY: BIRADS Category 1: Negative. A letter regarding these results will be sent to the patient by the facility within 30 days. Approximately 10% of breast cancers are not detected by mammography. A normal mammogram should not delay biopsy of a clinically suspicious abnormality. [id number] Electronically Signed: Mikey Pierre, at 13:56 EDT , Service support ,
== END | disposition home or self-care (01) ==
LOC: OPBI 11:54
PROVIDERS: Family Provider Internal Medicine; PCP Internal Medicine; Referring Provider Internal Medicine; Visit Provider Internal Medicine
DX: Z12.31 Encounter for screening mammogram for malignant neoplasm of breast (principal)
CPT/HCPCS: 77063; 77067

== ENCOUNTER → 2019-06-26 | Outpatient (CLI) | payer MEDICARE, OTHER, SELFPAY ==
[2019-01-22 06:29] VITALS: BMI 31.8
--- NOTE | 2019-06-26 10:54 | RAD_ITS ---
STUDY: X-RAY - LUMBAR SPINE REASON FOR EXAM: Female, 73 years old. Low back pain, bilateral leg pain. TECHNIQUE: 5 view(s) of the lumbar spine were obtained. COMPARISON: None FINDINGS: Normal lumbar lordosis. Mild levoscoliosis. There is a normal alignment of the vertebrae. Normal vertebral bodies and endplates. Normal disc space heights. Facet hypertrophy in the lower lumbar spine consistent with degenerative disc disease. The soft tissue structures are unremarkable. RAD/L/S Spine Min 4 Views IMPRESSION: Mild levoscoliosis with degenerative disc disease lower lumbar spine. Electronically Signed: Blane Patricia MD at 11:15 EDT Tel , Service support ,
== END | disposition home or self-care (01) ==
LOC: MTRAD 10:53
PROVIDERS: Family Provider Internal Medicine; PCP Internal Medicine; Referring Provider Internal Medicine; Visit Provider Internal Medicine
DX: M54.5 Low back pain (principal); M54.16 Radiculopathy, lumbar region
CPT/HCPCS: 72110

== ENCOUNTER → 2019-08-26 | Outpatient (CLI) | payer MEDICARE, OTHER, SELFPAY ==
[2019-01-22 06:29] VITALS: BMI 31.8
--- NOTE | 2019-08-26 16:12 | RAD_ITS ---
STUDY: X-RAY - LEFT HUMERUS REASON FOR EXAM: Female, 73 years old. Fall. Pain. TECHNIQUE: 2 view(s) of the humerus. COMPARISON: None. FINDINGS: Normal visualized humerus. There is no demonstrated fracture or osseous destructive process. There is no demonstrated soft tissue abnormality. RAD/Humerus min 2 Views IMPRESSION: Normal x-ray examination of the humerus. Electronically Signed: Elio Duran MD at 20:56 EDT , Service support ,
--- NOTE | 2019-08-26 16:12 | RAD_ITS ---
STUDY: X-RAY - LEFT SHOULDER REASON FOR EXAM: Female, 73 years old. Fall. Arm pain. TECHNIQUE: 4 view(s) of the shoulder. COMPARISON: None. FINDINGS: Normal glenohumeral articulation. There is hypertrophic osteoarthrosis of the acromioclavicular joint with inferior osseous spur formation. Normal acromion. Normal humeral head and visualized proximal humerus. The soft tissue structures are unremarkable. There is no demonstrated fracture. A 3 cm mass is seen in the medial mid left lung, also present on previous CT scan. RAD/Shoulder min 2 Views IMPRESSION: No acute fracture or dislocation. Acromioclavicular osteoarthritis. Mass in the mid left lung. Electronically Signed: Elio Duran MD at 20:56 EDT , Service support ,
== END | disposition home or self-care (01) ==
LOC: MTRAD 16:09
PROVIDERS: Family Provider Internal Medicine; PCP Internal Medicine; Referring Provider Internal Medicine; Visit Provider Internal Medicine
DX: M79.602 Pain in left arm (principal)
CPT/HCPCS: 73030; 73060

== ENCOUNTER → 2019-10-08 14:16 | Outpatient (CLI) | payer MEDICARE, OTHER, SELFPAY ==
[2019-01-22 06:29] VITALS: BMI 31.8
--- NOTE | 2019-10-08 14:18 | CT_ITS ---
STUDY: CT CHEST WITHOUT CONTRAST REASON FOR EXAM: Female, 73 years old. Pulmonary mass. RADIATION DOSAGE (If Supplied By Facility): CTDIvol = ( 16.23 ) mGy, DLP = ( 528.51 ) mGycm TECHNIQUE: Transaxial imaging was performed without the administration of intravenous contrast material. Coronal and sagittal reformatted images were created. Individualized dose optimization techniques were used for this CT. COMPARISON: CT chest dated 05/31/2019. PET/CT dated 04/30/2018. FINDINGS: There are no pulmonary infiltrates or pleural effusions. There is a stable 2.3 cm rounded mass in the left upper lobe. There are no new pulmonary nodules or masses. There is no pneumothorax. The heart and pericardium are within normal limits. There is no thoracic lymphadenopathy. There is no evidence of thoracic aortic aneurysm. Images through the upper abdomen demonstrate gallstones. There are no destructive osseous lesions. CT/Chest without Contrast IMPRESSION: Stable 2.3 cm indeterminate rounded mass in the left upper lobe. Follow-up CT in 6 months is recommended. No new nodules or masses. No pulmonary infiltrates or pleural effusions. Gallstones. Electronically Signed: Tony Logan, at 15:09 EST Tel , Service support ,
== END ==
PROVIDERS: Family Provider Internal Medicine; PCP Internal Medicine; Referring Provider Internal Medicine; Visit Provider Internal Medicine
DX: R91.8 Other nonspecific abnormal finding of lung field (principal)
CPT/HCPCS: 71250

== ENCOUNTER → 2020-07-21 | Outpatient (CLI) | payer MEDICARE, OTHER, SELFPAY ==
[2019-01-22 06:29] VITALS: BMI 31.8
--- NOTE | 2020-07-21 14:31 | BI_ITS ---
MAMMOGRAPHY - BILATERAL SCREENING REASON FOR EXAM: Female, 74 years old. Routine annual screening examination. PERTINENT HISTORY: Grandmother with breast cancer. TECHNIQUE: Digital bilateral breast lj (3D mammographic acquisition) in the CC and MLO projections. 2-D mediolateral oblique (MLO) and craniocaudad (CC) views of both breasts were obtained. CAD: Full Field Digital Mammography with Computer Added Detection was performed. COMPARISON: Comparison is made with prior study dated 12/12/2018 and 04/09/2018. FINDINGS: Breast Composition: The breasts are heterogeneously dense, which may obscure small masses. There are no dominant masses or suspicious calcifications. Stable scattered bilateral calcifications. No other significant abnormalities are identified. There has been no significant change since the prior study. BI/SCREEN MAMM (CAD) W/LJ BILAT IMPRESSION: Stable bilateral screening mammogram. Yearly follow-up mammogram recommended. (A) ASSESSMENT CATEGORY: BIRADS Category 2: Benign. A letter regarding these results will be sent to the patient by the facility within 30 days. Approximately 10% of breast cancers are not detected by mammography. A normal mammogram should not delay biopsy of a clinically suspicious abnormality. [id number] Electronically Signed: Mikey Pierre, at 16:02 EDT , Service support ,
--- NOTE | 2020-07-21 14:32 | BD_ITS ---
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 COMPARISON: Comparison is made with prior study dated 04/24/2018. FINDINGS: Lumbar Spine (L1-L4): g/cm2 (1.505) / T-score (2.8) / Z-score (4.5) Findings are suggestive of normal bone density with a low fracture risk. Left Femur Total: g/cm2 (0.972) / T-score (-0.3) / Z-score (1.4) Left Femoral Neck: g/cm2 (0.856) / T-score (-1.3) / Z-score (0.6) Right Femur Total: g/cm2 (0.982) / T-score (-0.2) / Z-score (0.6) Right Femoral Neck: g/cm2 (0.863) / T-score (-1.3) / Z-score (0.6) The T-Scores on the most recent prior examination were: Lumbar Spine (L1-L4): There has been improvement of bone density since the previous examination. Left Femur Total: which represents a worsening of 2.2%. Right Femur Total: which represents a worsening of 2.4%. BD/Dexa Bone Density Study IMPRESSION: The patient is considered osteopenic as outlined below according to World [place] Organization (WHO) criteria with a low fracture risk. There has been worsening of bone density since the previous examination. Reference Information: The T-score is the number of standard deviations above or below the standard which is normal for young adults at their peak bone mineral density. The World Health Organization (WHO) interprets the T-scores as follows: Above -1 Normal bone density Between -1 and -2.5 Osteopenia Equal to / or below -2.5 Osteoporosis As a practical clinical guideline, osteopenia may be graded as follows: Mild -1 through -1.5 Moderate -1.6 through -2.0 Severe -2.1 through -2.4 The Z-score is the number of standard deviations above or below age-matched controls. A Z-score of less than -1.5 would be considered abnormal. References: 1. NIH Osteoporosis and Related Bone Diseases http://www.osteo.org 2. International Society for Clinical Densitometry http://www.iscd.org 3. National Osteoporosis Foundation http://www.nof.org Electronically Signed: Mikey Pierre, at 15:45 EDT , Service support ,
== END | disposition home or self-care (01) ==
LOC: LAB.FUTURE 14:27
PROVIDERS: PCP Internal Medicine; Referring Provider Internal Medicine; Visit Provider Internal Medicine
DX: Z78.0 Asymptomatic menopausal state (principal); Z12.31 Encounter for screening mammogram for malignant neoplasm of breast
CPT/HCPCS: 77063; 77067; 77080

== ENCOUNTER → 2020-07-23 | Outpatient (CLI) | payer MEDICARE, OTHER, SELFPAY ==
[2019-01-22 06:29] VITALS: BMI 31.8
[2020-07-23 09:58] LABS: Absolute Lymphocyte Count 1.42 X10^3/uL (0.83-4.51); Absolute Neutrophil Count 1.7 X10^3/uL (2.0-7.7); Basophil# 0.02 X10^3/uL; Basophil% 0.6 % (0-1); Eosinophil# 0.05 X10^3/uL; Eosinophils% 1.4 % (0-5); Hematocrit 40.3 % (37-47); Lymphocyte # 1.42 X10^3/ul (4.0); Lymphocyte % 40.6 % (19-41); Mean Corp Hgb Conc 34.7 g/dL (32-36); Mean Corpuscular Hgb 34.7 pg (27.0-32.0); Mean Platelet Vol. 9.8 fl (6.2-12.0); Monocyte# 0.27 X10^3/uL; Monocyte% 7.7 % (0-10); NRBC Flagged by Analyzer 0 % (0-5); Neutrophil # 1.73 X10^3/uL (2.7-7.7); Neutrophil % 49.4 % (47-70); Platelet Count 205 K/mm3 (150-450); RBC Distribution Width CV 12.3 % (11.6-14.6); Red Blood Count 4.03 M/mm3 (4.2-5.4); White Blood Count 3.5 K/mm3 (4.4-11.0)
[2020-07-23 09:59] LABS: Color, Urine Yellow (Yellow); Glucose, Dipstick Normal (Normal); Ketone-Dipstick Negative (Negative); Leukocyte Esterase-Dipstick 500 /ul (Negative); Nitrite-Dipstick Negative (Negative); Occult Blood-Urine 25 /ul (Negative); Protein-Dipstick 30 mg/dl (Negative); Specific Gravity, Urine 1.015 (1.002-1.030); Urine Bilirubin Dipstick Negative (Negative); Urine Clarity Sl. Cloudy (Clear); Urine Urobilinogen Normal (Normal); Urine pH 6.5 (5.0 - 8.0)
[2020-07-23 10:22] LABS: Microalbumin,Random Urine 14.9 mg/L (NO RANGE EST.); Microalbumin:Creatinine Ratio 10.2 mg/g CRE (<30 mg/g CRE)
[2020-07-23 10:40] LABS: ALB/GLOB Ratio 1.2 RATIO (0.9-2.4); AST(SGOT) 16 U/L (15-37); Alanine Aminotransfer ALT/SGPT 24 U/L (13-56); Albumin, Serum 3.7 g/dL (3.2-5.0); Alkaline Phosphatase 95 U/L (45-117); Anion Gap 3 (5-15); BUN 13 mg/dL (7-18); BUN/Creat Ratio 20.8 RATIO (10-20); Calcium,Total 8.9 mg/dL (8.5-10.1); Chloride 103 mmol/L (98-107); Cholesterol 191 mg/dL (200); Creatinine, Serum 0.63 mg/dL (0.55-1.02); EST Glomerular Filtration Rate 99 mL/min (>60); Est Glom Filt Rate - Afr Amer 119 mL/min (>60); Glucose 87 mg/dL (74-106); High Density Lipoprotein 50 mg/dL; Potassium 3.6 mmol/L (3.5-5.1); Protein, Total 6.7 g/dL (6.4-8.2); Sodium Level 139 mmol/L (136-145); Triglycerides 109 mg/dL; Very Low Density Lipoprotein 22 mg/dL (5-40)
== END | disposition home or self-care (01) ==
LOC: MTLAB 09:06
PROVIDERS: PCP Internal Medicine; Referring Provider Internal Medicine; Visit Provider Internal Medicine
DX: E04.9 Nontoxic goiter, unspecified (principal); E78.00 Pure hypercholesterolemia, unspecified; I10 Essential (primary) hypertension
CPT/HCPCS: 36415; 80053; 80061; 81002; 82043; 82570; 84443; 85025

== ENCOUNTER → 2020-08-24 | Outpatient (CLI) | payer MEDICARE, OTHER, SELFPAY ==
[2019-01-22 06:29] VITALS: BMI 31.8
[2020-08-10 14:45] VITALS: BMI 31.8
--- NOTE | 2020-08-24 13:14 | CT_ITS ---
STUDY: CT CHEST WITHOUT CONTRAST REASON FOR EXAM: Female, 74 years old. MASS LEFT LUNG RADIATION DOSAGE (If Supplied By Facility): CTDIvol = ( 11.95 ) mGy, DLP = ( 384.61 ) mGycm TECHNIQUE: Transaxial imaging was performed without the administration of intravenous contrast material. Multiplanar coronal and sagittal images were reformatted. Individualized dose optimization techniques were used for this CT. COMPARISON: Comparison is made with prior examination dated 10/08/2019. FINDINGS: Stable 2.1 cm x 2.2 cm well-defined rounded mass in the left upper lobe. Minimal linear scarring is seen along the anterior aspect of the lingular segment of the left upper lobe. This is unchanged. There is no demonstrated pleural abnormality. Normal heart and pericardium. Normal mediastinum. Normal hilar regions. Normal unenhanced pulmonary arteries. There is atherosclerotic calcification of the aortic arch . There are degenerative changes of the thoracic spine. There is no demonstrated abnormality of the visualized upper abdomen. CT/Chest without Contrast IMPRESSION: Stable examination. Electronically Signed: Mikey Pierre, at 14:48 EDT , Service support ,
== END | disposition home or self-care (01) ==
LOC: CT 13:13
PROVIDERS: PCP Internal Medicine; Referring Provider Internal Medicine; Visit Provider Internal Medicine
DX: R91.8 Other nonspecific abnormal finding of lung field (principal)
CPT/HCPCS: 71250

== ENCOUNTER 2020-09-11 07:25 | Day surgery (SDC) | payer MEDICARE, OTHER, SELFPAY ==
[2020-08-10 14:45] VITALS: BMI 31.8
[2020-09-11 07:41] VITALS: BP 151/51; PULSE 75; RESP 16; TEMP 36.1; O2SAT 100; BMI 29.4
[2020-09-11] MEDS: Lactated Ringers 1,000 ML 100 ML IV (07:52)
--- NOTE | 2020-09-11 08:04 | PCM.HP.BLA ---
Problem List (1) Personal history of colonic polyps Status: Acute History and Physical Date of Admission: 09/11/20 Intake Intake Visit Reasons: CSCOPE/ DUE 3 YEARS Chief Complaint: c-scope Allergies clavulanic acid [From Augmentin] Allergy (Mild, Verified 08/10/20 14:22) GI upset amoxicillin [From Augmentin] Adverse Reaction (Mild, Verified 08/10/20 14:22) GI upset levofloxacin [From Levaquin] Adverse Reaction (Mild, Verified 08/10/20 14:22) gi upset [facility] Medical History (Updated 08/10/20 @ 14:[address] Teodoro Humphries MD) Personal history of colonic polyps (Acute) Globus sensation (Acute) Esophageal dysphagia (Acute) Arthritis (Acute) Carotid stenosis, bilateral (Acute) Dysphagia (Acute) GERD (gastroesophageal reflux disease) (Acute) knee pain (Acute) HTN (hypertension) (Chronic) Surgical History (Updated 01/22/19 @ 06:[address] Teodoro Humphries MD) History of cataract extraction (Acute) History of esophagogastroduodenoscopy (EGD) (Acute) History of hysterectomy (Acute) History of tonsillectomy (Acute) Status post debridement of bone spur (Acute) Social History (Updated 08/10/20 @ 14:[address] Teodoro Humphries MD) Smoking Status: Never smoker alcohol intake: never HPI HPI HPI: SACHIN LYNN, is a 74 F who presents to the office today for surgical consultation regarding a personal history of colon polyps. The patient has requested that I assist her with her colonoscopy. Her primary care physician is Dr. Sade Ocampo. She states that she may have had his many as 5 colonoscopies. Her most recent colonoscopy was April 10, 2017. At that time she had 3 small polyps. They were removed in the transverse colon and in the rectum and all of them were tubular adenomas. She denies family history of colon cancer. She denies bright red blood per rectum or melena. She otherwise enjoys good health. No unexpected weight loss. HPI HPI HPI: SACHIN LYNN, is a 74 F who presents to the office today for Exam Const General: cooperative, healthy appearing, comfortable, no acute distress Nutritional Appearance: overweight Orientation: alert, awake HENGA Head: normal to inspection Resp Effort & Inspection: normal respiratory effort Auscultation: clear to auscultation bilaterally Cardio Rate: regular rate Rhythm: regular rhythm GI Palpation: soft, no hepatosplenomegaly Auscultation: normal bowel sounds Neuro General: alert Extrem General: no calf tenderness Psych Affect: normal affect Assessment & Plan Problems 1. Personal history of colonic polyps Z86.010 Plan 74-year-old female with a personal history of colon polyps. Most recent colonoscopy was March 2017. I propose for a colonoscopy with possible biopsy or polypectomy as indicated. I discussed the technique, benefit, risk and alternatives. She has had an opportunity to ask and have questions answered. We will schedule and proceed at her discretion. I appreciate the ongoing opportunity of assisting with her surgical care Teodoro Humphries M.D., F.A.C.S. Coding Level of Care Code Off vis,est,level 2 Diagnoses Personal history of colonic polyps Z86.010 I have re-examined the patient. There are no clinical changes since date of exam. Procedure Criteria Procedure Type: Elective COVID Risk Discussion: The surgeon/proceduralist and patient have discussed in detail the risk of exposure to and/or potential harm posed by the COVID-19 virus with having a surgery/procedure at this time versus the risk of delaying the surgery/procedure. It is not possible to know either the risk of delaying the surgery or procedure or chance of getting an infection with perfect accuracy, but a joint decision was made between the patient and the surgeon/proceduralist to proceed at this time with the scheduled surgery/procedure as indicated on the consent form.
--- NOTE | 2020-09-11 08:30 | COLBX_PTH ---
PATIENT: SACHIN LYNN LOC: EN U#:[id number] AGE/SX: 74/F ROOM: RE09/11/[address]: Dr. Teodoro Humphries MD : 1945 BED: DIS: 09/11/2020 SPEC #: [id number] RECD: 09/11/20 11:26 STATUS: RONALD CYNTHIA #: [id number] BRISEIDA: 09/11/20 08:[address]: Teodoro Humphries DEPT: SURGICAL PATHOLOGY RECD BY: Sadie Arango ENTERED: 09/11/20 12:17 SP TYPE: COLON BX MICHAEL DR: Dr. Sade Ocampo MD Tissues: A - Transverse colon B - Transverse colon C - Descending colon D - Sigmoid colon biopsy Procedures: Surgery Specimen Level IV HEADER OPERATION: Colonoscopy (MAC) PRE-OP DIAGNOSIS: Colonic polyps TISSUE SUBMITTED: A - Proximal transverse polyp, B - Distal transverse polyp, C - Descending polyp, D - Biopsy of sigmoid polyp MICROSCOPIC DIAGNOSIS A. Proximal transverse colon polyp, biopsy: Tubular adenoma. B. Distal transverse colon polyp, biopsy: Tubular adenoma. Fragments of fecal material. C. Descending colon polyp, biopsy: Tubular adenoma. D. Sigmoid polyp, biopsy: Fragments of colonic mucosa with focal hyperplastic changes. DAVIDSON:mendy 09/14/20 MICROSCOPIC DESCRIPTION Slides are reviewed. GROSS DESCRIPTION A - Received in fixative is one container labeled with the patient's name and designated proximal transverse polyp. The specimen consists of a piece of solo-pink polyp measuring 0.4 x 0.4 x 0.2 cm. The specimen is totally submitted in one cassette. B - Received in fixative is one container labeled with the patient's name and designated distal transverse polyp. The specimen consists of multiple irregular fragments of light solo soft tissue that in aggregate measure 0.5 x 0.2 x 0.1 cm. The specimen is totally submitted in one cassette. C - Received in fixative is one container labeled with the patient's name and designated descending polyp. The specimen consists of one irregular fragment of light solo soft tissue that measures 0.3 x 0.2 x 0.1 cm. The specimen is totally submitted in one cassette. D - Received in fixative is one container labeled with the patient's name and designated biopsy of sigmoid polyp. The specimen consists of two irregular fragments of light solo soft tissue that in aggregate measure 0.4 x 0.2 x 0.1 cm. The specimen is totally submitted in one cassette. / SJ:mendy 09/11/20 TC:1 CPT: 49776 x4
[2020-09-11 08:45] VITALS: BP 122/61; BP 142/60; PULSE 74; RESP 20; TEMP 36.4; O2SAT 100
--- NOTE | 2020-09-11 08:45 | OP.COLON_ITS ---
Patient Name: Emeli Stephenson Procedure Date: 09/11/2020 8:06 AM Date of : 1945 Age: 74 Procedure: Colonoscopy Indications: High risk colon cancer surveillance: Personal history of colonic polyps Providers: Teodoro Humphries MD Referring MD: Sade Ocampo Medicines: See the Anesthesia note for documentation of the administered medications Patient Profile: Last Colonoscopy: March 2017. Complications: No immediate complications. Procedure: Pre-Anesthesia Assessment: - Prior to the procedure, a History and Physical was performed, and patient medications and allergies were reviewed. The patient's tolerance of previous anesthesia was also reviewed. The risks and benefits of the procedure and the sedation options and risks were discussed with the patient. All questions were answered, and informed consent was obtained. Prior Anticoagulants: The patient has taken no previous anticoagulant or antiplatelet agents. ASA Grade Assessment: II - A patient with mild systemic disease. After reviewing the risks and benefits, the patient was deemed in satisfactory condition to undergo the procedure. After I obtained informed consent, the scope was passed under direct vision. Throughout the procedure, the patient's blood pressure, pulse, and oxygen saturations were monitored continuously. The Colonoscope was introduced through the anus and advanced to the cecum, identified by appendiceal orifice and ileocecal valve. The colonoscopy was performed without difficulty. The patient tolerated the procedure well. The quality of the bowel preparation was good. Scope In: 8:18:23 AM Scope Withdrawal Time 0 hours 15 minutes 6 seconds Scope Out: 8:39:15 AM Total Procedure Duration Time 0 hours 20 minutes 52 seconds Findings: The digital rectal exam findings include non-thrombosed external hemorrhoids, non-thrombosed internal hemorrhoids and internal hemorrhoids that prolapse with straining, but spontaneously regress to the resting position (Grade II). A 8 mm polyp was found in the proximal transverse colon. The polyp was sessile. The polyp was removed with a hot snare. Resection and retrieval were complete. A 7 mm polyp was found in the distal transverse colon. The polyp was sessile. The polyp was removed with a hot snare. Resection and retrieval were complete. A 5 mm polyp was found in the descending colon. The polyp was sessile. The polyp was removed with a hot snare. Resection and retrieval were complete. A 4 mm polyp was found in the sigmoid colon. The polyp was sessile. The polyp was removed with a cold biopsy forceps. Resection and retrieval were complete. Scattered diverticula were found in the sigmoid colon. Impression: - Non-thrombosed external hemorrhoids, non-thrombosed internal hemorrhoids and internal hemorrhoids that prolapse with straining, but spontaneously regress to the resting position (Grade II) found on digital rectal exam. - One 8 mm polyp in the proximal transverse colon, removed with a hot snare. Resected and retrieved. - One 7 mm polyp in the distal transverse colon, removed with a hot snare. Resected and retrieved. - One 5 mm polyp in the descending colon, removed with a hot snare. Resected and retrieved. - One 4 mm polyp in the sigmoid colon, removed with a cold biopsy forceps. Resected and retrieved. - Diverticulosis in the sigmoid colon. Recommendation: - Discharge patient to home. - Resume previous diet. - Continue present medications. - Repeat colonoscopy in 3 years for surveillance. - Telephone my office for pathology results in 1 week. Procedure Code(s): --- Professional --- 68097, Colonoscopy, flexible; with removal of tumor(s), polyp(s), or other lesion(s) by snare technique 74199, 59, Colonoscopy, flexible; with biopsy, single or multiple Diagnosis Code(s): --- Professional --- Z86.010, Personal history of colonic polyps K64.1, Second degree hemorrhoids K64.4, Residual hemorrhoidal skin tags D12.3, Benign neoplasm of transverse colon (hepatic flexure or splenic flexure) D12.4, Benign neoplasm of descending colon D12.5, Benign neoplasm of sigmoid colon K57.30, Diverticulosis of large intestine without perforation or abscess without bleeding CPT copyright 2017 [employer]. All rights reserved. The codes documented in this report are preliminary and upon medical coder review may be revised to meet current compliance requirements. Teodoro Humphries MD 09/11/2020 8:44:44 AM This report has been signed electronically. Number of Addenda: 0 Note Initiated On: 09/11/2020 8:06 AM
--- NOTE | 2020-09-11 08:45 | OP.CCLET_ITS ---
09/11/2020 Sade Ocampo Re : Colonoscopy procedure for Emeli Rojas Damaris This procedure was performed on Friday, September 11, 2020. My impressions and recommendations are as follows: Impressions : - Non-thrombosed external hemorrhoids, non-thrombosed internal hemorrhoids and internal hemorrhoids that prolapse with straining, but spontaneously regress to the resting position (Grade II) found on digital rectal exam. - One 8 mm polyp in the proximal transverse colon, removed with a hot snare. Resected and retrieved. - One 7 mm polyp in the distal transverse colon, removed with a hot snare. Resected and retrieved. - One 5 mm polyp in the descending colon, removed with a hot snare. Resected and retrieved. - One 4 mm polyp in the sigmoid colon, removed with a cold biopsy forceps. Resected and retrieved. - Diverticulosis in the sigmoid colon. Recommendations : - Discharge patient to home. - Resume previous diet. - Continue present medications. - Repeat colonoscopy in 3 years for surveillance. - Telephone my office for pathology results in 1 week. My findings are described in the full procedure note, which is enclosed. If I can be of further assistance, please feel free to contact me at Doctor phone number(s): Work: . Sincerely, Teodoro Humphries MD 09/11/2020 8:44:44 AM This report has been signed electronically.
[2020-09-11 08:50] VITALS: BP 124/53; BP 142/60; PULSE 74; RESP 16; O2SAT 100
[2020-09-11 08:55] VITALS: BP 127/56; BP 142/60; PULSE 73; RESP 16; O2SAT 100
[2020-09-11 09:00] VITALS: BP 126/59; BP 142/60; PULSE 70; RESP 16; TEMP 36.3; O2SAT 100
[2020-09-11 09:30] VITALS: BP 142/60
== END 2020-09-11 09:41 | disposition home or self-care (01) ==
LOC: EN 07:25 → AC 07:25
PROVIDERS: PCP Internal Medicine; Referring Provider Internal Medicine; Visit Provider Surgery
PROC: 0DJD8ZZ Inspection of Lower Intestinal Tract, Via Natural or Artificial Opening Endoscopic (ICD-10-PCS; CPT 45378; principal; 2020-09-11 08:25)
DX: D12.4 Benign neoplasm of descending colon (principal); D12.3 Benign neoplasm of transverse colon; K57.30 Diverticulosis of large intestine without perforation or abscess without bleeding; K64.1 Second degree hemorrhoids; Z87.19 Personal history of other diseases of the digestive system; M19.90 Unspecified osteoarthritis, unspecified site; K21.9 Gastro-esophageal reflux disease without esophagitis; I10 Essential (primary) hypertension; Z79.899 Other long term (current) drug therapy; E78.00 Pure hypercholesterolemia, unspecified
CPT/HCPCS: 45380; 87426; 88305; C9803; J7120; J2405

== ENCOUNTER → 2021-06-21 12:30 | Outpatient (CLI) | payer MEDICARE, OTHER, SELFPAY ==
--- NOTE | 2021-06-21 12:41 | MRI_ITS ---
STUDY: MRI RIGHT KNEE REASON FOR EXAM: Lateral and posterior right knee pain for 2 months, no specific injury no history of surgery. TECHNIQUE: Standardized fat and water weighted pulse sequences were obtained in all 3 orthogonal planes. COMPARISON: MRI images 03/09/2016. FINDINGS: There is tear/degeneration of the posterior horn and body of the medial meniscus (proton-density sagittal images 27-33; proton-density coronal images 16-22) and a small horizontal tear of the free margin of the anterior horn of the medial meniscus (proton-density sagittal images 30, 31). There is peripheral subluxation of the medial meniscus. There is increased arthrosis of the medial femorotibial compartment with marginal osteophytes, chondral loss (T2 sagittal image 17) and mild subchondral cystic change Normal medial collateral ligamentous complex (MCL). Normal distal semimembranosus, gracilis and semitendinosus tendons. Normal lateral meniscus. There is mild arthrosis of the lateral femorotibial compartment with mild partial-thickness chondral loss (T2 sagittal image 8). Normal lateral femoral condyle and tibial plateau. Normal proximal tibiofibular articulation. Normal lateral collateral (fibular) ligament. Normal popliteus tendon. Normal biceps femoris tendon. There is an anterior cruciate ligament cyst (T2 sagittal image 12). Normal posterior cruciate ligament (PCL). Normal congruent patellofemoral articulation. There is arthrosis of the patellofemoral compartment with chondral thinning (T2 sagittal image 9). Normal medial and lateral patellar retinaculum. Normal quadriceps tendon. Normal patellar tendon. Normal Hoffa''s fat pad. There is a minimal volume of fluid in the knee joint. There is an intra-articular body adjacent to the root of the anterior horn of the lateral meniscus (proton-density sagittal image 16) measuring 0.8 cm in AP dimension. There is a thin medial patellar plica. There is a small popliteal cyst (T2 sagittal images 17-20). The otherwise visualized osseous structures are unremarkable. MRI/Lower Ext Joint Only (Routine) IMPRESSION: Medial meniscal tear/degeneration. Tricompartmental arthrosis. Intra-articular body. Small popliteal cyst. Electronically Signed: Tony Cesar MD at 14:03 EDT Tel , Service support ,
== END ==
PROVIDERS: PCP Internal Medicine
DX: M25.561 Pain in right knee (principal)
CPT/HCPCS: 73721

== ENCOUNTER → 2021-08-18 16:13 | Outpatient (CLI) | payer MEDICARE, OTHER, SELFPAY ==
--- NOTE | 2021-08-18 16:16 | BI_ITS ---
MAMMOGRAPHY - BILATERAL SCREENING REASON FOR EXAM: Female, 75 years old. Routine annual screening examination. PERTINENT HISTORY: Grandmother with breast cancer. TECHNIQUE: Digital bilateral breast lj (3D mammographic acquisition) in the CC and MLO projections. 2-D mediolateral oblique (MLO) and craniocaudad (CC) views of both breasts were obtained. CAD: Full Field Digital Mammography with Computer Added Detection was performed. COMPARISON: Comparison is made with prior study 07/21/2020 and 04/11/2019. FINDINGS: Breast Composition: There are scattered areas of fibroglandular density. There are no dominant masses or suspicious calcifications. No other significant abnormalities are identified. There has been no significant change since the prior study. BI/SCRN MAMM (CAD)W/LJ BILAT IMPRESSION: Stable bilateral screening mammogram. Yearly follow-up mammogram recommended. (A) ASSESSMENT CATEGORY: BIRADS Category 1: Negative. A letter regarding these results will be sent to the patient by the facility within 30 days. Approximately 10% of breast cancers are not detected by mammography. A normal mammogram should not delay biopsy of a clinically suspicious abnormality. [id number] Electronically Signed: Mikey Pierre MD at 8:48 EDT , Service support ,
== END ==
PROVIDERS: PCP Internal Medicine; Referring Provider Internal Medicine; Visit Provider Internal Medicine
DX: Z12.31 Encounter for screening mammogram for malignant neoplasm of breast (principal)
CPT/HCPCS: 77063; 77067

== ENCOUNTER → 2021-08-20 12:27 | Outpatient (CLI) | payer MEDICARE, OTHER, SELFPAY ==
--- NOTE | 2021-08-20 12:30 | MRI_ITS ---
ACR Level 3 findings have been noted. An addendum which confirms receipt of the report will follow. STUDY: MRI CERVICAL SPINE WITHOUT CONTRAST REASON FOR EXAM: Female, 75 years old. CERVICAL PAIN WITH DISC DISEASE, neck pain, left shoulder /arm pain TECHNIQUE: Standardized fat and water weighted pulse sequences were obtained in the sagittal and axial planes. COMPARISON: None FINDINGS: Normal foramen magnum and brainstem-cervical cord junction. Normal cervical lordosis. C2-3: There is minimal disc space narrowing and endplate spondylosis. There is no significant disc herniation, central canal or foraminal stenosis. C3-4: There is minimal disc space narrowing and endplates spondylosis. Minimal disc osteophyte complex uncovertebral and facet arthropathy without significant central canal or foraminal stenosis. C4-5: There is moderate disc space narrowing and endplates spondylosis. Moderate disc osteophyte complex and dorsal ligamentous buckling with severe central canal stenosis and impingement of the spinal cord without increased cord signal. Uncovertebral and facet arthropathy with severe right and severe left foraminal stenosis. C5-6: There is moderate disc space narrowing and endplates spondylosis. Moderate disc osteophyte complex with moderate central canal stenosis. Uncovertebral arthropathy with moderate right and moderate left foraminal stenosis. C6-7: There is minimal disc space narrowing and endplate spondylosis. There is no significant disc herniation, central canal or foraminal stenosis C7-T1: There is minimal disc space narrowing and endplate spondylosis. There is no significant disc herniation, central canal or foraminal stenosis MRI/Spine Cervical (Routine) IMPRESSION: C4/C5: Severe central canal stenosis with cord impingement. Severe right and severe left foraminal stenosis. C5/C6: Moderate central canal stenosis. Moderate right and moderate left foraminal stenosis. Electronically Signed: Toribio Pate MD at 9:37 EDT Tel , Service support ,
== END ==
PROVIDERS: PCP Internal Medicine; Referring Provider Internal Medicine; Visit Provider Internal Medicine
DX: M50.90 Cervical disc disorder, unspecified, unspecified cervical region (principal)
CPT/HCPCS: 72141

== ENCOUNTER → 2021-08-25 12:27 | Outpatient (CLI) | payer MEDICARE, OTHER, SELFPAY ==
--- NOTE | 2021-08-25 13:05 | VDLE_ITS ---
Reason For Study: RLE PAIN RIGHT GSV is normal. CFV is compressible, spontaneous, phasic, competent and demonstrates normal augmentation. FV is compressible, spontaneous, phasic, competent and demonstrates normal augmentation. POP V is compressible, spontaneous, phasic, competent and demonstrates normal augmentation. T/P Trunk is compressible. PTV is compressible. RT PerV is compressible. Procedure This is a venous duplex using B-mode, color flow and spectral Doppler. Exam performed in department. A preliminary report was called and/or faxed to [employer] @ [phone]. Some images have incorrect pt name. This study is for Emeli Stephenson #[id number]. VL/Venous Duplex US, Unilateral Interpretation Summary Deep veins of the right lower extremity are patent and compressible segmentally . There is no evidence of right lower extremity deep vein thrombosis. Valvular competence kj ears intact within the proximal deep venous system on the right . The right great saphenous vein a ppears patent and compressible segmentally. Ordering Physician: Tony Savage Referring Physician: Sade Ocampo Performed By: Shasha Peterson, LEV, RVT
== END ==
PROVIDERS: PCP Internal Medicine; Referring Provider Specialist; Visit Provider Specialist
DX: I73.89 Other specified peripheral vascular diseases (principal); M79.661 Pain in right lower leg; M17.11 Unilateral primary osteoarthritis, right knee
CPT/HCPCS: 93971

== ENCOUNTER → 2021-09-03 12:53 | Outpatient (CLI) | payer MEDICARE, OTHER, SELFPAY ==
--- NOTE | 2021-09-03 13:00 | ART_ITS ---
Reason For Study: PVD, RLE PAIN Procedure A bilateral lower extremity continuous wave Doppler with analog waveform analysis,segmental pressures,and ankle brachial indexes without exercise. Left Segmental Pressures Left brachial= 144mmHg. Left posterior tibial artery = 176mmHg. Left dorsalis pedis artery = 166mmHg. The left posterior tibial artery waveforms are triphasic. The left dorsalis pedis waveforms are triphasic. Right Segmental Pressures Right brachial= 154mmHg. Right posterior tibial artery = 184mmHg. Right dorsalis pedis artery = 172mmHg. The right posterior tibial artery waveforms are triphasic. The right dorsalis pedis waveforms are triphasic. Indices The right ankle brachial index by the posterior tibial artery is 1.19. The right ankle brachial index by the dorsalis pedis is 1.12. The left ankle brachial index by the posterior tibial artery is 1.14. The left ankle brachial index by the dorsalis pedis is 1.08. VL/Lower Ext Art Exam w/o Exercis Interpretation Summary Triphasic Doppler waveforms are noted at ankle level bilaterally. Pulse-volume recordings appear satisfactory at all levels bilaterally. Resting ankle-brachial indices are norm al bilaterally. There is no evidence of significant arterial occlusive disease in the lower ext remities bilaterally. Ordering Physician: Tony Savage Referring Physician: Sade Ocampo Performed By: Shasha Peterson RVT, RDCS
== END ==
PROVIDERS: PCP Internal Medicine; Referring Provider Specialist; Visit Provider Specialist
DX: I73.89 Other specified peripheral vascular diseases (principal); M17.11 Unilateral primary osteoarthritis, right knee; M79.661 Pain in right lower leg
CPT/HCPCS: 93923

== ENCOUNTER → 2021-10-14 14:38 | Outpatient (CLI) | payer MEDICARE, OTHER, SELFPAY ==
--- NOTE | 2021-10-14 12:50 | RAD_ITS ---
STUDY: X-RAY - CERVICAL SPINE REASON FOR EXAM: Female, 75 years old. NECK PAIN TECHNIQUE: XR Spine Cervical 2 or 3 Views COMPARISON: None FINDINGS: Normal anterior atlantoaxial articulation. The odontoid process is obscured by the overlying hard palate on the open mouth view. Therefore, it is not fully evaluated by plain film. There is straightening of the normal cervical lordosis. There is multi-level endplate spondylosis. There is multi-level degenerative disc disease with multilevel disc space narrowing. There is multi-level osseous foraminal stenosis. The soft tissue structures are unremarkable. RAD/Cerv Spine 2 or 3 Views IMPRESSION: There are degenerative changes as noted above. The odontoid process is obscured by the overlying hard palate on the open mouth view. Therefore, it is not fully evaluated by plain film. Electronically Signed: Stef Doyle MD at 20:58 EST , Service support ,
== END ==
PROVIDERS: PCP Internal Medicine; Referring Provider Orthopaedic Surgery; Visit Provider Orthopaedic Surgery
DX: M54.59 Other low back pain (principal)
CPT/HCPCS: 72040

== ENCOUNTER → 2021-10-28 12:43 | Outpatient (CLI) | payer MEDICARE, OTHER, SELFPAY ==
--- NOTE | 2021-10-28 12:44 | CDU_ITS ---
Reason For Study: STENOSIS Rt. Velocities/BP Lt. Velocities/BP Prox CCA 109.1/18.6 cm/sec. Prox CCA 136.2/22.3 cm/sec. Mid CCA 101.2/20.3 cm/sec. Mid CCA 94.2/24.8 cm/sec. Dist CCA 81.6/15.1 cm/sec. Dist CCA 90.6/19.4 cm/sec. Prox ICA 221.7/55.9 cm/sec. Prox ICA 80.3/25.5 cm/sec. Mid ICA 193.2/30.0 cm/sec. Mid ICA 124.2/32.0 cm/sec. Dist ICA 123.3/40.4 cm/sec. Dist ICA 133.0/38.6 cm/sec. Rt. ICA/CCA = 2.2. Lt. ICA/CCA = 1.4. Prox ECA 133.7/11.9 cm/sec. Prox ECA 172.5/12.3 cm/sec. Rt. Vert. 46.2/13.0 cm/sec. Lt. Vert. 65.0/16.7 cm/sec. Right Extracranial There is homogeneous, smooth atherosclerotic plaque noted in the right common carotid artery. There is heterogeneous, irregular atherosclerotic plaque noted in the right internal carotid artery. There is heterogeneous, irregular atherosclerotic plaque noted in the right external carotid artery. Antegrade flow is noted in the right vertebral artery. There is heterogeneous, irregular atherosclerotic plaque noted in the left bulb. Left Extracranial There is homogeneous, smooth atherosclerotic plaque noted in the left common carotid artery. There is homogeneous, irregular atherosclerotic plaque noted in the left internal carotid artery. There is homogeneous, smooth atherosclerotic plaque noted in the left external carotid artery. Antegrade flow is noted in the left vertebral artery. There is heterogeneous, irregular atherosclerotic plaque noted in the left bulb. Procedure Carotid Duplex 52213. Exam performed in department. VL/Carotid Duplex Ultrasound Interpretation Summary Moderate (50-69%) stenosis right extracranial internal carotid. Mild (<50%) mitra nosis left extracranial internal carotid. Flow within the vertebral arteries is antegrade bilaterally. Heterogeneous, irregular atherosclerotic plaque is noted in the carotid bulbs b ilaterally, which does not appear hemodynamically significant. Ordering Physician: Sade Ocampo Referring Physician: Sade Ocampo Performed By: Maddie Juan, LEV, RVT
== END ==
PROVIDERS: PCP Internal Medicine; Referring Provider Internal Medicine; Visit Provider Internal Medicine
DX: I65.23 Occlusion and stenosis of bilateral carotid arteries (principal)
CPT/HCPCS: 93880

== ENCOUNTER 2021-11-02 14:03 | Outpatient (CLI) | payer MEDICARE, OTHER, SELFPAY ==
--- NOTE | 2021-11-02 14:25 | RAD_ITS ---
INDICATION: PRE-OP EXAMINATION/TECHNIQUE: X-RAY - XR Chest 2 Views COMPARISON: CT chest 08/24/2020. CT chest from 04/17/2018. FINDINGS: LINES/DEVICES: None. LUNGS: Symmetric, normal lung volumes. No acute airspace opacity or abnormal post initial pattern. No pleural effusion or pneumothorax. 2.6 x 3.3 cm rounded left upper lobe mass is most likely unchanged compared to prior exam. Apparent increase in size likely due to differences in technique. MEDIASTINUM AND CARDIOVASCULAR STRUCTURES: Normal size and contour of the cardiomediastinal silhouette. No evidence of pulmonary vascular congestion. BONES AND SOFT TISSUES: No abnormality within limits of the exam. RAD/Chest PA and Lateral IMPRESSION: 1. No radiographic evidence of acute cardiopulmonary disease. 2. Left upper lobe mass unchanged dating back to 04/17/2018. Electronically Signed: hCristian Hua DO at 21:34 EST Tel , Service support ,
== END 2021-11-02 23:59 | disposition short-term general hospital (02) ==
LOC: RAD 14:12
PROVIDERS: PCP Internal Medicine; Referring Provider Orthopaedic Surgery; Visit Provider Orthopaedic Surgery
DX: Z01.811 Encounter for preprocedural respiratory examination (principal); R91.8 Other nonspecific abnormal finding of lung field
CPT/HCPCS: 71046

== ENCOUNTER 2022-01-18 13:01 | Outpatient (CLI) | payer MEDICARE, OTHER, SELFPAY ==
--- NOTE | 2022-01-18 13:15 | RAD_ITS ---
STUDY: CERVICAL SPINE X-RAY SERIES (2 VIEWS) OF 1226 HOURS ON 01/18/2022 REASON FOR EXAM: Female, 76 years old. CERVICAL STENOSIS TECHNIQUE: 2 view(s) of the cervical spine were obtained. COMPARISON: 10/14/2021. FINDINGS: Mild demineralization. No cervical vertebral body fractures, or subluxations. There is evidence of spacers in the C4-5 and C5-6 intervertebral disc spaces. There is mild narrowing of the C6-7 intervertebral disc space. The cervical spinal canal measures 1.6 cm in diameter at the C3 level, and 1.5 cm in diameter at the C5 level--both normal measurements. The posterior elements have a normal appearance. The prevertebral soft tissues are normal. RAD/Cerv Spine 2 or 3 Views IMPRESSION: 1. No fractures or subluxations. 2. Mild narrowing of the C6-7 intervertebral disc space. 3. Spacers are noted in the C4-C5 and C5-6 intervertebral disc spaces. 4. Normal AP diameters of the cervical spinal canal-does detailed above. 5. Normal posterior elements. 6. Mild demineralization. Electronically Signed: Maximo Rapp MD at 18:26 EDT ,
== END 2022-01-18 23:59 | disposition home or self-care (01) ==
LOC: RAD 13:04
PROVIDERS: PCP Internal Medicine; Referring Provider Orthopaedic Surgery; Visit Provider Orthopaedic Surgery
DX: N88.2 Stricture and stenosis of cervix uteri (principal)
CPT/HCPCS: 72040

== ENCOUNTER 2022-02-14 12:56 | Outpatient (CLI) | payer MEDICARE, OTHER, SELFPAY ==
--- NOTE | 2022-02-14 13:04 | RAD_ITS ---
INDICATION: CERVICAL STENOSIS EXAMINATION/TECHNIQUE: X-RAY - XR Spine Cervical 2 or 3 Views COMPARISON: 10/14/2021. FINDINGS: Mild lordosis of the columns of the cervical spine is visualized, no evidence of spondylolisthesis is seen. Anterior internal fixation of the C4 and C5 vertebral bodies and the C5 and C6 vertebral bodies is seen. Intervertebral disc spacers visualized at C4-C5 and C5-C6. No evidence of compression deformity of the cervical vertebral bodies, multilevel degenerative endplate changes seen. Unremarkable alignment of the lateral masses of C1 with C2. The prevertebral soft tissues are unremarkable. Limited evaluation of the upper lung mckinnon is unremarkable. RAD/Cerv Spine 2 or 3 Views IMPRESSION: Degenerative changes, no evidence of acute osseous abnormality. Electronically Signed: Jaycob Pack MD at 15:40 EDT ,
== END 2022-02-14 23:59 | disposition home or self-care (01) ==
LOC: RAD 12:58
PROVIDERS: PCP Internal Medicine; Visit Provider Orthopaedic Surgery
DX: M48.02 Spinal stenosis, cervical region (principal)
CPT/HCPCS: 72040

== ENCOUNTER → 2022-04-18 | Outpatient (CLI) | payer MEDICARE, OTHER, SELFPAY ==
--- NOTE | 2022-04-18 12:45 | RAD_ITS ---
STUDY: X-RAY - CERVICAL SPINE REASON FOR EXAM: Female, 76 years old. SPINAL STENOSIS TECHNIQUE: 3 view(s) of the cervical spine were obtained. COMPARISON: 02/14/2022 FINDINGS: Normal anterior atlantoaxial articulation. Normal odontoid process. Normal cervical lordosis. Normal vertebral bodies and endplates. Status post anterior cervical discectomy and fusion at C4/C5 and C5/C6 with anatomic alignment. Normal visualized intervertebral neuroforamina. The soft tissue structures are unremarkable. RAD/Cerv Spine 2 or 3 Views IMPRESSION: No change from 02/14/2022. Electronically Signed: Blane Patricia MD at 16:25 EDT ,
== END | disposition home or self-care (01) ==
PROVIDERS: PCP Internal Medicine; Referring Provider Orthopaedic Surgery; Visit Provider Orthopaedic Surgery
DX: M48.02 Spinal stenosis, cervical region (principal)
CPT/HCPCS: 72040

== ENCOUNTER → 2022-07-11 | Outpatient (CLI) | payer MEDICARE, OTHER, SELFPAY ==
--- NOTE | 2022-07-11 11:27 | RAD_ITS ---
EXAM: XR CERVICAL SPINE, 2 OR 3 VIEWS CLINICAL INDICATION: CERVICAL SPINE STENOSIS TECHNIQUE: Frontal and lateral views of the cervical spine. This report was created using Code [employer] report generation technology. COMPARISON: 02/14/2022 FINDINGS: VERTEBRAE: Alignment is maintained. Preserved vertebral body height. No acute fracture. No spondylolisthesis. Preservation of the normal cervical lordosis. No significant facet arthropathy. DISC SPACES: Unremarkable. Disc spaces are maintained. SOFT TISSUES: Unremarkable. No prevertebral soft tissue widening. LUNG APICES: Clear. TUBES, LINES AND DEVICES: Fusion device at C4-5 and C5-6. Stable findings. RAD/Cerv Spine 2 or 3 Views IMPRESSION: Fusion device at C4-5 and C5-6. Stable findings. Electronically Signed: Stef Doyle MD at 14:07 EDT ,
== END | disposition home or self-care (01) ==
LOC: RAD 11:22
PROVIDERS: PCP Internal Medicine; Referring Provider Orthopaedic Surgery; Visit Provider Orthopaedic Surgery
DX: M48.02 Spinal stenosis, cervical region (principal)
CPT/HCPCS: 72040

== ENCOUNTER → 2022-08-17 | Outpatient (CLI) | payer MEDICARE, OTHER, SELFPAY ==
--- NOTE | 2022-08-17 10:00 | CYSPIN_PTH ---
PATIENT: SACHIN LYNN LOC: [facility] U#:[id number] AGE/SX: 76/F ROOM: RE08/17/[address]: Dr. Lora Lima MD : 1945 BED: DIS: 08/17/2022 SPEC #: [id number] RECD: 08/18/22 08:31 STATUS: RONALD RETremaine #: [id number] BRISEIDA: 08/17/22 10:[address]: Lora Lima DEPT: CYTOLOGY RECD BY: Kylie Sanchez ENTERED: 08/18/22 08:32 SP TYPE: CYSPIN FL OTHR DR: Dr. Sade Ocampo MD Tissues: Urine Procedures: Pap Stain (control) Special Stain Group II Cytospin Fluid HEADER OPERATION: Not noted PRE-OP DIAGNOSIS: Gross hematuria TISSUE SUBMITTED: Urine for cytology DIAGNOSIS CYTOLOGY Urine for cytology (cytospin): Rare atypical cells noted ([facility], Christina System Category III). See comment. SJ:mendy 08/18/2022 COMMENT The specimen is bloody. The Christina System for urine cytology diagnostic categorization was used in the evaluation of this case. Case has been reviewed in consultation with Dr. Taylor who concurs with the above diagnosis. IDC:AM CYTOLOGY STUDY Slides are reviewed. CYTOLOGY GROSS Received is 15 ml of yellow cloudy fluid labeled with the patient's name and and designated per the requisition as urine. Submitted for cytology preparation. / mendy 08/18/2022 TC:5 CPT: 51061
[2022-08-17 17:45] LABS: Cytology, Body Fluid / CSF SEE PATHOLOGY REPORT
== END | disposition home or self-care (01) ==
PROVIDERS: PCP Internal Medicine; Visit Provider Urology
DX: R31.0 Gross hematuria (principal)
CPT/HCPCS: 88108; 88313

== ENCOUNTER → 2022-08-19 | Outpatient (CLI) | payer MEDICARE, OTHER, SELFPAY ==
--- NOTE | 2022-08-19 15:30 | CT_ITS ---
INDICATION: GROSS HEMATURIA EXAMINATION: CT Abdomen And Pelvis WO/W Contrast Injection TECHNIQUE: Helically acquired images were obtained of the abdomen and pelvis after IV contrast. A radiation dose optimization technique was used for this scan. IV Contrast dosage and agent: IV 100mL Isovue-300 Oral contrast: None. COMPARISON: None. FINDINGS: Visualized lung bases: Unremarkable Liver: Diffusely hypodense consistent with fatty liver. Gallbladder: Multiple tiny gallstones without cholecystitis. Spleen: Unremarkable . There is a 1.7 cm accessory spleen noted. Pancreas: Unremarkable Adrenal Glands: Unremarkable Kidneys: Unremarkable Vasculature: Unremarkable GI Tract: Nondistended fluid-filled small bowel loops consistent with ileus. Scattered colonic diverticula without CT evidence of acute diverticulitis. Appendix not visualized Lymphadenopathy: None Peritoneum: No ascites. Bladder: Bladder distends normally, there is a concerning 1.11 x 1.08 x 1.08 cm mass in the left wall of the bladder, in the setting of hematuria this is concerning for neoplastic process and cystoscopy is recommended for further evaluation. There is a punctate bubble of air within the bladder perhaps from recent catheterization. Reproductive organs: Status post hysterectomy. Bones/Soft tissues: Mild degenerative bony changes, no suspicious lytic or blastic bony lesion. CT/CT Abd/Pelvis W/WO Contrast IMPRESSION: Bladder distends normally but contains a 1.01 cm lesion anterior to the left wall of the bladder. In the setting of hematuria this is concerning for polyp or neoplasm and further evaluation with cystoscopy is recommended Fatty liver, no discrete lesion Cholelithiasis Small bowel ileus Scattered colonic diverticula, no CT evidence of acute diverticulitis. Degenerative bony changes Electronically Signed: Elijah Campbell MD at 11:00 EDT ,
[2022-08-19 15:58] LABS: Anion Gap 6 (5-15); BUN 17 mg/dL (7-18); Calcium,Total 9.4 mg/dL (8.5-10.1); Chloride 105 mmol/L (98-107); Creatinine, Serum 0.85 mg/dL (0.55-1.02); EST Glomerular Filtration Rate 69 mL/min (>60); Est Glom Filt Rate - Afr Amer 83 mL/min (>60); Glucose 129 mg/dL (74-106); Potassium 3.9 mmol/L (3.5-5.1); Sodium Level 140 mmol/L (136-145)
== END | disposition home or self-care (01) ==
LOC: CT 15:14
PROVIDERS: PCP Internal Medicine; Visit Provider Urology
DX: R31.0 Gross hematuria (principal)
CPT/HCPCS: 36415; 74178; 80048; Q9967

== ENCOUNTER → 2022-10-14 | Outpatient (CLI) | payer MEDICARE, OTHER, SELFPAY ==
--- NOTE | 2022-10-14 14:42 | BI_ITS ---
MAMMOGRAPHY - BILATERAL SCREENING REASON FOR EXAM: Female, 76 years old. Routine annual screening examination. PERTINENT HISTORY: Grandmother with breast cancer. TECHNIQUE: Digital bilateral breast lj (3D mammographic acquisition) in the CC and MLO projections. 2-D mediolateral oblique (MLO) and craniocaudad (CC) views of both breasts were obtained. CAD: Full Field Digital Mammography with Computer Added Detection was performed. COMPARISON: Comparison is made with prior study 08/18/2021 and 07/21/2020. FINDINGS: Breast Composition: There are scattered areas of fibroglandular density. There are no dominant masses or suspicious calcifications. Stable bilateral secretory calcifications more prominent in the right breast. No other significant abnormalities are identified. There has been no significant change since the prior study. BI/SCRN MAMM (CAD)W/LJ BILAT IMPRESSION: Stable bilateral screening mammogram. Yearly follow-up mammogram recommended. (A) ASSESSMENT CATEGORY: BIRADS Category 2: Benign. A letter regarding these results will be sent to the patient by the facility within 30 days. Approximately 10% of breast cancers are not detected by mammography. A normal mammogram should not delay biopsy of a clinically suspicious abnormality. [id number] Electronically Signed: Mikey Pierre MD at 15:02 EST ,
== END | disposition home or self-care (01) ==
LOC: OPBD 14:41
PROVIDERS: PCP Internal Medicine; Visit Provider Internal Medicine
DX: Z12.31 Encounter for screening mammogram for malignant neoplasm of breast (principal)
CPT/HCPCS: 77063; 77067

== ENCOUNTER → 2022-11-01 | Outpatient (CLI) | payer MEDICARE, OTHER, SELFPAY ==
--- NOTE | 2022-11-01 11:05 | BD_ITS ---
STUDY: DUAL ENERGY X-RAY ABSORPTIOMETRY / DXA REASON FOR EXAM: Female, 76 years old. [id number] TECHNIQUE: Bone Mineral Density (BMD) measurements of lumbar spine and bilateral hips were obtained. COMPARISON: Comparison is made with prior study to 07/21/2020. FINDINGS: Lumbar Spine (L1-L4): g/cm2 (1.190) / T-score (1.2) / Z-score (3.8) Findings are suggestive of normal bone density with a low fracture risk. Left Femur Total: g/cm2 (0.996) / T-score (0.4) / Z-score (2.3) Left Femoral Neck: g/cm2 (0.728) / T-score (-1.1) / Z-score (1.1) Right Femur Total: g/cm2 (0.948) / T-score (0.0) / Z-score (1.9) Right Femoral Neck: g/cm2 (0.755) / T-score (-0.9) / Z-score (1.3) The T-Scores on the most recent prior examination were: Lumbar Spine (L1-L4): There has been worsening of bone density since the previous examination. Left Femur Total: which represents an improvement of 9.9%. Right Femur Total: which represents an improvement of 3.4%. BD/Dexa Bone Density Study IMPRESSION: The patient is considered osteopenic as outlined below according to World Balta[place] Organization (WHO) criteria with a low fracture risk. There has been improvement of bone density since the previous examination. Reference Information: The T-score is the number of standard deviations above or below the standard which is normal for young adults at their peak bone mineral density. The World Health Organization (WHO) interprets the T-scores as follows: Above -1 Normal bone density Between -1 and -2.5 Osteopenia Equal to / or below -2.5 Osteoporosis As a practical clinical guideline, osteopenia may be graded as follows: Mild -1 through -1.5 Moderate -1.6 through -2.0 Severe -2.1 through -2.4 The Z-score is the number of standard deviations above or below age-matched controls. A Z-score of less than -1.5 would be considered abnormal. References: 1. NIH Osteoporosis and Related Bone Diseases www osteo.org 2. International Society for Clinical Densitometry www iscd.org 3. National Osteoporosis Foundation www nof.org Electronically Signed: Mikey Pierre MD at 13:20 EST ,
== END | disposition home or self-care (01) ==
LOC: OPBD 10:59
PROVIDERS: PCP Internal Medicine; Visit Provider Internal Medicine
DX: M85.80 Other specified disorders of bone density and structure, unspecified site (principal); Z12.31 Encounter for screening mammogram for malignant neoplasm of breast; Z78.0 Asymptomatic menopausal state
CPT/HCPCS: 77080

== ENCOUNTER → 2022-12-28 | Outpatient (CLI) | payer MEDICARE, OTHER, SELFPAY ==
--- NOTE | 2022-12-28 14:14 | RAD_ITS ---
HISTORY: SPONDYLOSIS CERVICAL. TECHNIQUE: XR Spine Cervical 2 or 3 Views. COMPARISON: 07/11/2022. FINDINGS: VERTEBRAE: Vertebral body heights maintained. No acute fracture identified. ALIGNMENT: No significant anterior or posterior subluxation. Preservation of the cervical lordosis. INTERVERTEBRAL DISCS: Unchanged appearance of interbody fusion hardware of C4-5 and C5-6. Mild intervertebral disc space narrowing and endplate change of C6/7 similar to prior. SOFT TISSUES: No significant prevertebral soft tissue swelling. RAD/Cerv Spine 2 or 3 Views IMPRESSION: No acute fracture or dislocation identified in the cervical spine. Unchanged appearance of C4-6 interbody fusion and mild spondylosis of C6-7. Electronically Signed: Jennifer Rodriguez MD at 9:28 EST ,
== END | disposition home or self-care (01) ==
PROVIDERS: PCP Internal Medicine; Visit Provider Orthopaedic Surgery
DX: M47.812 Spondylosis without myelopathy or radiculopathy, cervical region (principal)
CPT/HCPCS: 72040

== ENCOUNTER 2023-05-09 07:22 | Day surgery (SDC) | payer MEDICARE, OTHER, SELFPAY ==
--- NOTE | 2023-04-07 08:57 | HP.PCM_ITS ---
History and Physical Date of Admission: 04/07/23 Visit Reasons:?Lump in throat Chief Complaint: lump in throat Allergies clavulanic acid [From Augmentin] Allergy (Mild, Verified 02/07/23 10:06) GI upsetamoxicillin [From Augmentin] Adverse Reaction (Mild, Verified 02/07/23 10:06) GI upsetlevofloxacin [From Levaquin] Adverse Reaction (Mild, Verified 02/07/23 10:06) gi upset Medications losartan 100 mg-hydrochlorothiazide 12.5 mg tablet 1 tab PO DAILY 60 days ##60 12/18/17 [History Confirmed 02/07/23] biotin 5,000 mcg disintegrating tablet 10,000 mcg PO DAILY 08/10/20 [History Confirmed 02/07/23] calcium carbonate 600 mg calcium (1,500 mg) tablet 600 mg PO DAILY 08/10/20 [History Confirmed 02/07/23] ezetimibe 10 mg tablet 10 mg PO DAILY 08/10/20 [History Confirmed 02/07/23] metoprolol succinate 25 mg tablet,extended release 24 hr 25 mg PO QHS 08/10/20 [History Confirmed 02/07/23] aspirin 81 mg tablet,delayed release 81 mg PO DAILY 09/08/20 [History Confirmed 02/07/23] pantoprazole 40 mg tablet,delayed release 40 mg PO DAILY 09/08/20 [History Confirmed 02/07/23] gabapentin 300 mg capsule 300 mg PO DAILY 02/07/23 [History Confirmed 02/07/23] mirabegron 50 mg tablet,extended release 24 hr (Myrbetriq) 50 mg PO DAILY 02/07/23 [History Confirmed 02/07/23] PFS Medical History?(Updated 05/20/22 @ 09:28 by Zuleyma Keith) Arthritis Carotid stenosis, bilateral Dysphagia Esophageal dysphagia GERD (gastroesophageal reflux disease) Globus sensation HTN (hypertension) knee pain Personal history of colonic polyps Surgical History?(Updated 01/22/19 @ 06:[address] Teodoro Humphries MD) History of cataract extraction History of esophagogastroduodenoscopy (EGD) History of hysterectomy History of tonsillectomy Status post debridement of bone spur Family History?(Updated 11/09/18 @ 13:09 by Micehlle Martinez) Father Parkinson disease Carotid stenosis, bilateralGrandfather CVA (cerebral vascular accident)Grandmother Cancer ?? ? lung Social History?(Updated 08/10/20 @ 14:[address] Teodoro Humphries MD) Smoking Status:? Never smoker alcohol intake:? never HPI HPI HPI: 77-year-old female.? I have recently assisted her September 11, 2020 with a colonoscopy because of a personal history of colon polyps.? I removed 3 tubular adenomas and 1 hyperplastic polyp.? Because of a complaint of esophageal dysphagia on January 22, 2019 I performed an upper endoscopy.? Z-line was noted at 36 cm and was regular.? Gastric polyps were identified.? Duodenum appeared normal.? Pathology showed normal duodenum minimal chronic inflammation of the stomach benign gastric polyps.? There was some chronic inflammation at the EG junction no evidence of dysplasia.? Middle esophagus was not remarkable.? On October 16, 2018 she had to have a barium swallow.? Normal plain films of the esophagus.? 12 mm tablet appeared to get trapped at the GE junction. I have personally reviewed those images. Because of gross hematuria on August 19, [address] scan of the abdomen.? This demonstrated cholelithiasis and small bowel ileus.? Degenerative bone disease.? Diverticulosis. Multiple gallstones noted on my review.? On careful inspection of the EG junction I do not see anything specific at that location at that time.? I have personally reviewed these images It is of note that over the past year she has had multiple cervical spine x- rays.? Fusion device at C4-5 and C5-6 felt to be stable. Patient's notices a globus sensation that is getting worse.? She is not sure whether this was related to her anterior approach for her cervical fusion but symptoms have been present and are escalating.? She has trouble swallowing meats.? She has been chronically on her pantoprazole.? Her newly diagnosed bladder cancer was a surprise that she has not been exposed to chemicals or been a smoker.? She has 2 more chemotherapy treatments ongoing. No unexpected weight loss ROS General General: Yes fatigue; No weight change, appetite, colon cancer, breast cancer or weakness HEENT HEENT: Yes difficulty swallowing; No eye injury, eye surgery, swollen glands or hoarseness Endo Endocrine: No thyroid disease, diabetes mellitus, thyroid cancer, Hair loss, heat intolerance or cold intolerance Skin Skin: No rash or changing moles Breast Breast: No left breast lump, right breast lump, nipple discharge, breast pain, abnormal mammogram, abnormal US or breast enlargement Musc Musculoskeletal: Yes arthritis; No back problems, rheumatoid arthritis, gout or joint pain Cardio Cardiovascular: Yes high blood pressure; No murmur, pacemaker, heart disease, atrial fibrillation, heart attack, heart stent, palpitations, shortness of breat with exertion or chest pain Resp Respiratory: No shortness of breath, No sleep apnea, No cough, No COPD, No asthma, No emphysema and No wheezing Gastro Gastrointestinal: No abdominal pain, No nausea or vomiting, No diarrhea, No constipation, No blood in stool, Yes acid reflux, No hemorrhoids, No ulcers, No gallbladder problem and No black,tarry stools Rony Hematologic: No blood thinners, No blood disorders, No bleeding, No anemia and No blood clots Neuro Neurologic: No system reviewed and no additional complaints, except as documented, No as per HPI, No abnormal gait, No abnormal hearing, No abnormal movements, No abnormal speech, No behavioral changes, No burning sensations, No confusion, No convulsions, No disequilibrium, No dizziness, No localized weakness, No frequent falls, No headache(s), No lack of coordination, No loss of vision, No memory loss, No numbness, No other visual disturbances, No radicular pain, No restless legs, No sensory deficit, No syncope, No tingling, No tremor(s), No weakness and No other Exam Const General: cooperative, healthy appearing and comfortable Orientation: alert [facility] Head: normal to inspection Eyes General: appearance normal, both eyes and all related structures Neck Neck: normal visual inspection Chest Chest palpation & inspection: normal inspection of the chest Resp Effort & Inspection: normal respiratory effort Auscultation: clear to auscultation bilaterally Cardio Rate: regular rate Rhythm: regular rhythm GI Inspection: normal to inspection Palpation: soft and no hepatosplenomegaly Skin General: no rashes or lesions noted Neuro General: patient alert, patient awake and patient oriented x3 Extrem General: no calf tenderness Psych Appearance: grossly normal Assessment and Plan Assessment and Plan (1) Globus sensation: ?Status:?Acute (2) Esophageal dysphagia: ?Status:?Acute Plan For her Esophageal dysphagia with escalating symptoms.? A esophagogastroduodenoscopy with possible biopsy or dilatation is indicated.? Looking for potential for eosinophilic esophagitis or progressive reflux disease or obstructive phenomena like a Schatzki ring or active gastritis. She has had an opportunity ask and have questions answered.? We will schedule procedure at her discretion.? She is not on any anticoagulant. I appreciate the ongoing opportunity of assisting with her surgical care Copy: Dr. Sade Humphries M.D., F.A.C.S I have examined the patient and the H&P has been reviewed. There are no clinical changes since date of exam. Teodoro Humphries M.D., F.A.C.S.
[2023-04-07] MEDS: Lactated Ringers 1,000 ML 15 ML IV (09:04)
[2023-04-07 09:05] VITALS: BP 147/80; PULSE 70; RESP 18; TEMP 36.4; O2SAT 100; BMI 32.3
--- NOTE | 2023-04-07 10:49 | SUR.PREOP ---
Dr Humphries spoke with pt regarding cancelling procedure, director aware and spoke the pt as well. Plan is to reschedule procedure when able. Pt agrees with plan.
--- NOTE | 2023-05-09 | IMM_PTH ---
PATIENT: SACHIN LYNN LOC: [facility] U#:[id number] AGE/SX: 77/F ROOM: RE05/09/[address]: Dr. Teodoro Humphries MD : 1945 BED: DIS: 05/09/2023 SPEC #: [id number] RECD: 05/11/23 06:35 STATUS: RONALD RETremaine #: [id number] BRISEIDA: 05/09/23 00:[address]: Teodoro Humphries DEPT: IMMUNOHISTOCHEMISTRY RECD BY: Sadie Arango ENTERED: 05/11/23 06:36 SP TYPE: IMMUNO OTHR DR: Dr. Sade Ocampo MD Tissues: B - Gastric mucous membrane Procedures: H Pylori (initial) PHYSICIAN & INSTITUTION [place] [address] SPECIMEN INFORMATION: Tissue Source: Antrum Clinical Info: Globus sensation, esophageal dysphagia Specimen Number: [id number] CPT code: 84198 METHODOLOGY: Deparaffinized sections of prefer/formalin-fixed tissue or PAP/DQ stained slides are incubated with monoclonal/polyclonal antibodies/oligonucleotide probes. Localization is made via biotin free immunoperoxidase method. Appropriate controls are performed and reacted as expected. Results on target cell population are indicated in the following table: RESULTS: ANTIBODY / CLONE RESULT H Pylori (polyclonal) negative These tests were developed and their performance characteristics determined by [facility]. They may not have been cleared or approved by the U.S. Food and Drug Administration. The FDA has determined that such clearance or approval is not necessary. The above immunohistochemical/dualISH markers are ordered and reviewed by the Pathologist. INTERPRETATION: B. Antrum, biopsy: Negative for Helicobacter pylori organisms. AM:samra 05/11/23
--- NOTE | 2023-05-09 | GASB_PTH ---
PATIENT: SACHIN LYNN LOC: [facility] U#:[id number] AGE/SX: 77/F ROOM: RE05/09/[address]: Dr. Teodoro Humphries MD : 1945 BED: DIS: 05/09/2023 SPEC #: [id number] RECD: 05/09/23 09:24 STATUS: RONALD CYNTHIA #: [id number] BRISEIDA: 05/09/23 00:[address]: Teodoro Humphries DEPT: SURGICAL PATHOLOGY RECD BY: Edilson Edwards ENTERED: 05/10/23 09:25 SP TYPE: Gastric Bx OTHR DR: Dr. Sade Ocampo MD Tissues: A - Duodenum, NOS B - Gastric mucous membrane C - Stomach, NOS D - Esophageal mucous membrane Procedures: Surgery Specimen Level IV HEADER OPERATION: EGD PRE-OP DIAGNOSIS: Globus sensation, Esophageal dysphagia TISSUE SUBMITTED: A. Duodenum, B. Antrum, C. Greater curvature, D. Distal esophagus MICROSCOPIC DIAGNOSIS A. Duodenum, biopsy: No pathologic change. B. Gastric antrum, biopsy: Mild chronic inflammation. C. Stomach, greater curvature, biopsy: Fundic gland polyp. D. Distal esophagus, biopsy: Fragments of benign squamous mucosa. No evidence of inflammation. AM:elia 05/11/23 COMMENT B. The results of immunohistochemistry for Helicobacter pylori will be reported separately ([id number]). MICROSCOPIC DESCRIPTION Slides are reviewed. GROSS DESCRIPTION A. Received is one container labeled with the patient name and designated duodenum. The specimen consists of one irregular fragment of light solo soft tissue that measures 0.3 x .03 x 0.1 cm. The specimen is totally submitted in one cassette. B. Received is one container labeled with the patient name and designated antrum. The specimen consists of one irregular fragment of light solo soft tissue that measures 0.3 x 0.3 x 0.1 cm. The specimen is totally submitted in one cassette. C. Received is one container labeled with the patient name and designated greater curvature polyp. The specimen consists of two irregular fragments of light solo soft tissue that in aggregate measure 0.6 x 0.3 x 0.1 cm. The specimen is totally submitted in one cassette. / D. Received is one container labeled with the patient name and designated distal esophagus. The specimen consists of two irregular fragments of light solo soft tissue that in aggregate measure 0.4 x 0.2 x 0.1 cm. The specimen is totally submitted in one cassette. / SJ:samra 05/10/23 TC:3 CPT:14900 x4
[2023-05-09 07:59] VITALS: BP 148/62; PULSE 58; RESP 16; TEMP 36.2; O2SAT 98; BMI 32.5
--- NOTE | 2023-05-09 08:50 | PCM.HP.BLA ---
History and Physical Date of Admission: 05/09/23 Visit Reasons:?Lump in throat Chief Complaint: lump in throat Allergies clavulanic acid [From Augmentin] Allergy (Mild, Verified 02/07/23 10:06) GI upsetamoxicillin [From Augmentin] Adverse Reaction (Mild, Verified 02/07/23 10:06) GI upsetlevofloxacin [From Levaquin] Adverse Reaction (Mild, Verified 02/07/23 10:06) gi upset Medications losartan 100 mg-hydrochlorothiazide 12.5 mg tablet 1 tab PO DAILY 60 days ##60 12/18/17 [History Confirmed 02/07/23] biotin 5,000 mcg disintegrating tablet 10,000 mcg PO DAILY 08/10/20 [History Confirmed 02/07/23] calcium carbonate 600 mg calcium (1,500 mg) tablet 600 mg PO DAILY 08/10/20 [History Confirmed 02/07/23] ezetimibe 10 mg tablet 10 mg PO DAILY 08/10/20 [History Confirmed 02/07/23] metoprolol succinate 25 mg tablet,extended release 24 hr 25 mg PO QHS 08/10/20 [History Confirmed 02/07/23] aspirin 81 mg tablet,delayed release 81 mg PO DAILY 09/08/20 [History Confirmed 02/07/23] pantoprazole 40 mg tablet,delayed release 40 mg PO DAILY 09/08/20 [History Confirmed 02/07/23] gabapentin 300 mg capsule 300 mg PO DAILY 02/07/23 [History Confirmed 02/07/23] mirabegron 50 mg tablet,extended release 24 hr (Myrbetriq) 50 mg PO DAILY 02/07/23 [History Confirmed 02/07/23] PFS Medical History?(Updated 05/20/22 @ 09:28 by Zuleyma Keith) Arthritis Carotid stenosis, bilateral Dysphagia Esophageal dysphagia GERD (gastroesophageal reflux disease) Globus sensation HTN (hypertension) knee pain Personal history of colonic polyps Surgical History?(Updated 01/22/19 @ 06:[address] Teodoro Humphries MD) History of cataract extraction History of esophagogastroduodenoscopy (EGD) History of hysterectomy History of tonsillectomy Status post debridement of bone spur Family History?(Updated 11/09/18 @ 13:09 by Michelle Martinez) Father Parkinson disease Carotid stenosis, bilateralGrandfather CVA (cerebral vascular accident)Grandmother Cancer ?? ? lung Social History?(Updated 08/10/20 @ 14:[address] Teodoro Humphries MD) Smoking Status:? Never smoker alcohol intake:? never HPI HPI HPI: 77-year-old female.? I have recently assisted her September 11, 2020 with a colonoscopy because of a personal history of colon polyps.? I removed 3 tubular adenomas and 1 hyperplastic polyp.? Because of a complaint of esophageal dysphagia on January 22, 2019 I performed an upper endoscopy.? Z-line was noted at 36 cm and was regular.? Gastric polyps were identified.? Duodenum appeared normal.? Pathology showed normal duodenum minimal chronic inflammation of the stomach benign gastric polyps.? There was some chronic inflammation at the EG junction no evidence of dysplasia.? Middle esophagus was not remarkable.? On October 16, 2018 she had to have a barium swallow.? Normal plain films of the esophagus.? 12 mm tablet appeared to get trapped at the GE junction. I have personally reviewed those images. Because of gross hematuria on August 19, [address] a CT scan of the abdomen.? This demonstrated cholelithiasis and small bowel ileus.? Degenerative bone disease.? Diverticulosis. Multiple gallstones noted on my review.? On careful inspection of the EG junction I do not see anything specific at that location at that time.? I have personally reviewed these images It is of note that over the past year she has had multiple cervical spine x-rays.? Fusion device at C4-5 and C5-6 felt to be stable. Patient's notices a globus sensation that is getting worse.? She is not sure whether this was related to her anterior approach for her cervical fusion but symptoms have been present and are escalating.? She has trouble swallowing meats.? She has been chronically on her pantoprazole.? Her newly diagnosed bladder cancer was a surprise that she has not been exposed to chemicals or been a smoker.? She has 2 more chemotherapy treatments ongoing. No unexpected weight loss ROS General General: Yes fatigue; No weight change, appetite, colon cancer, breast cancer or weakness HEENT HEENT: Yes difficulty swallowing; No eye injury, eye surgery, swollen glands or hoarseness Endo Endocrine: No thyroid disease, diabetes mellitus, thyroid cancer, Hair loss, heat intolerance or cold intolerance Skin Skin: No rash or changing moles Breast Breast: No left breast lump, right breast lump, nipple discharge, breast pain, abnormal mammogram, abnormal US or breast enlargement Musc Musculoskeletal: Yes arthritis; No back problems, rheumatoid arthritis, gout or joint pain Cardio Cardiovascular: Yes high blood pressure; No murmur, pacemaker, heart disease, atrial fibrillation, heart attack, heart stent, palpitations, shortness of breat with exertion or chest pain Resp Respiratory: No shortness of breath, No sleep apnea, No cough, No COPD, No asthma, No emphysema and No wheezing Gastro Gastrointestinal: No abdominal pain, No nausea or vomiting, No diarrhea, No constipation, No blood in stool, Yes acid reflux, No hemorrhoids, No ulcers, No gallbladder problem and No black,tarry stools Rony Hematologic: No blood thinners, No blood disorders, No bleeding, No anemia and No blood clots Neuro Neurologic: No system reviewed and no additional complaints, except as documented, No as per HPI, No abnormal gait, No abnormal hearing, No abnormal movements, No abnormal speech, No behavioral changes, No burning sensations, No confusion, No convulsions, No disequilibrium, No dizziness, No localized weakness, No frequent falls, No headache(s), No lack of coordination, No loss of vision, No memory loss, No numbness, No other visual disturbances, No radicular pain, No restless legs, No sensory deficit, No syncope, No tingling, No tremor(s), No weakness and No other Exam Const General: cooperative, healthy appearing and comfortable Orientation: alert [facility] Head: normal to inspection Eyes General: appearance normal, both eyes and all related structures Neck Neck: normal visual inspection Chest Chest palpation & inspection: normal inspection of the chest Resp Effort & Inspection: normal respiratory effort Auscultation: clear to auscultation bilaterally Cardio Rate: regular rate Rhythm: regular rhythm GI Inspection: normal to inspection Palpation: soft and no hepatosplenomegaly Skin General: no rashes or lesions noted Neuro General: patient alert, patient awake and patient oriented x3 Extrem General: no calf tenderness Psych Appearance: grossly normal Assessment and Plan Assessment and Plan (1) Globus sensation: ?Status:?Acute (2) Esophageal dysphagia: ?Status:?Acute Plan For her Esophageal dysphagia with escalating symptoms.? A esophagogastroduodenoscopy with possible biopsy or dilatation is indicated.? Looking for potential for eosinophilic esophagitis or progressive reflux disease or obstructive phenomena like a Schatzki ring or active gastritis. She has had an opportunity ask and have questions answered.? We will schedule procedure at her discretion.? She is not on any anticoagulant. I appreciate the ongoing opportunity of assisting with her surgical care Copy: Dr. Sade Humphries M.D., F.A.C.S This patient was previously scheduled for this examination however she was in the room on the day of the examination what became known that the [id number] balloon dilators were not available. Her procedure was aborted on that day not started and she is rescheduled for today. Teodoro Humphries M.D., F.A.C.S.
--- NOTE | 2023-05-09 10:15 | OP.CCLET_ITS ---
05/09/2023 Sade Ocampo Re : Upper GI endoscopy procedure for Emeli Rojas Damaris This procedure was performed on Tuesday, May 09, 2023. My impressions and recommendations are as follows: Impressions : - Z-line regular, 39 cm from the incisors. - Reflux esophagitis. Biopsied. - Small hiatal hernia. - Multiple gastric polyps. Resected and retrieved. - Erythematous mucosa in the antrum. Biopsied. - Erythematous duodenopathy. Biopsied. Recommendations : - Discharge patient to home. - Resume previous diet. - Continue present medications. - Telephone my office for pathology results in 1 week. No stricture or Schatzki ring identified. We will await biopsy results and provide any additional recommendations to the patient. My findings are described in the full procedure note, which is enclosed. If I can be of further assistance, please feel free to contact me at Doctor phone number(s): Work: . Sincerely, Teodoro Humphries MD 05/09/2023 10:14:20 AM This report has been signed electronically.
--- NOTE | 2023-05-09 10:15 | OP.EGD_ITS ---
Patient Name: Emeli Stephenson Procedure Date: 05/09/2023 9:58 AM Date of : 1945 Age: 77 Procedure: Upper GI endoscopy Indications: Dysphagia Providers: Teodoro Humphries MD Referring MD: Sade Ocampo Medicines: See the Anesthesia note for documentation of the administered medications Complications: No immediate complications. Procedure: Pre-Anesthesia Assessment: - Prior to the procedure, a History and Physical was performed, and patient medications and allergies were reviewed. The patient's tolerance of previous anesthesia was also reviewed. The risks and benefits of the procedure and the sedation options and risks were discussed with the patient. All questions were answered, and informed consent was obtained. Prior Anticoagulants: The patient has taken no previous anticoagulant or antiplatelet agents. ASA Grade Assessment: II - A patient with mild systemic disease. After reviewing the risks and benefits, the patient was deemed in satisfactory condition to undergo the procedure. After obtaining informed consent, the endoscope was passed under direct vision. Throughout the procedure, the patient's blood pressure, pulse, and oxygen saturations were monitored continuously. The gastroscope was introduced through the mouth, and advanced to the second part of duodenum. The upper GI endoscopy was accomplished without difficulty. The patient tolerated the procedure well. Scope In: 10:00:18 AM Scope Out: 10:07:08 AM Total Procedure Duration Time 0 hours 6 minutes 50 seconds Findings: The Z-line was regular and was found 39 cm from the incisors. Esophagitis with no bleeding was found 39 cm from the incisors. Biopsies were taken with a cold forceps for histology. A small hiatal hernia was present. Multiple pedunculated and sessile polyps with no bleeding and no stigmata of recent bleeding were found in the gastric fundus, in the gastric body and on the greater curvature of the stomach. The polyp was removed with a cold biopsy forceps. Resection and retrieval were complete. Diffuse mildly erythematous mucosa without bleeding was found in the gastric antrum. Biopsies were taken with a cold forceps for histology. Diffuse mildly erythematous mucosa without active bleeding and with no stigmata of bleeding was found in the duodenal bulb. Biopsies were taken with a cold forceps for histology. Impression: - Z-line regular, 39 cm from the incisors. - Reflux esophagitis. Biopsied. - Small hiatal hernia. - Multiple gastric polyps. Resected and retrieved. - Erythematous mucosa in the antrum. Biopsied. - Erythematous duodenopathy. Biopsied. Recommendation: - Discharge patient to home. - Resume previous diet. - Continue present medications. - Telephone my office for pathology results in 1 week. No stricture or Schatzki ring identified. We will await biopsy results and provide any additional recommendations to the patient. Procedure Code(s): --- Professional --- 31475, Esophagogastroduodenoscopy, flexible, transoral; with biopsy, single or multiple Diagnosis Code(s): --- Professional --- K21.0, Gastro-esophageal reflux disease with esophagitis K44.9, Diaphragmatic hernia without obstruction or gangrene K31.7, Polyp of stomach and duodenum K31.89, Other diseases of stomach and duodenum R13.10, Dysphagia, unspecified CPT copyright 2017 [employer]. All rights reserved. The codes documented in this report are preliminary and upon polymer engineer review may be revised to meet current compliance requirements. Teodoro Humphries MD 05/09/2023 10:14:20 AM This report has been signed electronically. Number of Addenda: 0 Note Initiated On: 05/09/2023 9:58 AM
[2023-05-09 10:20] VITALS: BP 124/61; BP 148/62; PULSE 61; RESP 18; O2SAT 96
[2023-05-09 10:25] VITALS: BP 126/54; BP 148/62; PULSE 60; RESP 18; O2SAT 96
[2023-05-09 10:38] VITALS: BP 126/56; BP 148/62; PULSE 63; RESP 12; TEMP 35.7; O2SAT 96
[2023-05-09 10:44] VITALS: BP 126/54; BP 148/62; PULSE 64; RESP 12; TEMP 36.4; O2SAT 97
[2023-05-09] MEDS: Lactated Ringers 1,000 ML 15 ML IV (10:49)
[2023-05-09 11:16] VITALS: BP 148/62
== END 2023-05-09 11:23 | disposition home or self-care (01) ==
LOC: EN 07:23 → AC 07:23
PROVIDERS: PCP Internal Medicine; Referring Provider Internal Medicine; Visit Provider Surgery
PROC: 0DJ08ZZ Inspection of Upper Intestinal Tract, Via Natural or Artificial Opening Endoscopic (ICD-10-PCS; CPT 43235; principal; 2023-05-09 08:25)
DX: K31.7 Polyp of stomach and duodenum (principal); C67.9 Malignant neoplasm of bladder, unspecified; K29.50 Unspecified chronic gastritis without bleeding; K44.9 Diaphragmatic hernia without obstruction or gangrene; Z86.010 Personal history of colon polyps; K21.00 Gastro-esophageal reflux disease with esophagitis, without bleeding; Z79.899 Other long term (current) drug therapy
CPT/HCPCS: 43239; 88305; 88342; J7120; J2405

== ENCOUNTER → 2023-05-31 | Outpatient (CLI) | payer MEDICARE, OTHER, SELFPAY ==
--- NOTE | 2023-05-31 12:08 | CT_ITS ---
PROCEDURE: CT RIGHT KNEE WITHOUT CONTRAST REASON FOR EXAM: Female, 77 years old. Preoperative planning for the Mako[employer] Robotic knee surgery. Knee pain. TECHNIQUE: Transaxial CT of the hip, knee and ankle were obtained. Coronal and sagittal reconstruction images of the knee were provided. Individualized dose optimization techniques were used for this CT. COMPARISON: None. FINDINGS: Standard protocol for the preoperative planning for the MakoPlasty robotic knee surgery was performed. Osteopenia. Mild arthrosis of the right hip. Moderate tricompartmental arthrosis of the knee. Small knee effusion. Mild arthrosis of the tibiotalar and subtalar joints. CT/Extremity Lower without Contra IMPRESSION: Preoperative Mako[employer] Robotic knee surgical CT evaluation with findings as described above. Electronically Signed: Hossein Matos MD at 12:58 EDT ,
== END | disposition home or self-care (01) ==
LOC: CT 12:03
PROVIDERS: PCP Internal Medicine; Referring Provider Specialist; Visit Provider Specialist
DX: M21.161 Varus deformity, not elsewhere classified, right knee (principal)
CPT/HCPCS: 73700

== ENCOUNTER 2023-06-28 12:44 | Observation (INO) | payer MEDICARE, OTHER, SELFPAY ==
--- NOTE | 2023-05-31 12:06 | EKG12_ITS ---
Test Reason : PRE OP Blood Pressure : / mmHG Vent. Rate : 067 BPM Atrial Rate : 067 BPM P-R Int : 158 ms QRS Dur : 078 ms QT Int : 392 ms P-R-T Axes : 069 052 011 degrees QTc Int : 414 ms Normal sinus rhythm Nonspecific ST and T wave abnormality Abnormal ECG Confirmed by LILIANA TERRY, FRANCIS ([id number]), editor school photograph ALY GOMEZ ([id number]) on 06/01/2023 9:00:47 AM Referred By: BARRERA Confirmed By:JOS FORD MD
[2023-05-31 13:38] LABS: Absolute Lymphocyte Count 1.63 X10^3/uL (0.83-4.51); Basophil# 0.04 X10^3/uL; Basophil% 0.8 % (0-1); Eosinophil# 0.06 X10^3/uL; Eosinophils% 1.2 % (0-5); Hematocrit 41.7 % (37-47); Hemoglobin 14.9 g/dL (12.0-15.0); Lymphocyte # 1.63 X10^3/ul (0.83-4.51); Mean Corp Hgb Conc 35.7 g/dL (32-36); Mean Corpuscular Hgb 35.6 pg (27.0-32.0); Mean Corpuscular Volume 99.5 fL (81-99); Mean Platelet Vol. 10.3 fl (6.2-12.0); Monocyte# 0.38 X10^3/uL; Monocyte% 7.5 % (0-10); NRBC Flagged by Analyzer 0 % (0-5); Neutrophil # 2.98 X10^3/uL (2.7-7.7); Neutrophil % 58.3 % (47-70); Platelet Count 216 K/mm3 (150-450); RBC Distribution Width CV 12.3 % (11.6-14.6); RBC Distribution Width SD 44.8 fl (35.1-43.9); Red Blood Count 4.19 M/mm3 (4.2-5.4); White Blood Count 5.1 K/mm3 (4.4-11.0)
[2023-05-31 13:59] LABS: Albumin, Serum 3.7 g/dL (3.2-5.0); Anion Gap 5 (5-15); BUN 13 mg/dL (7-18); BUN/Creat Ratio 17.8 RATIO (10-20); Calcium,Total 9.3 mg/dL (8.5-10.1); Chloride 105 mmol/L (98-107); Creatinine, Serum 0.73 mg/dL (0.55-1.02); EST Glomerular Filtration Rate 82 mL/min (>60); Est Glom Filt Rate - Afr Amer 99 mL/min (>60); Glucose 90 mg/dL (74-106); Potassium 3.8 mmol/L (3.5-5.1); Sodium Level 140 mmol/L (136-145)
[2023-05-31 14:02] LABS: Magnesium 2.3 mg/dL (1.6-2.6)
--- NOTE | 2023-06-19 21:39 | PCM.HP.BLA ---
History and Physical History and Physical? Patient Name: Emeli Stephenson : 1945 From:? ROSALINDA JI PA-C? DATE OF PRE-OPERATIVE EXAM: 06/19/2023 DATE OF SURGERY:? 06/28/2023 SCHEDULED PROCEDURE:? Right total knee arthroplasty HISTORY OF PRESENT ILLNESS: Preoperative history and physical exam was performed on June 19, 2023.? This is a 77-year-old female who is been having ongoing pain for several years with her right knee.? She was initially planned for surgery in October 2021 however she canceled that surgery as concerns for complications following surgery due to family history.? She has also had previous cervical spine surgery as well as treatment of bladder cancer.? She has continued to have pain in the right knee that is been aching and sore.? Pain is increased with going up and down stairs, sitting, walking.? Pain is located over the medial and anterior knee.? She gets clicking sensation.? She has difficulty with activities of daily living including housework and shopping.? Patient has attempted previous conservative measures including rest, ice, elevation with temporary relief.? She has had previous corticosteroid injection I gave 3 months of relief.? She has tried topical medication.? She has had previous right knee arthroscopy in 2016 for meniscectomy.? She uses an occasional cane.? She attempted previous bracing with minimal relief.? After failing conservative measures and discussing all treatment options with Dr. Tony Savage, the patient does wish to proceed with a right total knee arthroplasty.? We have obtained primary closure clearance from Dr. Ocampo.? Patient has medical history pertinent for hypertension, gastroesophageal reflux disease and previous bladder cancer.? Patient denies past history of DVT or pulmonary embolism. Patient reports this morning she woke up with swelling and redness to her left third toe.? She cannot recall trauma or injury.? Has had no previous problems in the past.? X-rays reveal osteoarthritis in the DIP joint of the third toe.? She was placed on doxycycline and will follow-up in one week for reevaluation of the toe.? She is aware that if there is any worsening of her symptoms or concerns surgery may be delayed. REVIEW OF SYSTEMS: Review Of Systems: Constitutional: Denies anorexia, sometimes anxiety, change in appetite, fever and weight change,hard of hearing, and vision problems. Cardiovasular: Denies chest pain, heart murmur, irregular heartbeat and peripheral vascular disease. Respiratory: Denies asthma, cough, pneumonia, sleep apnea, shortness of breath, tuberculosis and wheezing. Gastrointestinal: Denies constipation, diarrhea, takes prevacid for heartburn, nausea, bloody stools and vomiting, and difficulty swallowing. Genitourinary: Denies incontinence. Musculoskeletal: Reports gait disturbance, pain and weakness, but denies trouble walking? Skin: Denies Raynaud's, history of shingles and tattoo, reports thin skin Neurological: Denies ambulatory dysfunction, dizziness, numbness/tingling and tremor. Psychiatric: Reports anxiety, but denies depression, insomnia, mental illness and stress. Hematologic/Lymphatic: Denies anemia, bleeding/bruising tendency and past transfusion. Reviewed and updated. PAST MEDICAL HISTORY: Advance Care Plan: Resuscitation, POA Effective Date: 07/07/2021 Resuscitation, LIVING WILL Effective Date: 07/07/2021 Past Medical History: Medical Problems: Arthritis, High Blood Pressure, Acid Reflux Cancer - BLADDER-CANCER FREE radiation therapy - (02/20/2023) LAST TREATMENT? Accidents: Other - Fell in 2000 - injurying right shoulder and right arm Surgical Hx: Hysterectomy - 1979 Tonsillectomy - 1955 Other - Foot / heel surgery spurs - 1987 RT Knee Arthroscopy - (2015) MENISECTOMY Cervical Disk Surgery - (2021) LUDIVINA? Cancerous Tumor Removal In Bladder - (2021) MARISABEL HAY? Cataracts - (2019) RT and LT Anesthesia Complications: None Assistive Devices: Dentures - Partial Reviewed and updated. 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 Personal Habits:? Cigarette Use: Never.Smokeless Tobacco: Never Used Smokeless Tobacco.E-Cigarette Use: Never used.Alcohol: Denies use.Drug Use: Denies Use.Enjoy Exercising: Exercises 1-3 X/Week. Reviewed, no changes. VITALS: Ht: 61 Wt: 169lb Wt k.658 BMI: 31.9 BP: 152/88 Pulse: 65 Resp: 8 T: 96.8 T: 36.0C Pain Level: 4 O2SatR: 96 ALLERGIES: Cortisone - Flu Symptoms Anti-Inflammatories Tape Augmentin Bactrim Levaquin Zithromax Azithromycin? MEDICATIONS: Doxycycline Monohydrate 100 mg 1 by mouth twice a day, Losartan Potassium/Hydrochlorothiazide 100-25 mg 1po qday, Pantoprazole Sodium 40 mg 1po qday, Metoprolol Tartrate 25 mg 1po qday, Ezetimibe 10 mg 1 by mouth every day, Potassium & Magnesium 500MG? 1po qday, Gabapentin 300 mg take 1 capsule by mouth three times a day if needed, Vitamin D3 1.25 MG (91332 Ut) 1 PO qdaily, [facility] Vitamin B12 1000 mcg 1 PO qdaily, Aspirin 81 81 mg 1 every other day, Aspartate? 250 MG once daily PRE-OP EXAM:? General appearance:NORMAL? ? ? Other: Eyes: Conjunctivae and lids: NORMAL? Pupils: ERR Ears, Nose, Mouth, and Throat: NORMAL? Other: Inspection of lips, teeth and gums: NORMAL? ?Other: Neck: Examination of neck: no masses noted. Respiratory: Assessment of respiratory effort: NORMAL? ?Other: ?Auscultation of lungs: clear to auscultation no wheezes, rhonchi or rales. Cardiovascular:? Auscultation of heart: regular rate and rhythm, no murmurs, gallops or rubs. PHYSICAL EXAMINATION: Patient does walk with an antalgic gait.? Right knee is without erythema or signs of infection.? She has significant tenderness over the medial joint line.? No significant tenderness on the lateral joint line.? She has varus alignment which is correctable on exam.? Moderate effusion.? Range of motion: Right knee lacks 5 full extension to 100 flexion.? Stable to varus/valgus stress test and anterior/posterior drawer exam with firm endpoint.? Sensation intact to light touch. IMAGING STUDIES: Previous x-rays of the right knee reveal varus alignment with medial joint space narrowing, subchondral sclerosis, osteophyte formation consistent with severe stage IV [id number] erosive osteoarthritis.? On the left knee and also reveals varus alignment with severe stage IV [id number] osteoarthritis. IMPRESSION: 1.? Severe right knee osteoarthritis with varus alignment 2.? Severe left knee osteoarthritis with varus alignment 3.? Hypertension 4.? Previous bladder cancer in remission 5.? Left third toe osteoarthritis and erythema PLAN: Dr. Tony Savage did discuss and review with the patient all treatment options including surgical versus nonsurgical options.? Patient does wish to proceed with the above-stated procedure.? Potential risks, benefits, and complications of the procedure were discussed in detail including but not limited to , infection, nerve and blood vessel damage, persistent pain, numbness, tingling, paresthesias, blood clot, pulmonary embolism, and requirement for possible further surgery.? The patient expressed full understanding and has no further questions for the doctor.? Patient does agree to proceed with the above-stated procedure and has signed the surgery consent form. POST-OP MEDICATION PLAN: Pain Medications: Discussed postoperative medications in detail with the patient.? Patient is very hesitant of taking any postoperative narcotics due to family members with complications.? She is wanting to only use tramadol to start for pain control as well as Tylenol.? She is aware that this may not cover her pain levels and may need to adjust.? Patient will also use doxycycline postoperatively for 2 weeks as preoperative testing she was positive for staph.??Aware of patient's tape allergy and we will proceed forward with Mepilex.? If there are any complications postoperatively will adjust dressing as needed. DVT Prophylaxis:? Aspirin 81 mg twice daily for 4 weeks postoperatively.? Denies past history of DVT or pulmonary embolism This dictation was created using voice recognition software. Phonetic and/or grammatical errors may exist. ___? I have re-examined the patient.? There are no clinical changes since date of exam. ___? See progress notes for changes. ___? Dictated on admission Date: ? ? ?Time: Signature:
[2023-06-28] VITALS (15 sets, daily range): BP systolic 132–179; BP diastolic 56–74; PULSE 66–91; RESP 16–18; TEMP 35.9–36.6; O2SAT 90–100; BMI 32.8; BMI 30.9
--- NOTE | 2023-06-28 | KNEE_PTH ---
PATIENT: SACHIN LYNN LOC: [facility] U#:[id number] AGE/SX: 77/F ROOM: NM311 RE06/28/[address]: Dr. Tony Savage MD : 1945 BED: 1 DIS: 06/29/2023 SPEC #: [id number] RECD: 06/28/23 15:19 STATUS: RONALD MARIE #: [id number] BRISEIDA: 06/28/23 00:[address]: Tony Savage DEPT: SURGICAL PATHOLOGY RECD BY: Edilson Edwards ENTERED: 06/29/23 09:32 SP TYPE: TOTAL KNEE OTHR DR: MD Dr. Lauren Frias MD Tissues: Knee, NOS Procedures: Decalcification bone/plaque Surgery Specimen Level IV HEADER OPERATION: ERAS, total knee replacement robotic arm assist PRE-OP DIAGNOSIS: Severe right knee osteoarthritis TISSUE SUBMITTED: Bone and soft tissue right knee MICROSCOPIC DIAGNOSIS Bone and soft tissue, right knee, total knee replacement: Pieces of bone with degenerative osteoarthritic changes. Fibroadipose tissue, fibroconnective tissue and reactive synovial tissue. DAVIDSON:mendy 07/04/2023 MICROSCOPIC DESCRIPTION Slides are reviewed. GROSS DESCRIPTION Received is one container designated bone and soft tissue right knee. The specimen consists of multiple fragments of solo-yellow bone measuring in aggregate 12.0 x 9.0 x 3.0 cm. Also in the specimen container are multiple fragments of yellow-white soft tissue measuring in aggregate 7.0 x 5.0 x 1.5 cm. A number of bony fragments contain articular surfaces consistent with tibial plateau and femoral condyle and displaying prominent osteophyte formation, eburnation and bone erosion. Financial Representative sections are submitted in two cassettes as follows: 1 - soft tissue, 2 - bone after decalcification. / Haim 06/29/2023 TC:5 CPT: 24252, 09020
--- NOTE | 2023-06-28 06:58 | OP.PCM_ITS ---
Report of Operation Date of Procedure: 06/28/23 Pre-Operative Diagnosis: Right knee primary osteoarthritis Post-Operative Diagnosis: Right knee primary osteoarthritis Surgery/Procedure Performed:: Right minimally invasive robotic total knee replacement Description of Surgical Findings:: Stable knee with good patella tracking Surgeon: Tony Savage styrene dehydration reactor operator: Gulshan Charles Type of Anesthesia: Spinal General Anesthesia Anesthesiologist: Conner Uriarte Special Medications: 2 g Ancef, 1 g TXA at incision, 1 g TXA closure, 10 mg Decadron, joint cocktail (5 mg Duramorph, 30 mL of 0.5% Ropivicaine, 1000 units of epinephrine, 30 mg of Toradol) Specimen's removed: Bony cuts Estimated Blood Loss (mL): 50 Fluids Replaced: 1000 ml Description of Procedure: Implants used: 1. Mitchells size 3 triathlon cruciate retaining distal femoral press-fit component 2. Juan Manuel size 4 press-fit tritanium tibial baseplate 3. Mitchells X3 9 mm CS polyethylene 4. Juan Manuel X3 29 mm asymmetric patella Brief history operative indications: 77-year-old F with history of right knee osteoarthritis with radiographic findings with loss of joint space, osteophyte formation and subchondral sclerosis. Failed conservative measures as mentioned in the H&P. Discussion of total knee arthroplasty as well as risk and benefits were discussed the patient including but not limited to blood loss, DVTs, PEs, neurovascular damage, general risk of anesthesia including loss of life, and stiffness or instability were discussed with patient. Patient demonstrated understanding and was able to sign informed consent. Procedure: On the date of procedure patient's right lower extremity was marked in the preoperative area. The patient was then taken back to the operating room where the patient was placed on the table in the supine position. All bony prominences were identified a well-padded. Anesthesia assumed control of the C-spine and airway and remained controlled throughout the remainder of the procedure. A tourniquet was placed on the right upper thigh and the leg was prepped in a sterile fashion. The surgeon then scrubbed at this time .Upon reentering the room right lower extremity was draped in a standard orthopedic fashion. A timeout was then called and everyone agreed upon the side, the site, the procedure to be performed, patient's identity and antibiotics given. Esmarch bandage was used to exsanguinate the extremity and the tourniquet was placed up to 250 mmHg with the knee in flexion. A midline skin incision was made and sharp dissection was taken down through skin subcutaneous tissue and fat. The standard medial parapatellar incision was made and the patella was subluxed laterally. An Appropriate deep MCL release was done and the fat pad was resected. Our attention was then directed to the patella. The patella was everted and a flat resection was made. The knee was then flexed up in 2 femoral pins were placed inside the incision and 2 tibial pins were placed outside the incision in the medial tibia bicortically. Once this was completed the 2 checkpoints in the femur and tibia were placed. Knee was then flexed up and the bony landmarks were registered. Once this was completed knee was taken through range of motion and manually stressed allowing us to a plan for an appropriate tibial cut. The robotic arm was brought into the field sterilely and checkpoint and saw were registered. Based on the patient's deformity the tibial cut was made in 1 degree of varus. At this time the tensioner was then placed in the joint and ligament tension was checked at 90 degrees and full extension. Based on the patient's ligamentous tension appropriate adjustments were made to the operative plan and ligament releases were done. Once we were happy with our operative plan with balanced flexion and extension gaps our attention was directed to the femur. The robot was brought into the field sterilely and registered. Posterior condylar cuts, anterior chamfer cuts and anterior cuts were appropriately made for a size 3 femur. When these were completed the saws were switched out in the distal femoral and posterior chamfer cuts were made. Protecting the soft tissue throughout this time. A size 4 tibial base plate was selected. the knee was flexed to 90 degrees and the soft tissues and posterior osteophytes were removed from the joint. 40 cc of the periarticular injection was injected into the posterior medial corner of the joint. The appropriate trials were then placed on the femur and tibia. A trial polyethylene was trialed to ensure proper balancing and stability of the knee. The appropriate tibial internal rotation was then marked with a bovie. Our attention was then directed to the patella. The lug holes were drilled and the patella trial was placed. Patellar tracking was checked and deemed appropriate. Once we were happy lug holes were drilled for the femur and trial components were removed. the tibia was subluxed and pinned into place and the keel was punched and drilled appropriately. Final components were verified and opened, and cement was mixed in a vacuum. Bitcast Simplex cement was used. The wound was copiously irrigated with normal saline. When the cement was ready the components were impacted into place starting with the tibia, femur and finally cementing the patella. The trial poly component was placed and the knee was placed in full extension. All excess cement was removed in the process. Once the cement had cured the tracking, alignment and balance were verified and a size 9 mm CS polyethylene component was placed. Once the final components were placed a 3-minute dilute Betadine lavage was performed followed by an Irrisept lavage was performed and the wound was copiously irrigated with normal saline solution and the periarticular injection was given. The wound was closed in a layer pennington fashion using #1 vicryl interrupted sutures for the arthrotomy, 2-0 interrupted Vicryl suture for the subcuticular layer and elicia for final skin closure. A sterile compressive dressing was then placed. The patient was then awakened from anesthesia, transferred to the rchatham and transferred to the PACU for recovery. Post op plan DVT ppx: ASA 81mg BID, thigh high compression stockings Follow up: in office in 2 weeks for wound check PT: to start POD #0 at hospital, outpatient PT should be arranged. Patient placed on doxycycline for 2 weeks postoperatively secondary to positive staph screening My physician research assistant professor was a vital part of this case. He was important in appropriate retraction during the case, and protection of soft tissues during bony cuts. His intimate knowledge of the case and my steps aided in safe and expedient completion of the procedure as well as appropriate position of the leg during the case. He was also vital in assisting with closure under my direct supervision. Due to the complexity of this case robotic arm was used to assist in the surgery to improve accuracy and clinical outcomes. Complications No intraoperative complications Admit VTE Documentation VTE Present on Admission: No VTE Mechan Device Prophylaxis: SCD's and Thigh High CONCHA Hose VTE Pharm Prophylaxis ordered?: Yes
[2023-06-28] MEDS: Lactated Ringers 1,000 ML 999 ML IV ×2 (07:03→12:30)
[2023-06-28] MEDS: Gabapentin 600 MG Tablet PO (07:05)
[2023-06-28] MEDS: Acetaminophen 500 MG Tablet 1000 MG PO ×3 (07:05→22:13)
[2023-06-28] MEDS: Magnesium 1 GM over 15 mins IV (07:07)
[2023-06-28 07:39] LABS: Bedside Glucose 112 mg/dL (74-106)
[2023-06-28] MEDS: Lactated Ringers 1,000 ML 75 ML IV (09:37)
[2023-06-28] MEDS: Cefazolin 2 GM in 0.9% Normal Saline 100 ML IV (10:57)
[2023-06-28] MEDS: TXA 1000mg in NS100 100ml (IVPB at Incision) 660 MG IV (11:05)
[2023-06-28] MEDS: dexAMETHasone 10 MG/ML Vial IV (11:09)
[2023-06-28] MEDS: TXA 1000mg in NS100 100ml (IVPB at Closure) 660 MG IV (11:38)
[2023-06-28] MEDS: JPS (Morphine 10mg/ml) OPERA.SITE (11:45)
--- NOTE | 2023-06-28 12:50 | RAD_ITS ---
STUDY: X-RAY - RIGHT KNEE REASON FOR EXAM: Female, 77 years old. post op -- AP and Lateral xray of operative knee in PACU TECHNIQUE: 2 view(s) of the knee. COMPARISON: CT of the right lower extremity dated May 31, 2023 FINDINGS: Newly placed tricompartmental hardware is present demonstrating good bony contact and alignment. The tibial stem is non-cemented. Tract gotti are seen in the undersurface of the patella due to placement of a radiolucent prosthetic component. There are expected postoperative changes in the soft tissues and joint including gas, fluid, and swelling. No occult fractures seen. RAD/Knee 1 or 2 Views IMPRESSION: 1. Status post right knee arthroplasty Electronically Signed: Frankie Lucia MD at 14:39 EDT ,
[2023-06-28] MEDS: Lactated Ringers 1,000 ML 125 ML IV (13:46)
--- NOTE | 2023-06-28 15:39 | PCM.PN.HOSP ---
Subjective Subjective [id number] female presents to the hospital with a history of right knee osteoarthritis she is status post a right total knee replacement. She is doing well postoperatively, pain is controlled. She is little bit drowsy and still on 2 L nasal cannula from her surgery Objective Data Objective Data Vital Signs: Vital Signs Temp Pulse Resp BP Pulse Ox O2 Del Method O2 Flow Rate 97.1 F L 72 16 145/60 H 94 Nasal Cannula 2 06/28/23 14:46 06/28/23 14:46 06/28/23 14:46 06/28/23 14:46 06/28/23 14:46 06/28/23 15:03 06/28/23 15:03 Oxygen Flow Rate (L/min) 2 Oxygen Delivery Method Nasal Cannula Weight: 169 lb Body Mass Index (BMI) 30.9 Intake & Output: Intake and Output for Last 24 Hours 06/27/23 06/28/23 06/29/23 03:59 03:59 03:59 Intake Total 3707 / 3707 Balance 3707 / 3707 Lab / Micro Data 05/31/23 12:41 05/31/23 12:41 Labs: Laboratory Results - last 24 hr 06/28/23 07:10: POC Glucose 112 H Micro: Microbiology 05/31/23 12:41 Swab (Method) Nasal Screen MRSA/MSSA - Final Radiography Diagnostic Testing: Radiology Impression Knee X-Ray 06/28/23 12:50 IMPRESSION: 1. Status post right knee arthroplasty Electronically Signed: Frankie Lucia MD at 14:39 EDT Reading Location ID and State: [address] [place] [address] , Service support , Physical Exam Narrative General: Alert, Oriented x3, Cooperative, No apparent distress HEENT: Atraumatic, PERRLA, EOMI, Normocephalic Oral: Moist Mucosa Neck: Supple, No JVD Lungs: Diminished, Normal air movement, No rhonchi, No wheeze, No rales Cardiovascular: Regular rate, Regular Rhythm, Normal S1, Normal S2, No murmurs Abdomen: Soft, Non Tender, Non-Distended, No Hepato-splenomegaly Extremities: No edema, Capillary Refill Less than 3 Seconds Skin: Dressing CDI Musculoskeletal: No Tenderness to Palpation of Joints or Extremities Neurological: Cranial nerves II-XII grossly intact, Motor Exam 5/5 strength throughout, Sensory exam intact to light touch and pain Psych/Mental Status: Normal Affect, Appropriate Assessment & Plan Assessment/Plan (1) Status post total right knee replacement: PLAN: Plan 1. Status post right total knee replacement for osteoarthritis ? PT/OT per primary ? Pain management per primary ? Discharge planning per primary ? DVT prophylaxis per primary 2. HTN/HLD ? Blood pressures are currently stable we will continue to monitor and make adjustments ? Resume home blood pressure medications ? We will check a BMP in the morning given that she is on ARB and diuretic 3. GERD ? Stable ? Continue with PPI Charges/Coding Visit Charges Office Visits / Consults: 69709 OV L3 New
[2023-06-28] MEDS: Aspirin 81 MG TAB.CHEW PO (16:38)
[2023-06-28] MEDS: Ensure Surgery 237 ML LIQUID PO (16:41)
[2023-06-28] MEDS: Cefazolin 1 GM/50 ML BAG IV (18:34)
[2023-06-28] MEDS: oxyCODONE 5 MG Tablet PO (22:09)
[2023-06-28] MEDS: Gabapentin 300 MG Capsule PO (22:14)
[2023-06-28] MEDS: Metoprolol(XL)Succ 25 MG Tablet PO (22:14)
[2023-06-29 02:53] VITALS: BP 121/54; PULSE 72; RESP 16; TEMP 37; O2SAT 97
[2023-06-29] MEDS: Cefazolin 1 GM/50 ML BAG IV (03:42)
[2023-06-29] MEDS: oxyCODONE 5 MG Tablet PO ×3 (03:43→14:25)
[2023-06-29] MEDS: Gabapentin 300 MG Capsule PO ×2 (06:12→14:25)
[2023-06-29] MEDS: Acetaminophen 500 MG Tablet 1000 MG PO ×2 (06:12→14:27)
[2023-06-29 06:15] LABS: Hematocrit 36.4 % (37-47); Hemoglobin 12.3 g/dL (12.0-15.0); Mean Corp Hgb Conc 33.8 g/dL (32-36); Mean Corpuscular Hgb 34.3 pg (27.0-32.0); Mean Corpuscular Volume 101.4 fL (81-99); Mean Platelet Vol. 10.2 fl (6.2-12.0); Platelet Count 190 K/mm3 (150-450); RBC Distribution Width CV 12.4 % (11.6-14.6); RBC Distribution Width SD 46.5 fl (35.1-43.9); Red Blood Count 3.59 M/mm3 (4.2-5.4); White Blood Count 13.1 K/mm3 (4.4-11.0)
[2023-06-29 06:49] LABS: Anion Gap 5 (5-15); BUN 16 mg/dL (7-18); BUN/Creat Ratio 21.1 RATIO (10-20); Calcium,Total 8.1 mg/dL (8.5-10.1); Chloride 108 mmol/L (98-107); Creatinine, Serum 0.76 mg/dL (0.55-1.02); EST Glomerular Filtration Rate 79 mL/min (>60); Est Glom Filt Rate - Afr Amer 95 mL/min (>60); Estimated Creatinine Clearance 37.26 ml/min; Glucose 131 mg/dL (74-106); Sodium Level 141 mmol/L (136-145)
[2023-06-29 08:44] VITALS: BP 137/61; PULSE 67; RESP 16; TEMP 36.6; O2SAT 97
[2023-06-29] MEDS: Cholecalciferol (VIT D3) 25 MCG TABLET (1,000 UNITS) 100 MCG PO (08:49)
[2023-06-29] MEDS: Pantoprazole Sodium 40 MG Tablet PO (08:49)
[2023-06-29] MEDS: Magnesium Chloride 64 MG Delay Rel.Tablet 128 MG PO (08:50)
[2023-06-29] MEDS: Losartan Potassium 100 MG Tablet PO (08:50)
[2023-06-29] MEDS: Aspirin 81 MG TAB.CHEW PO (08:50)
[2023-06-29] MEDS: Ezetimibe 10 MG Tablet PO (08:50)
[2023-06-29] MEDS: hydroCHLOROthiazide 25 MG Tablet PO (08:50)
[2023-06-29] MEDS: Ensure Surgery 237 ML LIQUID PO ×2 (08:54→15:14)
--- NOTE | 2023-06-29 10:47 | PCM.PN.HOSP ---
Reason for Visit Reason for Visit: Diagnoses Encounter for other preprocedural examination (06/28/23) Presence of right artificial knee joint (06/28/23) Subjective Subjective Feels a little sore and slow to get up but overall feeling fair with no other complaints Objective Data Objective Data Vital Signs: Vital Signs Temp Pulse Resp BP Pulse Ox O2 Del Method O2 Flow Rate 97.9 F 67 16 137/61 H 97 Room Air 1 06/29/23 08:44 06/29/23 08:44 06/29/23 08:44 06/29/23 08:44 06/29/23 08:44 06/29/23 08:44 06/29/23 02:53 Oxygen Flow Rate (L/min) 1 Oxygen Delivery Method Room Air Weight: 76.657 kg Body Mass Index (BMI) 30.9 Intake & Output: Intake and Output for Last 24 Hours 06/27/23 06/28/23 06/29/23 23:59 23:59 23:59 Intake Total 3957 / 3957 1450 / 1450 Output Total 300 / 300 Balance 3957 / 3957 1150 / 1150 Lab / Micro Data 06/29/23 05:55 06/29/23 05:55 Labs: Laboratory Results - last 24 hr 06/29/23 05:55: WBC 13.1 H, RBC 3.59 L, Hgb 12.3, Hct 36.4 L, MCV 101.4 H, MCH 34.3 H, MCHC 33.8, RDW Std Deviation 46.5 H, RDW Coeff of Lacho 12.4, Plt Count 190, MPV 10.2, Sodium 141, Potassium 4.0, Chloride 108 H, Carbon Dioxide 28.0, Anion Gap 5, BUN 16, Creatinine 0.76, Estim Creat Clear Calc 37.26, Est GFR (MDRD) Af Amer 95, Est GFR (MDRD) Non-Af 79, BUN/Creatinine Ratio 21.1 H, Glucose 131 H, Calcium 8.1 L Micro: Microbiology 05/31/23 12:41 Swab (Method) Nasal Screen MRSA/MSSA - Final Radiography Diagnostic Testing: Radiology Impression Knee X-Ray 06/28/23 12:50 IMPRESSION: 1. Status post right knee arthroplasty Electronically Signed: Frankie Lucia MD at 14:39 EDT , Physical Exam Narrative General: Alert, oriented, no apparent distress HEENT: Atraumatic, normocephalic Eyes: Anicteric, normal conjunctiva, extraocular movements grossly intact Neck: Supple Respiratory: Clear to auscultation bilaterally, normal respiratory effort Cardiovascular: Regular rate and rhythm GI: Soft, nontender, nondistended Extremities: No edema Musculoskeletal: Moving all extremities Neuro: No overt focal neurological deficits Skin: No rashes appreciated Psych: Cooperative Assessment & Plan Assessment/Plan (1) Status post total right knee replacement: PLAN: Plan 1. Status post right total knee replacement for osteoarthritis ? PT/OT per primary ? Pain management per primary ? Discharge planning per primary ? DVT prophylaxis per primary -06/29: Patient up with therapy this morning, to get up with them again this afternoon, discussed with Ortho possible home today versus tomorrow. 2. HTN/HLD ? Blood pressures are currently stable we will continue to monitor and make adjustments ? Resume home blood pressure medications ? We will check a BMP in the morning given that she is on ARB and diuretic date BMP unremarkable, continue present management 3. GERD ? Stable ? Continue with PPI Charges/Coding Visit Charges Inpatient E&M: 12809 Subs Hosp L1
--- NOTE | 2023-06-29 10:55 | CASEMGMT ---
RORY MORATAYA Assessment: Face to Face with pt for initial transition planning/care coordination assessment. RN RAFIA introduced self and role at [facility], pt voices understanding and consents to assessment. Pt is A/O x4 and answers all questions appropriately at this time. Pt sitting up in chair with nurse at bedside. Care providers, pharmacy, and demographics verified/updated. Admitting Dx: Rt total knee with ana PCP:Damaris Specialists:wes [place]; wes Ingram; elvia Savage Preferred Pharmacy: [facility] Retail Insurance: MCR, [employer] Supplement Prescription Benefit: yes LNOK: Hossein Stephenson, Living Arrangements: Pt lives with in a single story home with 1 step to enter through the garage. Pt reports she was I in ADL's and denies concerns at home. Transportation: Pt drives self and denies concerns with transportation. Pt will transport her to medical appts until she is able to drive again. DME/HHC/SNF: Pt has canes, toilet hand rails, w/c, FWW x2, walk in shower and shower chair. Pt denies hx of HHC or SNF stays. Pt states no concerns with going home at time of dc. Pt has outpt therapy set up for Monday at [facility]. Pt states no further concerns/needs. CM to follow. Advised pt to ask CM if any further question/concerns/needs arise, voices understanding. Pt Goal: Home with outpt therapy already set up Plan: Home with outpt therapy already set up.
[2023-06-29 11:03] VITALS: O2SAT 95
--- NOTE | 2023-06-29 11:13 | PN.ORTHO_ITS ---
Subjective Subjective The patient was sitting in bedside chair upon examination. Patient denies any chest pain, shortness of breath, dizziness, lightheadedness, nausea or vomiting, or calf pain. Pain is controlled on medications. No adverse overnight events. Patient did require the oxycodone today. She tolerated the medication well with no significant side effects. She was concerned about narcotics. Patient did participate in physical therapy this morning and therapy states she was slow with her movements. They would like to reevaluate her this afternoon for discharge planning. Patient does have a at home that can help. Objective Data Objective Data Vital Signs: Vital Signs Temp Pulse Resp BP Pulse Ox O2 Del Method O2 Flow Rate 97.9 F 67 16 137/61 H 95 Room Air 1 06/29/23 08:44 06/29/23 08:44 06/29/23 08:44 06/29/23 08:44 06/29/23 11:03 06/29/23 11:03 06/29/23 02:53 Oxygen Flow Rate (L/min) 1 Oxygen Delivery Method Room Air Weight: 76.657 kg Body Mass Index (BMI) 30.9 Intake & Output: Intake and Output for Last 24 Hours 06/27/23 06/28/23 06/29/23 23:59 23:59 23:59 Intake Total 3957 / 3957 1450 / 1450 Output Total 300 / 300 Balance 3957 / 3957 1150 / 1150 Lab / Micro Data 06/29/23 05:55 06/29/23 05:55 Labs: Laboratory Results - last 24 hr 06/29/23 05:55: WBC 13.1 H, RBC 3.59 L, Hgb 12.3, Hct 36.4 L, MCV 101.4 H, MCH 34.3 H, MCHC 33.8, RDW Std Deviation 46.5 H, RDW Coeff of Lacho 12.4, Plt Count 190, MPV 10.2, Sodium 141, Potassium 4.0, Chloride 108 H, Carbon Dioxide 28.0, Anion Gap 5, BUN 16, Creatinine 0.76, Estim Creat Clear Calc 37.26, Est GFR (MDRD) Af Amer 95, Est GFR (MDRD) Non-Af 79, BUN/Creatinine Ratio 21.1 H, Glucose 131 H, Calcium 8.1 L Micro: Microbiology 05/31/23 12:41 Swab (Method) Nasal Screen MRSA/MSSA - Final Radiography Diagnostic Testing: Radiology Impression Knee X-Ray 06/28/23 12:50 IMPRESSION: 1. Status post right knee arthroplasty Electronically Signed: Frankie Lucia MD at 14:39 EDT Reading Location ID and State: [facility] / ID , Service support , Physical Exam Narrative Vital signs stable and afebrile. SCDs and CONCHA hose are in place bilaterally Patient is able to plantarflex and dorsiflex actively. Sensation is intact to light touch to saphenous, sural, superficial and deep peroneal, and tibial distribution. Due to patient's skin sensitivity we were not able to use Mepilex dressings. Xochilt zhang is currently using ABDs. The Davy wrap was removed by nursing and ABD with tape was placed. I did discuss with the nurse today that we are not can to use any tape on the skin and only use ABDs and to place 1 or 2 Davy wrap's. Negative Homans bilaterally, negative signs and symptoms of DVT. Const alert, oriented x3 and no apparent distress Assessment & Plan Assessment/Plan (1) Status post total right knee replacement: PLAN: 1. S/P right total knee arthroplasty POD #1 2. Continue Pain Medications: Tylenol primarily with oxycodone as needed. Patient tolerated the oxycodone today in the hospital. 3. DVT Prophylaxis: Take 81 mg aspirin twice daily for 4 weeks postoperatively for DVT prophylaxis. Patient denies past history of DVT or pulmonary embolism 4. PT/OT: Weightbearing as tolerated with walker. Physical therapy would like to reassess patient this afternoon for appropriate discharge planning. 5. Lab work has been reviewed and currently stable. Patient did have reactive leukocytosis currently 13.1, afebrile. She did receive Decadron intraoperatively 6. Continue postoperative medical management per medicine 7. Currently on doxycycline for 2 weeks postoperatively due to staph screening. I discussed with the patient potential side effects of doxycycline including sensitivity to the sunlight and increased risk of skin burn. Recommend patient take appropriate precautions. Also recommend patient to take probiotic while on the antibiotic. Patient voiced understanding agreement. 8. Encouraged Incentive Spirometry 9. Disposition: Plan will be for possible discharge home this afternoon as long as patient tolerates physical therapy. I am waiting on recommendations from therapy for appropriate discharge planning. Discharge also be based on patient having well-controlled pain levels and medically stable. I am going to have patient ready for possible discharge and she would like her medications E scribed to [facility]. She will follow-up per postoperative instructions. She has outpatient physical therapy established. Upon discharge she will contact her office if she has any concerns or questions. I did discuss with her with regards to the dressing she is not to get this wet for 5 days postoperatively. She has sensitivity to tape and had reaction after removing the Ioban. We chose to proceed with ABDs and Davy wrap only to protect the skin. She voiced understanding agreement that she is not to get this wet until postoperative day #5. Nursing also placed her in appropriate dressing and Davy wrap. I have reviewed the [place] Automated Rx Reporting System (OARRS) report for this patient for refill pattern and other prescriber involvement as part of the appropriate surveillance for the provision of acute and chronic controlled medications. The report was requested and reviewed on the date of this entry and was considered in the prescribing process. This dictation was created using voice recognition software. Phonetic and/or grammatical errors may exist.
--- NOTE | 2023-06-29 11:19 | DCINST_ITS ---
Discharge Instructions Diet Discharge Diet: No restrictions Activity Discharge Activity: May Not Drive (No driving for 6 weeks postoperatively. Must also be off all narcotics and able to walk 100 feet without the use of cane or walker.) May shower in (days): 4 (Please turn dressing away from water. Okay to get wet as long as dressing is intact to skin.) Ice area for (Minutes): 20 (Every 1-2 hours while awake[address] place barrier between the skin and ice pack.) Weight Bearing Status: Weight bearing as tolerated Keep extremity elevated above heart level: Operative Extremity Dressing / Incision Call your doctor if your incision/area has: Continuous Slow Oozing, Sudden Increased Bleeding, Increased Pain/ Swelling, Increased Redness and Foul Smelling Discharge Call your doctor if you observe: Fever of 101 or Higher, Coldness, Increased Pain, Numbness or Tingling, Change in Color, Shortness of breath, Chest pain, Calf discomfort and Uncontrolled pain Remove Dressing in: 4 days (Okay to remove on July 03, 2023) Additional Dressing/Incision Instructions:: Follow [facility] Post-op Instructions. Continue with ABD and Davy wrap for 5 days postoperatively. You are not allowed to get the dressing wet until postoperative day #5. Once dressing has been removed it is okay to shower. Do not use any ointments, Neosporin, salves, alcohol pads over the incision for 6 weeks postoperatively. Do not submerge underwater for 6 weeks postoperatively. Continue with CONCHA hose/elastic stockings for 2 weeks postoperatively. May remove at nighttime but needs to be placed back on the leg during the day. Do NOT use alcohol with narcotic pain medication. Do NOT make important decisions while taking narcotic medication. If you have problems with taking your medication (rash, itching, nausea, etc.) call the office at once. Follow Up Care Test Results: Test results from this visit will be discussed in further detail at your follow- up appointment, if applicable. Discharge Plan Admission Admit Date/Time: 06/28/23 12:44 Attending Provider: Tony Savage Primary Care Provider: Sade Ocampo Consulting Providers: Lauren Olivarez Discharge Orders/Prescriptions Prescriptions: New acetaminophen 500 mg Tablet 1,000 mg PO Q8 14 Days Qty: 84 0RF Rx Instructions: Do not take more than 3000 mg Tylenol in a 24-hour period. doxycycline monohydrate 100 mg Capsule 100 mg PO BID 14 Days Qty: 28 0RF aspirin 81 mg Tablet,Chewable 81 mg PO BIDCM 30 Days Qty: 60 0RF Rx Instructions: Take 81 mg aspirin twice daily for 4 weeks postoperatively for DVT prophylaxis. oxycodone 5 mg Tablet 5 - 10 mg PO Q4H PRN PRN (Reason: Pain Score 4-10) 5 Days Qty: 36 0RF Continued ezetimibe 10 mg tablet 10 mg PO DAILY metoprolol succinate 25 mg tablet extended release 24 hr 25 mg PO QHS gabapentin 300 mg capsule 300 mg PO TID pantoprazole 40 MG tablet 40 mg PO DAILY losartan-hydrochlorothiazide 100-25 mg tablet 1 tab PO DAILY Patient Comments: take 1 tablet by mouth once daily potassium 99 mg Tablet 99 mg PO DAILY magnesium 250 mg Tablet 250 mg PO DAILY cyanocobalamin (vitamin B-12) [Vitamin B-12] 2,000 mcg Tablet Extended Release 2,000 mcg PO DAILY cholecalciferol (vitamin D3) [Vitamin D3] 50 mcg (2,000 unit) Capsule 4,000 unit PO DAILY Discontinued aspirin 81 MG tablet,delayed release (DR/EC) 81 mg PO QODAY Other Ambulatory Orders: 12 Lead EKG (Routine) Timeframe: [id number] Location: None Selected Ordered By: Dr. Tony Savage Referrals / Follow Up: Physical,Therapy [Other] - 07/04/23 11:00 am Sade Ocampo MD [Primary Care Provider] - Gulshan Charles PA-C [Med Staff - [facility]] - 07/13/23 2:15 pm Disposition Disposition (needs filled in before D/C Order can be placed): Home, Self Care
--- NOTE | 2023-06-29 12:29 | PHA.DC.MC.R ---
Pharmacy [facility] has performed discharge medication reconciliation and counseling for this patient. The patient's discharge medication list was reviewed for discrepancies and discrepancies were resolved. The patient was counseled on the following discharge medications and changes in medications for homegoing were reviewed. 1. TYLENOL 2. ASPIRIN 3. DOXYCYCLINE 4. OXYCODONE The Reason for Use, instructions for use, and potential side effects were reviewed for all new medications. The patient's questions regarding all of their medications were answered. The patient was able to verbally demonstrate an understanding of their discharge medications. Medications at Discharge Home Medications ezetimibe 10 mg tablet 10 mg PO DAILY 08/10/20 metoprolol succinate 25 mg tablet,extended release 24 hr 25 mg PO QHS 08/10/20 pantoprazole 40 mg tablet,delayed release 40 mg PO DAILY 09/08/20 gabapentin 300 mg capsule 300 mg PO TID 02/07/23 cholecalciferol (vitamin D3) 50 mcg (2,000 unit) capsule (Vitamin D3) 4,000 unit PO DAILY 04/05/23 cyanocobalamin (vitamin B-12) 2,000 mcg tablet,extended release (Vitamin B-12 ER) 2,000 mcg PO DAILY 04/05/23 losartan 100 mg-hydrochlorothiazide 25 mg tablet 1 tab PO DAILY 04/05/23 magnesium 250 mg tablet 250 mg PO DAILY 04/05/23 potassium 99 mg tablet 99 mg PO DAILY 04/05/23 acetaminophen 500 mg tablet 1,000 mg (2 x 500 mg) PO Q8 14 days #84 tabs 06/29/23 aspirin 81 mg chewable tablet 81 mg PO BIDCM 30 days #60 tabs 06/29/23 doxycycline monohydrate 100 mg capsule 100 mg PO BID 14 days #28 caps 06/29/23 oxycodone 5 mg tablet 5 - 10 mg (1 - 2 x 5 mg) PO Q4H PRN PRN Pain Score 4-10 5 days #36 tabs 06/29/23
--- NOTE | 2023-06-29 13:00 | CASEMGMT ---
Social Work SW met with pt and discussed advance directives. Pt confirms she has a living will and health care POA naming her Hossein. Pt aware documents are not of file. SW requested they be brought in for scanning into EMR. RENETTA Dillon
[2023-06-29 14:21] VITALS: BP 133/47; PULSE 85; RESP 16; TEMP 36.6; O2SAT 98
[2023-06-29] MEDS: Doxycycline 100 MG CAPSULE PO (14:25)
== END 2023-06-29 16:54 | disposition home or self-care (01) ==
LOC: SDC 12:45 → MS3 12:45
PROVIDERS: Anesthesiology; Admitting Provider Specialist; PCP Internal Medicine; Referring Provider Specialist; Visit Provider Specialist
PROC: 0SRC0JZ Replacement of Right Knee Joint with Synthetic Substitute, Open Approach (ICD-10-PCS; CPT 27447; principal; 2023-06-28 08:15)
DX: M17.0 Bilateral primary osteoarthritis of knee (principal); I10 Essential (primary) hypertension; M21.161 Varus deformity, not elsewhere classified, right knee; M21.162 Varus deformity, not elsewhere classified, left knee; K21.9 Gastro-esophageal reflux disease without esophagitis; Z85.51 Personal history of malignant neoplasm of bladder; Z92.3 Personal history of irradiation; Z79.899 Other long term (current) drug therapy; Z79.82 Long term (current) use of aspirin
CPT/HCPCS: 27447; S2900; 01402; 64447; 36415; 73560; 80048; 82040; 82962; 83735; 85025; 85027; 87077; 87081; 88305; 88311; 93005; 94668; 94762; 96361; 96365; 96366; 97116; 97162; 97166; 97530; 97535; 99221; 99252; C1776; J7050; J7120; G0378; G0463; J2405; J3475

== ENCOUNTER 2023-07-02 15:06 | Emergency (ER) | payer MEDICARE, OTHER, SELFPAY ==
[2023-07-02 15:09] VITALS: BP 150/58; PULSE 80; RESP 18; TEMP 36.3; O2SAT 98
[2023-07-02 15:13] VITALS: BMI 31.8
--- NOTE | 2023-07-02 15:37 | ED.VIS.LOWEX ---
HPI History of Present Illness Chief Complaint: Lower Extremity Injury Informant: patient and spouse/S.O. Narrative Narrative: 77-year-old female postop day 3 from right total knee replacement (Dr. Savage). Presenting to the emergency department out of concern for dirty bandages. Patient was discharged from the hospital on Monday after overnight stay. She states that she has been up with her walker. She notes that they wrapped her legs with an Davy bandage and they feel very tight. She has noted drainage from the lower mid tibial wound. She denies any fevers. She denies any chest pain or shortness of breath. She has been able to do her exercise. She has been on doxycycline. Patient notes that she has been having some diarrhea. She is also on oxycodone and states that since the oxycodone and doxycycline she has had nausea. She would like something for the [facility] Medical History Arthritis Cancer Carotid stenosis, bilateral Dysphagia Esophageal dysphagia Gastric reflux GERD (gastroesophageal reflux disease) Globus sensation High cholesterol HTN (hypertension) Hx of bladder cancer knee pain Vega neuroma Non-smoker Personal history of colonic polyps PONV (postoperative nausea and vomiting) Post-menopausal Wears partial dentures Home Medications ezetimibe 10 mg tablet 10 mg PO DAILY 08/10/20 [History Last Taken Unknown] metoprolol succinate 25 mg tablet,extended release 24 hr 25 mg PO QHS 08/10/20 [History Last Taken 06/27/23] pantoprazole 40 mg tablet,delayed release 40 mg PO DAILY 09/08/20 [History Last Taken 06/28/23] gabapentin 300 mg capsule 300 mg PO TID 02/07/23 [History Last Taken 04/07/23] cholecalciferol (vitamin D3) 50 mcg (2,000 unit) capsule (Vitamin D3) 4,000 unit PO DAILY 04/05/23 [History Last Taken Unknown] cyanocobalamin (vitamin B-12) 2,000 mcg tablet,extended release (Vitamin B-12 ER) 2,000 mcg PO DAILY 04/05/23 [History Last Taken Unknown] losartan 100 mg-hydrochlorothiazide 25 mg tablet 1 tab PO DAILY 04/05/23 [History Last Taken Unknown] magnesium 250 mg tablet 250 mg PO DAILY 04/05/23 [History Last Taken Unknown] potassium 99 mg tablet 99 mg PO DAILY 04/05/23 [History Last Taken Unknown] acetaminophen 500 mg tablet 1,000 mg (2 x 500 mg) PO Q8 14 days #84 tabs 06/29/23 [Rx Last Taken Unknown] aspirin 81 mg chewable tablet 81 mg PO BIDCM 30 days #60 tabs 06/29/23 [Rx Last Taken Unknown] doxycycline monohydrate 100 mg capsule 100 mg PO BID 14 days #28 caps 06/29/23 [Rx Last Taken Unknown] oxycodone 5 mg tablet 5 - 10 mg (1 - 2 x 5 mg) PO Q4H PRN PRN Pain Score 4-10 5 days #36 tabs 06/29/23 [Rx Last Taken Unknown] ondansetron 4 mg disintegrating tablet 4 mg PO Q8H PRN PRN Nausea #20 tabs 07/02/23 [Rx Last Taken Unknown] Allergy/AdvReac Type Severity Reaction Status Date / Time clavulanic acid Allergy Mild GI upset Verified 06/28/23 06:43 [From Augmentin] adhesive tape [tape] Allergy Bleeding Verified 06/28/23 06:43 amoxicillin [From Augmentin] AdvReac Mild GI upset Verified 06/28/23 06:43 ciprofloxacin [From Cipro] AdvReac Mild Diarrhea Verified 06/28/23 06:43 levofloxacin [From Levaquin] AdvReac Mild gi upset Verified 06/28/23 06:43 doxycycline AdvReac Upset Verified 07/02/23 15:09 Stomach Family History Father Parkinson disease Carotid stenosis, bilateral Grandfather CVA (cerebral vascular accident) Grandmother Cancer lung Surgical History History of bladder surgery History of cataract extraction History of esophagogastroduodenoscopy (EGD) History of hysterectomy History of tonsillectomy Hx of cervical discectomy Hx of colonoscopy Status post debridement of bone spur Status post total right knee replacement Social History Smoking Status: Never smoker alcohol intake: never ROS ROS ED Constitutional Constitutional ED: Denies chills or weight loss Eyes Eyes: Denies change in vision or diplopia ENT ENT ED: Denies ear pain, rhinorrhea or sore throat Cardiovascular Cardiovascular: Denies chest pain, orthopnea, palpitations or racing heartbeat Respiratory/Chest Respiratory/Chest: Denies cough, dyspnea or orthopnea Gastrointestinal Gastrointestinal: Denies abdominal pain, diarrhea, nausea or vomiting Genitourinary Genitourinary ED: Denies dysuria, hematuria or urinary frequency Musculoskeletal Musculoskeletal: Reports other Details: Patient notes right leg swelling drainage on surgical dressings ; Denies arthralgias, myalgias or neck pain Integumentary Reports other Details: See HPI ; Denies abscess or rash Neurologic Neurologic: Denies headache(s) or weakness Psychiatric Psychiatric: Denies anxiety, depression, suicidal ideation or suicidal thoughts Endocrine Endocrinology: Denies polydipsia, polyphagia or polyuria Allergic/Immunologic Allergic/Immunologic ED: Denies mouth swelling, tongue swelling or urticaria EXAM Physical Exam Narrative Exam Narrative: Well-appearing female sitting comfortably in bed. Const Vital Signs: 07/02/23 15:09 Temperature 97.4 F L Temperature Source Temporal Pulse Rate 80 Respiratory Rate 18 Blood Pressure 150/58 H Blood Pressure Mean 88 Pulse Ox 98 Oxygen Delivery Method Room Air Positive well nourished and well developed General Appearance ED: well developed HEENT Reports normocephalic, head/scalp atraumatic and moist mucous membranes Eyes PERRL and EOMs intact bilaterally Neck full ROM, no lymphadenopathy, supple and no JVD Resp normal respiratory effort and clear to auscultation bilaterally Cardio regular rate, regular rhythm and no murmurs GI normal to inspection, nondistended, normoactive bowel sounds and non-tender Palpation: soft Back/Spine no CVA tenderness and normal ROM Extremity Extremity Narrative: The right leg demonstrates 3 areas of incisions they are on the anterior aspect of the right thigh over the right knee and the right mid tibia. Incisions appear clean and intact. However located along the tibial incision which is held together by elicia there is skin that has torn along the lateral insertion point of the elicia. This is resulting in some mild oozing of blood. There is ecchymosis in the surgical area. There is some swelling of the knee joint but not out of proportion to recent replacement. The calves are nontender. There are no palpable cords. Strong dorsalis pedis posterior tibial pulses. Brisk capillary refill. Sensation intact. Neuro oriented x3 and CN's II-XII intact bilaterally Sensorium / Orientation: alert Motor Exam: strength 5/5 throughout Psych mental status grossly normal Mood & Affect: Negative for depressed or tearful Skin no rashes or lesions noted and no wounds MDM MDM MDM Narrative Medical decision making narrative: I do not think that the patient has DVT/PE. This appears to be drainage from torn thin skin. Patient has evidence of thin skin elsewhere in her body. I do not think that there is any evidence of infection at this point. There is no increased warmth of the joint. I spoke with Dr. Noe and we applied some Dermabond around the stapled incision line. This resulted in no further oozing of blood. Wounds were then dressed the same as they were postoperatively including Davy wrap and CONCHA hose. Patient will be discharged home. She was given return instructions she notes understanding. She will follow-up in the office as scheduled on Monday. I will write nausea medication in the form of Zofran. She was advised on the risk of constipation with Zofran as well as the oxycodone. Discharge Plan Triage Chief Complaint: Lower Extremity Injury ED Provider: Suraj Alexander Dx/Rx/DC Orders Clinical Impression: Encounter for post surgical wound check, Status post total right knee replacement, Nausea Instructions: Knee Replacement Post Op Prescriptions: New ondansetron [ondansetron] 4 mg tablet,disintegrating 4 mg PO Q8H PRN PRN (Reason: Nausea) Qty: 20 0RF No Action ezetimibe 10 mg tablet 10 mg PO DAILY metoprolol succinate 25 mg tablet extended release 24 hr 25 mg PO QHS gabapentin 300 mg capsule 300 mg PO TID pantoprazole 40 MG tablet 40 mg PO DAILY losartan-hydrochlorothiazide 100-25 mg tablet 1 tab PO DAILY Patient Comments: take 1 tablet by mouth once daily potassium 99 mg Tablet 99 mg PO DAILY magnesium 250 mg Tablet 250 mg PO DAILY cyanocobalamin (vitamin B-12) [Vitamin B-12] 2,000 mcg Tablet Extended Release 2,000 mcg PO DAILY cholecalciferol (vitamin D3) [Vitamin D3] 50 mcg (2,000 unit) Capsule 4,000 unit PO DAILY acetaminophen 500 mg Tablet 1,000 mg PO Q8 14 Days Qty: 84 0RF Rx Instructions: Do not take more than 3000 mg Tylenol in a 24-hour period. doxycycline monohydrate 100 mg Capsule 100 mg PO BID 14 Days Qty: 28 0RF aspirin 81 mg Tablet,Chewable 81 mg PO BIDCM 30 Days Qty: 60 0RF Rx Instructions: Take 81 mg aspirin twice daily for 4 weeks postoperatively for DVT prophylaxis. oxycodone 5 mg Tablet 5 - 10 mg PO Q4H PRN PRN (Reason: Pain Score 4-10) 5 Days Qty: 36 0RF Primary Care Provider: Sade Ocampo Referrals: Sade Ocampo MD [Primary Care Provider] - Tony Savage MD [Med Staff - Active Staff] - [facility] appointment Disposition Disposition: Home, Self Care
[2023-07-02 16:05] VITALS: PULSE 69; RESP 17; O2SAT 97
== END 2023-07-02 16:21 | disposition home or self-care (01) ==
LOC: ED 16:08
PROVIDERS: Emergency Provider Emergency Medicine; PCP Internal Medicine; Visit Provider Emergency Medicine
DX: Z51.89 Encounter for other specified aftercare (principal); Z96.651 Presence of right artificial knee joint; R11.0 Nausea
CPT/HCPCS: 12001; 99283

== ENCOUNTER → 2023-11-20 | Outpatient (CLI) | payer MEDICARE, OTHER, SELFPAY ==
--- NOTE | 2023-11-20 14:00 | MRI_ITS ---
STUDY: MRI RIGHT ANKLE WITHOUT CONTRAST REASON FOR EXAM: Female, 78 years old. ABNORMAL FINDING ON XRAY, LUCENCY MEDIAL TALUS SUSPICIOUS FOR AVASCULAR NECROSIS TECHNIQUE: Standardized fat and water weighted pulse sequences were obtained in all 3 orthogonal planes. COMPARISON: CT lower extremity dated 05/31/2023. FINDINGS: Normal posterior tibialis tendon. Normal flexor digitorum longus tendon. Normal flexor hallucis longus tendon. Normal peroneus longus and brevis tendons. Normal tibialis anterior tendon. Normal extensor hallucis longus tendon. Normal extensor digitorum longus tendons. Normal Achilles tendon and teno-osseous insertion. Normal plantar fascia. There is a plantar calcaneal spur. Normal intrinsic muscles of the rearfoot. Normal distal tibiofibular syndesmotic ligamentous complex. Normal lateral ligamentous complex. Normal subtalar ligaments and sinus tarsi. Normal deltoid ligamentous complex. Normal plantar calcaneonavicular (spring) ligament. There is a small osteochondral lesion along the medial talar dome, overall measuring 5 mm AP, 2 mm transverse, and 3 mm in depth (axial T1 series 4 image 19; sagittal STIR series 6 image 15; coronal T2 series 7 image 18). There is no evidence of avascular necrosis. There is a tiny posterior subtalar joint effusion. Normal talonavicular articulation. Normal calcaneocuboid articulation. There is mild marrow stress edema in the medial cuneiform and intermediate cuneiform. There is mild subcutaneous soft tissue edema along the medial and lateral aspects of the upper ankle. MRI/Lower Ext Joint Only (Routine) IMPRESSION: Small 5 x 2 x 3 mm osteochondral lesion along the medial talar dome. No evidence of avascular necrosis. Tiny posterior subtalar joint effusion. Mild marrow stress edema in the medial cuneiform and intermediate cuneiform. Mild subcutaneous soft tissue edema along the medial and lateral aspects of the upper ankle. Plantar calcaneal spur. Electronically Signed: Charan Paerson MD at 8:15 EST ,
== END | disposition home or self-care (01) ==
LOC: MRI 13:27
PROVIDERS: PCP Internal Medicine; Referring Provider Physician Assistant Surgical; Visit Provider Physician Assistant Surgical
DX: R93.6 Abnormal findings on diagnostic imaging of limbs (principal); M25.571 Pain in right ankle and joints of right foot
CPT/HCPCS: 73721

== ENCOUNTER → 2023-12-29 | Outpatient (CLI) | payer MEDICARE, OTHER, SELFPAY ==
--- NOTE | 2023-12-29 12:52 | BI_ITS ---
MAMMOGRAPHY - BILATERAL SCREENING REASON FOR EXAM: Female, 78 years old. Routine annual screening examination. PERTINENT HISTORY: Grandmother with breast cancer. TECHNIQUE: Digital bilateral breast lj (3D mammographic acquisition) in the CC and MLO projections. 2-D mediolateral oblique (MLO) and craniocaudad (CC) views of both breasts were obtained. CAD: Full Field Digital Mammography with Computer Added Detection was performed. COMPARISON: Comparison is made with prior study dated October 14, 2022 and August 18, 2021. FINDINGS: Breast Composition: There are scattered areas of fibroglandular density. There are no dominant masses or suspicious calcifications. Stable bilateral secretory calcifications more prominent in the right breast. No other significant abnormalities are identified. There has been no significant change since the prior study. BI/SCRN MAMM (CAD)W/LJ BILAT IMPRESSION: Stable bilateral screening mammogram. Yearly follow-up mammogram recommended. (A) ASSESSMENT CATEGORY: BIRADS Category 2: Benign. A letter regarding these results will be sent to the patient by the facility within 30 days. Approximately 10% of breast cancers are not detected by mammography. A normal mammogram should not delay biopsy of a clinically suspicious abnormality. [id number] Electronically Signed: Mikey Pierre MD at 13:37 EST ,
== END | disposition home or self-care (01) ==
LOC: OPBD 12:52
PROVIDERS: PCP Internal Medicine; Referring Provider Internal Medicine; Visit Provider Internal Medicine
DX: Z12.31 Encounter for screening mammogram for malignant neoplasm of breast (principal)
CPT/HCPCS: 77063; 77067

== ENCOUNTER 2024-01-05 09:24 | Day surgery (SDC) | payer MEDICARE, OTHER, SELFPAY ==
[2024-01-05] VITALS (7 sets, daily range): BP systolic 99–139; BP diastolic 37–58; PULSE 70–77; RESP 16; TEMP 36–36.1; O2SAT 98–100; BMI 29.8
--- NOTE | 2024-01-05 09:47 | HP.PCM_ITS ---
History and Physical Date of Admission: 01/05/24 Visit Reasons: RECALL LETTER-COLONOSCOPY Chief Complaint: Colonoscopy consult Audio Operator Required: No Is patient in pain?: No Allergies clavulanic acid [From Augmentin] Allergy (Mild, Verified 11/23/23 12:50) GI upsetadhesive tape [tape] Allergy (Verified 11/23/23 12:50) Bleedingamoxicillin [From Augmentin] Adverse Reaction (Mild, Verified 11/23/23 12:50) GI upsetciprofloxacin [From Cipro] Adverse Reaction (Mild, Verified 11/23/23 12:50) Diarrhealevofloxacin [From Levaquin] Adverse Reaction (Mild, Verified 11/23/23 12:50) gi upset doxycycline Adverse Reaction (Verified 11/23/23 12:50) Upset Stomach Medications ezetimibe 10 mg tablet 10 mg PO DAILY 08/10/20 [History Confirmed 11/23/23] metoprolol succinate 25 mg tablet,extended release 24 hr 25 mg PO QHS 08/10/20 [History Confirmed 11/23/23] pantoprazole 40 mg tablet,delayed release 40 mg PO DAILY 09/08/20 [History Confirmed 11/23/23] gabapentin 300 mg capsule 300 mg PO TID 02/07/23 [History Confirmed 11/23/23] cholecalciferol (vitamin D3) 50 mcg (2,000 unit) capsule (Vitamin D3) 4,000 unit PO DAILY 04/05/23 [History Confirmed 11/23/23] cyanocobalamin (vitamin B-12) 2,000 mcg tablet,extended release (Vitamin B-12 ER) 2,000 mcg PO DAILY 04/05/23 [History Confirmed 11/23/23] losartan 100 mg-hydrochlorothiazide 25 mg tablet 1 tab PO DAILY 04/05/23 [History Confirmed 11/23/23] magnesium 250 mg tablet 250 mg PO DAILY 04/05/23 [History Confirmed 11/23/23] potassium 99 mg tablet 99 mg PO DAILY 04/05/23 [History Confirmed 11/23/23] acetaminophen 500 mg tablet 1,000 mg (2 x 500 mg) PO Q8 14 days #84 tabs 06/29/23 [Rx Confirmed 11/23/23] aspirin 81 mg chewable tablet 81 mg PO BIDCM 30 days #60 tabs 08/31/23 [Rx Confirmed 11/23/23] doxycycline monohydrate 100 mg capsule 100 mg PO BID 14 days #28 caps 06/29/23 [Rx Confirmed 11/23/23] oxycodone 5 mg tablet 5 - 10 mg (1 - 2 x 5 mg) PO Q4H PRN PRN Pain Score 4-10 5 days #36 tabs 06/29/23 [Rx Confirmed 11/23/23] ondansetron 4 mg disintegrating tablet 4 mg PO Q8H PRN PRN Nausea #20 tabs 07/02/23 [Rx Confirmed 11/23/23] PFSH Medical History Arthritis Cancer Carotid stenosis, bilateral Dysphagia Esophageal dysphagia Gastric reflux GERD (gastroesophageal reflux disease) Globus sensation High cholesterol HTN (hypertension) Hx of bladder cancer knee pain Vega neuroma Non-smoker Personal history of colonic polyps PONV (postoperative nausea and vomiting) Post-menopausal Wears partial dentures Surgical History History of bladder surgery History of cataract extraction History of esophagogastroduodenoscopy (EGD) History of hysterectomy History of tonsillectomy Hx of cervical discectomy Hx of colonoscopy Status post debridement of bone spur Status post total right knee replacement Family History Father Parkinson disease Carotid stenosis, bilateralGrandfather CVA (cerebral vascular accident)Grandmother Cancer lung Social History Smoking Status: Never smoker alcohol intake: never HPI HPI HPI: 78-year-old female presents in referral call for a surveillance colonoscopy. I have most recently assisted her on May 09, 2023 when I performed a esophagogastroduodenoscopy. Reflux esophagitis and a small hiatal hernia identi fied with multiple gastric polyps. H. pylori was negative. Mild chronic antral inflammation identified and benign fundic polyps. On biopsy the distal esophagus did not demonstrate reflux. Her most recent colonoscopy was per myself on September 11, 2020. 4 polyps were removed at that time. Pathology demonstrated that the proximal transverse colon and distal transverse colon and descending colon polyps were tubular adenomas while the sigmoid polyp was hyperplastic. The procedure was stated to have been performed without difficulty and that the bowel prep was good. The patient has no complaints today. No abdominal pain. No bright red blood per rectum or melena. No change in bowel habits. She did have knee replacement surgery and that was quite difficult for her. She is got some ongoing problems now with the right ankle as well. ROS General General: Yes fatigue; No weight change, appetite, colon cancer, breast cancer or weakness HEENT HEENT: Yes difficulty swallowing; No eye injury, eye surgery, swollen glands or hoarseness Endo Endocrine: No thyroid disease, diabetes mellitus, thyroid cancer, Hair loss, heat intolerance or cold intolerance Skin Skin: No rash or changing moles Breast Breast: No left breast lump, right breast lump, nipple discharge, breast pain, abnormal mammogram, abnormal US or breast enlargement Musc Musculoskeletal: Yes arthritis; No back problems, rheumatoid arthritis, gout or joint pain Cardio Cardiovascular: Yes high blood pressure; No murmur, pacemaker, heart disease, atrial fibrillation, heart attack, heart stent, palpitations, shortness of breat with exertion or chest pain Resp Respiratory: No shortness of breath, No sleep apnea, No cough, No COPD, No asthma, No emphysema and No wheezing Gastro Gastrointestinal: No abdominal pain, No nausea or vomiting, No diarrhea, No constipation, No blood in stool, Yes acid reflux, No hemorrhoids, No ulcers, No gallbladder problem and No black,tarry stools Rony Hematologic: No blood thinners, No blood disorders, No bleeding, No anemia and No blood clots Neuro Neurologic: No system reviewed and no additional complaints, except as documented, No as per HPI, No abnormal gait, No abnormal hearing, No abnormal movements, No abnormal speech, No behavioral changes, No burning sensations, No confusion, No convulsions, No disequilibrium, No dizziness, No localized weakness, No frequent falls, No headache(s), No lack of coordination, No loss of vision, No memory loss, No numbness, No other visual disturbances, No radicular pain, No restless legs, No sensory deficit, No syncope, No tingling, No tremor(s), No weakness and No other Exam Const General: cooperative, healthy appearing, comfortable and no acute distress [facility] Head: normal to inspection Eyes General: appearance normal, both eyes and all related structures Neck Neck: normal visual inspection Resp Effort & Inspection: normal respiratory effort Auscultation: clear to auscultation bilaterally Cardio Rate: regular rate Rhythm: regular rhythm GI Palpation: soft and no hepatosplenomegaly Musc Cervical Spine: normal cervical lordosis Skin General: no rashes or lesions noted Neuro General: patient alert, patient awake and patient oriented x3 Extrem General: no calf tenderness Other: Slight bilateral lower extremity malleolar swelling Psych Appearance: grossly normal Assessment and Plan Assessment and Plan (1) Personal history of colonic polyps: Status: Acute Plan: I recommended the patient a colonoscopy with possible biopsy or polypectomy as indicated. She is enjoying a good quality of life. She has had a personal previous history of multiple colon polyps. We have discussed the technique, benefit, risk, alternatives. She has had an opportunity to ask and have questions answered. We will schedule procedure at her discretion. I appreciate the ongoing opportunity of assisting with her surgical care. Copy: Dr. Sade Humphries M.D., F.A.C.S I have examined the patient and the H&P has been reviewed. There are no clinical changes since date of exam. Teodoro Humphries M.D., F.A.C.S.
[2024-01-05] MEDS: Lactated Ringers 1,000 ML 15 ML IV (09:54)
--- NOTE | 2024-01-05 10:30 | COLBX_PTH ---
PATHOLOGY RESULTS PATIENT: SACHIN LYNN LOC: EN U#:[id number] AGE/SX: 78/F ROOM: RE01/05/[address]: Dr. Teodoro Humphries MD : 1945 BED: DIS: 01/05/2024 SPEC #: [id number] RECD: 01/05/24 12:47 STATUS: RONALD CYNTHIA #: [id number] BRISEIDA: 01/05/24 10:[address]: Teodoro Humphries DEPT: SURGICAL PATHOLOGY RECD BY: Daisy Mejia ENTERED: 01/05/24 12:47 SP TYPE: COLON BX OTHR DR: Dr. Sade Ocampo MD Tissues: POLYP POLYP Procedures: Surgery Specimen Level IV HEADER OPERATION: Colonoscopy, biopsy PRE-OP DIAGNOSIS: History of colonic polyps TISSUE SUBMITTED: A - Polyps biopsy x3, B - Polyps biopsy x2 MICROSCOPIC DIAGNOSIS A. Distal sigmoid polyp x3, biopsy: Fragments of hyperplastic polyp. B. Distal sigmoid polyp x2, biopsy: Fragments of hyperplastic polyp. DAVIDSON:mendy 01/08/2024 MICROSCOPIC DESCRIPTION Slides are reviewed. GROSS DESCRIPTION A - Received in fixative is one container labeled with the patient's name and designated distal sigmoid polyp x3. The specimen consists of three irregular fragments of light solo soft tissue that in aggregate measure 0.8 x 0.3 x 0.1 cm. The specimen is totally submitted in one cassette. B - Received in fixative is one container labeled with the patient's name and designated distal sigmoid polyp x2. The specimen consists of two irregular fragments of light solo soft tissue that in aggregate measure 0.6 x 0.3 x 0.1 cm. The specimen is totally submitted in one cassette. / DAVIDSON:mendy 01/05/2024 TC:1 CPT: 24798 x2
--- NOTE | 2024-01-05 11:39 | OP.CCLET_ITS ---
01/05/2024 Sade Ocampo Re : Colonoscopy procedure for Emeli Rojas [place] This procedure was performed on Friday, January 05, 2024. My impressions and recommendations are as follows: Impressions : - Hemorrhoids found on perianal exam. - Diverticulosis in the sigmoid colon. - Three 2 to 3 mm polyps in the distal sigmoid colon, removed with a cold biopsy forceps. Resected and retrieved. - Two 2 to 3 mm polyps in the distal sigmoid colon, removed with a cold biopsy forceps. Resected and retrieved. Recommendations : - Telephone my office for pathology results in 1 week. - Repeat colonoscopy is not recommended due to current age (66 years or older) for screening purposes. These polyps all sessile benign in appearance. If they are all hyperplastic then a repeat colonoscopy likely will not be required. The patient will be notified of pathology results as they become available. - Continue present medications. My findings are described in the full procedure note, which is enclosed. If I can be of further assistance, please feel free to contact me at Doctor phone number(s): Work: . Sincerely, Teodoro Humphries MD 01/05/2024 11:39:08 AM This report has been signed electronically.
--- NOTE | 2024-01-05 11:39 | OP.COLON_ITS ---
Patient Name: Emeli Stephenson Procedure Date: 01/05/2024 11:08 AM Date of : 1945 Age: 78 Procedure: Colonoscopy Indications: High risk colon cancer surveillance: Personal history of colonic polyps Providers: Teodoro Humphries MD Referring MD: Sade Ocampo Medicines: See the Anesthesia note for documentation of the administered medications Patient Profile: Last Colonoscopy: August 2020. Complications: No immediate complications. Procedure: Pre-Anesthesia Assessment: - Prior to the procedure, a History and Physical was performed, and patient medications and allergies were reviewed. The patient's tolerance of previous anesthesia was also reviewed. The risks and benefits of the procedure and the sedation options and risks were discussed with the patient. All questions were answered, and informed consent was obtained. Prior Anticoagulants: The patient has taken no anticoagulant or antiplatelet agents. ASA Grade Assessment: II - A patient with mild systemic disease. After reviewing the risks and benefits, the patient was deemed in satisfactory condition to undergo the procedure. After I obtained informed consent, the scope was passed under direct vision. Throughout the procedure, the patient's blood pressure, pulse, and oxygen saturations were monitored continuously. The Colonoscope was introduced through the anus and advanced to the cecum, identified by appendiceal orifice and ileocecal valve. The colonoscopy was performed without difficulty. The patient tolerated the procedure well. The quality of the bowel preparation was good. The ileocecal valve and the appendiceal orifice were photographed. Scope In: 11:12:24 AM Scope Withdrawal Time 0 hours 15 minutes 40 seconds Scope Out: 11:32:50 AM Total Procedure Duration Time 0 hours 20 minutes 26 seconds Findings: Hemorrhoids were found on perianal exam. Scattered diverticula were found in the sigmoid colon. Three sessile polyps were found in the distal sigmoid colon. The polyps were 2 to 3 mm in size. These polyps were removed with a cold biopsy forceps. Resection and retrieval were complete. Two sessile polyps were found in the distal sigmoid colon. The polyps were 2 to 3 mm in size. These polyps were removed with a cold biopsy forceps. Resection and retrieval were complete. Impression: - Hemorrhoids found on perianal exam. - Diverticulosis in the sigmoid colon. - Three 2 to 3 mm polyps in the distal sigmoid colon, removed with a cold biopsy forceps. Resected and retrieved. - Two 2 to 3 mm polyps in the distal sigmoid colon, removed with a cold biopsy forceps. Resected and retrieved. Recommendation: - Telephone my office for pathology results in 1 week. - Repeat colonoscopy is not recommended due to current age (66 years or older) for screening purposes. These polyps all sessile benign in appearance. If they are all hyperplastic then a repeat colonoscopy likely will not be required. The patient will be notified of pathology results as they become available. - Continue present medications. Procedure Code(s): --- Professional --- 02177, Colonoscopy, flexible; with biopsy, single or multiple Diagnosis Code(s): --- Professional --- Z86.010, Personal history of colonic polyps K64.9, Unspecified hemorrhoids D12.5, Benign neoplasm of sigmoid colon K57.30, Diverticulosis of large intestine without perforation or abscess without bleeding CPT copyright 2021 [employer]. All rights reserved. The codes documented in this report are preliminary and upon exerciser review may be revised to meet current compliance requirements. Teodoro Humphries MD 01/05/2024 11:39:08 AM This report has been signed electronically. Number of Addenda: 0 Note Initiated On: 01/05/2024 11:08 AM
== END 2024-01-05 12:33 | disposition home or self-care (01) ==
LOC: EN 09:24 → AC 09:26
PROVIDERS: PCP Internal Medicine; Referring Provider Internal Medicine; Visit Provider Surgery
PROC: 0DJD8ZZ Inspection of Lower Intestinal Tract, Via Natural or Artificial Opening Endoscopic (ICD-10-PCS; CPT 45378; principal; 2024-01-05 10:25)
DX: Z12.11 Encounter for screening for malignant neoplasm of colon (principal); E78.00 Pure hypercholesterolemia, unspecified; K21.00 Gastro-esophageal reflux disease with esophagitis, without bleeding; K64.4 Residual hemorrhoidal skin tags; Z86.010 Personal history of colon polyps; K57.30 Diverticulosis of large intestine without perforation or abscess without bleeding; K63.5 Polyp of colon; I10 Essential (primary) hypertension; Z79.899 Other long term (current) drug therapy; Z79.82 Long term (current) use of aspirin; Z87.19 Personal history of other diseases of the digestive system
CPT/HCPCS: 45380; 88305; J7120; J2405

== ENCOUNTER → 2024-04-10 | Outpatient (CLI) | payer MEDICARE, OTHER, SELFPAY ==
--- NOTE | 2024-04-10 14:52 | CDU_ITS ---
Reason For Study: Coronary Artery Disease Rt. Velocities/BP Lt. Velocities/BP Prox CCA 118.3/17.3 cm/sec. Prox CCA 119.0/20.5 cm/sec. Mid CCA 65.0/12.2 cm/sec. Mid CCA 82.0/10.8 cm/sec. Dist CCA 68.6/13.4 cm/sec. Dist CCA 93.0/12.6 cm/sec. Prox ICA 309.4/65.9 cm/sec. Prox ICA 59.1/19.5 cm/sec. Mid ICA 105.1/28.3 cm/sec. Mid ICA 94.2/26.1 cm/sec. Dist ICA 100.8/26.1 cm/sec. Dist ICA 118.3/26.1 cm/sec. Rt. ICA/CCA = 4.76. Lt. ICA/CCA = 1.44. Prox ECA 89.8/4.2 cm/sec. Prox ECA 133.7/4.2 cm/sec. Rt. Vert. 63.7/12.2 cm/sec. Lt. Vert. 76.0/15.8 cm/sec. Right Extracranial There is intimal thickening but no significant atherosclerotic plaque noted in the right common carotid artery. There is heterogeneous, irregular atherosclerotic plaque noted in the right internal carotid artery. There is heterogeneous, irregular atherosclerotic plaque noted in the right external carotid artery. Antegrade flow is noted in the right vertebral artery. Left Extracranial There is homogeneous, smooth atherosclerotic plaque noted in the left common carotid artery. There is homogeneous, smooth atherosclerotic plaque noted in the left internal carotid artery. There is heterogeneous, irregular atherosclerotic plaque noted in the left external carotid artery. Antegrade flow is noted in the left vertebral artery. Procedure Peliminary report given to RORY CHEEMA. Carotid Duplex 07462. This is a Carotid Duplex examination using B-mode, color flow and specral Doppler. Exam performed in department. VL/Carotid Duplex Ultrasound Interpretation Summary Severe (>70%) stenosis right extracranial internal carotid. Mild (<50%) stenosis left extracranial internal carotid. Patent and antegrade vertebrals bilaterally. Ordering Physician: Sade Ocampo Referring Physician: Sade Ocampo Performed By: Tika Hamlin RVT and Student
== END | disposition home or self-care (01) ==
LOC: CVS 14:51
PROVIDERS: PCP Internal Medicine; Referring Provider Internal Medicine; Visit Provider Internal Medicine
DX: I25.10 Atherosclerotic heart disease of native coronary artery without angina pectoris (principal); I65.23 Occlusion and stenosis of bilateral carotid arteries
CPT/HCPCS: 93880

== ENCOUNTER → 2024-05-07 | Outpatient (CLI) | payer MEDICARE, OTHER, SELFPAY ==
--- NOTE | 2024-05-07 08:15 | US_ITS ---
STUDY: ABDOMINAL ULTRASOUND - RIGHT UPPER QUADRANT; ELASTOGRAPHY REASON FOR VISIT: Female, 78 years old. Fatty infiltration of the liver. TECHNIQUE: Ultrasound evaluation of the right upper quadrant was performed with real-time and static rashid-scale imaging. Point quantification shear wave elastography was performed (Monitor My Meds). TECHNICAL QUALITY: Adequate. COMPARISON: None. FINDINGS: Liver: The liver measures 15.8 cm. There is increased echogenicity consistent with fatty infiltration. The bile ducts are within normal limits. There is hepatic color flow. The direction of portal flow is hepatopetal. There is no demonstrated mass lesion. Median liver stiffness measured 7.7 kPa. Gallbladder: Normal distended gallbladder. The gallbladder wall measures 3 mm. There is a negative sonographic Pabon''s sign. There is no pericholecystic fluid. There are multiple echogenic structures within the gallbladder, consistent with multiple gallstones. Common Bile Duct (C.B.D.): The common bile duct measures 5 mm. Pancreas: There is normal echogenicity of the visualized pancreas. There is no demonstrated pancreatic mass or cyst. Right Kidney: Normal size of the right kidney. The right kidney measures 10.7 cm x 5.2 cm x 4.8 cm. Normal renal cortex. The right cortex measures 1.4 cm. There is no demonstrated renal mass or cyst. There is no right hydronephrosis. US/ABD Limited w/ Elastography IMPRESSION: 1. Liver stiffness measures 7.7 kPa compatible with F2-F3 (Mild to moderate liver fibrosis) Metavir score. 2. Fatty infiltration of the liver. Multiple gallstones. Electronically Signed: Mikey Pierre MD at 12:48 EDT ,
== END | disposition home or self-care (01) ==
LOC: US 08:15
PROVIDERS: PCP Internal Medicine; Referring Provider Internal Medicine; Visit Provider Internal Medicine
DX: K76.0 Fatty (change of) liver, not elsewhere classified (principal)
CPT/HCPCS: 76705; 76981

== ENCOUNTER → 2024-05-15 | Outpatient (CLI) | payer MEDICARE, OTHER, SELFPAY ==
--- NOTE | 2024-05-15 12:20 | CT_ITS ---
STUDY: CT CHEST WITH CONTRAST REASON FOR EXAM: Female, 78 years old. Carotid stenosis, limited chest over-read ONLY RADIATION DOSAGE (If Supplied By Facility): CTDIvol = ( 29.84 ) mGy, DLP = ( 988.74 ) mGycm TECHNIQUE: Transaxial imaging was performed following intravenous administration of IV 55mL Isovue-370. Individualized dose optimization techniques were used for this CT. COMPARISON: No relevant priors. FINDINGS: CHEST The previously seen low density mass in the left upper lobe is increased in size. It presently measures 2.7 cm x 2.7 cm. There is no demonstrated pleural abnormality. There are minimal calcifications of the coronary arteries. Normal mediastinum. Normal hilar regions. Normal unenhanced pulmonary arteries. Normal aorta arch and descending thoracic aorta. Normal osseous structures. Diffuse fatty infiltration of the liver. CT/Limited Chest CT Cardiac Only IMPRESSION: Minimal coronary calcification. Increased size of the previously seen low density nodule in the anterior aspect of the left upper lobe. Electronically Signed: Mikey Pierre MD at 15:10 EDT ,
[2024-05-15 12:44] VITALS: BP 145/60; PULSE 69; RESP 18; TEMP 36.5; O2SAT 98; BMI 31.5
[2024-05-15] MEDS: 0.9% Saline Lock 10 ML Syringe IV (12:55)
[2024-05-15 13:11] VITALS: BP 143/67; PULSE 82
[2024-05-15] MEDS: Nitroglycerin SL (ED/IMG/CATH) 0.4 MG TABLET SL (13:11)
[2024-05-15 13:12] VITALS: BP 143/67; PULSE 79; RESP 18; O2SAT 96
[2024-05-15 13:13] LABS: CREATININE FINGERSTICK < 1.0 mg/dL (0.55-1.02); EGFR FINGERSTICK > 60.0000 mL/min (>60)
--- NOTE | 2024-05-15 17:26 | CCTA_ITS ---
CCTA w/Cont Coronary Arteries Date of Study:: 05/15/24 Preop for carotid stenosis Coronary Calcium Scoring: High-resolution Computed Tomographic imaging of the chest was performed on [05/15/2024], with particular attention paid to the coronary arteries. Intravenous contrast agent was administered per protocol and images reconstructed and displayed. LEFT MAIN CORONARY ARTERY: Arises from the left coronary cusp and is otherwise normal and trifurcates into a left anterior descending artery, ramus intermedius, and obtuse marginal vessel [] LEFT ANTERIOR DESCENDING CORONARY ARTERY: Medium size vessel with a focal area of calcification in the proximal segment nonobstructive with the distal vessel having mild plaque only [] LEFT CIRCUMFLEX CORONARY ARTERY: Nondominant vessel with the first obtuse m arginal branch with no significant stenosis present [] RIGHT CORONARY ARTERY: Focal proximal calcification with mild eccentric plaquing [ Ramus intermedius vessel: No significant stenosis noted within this vessel THORACIC AORTA: Normal [] PULMONARY ARTERY: Normal size CORONARY CALCIUM SCORE: Conclusion: Mild atherosclerotic focal plaquing in the left anterior descending artery and right coronary artery. No high-grade stenosis noted []
== END | disposition home or self-care (01) ==
PROVIDERS: PCP Internal Medicine; Referring Provider Internal Medicine; Visit Provider Internal Medicine
DX: Z01.812 Encounter for preprocedural laboratory examination (principal); I10 Essential (primary) hypertension; I65.29 Occlusion and stenosis of unspecified carotid artery; I25.10 Atherosclerotic heart disease of native coronary artery without angina pectoris
CPT/HCPCS: 75574; 76380; Q9967

== ENCOUNTER → 2024-06-06 | Outpatient (CLI) | payer MEDICARE, OTHER, SELFPAY ==
--- NOTE | 2024-06-06 13:21 | CT_ITS ---
INDICATION: R ICA stenosis EXAMINATION: CT BRAIN WITHOUT CONTRAST, CTA HEAD, AND CTA NECK TECHNIQUE: Noncontrast axial images were obtained of the brain. Subsequently, routine carotid CT angiogram protocol was performed without and with IV contrast. In addition, images were obtained of the [place]. NASCET criteria using the distal ICAs for comparison were used for evaluation of stenoses. 3D reconstructions were reviewed. The protocol utilizes one or more of the following dose reduction techniques: automated exposure control, adjustment of mA and/or kV according to patient size,and/or use of iterative reconstruction technique. IV Contrast dosage and agent: 100 mL of Isovue-370 COMPARISON: No relevant prior comparison study available FINDINGS: --CT BRAIN WITHOUT CONTRAST: BRAIN PARENCHYMA: No intra- or extra-axial hemorrhage. No evidence of acute infarct. No intracranial mass or mass effect. There is preservation of the rashid/white matter interface. Posterior fossa structures are unremarkable. Mild small vessel ischemic changes. CSF SPACES: Appropriate for age. No hydrocephalus. Basal cisterns are patent. CALVARIUM, SKULL BASE, PARANASAL SINUSES AND MASTOID AIR CELLS: Clear. No discrete lytic or blastic abnormalities. ASPECTS Score for Acute Strokes: 10 --CTA NECK: AORTIC ARCH AND BRANCHES: Normal anatomy, patent. RIGHT CCA: No occlusion, significant stenosis or dissection. RIGHT ICA: Moderate atherosclerotic disease at the origin with approximately 75% stenosis. The remainder of the vessel is patent. LEFT CCA: No occlusion, significant stenosis or dissection. LEFT ICA: No occlusion, significant stenosis or dissection. Mild atherosclerotic disease at the origin without flow-limiting stenosis. RIGHT VERTEBRAL ARTERY: No occlusion, significant stenosis or dissection. The right vertebral artery appears to originate from the common carotid artery. LEFT VERTEBRAL ARTERY: No occlusion, significant stenosis or dissection. NECK SOFT TISSUES: Degenerative changes of the spine. Disc spacer hardware at C4-C5 and C5-C6. The thyroid gland is unremarkable. The lung apices are clear. --CTA HEAD: --Anterior circulation: ICAs: No significant stenosis at the intracranial/visualized segments. ACAs: No significant stenosis at the visualized segments. ACOM: Present. MCAs: No significant stenosis at the visualized segments. --Posterior circulation: PCOMs: Diminutive. policy writer: No significant stenosis at the visualized segments. BASILAR ARTERY: No significant stenosis. VERTEBRAL ARTERIES: No significant stenosis at the intradural/visualized segments. The right vertebral artery is dominant. No evidence of intracranial aneurysm or vascular malformation. CT/CTA Head AND Neck W/ Contrast IMPRESSION: Approximately 75% stenosis of the right internal carotid artery origin. No large vessel occlusion. No acute intracranial finding. Electronically Signed: Elton Turcios MD at 12:56 EDT ,
== END | disposition home or self-care (01) ==
LOC: CT 13:20
PROVIDERS: PCP Internal Medicine; Referring Provider Physician Assistant; Visit Provider Physician Assistant
DX: I65.21 Occlusion and stenosis of right carotid artery (principal)
CPT/HCPCS: 70496; 70498; Q9967

== ENCOUNTER → 2024-07-11 | Outpatient (CLI) | payer MEDICARE, OTHER, SELFPAY ==
--- NOTE | 2024-07-11 12:27 | MRI_ITS ---
STUDY: MRI BRAIN WITHOUT CONTRAST REASON FOR EXAM: Female, 78 years old. UNSTEADY GAIT TECHNIQUE: Standardized multiplanar fat and water weighted pulse sequences were obtained. COMPARISON: Head CT dated June 06, 2024 FINDINGS: Normal size of the ventricles and extra-axial spaces for the patient''s age. There are multiple white matter hyperintensities, distributed throughout the deep white matter tracts of the cerebral hemispheres, consistent with mild to moderate chronic white matter ischemic changes. There is no evidence for recent intracranial ischemia or other cause of cytotoxic edema on diffusion weighted imaging (DWI). Normal T2* images of the brain without demonstrated susceptibility artifact. There is no demonstrated hemosiderin stain. There are no demyelinating plagues of the supratentorial brain, brainstem or cerebellum. There are no findings suspicious for multiple sclerosis (MS). Normal bilateral basal ganglia. Normal thalami. There is no extra-axial fluid accumulation. Normal flow voids within the major intracranial circulation suggesting patency by spin echo criteria. Normal sella turcica, pituitary gland, infundibular stalk, optic chiasm and hypothalamus. Normal tectal plate and pineal gland. Normal midbrain, dang and medulla. Normal cerebellum. Normal basal cisterns. Normal bilateral temporal bones. Normal bilateral internal auditory canals. No demonstrated orbital abnormality, within the constraints of a routine brain study. Normal visualized paranasal sinuses. Normal calvarium and skull base. Normal visualized soft tissue structures. Normal visualized upper cervical spine. Moderate to severe right otomastoiditis is present MRI/Brain without Contrast IMPRESSION: 1. Chronic ischemic changes of the brain, as described above. 2. No demonstrated acute infarct or intracranial hemorrhage 3. Moderate to severe right otomastoiditis is present Electronically Signed: Frankie Lucia MD at 15:42 EDT ,
--- NOTE | 2024-07-11 12:37 | MRI_ITS ---
STUDY: MRI LUMBAR SPINE WITHOUT CONTRAST REASON FOR EXAM: Female, 78 years old. multilevel degenerative disc disease, LBP TECHNIQUE: Standardized fat and water weighted pulse sequences were obtained in the sagittal and axial planes. COMPARISON: Lumbar spine series June 26, 2019 FINDINGS: T12-L1: Normal endplates. Normal disc height, hydration and morphology. Normal bilateral facet joints. Normal central canal and bilateral lateral recesses. Normal bilateral intervertebral neural foramina. Normal lumbar lordosis. There is no substantial scoliosis. Normal conus medullaris that terminates at T12-L1 L1-2: Normal endplates. Normal disc height, hydration and morphology. Normal bilateral facet joints. Normal central canal and bilateral lateral recesses. Normal bilateral intervertebral neural foramina. L2-3: Normal endplates. Normal disc height, desiccation mild annular bulge.. Facet arthropathy and thickening of ligamenta flava. Mild to moderate narrowing the central canal exaggerated by posterior epidural fat. Mild bilateral lateral recess stenosis and moderate neuroforaminal stenosis L3-4: Normal endplates. Normal disc height, desiccation and minimal annular bulge. Facet arthropathy and thickening of ligamenta flava.. Mildly narrowed central canal exaggerated by posterior epidural fat. Normal bilateral lateral recesses. Mild bilateral neural foraminal encroachment L4-5: Grade 1 spondylolisthesis Normal endplates. Normal disc height, desiccation and minimal bulging disc osteophyte complex. Facet arthropathy and thickening of ligamenta flava. Normal central canal and bilateral lateral recesses. Normal bilateral intervertebral neural foramina. L5-S1: Normal endplates. Normal disc height, hydration and morphology. Facet arthropathy and thickening of ligamenta flava.. Normal central canal and bilateral lateral recesses. Normal bilateral intervertebral neural foramina. Normal visualized sacral ala. Normal visualized paraspinous soft tissue structures. No significant change since prior exam given inherent differences in imaging modalities. MRI/Spine Lumbar (Routine) IMPRESSION: No acute fracture or other significant bony pathology Spinal stenosis at L2-3 and L3-4 secondary to bulging annuli and facet arthropathy with thickening of ligamenta flava. Other findings as above Electronically Signed: Andrew Quiroga MD at 16:57 EDT ,
== END | disposition home or self-care (01) ==
PROVIDERS: PCP Internal Medicine; Referring Provider Internal Medicine; Visit Provider Internal Medicine
DX: R26.81 Unsteadiness on feet (principal); M53.9 Dorsopathy, unspecified
CPT/HCPCS: 70551; 72148

== ENCOUNTER → 2024-07-16 | Outpatient (CLI) | payer MEDICARE, OTHER, SELFPAY ==
--- NOTE | 2024-07-16 11:30 | PET_ITS ---
EXAMINATION: FDG-PET/CT ? INDICATIONS: 78-year-old female with a history of pulmonary nodularity. ? COMPARISON EXAMINATION: Chest CT report dated 05/15/2024 and FDG-PET CT study dated 04/30/2018. ? INDEX LESION SIZE SUV INTERPRETATION Left mid anterior lung field, left upper lobe ? 1.5 max Quantitative criteria for viable neoplasm are not fulfilled, sequential radiologic investigation recommended ? TECHNIQUE: Following the intravenous administration of 13.22 mCi of F-18 deoxyglucose via the left hand, multiplanar image acquisitions of the head, neck, chest, abdomen and pelvis to the level of the midthigh, obtained at one-hour post radiopharmaceutical administration contemporaneously interpreted with the current CT of the chest, abdomen and pelvis dated 07/16/[address] chest report dated 05/15/2024 and FDG-PET CT study dated 04/30/2018 via coregistration reveal: ? SERUM GLUCOSE LEVEL:? 100 mg/dL? HEIGHT:?? 61 inches WEIGHT:?? 162 pounds ? FINDINGS: ? HEAD/NECK:? There is no evidence of abnormal increased glucose metabolism in the pharyngeal mucosal space, parapharyngeal space, oropharynx, bilateral-lateral and anterior neck, hypopharynx and distribution of the larynx. ? The visualized portion of the cerebral cortical-subcortical structures demonstrate symmetric and preserved glucose metabolism. ? CHEST:? Facilitated uptake is noted in the left mid anterior lung field, left upper lobe generating a calculated standard uptake value of 1.5. Quantitative criteria for viable neoplasm are not fulfilled. ? CT of the chest demonstrates the following anatomic characteristics: Atherosclerotic calcification is defined in the thoracic aorta without evidence of dilatation, aneurysm formation. Bilateral axillary soft tissue densities with fatty hilus, subcentimeter in presentation, are ametabolic. Coronary artery calcification is observed. ? ABDOMEN/PELVIS:? Normal physiologic distribution of the radiopharmaceutical is identified in the hepatic (3.0) and splenic parenchyma, both renal units, urinary bladder, and visualized intestinal tract. Diffuse intestinal tract is identified in all four quadrants of the abdominal-pelvic mesentery. ? CT of the abdomen and pelvis is remarkable for the following: Cholelithiasis is defined. Atherosclerotic calcification is defined in the abdominal aorta without evidence of dilatation, aneurysm formation. Pelvic arterial calcification is observed. Calcified phlebolith formation is noted in the bilateral lower hemipelvis. ? SKELETAL:? There is no evidence of quantitatively significant enhanced glucose metabolism on meticulous inspection of the appendicular and axial skeletal structures. ? Degenerative changes defined in the thoracic and lumbar spine demonstrate no evidence of increased glucose metabolism. There are no sclerotic, mixed sclerotic-lytic, or primarily lytic changes defined in the axial skeletal structures with evidence of increased FDG uptake. ? PET/PET/CT Tumor Base -Thigh Init IMPRESSION: 1. NEGATIVE EXAMINATION. There is no definitive quantitative scintigraphic evidence of viable neoplasm. 2. Mild increased tracer uptake noted in the left mid anterior lung field, left upper lobe does not fulfill quantitative criteria for viable neoplasia. (Álvarez et al, Journal of Nuclear Medicine, 32:1, 1991). 3. Anatomic stability may be ensured with repeat FDG-PET CT of the thorax in 3-6 months if clinically indicated. (Kamilla, Seminars in Thoracic and Cardiovascular surgery, 14:292, 2002). 4. Overall, compared to the prior FDG-PET CT study dated 04/30/2018, there is current absence of defined viable neoplastic disease. Electronic Signature Blane Monzon D.O. Accurate Quantification of SUVs for this report are calculated using the exclusive [employer] Technology. (U.S. Patent No. [phone] [id number] 983 B2 [phone] [place] patent [id number] [id number] [id number]). Standardization and correction of the FDG SUV metric via [employer] technology allow for vendor non-specific objective quantitative examination comparison and optimization of the sensitivity and specificity of the FDG PET-CT examination. [email or web address] Electronically Signed: Blane Monzon DO at 22:29 EDT ,
== END | disposition home or self-care (01) ==
LOC: ONC 11:19
PROVIDERS: PCP Internal Medicine; Referring Provider Internal Medicine Critical Care Medicine; Visit Provider Internal Medicine Critical Care Medicine
DX: R91.1 Solitary pulmonary nodule (principal)
CPT/HCPCS: 78815; A9552

== ENCOUNTER 2024-08-12 14:47 | Inpatient (IN) | payer MEDICARE, OTHER, SELFPAY ==
[2024-08-12] VITALS (22 sets, daily range): BP systolic 109–145; BP diastolic 45–64; PULSE 60–74; RESP 12–20; TEMP 36.1–36.8; O2SAT 93–100; BMI 31.6; BMI 32.8
--- NOTE | 2024-08-12 09:15 | PCM.PRE.AN2 ---
ASA Classification* ASA Classification ASA Classification: 3 Assessment & Plan Anesthesia* Anesthesia Assessment Anesthesia Assessment: Discussed sedation and/or anesthesia options, risks, benefits, and alternatives with patient/parents/legal guardian/POA. Questions invited. The patient/parents/legal guardian/POA seems to understand and agrees to proceed with anesthesia plan. Reviewed the physical assessment, medical history, allergy history and patient home medications list prior to surgery/procedure/anesthetic and documented any changes. Performed airway and anesthesia risk assessments. Anesthesia Type Anesthesia Type: General ([place]) Anesthesia Focused Assessment* Airway Assessment Mouth opens: >3 cm Mallampati Score: II Focused Labs Anesthesia Preop lab: CBC WBC 13.1 K/mm3 (4.4-11.0) H 06/29/23 05:55 RBC 3.59 M/mm3 (4.2-5.4) L 06/29/23 05:55 Hgb 12.3 g/dL (12.0-15.0) 06/29/23 05:55 Hct 36.4 % (37-47) L 06/29/23 05:55 Plt Count 190 K/mm3 (150-450) 06/29/23 05:55 CHEMISTRY Potassium 4.0 mmol/L (3.5-5.1) 06/29/23 05:55 Sodium 141 mmol/L (136-145) 06/29/23 05:55 Magnesium 2.3 mg/dL (1.6-2.6) 05/31/23 12:41 BUN 16 mg/dL (7-18) 06/29/23 05:55 Creatinine 0.76 mg/dL (0.55-1.02) 06/29/23 05:55 Glucose 131 mg/dL (74-106) H 06/29/23 05:55 POC Glucose 112 mg/dL (74-106) H 06/28/23 07:10 TSH 1.80 uIU/mL (0.358-3.74) 07/23/20 09:10 COAG Pre-Assessment Diagnosis/Proposed Procedure Planned Operative Procedure(s): RIGHT CAROTID ENDARTERECTOMY Anesthesia History 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 When Was Last Pacemaker Check QUESTION #4 FULL TEXT: You/Your Family Experience fever (hyperthermia) with Anesthesia Last Oral Intake Last Oral intake: Last Oral Intake NPO since Meds taken in AM with sips of water? 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 Has anyone observed you stop No 07/29/24 09:23 breathing during sleep? STOP Results Negative 07/29/24 09:23 QUESTION #5 FULL TEXT : Do you snore loudly (louder than talking or can be heard through closed doors)? 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 Specify any problems Hx of Preganancy in last 3 No 07/29/24 09:23 Months Nurse Filling Out Transfusion DSCHRIBER 07/29/24 09:23 & Questions: Date: 07/29/24 07/29/24 09:23 Time: 07/29/24 09:23 Patient unable to answer at this time (ie. 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 operator Hx Now No 07/29/24 09:23 Gestational Age (in weeks): EDC: Hx Hx Para Hx Section SAB No 07/29/24 09:23 Active Medications Active Medications: Current Medications Generic Name Dose Route Start Last Admin Trade Name Freq PRN Reason Stop Dose Admin Clindamycin Phosphate 900 mg in 50 mls @ 75 mls/hr 08/12/24 11:00 Cleocin IV 08/12/24 11:39 PREOP ONE PFSH Medical History Easy bruising History of pain when walking History of echocardiogram Vega neuroma PONV (postoperative nausea and vomiting) Wears partial dentures Post-menopausal Cancer High cholesterol Gastric reflux Non-smoker Hx of bladder cancer Personal history of colonic polyps Globus sensation Esophageal dysphagia Carotid stenosis, bilateral knee pain Arthritis HTN (hypertension) Home Medications ?Medication ?Instructions ?Recorded ?Last Taken ?Type metoprolol succinate 25 mg 25 mg PO QHS BP 08/10/20 06/27/23 History tablet,extended release 24 hr pantoprazole 40 mg tablet,delayed 40 mg PO DAILY GERD 09/08/20 06/28/23 History release gabapentin 300 mg capsule 300 mg PO TID NERVE PAIN 02/07/23 01/05/24 History cholecalciferol (vitamin D3) 50 5,000 unit PO DAILY SUPPLEMENT 04/05/23 Unknown History mcg (2,000 unit) capsule (Vitamin D3) losartan 100 1 tab PO DAILY BP 04/05/23 Unknown History mg-hydrochlorothiazide 25 mg tablet magnesium 250 mg tablet 250 mg PO DAILY SUPPLEMENT 04/05/23 01/05/24 History aspirin 81 mg chewable tablet 81 mg PO QODAY HEART 01/03/24 Unknown History rosuvastatin 20 mg tablet 20 mg PO DAILY CHOLESTEROL. 05/22/24 Unknown History METANZ 1 cap PO BID SUPPLEMENT 07/29/24 Unknown History Allergy/AdvReac Type Severity Reaction Status Date / Time clavulanic acid (From Allergy Mild GI upset Verified 07/29/24 09:17 Augmentin) adhesive tape (tape) Allergy Bleeding Verified 07/29/24 09:17 amoxicillin (From Augmentin) AdvReac Mild GI upset Verified 07/29/24 09:17 ciprofloxacin (From Cipro) AdvReac Mild Diarrhea Verified 07/29/24 09:17 levofloxacin (From Levaquin) AdvReac Mild gi upset Verified 07/29/24 09:17 doxycycline AdvReac Upset Verified 07/29/24 09:17 Stomach Family History Father Parkinson disease Carotid stenosis, bilateral Grandfather CVA (cerebral vascular accident) Grandmother Cancer lung Surgical History Hx of surgical procedure History of total knee replacement Status post total right knee replacement History of bladder surgery Hx of cervical discectomy Hx of colonoscopy History of cataract extraction History of esophagogastroduodenoscopy (EGD) Status post debridement of bone spur History of hysterectomy History of tonsillectomy Social History Smoking Status: Never smoker alcohol intake: never Review of Systems (Anesthesia) ROS Narrative System reviewed and no additional complaints, except as documented.
[2024-08-12] MEDS: Lactated Ringers 1,000 ML 15 ML IV (09:52)
[2024-08-12 10:00] LABS: Partial Thromboplast Time 28.7 Seconds (24.1-36.2)
--- NOTE | 2024-08-12 11:00 | PLAQ_PTH ---
PATIENT: SACHIN LYNN LOC: ICU U#:[id number] AGE/SX: 78/F ROOM: [place] [address] RE08/12/[address]: Dr. Ronni Rae MD : 1945 BED: 1 DIS: 08/13/2024 SPEC #: [id number] RECD: 08/13/24 10:11 STATUS: RONALD CYNTHIA #: [id number] BRISEIDA: 08/12/24 11:[address]: Ronni Rae DEPT: SURGICAL PATHOLOGY RECD BY: Sadie Arango ENTERED: 08/13/24 11:14 SP TYPE: PLAQUE OTHR DR: Dr. Sade Ocampo MD Tissues: PLAQUE Procedures: Decalcification bone/plaque Surgery Specimen Level III HEADER OPERATION: Right carotid endarterectomy PRE-OP DIAGNOSIS: Stenosis of right carotid artery greater than 50% TISSUE SUBMITTED: Plaque, right carotid MICROSCOPIC DIAGNOSIS Plaque right carotid, endarterectomy: Atherosclerotic tissue with moderate to marked calcifications (plaque). 08/16/2024 GROSS DESCRIPTION Received in fixative is one container labeled with the patient's name and designated Plaque, right carotid. The specimen consists of a tubular piece of solo indurated tissue that has been previously opened measuring 2.0cm in length and 1.0cm in diameter. The specimen cuts focally with a gritty sensation. Also present in the container are two pieces of solo-yellow indurated tissue measuring in aggregate 1.0 x 0.3 x 0.1cm. The entire specimen is submitted in one cassette after decalcification. 08/13/2024 TC:5 CPT:02446,37428
--- NOTE | 2024-08-12 11:34 | HP.PCM_ITS ---
HPI - General General Date of Admission: 08/12/24 HPI Narrative SACHIN LYNN, is a 78 F who presents with asymptomatic right carotid stenosis >70%. [facility] Medical History Easy bruising History of pain when walking History of echocardiogram Vega neuroma PONV (postoperative nausea and vomiting) Wears partial dentures Post-menopausal Cancer High cholesterol Gastric reflux Non-smoker Hx of bladder cancer Personal history of colonic polyps Globus sensation Esophageal dysphagia Carotid stenosis, bilateral knee pain Arthritis HTN (hypertension) Home Medications ?Medication ?Instructions ?Recorded ?Last Taken ?Type metoprolol succinate 25 mg 25 mg PO QHS BP 08/10/20 08/11/24 History tablet,extended release 24 hr pantoprazole 40 mg tablet,delayed 40 mg PO DAILY GERD 09/08/20 08/12/24 History release gabapentin 300 mg capsule 300 mg PO TID NERVE PAIN 02/07/23 08/12/24 07:30 History cholecalciferol (vitamin D3) 50 5,000 unit PO DAILY SUPPLEMENT 04/05/23 07/29/24 History mcg (2,000 unit) capsule (Vitamin D3) losartan 100 1 tab PO DAILY BP 04/05/23 08/11/24 History mg-hydrochlorothiazide 25 mg tablet magnesium 250 mg tablet 250 mg PO DAILY SUPPLEMENT 04/05/23 08/11/24 History aspirin 81 mg chewable tablet 81 mg PO QODAY HEART 01/03/24 08/05/24 History rosuvastatin 20 mg tablet 20 mg PO DAILY CHOLESTEROL. 05/22/24 08/11/24 History METANZ 1 cap PO BID SUPPLEMENT 07/29/24 08/11/24 History cyclobenzaprine 10 mg tablet 10 mg PO TID PRN muscle pain 08/12/24 08/11/24 History Allergy/AdvReac Type Severity Reaction Status Date / Time clavulanic acid (From Allergy Mild GI upset Verified 08/12/24 09:55 Augmentin) adhesive tape (tape) Allergy Bleeding Verified 08/12/24 09:55 amoxicillin (From Augmentin) AdvReac Mild GI upset Verified 08/12/24 09:55 ciprofloxacin (From Cipro) AdvReac Mild Diarrhea Verified 08/12/24 09:55 levofloxacin (From Levaquin) AdvReac Mild gi upset Verified 08/12/24 09:55 doxycycline AdvReac Upset Verified 08/12/24 09:55 Stomach Family History Father Parkinson disease Carotid stenosis, bilateral Grandfather CVA (cerebral vascular accident) Grandmother Cancer lung Surgical History Hx of surgical procedure History of total knee replacement Status post total right knee replacement History of bladder surgery Hx of cervical discectomy Hx of colonoscopy History of cataract extraction History of esophagogastroduodenoscopy (EGD) Status post debridement of bone spur History of hysterectomy History of tonsillectomy Social History Smoking Status: Never smoker alcohol intake: never ROS Constitutional Constitutional: Denies chills, fever(s), frequent falls, lethargy or weakness Eyes Eyes: Denies blind spots, change in vision or loss of vision ENT HEENT: Denies bleeding gums, hoarseness or sore throat Cardiovascular Cardiovascular: Denies abdominal pain, bluish discoloration of hand/feet, chest pain with activity, claudication, cold extremities, cyanosis, dyspnea on exertion, erythema on extremities, irregular heart rhythm, leg edema, leg ulcer s, numbness in extremities or weakness in extremities Respiratory/Chest Respiratory/Chest: Denies cough, excessive phlegm production, shortness of monserrat th at rest, shortness of breath with exertion or wheezing Gastrointestinal Gastrointestinal: Denies anorexia, change in stool character, constipation, diarrhea, melena or rectal bleeding Genitourinary Genitourinary: Denies dysuria or hematuria Musculoskeletal Musculoskeletal: Denies abnormal gait Integumentary Integumentary: Reports other Details: ; Denies erythema, non-healing lesions or wounds Neurologic Neurologic: Denies abnormal speech, focal weakness, headache(s), loss of vision, numbness, paresthesias or sensory deficit Hematologic/Lymphatic Hematologic/Lymphatic: Denies easy bleeding, easy bruising or lymphadenopathy Vital Signs Vital Signs Vital Signs: 08/12/24 10:03 08/12/24 10:03 Temperature 98 F Temperature Source Temporal Pulse Rate 67 Respiratory Rate 12 Respiratory Pattern Normal Blood Pressure 137/64 H Blood Pressure Mean 88 Blood Pressure Source Monitor Blood Pressure Position Semi-Fowlers Blood Pressure Location Left Arm Pulse Ox 99 Oxygen Delivery Method Room Air Weight Weight: 167 lb 5.294 oz Body Mass Index (BMI) 31.6 Physical Exam Const alert, oriented x3, no apparent distress and healthy appearing General Appearance: cooperative; Negative for combative or lethargic Orientation / Consciousness: awake Exam Limitations: no limitations HEENT Head and Scalp: normocephalic and atraumatic Eyes EOMs intact bilaterally General Eye: normal appearance of both eyes Neck full ROM General: trachea midline Resp normal respiratory effort and no use of accessory muscles Effort and Inspection: Negative for labored, stridor or audible wheezes Cardio regular rate and regular rhythm Back/Spine Cervical Spine: cervical ROM normal Extremity full ROM, normal capillary refill and no clubbing, cyanosis or edema Skin no rashes or lesions noted and no wounds Neuro oriented x3, CN's II-XII intact bilaterally, no focal motor deficits and no sensory deficits noted Psych thought process normal, cooperative, affect normal, speech normal and acti vity/motor behavior normal Results Lab / Micro Data Labs: Laboratory Results - last 24 hr 08/12/24 09:40: PT 13.0, INR 1.0, APTT 28.7 Assessment & Plan Assessment/Plan (1) Stenosis of right carotid artery greater than 50%: PLAN: -right CEA
[2024-08-12] MEDS: Clindamycin 900 MG/50 ML BAG 75 MG IV (11:51)
[2024-08-12] MEDS: Heparin Injection (Vial) 5,000 UNIT/ML VIAL 5000 UNIT (12:56)
--- NOTE | 2024-08-12 14:53 | PCM.OPRPT ---
Report of Operation Date of Procedure: 08/12/24 Pre-Operative Diagnosis: right carotid stenosis Post-Operative Diagnosis: same Surgery/Procedure Performed:: right carotid endarterectomy Surgeon: Ronni Rae manager product support: Moses Ross Type of Anesthesia: General Drains: 15 Fr RAMIRO Estimated Blood Loss (mL): 15 Description of Procedure: HPI: Patient is a 70-year-old female with severe carotid artery stenosis which is asymptomatic in nature. She is taken now for elective endarterectomy for stroke prevention. Description of procedure: Upon obtaining informed consent and verification correct patient procedure site patient was taken to the operating where she was placed under general anesthesia. She was then positioned prepped and draped in usual sterile fashion and timeout was performed. Oblique incision was made along the anterior border the sternocleidomastoid and Bovie electrocautery was dissect down through subcutaneous tissue. The platysma was then divided and self-retaining retractors were put in position with further dissection and carried down to the sternocleidomastoid. This was then freed along its anterior border allowed to be retracted posterior laterally exposing the jugular vein. Sharp dissection was then used to dissect free the jugular vein with the facial vein identified, ligated with silk ties, and divided. The jugular vein was then retracted laterally exposing the carotid vessels and sharp dissection was dissect free the proximal common carotid artery. Writing was used to place a vessel loop on the proximal vessel with care taken to identify protect the vagus nerve. We then carried our dissection distally onto the internal carotid artery beyond any palpable and visible plaque with care taken to identify and protect the hypoglossal nerve. A writing was replaced vessel loop on the internal carotid artery distally and the patient was in heparinized circuit for 3 minutes. During this time we then dissected free the external carotid artery and a writing was replaced vessel loop. Vessels then occluded first the internal followed by the common and external carotid. Longitudinal arteriotomy was created with 11 blade and extended Sosa scissors onto the internal carotid artery beyond the plaque. A 10 [place] shunt was then placed first distally in the internal carotid artery then allowed to backbleed before placing proximally in the common carotid artery. The shunt was then interrogated with Doppler found a patent low resistance signal. We then performed her endarterectomy with a freer elevator with eversion endarterectomy of the external carotid artery and satisfactory endpoint on the internal carotid artery. We then tacked the distal endpoint with 7-0 Prolene interrupted sutures and flushed the lumen with heparinized saline clear of any potential debris. A bovine pericardial patch was then secured in position using a 6-0 Prolene running fashion. Prior to completing suture line the shunt was removed and the vessel was backbled. After completing suture line the internal carotid artery was allowed to backbleed and then reoccluded as origin before releasing clamps from the external and common carotid arteries. 10 heartbeats of antegrade flow were allowed to flush into the external carotid artery before reestablishing flow into the internal carotid artery. The incision was then inspected for hemostasis and the vessel was interrogated with Doppler. Internal carotid arteries patent low resistance signal in the external carotid arteries patent with appropriate signal. Heparin was then reversed with protamine and a 15 [place] channel RAMIRO was placed via separate stab incision. The incision was then inspected for hemostasis and closed with 2-0 Vicryl, 3-0 Vicryl, 4 Monocryl and Dermabond for the skin. At the conclusion the case the patient was awake from anesthesia moving all extremities to command with cranial nerves intact. She was then taken to recovery room with anticipated mission to the intensive care unit for hemodynamic and neurologic monitoring. The 411 directory assistance operator was involved in positioning and prepping the patient, the dissection down to the vessel and vessel control, performance of the endarterectomy and patch angioplasty, obtaining hemostasis, wound closure.
[2024-08-12] MEDS: Bupivacaine Mpf 0.5% 30 ML VIAL (14:54)
--- NOTE | 2024-08-12 15:27 | PCM.POST.ANE ---
Anesthesia: Postop Eval I Current Vital Signs Temperature: 97.6 F Pulse Rate: 72 Blood Pressure: 115/47 Respiratory Rate: 18 Pulse Ox: 93 Oxygen Delivery Method: Nasal Cannula Oxygen Flow Rate (L/min): 3 Assessment Airway patent: Yes Spontaneous unlabored respirations: Yes nausea: No Vomiting: No Anesthesia Complication: No Fluid Hydration Crystalloid volume administer (ml): 1,800 Total IV fluid infused: 1,800 Progress Note Anesthesia document: Postop Eval 1 completed: Yes
--- NOTE | 2024-08-12 16:58 | POSTOPAN2_ITS ---
Anesthesia Postop Eval I Sum Postop Eval Completion status Anesthesia document: Postop Eval 1 completed: Yes Anesthesia Postop Eval I Summary Anesthesia Postop Eval I Summary: Anesthesia Postop Eval I: Assessment Summary Airway patent Yes 08/12/24 15:28 [email or web address] Spontaneous unlabored Yes 08/12/24 15:28 [email or web address] respirations Mental status nausea No 08/12/24 15:28 [email or web address] Vomiting No 08/12/24 15:28 [email or web address] Anesthesia Postop Eval I: Fluid Summary Crystalloid volume administer 1,800 08/12/24 15:28 [email or web address] (ml) Colloids volume administered ( ml) Blood Product volume administered (ml) Total IV fluid infused 1,800 08/12/24 15:28 [email or web address] Anesthesia Postop Eval I: Summary Notes Anesthesia Complication No 08/12/24 15:28 [email or web address] Anesthesia Complication Comment: Post-operative progress note Anesthesia: Postop Eval II Evaluation Mental status: Awake and Calm Pain Level: 1 nausea: No Vomiting: No Complications Anesthesia Complication: No
--- NOTE | 2024-08-12 16:58 | PCM.POSTANE2 ---
Anesthesia Postop Eval I Sum Postop Eval Completion status Anesthesia document: Postop Eval 1 completed: Yes Anesthesia Postop Eval I Summary Anesthesia Postop Eval I Summary: Anesthesia Postop Eval I: Assessment Summary Airway patent Yes 08/12/24 15:28 [email or web address] Spontaneous unlabored Yes 08/12/24 15:28 [email or web address] respirations Mental status nausea No 08/12/24 15:28 [email or web address] Vomiting No 08/12/24 15:28 [email or web address] Anesthesia Postop Eval I: Fluid Summary Crystalloid volume administer 1,800 08/12/24 15:28 [email or web address] (ml) Colloids volume administered ( ml) Blood Product volume administered (ml) Total IV fluid infused 1,800 08/12/24 15:28 [email or web address] Anesthesia Postop Eval I: Summary Notes Anesthesia Complication No 08/12/24 15:28 [email or web address] Anesthesia Complication Comment: Post-operative progress note Anesthesia: Postop Eval II Evaluation Mental status: Awake and Calm Pain Level: 1 nausea: No Vomiting: No Complications Anesthesia Complication: No
[2024-08-12] MEDS: 0.9% Saline Lock 10 ML Syringe IV (17:14)
[2024-08-12] MEDS: Ondansetron 4 MG/2 ML Vial IV (17:14)
[2024-08-12] MEDS: cycloBENZAPRine HCl 10 MG Tablet PO (17:41)
[2024-08-12] MEDS: Gabapentin 300 MG Capsule PO (20:50)
[2024-08-12] MEDS: Metoprolol(XL)Succ 25 MG Tablet PO (20:51)
[2024-08-12] MEDS: Acetaminophen 500 MG Tablet 1000 MG PO (20:51)
[2024-08-12] MEDS: Atorvastatin Calcium 40 MG Tablet PO (20:51)
[2024-08-12] MEDS: Clindamycin 600 MG/50 ML BAG 100 MG IV (20:52)
[2024-08-13] VITALS (17 sets, daily range): BP systolic 77–132; BP diastolic 39–107; PULSE 63–79; RESP 14–19; TEMP 36.2–36.3; O2SAT 93–98; BMI 32.3
[2024-08-13] MEDS: Gabapentin 300 MG Capsule PO ×2 (05:54→13:24)
[2024-08-13] MEDS: Acetaminophen 500 MG Tablet 1000 MG PO ×2 (05:54→13:24)
[2024-08-13] MEDS: 0.9% Saline Lock 10 ML Syringe IV (05:54)
[2024-08-13] MEDS: Clindamycin 600 MG/50 ML BAG 100 MG IV (05:55)
[2024-08-13 06:29] LABS: Absolute Lymphocyte Count 0.72 X10^3/uL (0.83-4.51); Basophil# 0.01 X10^3/uL; Basophil% 0.1 % (0-1); Hematocrit 34.3 % (37-47); Hemoglobin 12.1 g/dL (12.0-15.0); Lymphocyte # 0.72 X10^3/ul (0.83-4.51); Lymphocyte % 10.2 % (19-41); Mean Corp Hgb Conc 35.3 g/dL (32-36); Mean Corpuscular Hgb 34.6 pg (27.0-32.0); Mean Platelet Vol. 10.4 fl (6.2-12.0); Monocyte# 0.31 X10^3/uL; Monocyte% 4.4 % (0-10); NRBC Flagged by Analyzer 0 % (0-5); Neutrophil # 5.96 X10^3/uL (2.7-7.7); Neutrophil % 84.9 % (47-70); Platelet Count 171 K/mm3 (150-450); RBC Distribution Width SD 46.1 fl (35.1-43.9)
--- NOTE | 2024-08-13 08:12 | PCM.PN.SRG ---
Subjective Subjective Danyelle was seen resting comfortably in bed this morning. She denies any pain at the incision site. She denies any weakness, numbness/paresthesias, hoarseness, difficulty swallowing. Her blood pressures have been on the lower side, but overall stable and she is asymptomatic with this. She has been voiding without difficulty. She is tolerating liquids. Small amount of serosanguineous output from the RAMIRO drain. Objective Data Objective Data Vital Signs: Vital Signs Temp Pulse Resp BP Pulse Ox O2 Del Method O2 Flow Rate 97.2 F L 71 17 106/45 L 96 Room Air 2 08/13/24 04:00 08/13/24 07:00 08/13/24 07:00 08/13/24 07:00 08/13/24 07:00 08/13/24 07:00 08/12/24 16:18 Oxygen Flow Rate (L/min) 2 Oxygen Delivery Method Room Air Weight: 170 lb 13.732 oz Body Mass Index (BMI) 32.3 Intake & Output: Intake and Output for Last 24 Hours 08/11/24 08/12/24 08/13/24 23:59 23:59 23:59 Intake Total 273 / 633 410 / 410 Output Total 10 / 410 775 / 775 Balance 263 / 223 -365 / -365 Lab / Micro Data 08/13/24 05:55 Labs: Laboratory Results - last 24 hr 08/12/24 09:40: PT 13.0, INR 1.0, APTT 28.7 08/13/24 05:55: WBC 7.0, RBC 3.50 L, Hgb 12.1, Hct 34.3 L, MCV 98.0, MCH 34.6 H, MCHC 35.3, RDW Std Deviation 46.1 H, RDW Coeff of Lacho 13.0, Plt Count 171, MPV 10.4, Immature Gran % (Auto) 0.400, Neut % (Auto) 84.9 H, Lymph % (Auto) 10.2 L, [place] % (Auto) 4.4, Eos % (Auto) 0.0, Baso % (Auto) 0.1, Absolute Neuts (auto) 6.0, Absolute Lymphs (auto) 0.72 L, Nucleated RBC % 0 Physical Exam Const oriented x3 and no apparent distress HEENT normocephalic, head/scalp atraumatic, hearing grossly normal bilaterally, external ears normal and external nose normal Eyes General Eye: normal appearance of both eyes Neck Neck Narrative: R neck incision with surgical glue intact, no dehiscence/drainage/erythema. Mild swelling. Soft and nontender to palpation. RAMIRO drain with minimal serosanguineous output. General: trachea midline Resp normal respiratory effort Cardio regular rate and regular rhythm Extremity no clubbing, cyanosis or edema Skin no rashes or lesions noted Neuro oriented x3, CN's II-XII intact bilaterally, moves all extremities, no focal motor deficits and no sensory deficits noted Speech: speech normal Psych mental status grossly normal Appearance: grossly normal Attitude: calm and engaged Activity / Motor Behavior: appropriate eye contact Speech: normal speech Mood & Affect: euthymic mood Judgement: judgement good Assessment & Plan Assessment/Plan (1) Stenosis of right carotid artery greater than 50%: PLAN: She is POD#1 s/p R CEA. RAMIRO drain removed without issue. Incision site satisfactory in appearance, no evidence of hematoma. BPs have been stable but slightly hypotensive. OK to d/c art line. Will hold her home losartan-HCTZ today. Normal diet today. Will have her ambulate with nursing. As long as she does well with this anticipate discharge this afternoon.
[2024-08-13] MEDS: Enoxaparin 40 MG/0.4 ML Syringe SC (08:39)
[2024-08-13] MEDS: Aspirin 81 MG TAB.CHEW PO (08:39)
[2024-08-13] MEDS: Pantoprazole Sodium 40 MG Tablet PO (08:40)
[2024-08-13] MEDS: Magnesium Chloride 64 MG Delay Rel.Tablet 128 MG PO (08:40)
--- NOTE | 2024-08-13 09:29 | CASEMGMT ---
RORY MORATAYA Assessment Face to Face with patient for initial transition planning/care coordination assessment. RORY MORATAYA introduced self and role at [facility], pt voices understanding. Pt is A&Ox4 and is resting comfortably in bed and is calm. Care providers, pharmacy, and demographics verified. Admitting dx: Rt carotid Enderterectomy LACE Strata: 2 PCP: Sade Ocampo Specialists: Juan Jose (Uro), Janette (Ortho) Preferred Pharmacy: [facility] Insurance: [facility] [place] A/B, [employer] Supplement Prescription Benefit: Yes LNOK: Hossein Stephenson (H) Living Arrangements: Pt lives with her in a single story home with one step to enter ADLs/IADLs: Ind Transportation: Self, DME: Canes, Grab bars, w/c, FWW, walk in shower with a shower chair HHC/SNF: Denies Hx or needs. Pt has a hx at [facility] for OP Tx Pt?s goal: Home Plan: Home with pt . 6-click = 22. Pt denies the need for HHC, OP Tx, CCN or Pt Link. Pt states that she feels safe returning home with her once she is medically ready and denies further questions or concerns at this time. Apolinar De Jesus RN, CM
--- NOTE | 2024-08-13 16:39 | PCM.DC.SUM ---
Providers Date of Admission: 08/12/24 Primary Care Physician: Dr. Sade Ocampo MD Reason For Visit: right Carotid Endarterectomy Diagnosis Discharge Diagnosis (1) Stenosis of right carotid artery greater than 50%: Status: Acute Code(s): I65.21 - Occlusion and stenosis of right carotid artery Plan: She is POD#1 s/p R CEA. RAMIRO drain removed without issue. Incision site satisfactory in appearance, no evidence of hematoma. BPs have been stable but slightly hypotensive. OK to d/c art line. Will hold her home losartan-HCTZ today. Normal diet today. Will have her ambulate with nursing. As long as she does well with this anticipate discharge this afternoon. Medications at Discharge Home Medications metoprolol succinate 25 mg tablet,extended release 24 hr 25 mg PO QHS BP 08/10/20 pantoprazole 40 mg tablet,delayed release 40 mg PO DAILY GERD 09/08/20 gabapentin 300 mg capsule 300 mg PO TID NERVE PAIN 02/07/23 cholecalciferol (vitamin D3) 50 mcg (2,000 unit) capsule (Vitamin D3) 5,000 unit PO DAILY SUPPLEMENT 04/05/23 losartan 100 mg-hydrochlorothiazide 25 mg tablet 1 tab PO DAILY BP 04/05/23 magnesium 250 mg tablet 250 mg PO DAILY SUPPLEMENT 04/05/23 aspirin 81 mg chewable tablet 81 mg PO QODAY HEART 01/03/24 rosuvastatin 20 mg tablet 20 mg PO DAILY CHOLESTEROL. 05/22/24 METANZ 1 cap PO BID SUPPLEMENT 07/29/24 cyclobenzaprine 10 mg tablet 10 mg PO TID PRN muscle pain 08/12/24 Hospital Course Summary of Care Provided Hospital Course: León Stephenson is a 78-year-old female who underwent right carotid endarterectomy on 08/12/2024. The procedure was without complication and she tolerated it well. Postoperatively, she was routinely admitted to the ICU for hemodynamic and neurologic monitoring. She has remained neurologically stable throughout her admission without any new or worsening facial droop, dysarthria, dysphagia, hoarseness, unilateral weakness or sensory deficit, vision changes. She was somewhat hypotensive following surgery but this has been stable she has overall been asymptomatic with only intermittent lightheadedness that has improved through the day. Hemoglobin has been stable. Incision site is satisfactory in appearance without any evidence of hematoma. RAMIRO drain was removed today 08/13 without issue. She has been tolerating a normal diet, voiding without difficulty, and has no significant pain. Her antihypertensive medications will be held at discharge and she is instructed to monitor her blood pressures daily and restart these if her systolic blood pressures are consistently greater than 140. She is discharged today to home where she has her and family to support. Physical Exam Const oriented x3 and no apparent distress HEENT normocephalic, head/scalp atraumatic, hearing grossly normal bilaterally, external ears normal and external nose normal Eyes General Eye: normal appearance of both eyes Neck Neck Narrative: R neck incision with surgical glue intact, no dehiscence/drainage/erythema. Mild swelling. Soft and nontender to palpation. RAMIRO drain with minimal serosanguineous output. General: trachea midline Resp normal respiratory effort Cardio regular rate and regular rhythm Extremity no clubbing, cyanosis or edema Skin no rashes or lesions noted Neuro oriented x3, CN's II-XII intact bilaterally, moves all extremities, no focal motor deficits and no sensory deficits noted Speech: speech normal Psych mental status grossly normal Appearance: grossly normal Attitude: calm and engaged Activity / Motor Behavior: appropriate eye contact Speech: normal speech Mood & Affect: euthymic mood Judgement: judgement good Weight / BMI Weight Weight: 170 lb 13.732 oz Body Mass Index (BMI) 32.3 ABG / Lab / Microbiology Data 08/13/24 05:55 Laboratory: Laboratory Results - last 24 hr 08/13/24 05:55: WBC 7.0, RBC 3.50 L, Hgb 12.1, Hct 34.3 L, MCV 98.0, MCH 34.6 H, MCHC 35.3, RDW Std Deviation 46.1 H, RDW Coeff of Lacho 13.0, Plt Count 171, MPV 10.4, Immature Gran % (Auto) 0.400, Neut % (Auto) 84.9 H, Lymph % (Auto) 10.2 L, [place] % (Auto) 4.4, Eos % (Auto) 0.0, Baso % (Auto) 0.1, Absolute Neuts (auto) 6.0, Absolute Lymphs (auto) 0.72 L, Nucleated RBC % 0 D/C Instructions Discharge Diet: No restrictions May shower in (days): 1 Weight Bearing Status: Weight bearing as tolerated Lifting Restricted to (Lbs): 20 Lifting Restrictions: Do not lift greater than 20 pounds for 3 weeks Call your doctor if your incision/area has: Sudden Increased Bleeding, Increased Pain/ Swelling and Foul Smelling Discharge Call your doctor if you observe: Fever of 101 or Higher and Uncontrolled pain Remove Dressing in: 1 day Additional Instructions: You have a small bandage over the site from which the surgical drain was removed. You may remove this bandage tomorrow after your shower. As long as there is no residual drainage, you may leave this open to air. If you do notice some continued drainage, you may re-cover with a Band-Aid. Your incision site is covered with surgical glue which will continue to protect it. The surgical glue will peel/flake off on its own over the next few weeks. Please do not pick at it. You may shower tomorrow. It is okay for soap and water to rinse over the incision site, pat to dry. Do not submerge the incision site in water such as to take a bath or go swimming etc. for 3 weeks. Do not lift greater than 20 pounds for 3 weeks. Otherwise, please continue with activity as tolerated. Do not drive until you can turn your head well enough to safely check your blind spots. Your blood pressures have been on the lower side since surgery. Due to this, please hold your losartan-hydrochlorothiazide (Cozaar) and metoprolol for now. Please check your blood pressure 1-2 times a day at home. When your systolic blood pressure (top number) is greater than 140 then please restart your metoprolol first. If after you have restarted your metoprolol your blood pressure remains >140 for 24 hours then restart your losartan-hydrochlorothiazide (Cozaar) as usual. If you have any questions about this, please call the office. You are scheduled for follow-up in the office on 08/27/24 at 1:30 PM. If you have any questions, concerns, or need to change your appointment time, please contact the office at [phone]. Please Follow Up With: Louise Watson PA When: 08/27/24 at 1:30 PM Meaningful Use Info Meaningful Use Meaningful Use Diagnoses (Choose all that apply): None applicable Ischemic Stroke Statin Dosing Therapy Reference: STATIN DOSE THERAPY REFERENCE: * Patients > 75 years receive moderate or high dose statin therapy. * Patients 75 years or YOUNGER should receive HIGH intensity statin dose unless contraindicated. You will be required to document reason for non-treatment if statin daily dose does not meet guidelines. HIGH DOSE STATIN THERAPY DAILY Atorvastatin > than or = to 40 mg Rosuvastatin > than or = to 20 mg Amlodipine + Atorvastatin > than or = to 2.5/40 mg Ezetimibe + Simvastatin 10/80 mg Simvastatin 80mg Discharge Plan Admission Admit Date/Time: 08/12/24 14:47 Attending Provider: Ronni Rae Primary Care Provider: Sade Ocampo Instructions Additional Instructions / Restrictions: You have a small bandage over the site from which the surgical drain was removed. You may remove this bandage tomorrow after your shower. As long as there is no residual drainage, you may leave this open to air. If you do notice some continued drainage, you may re-cover with a Band-Aid. Your incision site is covered with surgical glue which will continue to protect it. The surgical glue will peel/flake off on its own over the next few weeks. Please do not pick at it. You may shower tomorrow. It is okay for soap and water to rinse over the incision site, pat to dry. Do not submerge the incision site in water such as to take a bath or go swimming etc. for 3 weeks. Do not lift greater than 20 pounds for 3 weeks. Otherwise, please continue with activity as tolerated. Do not drive until you can turn your head well enough to safely check your blind spots. Your blood pressures have been on the lower side since surgery. Due to this, please hold your losartan-hydrochlorothiazide (Cozaar) and metoprolol for now. Please check your blood pressure 1-2 times a day at home. When your systolic blood pressure (top number) is greater than 140 then please restart your metoprolol first. If after you have restarted your metoprolol your blood pressure remains >140 for 24 hours then restart your losartan-hydrochlorothiazide (Cozaar) as usual. If you have any questions about this, please call the office. You are scheduled for follow-up in the office on 08/27/24 at 1:30 PM. If you have any questions, concerns, or need to change your appointment time, please contact the office at [phone]. Discharge Orders/Prescriptions Prescriptions: Continued gabapentin 300 mg capsule 300 mg PO TID rosuvastatin 20 mg tablet 20 mg PO DAILY pantoprazole 40 MG tablet 40 mg PO DAILY magnesium 250 mg Tablet 250 mg PO DAILY Patient Comments: patient states potassium included in this tablet but unsure of dosage cholecalciferol (vitamin D3) [Vitamin D3] 50 mcg (2,000 unit) Capsule 5,000 unit PO DAILY aspirin 81 mg Tablet,Chewable 81 mg PO QODAY METANZ 1 cap PO BID cyclobenzaprine 10 mg tablet 10 mg PO TID PRN (Reason: muscle pain) Held metoprolol succinate 25 mg tablet extended release 24 hr 25 mg PO QHS Hold Instructions: Resume on 08/16/24. Hold until systolic blood pressure (top number) is greater than 140 losartan-hydrochlorothiazide 100-25 mg tablet 1 tab PO DAILY Hold Instructions: Resume on 08/17/24. Hold until systolic blood pressure (top number) is greater than 140. Patient Comments: take 1 tablet by mouth once daily Referrals / Follow Up: Sade Ocampo MD [Primary Care Provider] - Disposition Disposition (needs filled in before D/C Order can be placed): Home, Self Care
[2024-08-14 07:43] LABS: ACT Activated Clotting Time 232 sec (74-137)
[2024-08-14 07:43] LABS: ACT Activated Clotting Time 281 sec (74-137)
[2024-08-14 07:43] LABS: ACT Activated Clotting Time 140 sec (74-137)
[2024-08-29 07:19] LABS: INR Fingerstick 0.9
== END 2024-08-13 17:44 | disposition home or self-care (01) | DRG 39 ==
PROVIDERS: Anesthesiology; Admitting Provider Surgery Trauma Surgery; PCP Internal Medicine; Referring Provider Surgery Trauma Surgery; Visit Provider Surgery Trauma Surgery
PROC: 03CM0ZZ Extirpation of Matter from Right External Carotid Artery, Open Approach (ICD-10-PCS; CPT 35301; principal; 2024-08-12 10:40)
DX: I65.21 Occlusion and stenosis of right carotid artery (principal); E78.00 Pure hypercholesterolemia, unspecified; I10 Essential (primary) hypertension; Z90.710 Acquired absence of both cervix and uterus
CPT/HCPCS: 36416; 85025; 85347; 85610; 85730; 88304; 88311; 94668; 99252; A4648; J7030; J7040; J7120; A4216; G0463; J2405

== ENCOUNTER 2024-09-11 14:13 | Outpatient (RCR) | payer MEDICARE, OTHER, SELFPAY ==
--- NOTE | 2024-09-11 15:30 | HP.PTEVAL_ITS ---
Patient's Visit Information Visit Information Visit Information: SACHIN LYNN is a 78 year old F referred to Physical Therapy by BARBARA Bird with a diagnosis of RIGHT SHOULDER PAIN. Date of Evaluation: 09/11/24 Physical Therapist: Juan Magaña, PT, Cert MDT, OCS Visit Plan Frequency: 1-2x /Week Duration: 3 Weeks Plan: PATIENT TO RETURN 3-4 WEEKS FOCUS ON HEP PT INTERVTIONS MANUAL THERAPY PROM/G-H JOINT MOBILIZATION GRADE 2- 3,PROM/STRETCHING ,AAROM ,STRENGTHENING RTC/SCAPULAR Subjective Subjective: This 78 y/o female presents to physical therapy with right shoulder pain. Patient developed right shoulder pain after post surgery carotid endarterectomy on Aug 12 . Patient seen PA of Dr Rae and recommended PT . PA thought positioning arm during surgery. Located pain left neck and UT global shoulder scapular . Aggravating factors lifting arm OH above 90 degrees and self hygiene such as combing hair. Alleviating ice. No medication for pain . Denies paresthesia/tingling -. Pain described as ache. Denies MONDRAGON /nausea/dizziness/tinnitus. Patient no prior shoulder pain post .surgery . Patient condition affects QOL and function with ADLS and housework tasks. Patient goals to decrease pain and function of shoulder. SOCIAL: VOCATION: rtired Pain Right Shoulder: Pain Intensity (Out of 10): 5 Objective Objective: POSTURE : mild forward posture PALAPTION: tender global shoulder NEURO: denies paresthesia/tingling AROM: shoulder flexion 110 degrees ,abduction 105 degrees ,ER 70 degrees IR T10 PROM: shoulder flexion 130 degrees ,abduction 140 degrees in scaption MMT: RTC 4/5 ,DEL,TOID 3+/5 CAPSULAR RESTRICTION: mod tight G-H HMERAL FUNCTION: 1:1 ratio Special Tests R Shoulder Drop Sign - IS Test: Negative R Shoulder Empty Can - SS: Negative R Shoulder Neer - Impingement: Positive R Shoulder Casper Ryan - Impingement: Positive R Shoulder Shrug Sign - OA/Adhesive Capsulitis: Positive Balance/Special Test Scores Quick DASH Score: 52.2725 Goals Goal 1:: Patient to be I with HEP for shoulder Goal Time Frame: 4-6 Weeks Goal 2:: Patient to improve TOM M shoulder flexion/abduction by 15 degrees> for reaching OH and ADL/self hygiene Goal Time Frame: 4-6 Weeks Goal 3:: Patient to improve demonstrate 50% improvement with less pain and improved function wITH ADLS Goal Time Frame: 4-6 Weeks Goal 4:: Patient to improve Quick dash by 5 points to improve QOL and function Goal Time Frame: 4-6 Weeks Rehabilitation Potential Physical Therapy Diagnosis: This patient has adhesive capsulitis with tight capsule impair AROM for ADL and functional activity above 90 degrees and self hygiene thus benefit from skilled PT Rehabilitation Potential: Good Anticipated Interventions Patient/Client Instruction: Educate patient on: Condition and Plan of Care For the Purpose of:: To decrease pain, To increase ROM, To improve muscle perfo rmance and motor function, To improve ability to perform ADL's, To improve ability of physical actions for home/community/work/leisure, To improve health of tissue, To decrease soft tissue restriction and To increase flexibility/ROM Therapeutic Exercise to Include: Strength training, Postural training, Flexibilty training, Passive ROM, Active ROM and Scapular Strength/Stabilization Comment: RTC For the Purpose of:: To decrease pain, To increase ROM, To improve muscle performance and motor function, To increase tolerance to activity/condition/position, To improve ability of physical actions for home/community/work/leisure, To improve health of tissue, To decrease soft tissue restriction and To increase flexibility/ROM Manual Therapy Techniques to Include: Mobilization and Passive ROM For the Purpose of:: To decrease pain, To increase ROM, To improve health of tissue, To decrease soft tissue restriction and To increase flexibility/ROM Text: Thank you for the opportunity to evaluate your patient. For Medicare and Medicare HMO plans, please review the plan of care and approve it. It will need to be FAXED BACK to us at [phone] for Medicare purposes. For Medicare only, by signing this I certify the plan of care. Please let me know if there are questions or concerns regarding this plan of care. Physician Signature: Date:
--- NOTE | 2024-10-29 16:03 | HP.PT.NRP ---
Patient Information Patient Information: SACHIN LYNN was seen in my office for initial evaluation on 09/11/24. The following Plan of Care was established for this patient: POC Established Initial Frequency: 1-2x /Week Initial Duration: 3 Weeks Anticipated Interventions Patient/Client Instruction: Educate patient on: Condition and Plan of Care For the Purpose of:: To decrease pain, To increase ROM, To improve muscle performance and motor function, To improve ability to perform ADL's, To improve ability of physical actions for home/community/work/leisure, To improve health of tissue, To decrease soft tissue restriction and To increase flexibility/ROM Therapeutic Exercise to Include: Strength training, Postural training, Flexibilty training, Passive ROM, Active ROM and Scapular Strength/Stabilization For the Purpose of:: To decrease pain, To increase ROM, To improve muscle performance and motor function, To increase tolerance to activity/condition/position, To improve ability of physical actions for home/community/work/leisure, To improve health of tissue, To decrease soft tissue restriction and To increase flexibility/ROM Manual Therapy Techniques to Include: Mobilization and Passive ROM For the Purpose of:: To decrease pain, To increase ROM, To improve health of tissue, To decrease soft tissue restriction and To increase flexibility/ROM Last Seen Last Seen: This patient was last seen in our office . Pertinent comments regarding their Physical therapy will appear below: Patient seen for PT for shoulder pain for HEP At this point I will be discontinuing this patient from physical therapy. I would be happy to see this patient again in the future if found appropriate by the physician. Thank you! Juan Magaña, PT, Cert MDT, OCS Balance/Gait/Functional tests Balance/Special Test Scores Quick DASH Score: 52.0472
== END 2024-09-11 19:00 | disposition home or self-care (01) ==
LOC: PT 14:13
PROVIDERS: PCP Internal Medicine; Referring Provider Physician Assistant; Visit Provider Physician Assistant
DX: M25.511 Pain in right shoulder (principal)
CPT/HCPCS: 97110; 97162

== ENCOUNTER → 2025-01-15 | Outpatient (CLI) | payer MEDICARE, OTHER, SELFPAY ==
--- NOTE | 2025-01-15 13:00 | BI_ITS ---
EXAM: SCRN MAMM (CAD)W/LJ BILAT DATE: 01/15/2025 CLINICAL HISTORY: F, Age 79 y/o , SCRN MAMM (CAD)W/LJ BILAT. Grandmother with breast cancer. History of prior right cyst drainage. BREAST CANCER RISK ASSESSMENT: Not assessed TECHNIQUE: Bilateral screening digital breast tomosynthesis with 2D and 3D images. Computer aided detection. COMPARISON: Prior exam(s) dating back to December 29, 2023.. FINDINGS: Bilateral Breast Mammographic Findings: No significant masses, calcifications or other abnormalities are identified. TISSUE DENSITY: The breast tissue is composed of scattered area of fibroglandular density. Stable bilateral secretory calcifications more prominent in the right breast. BI/SCRN MAMM (CAD)W/LJ BILAT IMPRESSION: Right Breast: BIRADS 2 BENIGN FINDING. Left Breast: BIRADS 2 BENIGN FINDING. OVERALL FINAL ASSESSMENT: BIRADS 2 BENIGN FINDING RECOMMENDATION: ROUTINE ANNUAL FOLLOW-UP Bilateral in 1 Year Normal interval followup mammograms are recommended in 12 months. A letter with findings and recommendations will be mailed to the patient. Reading Location: [place] [id number]
--- NOTE | 2025-01-15 13:16 | BD_ITS ---
PROCEDURE: DEXA BONE DENSITY STUDY REASON FOR EXAM: None provided. TECHNIQUE: DEXA scan of the lumbar spine and hips, using a Hologic Horizon W unit. REFERENCE LINKS: ISCD Adult Positions COMPARISON: 11/01/2022 FINDINGS: LUMBAR SPINE: Bone mineral denisty, L1 and L4: 1.170 g/cm??? T-score: 1.2 LEFT FEMORAL NECK: Bone mineral denisty: 0.694 g/cm??? T-score: -1.4 LEFT TOTAL HIP: Bone mineral denisty: 0.927 g/cm??? T-score: -0.1 RIGHT FEMORAL NECK: Bone mineral denisty: 0.743 g/cm??? T-score: -1.0 RIGHT TOTAL HIP: Bone mineral denisty: 0.939 g/cm??? T-score: 0.0 FRAX*: 10 Year Probability of Fracture: Major Osteoporotic Fracture(1): 18.0% Hip Fracture(2): 3.5% *FRAX is a trademark of the [employer]'s [employer] for Metabolic Bone Disease, World Health Organization (WHO) Collaborating [employer]. 1-Major Osteoporotic Fracture: Clinical Spine, Forearm, Hip or Shoulder. 2-The 10-year probability of fracture may be lower than reported if the patient has received treatment. BD/Dexa Bone Density Study IMPRESSION: 1. Osteopenia. 2. Since 11/01/2022, there has been a decrease of 6.9% in the bone mineral dens ity of the total LEFT hip. 3. Additional description as above. Reading Location: [id number]
== END | disposition home or self-care (01) ==
PROVIDERS: PCP Internal Medicine; Referring Provider Internal Medicine; Visit Provider Internal Medicine
DX: Z12.31 Encounter for screening mammogram for malignant neoplasm of breast (principal); Z78.0 Asymptomatic menopausal state
CPT/HCPCS: 77063; 77067; 77080

== ENCOUNTER → 2025-03-20 | Outpatient (CLI) | payer MEDICARE, OTHER, SELFPAY ==
--- NOTE | 2025-03-20 10:53 | CDU_ITS ---
Reason For Study Reason For Study: S/P R CEA Rt. Velocities/BP Lt. Velocities/BP Prox CCA 104.7/22.5 cm/sec. Prox CCA 93.7/20.6 cm/sec. Mid CCA 82.7/13.3 cm/sec. Mid CCA 84.6/15.2 cm/sec. Dist CCA 104.7/20.6 cm/sec. Dist CCA 95.5/17.0 cm/sec. Prox ICA 132.1/27.9 cm/sec. Prox ICA 63.0/15.1 cm/sec. Mid ICA 132.1/35.3 cm/sec. Mid ICA 106.5/27.9 cm/sec. Dist ICA 113.8/22.5 cm/sec. Dist ICA 90.0/22.5 cm/sec. Rt. ICA/CCA = 1.6. Lt. ICA/CCA = 1.3. Prox ECA 179.6/11.1 cm/sec. Prox ECA 156.5/5.0 cm/sec. Rt. Vert. 63.0/13.5 cm/sec. Lt. Vert. 47.6/10.2 cm/sec. Right Extracranial There is homogeneous, smooth atherosclerotic plaque noted in the right common carotid artery. There is homogeneous, smooth atherosclerotic plaque noted in the right internal carotid artery. S/P Rt CEA. There is intimal thickening but no significant atherosclerotic plaque noted in the right external carotid artery. Antegrade flow is noted in the right vertebral artery. Left Extracranial There is homogeneous, smooth atherosclerotic plaque noted in the left common carotid artery. There is homogeneous, smooth atherosclerotic plaque noted in the left internal carotid artery. There is heterogeneous, irregular atherosclerotic plaque noted in the left external carotid artery. Antegrade flow is noted in the left vertebral artery. Procedure Carotid Duplex 40924. This is a Carotid Duplex examination using B-mode, color flow and specral Doppler. Exam performed in department. VL/Carotid Duplex Ultrasound Interpretation Summary Moderate (50-69%) stenosis right extracranial internal carotid. Mild (<50%) stenosis left extracranial internal carotid. Patent and antegrade vertebrals bilaterally. Ordering Physician: Louise Watson Referring Physician: Sade Ocampo M.D. Performed By: Liza Chapa RVT
== END | disposition home or self-care (01) ==
LOC: CVS 10:52
PROVIDERS: PCP Internal Medicine; Referring Provider Physician Assistant; Visit Provider Physician Assistant
DX: Z48.812 Encounter for surgical aftercare following surgery on the circulatory system (principal); I65.21 Occlusion and stenosis of right carotid artery
CPT/HCPCS: 93880

== ENCOUNTER → 2025-09-10 | Outpatient (CLI) | payer MEDICARE, OTHER, SELFPAY ==
[2025-09-10 15:22] LABS: Mucous, Urine 0 SEEN /hpf (<or=2+)
[2025-09-10 15:38] LABS: Hematocrit 39.5 % (37-47); Hemoglobin 13.9 g/dL (12.0-15.0); Immature Granulocytes Count 0.010 X10^3/uL (0.0-0.0); Mean Corp Hgb Conc 35.2 g/dL (32-36); Mean Corpuscular Volume 96.6 fL (81-99); Mean Platelet Vol. 10.0 fl (6.2-12.0); NRBC Flagged by Analyzer 0 % (0-5); Platelet Count 172 K/mm3 (150-450); RBC Distribution Width CV 13.2 % (11.6-14.6); RBC Distribution Width SD 45.8 fl (35.1-43.9); Red Blood Count 4.09 M/mm3 (4.2-5.4); White Blood Count 3.1 K/mm3 (4.4-11.0)
[2025-09-10 16:10] LABS: Color, Urine Yellow (Yellow); Glucose, Dipstick Normal (Normal); Ketone-Dipstick Negative (Negative); Leukocyte Esterase-Dipstick Negative /ul (Negative); Nitrite-Dipstick Negative (Negative); Occult Blood-Urine 10 /ul (Negative); Protein-Dipstick Negative (Negative); Specific Gravity, Urine 1.005 (1.002-1.030); Urine Bilirubin Dipstick Negative (Negative)
[2025-09-10 16:27] LABS: Squamous Epithelial Cells - UA 0-5 SEEN /hpf (5-10)
[2025-09-10 16:28] LABS: Red Blood Cells-Urine 0-5 SEEN /hpf (0-5)
[2025-09-10 16:44] LABS: Creatinine, Urine (random) 38.00 mg/dL (28.00-217.00); Microalbumin,Random Urine < 12.0 mg/L (<20 mg/L)
[2025-09-10 16:46] LABS: AST(SGOT) 40 U/L (<=31); Alanine Aminotransfer ALT/SGPT 36 U/L (<=34); Albumin, Serum 4.4 g/dL (3.4-4.8); Alkaline Phosphatase 114 U/L (35-104); Anion Gap 13 (5-15); BUN 18 mg/dL (4-19); BUN/Creat Ratio 26.2 RATIO (10-20); Calcium,Total 9.6 mg/dL (7.6-11.0); Carbon Dioxide 24.7 mmol/L (21.0-32.0); Chloride 102 mmol/L (98-108); Globulin 2.0 g/dL (2.2-4.2); Glucose 107 mg/dL (70-99); Potassium 3.9 mmol/L (3.3-5.1)
== END | disposition home or self-care (01) ==
LOC: LABSPEC 12:12
PROVIDERS: PCP Internal Medicine; Referring Provider Internal Medicine; Visit Provider Internal Medicine
DX: I10 Essential (primary) hypertension (principal)
CPT/HCPCS: 80053; 81001; 82043; 82570; 85025